=== PATIENT | male | born 1945 | race Two or more races ===

== ENCOUNTER 2020-02-06 09:30 | Outpatient (REF) | payer MEDICARE, SELFPAY | END 2020-02-06 09:31 | disposition home or self-care (01) | LOC: HO.LAB 09:30 | PROVIDERS: Visit Provider Internal Medicine | DX: Z20.828 Contact with and (suspected) exposure to other viral communicable diseases (principal) | CPT/HCPCS: C9803; U0003 ==

== ENCOUNTER 2020-06-04 10:47 | Outpatient (REF) | payer MEDICARE, SELFPAY ==
[2020-06-05 11:32] LABS: Free Prostate Spec Ag 0.1 ng/mL; Percent Free Prostate Spec Ag 25 % (calc) (>25); Prostate Specific Ag Total 0.4 ng/mL (< OR = 4.0)
== END 2020-06-04 10:48 | disposition home or self-care (01) ==
LOC: HO.LAB 10:47
PROVIDERS: PCP Internal Medicine; Visit Provider Urology
DX: N40.1 Benign prostatic hyperplasia with lower urinary tract symptoms (principal); Z12.5 Encounter for screening for malignant neoplasm of prostate
CPT/HCPCS: 36415; 84153; 84154

== ENCOUNTER → 2020-06-11 10:23 | Outpatient (BNVA) | payer MEDICARE, SELFPAY | PROVIDERS: PCP Internal Medicine; Visit Provider Urology | CPT/HCPCS: Q3014 ==

== ENCOUNTER 2020-10-13 16:11 | Outpatient (REF) | payer MEDICARE, SELFPAY ==
[2020-10-13 18:11] LABS: Erythrocyte Sedimentation Rate 8 MM/HR (0-15)
== END 2020-10-13 16:12 | disposition home or self-care (01) ==
LOC: HO.LAB 16:11
PROVIDERS: PCP Internal Medicine; Visit Provider Psychiatry & Neurology Neurology
DX: G43.909 Migraine, unspecified, not intractable, without status migrainosus (principal)
CPT/HCPCS: 36415; 85652

== ENCOUNTER 2020-11-20 10:12 | Day surgery (SDC) | payer MEDICARE, SELFPAY ==
[2020-11-13 10:59] VITALS: BMI 26.2
--- NOTE | 2020-11-16 10:57 | P.CONAN_ITS ---
Documented by User: Florence Olivares NP 11/19/20 10:46 HPI - Anesthesia Eval Consult details Narrative: 75yo M for Upper Endoscopy and Colonoscopy Stable at Routine cardiac OV 08/2020 [facility] Active Problems Active Problems: All Active Problems (Updated 11/13/20 @ 14:24 by Hillary Pinzon, ANGELICA) BPH w urinary obs/LUTS (Acute) Weak urinary stream (Acute) Erectile dysfunction (Acute) Past Medical History Medical History Arteriosclerosis Arthritis Asthma Cancer CVA (cerebral vascular accident) Diastolic dysfunction Elevated cholesterol Erectile dysfunction GERD (gastroesophageal reflux disease) Non-ischemic cardiomyopathy Pulmonary nodule Family History Family History Father No problems noted. Mother No problems noted. Surgical History Surgical History H/O colonoscopy History of ankle surgery History of appendectomy History of esophagogastroduodenoscopy (EGD) History of hemorrhoidectomy History of surgical removal of skin lesion Hx of cataract extraction Hx of transurethral resection of prostate Social History Social History Advance Directives: No (unknown) Advance Directives Information Provided: Yes Meds Allergies Allergy/AdvReac Type Severity Reaction Status Date / Time lisinopril [LISINOPRIL] Allergy Intermediate COUGH Verified 11/13/20 13:35 oxycodone [From PERCOCET] Allergy Intermediate VOMITING Verified 11/13/20 13:35 alprazolam [From XANAX] AdvReac Intermediate VOMITING Verified 11/13/20 13:35 gabapentin AdvReac Abdominal Verified 11/20/20 10:23 Pain Home Medications Medication Instructions Recorded Confirmed Last Taken Type amitriptyline 25 mg tablet 25 mg PO DAILY 01/28/20 11/13/20 Unknown History esomeprazole magnesium 40 mg 40 mg PO DAILY 01/28/20 Unknown History capsule,delayed release furosemide 20 mg tablet (Lasix) 20 mg PO DAILY 01/28/20 Unknown History gabapentin 100 mg capsule 100 mg PO DAILY 01/28/20 Unknown History metoprolol succinate 25 mg 50 mg PO DAILY 01/28/20 11/13/20 11/20/20 History tablet,extended release 24 hr mirabegron 25 mg tablet,extended 25 mg PO DAILY 01/28/20 Unknown History release 24 hr (Myrbetriq) pantoprazole 20 mg tablet,delayed 20 mg PO DAILY 01/28/20 11/13/20 11/20/20 History release sildenafil 100 mg tablet 100 mg PO DAILY PRN 01/28/20 Unknown History tamsulosin 0.4 mg capsule 0.4 mg PO DAILY 01/28/20 Unknown History albuterol sulfate 2.5 mg INHALATION QID PRN 06/11/20 11/13/20 Unknown History aspirin 81 mg tablet,delayed 81 mg PO DAILY 06/11/20 11/13/20 Unknown History release atorvastatin 80 mg tablet 80 mg PO DAILY 06/11/20 11/13/20 Unknown History diclofenac sodium 1 % topical gel 1 g TOPICAL BID PRN 06/11/20 Unknown History losartan 100 mg tablet 100 mg PO DAILY 06/11/20 11/13/20 11/20/20 History multivitamin 1 tab PO DAILY 06/11/20 11/13/20 Unknown History timolol maleate 0.5 % eye drops 1 drp OPHTHALMIC-RIGHT QAM 06/11/20 Unknown History albuterol sulfate 90 mcg/actuation 2 puff INHALATION Q4-6H PRN 11/13/20 11/13/20 Unknown History aerosol inhaler (Ventolin HFA) Exam Exam Date and Time: November 16, 2020 105 Height,Weight and Vital Signs: Height 5 ft 7 in Weight 75.75 kg Narrative Narrative: EKG 02/2020 SB @ 55 Otherwise normal ECHO 2020 LV systolic function low normal with EF 50-55 LA size is normal Trace mitral regurg No pulm htn Asc aorta is normal size No change from 2018 Carotid US 08/2020 R ICA 16-49% stenosis L ICA plaque is complex and irregular Assessment and Plan Assessment Anesthesia Assessment: Chart Reviewed Documented by User: Karyn Zhou MD 11/20/20 10:51 [facility] Past Medical History Medical History Arteriosclerosis Arthritis Asthma Cancer CVA (cerebral vascular accident) Diastolic dysfunction Elevated cholesterol Erectile dysfunction GERD (gastroesophageal reflux disease) Non-ischemic cardiomyopathy Pulmonary nodule Family History Family History Father No problems noted. Mother No problems noted. Family history of problems with anesthesia: No Surgical History Surgical History H/O colonoscopy History of ankle surgery History of appendectomy History of esophagogastroduodenoscopy (EGD) History of hemorrhoidectomy History of surgical removal of skin lesion Hx of cataract extraction Hx of transurethral resection of prostate History of Problems with Anesthesia: No Social History Social History Advance Directives: No (unknown) Advance Directives Information Provided: Yes Meds Allergies Allergy/AdvReac Type Severity Reaction Status Date / Time lisinopril [LISINOPRIL] Allergy Intermediate COUGH Verified 11/13/20 13:35 oxycodone [From PERCOCET] Allergy Intermediate VOMITING Verified 11/13/20 13:35 alprazolam [From XANAX] AdvReac Intermediate VOMITING Verified 11/13/20 13:35 gabapentin AdvReac Abdominal Verified 11/20/20 10:23 Pain Home Medications Medication Instructions Recorded Confirmed Last Taken Type amitriptyline 25 mg tablet 25 mg PO DAILY 01/28/20 11/13/20 Unknown History esomeprazole magnesium 40 mg 40 mg PO DAILY 01/28/20 Unknown History capsule,delayed release furosemide 20 mg tablet (Lasix) 20 mg PO DAILY 01/28/20 Unknown History gabapentin 100 mg capsule 100 mg PO DAILY 01/28/20 Unknown History metoprolol succinate 25 mg 50 mg PO DAILY 01/28/20 11/13/20 11/20/20 History tablet,extended release 24 hr mirabegron 25 mg tablet,extended 25 mg PO DAILY 01/28/20 Unknown History release 24 hr (Myrbetriq) pantoprazole 20 mg tablet,delayed 20 mg PO DAILY 01/28/20 11/13/20 11/20/20 History release sildenafil 100 mg tablet 100 mg PO DAILY PRN 01/28/20 Unknown History tamsulosin 0.4 mg capsule 0.4 mg PO DAILY 01/28/20 Unknown History albuterol sulfate 2.5 mg INHALATION QID PRN 06/11/20 11/13/20 Unknown History aspirin 81 mg tablet,delayed 81 mg PO DAILY 06/11/20 11/13/20 Unknown History release atorvastatin 80 mg tablet 80 mg PO DAILY 06/11/20 11/13/20 Unknown History diclofenac sodium 1 % topical gel 1 g TOPICAL BID PRN 06/11/20 Unknown History losartan 100 mg tablet 100 mg PO DAILY 06/11/20 11/13/20 11/20/20 History multivitamin 1 tab PO DAILY 06/11/20 11/13/20 Unknown History timolol maleate 0.5 % eye drops 1 drp OPHTHALMIC-RIGHT QAM 06/11/20 Unknown History albuterol sulfate 90 mcg/actuation 2 puff INHALATION Q4-6H PRN 11/13/20 11/13/20 Unknown History aerosol inhaler (Ventolin HFA) Exam Height,Weight and Vital Signs: Height 5 ft 7 in Weight 75.75 kg Vital Signs Temp Pulse Resp BP Pulse Ox 11/20/20 10:25 97.3 F 72 16 146/96 H 96 Airway Mallampati Class: II TM Dist: >3cm Neck ROM: Full Partial: Upper Heart: RRR Lungs: CTAB Assessment and Plan Assessment Anesthesia Assessment: Anesthesia Plan Discussed Final Anesthetic Review Family History of Problems with Anesthesia: No History of Problems with Anesthesia: No NPO: Yes ASA Class: III Final Preanesthetic Review: No Changes in Pt Med Stat, Meds/Allgs Chart Reviewed, Consent Obtained/Reviewed and Anes Risks/Benef Reviewed Patient Risk: Intermediate Procedure Risk: Low Assessment/Block/Sedation in SS: Assess/Block/Sedation-SS Anesthetic Plan Anesthetic Plan: MAC: Disposition: Standard PACU
[2020-11-20 10:25] VITALS: BP 146/96; PULSE 72; RESP 16; TEMP 36.3; O2SAT 96
[2020-11-20] MEDS: Lactated Ringers 1,000 ML 50 ML IVCONT (10:34)
--- NOTE | 2020-11-20 10:49 | MHC.SHP ---
Pre-Procedural Eval Section A Date of Service: 11/20/20 The patient is an INPATIENT: No Changes since office visit: No Cold of Flu in the past 2 weeks, No New Medical Problems, No Changes in Medication and No Patient answered all questions The History & Physical has been completed within 30 days and I have reviewed it.: Yes Section B Chief Complaint: hx of polyps,epigastric pain Allergies: Allergies Allergy/AdvReac Type Severity Reaction Status Date / Time lisinopril [LISINOPRIL] Allergy Intermediate COUGH Verified 11/13/20 13:35 oxycodone [From PERCOCET] Allergy Intermediate VOMITING Verified 11/13/20 13:35 alprazolam [From XANAX] AdvReac Intermediate VOMITING Verified 11/13/20 13:35 gabapentin AdvReac Abdominal Verified 11/20/20 10:23 Pain Plan I have reviewed the history and physical and performed a pertinent physical examination on my patient. No changes have occurred unless specified.
[2020-11-20 11:37] VITALS: BP 122/76; PULSE 56; RESP 16; TEMP 36.1; O2SAT 97
--- NOTE | 2020-11-20 11:44 | P.BOP_ITS ---
Brief Operative Note Date of Service: 11/20/20 Pre-op diagnosis: epigastric pain hx polyps Post-op diagnosis: same (gerd, colon polyps) Procedure: egd colonosocpy Surgeon: Glenn Monroy Anesthesia: MAC Was an Business Intelligence Analyst used for this Procedure?: No Estimated blood loss (mL): 5 Condition: stable Disposition: PACU
[2020-11-20 11:52] VITALS: BP 138/87; PULSE 56; RESP 16; O2SAT 95
[2020-11-20 12:07] VITALS: BP 146/83; PULSE 53; RESP 16; O2SAT 98
--- NOTE | 2020-11-20 13:57 | OP_ITS ---
SURGEON: lGenn Monroy MD INDICATIONS: 1. Gastroesophageal reflux disease. 2. Personal history of colon polyps. 3. Epigastric pain. PREOPERATIVE DIAGNOSIS: POSTOPERATIVE DIAGNOSIS: PROCEDURE PERFORMED: Upper endoscopy with biopsy, colonoscopy to the terminal ileum with biopsy and snare polypectomy. ESTIMATED BLOOD LOSS: COMPLICATIONS: ANESTHESIA: ASSISTANTS: SPECIMENS: MEDICATIONS: Monitored anesthesia care. DESCRIPTION OF PROCEDURE: History and physical performed. The risks and benefits of the procedure were explained to the patient. Informed consent was obtained. The patient was placed in the left lateral decubitus position. A digital rectal exam was performed prior to the colonoscopy and was normal. First, the Olympus video gastroscope was introduced into the esophagus, stomach, and duodenum. Examination was performed and the scope was removed. He was repositioned for colonoscopy. Digital rectal exam was performed as above. The Olympus pediatric video colonoscope was introduced into the rectum and advanced to the cecum without difficulty. The cecum was identified by transillumination, palpation, and identification of ileocecal valve. Examination was performed and the scope was removed. He tolerated both procedures well and was taken to recovery area in stable condition. FINDINGS: UPPER ENDOSCOPY: Esophagus: The esophagus was normal. There was no esophagitis. Biopsies were obtained from the EG junction. Stomach: The stomach showed no evidence of masses, ulcers, or polyps. Antral biopsies were obtained. Duodenum: The bulb and second portion were normal. Biopsies were obtained from the second portion. COLONOSCOPY: The terminal ileum was normal. There were 2 polyps in the cecum, one less than 5 mm, was removed with biopsy forceps. The other measured approximately 6 mm and were removed with a snare. The mucosa appeared normal. There was mild diverticulosis of the sigmoid. At 45 cm, was a 6 mm polyp, which was snared. Random biopsies were obtained from the sigmoid. Retroflexed examination was normal. There were some small internal hemorrhoids. IMPRESSION: 1. Gastroesophageal reflux disease. 2. Colon polyps. RECOMMENDATION: Follow up the biopsy results. MD MATTIE Soni/YESENIA / [id number]
== END 2020-11-20 13:25 | disposition home or self-care (01) ==
PROVIDERS: PCP Internal Medicine; Visit Provider Internal Medicine Gastroenterology
PROC: (CPT 43239; principal; 2020-11-20 10:30)
DX: R10.13 Epigastric pain (principal); R19.4 Change in bowel habit; D12.0 Benign neoplasm of cecum; D12.3 Benign neoplasm of transverse colon; D12.6 Benign neoplasm of colon, unspecified; K64.8 Other hemorrhoids; K57.30 Diverticulosis of large intestine without perforation or abscess without bleeding; K21.9 Gastro-esophageal reflux disease without esophagitis; I10 Essential (primary) hypertension; Z86.010 Personal history of colon polyps
CPT/HCPCS: 43239; 45380; 45385; 88305; 88342

== ENCOUNTER 2021-06-07 10:55 | Outpatient (REF) | payer MEDICARE, SELFPAY ==
[2021-06-07 12:56] LABS: Prostate Specific Antigen 0.37 ng/mL (<0.05-4.0)
== END 2021-06-07 10:56 | disposition home or self-care (01) ==
LOC: HO.LAB 10:55
PROVIDERS: PCP Internal Medicine; Visit Provider Urology
DX: Z12.5 Encounter for screening for malignant neoplasm of prostate (principal); N13.8 Other obstructive and reflux uropathy; N40.1 Benign prostatic hyperplasia with lower urinary tract symptoms
CPT/HCPCS: 36415; 84153

== ENCOUNTER → 2021-06-15 10:22 | Outpatient (BNVA) | payer MEDICARE, SELFPAY | PROVIDERS: PCP Internal Medicine; Visit Provider Urology | DX: N40.1 Benign prostatic hyperplasia with lower urinary tract symptoms (principal); N13.8 Other obstructive and reflux uropathy; R39.12 Poor urinary stream; N52.9 Male erectile dysfunction, unspecified | CPT/HCPCS: Q3014 ==

== ENCOUNTER 2021-08-20 10:23 | Outpatient (REF) | payer OTHER, SELFPAY ==
[2021-08-20 11:21] LABS: Appearance Urine CLEAR; Color Urine YELLOW; Glucose Urine UA NEG (NEG); Leukocyte Esterase Urine NEG (NEG); Nitrite Urine NEG (NEG); Specific Gravity - Urine <= 1.005 (1.005-1.025); Urine Blood NEG (NEG); Urine Ketones NEG (NEG); Urine Protein NEG (NEG-TRACE)
[2021-08-20 11:32] LABS: Mucus Urine TRACE /LPF; RBC Urine 0-2 /HPF (0); WBC Urine 0-2 /HPF (0-4)
== END 2021-08-20 10:24 | disposition home or self-care (01) ==
LOC: HO.LAB 10:23
PROVIDERS: PCP Internal Medicine; Visit Provider Urology
DX: N40.1 Benign prostatic hyperplasia with lower urinary tract symptoms (principal); N13.8 Other obstructive and reflux uropathy
CPT/HCPCS: 81001; 87086

== ENCOUNTER 2021-09-24 11:20 | Outpatient (REF) | payer OTHER, SELFPAY ==
[2021-09-24 12:41] LABS: Appearance Urine CLEAR; Color Urine YELLOW; Glucose Urine UA NEG (NEG); Leukocyte Esterase Urine NEG (NEG); Nitrite Urine NEG (NEG); Urine Blood NEG (NEG); Urine Ketones NEG (NEG); Urine Protein NEG (NEG-TRACE)
[2021-09-24 13:00] LABS: Squamous Epithelial Cell Urine TRACE /LPF; WBC Urine 0-2 /HPF (0-4)
[2021-09-24 13:01] LABS: RBC Urine 0-2 /HPF (0)
== END 2021-09-24 11:21 | disposition home or self-care (01) ==
LOC: HO.LAB 11:20
PROVIDERS: PCP Internal Medicine; Visit Provider Urology
DX: N40.1 Benign prostatic hyperplasia with lower urinary tract symptoms (principal); N13.8 Other obstructive and reflux uropathy
CPT/HCPCS: 81001; 87086

== ENCOUNTER → 2021-12-17 12:59 | Outpatient (BNVA) | payer OTHER, SELFPAY | PROVIDERS: PCP Internal Medicine; Visit Provider Urology | DX: N40.1 Benign prostatic hyperplasia with lower urinary tract symptoms (principal); N13.8 Other obstructive and reflux uropathy; N52.9 Male erectile dysfunction, unspecified | CPT/HCPCS: 51798; 99212 ==

== ENCOUNTER 2022-05-30 11:32 | Emergency (ER) | payer OTHER, SELFPAY ==
--- NOTE | ~2022-05-30 | XR_ITS ---
EXAMINATION: XR CHEST CLINICAL INFORMATION: Cough, shortness of breath COMPARISON: Chest radiographs 07/03/2018, 07/19/2016, CT chest 10/02/2018 TECHNIQUE: 2 views of the chest were obtained. FINDINGS: There is no lobar or segmental airspace consolidation or definite groundglass opacity. No effusion. The costophrenic sulci are clear. The heart is normal in size. The hilar and mediastinal contours and bony structures are unremarkable. XR/XR chest 2V IMPRESSION: Unremarkable examination.
[2022-05-30 11:50] VITALS: BP 129/80; BP 144/90; PULSE 70; PULSE 81; RESP 18; TEMP 36.6; O2SAT 97; BMI 24.4
--- NOTE | 2022-05-30 12:02 | PC.NURSE ---
nasal swab/throat swab performed, awaiting multiskill operator to complete triage
[2022-05-30 12:17] LABS: IDNOW Serial# 6674DD1D; Strep A Nucleic Acid Negative (Negative)
--- NOTE | 2022-05-30 12:24 | PC.NURSE ---
patient a&ox3, pt c/o 10/03 body aches and chest discomfort when coughing only, vitals are stable, nasal swab/throat swab performed, pt stated that a relative in the house woke up this am coughing as well. 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
[2022-05-30 12:47] LABS: Influenza A PCR NEGATIVE (Negative); Influenza B PCR NEGATIVE (Negative); Resp Syncy Virus RNA Qual PCR NEGATIVE (Negative); SARS COV2 PCR INHOUSE NEGATIVE (Negative)
--- NOTE | 2022-05-30 13:31 | ED_ITS ---
HPI - General Adult General Chief complaint: Upper Respiratory Symptoms Stated complaint: COUGH W/CP,SORE,FEVER,SOB X'S 2 WEEKS Time Seen by Provider: 05/30/22 12:58 Source: patient Mode of arrival: ambulatory Limitations: no limitations History of Present Illness HPI narrative: 77-year-old male with hypertension, prediabetes presents with cough and mucus production. Symptoms started approximately 3 weeks ago. Describes symptoms as moderate to severe. Associated with a pleuritic type of chest pain, congestion. Symptoms are worse with deep inspiration and coughing. He does produce mucus that is yellow to green in color. He had a fever 1 week ago but that resolved. He has a mild sore and scratchy throat but no difficulty swallowing. Able tolerate liquids and solids well. He has tried Tylenol as needed but no cough suppressant medications. This did not improve his symptoms significantly. He denies any sick contacts. Related Data Home Medications Medication Instructions Recorded Confirmed amitriptyline 25 mg tablet 25 mg PO DAILY 01/28/20 11/13/20 furosemide 20 mg tablet (Lasix) 20 mg PO DAILY 01/28/20 gabapentin 100 mg capsule 100 mg PO DAILY 01/28/20 metoprolol succinate 25 mg 50 mg PO DAILY 01/28/20 11/13/20 tablet,extended release 24 hr sildenafil 100 mg tablet 100 mg PO DAILY PRN 01/28/20 albuterol sulfate 2.5 mg/3 mL 2.5 mg inhalation QID PRN Wheezing 06/11/20 11/13/20 (0.083 %) solution for nebulization aspirin 81 mg tablet,delayed 81 mg PO DAILY 06/11/20 11/13/20 release atorvastatin 80 mg tablet 80 mg PO DAILY 06/11/20 11/13/20 diclofenac sodium 1 % topical gel 1 g topical BID PRN 06/11/20 losartan 100 mg tablet 100 mg PO DAILY 06/11/20 11/13/20 multivitamin 1 tab PO DAILY 06/11/20 11/13/20 albuterol sulfate 90 mcg/actuation 2 puff inhalation Q4-6H PRN 11/13/20 11/13/20 aerosol inhaler (Ventolin HFA) Wheezing blood sugar diagnostic (FreeStyle #10 ea 06/15/21 Lite Strips) lancets 33 gauge (TRUEplus Lancets) #100 ea 06/15/21 metformin 500 mg tablet,extended 500 mg PO DAILY 06/15/21 release 24 hr pantoprazole 40 mg tablet,delayed 40 mg PO DAILY 06/15/21 release nitroglycerin 0.4 mg sublingual 0 mg sublingual 12/17/21 tablet Previous Rx's Medication Instructions Recorded mirabegron 25 mg tablet,extended 25 mg PO DAILY 90 days #90 tabs 01/04/22 release 24 hr (Myrbetriq) azithromycin 250 mg tablet See Rx Instructions PO .COMPLEX #6 05/30/22 tabs benzonatate 200 mg capsule 200 mg PO TID PRN cough #14 caps 05/30/22 prednisone 20 mg tablet 20 mg PO DAILY #5 tabs 05/30/22 Allergies Allergy/AdvReac Type Severity Reaction Status Date / Time lisinopril [LISINOPRIL] Allergy Intermediate COUGH Verified 12/16/21 15:11 oxycodone [From PERCOCET] Allergy Intermediate VOMITING Verified 12/16/21 15:11 alprazolam [From XANAX] AdvReac Intermediate VOMITING Verified 12/16/21 15:11 gabapentin AdvReac Abdominal Verified 12/16/21 15:11 Pain Review of Systems Review of Systems: CONSTITUTIONAL: Denies weight loss, fever and chills. HEENT: Denies changes in vision and hearing. RESPIRATORY: Positive SOB and cough. CV: Denies palpitations positive CP. GI: Denies abdominal pain, nausea, vomiting and diarrhea. : Denies dysuria and urinary frequency. MSK: Denies myalgia and joint pain. SKIN: Denies rash and pruritus. NEUROLOGICAL: Denies headache and syncope. PSYCHIATRIC: Denies recent changes in mood. Denies anxiety and depression. All other ROS are negative unless in HPI PMFSH Past Medical History Medical History Arteriosclerosis Arthritis Asthma Cancer CVA (cerebral vascular accident) Diabetes mellitus Diastolic dysfunction Elevated cholesterol Erectile dysfunction GERD (gastroesophageal reflux disease) Non-ischemic cardiomyopathy Pulmonary nodule Surgical History H/O colonoscopy History of ankle surgery History of appendectomy History of esophagogastroduodenoscopy (EGD) History of hemorrhoidectomy History of surgical removal of skin lesion Hx of cataract extraction Hx of transurethral resection of prostate Family History Family History Father No problems noted. Mother No problems noted. Social History Social History Alcohol intake: current Alcohol intake frequency: holidays/special occasions only Alcohol type: beer Smoked in Last 30 Days: No Use of substances other than those prescribed or required for medical reasons: No Advance Directives: No Advance Directives Information Provided: Yes Physical Exam ED Vital Signs: Vital Signs - 24 hr 05/30/22 11:50 Temperature 97.9 F Pulse Rate 81 Respiratory Rate 18 Blood Pressure 144/90 H Pulse Oximetry 97 Oxygen Delivery Method Room Air BMI result Body Mass Index 24.4 GEN: Well developed, no acute distress, alert, oriented HEENT: Normocephalic, atraumatic, normal external ears, nose appears normal, no oropharyngeal edema or exudates Eyes: Normal to appearance Neck: Supple, no lymphadenopathy Respiratory: Talks in complete sentences, no respiratory distress, clear to auscultation bilaterally Cardiovascular: Regular rate and rhythm, no murmurs rubs or gallops Abdomen: Soft, nontender, nondistended, no guarding, no rebound Back: No CVA tenderness Extremities: No clubbing cyanosis or edema Neurologic: No focal neurologic deficits, cranial nerves 2-12 intact, strength is 5/5 bilaterally, gait normal Skin: No rash Course Course Course Narrative: 77-year-old male with hypertension, prediabetes presents with 3 weeks of upper respiratory symptoms. Examination was unremarkable. Oxygen saturations were appropriate on room air. Nonlabored respirations. Lungs are clear to auscultation bilaterally. Given the duration, severity and persistence of s ymptoms, patient will be treated for bacterial bronchitis. I will start the patient on azithromycin, steroids, cough suppressants. He has nebulizers at home. Will follow up with his primary care but brighter within a few days. For any worsening or concerning symptoms, patient will return for re-evaluation. All discharge instructions and results were discussed with the patient Medical Decision Making Medical Decision Making MDM Narrative: 77-year-old male with hypertension, prediabetes presents with 3 weeks of upper respiratory symptoms. Examination was unremarkable. Oxygen saturations were appropriate on room air. Nonlabored respirations. Lungs are clear to auscultation bilaterally. Given the duration, severity and persistence of symptoms, patient will be treated for bacterial bronchitis. I will start the patient on azithromycin, steroids, cough suppressants. He has nebulizers at home. Will follow up with his primary care but brighter within a few days. For any worsening or concerning symptoms, patient will return for re-evaluation. All discharge instructions and results were discussed with the patient Differential Diagnosis Differential Diagnoses: The differential diagnosis associated with the presentation includes (Bronchitis, pneumonia, COVID, influenza, parainfluenza, viral syndrome) Bronchitis Admission/Observation Consideration of admission/observation: Escalation of care including admission/observation considered Lab Data MDM Lab Attestation statement: I reviewed the patient's lab results. Labs: Lab Results 05/30/22 05/30/22 Range/Units 11:58 11:58 Influenza Type A (PCR) NEGATIVE (Negative) Influenza Type B (PCR) NEGATIVE (Negative) RSV RNA Qual (PCR) NEGATIVE (Negative) SARS-CoV-2 RNA (RT-PCR) NEGATIVE (Negative) S. pyogenes GrpA ROEL Negative (Negative) Independent Interpretation I performed an independent interpretation of an: Plain X-Ray (Chest x-ray no acute cardiopulmonary disease) Prescription Management I considered prescription management with: Antibiotic Chronic Conditions Patient?s care impacted by: Diabetes and Hypertension Discharge Plan Discharge Clinical Impression: Upper respiratory infection, Bronchitis Patient Disposition: Home, Self-Care Instructions: Acute Bronchitis (ED) Prescriptions: New prednisone 20 mg tablet 20 mg PO DAILY Qty: 5 0RF benzonatate 200 mg capsule 200 mg PO TID PRN (Reason: cough) Qty: 14 0RF azithromycin 250 mg tablet See Rx Instructions .ROUTE .COMPLEX Qty: 6 0RF Rx Instructions: For 250 mg dose pack: take 500 mg today (day 1), then 250 mg for 4 days (days 2-5) No Action Myrbetriq 25 mg tablet extended release 24 hr 25 mg PO DAILY 90 Days Qty: 90 1RF albuterol sulfate [Ventolin HFA] 90 mcg/actuation Hfa Aerosol Inhaler 2 puff INHALATION Q4-6H PRN (Reason: Wheezing) albuterol sulfate 2.5 mg /3 mL (0.083 %) solution for nebulization 2.5 mg inhalation QID PRN (Reason: Wheezing) atorvastatin 80 mg tablet 80 mg PO DAILY losartan 100 mg tablet 100 mg PO DAILY aspirin 81 mg tablet,delayed release (DR/EC) 81 mg PO DAILY multivitamin Tablet 1 tab PO DAILY diclofenac sodium 1 % gel 1 g topical BID PRN gabapentin 100 mg capsule 100 mg PO DAILY amitriptyline 25 mg tablet 25 mg PO DAILY sildenafil 100 mg tablet 100 mg PO DAILY PRN Rx Instructions: administer 30 minutes to 4 hours before activity furosemide [Lasix] 20 mg tablet 20 mg PO DAILY metoprolol succinate 25 mg tablet extended release 24 hr 50 mg PO DAILY metformin 500 mg tablet extended release 24 hr 500 mg PO DAILY pantoprazole 40 mg tablet,delayed release (DR/EC) 40 mg PO DAILY (DME) lancets [TRUEplus Lancets] 33 gauge misc See Rx Instructions topical .MEDSUPPLY Qty: 100 Rx Instructions: As directed (DME) FreeStyle Lite Strips Strip See Rx Instructions Not Applicable BID Qty: 10 Rx Instructions: As directed nitroglycerin 0.4 mg tablet, sublingual 0 mg sublingual Referrals: Clayton Chavez MD [Primary Care Provider] - 3 days Print Language: British
[2022-05-30 13:47] VITALS: BP 148/86; PULSE 76; RESP 18; TEMP 36.7; O2SAT 98
== END 2022-05-30 13:48 | disposition home or self-care (01) ==
PROVIDERS: Emergency Provider Emergency Medicine; PCP Internal Medicine
DX: J06.9 Acute upper respiratory infection, unspecified (principal); J40 Bronchitis, not specified as acute or chronic; Z20.822 Contact with and (suspected) exposure to COVID-19; Z20.828 Contact with and (suspected) exposure to other viral communicable diseases; E11.9 Type 2 diabetes mellitus without complications; I10 Essential (primary) hypertension
CPT/HCPCS: 0241U; 71046; 87651; 99283; 99284

== ENCOUNTER → 2022-08-26 15:07 | Outpatient (BNVA) | payer OTHER, SELFPAY | PROVIDERS: PCP Internal Medicine; Visit Provider Student in an Organized Health Care Education/Training Program | DX: M79.7 Fibromyalgia (principal) | CPT/HCPCS: 99202 ==

== ENCOUNTER 2022-11-21 13:28 | Outpatient (AMB) | payer OTHER, SELFPAY ==
--- NOTE | 2022-11-21 13:43 | A.OFFVIS_ITS ---
Intake Vital Signs 11/21/22 13:46 Height 5 ft 7 in Weight 167 lb BMI 26.2 BP 159/85 H Blood Pressure Location Rt brachial Position Sitting Pulse 76 Intake Visit Reasons: Hemorrhoids Intake Note: This patient presents for an assessment for hemorrhoids. Patient c/o; reports occasional rectal bleeding, reports irritation when has diarrhea, reports Hx chronic gastritis, reports abdominal pain. 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 Name: Nilson Accompanied by: Other Relationship Allergies lisinopril [LISINOPRIL] Allergy (Intermediate, Verified 11/21/22 13:47) COUGH oxycodone [From PERCOCET] Allergy (Intermediate, Verified 11/21/22 13:47) VOMITING alprazolam [From XANAX] Adverse Reaction (Intermediate, Verified 11/21/22 13:47) VOMITING gabapentin Adverse Reaction (Verified 11/21/22 13:47) Abdominal Pain Medication List - Last Reconciled 11/21/22 by Johnny Carney MD albuterol sulfate 90 mcg/actuation (Ventolin HFA) 2 puffs inhalation Q4-6H PRN albuterol sulfate 2.5 mg inhalation QID PRN amitriptyline 25 mg PO DAILY aspirin 81 mg PO DAILY atorvastatin 80 mg PO DAILY blood sugar diagnostic (FreeStyle Lite Strips) As directed diclofenac sodium 1% 1 g topical BID PRN furosemide (Lasix) 20 mg PO DAILY lancets (TRUEplus Lancets) As directed losartan 100 mg PO DAILY metformin ER 500 mg PO DAILY metoprolol tartrate 37.5 mg PO DAILY multivitamin 1 tab PO DAILY nitroglycerin 0 mg sublingual pantoprazole 40 mg PO DAILY sildenafil 100 mg PO DAILY PRN HPI Hemorrhoids HPI Details 77-year-old male referred for hemorrhoid issues. He says he had undergone hemorrhoid surgery in [place] about 20 years ago. He says for the past 6 years he has been noticing some occasional bleeding with bowel movements described as blood on wiping. He occasionally has some discomfort in his anus as well with what he described as prolapse. He denies problems with constipation. [facility] Medical History (Updated 11/21/22 @ 14:09 by Johnny Carney MD) Arteriosclerosis Arthritis Asthma Bleeding hemorrhoids Cancer CVA (cerebral vascular accident) Diabetes mellitus Diastolic dysfunction Elevated cholesterol Erectile dysfunction GERD (gastroesophageal reflux disease) Non-ischemic cardiomyopathy Pulmonary nodule Surgical History H/O colonoscopy History of ankle surgery History of appendectomy History of esophagogastroduodenoscopy (EGD) History of hemorrhoidectomy History of surgical removal of skin lesion Hx of cataract extraction Hx of transurethral resection of prostate Family History Father Prostate cancer Mother Parkinson disease Social History Household Members Other:: Daughter and grand child Alcohol intake: former Patient Tobacco Use Status: Former Tobacco user Review of Systems Const Denies chills and Denies fever(s) Card Denies chest pain, Denies dyspnea and Denies dyspnea on exertion Resp Denies cough, Denies dyspnea and Denies dyspnea on exertion GI Denies hematochezia and Denies change in bowel habits Denies hematuria and Denies difficulty urinating Musc Denies back pain and Denies limited range of motion Neuro Denies focal weakness and Denies convulsions Psych Denies depression and Denies mood swings Physical Exam Vital Signs: Last Vital Signs Pulse 76 11/21/22 13:46 BP 159/85 H 11/21/22 13:46 BMI result Body Mass Index 26.2 Const General: comfortable and no acute distress Orientation/consciousness: patient oriented x3 Neck Neck: Yes no lymphadenopathy Resp Auscultation: clear to auscultation bilaterally Cardio Rhythm: regular rhythm GI Other: Rectal exam shows - small to moderate size external hemorrhoid on the right, anoscopy as described Palpation (GI): Soft to palpation, nontender and no guarding Neuro General: patient oriented x3 Office Procedures Anoscopy He was in lisette-knife position. The anoscope was gently inserted. A full examination of the entire anal canal was done. He did have this mixed hemorrhoidal column internal and external on the right side. There were no other lesions. There was no fissure or any induration. There was no bleeding. [id number] Assessment & Plan Assessment & Plan (1) Bleeding hemorrhoids: Code(s): K64.9 - Unspecified hemorrhoids Plan: He has mixed column of internal and external hemorrhoids on the right side seen on anoscopy. Describes occasional bleeding. He said that this does not happen every day. I did explain to him the option of proceeding with hemorrhoidectomy. I discussed the technique of this procedure. I reviewed the risks including but not limited to bleeding, infections, postop pain, as well as the benefits alternatives. He wants to try nonsurgical measures for now including suppositories. I will send this to his pharmacy. He is welcome to come back to the office to follow- up if he wants me to re-evaluate this down the line. Coding Level of Care Code New Pt Level 3 (37091) Diagnoses Bleeding hemorrhoids K64.9 CPT Codes Details - CPT: 34352-Bmqggjff ([id number])
[2022-11-21 13:46] VITALS: BP 159/85; PULSE 76; BMI 26.2
== END 2022-11-21 14:08 | disposition home or self-care (01) ==
PROVIDERS: PCP Internal Medicine; Referring Provider Internal Medicine; Visit Provider Surgery
DX: K64.8 Other hemorrhoids (principal)
CPT/HCPCS: 46600; 99203

== ENCOUNTER → 2022-11-21 13:28 | Outpatient (BNVA) | payer OTHER, SELFPAY | PROVIDERS: PCP Internal Medicine; Referring Provider Internal Medicine; Visit Provider Surgery | DX: K64.9 Unspecified hemorrhoids (principal) | CPT/HCPCS: 46600; 99202 ==

== ENCOUNTER 2022-12-05 11:06 | Outpatient (REF) | payer OTHER, SELFPAY | END 2022-12-05 11:07 | disposition home or self-care (01) | LOC: HO.LAB 11:06 | PROVIDERS: PCP Internal Medicine; Visit Provider Urology | DX: N40.1 Benign prostatic hyperplasia with lower urinary tract symptoms (principal); N13.8 Other obstructive and reflux uropathy; Z12.5 Encounter for screening for malignant neoplasm of prostate | CPT/HCPCS: 36415; 84153 ==

== ENCOUNTER 2022-12-20 13:13 | Outpatient (AMB) | payer OTHER, SELFPAY ==
--- NOTE | 2022-12-20 13:15 | MHC.OFFVIS ---
Intake Intake Visit Reasons: 1Y PSA(set) Intake Note: Patient is Present for Follow Up PSA/PVR Urology Medication: Sildenafil Antibiotic Allergies: None Blood Thinners: Aspirin Pharmacy: [facility] Pharmacy PVR: 32ml Allergies lisinopril [LISINOPRIL] Allergy (Intermediate, Verified 12/20/22 13:32) COUGH oxycodone [From PERCOCET] Allergy (Intermediate, Verified 12/20/22 13:32) VOMITING alprazolam [From XANAX] Adverse Reaction (Intermediate, Verified 12/20/22 13:32) VOMITING gabapentin Adverse Reaction (Verified 12/20/22 13:32) Abdominal Pain Medication List - Last Reconciled 12/20/22 by Ke Rivera MD albuterol sulfate 90 mcg/actuation (Ventolin HFA) 2 puffs inhalation Q4-6H PRN albuterol sulfate 2.5 mg inhalation QID PRN amitriptyline 25 mg PO DAILY aspirin 81 mg PO DAILY atorvastatin 80 mg PO DAILY blood sugar diagnostic (FreeStyle Lite Strips) As directed diclofenac sodium 1% 1 g topical BID PRN furosemide (Lasix) 20 mg PO DAILY hydrocortisone acetate (Anucort-HC) 25 mg [place] BID PRN lancets (TRUEplus Lancets) As directed losartan 100 mg PO DAILY metformin ER 500 mg PO DAILY metoprolol tartrate 37.5 mg PO DAILY multivitamin 1 tab PO DAILY nitroglycerin 0 mg sublingual pantoprazole 40 mg PO DAILY sildenafil 100 mg PO DAILY PRN tadalafil 5 mg PO DAILY 90 days HPI HPI Comments History of Present Illness Details Shelton is a pleasant male. He is a patient Dr. sOman. He is seen for the following urologic conditions - night lower urinary tract symptoms - erectile dysfunction Uzbek translation provided by qualified physicist astrophysics Feels current urinary performance is stable Had improved his diabetic control Continue daily tadalafil for bladder stability Lower Urinary tract symptoms Previously on tamsulosin and Myrbetriq Prior therapy laser prostatectomy PSA - 06/14 0.4 PFSH Medical History (Updated 12/20/22 @ 14:00 by Ke Rivera MD) Bleeding hemorrhoids Diabetes mellitus Arteriosclerosis Cancer Pulmonary nodule Non-ischemic cardiomyopathy CVA (cerebral vascular accident) Arthritis Asthma GERD (gastroesophageal reflux disease) Elevated cholesterol Diastolic dysfunction Erectile dysfunction Surgical History Hx of transurethral resection of prostate History of esophagogastroduodenoscopy (EGD) H/O colonoscopy Hx of cataract extraction History of ankle surgery History of surgical removal of skin lesion History of hemorrhoidectomy History of appendectomy Family History Father Prostate cancer Mother Parkinson disease Social History Household Members Other:: Daughter and grand child Alcohol intake: former Patient Tobacco Use Status: Former Tobacco user Review of Systems Const Denies chills and Denies fever(s) Card Reports no additional complaints and Denies syncope Resp Denies cough GI Denies abdominal pain and Denies heartburn Reports as per HPI and Denies change in libido Neuro Denies syncope Psych Denies change in libido Endo Denies change in libido Physical Exam Const General: cooperative, healthy appearing, comfortable and no acute distress Orientation/consciousness: patient oriented x3 HEENT Face and sinus: Yes normal facial exam Mouth: moist mucous membranes Neck Neck: Yes normal visual inspection, Yes full ROM and Yes trachea midline Chest Chest palpation & inspection: normal inspection of the chest Resp Effort & Inspection: normal respiratory effort, able to speak in complete sentences and no respiratory distress GI Inspection: Yes normal to inspection Back/Spine/Pelvis Cervical Spine: normal cervical lordosis Thoracic/Lumbar Spine: thoracic and lumbar spine normal to inspection Skin General skin exam: no rashes or lesions noted Neuro General: patient oriented x3, gait normal, tone normal and moves all extremities Extrem General: Yes normal to inspection and Yes capillary refill normal Office Procedures Post Void Residual Post Residual Void Post Void Residual (PVR): 32 [id number] Void Residual by ultrasound Results AMB Urinalysis, Automated UA Leukoctes 0 Cassidy/uL Last Edit by IDALIA Deleon on 12/20/22 13:34 UA Nitrite Negative Last Edit by IDALIA Deleon on 12/20/22 13:34 UA Urobilinogen 1 mg/dL Last Edit by IDALIA Deleon on 12/20/22 13:34 UA Protein 15 mg/dL Last Edit by IDALIA Deleon on 12/20/22 13:34 UA pH 6.0 Last Edit by IDALIA Deleon on 12/20/22 13:34 UA Blood 0 Mariano/uL Last Edit by Jennielorene Cordoba, RMA on 12/20/22 13:34 UA Specific [place] 1.015 Last Edit by Jennie Cordoba, RMA on 12/20/22 13:34 UA Ketone Negative Last Edit by Jennie Cordoba, RMA on 12/20/22 13:34 UA Bilirubin 1 mg/dL Last Edit by Jennie Cordoba, RMA on 12/20/22 13:34 UA Glucose 0 mg/dL Last Edit by Jennie Cordoba, RMA on 12/20/22 13:34 Results Reviewed Results Reviewed: Laboratory Last Values Urine pH (Auto) 6.0 12/20/22 13:33 Specific [place] (Auto) 1.015 12/20/22 13:33 Urine Protein (Auto) 15 mg/dL 12/20/22 13:33 Glucose (UA)(Auto) 0 mg/dL 12/20/22 13:33 Urine Ketones (Auto) Negative 12/20/22 13:33 Urine Blood (Auto) 0 Mariano/uL 12/20/22 13:33 Urine Nitrite (Auto) Negative 12/20/22 13:33 Urine Bilirubin (Auto) 1 mg/dL 12/20/22 13:33 Urine Urobilinogen (Auto) 1 mg/dL 12/20/22 13:33 Leukocyte Esterase (Auto) 0 Cassidy/uL 12/20/22 13:33 Assessment & Plan Assessment & Plan (1) Erectile dysfunction due to arterial insufficiency: Code(s): N52.01 - Erectile dysfunction due to arterial insufficiency (2) BPH w urinary obs/LUTS: Code(s): N40.1 - Benign prostatic hyperplasia with lower urinary tract symptoms; N13.8 - Other obstructive and reflux uropathy (3) Weak urinary stream: Code(s): R39.12 - Poor urinary stream Plan Trial tadalafil Orders: Orders AMB Post Void Residual by ultrasound 12/20/22 N13.8 - Other obstructive and reflux uropathy, N40.1 - Benign prostatic hyperplasia with lower urinary tract symptoms AMB Urinalysis Automated 12/20/22 Z13.9 - Encounter for screening, unspecified Medications: New tadalafil BIN [id number] [facility] DR33 5 mg PO DAILY 90 days 90 tabs 1RF sexual activity N52.01 - Erectile dysfunction due to arterial insufficiency tadalafil BIN [id number] [facility] DR33 5 mg PO DAILY 90 tabs 1RF sexual activity 90 days N52.01 - Erectile dysfunction due to arterial insufficiency Patient Instructions: Imaging studies, laboratory and physical exam results were discussed and reviewed in detail. No major barriers to patient understanding were identified. An opportunity to ask questions regarding the treatment plan was provided. All questions were answered. The patient expressed understanding and agreement with the above treatment plan. The patient is aware they should contact our office by phone for worsening of their current condition or the appearance of new urologic symptoms. Compliance is encouraged with any medications and followup testing that is ordered. It is a privilege to participate in the urologic care of your patient. If you have any questions or concerns regarding treatment for the above conditions, or other urologic issues, please do not hesitate to contact me. The office telephone contact is [phone]. This note is constructed using voice recognition software. While every effort has been made to ensure accuracy assembler wire group errors may have been included. Yours sincerely, Dr Ke Rivera MD, [facility] - Urology Providers of Expert, Compassionate Care for the Genitourinary System Coding Level of Care Code Est Pt Level 4 (28354) Diagnoses Erectile dysfunction due to arterial insufficiency N52.01 BPH w urinary obs/LUTS N40.1; N13.8 Weak urinary stream R39.12 CPT Codes Post Residual Void - PVR CPT Code: 66642-Gpho Void Residual by ultrasound ([id number])
== END 2022-12-20 14:01 | disposition home or self-care (01) ==
PROVIDERS: PCP Internal Medicine; Visit Provider Urology
DX: N52.01 Erectile dysfunction due to arterial insufficiency (principal); N40.1 Benign prostatic hyperplasia with lower urinary tract symptoms; N13.8 Other obstructive and reflux uropathy; R39.12 Poor urinary stream
CPT/HCPCS: 99213

== ENCOUNTER → 2022-12-20 13:13 | Outpatient (BNVA) | payer OTHER, SELFPAY | PROVIDERS: Visit Provider Urology | DX: N40.1 Benign prostatic hyperplasia with lower urinary tract symptoms (principal); N13.8 Other obstructive and reflux uropathy; N52.01 Erectile dysfunction due to arterial insufficiency; R39.12 Poor urinary stream | CPT/HCPCS: 51798; 81003; 99212 ==

== ENCOUNTER 2023-02-14 11:17 | Outpatient (REF) | payer OTHER, SELFPAY ==
[2023-02-14 13:23] LABS: MANUAL DIFF FLAG NO
[2023-02-14 13:30] LABS: Basophils Percent Auto 0.5 % (0-2); Eosinophils Absolute Auto 0.1 X10*3/uL (0.0-0.4); Hematocrit 48.1 % (42.0-52.0); Hemoglobin 16.4 g/dl (14.0-18.0); Imm Gran Abs Auto 0.04 X10*3/uL (0.00-0.03); Imm Gran Pct Auto 0.5 % (0.0-0.4); Lymphocytes Absolute Auto 2.6 X10*3/uL (1.2-4.9); Mean Corpuscular HGB Conc 34.1 g/dl (31.0-36.0); Mean Corpuscular Hemoglobin 32.7 pg (27.0-33.0); Mean Corpuscular Volume 95.8 fL (80.0-98.0); Mean Platelet Volume 10.5 fL (9.4-12.4); Monocytes Absolute Auto 0.6 X10*3/uL (0.1-1.2); Monocytes Percent Auto 7.5 % (2-11); Neutrophils Absolute Auto 4.7 x10*3/uL (2.0-8.3); Neutrophils Percent Auto 58.5 % (45-73); Platelet Count 268 X10*3/uL (160-400); Red Blood Count 5.02 X10*6/uL (4.60-5.80); Red Cell Distribution Width 12.7 % (11.0-16.0)
[2023-02-14 13:44] LABS: Cholesterol 241 mg/dL (<200); HDL Cholesterol 39 mg/dL (>40); LDL Cholesterol Calculated 173 mg/dL (<100); Triglycerides 145 mg/dL (<150)
[2023-02-14 13:45] LABS: Alanine Aminotransferase 20 U/L (0-40); Albumin Level 4.3 g/dL (3.5-5.0); Alkaline Phosphatase 70 U/L (39-117); Anion Gap 10 (12-20); Aspartate Amino Transferase 24 U/L (5-37); Bilirubin Direct 0.3 mg/dL (0.0-0.5); Bilirubin Total 0.8 mg/dL (0.0-1.0); Blood Urea Nitrogen 13 mg/dL (9-16); Calcium 9.8 mg/dL (8.4-10.2); Carbon Dioxide 30 mmol/L (22-29); Chloride 102 mmol/L (96-108); Estimated Glomerular Filt Rate > 60; Glucose Random 110 mg/dL (60-115); Potassium 4.5 mmol/L (3.3-5.1); Sodium 137 mmol/L (135-145); Total Protein 7.5 g/dL (6.5-8.0)
[2023-02-14 14:07] LABS: Reflex LDLD? No
== END 2023-02-14 11:18 | disposition home or self-care (01) ==
LOC: HO.HHCL 11:17
PROVIDERS: Visit Provider Internal Medicine
DX: I10 Essential (primary) hypertension (principal)
CPT/HCPCS: 36415; 80048; 80061; 80076; 85025

== ENCOUNTER 2023-08-29 10:27 | Emergency (ER) | payer OTHER, SELFPAY ==
[2023-08-29] VITALS (7 sets, daily range): BP systolic 109–147; BP diastolic 77–88; PULSE 59–75; RESP 16–20; TEMP 36.8–36.9; O2SAT 96–98; BMI 25.7
--- NOTE | ~2023-08-29 | XR_ITS ---
EXAMINATION: XR LUMBOSACRAL SPINE CLINICAL INFORMATION: Fell down, lumbar spine injury and pain COMPARISON: MRI of lumbar spine on 09/02/2014 TECHNIQUE: Three views of the lumbosacral spine. FINDINGS: The visualized lumbar vertebrae are intact with normal alignment. There is lumbarization of S1. Intervertebral disc space is mildly decreased at L5-S1. XR/XR lumbar spine 2-3V IMPRESSION: 1. Unchanged mild L5-S1 degenerative lumbar disc disease. 2. No fracture or dislocation of lumbar spine is seen.
--- NOTE | ~2023-08-29 | XR_ITS ---
EXAMINATION: XR CALCANEUS, RIGHT CLINICAL INFORMATION: Fell down, right heel injury and pain COMPARISON: None available. TECHNIQUE: Lateral and axial views of the right calcaneus were obtained. FINDINGS: BONES: Bony structures are intact. There is no focal bone destruction or periosteal reaction seen. JOINTS: Alignment of joints is normal. SOFT TISSUE: Soft tissue is normal. No radiopaque foreign body or abnormal air collection is seen. XR/XR calcaneus RT min 2V IMPRESSION: 1. Normal x-rays of right calcaneus. No fracture or dislocation or signs of osteomyelitis are found.
--- NOTE | ~2023-08-29 | CT_ITS ---
EXAMINATION: CT HEAD WITHOUT CONTRAST CLINICAL INFORMATION: Head trauma COMPARISON: None TECHNIQUE: Contiguous axial imaging was performed from the skull base to vertex without intravenous administration of contrast. This CT examination was performed using dose optimization techniques as appropriate, variously including the following: *Automated exposure control *Adjustment of mA and/or kV according to patient size (this includes techniques or standardized protocols for targeted exams where dose is matched to indication/reason for exam; i.e. extremities or head) *Use of iterative reconstruction technique DLP: 705.07 mGy-cm FINDINGS: There is no evidence of acute intracranial hemorrhage or territorial infarction. Chronic white matter small vessel ischemic changes. Cerebral atrophy with commensurate ventricular changes. No abnormal mass effect or midline shift is seen. [place] to white matter differentiation is well preserved. No extra-axial fluid collections are identified. The ventricles are normal in size. There is no abnormal attenuation within the brain parenchyma. The osseous structures and soft tissues are normal. The mastoid air cells and visualized portions of the paranasal sinuses are well aerated. CT/CT cervical spine wo IV con IMPRESSION: 1. No acute intracranial pathology. 2. Chronic white matter small vessel ischemic changes. EXAMINATION: Noncontrast CT scan of the cervical spine. INDICATION: Trauma COMPARISON: None. TECHNIQUE: Helical, multidetector axial images were obtained from the occiput to the upper thorax. Coronal and sagittal reformats of the cervical spine were provided for interpretation. DLP: 336.05 mGy-cm FINDINGS: No acute fractures or dislocations of the cervical spine are seen. Straightening the normal cervical curvature. Multilevel degenerative changes. Anatomic alignment and positioning of the vertebral bodies and posterior elements is noted. The atlantoaxial joint and craniovertebral articulations are normal without evidence of subluxation. There is no prevertebral soft tissue swelling. The thyroid gland and visualized portions of the lung apices and mediastinum are unremarkable. IMPRESSION: 1. No acute visible fracture or dislocation. 2. Straightening the normal cervical curvature. 3. Multilevel degenerative changes.
--- NOTE | ~2023-08-29 | XR_ITS ---
EXAMINATION: XR HUMERUS, LEFT CLINICAL INFORMATION: Fell down, left arm injury and pain COMPARISON: None available. TECHNIQUE: AP and lateral views of the left humerus. FINDINGS: BONES: Bony structures are intact. There is no focal bone destruction or periosteal reaction seen. JOINTS: Alignment of joints is normal. SOFT TISSUE: Soft tissue is normal. No radiopaque foreign body or abnormal air collection is seen. XR/XR humerus LT IMPRESSION: 1. Normal x-rays of left humerus. No fracture or dislocation or signs of osteomyelitis are found.
--- NOTE | ~2023-08-29 | XR_ITS ---
EXAMINATION: XR CHEST CLINICAL INFORMATION: Fell down, chest injury COMPARISON: Chest x-ray on 05/30/2022 TECHNIQUE: Frontal view of the chest was obtained. FINDINGS: vascularity. LUNGS: Lungs are clear. No pneumothorax is seen. BONES: Bony skeleton is intact. XR/XR chest 1V IMPRESSION: Unchanged Normal chest x-ray.
--- NOTE | 2023-08-29 10:48 | ECG_ITS ---
Test Reason : FALL Blood Pressure : / mmHG Vent. Rate : 060 BPM Atrial Rate : 060 BPM P-R Int : 200 ms QRS Dur : 100 ms QT Int : 436 ms P-R-T Axes : -03 -07 -11 degrees QTc Int : 436 ms Normal sinus rhythm Cannot rule out Anterior infarct (cited on or before 06-DEC-2018) ST & T wave abnormality, consider lateral ischemia Abnormal ECG When compared with ECG of 06-DEC-2018 13:39, Inverted T waves have replaced nonspecific T wave abnormality in Lateral leads Referred By: Tammie Toledo Electronically Signed By:MAXWELL GÓMEZ MD
--- NOTE | 2023-08-29 10:53 | ED_ITS ---
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 No confusion upon waking. He has pain in R heel, L upper arm and back of head. No vomiting. He notes he had LOC for 2 minutes. 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) Duration of episode: 2 -: minutes(s) Prodromal symptoms: other (reports blurred vision) Witnessed: No Context: other (showering) Injuries sustained associated with event: head, back, LUE and RLE Current symptoms: none Treatments prior to arrival: none Related Data Home Medications ?Medication ?Instructions ?Recorded ?Confirmed amitriptyline 25 mg tablet 25 mg PO DAILY 01/28/20 12/20/22 furosemide 20 mg tablet (Lasix) 20 mg PO DAILY 01/28/20 12/20/22 sildenafil 100 mg tablet 100 mg PO DAILY PRN 01/28/20 12/20/22 albuterol sulfate 2.5 mg/3 mL 2.5 mg inhalation QID PRN Wheezing 06/11/20 12/20/22 (0.083 %) solution for nebulization aspirin 81 mg tablet,delayed 81 mg PO DAILY 06/11/20 12/20/22 release atorvastatin 80 mg tablet 80 mg PO DAILY 06/11/20 12/20/22 diclofenac sodium 1 % topical gel 1 g topical BID PRN 06/11/20 12/20/22 losartan 100 mg tablet 100 mg PO DAILY 06/11/20 12/20/22 multivitamin 1 tab PO DAILY 06/11/20 12/20/22 albuterol sulfate 90 mcg/actuation 2 puff inhalation Q4-6H PRN 11/13/20 12/20/22 aerosol inhaler (Ventolin HFA) Wheezing blood sugar diagnostic (FreeStarik #10 ea 06/15/21 12/20/22 Lite Strips) lancets 33 gauge (TRUEplus Lancets) #100 ea 06/15/21 12/20/22 metformin 500 mg tablet,extended 500 mg PO DAILY 06/15/21 12/20/22 release 24 hr pantoprazole 40 mg tablet,delayed 40 mg PO DAILY 06/15/21 12/20/22 release nitroglycerin 0.4 mg sublingual 0 mg sublingual 12/17/21 12/20/22 tablet metoprolol tartrate 25 mg tablet 37.5 mg PO DAILY 08/26/22 12/20/22 Previous Rx's ?Medication ?Instructions ?Recorded hydrocortisone acetate 25 mg 25 mg NV BID PRN hemorrhoid pain 11/21/22 rectal suppository (Anucort-HC) #24 ea tadalafil 5 mg tablet 5 mg PO DAILY sexual activity 90 12/20/22 days #90 tabs lidocaine 5 % topical patch 1 patch topical DAILY #30 ea 08/29/23 Allergies Allergy/AdvReac Type Severity Reaction Status Date / Time lisinopril [LISINOPRIL] Allergy Intermediate COUGH Verified 08/29/23 10:39 oxycodone [From PERCOCET] Allergy Intermediate VOMITING Verified 08/29/23 10:39 alprazolam [From XANAX] AdvReac Intermediate VOMITING Verified 08/29/23 10:39 gabapentin AdvReac Abdominal Verified 08/29/23 10:39 Pain Review of Systems 2 Review of Systems: Constitutional : No Fever, No Chills, No Fatigue ENT/Mouth : No sore throat, No Rhinorrhea Eyes: No Eye Pain, No Swelling, No Redness Cardiovascular : No Chest Pain, No SOB, No Dyspnea on Exertion Respiratory : No Cough, No Sputum Gastrointestinal : No Nausea, No Vomiting, No Diarrhea, No abdominal Pain Genitourinary : No Dysuria, No Urinary Frequency, No Hematuria, Musculoskeletal : pos joint pain, No Myalgias, No Joint Swelling, pos back pain Skin : No Skin Lesions, No rash Neuro : No Weakness, No Numbness, No Dizziness, positive Headache Psych : No Anxiety/Panic, No Depression All other systems reviewed and are negative PMFSH Past Medical History Attestation statement: The following information was validated with the patient. Source: old records reviewed Medical History Bleeding hemorrhoids Diabetes mellitus Arteriosclerosis Cancer Pulmonary nodule Non-ischemic cardiomyopathy CVA (cerebral vascular accident) Arthritis Asthma GERD (gastroesophageal reflux disease) Elevated cholesterol Diastolic dysfunction Erectile dysfunction Surgical History Hx of transurethral resection of prostate History of esophagogastroduodenoscopy (EGD) H/O colonoscopy Hx of cataract extraction History of ankle surgery History of surgical removal of skin lesion History of hemorrhoidectomy History of appendectomy Family History Family History Father Prostate cancer Mother Parkinson disease Social History Social History Household Members Other:: Daughter and grand child Alcohol intake: former Patient Tobacco Use Status: Former Tobacco user Smoked in Last 30 Days: No Use of substances other than those prescribed or required for medical reasons: No Advance Directives: No Advance Directives Information Provided: Yes Physical Exam 2 Vital Signs: Vital Signs: Last Vital Signs Temp 98.2 F 08/29/23 12:32 Pulse 62 08/29/23 12:32 Resp 20 08/29/23 12:32 BP 145/88 H 08/29/23 12:32 Pulse Ox 97 08/29/23 12:32 O2 Del Method Room Air 08/29/23 12:32 BMI result Body Mass Index 25.7 Appearance: Alert. Oriented X3. No acute distress. Eyes: Pupils equal, round and reactive to light. ENT: Pharynx normal. no hematoma or lacerations noted Neck: Normal inspection. Neck supple. collar in place no midline step offs noted CVS: Normal heart rate and rhythm. Pulses normal. Chest: no rib ttp Respiratory: No respiratory distress. Breath sounds normal. Abdomen: Soft and nontender. Back: lower lumbar ttp no step off noted Skin: Skin warm and dry. Normal skin color. Normal skin turgor. Extremities: No lower extremity edema. R heel ttp, LUE ttp along prox humerus - all ext NV intact Neuro: Oriented X 3. No motor deficit. No sensory deficit. Medical Decision Making Medical Decision Making MDM Narrative: 78 yo male with PMH of CVA, DM, HTN, asthma on baby aspirin here with c/o showering then getting blurred vision and waking up on floor no preceding CP/SOB he denies risk factors for VTE he is only on baby aspirin at this time no seizure activity reported and no postictal event - he will need CT head/cspine for trauma, CXR, lumbar spine, L humerus and R heel. EKG and labs ordered as well. likely repeat troponin and if no heel fracture will attempt ortho VS Differential Diagnosis Differential Diagnoses: The differential diagnosis associated with the presentation includes syncope, trauma, anemia, dehydration, orthostatics, low prob ACS/VTE has no CP/SOB arrhythmia possible but had blurred vision so there was a prodrome Admission/Observation Consideration of admission/observation: Escalation of care including admission/observation considered repeat discussion with patient and yeast supervisor he states he was washing in the shower turned fast became dizzy and actually NEVER had an LOC he was awake the whole time this is very different from his HPI when asked the difference he states he was on the floor and awake and his eyes never closed. He never actually syncopized. He has had unchanged EKG, flat trop x 2, ddimer negative, imaging negative, ortho VS negative at this time stable for DC Lab Data [facility] Lab Attestation statement: I reviewed the patient's lab results. 08/29/23 10:57 08/29/23 10:57 Labs: Lab Results 08/29/23 08/29/23 Range/Units 10:57 14:34 WBC 8.2 (4.8-10.8) X10*3/uL RBC 4.70 (4.60-5.80) X10*6/uL Hgb 15.3 (14.0-18.0) g/dl Hct 45.4 (42.0-52.0) % MCV 96.6 (80.0-98.0) fL MCH 32.6 (27.0-33.0) pg MCHC 33.7 (31.0-36.0) g/dl RDW 12.5 (11.0-16.0) % Plt Count 256 (160-400) X10*3/uL MPV 10.1 (9.4-12.4) fL Immature Gran % (Auto) 0.2 (0.0-0.4) % Neut % (Auto) 53.8 (45-73) % Lymph % (Auto) 37.0 (20-40) % [place] % (Auto) 7.5 (2-11) % Eos % (Auto) 1.1 (0-4) % Baso % (Auto) 0.4 (0-2) % Lymph # (Auto) 3.0 (1.2-4.9) X10*3/uL [place] # (Auto) 0.6 (0.1-1.2) X10*3/uL Eos # (Auto) 0.1 (0.0-0.4) X10*3/uL Baso # (Auto) 0.0 (0.0-0.2) X10*3/uL Abs Immat Gran (auto) 0.02 (0.00-0.03) X10*3/uL Absolute Neuts (auto) 4.4 (2.0-8.3) x10*3/uL Absolute Nucleated RBC 0.000 (0.0-0.012) X10*3/uL Nucleated RBC % (auto) 0.0 (0.0-0.2) /100WBC D-Dimer High Sensitivty 172 NG/ML Sodium 141 (135-145) mmol/L Potassium 4.6 (3.3-5.1) mmol/L Chloride 106 (96-108) mmol/L Carbon Dioxide 26 (22-29) mmol/L Anion Gap 14 (12-20) BUN 11 (9-16) mg/dL Creatinine 0.89 (0.5-1.4) mg/dL Estim Creat Clear Calc 64.9 Estimated GFR > 60 Random Glucose 120 H (60-115) mg/dL Calcium 9.7 (8.4-10.2) mg/dL Magnesium 2.0 (1.6-2.6) mg/dL Total Bilirubin 0.7 (0.0-1.0) mg/dL Direct Bilirubin 0.2 (0.0-0.5) mg/dL AST 23 (5-37) U/L ALT 24 (0-40) U/L Alkaline Phosphatase 90 (39-117) U/L Troponin I High Sens 9.1 9.7 (<3.5-35.0) ng/L Total Protein 7.0 (6.5-8.0) g/dL Albumin 4.1 (3.5-5.0) g/dL Lipase 23 (8-78) U/L Independent Interpretation I performed an independent interpretation of an: EKG, Plain X-Ray (no trauma or fractures) and CT Scan (no ICH or cervical spine fracture) Interpretation: Rate: 60 Rhythm: NSR [place]: left Normal P waves. Normal YVONNE. Normal QRS complex. ST T wave : t wave inversions V5-V6, no ANTHONY qTC:436 prior studies: t wave inversions evident on EKG pre test on stress test. The study has been interpreted contemporaneously by me. . Radiology Impression Discussion of test interpretation with radiology: I have reviewed the radiologist's reading. Independent Historian Clinical information obtained from an independent historian. History obtained from or confirmed by: EMS External Record Review External record reviewed: Inpatient record Discharge Plan Discharge Clinical Impression: Falls, Acute strain of neck muscle, Contusion of heel, Head injury Patient Disposition: Home, Self-Care Instructions: Cervical Strain (ED), Head Injury (ED), Foot Contusion (ED) Additional Instructions: return for any worsening symptoms, chest pain, trouble breathing, confusion, vomiting or any other concerns. follow up with your doctor take it slow getting up and moving around wait 1 min on edge of chair or bed before you get up Prescriptions: New lidocaine 5 % adhesive patch,medicated 1 patch topical DAILY Qty: 30 0RF Rx Instructions: leave on most painful area for up to 12 hrs No Action albuterol sulfate [Ventolin HFA] 90 mcg/actuation Hfa Aerosol Inhaler 2 puff INHALATION Q4-6H PRN (Reason: Wheezing) albuterol sulfate 2.5 mg /3 mL (0.083 %) solution for nebulization 2.5 mg inhalation QID PRN (Reason: Wheezing) atorvastatin 80 mg tablet 80 mg PO DAILY losartan 100 mg tablet 100 mg PO DAILY aspirin 81 mg tablet,delayed release (DR/EC) 81 mg PO DAILY multivitamin Tablet 1 tab PO DAILY diclofenac sodium 1 % gel 1 g topical BID PRN amitriptyline 25 mg tablet 25 mg PO DAILY sildenafil 100 mg tablet 100 mg PO DAILY PRN Rx Instructions: administer 30 minutes to 4 hours before activity furosemide [Lasix] 20 mg tablet 20 mg PO DAILY metformin 500 mg tablet extended release 24 hr 500 mg PO DAILY pantoprazole 40 mg tablet,delayed release (DR/EC) 40 mg PO DAILY (DME) lancets [TRUEplus Lancets] 33 gauge misc See Rx Instructions topical .MEDSUPPLY Qty: 100 Rx Instructions: As directed (DME) FreeStyle Lite Strips Strip See Rx Instructions Not Applicable BID Qty: 10 Rx Instructions: As directed nitroglycerin 0.4 mg tablet, sublingual 0 mg sublingual tadalafil 5 mg tablet 5 mg PO DAILY 90 Days Qty: 90 1RF Rx Instructions: BIN [id number] PCN [facility] Group [id number] metoprolol tartrate 25 mg tablet 37.5 mg PO DAILY hydrocortisone acetate [Anucort-HC] 25 mg suppository 25 mg NV BID PRN (Reason: hemorrhoid pain) Qty: 24 2RF Print Language: Czech
[2023-08-29 11:04] LABS: MANUAL DIFF FLAG NO
[2023-08-29 11:05] LABS: Basophils Percent Auto 0.4 % (0-2); Eosinophils Absolute Auto 0.1 X10*3/uL (0.0-0.4); Eosinophils Percent Auto 1.1 % (0-4); Hematocrit 45.4 % (42.0-52.0); Hemoglobin 15.3 g/dl (14.0-18.0); Imm Gran Abs Auto 0.02 X10*3/uL (0.00-0.03); Imm Gran Pct Auto 0.2 % (0.0-0.4); Mean Corpuscular HGB Conc 33.7 g/dl (31.0-36.0); Mean Corpuscular Hemoglobin 32.6 pg (27.0-33.0); Mean Corpuscular Volume 96.6 fL (80.0-98.0); Mean Platelet Volume 10.1 fL (9.4-12.4); Monocytes Absolute Auto 0.6 X10*3/uL (0.1-1.2); Monocytes Percent Auto 7.5 % (2-11); Neutrophils Absolute Auto 4.4 x10*3/uL (2.0-8.3); Neutrophils Percent Auto 53.8 % (45-73); Platelet Count 256 X10*3/uL (160-400); Red Cell Distribution Width 12.5 % (11.0-16.0); White Blood Count 8.2 X10*3/uL (4.8-10.8)
[2023-08-29 11:15] LABS: D Dimer High Sensitivity 172 NG/ML
[2023-08-29 11:24] LABS: Alanine Aminotransferase 24 U/L (0-40); Albumin Level 4.1 g/dL (3.5-5.0); Alkaline Phosphatase 90 U/L (39-117); Anion Gap 14 (12-20); Aspartate Amino Transferase 23 U/L (5-37); Bilirubin Direct 0.2 mg/dL (0.0-0.5); Bilirubin Total 0.7 mg/dL (0.0-1.0); Blood Urea Nitrogen 11 mg/dL (9-16); Calcium 9.7 mg/dL (8.4-10.2); Carbon Dioxide 26 mmol/L (22-29); Chloride 106 mmol/L (96-108); Creatinine Clr Calc Pharmacy 64.9; Estimated Glomerular Filt Rate > 60; Glucose Random 120 mg/dL (60-115); Lipase 23 U/L (8-78); Potassium 4.6 mmol/L (3.3-5.1); Sodium 141 mmol/L (135-145)
[2023-08-29 11:26] LABS: Troponin-I High Sensitivity 9.1 ng/L (<3.5-35.0)
[2023-08-29 15:00] LABS: Troponin-I High Sensitivity 9.7 ng/L (<3.5-35.0)
== END 2023-08-29 16:07 | disposition home or self-care (01) ==
PROVIDERS: Emergency Provider Emergency Medicine; PCP Internal Medicine
DX: S16.1XXA Strain of muscle, fascia and tendon at neck level, initial encounter (principal); S90.31XA Contusion of right foot, initial encounter; S09.90XA Unspecified injury of head, initial encounter; E11.9 Type 2 diabetes mellitus without complications; I10 Essential (primary) hypertension; J45.909 Unspecified asthma, uncomplicated; Z86.73 Personal history of transient ischemic attack (TIA), and cerebral infarction without residual deficits; Z79.82 Long term (current) use of aspirin; W18.30XA Fall on same level, unspecified, initial encounter; Y93.E1 Activity, personal bathing and showering; Y92.9 Unspecified place or not applicable; Y99.9 Unspecified external cause status
CPT/HCPCS: 36415; 70450; 71045; 72100; 72125; 73060; 73650; 80048; 80076; 83690; 83735; 84484; 85025; 85379; 93005; 99284

== ENCOUNTER → 2023-08-29 10:48 | Outpatient (BNV) | payer OTHER, SELFPAY | PROVIDERS: Emergency Provider Emergency Medicine; PCP Internal Medicine; Visit Provider Internal Medicine Cardiovascular Disease | DX: R94.31 Abnormal electrocardiogram [ECG] [EKG] (principal); R53.1 Weakness | CPT/HCPCS: 93010 ==

== ENCOUNTER 2023-09-22 07:55 | Day surgery (SDC) | payer OTHER, SELFPAY ==
--- NOTE | 2023-09-21 09:45 | P.CONAN_ITS ---
HPI - Anesthesia Eval Consult details Narrative: 78yo M for Upper Endoscopy Syncope in the shower 08/2023. [facility] [place]. Follow[facility] Cardiology for cardiomyopathy, htn. Stable at 04/2023 office visit. [facility] Active Problems Active Problems: All Active Problems Erectile dysfunction due to arterial insufficiency (Acute) Fibromyalgia, primary (Acute) Weak urinary stream (Acute) BPH w urinary obs/LUTS (Acute) Bleeding hemorrhoids (Acute) Erectile dysfunction (Acute) Past Medical History Medical History Bleeding hemorrhoids Diabetes mellitus Arteriosclerosis Cancer Pulmonary nodule Non-ischemic cardiomyopathy CVA (cerebral vascular accident) Arthritis Asthma GERD (gastroesophageal reflux disease) Elevated cholesterol Diastolic dysfunction Erectile dysfunction Family History Family History Father Prostate cancer Mother Parkinson disease Family history of problems with anesthesia: No Surgical History Surgical History Hx of transurethral resection of prostate History of esophagogastroduodenoscopy (EGD) H/O colonoscopy Hx of cataract extraction History of ankle surgery History of surgical removal of skin lesion History of hemorrhoidectomy History of appendectomy History of Problems with Anesthesia: No Social History Social History Household Members Other:: Daughter and grand child Alcohol intake: former Patient Tobacco Use Status: Former Tobacco user Use of substances other than those prescribed or required for medical reasons: No Are you DNR?: No Advance Directives: No Advance Directives Information Provided: Yes Meds Allergies Allergy/AdvReac Type Severity Reaction Status Date / Time lisinopril [LISINOPRIL] Allergy Intermediate COUGH Verified 09/22/23 08:36 oxycodone [From PERCOCET] Allergy Intermediate VOMITING Verified 09/22/23 08:36 alprazolam [From XANAX] AdvReac Intermediate VOMITING Verified 09/22/23 08:36 gabapentin AdvReac Abdominal Verified 09/22/23 08:36 Pain Home Medications ?Medication ?Instructions ?Recorded ?Confirmed ?Last Taken ?Type amitriptyline 25 mg tablet 25 mg PO DAILY 01/28/20 09/22/23 09/21/23 History furosemide 20 mg tablet (Lasix) 20 mg PO DAILY 01/28/20 09/22/23 09/21/23 History sildenafil 100 mg tablet 100 mg PO DAILY PRN 01/28/20 12/20/22 Unknown History albuterol sulfate 2.5 mg/3 mL 2.5 mg inhalation QID PRN Wheezing 06/11/20 12/20/22 Unknown History (0.083 %) solution for nebulization aspirin 81 mg tablet,delayed 81 mg PO DAILY 06/11/20 09/22/23 09/21/23 History release atorvastatin 80 mg tablet 80 mg PO DAILY 06/11/20 09/22/23 09/21/23 History diclofenac sodium 1 % topical gel 1 g topical BID PRN 06/11/20 12/20/22 Unknown History losartan 100 mg tablet 100 mg PO DAILY 06/11/20 09/22/23 09/21/23 History multivitamin 1 tab PO DAILY 06/11/20 12/20/22 Unknown History albuterol sulfate 90 mcg/actuation 2 puff inhalation Q4-6H PRN 11/13/20 12/20/22 Unknown History aerosol inhaler (Ventolin HFA) Wheezing blood sugar diagnostic (FreeStyle #10 ea 06/15/21 12/20/22 Unknown History Lite Strips) lancets 33 gauge (TRUEplus Lancets) #100 ea 06/15/21 12/20/22 Unknown History metformin 500 mg tablet,extended 500 mg PO DAILY 06/15/21 09/22/23 09/21/23 History release 24 hr pantoprazole 40 mg tablet,delayed 40 mg PO DAILY 06/15/21 09/22/23 09/21/23 History release nitroglycerin 0.4 mg sublingual 0 mg sublingual 12/17/21 12/20/22 Unknown History tablet metoprolol tartrate 25 mg tablet 37.5 mg PO DAILY 08/26/22 09/22/23 09/22/23 History Exam Pertinent Lab Results Pertinent Lab Results: Laboratory Tests 08/29/23 10:57 WBC 8.2 Hgb 15.3 Hct 45.4 Plt Count 256 Sodium 141 Potassium 4.6 Chloride 106 Carbon Dioxide 26 BUN 11 Creatinine 0.89 Narrative Narrative: EKG 08/2023 Vent. Rate : 060 BPM Atrial Rate : 060 BPM P-R Int : 200 ms QRS Dur : 100 ms QT Int : 436 ms P-R-T Axes : -03 -07 -11 degrees QTc Int : 436 ms Normal sinus rhythm Cannot rule out Anterior infarct (cited on or before 06-DEC-2018) ST & T wave abnormality, consider lateral ischemia Abnormal ECG When compared with ECG of 06-DEC-2018 13:39, Inverted T waves have replaced nonspecific T wave abnormality in Lateral leads CT/CT head/brain wo IV con and C-spine 08/2023 IMPRESSION: 1. No acute intracranial pathology. 2. Chronic white matter small vessel ischemic changes. IMPRESSION: 1. No acute visible fracture or dislocation. 2. Straightening the normal cervical curvature. 3. Multilevel degenerative changes. ECHO 04/2023 1. LV size is nml 2. Mild conc LVH 3. Mild global hypokinesis of LV contractability 4. Overall LV systolic function is mild-moderately impaireed with a calculated LVEF of 40% 5. Grade 1 DD with an impaired relaxation filling pattern. 6. No evidence of pulmo htn 7. Inferior vena cava is nml 8. No significant changes c/w 2022 Assessment and Plan Assessment Anesthesia Assessment: Chart Reviewed Final Anesthetic Review Family History of Problems with Anesthesia: No History of Problems with Anesthesia: No
[2023-09-22 08:04] VITALS: BMI 25.1
[2023-09-22 08:26] VITALS: BP 155/99; PULSE 70; RESP 16; TEMP 35.7; O2SAT 95
[2023-09-22] MEDS: Lactated Ringers 1,000 ML 100 ML IVCONT (08:28)
[2023-09-22 08:34] LABS: Glucose, Whole Blood 106 mg/dL (60-115)
--- NOTE | 2023-09-22 08:37 | HO.ANESPROP2 ---
[facility] Active Problems Active Problems: All Active Problems Erectile dysfunction due to arterial insufficiency (Acute) Fibromyalgia, primary (Acute) Weak urinary stream (Acute) BPH w urinary obs/LUTS (Acute) Bleeding hemorrhoids (Acute) Erectile dysfunction (Acute) Past Medical History Medical History Bleeding hemorrhoids Diabetes mellitus Arteriosclerosis Cancer Pulmonary nodule Non-ischemic cardiomyopathy CVA (cerebral vascular accident) Arthritis Asthma GERD (gastroesophageal reflux disease) Elevated cholesterol Diastolic dysfunction Erectile dysfunction Functional capacity: independent ambulation Family History Family History Father Prostate cancer Mother Parkinson disease Family history of problems with anesthesia: No Surgical History Surgical History Hx of transurethral resection of prostate History of esophagogastroduodenoscopy (EGD) H/O colonoscopy Hx of cataract extraction History of ankle surgery History of surgical removal of skin lesion History of hemorrhoidectomy History of appendectomy History of Problems with Anesthesia: No Social History Social History Household Members Other:: Daughter and grand child Alcohol intake: former Patient Tobacco Use Status: Former Tobacco user Use of substances other than those prescribed or required for medical reasons: No Are you DNR?: No Advance Directives: No Advance Directives Information Provided: Yes Meds Allergies Allergy/AdvReac Type Severity Reaction Status Date / Time lisinopril [LISINOPRIL] Allergy Intermediate COUGH Verified 09/22/23 08:36 oxycodone [From PERCOCET] Allergy Intermediate VOMITING Verified 09/22/23 08:36 alprazolam [From XANAX] AdvReac Intermediate VOMITING Verified 09/22/23 08:36 gabapentin AdvReac Abdominal Verified 09/22/23 08:36 Pain Active Medications: Current Medications Albuterol Sulfate (Albuterol Sulfate (0.083%) 2.5 Mg/3 Ml Vial.Neb) 2.5 mg INHALE ONCE PRN PRN Reason: Shortness of Breath/Wheezing Lactated Ringer's (Lr) 1,000 mls @ 100 mls/hr IVCONT .Q10H KATE Last Admin: 09/22/23 08:28 Dose: 100 mls/hr Home Medications ?Medication ?Instructions ?Recorded ?Confirmed ?Last Taken ?Type amitriptyline 25 mg tablet 25 mg PO DAILY 01/28/20 09/22/23 09/21/23 History furosemide 20 mg tablet (Lasix) 20 mg PO DAILY 01/28/20 09/22/23 09/21/23 History sildenafil 100 mg tablet 100 mg PO DAILY PRN 01/28/20 12/20/22 Unknown History albuterol sulfate 2.5 mg/3 mL 2.5 mg inhalation QID PRN Wheezing 06/11/20 12/20/22 Unknown History (0.083 %) solution for nebulization aspirin 81 mg tablet,delayed 81 mg PO DAILY 06/11/20 12/20/22 Unknown History release atorvastatin 80 mg tablet 80 mg PO DAILY 06/11/20 09/22/23 09/21/23 History diclofenac sodium 1 % topical gel 1 g topical BID PRN 06/11/20 12/20/22 Unknown History losartan 100 mg tablet 100 mg PO DAILY 06/11/20 09/22/23 09/21/23 History multivitamin 1 tab PO DAILY 06/11/20 12/20/22 Unknown History albuterol sulfate 90 mcg/actuation 2 puff inhalation Q4-6H PRN 11/13/20 12/20/22 Unknown History aerosol inhaler (Ventolin HFA) Wheezing blood sugar diagnostic (FreeStyle #10 ea 06/15/21 12/20/22 Unknown History Lite Strips) lancets 33 gauge (TRUEplus Lancets) #100 ea 06/15/21 12/20/22 Unknown History metformin 500 mg tablet,extended 500 mg PO DAILY 06/15/21 09/22/23 09/21/23 History release 24 hr pantoprazole 40 mg tablet,delayed 40 mg PO DAILY 06/15/21 09/22/23 09/21/23 History release nitroglycerin 0.4 mg sublingual 0 mg sublingual 12/17/21 12/20/22 Unknown History tablet metoprolol tartrate 25 mg tablet 37.5 mg PO DAILY 08/26/22 09/22/23 09/22/23 History Exam Height,Weight and Vital Signs: Height 5 ft 7 in Weight 72.575 kg Last Vital Signs Temp 96.2 F L 09/22/23 08:26 Pulse 70 09/22/23 08:26 Resp 16 09/22/23 08:26 BP 155/99 H 09/22/23 08:26 Pulse Ox 95 09/22/23 08:26 O2 Del Method Room Air 09/22/23 08:26 Pertinent Lab Results Pertinent Lab Results: Laboratory Tests 09/22/23 08:29 POC Glucose 106 Airway Mallampati Class: II TM Dist: >3cm Neck ROM: Full Partial: Upper Heart: RRR Lungs: CTA Assessment and Plan Assessment Anesthesia Assessment: Anesthesia Plan Discussed Final Anesthetic Review Family History of Problems with Anesthesia: No History of Problems with Anesthesia: No NPO: Yes ASA Class: II Final Preanesthetic Review: Meds/Allgs Chart Reviewed, Consent Obtained/Reviewed and Anes Risks/Benef Reviewed Patient Risk: Low Procedure Risk: Low Anesthetic Plan Anesthetic Plan: MAC: Disposition: Standard PACU
--- NOTE | 2023-09-22 08:52 | P.HPSUR_ITS ---
Pre-Procedural Eval Section A - 24 Hr Update-Section A only Date of Service: 09/22/23 Section B - Complete if H&P > 30 days Chief Complaint: Peptic ulcer, site unspecified, unspecified as acu Details of Present Illness: see H&P no changes Relevant Family History (Specify if Yes): No Relevant Social History: None Present Medications: see Short Stay Collaborative assessment Medical History: No relevant PMH History of Previous Operations: Relevant previous surgery/procedure and date(s) Allergies: Allergies Allergy/AdvReac Type Severity Reaction Status Date / Time lisinopril [LISINOPRIL] Allergy Intermediate COUGH Verified 09/22/23 08:36 oxycodone [From PERCOCET] Allergy Intermediate VOMITING Verified 09/22/23 08:36 alprazolam [From XANAX] AdvReac Intermediate VOMITING Verified 09/22/23 08:36 gabapentin AdvReac Abdominal Verified 09/22/23 08:36 Pain Review of Systems Sugical H&P ROS: Negative: Constitution, Cardiovascular, Respiratory, Neurological, Psychiatric, Hem-Onc, Allergic/Immunologic, Gastrointestinal, Ge nitourinary, Musculoskeletal, Integumentary, Endocrine and Eyes/Ears/Nose/Throat Exam Surgical H&P Exam: Normal: HEENT, Normal: Heart, Normal: Lungs, Normal: Extremities, Normal: Abdomen, Normal: Skin and Normal: Neurological Plan Diagnosis/Plan: Unchanged I have reviewed the history and physical and performed a pertinent physical examination on my patient. No changes have occurred unless specified. Time Spent With Patient Time: Total time managing care of this patient today ____ minutes.
--- NOTE | 2023-09-22 08:58 | P.CONAN_ITS ---
[facility] [place] Active Problems Active Problems: All Active Problems Erectile dysfunction due to arterial insufficiency (Acute) Fibromyalgia, primary (Acute) Weak urinary stream (Acute) BPH w urinary obs/LUTS (Acute) Bleeding hemorrhoids (Acute) Erectile dysfunction (Acute) Past Medical History Medical History Bleeding hemorrhoids Diabetes mellitus Arteriosclerosis Cancer Pulmonary nodule Non-ischemic cardiomyopathy CVA (cerebral vascular accident) Arthritis Asthma GERD (gastroesophageal reflux disease) Elevated cholesterol Diastolic dysfunction Erectile dysfunction Functional capacity: independent ambulation Family History Family History Father Prostate cancer Mother Parkinson disease Family history of problems with anesthesia: No Surgical History Surgical History Hx of transurethral resection of prostate History of esophagogastroduodenoscopy (EGD) H/O colonoscopy Hx of cataract extraction History of ankle surgery History of surgical removal of skin lesion History of hemorrhoidectomy History of appendectomy History of Problems with Anesthesia: No Social History Social History Household Members Other:: Daughter and grand child Alcohol intake: former Patient Tobacco Use Status: Former Tobacco user Use of substances other than those prescribed or required for medical reasons: No Are you DNR?: No Advance Directives: No Advance Directives Information Provided: Yes Meds Allergies Allergy/AdvReac Type Severity Reaction Status Date / Time lisinopril [LISINOPRIL] Allergy Intermediate COUGH Verified 09/22/23 08:36 oxycodone [From PERCOCET] Allergy Intermediate VOMITING Verified 09/22/23 08:36 alprazolam [From XANAX] AdvReac Intermediate VOMITING Verified 09/22/23 08:36 gabapentin AdvReac Abdominal Verified 09/22/23 08:36 Pain Active Medications: Current Medications Albuterol Sulfate (Albuterol Sulfate (0.083%) 2.5 Mg/3 Ml Vial.Neb) 2.5 mg INHALE ONCE PRN PRN Reason: Shortness of Breath/Wheezing Lactated Ringer's (Lr) 1,000 mls @ 100 mls/hr IVCONT .Q10H KATE Last Admin: 09/22/23 08:28 Dose: 100 mls/hr Home Medications ?Medication ?Instructions ?Recorded ?Confirmed ?Last Taken ?Type amitriptyline 25 mg tablet 25 mg PO DAILY 01/28/20 09/22/23 09/21/23 History furosemide 20 mg tablet (Lasix) 20 mg PO DAILY 01/28/20 09/22/23 09/21/23 History sildenafil 100 mg tablet 100 mg PO DAILY PRN 01/28/20 12/20/22 Unknown History albuterol sulfate 2.5 mg/3 mL 2.5 mg inhalation QID PRN Wheezing 06/11/20 12/20/22 Unknown History (0.083 %) solution for nebulization aspirin 81 mg tablet,delayed 81 mg PO DAILY 06/11/20 09/22/23 09/21/23 History release atorvastatin 80 mg tablet 80 mg PO DAILY 06/11/20 09/22/23 09/21/23 History diclofenac sodium 1 % topical gel 1 g topical BID PRN 06/11/20 12/20/22 Unknown History losartan 100 mg tablet 100 mg PO DAILY 06/11/20 09/22/23 09/21/23 History multivitamin 1 tab PO DAILY 06/11/20 12/20/22 Unknown History albuterol sulfate 90 mcg/actuation 2 puff inhalation Q4-6H PRN 11/13/20 12/20/22 Unknown History aerosol inhaler (Ventolin HFA) Wheezing blood sugar diagnostic (FreeStyle #10 ea 06/15/21 12/20/22 Unknown History Lite Strips) lancets 33 gauge (TRUEplus Lancets) #100 ea 06/15/21 12/20/22 Unknown History metformin 500 mg tablet,extended 500 mg PO DAILY 06/15/21 09/22/23 09/21/23 History release 24 hr pantoprazole 40 mg tablet,delayed 40 mg PO DAILY 06/15/21 09/22/23 09/21/23 History release nitroglycerin 0.4 mg sublingual 0 mg sublingual 12/17/21 12/20/22 Unknown History tablet metoprolol tartrate 25 mg tablet 37.5 mg PO DAILY 08/26/22 09/22/23 09/22/23 History Exam Height,Weight and Vital Signs: Height 5 ft 7 in Weight 72.575 kg Last Vital Signs Temp 96.2 F L 09/22/23 08:26 Pulse 70 09/22/23 08:26 Resp 16 09/22/23 08:26 BP 155/99 H 09/22/23 08:26 Pulse Ox 95 09/22/23 08:26 O2 Del Method Room Air 09/22/23 08:26 Pertinent Lab Results Pertinent Lab Results: Laboratory Tests 09/22/23 08:29 POC Glucose 106 Airway Partial: Lower Assessment and Plan Final Anesthetic Review Family History of Problems with Anesthesia: No History of Problems with Anesthesia: No
[2023-09-22 09:18] VITALS: BP 110/69; PULSE 73; RESP 16; TEMP 36.6; O2SAT 89
[2023-09-22 09:23] VITALS: BP 123/75; PULSE 60; RESP 16; O2SAT 98
[2023-09-22 09:33] VITALS: BP 114/76; PULSE 55; RESP 16; O2SAT 94
--- NOTE | 2023-09-22 09:36 | OP_ITS ---
DATE OF SERVICE: 09/22/2023 SURGEON: Glenn Monroy MD INDICATIONS: Gastroesophageal reflux disease. PREOPERATIVE DIAGNOSIS: POSTOPERATIVE DIAGNOSIS: PROCEDURE PERFORMED: Upper endoscopy with biopsy. ESTIMATED BLOOD LOSS: COMPLICATIONS: ANESTHESIA: Monitored anesthesia care. ASSISTANTS: SPECIMENS: DESCRIPTION OF PROCEDURE: A history and physical were performed. The risks and benefits of the procedure were explained to the patient, and informed consent was obtained. The patient was placed in the left lateral decubitus position. The Olympus video gastroscope was introduced into the esophagus, stomach, and duodenum. Examination was performed, and the scope was removed. He tolerated the procedure well and was taken to recovery in stable condition. FINDINGS: Esophagus: The esophagus was normal. There was no esophagitis. There was a mild nonobstructive Schatzki ring at the EG junction. Biopsies were obtained from the EG junction. Stomach: The stomach was normal. There was slight nodularity to the antrum. Biopsies were obtained from the antrum. There was no ulceration or gastritis. Retroflexed examination of the stomach was normal. Duodenum, the bulb, and 2nd portion were normal. Random 2nd portion biopsies were obtained. IMPRESSION: Gastroesophageal reflux disease. RECOMMENDATIONS: 1. Follow up the biopsy results. 2. Consider followup examination including CT scanning if symptoms persist. 3. Begin using [id number] simethicone with meals for complaints of gas and bloating. MD MATTIE Soni/YESENIA / [phone]
[2023-09-22 09:48] VITALS: BP 126/76; PULSE 52; RESP 16; O2SAT 97
[2023-09-22 09:58] VITALS: BP 141/86; PULSE 52; RESP 16; TEMP 36.5; O2SAT 95
== END 2023-09-22 10:37 | disposition home or self-care (01) ==
PROVIDERS: PCP Internal Medicine; Visit Provider Internal Medicine Gastroenterology
PROC: 0DJ08ZZ Inspection of Upper Intestinal Tract, Via Natural or Artificial Opening Endoscopic (ICD-10-PCS; CPT 43235; principal; 2023-09-22 09:20)
DX: K21.9 Gastro-esophageal reflux disease without esophagitis (principal); K22.2 Esophageal obstruction; R14.0 Abdominal distension (gaseous); K58.0 Irritable bowel syndrome with diarrhea; I25.10 Atherosclerotic heart disease of native coronary artery without angina pectoris; I10 Essential (primary) hypertension; E78.5 Hyperlipidemia, unspecified; E11.9 Type 2 diabetes mellitus without complications; J45.909 Unspecified asthma, uncomplicated; Z86.73 Personal history of transient ischemic attack (TIA), and cerebral infarction without residual deficits; Z86.010 Personal history of colon polyps; Z79.82 Long term (current) use of aspirin; Z79.84 Long term (current) use of oral hypoglycemic drugs; Z79.899 Other long term (current) drug therapy; Z88.8 Allergy status to other drugs, medicaments and biological substances; Z98.890 Other specified postprocedural states; Z87.891 Personal history of nicotine dependence
CPT/HCPCS: 43239; 82947; 88305; 88313; 88342; J2704

== ENCOUNTER 2023-11-14 12:27 | Emergency (ER) | payer OTHER, SELFPAY ==
[2023-11-14 12:40] VITALS: BP 92/51; PULSE 67; RESP 16; TEMP 36.5; O2SAT 97; BMI 23.5
--- NOTE | 2023-11-14 12:40 | ED_ITS ---
HPI - General Adult General Chief complaint: Abdominal Pain Stated complaint: Abd pain, issue w/ meds Time Seen by Provider: 11/14/23 21:32 Source: patient Mode of arrival: ambulatory Limitations: no limitations History of Present Illness ED Provider: Dr. Mina Moore HPI narrative: 78 yo male with PMH of CVA, DM, HTN, asthma on baby aspirin daily notes he has been feeling fine lately no CP/SOB who presents emergency department for evaluation of abdominal pain. The patient states he has been having abdominal pain for year and a half. He states that he has seen Dr. Monroy and was told that he had gastritis. Patient was taking pantoprazole and he told his GI doctor that it was not working and he was started on lansoprazole on 11/09/2023. He states that since starting this medication his pain is gotten worse. He points to his epigastric area and then runs his hand across his entire abdomen when asked to localize the pain. He states he has not been able to eat or drink secondary to his pain over the last 4 days. He also states he has not been able to sleep secondary to his pain. Patient denied nausea, vomiting, diarrhea, dark tarry stools or bloody stools. Related Data Home Medications ?Medication ?Instructions ?Recorded ?Confirmed amitriptyline 25 mg tablet 25 mg PO DAILY 01/28/20 09/22/23 furosemide 20 mg tablet (Lasix) 20 mg PO DAILY 01/28/20 09/22/23 sildenafil 100 mg tablet 100 mg PO DAILY PRN 01/28/20 12/20/22 albuterol sulfate 2.5 mg/3 mL 2.5 mg inhalation QID PRN Wheezing 06/11/20 12/20/22 (0.083 %) solution for nebulization aspirin 81 mg tablet,delayed 81 mg PO DAILY 06/11/20 09/22/23 release atorvastatin 80 mg tablet 80 mg PO DAILY 06/11/20 09/22/23 diclofenac sodium 1 % topical gel 1 g topical BID PRN 06/11/20 12/20/22 losartan 100 mg tablet 100 mg PO DAILY 06/11/20 09/22/23 multivitamin 1 tab PO DAILY 06/11/20 12/20/22 albuterol sulfate 90 mcg/actuation 2 puff inhalation Q4-6H PRN 11/13/20 12/20/22 aerosol inhaler (Ventolin HFA) Wheezing blood sugar diagnostic (FreeStyle #10 ea 06/15/21 12/20/22 Lite Strips) lancets 33 gauge (TRUEplus Lancets) #100 ea 06/15/21 12/20/22 metformin 500 mg tablet,extended 500 mg PO DAILY 06/15/21 09/22/23 release 24 hr pantoprazole 40 mg tablet,delayed 40 mg PO DAILY 06/15/21 09/22/23 release nitroglycerin 0.4 mg sublingual 0 mg sublingual 12/17/21 12/20/22 tablet metoprolol tartrate 25 mg tablet 37.5 mg PO DAILY 08/26/22 09/22/23 Previous Rx's ?Medication ?Instructions ?Recorded hydrocortisone acetate 25 mg 25 mg OK BID PRN hemorrhoid pain 11/21/22 rectal suppository (Anucort-HC) #24 ea tadalafil 5 mg tablet 5 mg PO DAILY sexual activity 90 12/20/22 days #90 tabs lidocaine 5 % topical patch 1 patch topical DAILY #30 ea 08/29/23 aluminum hydrox-magnesium carb 254 10 ml PO QID PRN dyspepsia #355 mL 11/14/23 mg-237.5 mg/5 mL oral suspension (Gaviscon Extra Strength) pantoprazole 40 mg tablet,delayed 40 mg PO DAILY #30 tabs 11/14/23 release Allergies Allergy/AdvReac Type Severity Reaction Status Date / Time lisinopril [LISINOPRIL] Allergy Intermediate COUGH Verified 11/14/23 12:46 oxycodone [From PERCOCET] Allergy Intermediate VOMITING Verified 11/14/23 12:46 alprazolam [From XANAX] AdvReac Intermediate VOMITING Verified 11/14/23 12:46 gabapentin AdvReac Abdominal Verified 11/14/23 12:46 Pain Review of Systems 2 Review of Systems: Yes all other systems are reviewed and are negative PMFSH Past Medical History Medical History Bleeding hemorrhoids Diabetes mellitus Arteriosclerosis Cancer Pulmonary nodule Non-ischemic cardiomyopathy CVA (cerebral vascular accident) Arthritis Asthma GERD (gastroesophageal reflux disease) Elevated cholesterol Diastolic dysfunction Erectile dysfunction Surgical History Hx of transurethral resection of prostate History of esophagogastroduodenoscopy (EGD) H/O colonoscopy Hx of cataract extraction History of ankle surgery History of surgical removal of skin lesion History of hemorrhoidectomy History of appendectomy Family History Family History Father Prostate cancer Mother Parkinson disease Social History Social History Household Members Other:: Daughter and grand child Alcohol intake: former Patient Tobacco Use Status: Former Tobacco user Advance Directives: No Advance Directives Information Provided: No Do you have a plan to hurt others: No Plan Physical Exam ED Vital Signs: Vital Signs - 24 hr 11/14/23 12:40 11/14/23 20:22 11/14/23 21:07 Temperature 97.7 F 98.6 F Pulse Rate 67 64 68 Respiratory Rate 16 17 Blood Pressure 92/51 L 146/84 H 142/86 H Pulse Oximetry 97 94 Oxygen Delivery Method Room Air Room Air 11/14/23 21:08 11/14/23 21:10 11/14/23 22:19 Temperature 98.2 F Pulse Rate 60 68 68 Respiratory Rate 18 Blood Pressure 140/79 H 139/83 139/83 Pulse Oximetry Oxygen Delivery Method BMI result Body Mass Index 23.5 Vital signs were normal Exam: General: Awake, alert in no distress Head: Normocephalic, atraumatic EENT: PERRL, Lids normal, sclera normal, conjunctiva normal, nose normal , ears normal, throat without erythema or exudates Neck: Supple, no adenopathy Lung: breath sounds symmetric, no wheezing, rales or rhonchi Chest: symmetric movement, nontender Heart: regular rate and rhythm, normal S1, S2 no murmurs or rubs Abdomen: soft, moderate epigastric tenderness, mild to moderate diffuse tenderness, nondistended, normal bowel sounds Back: no vertebral tenderness, no CVAT Extremities: no deformities, moves all extremities symmetrically Neuro: Awake, alert, oriented, normal speech, cranial nerves intact, moves all extremities symmetrically Psych: Pleasant, cooperative Course Course Course Narrative: RME, this is a rapid medical exam performed by Luis Torrez please refer to primary provider for complete H&P- 78 year old male with history of gastritis presents for evaluation of burning upper abdominal pain that radiates into his throat. He follows with Dr. Monroy. He had an upper endoscopy on 09/22/2023 with biopsy that was negative for dysplasia. Patient reports continued pain, he reports he is unable to sleep and he is losing 5 lb in the last few months due to the discomfort. He is on a PPI currently, lansoprazole 30 mg daily. Plan for labs. His BP is 92/51 in triage. Medications Administered Discontinued Medications Generic Name Dose Route Start Last Admin Trade Name Parkerq PRN Reason Stop Dose Admin Al Hydroxide/Mg Hydroxide 30 ml 11/14/23 21:52 11/14/23 22:06 Magnesium Hydrox/Alum Hydrox 30 Ml Oral.Susp PO 11/14/23 21:53 30 ml ONCE STA Administration Belladonna Alkaloids/Phenobarbital 10 ml 11/14/23 21:52 11/14/23 22:06 Phenobarb/Hyoscy/Atropine/Scop 10 Ml Elixir PO 11/14/23 21:53 10 ml ONCE ONE Administration Lidocaine HCl 10 ml 11/14/23 21:52 11/14/23 22:06 Lidocaine Hcl Viscous 2 % 15 Ml Solution PO 11/14/23 21:53 10 ml ONCE ONE Administration Medical Decision Making Medical Decision Making MDM Narrative: 78 yo male with PMH of CVA, DM, HTN, asthma on baby aspirin daily notes he has been feeling fine lately no CP/SOB who presents emergency department for evaluation of abdominal pain times 1.5 years, worse over the past 4 days, recently seen by GI and his pantoprazole was discontinued and he was started on lansoprazole on 11/09/2023. Patient's abdominal pain is gotten worse over the past 4 days where he is not able to eat, drink or sleep secondary to his discomfort. Review of systems otherwise unremarkable. Vital signs were normal. Exam did reveal moderate epigastric tenderness and mild to moderate diffuse abdominal tenderness Differential diagnosis: ?Includes but is not limited to pancreatitis, diverticulitis, gastritis, GERD, electrolyte abnormalities, anemia Following evaluation was ordered: CBC, CMP, lipase Patient was initially treated with the following: Magnesium 30 mL orally, viscous lidocaine 10 mL orally, 10 mL orally Course: My interpretation patient's laboratory evaluation was as follows: CBC was normal. Glucose elevated 122. LFTs were normal. Lipase was normal. Patient's presentation is consistent with his gastritis/GERD. The patient believes that his symptoms have gotten worse since discontinuing his pantoprazole and starting lansoprazole. Patient wants to go back on the pantoprazole therefore I told him to discontinue his new medication and I prescribed pantoprazole 40 mg once a day. Patient was also prescribed extra- strength Gaviscon 10 cc 4 times a day as needed for pain. Patient did get some improvement after getting in the above medications. Patient was given printed and verbal instructions and discharged home. Admission/Observation Consideration of admission/observation: Escalation of care including admission/observation considered Lab Data MDM Lab Attestation statement: I reviewed the patient's lab results. 11/14/23 12:56 11/14/23 12:56 Labs: Lab Results 11/14/23 Range/Units 12:56 WBC 7.6 (4.8-10.8) X10*3/uL RBC 4.90 (4.60-5.80) X10*6/uL Hgb 15.7 (14.0-18.0) g/dl Hct 46.6 (42.0-52.0) % MCV 95.1 (80.0-98.0) fL MCH 32.0 (27.0-33.0) pg MCHC 33.7 (31.0-36.0) g/dl RDW 12.7 (11.0-16.0) % Plt Count 276 (160-400) X10*3/uL MPV 9.9 (9.4-12.4) fL Immature Gran % (Auto) 0.3 (0.0-0.4) % Neut % (Auto) 59.9 (45-73) % Lymph % (Auto) 32.3 (20-40) % Atlantic % (Auto) 5.5 (2-11) % Eos % (Auto) 1.7 (0-4) % Baso % (Auto) 0.3 (0-2) % Lymph # (Auto) 2.5 (1.2-4.9) X10*3/uL Atlantic # (Auto) 0.4 (0.1-1.2) X10*3/uL Eos # (Auto) 0.1 (0.0-0.4) X10*3/uL Baso # (Auto) 0.0 (0.0-0.2) X10*3/uL Abs Immat Gran (auto) 0.02 (0.00-0.03) X10*3/uL Absolute Neuts (auto) 4.6 (2.0-8.3) x10*3/uL Absolute Nucleated RBC 0.000 (0.0-0.012) X10*3/uL Nucleated RBC % (auto) 0.0 (0.0-0.2) /100WBC Sodium 139 (135-145) mmol/L Potassium 4.0 (3.3-5.1) mmol/L Chloride 106 (96-108) mmol/L Carbon Dioxide 28 (22-29) mmol/L Anion Gap 9 L (12-20) BUN 10 (9-16) mg/dL Creatinine 0.87 (0.5-1.4) mg/dL Estim Creat Clear Calc 66.4 Estimated GFR > 60 Random Glucose 122 H (60-115) mg/dL Calcium 9.5 (8.4-10.2) mg/dL Total Bilirubin 0.6 (0.0-1.0) mg/dL AST 23 (5-37) U/L ALT 23 (0-40) U/L Alkaline Phosphatase 100 (39-117) U/L Total Protein 7.0 (6.5-8.0) g/dL Albumin 4.1 (3.5-5.0) g/dL Lipase 17 (8-78) U/L Independent Interpretation I performed an independent interpretation of an: EKG Interpretation: My interpretation patient's 12 EKG done at 12:45 hours is as follows: Sinus rhythm with a rate of 68, first-degree AV block with a OK interval 218 milliseconds, prolonged QRS of 100 milliseconds, normal QTC interval, no ST segment elevation, no ST segment depression, no significant T-wave abnormalities. External Record Review External record reviewed: Inpatient record Prescription Management I considered prescription management with: Other (H2 samy and-pantoprazole) Chronic Conditions Patient?s care impacted by: Other (Gastritis,) Discharge Plan Discharge Clinical Impression: Abdominal pain, Gastritis Patient Disposition: Home, Self-Care Instructions: Gastritis (ED) Additional Instructions: Your blood work was normal. Your symptoms are consistent with inflammation of your stomach (gastritis). Your doctor did start you on a new medication however you told me that this medication is not working in you felt that the pantoprazole was better. Therefore I want you to stop taking the lansoprazole and represcribed your pantoprazole 40 mg once a day. Take extra-strength Gaviscon 10 mL (2 tsp) 4 times a day as needed for abdominal pain. Follow-up with your doctor in 2 days. Please return to the emergency department if your symptoms get worse or if you develop any symptoms that are concerning to you. Prescriptions: New Gaviscon Extra Strength 254-237.5 mg/5 mL suspension 10 ml PO QID PRN (Reason: dyspepsia) Qty: 355 0RF pantoprazole 40 mg tablet,delayed release (DR/EC) 40 mg PO DAILY Qty: 30 0RF No Action albuterol sulfate [Ventolin HFA] 90 mcg/actuation Hfa Aerosol Inhaler 2 puff INHALATION Q4-6H PRN (Reason: Wheezing) lidocaine 5 % adhesive patch,medicated 1 patch topical DAILY Qty: 30 0RF Rx Instructions: leave on most painful area for up to 12 hrs albuterol sulfate 2.5 mg /3 mL (0.083 %) solution for nebulization 2.5 mg inhalation QID PRN (Reason: Wheezing) atorvastatin 80 mg tablet 80 mg PO DAILY losartan 100 mg tablet 100 mg PO DAILY aspirin 81 mg tablet,delayed release (DR/EC) 81 mg PO DAILY multivitamin Tablet 1 tab PO DAILY diclofenac sodium 1 % gel 1 g topical BID PRN amitriptyline 25 mg tablet 25 mg PO DAILY sildenafil 100 mg tablet 100 mg PO DAILY PRN Rx Instructions: administer 30 minutes to 4 hours before activity furosemide [Lasix] 20 mg tablet 20 mg PO DAILY metformin 500 mg tablet extended release 24 hr 500 mg PO DAILY pantoprazole 40 mg tablet,delayed release (DR/EC) 40 mg PO DAILY (DME) lancets [TRUEplus Lancets] 33 gauge misc See Rx Instructions topical .MEDSUPPLY Qty: 100 Rx Instructions: As directed (DME) FreeStyle Lite Strips Strip See Rx Instructions Not Applicable BID Qty: 10 Rx Instructions: As directed nitroglycerin 0.4 mg tablet, sublingual 0 mg sublingual tadalafil 5 mg tablet 5 mg PO DAILY 90 Days Qty: 90 1RF Rx Instructions: [facility] [id number] [facility] Group 33 metoprolol tartrate 25 mg tablet 37.5 mg PO DAILY hydrocortisone acetate [Anucort-HC] 25 mg suppository 25 mg OK BID PRN (Reason: hemorrhoid pain) Qty: 24 2RF Interventions: ED Discharge Assessment Last Done: 11/14/23 22:19 Discharge Date/Time: 11/14/23 22:20 Print Language: [place]
--- NOTE | 2023-11-14 12:42 | ECG_ITS ---
Test Reason : PAIN Blood Pressure : / mmHG Vent. Rate : 066 BPM Atrial Rate : 066 BPM P-R Int : 218 ms QRS Dur : 100 ms QT Int : 418 ms P-R-T Axes : -14 -19 143 degrees QTc Int : 438 ms Sinus rhythm with 1st degree A-V block ST & T wave abnormality, consider lateral ischemia Abnormal ECG When compared with ECG of 29-AUG-2023 11:38, No significant change was found Referred By: Chester Torrez Electronically Signed By:GABBY PANDA
[2023-11-14 13:00] LABS: Basophils Percent Auto 0.3 % (0-2); Eosinophils Absolute Auto 0.1 X10*3/uL (0.0-0.4); Eosinophils Percent Auto 1.7 % (0-4); Hematocrit 46.6 % (42.0-52.0); Hemoglobin 15.7 g/dl (14.0-18.0); Imm Gran Abs Auto 0.02 X10*3/uL (0.00-0.03); Imm Gran Pct Auto 0.3 % (0.0-0.4); Lymphocytes Absolute Auto 2.5 X10*3/uL (1.2-4.9); Lymphocytes Percent Auto 32.3 % (20-40); MANUAL DIFF FLAG NO; Mean Corpuscular HGB Conc 33.7 g/dl (31.0-36.0); Mean Corpuscular Volume 95.1 fL (80.0-98.0); Mean Platelet Volume 9.9 fL (9.4-12.4); Monocytes Absolute Auto 0.4 X10*3/uL (0.1-1.2); Monocytes Percent Auto 5.5 % (2-11); Neutrophils Absolute Auto 4.6 x10*3/uL (2.0-8.3); Neutrophils Percent Auto 59.9 % (45-73); Platelet Count 276 X10*3/uL (160-400); Red Cell Distribution Width 12.7 % (11.0-16.0); White Blood Count 7.6 X10*3/uL (4.8-10.8)
[2023-11-14 13:27] LABS: Alanine Aminotransferase 23 U/L (0-40); Albumin Level 4.1 g/dL (3.5-5.0); Alkaline Phosphatase 100 U/L (39-117); Anion Gap 9 (12-20); Aspartate Amino Transferase 23 U/L (5-37); Bilirubin Total 0.6 mg/dL (0.0-1.0); Blood Urea Nitrogen 10 mg/dL (9-16); Calcium 9.5 mg/dL (8.4-10.2); Carbon Dioxide 28 mmol/L (22-29); Chloride 106 mmol/L (96-108); Creatinine Clr Calc Pharmacy 66.4; Estimated Glomerular Filt Rate > 60; Glucose Random 122 mg/dL (60-115); Lipase 17 U/L (8-78); Sodium 139 mmol/L (135-145)
[2023-11-14 20:22] VITALS: BP 146/84; PULSE 64; RESP 17; TEMP 37; O2SAT 94
[2023-11-14 21:07] VITALS: BP 142/86; PULSE 68
[2023-11-14 21:08] VITALS: BP 140/79; PULSE 60
[2023-11-14 21:10] VITALS: BP 139/83; PULSE 68
[2023-11-14] MEDS: Lidocaine HCl Viscous 2 % 15 ML SOLUTION 10 ML PO (22:06)
[2023-11-14] MEDS: PHENobarb/Hyoscy/Atropine/Scop 10 ML ELIXIR PO (22:06)
[2023-11-14] MEDS: Magnesium Hydrox/Alum Hydrox 30 ML ORAL.SUSP PO (22:06)
[2023-11-14 22:19] VITALS: BP 139/83; PULSE 68; RESP 18; TEMP 36.8
--- OUTSIDE RECORDS SUMMARY | 2023-11-15 08:20 | XMS_ITS | Continuity of Care Document ---
Author Organization [facility] Address [address] [place] [id number] Care Team Providers Care Alliance Director Name Role Phone Clayton Chavez MD Primary Care Physi david Encounter [facility] Date(s): 11/27/20 - 03/17/21 [facility] [address] [place] [id number] Attending Physician: Domingo Mendoza MD Admitting Physician: Domingo Mendoza MD Referring Physician: Clayton Chavez MD Allergies, Adverse Reactions, Alerts Substance Reaction Severity Status lisinopril Unknown Active gabapentin Active Xanax Active Percocet Gabapentin Active oxyCODONE Active Medications amitriptyline 25 mg oral tablet Refills 0, Maintenance, 11/27/20 15:39:00 EDT, Partial fill upon patient request if the prescription is for a schedule II opioid drug. Start Date: 11/27/20 Status: Ordered aspirin 81 mg oral delayed release tablet 81 mg, 1, tablet, By Mouth, Daily, # 30 tablet, Refills 0, Maintenance, 02/28/20 6:30:00 EST, Partial fill upon patient request if the prescription is for a schedule II opioid drug. Start Date: 02/28/20 Status: Ordered atorvastatin 40 mg oral tablet 1 tablet = 40 mg, By Mouth, Daily, # 30 tablet, 0 Refills, Maintenance, 02/28/20 6:30:00 EST, Tablet, Partial fill upon patient request if the prescription is for a schedule II opioid drug. Start Date: 02/28/20 Status: Ordered losartan 100 mg oral tablet 1 tablet = 100 mg, By Mouth, Daily, # 30 tablet, 0 Refills, Maintenance, 02/28/20 6:29:00 EST, Tablet, Partial fill upon patient request if the prescription is for a schedule II opioid drug. Start Date: 02/28/20 Status: Ordered metoprolol tartrate 37.5 mg oral tablet 1 tablet = 37.5 mg, By Mouth, Daily, # 30 tablet, 0 Refills, Maintenance, 02/28/20 6:29:00 EST, Tablet, Partial fill upon patient request if the prescription is for a schedule II opioid drug. Start Date: 02/28/20 Status: Ordered Multivitamin Daily, 0 Refills, Maintenance, 02/28/20 6:30:00 EST, Partial fill upon patient request if the prescription is for a schedule II opioid drug. Start Date: 02/28/20 Status: Ordered pantoprazole 40 mg oral delayed release tablet 1 tablet = 40 mg, By Mouth, 2 times a day, # 60 tablet, 0 Refills, Maintenance, 11/27/20 15:40:00 EDT, CR Tablet Start Date: 11/27/20 Status: Ordered Tylenol Extra Strength 500 mg oral tablet 1 tablet = 500 mg, By Mouth, Every 4 hours, PRN as needed for pain, # 100 tablet, 0 Refills, Maintenance, 02/28/20 6:31:00 EST, Tablet, Partial fill upon patient request if the prescription is for a schedule II opioid drug. Start Date: 02/28/20 Status: Ordered
--- OUTSIDE RECORDS SUMMARY | 2023-11-15 08:20 | XMS_ITS | Continuity of Care Document ---
Author Organization [facility] Address [address] [place] [address]- Care Team Providers Care Algebra Tutor Name Role Phone Scott BLACKMAN, Clayton Holt Primary Care Physi david Encounter [facility] [place]CT R [id number] Date(s): 09/07/23 - 09/14/23 [facility] [address] [place] [address]- Attending Physician: Kerry Davis MD Admitting Physician: Kerry Davis MD Referring Physician: Clayton Chavez MD Allergies, [...] opioid drug. Start Date: 02/28/20 Status: Ordered Aspirin Enteric Coated 81 mg oral delayed release tablet 90 each, 0 Refill(s), TAKE 1 TABLET BY MOUTH EVERY DAY, 0 Refills, 09/07/23 10:38:00 EDT, Partial fill upon patient request if the prescription is for a schedule II opioid drug. Start Date: 09/07/23 Status: Ordered atorvastatin 40 mg oral tablet 1 tablet = 40 mg, By Mouth, Daily, # 30 tablet, 0 Refills, Maintenance, 02/28/20 6:30:00 EST, Tablet, Partial fill upon patient request if the prescription is for a schedule II opioid drug. Start Date: 02/28/20 Status: Ordered atorvastatin 80 mg oral tablet 90 each, 0 Refill(s), TAKE 1 TABLET BY MOUTH EVERY DAY, 0 Refills, 09/07/23 10:38:00 EDT, Partial fill upon patient request if the prescription is for a schedule II opioid drug. Start Date: 09/07/23 Status: Ordered Compression Stockings See Instructions, # 1 kit, Refills 0, Tot. Refills 0, Maintenance, surgical, knee length 20-30 mm Hg, 06/02/23 19:07:00 EST, Supply Start Date: 06/02/23 Status: Ordered Compression Stockings See Instructions, # 2 each, Refills 0, Tot. Refills 0, Maintenance, surgical, knee length 20-30 mm Hg, 06/01/23 9:30:00 EST, Supply Start Date: 06/01/23 Status: Ordered Daily Junior oral tablet 0 Refills, Maintenance, 11/30/21 13:17:00 EDT, Partial fill upon patient request if the prescription is for a schedule II opioid drug. Start Date: 11/30/21 Status: Ordered diclofenac 1% topical gel 100 Gm, 0 Refill(s), APPLY 2 GRAMS TO AFFECTED AREA(S) TWICE DAILY NEEDED, 0 Refills, 09/07/23 10:38:00 EDT, Partial fill upon patient request if the prescription is for a schedule II opioid drug. Start Date: 09/07/23 Status: Ordered fluocinonide 0.05% topical ointment 15 Gm, 0 Refill(s), APPLY TOPICALLY TO THE AFFECTED AREA(S) OF THE ARMS TWICE DAILY FOR 2 WEEKS, STOP FOR 1 WEEK, THEN REPEAT NEEDED, 0 Refills, 09/07/23 10:38:00 EDT, Partial fill upon patient request if the prescription is for a schedule II opioi... Start Date: 09/07/23 Status: Ordered lansoprazole 30 mg oral enteric coated capsule 60 each, 0 Refill(s), TAKE 1 CAPSULE BY MOUTH TWICE DAILY, 0 Refills, 09/07/23 10:38:00 EDT, Partial fill upon patient request if the prescription is for a schedule II opioid drug. Start Date: 09/07/23 Status: Ordered meclizine 25 mg oral tablet, chewable 1 Unknown, 0 Refill(s), 0 Refills, 09/07/23 10:38:00 EDT, Partial fill upon patient request if the prescription is for a schedule II opioid drug. Start Date: 09/07/23 Status: Ordered MetFORMIN (Eqv-Glucophage XR) 500 mg oral tablet, extended release 0 Refills, Maintenance, 11/30/21 13:16:00 EDT, Partial fill upon patient request if the prescription is for a schedule II opioid drug. Start Date: 11/30/21 Status: Ordered Metoprolol Succinate ER 25 mg oral tablet, extended release 0 Refills, Maintenance, 11/30/21 13:14:00 EDT, Partial fill upon patient request if the prescription is for a schedule II opioid drug. Start Date: 11/30/21 Status: Ordered Metoprolol Tartrate 25 mg oral tablet 45 each, 0 Refill(s), TAKE 1 AND 1/2 TABLETS BY MOUTH EVERY DAY, 0 Refills, 09/07/23 10:38:00 EDT, Partial fill upon patient request if the prescription is for a schedule II opioid drug. Start Date: 09/07/23 Status: Ordered metoprolol tartrate 37.5 mg oral [...] opioid drug. Start Date: 02/28/20 Status: Ordered nitroglycerin 0.4 mg sublingual tablet 0 Refills, Maintenance, 11/30/21 13:16:00 EDT, Partial fill upon patient request if the prescription is for a schedule II opioid drug. Start Date: 11/30/21 Status: Ordered pantoprazole 40 mg oral delayed release tablet 1 tablet = 40 mg, By Mouth, 2 times a day, # 60 tablet, 0 Refills, Maintenance, 11/27/20 15:40:00 EDT, CR Tablet Start Date: 11/27/20 Status: Ordered SUMAtriptan 50 mg oral tablet 10 each, 0 Refill(s), TAKE 1 TABLET BY MOUTH AT ONSET OF MIGRAINE. MAY REPEAT ONCE AFTER 2 HOURS IFNEEDED AT LEAST 2 HOURS BETWEEN DOSES, 0 Refills, 09/07/23 10:38:00 EDT, Partial fill upon patient request if the prescription is for a schedule II opi... Start Date: 09/07/23 Status: Ordered YONG stockings YONG stockings, See Instructions, # 2 each, Refills 0, Tot. Refills 0, Maintenance, wear daily knee high, 06/21/21 14:29:00 EDT, Supply Start Date: 06/21/21 Status: Ordered Timolol Maleate (Eqv-Timoptic) 0.5% ophthalmic solution 0 Refills, Maintenance, 11/30/21 13:17:00 EDT, Partial fill upon patient request if the prescription is for a schedule II opioid drug. Start Date: 11/30/21 Status: Ordered timolol maleate 0.5% ophthalmic solution 5 mL, 0 Refill(s), PLACE 1 DROP IN THE RIGHT EYE EVERY DAY IN THE MORNING, 0 Refills, 09/07/23 10:38:00 EDT, Partial fill upon patient request if the prescription is for a schedule II opioid drug. Start Date: 09/07/23 Status: Ordered Tylenol Extra Strength 500 mg oral tablet 1 tablet = 500 mg, By Mouth, Every 4 hours, PRN as needed for pain, # 100 tablet, 0 Refills, Maintenance, 02/28/20 6:31:00 EST, Tablet, Partial fill upon patient request if the prescription is for a schedule II opioid drug. Start Date: 02/28/20 Status: Ordered Vital Signs Most recent to oldest [Reference Range]: 1 Height 170 cm (09/07/23 10:39 AM) Weight 73.94 kg (09/07/23 10:39 AM) Oxygen Saturation [94-100 %] 97 % (09/07/23 10:39 AM) Pulse Rate [55-90 bpm] 72 bpm (09/07/23 10:39 AM) Body Mass Index [18.5-24.99 kg/m2] 25.58 kg/m2 *H* (09/07/23 10:39 AM) Blood Pressure [90-138/55-84 mm Hg] 118/ 78mm Hg (09/07/23 10:39 AM) Mode of Delivery (Oxygen) Room air (09/07/23 10:39 AM) Blood pressure sites Arm, right (09/07/23 10:39 AM) Patient Care team information Care Team Personnel Name: Scott BLACKMAN, Clayton Holt Position: [facility] Outreach Member Role: PCP Address: Address: [address] [place] [address]- Care Team Related Persons Name: VANESSA PADRON Address: [place] [address]
--- OUTSIDE RECORDS SUMMARY | 2023-11-15 08:20 | XMS_ITS | Continuity of Care Document ---
Author Organization [facility] Address [address] [place] [address]- Care Team Providers Care Manager Nc Name Role Phone Scott BLACKMAN, Claytno Holt Primary Care Physi david En[place] [facility] Date(s): 11/27/20 - 03/14/21 [facility] [address] [place] [id number] Attending Physician: Domingo Mendoza MD Admitting Physician: Domingo Mendoza MD Referring Physician: Domingo Mendoza MD Allergies, Adverse Reactions, Alerts Substance Reaction Severity Status lisinopril Unknown Active gabapentin Active Percocet Gabapentin Active oxyCODONE Active Xanax Active Medications amitriptyline 25 mg oral tablet [...]
--- OUTSIDE RECORDS SUMMARY | 2023-11-15 08:20 | XMS_ITS | Continuity of Care Document ---
Author Organization [facility] Address [address] [place] [address]- Care Team Providers Care Paver Layer Name Role Phone Scott BLACKMAN, Clayton Holt Primary Care Physi david Encounter [facility] [place] Date(s): 11/27/20 - 02/26/21 [facility] [address] [place] [id number] Attending Physician: Domingo Mendoza MD Admitting Physician: [...]
--- OUTSIDE RECORDS SUMMARY | 2023-11-15 08:20 | XMS_ITS | Continuity of Care Document ---
Author Organization [facility] Address [address] [place] [address]- Care Team Providers Care Quantitative Developer Name Role Phone Scott BLACKMAN, Clayton Holt Primary Care Physi david Encounter [facility] [place] Date(s): 09/02/22 - 10/02/22 [facility] [address] [place], [place] [address] Attending Physician: AdmKarl lynn Admitting Physician: Admtr, Ar8 Referring Physician: Admtr, Ar8 Allergies, Adverse Reactions, Alerts Substance Reaction Severity [...] opioid drug. Start Date: 02/28/20 Status: Ordered Daily Junior oral tablet 0 Refills, Maintenance, 11/30/21 13:17:00 EDT, Partial fill upon patient request if the prescription is for a schedule II opioid drug. Start Date: 11/30/21 Status: Ordered MetFORMIN (Eqv-Glucophage XR) 500 mg [...] opioid drug. Start Date: 11/30/21 Status: Ordered metoprolol tartrate 37.5 mg oral [...] CR Tablet Start Date: 11/27/20 Status: Ordered YONG stockings YONG stockings, See Instructions, # 2 each, Refills 0, Tot. Refills 0, Maintenance, wear daily knee high, 06/21/21 14:29:00 EDT, Supply Start Date: 06/21/21 Status: Ordered Timolol Maleate (Eqv-Timoptic) 0.5% ophthalmic solution 0 Refills, Maintenance, 11/30/21 13:17:00 EDT, Partial fill upon patient request if the prescription is for a schedule II opioid drug. Start Date: 11/30/21 Status: Ordered Tylenol Extra Strength 500 mg oral tablet 1 tablet = 500 mg, By Mouth, Every 4 hours, PRN as needed for pain, # 100 tablet, 0 Refills, Maintenance, 02/28/20 6:31:00 EST, Tablet, Partial fill upon patient request if the prescription is for a schedule II opioid drug. Start Date: 02/28/20 Status: Ordered Patient Care team information Care Team Personnel Name: Scott BLACKMAN, Clayton Holt Position: S Outreach Member Role: PCP Address: Address: [address] [place] [address]- Care Team Related Persons Name: VANESSA PADRON Address: [place] [address]
--- OUTSIDE RECORDS SUMMARY | 2023-11-15 08:20 | XMS_ITS | Continuity of Care Document ---
Author Organization [facility] Address [address] [place] [address]- Care Team Providers Care Accounts Clerk Name Role Phone Clayton Chavez MD Primary Care Physi david Encounter [facility] Date(s): 11/27/20 - 12/04/20 [facility] [address] [place] [address] Attending Physician: Domingo Mendoza MD Admitting Physician: [...] oldest [Reference Range]: 1 Height 170 cm (11/27/20 3:37 PM) Weight 75.30 kg (11/27/20 3:37 PM) Oxygen Saturation [94-100 %] 98 % (11/27/20 3:37 PM) Pulse Rate [55-90 bpm] 66 bpm (11/27/20 3:37 PM) Body Mass Index [18.5-24.99] 26.06 *H* (11/27/20 3:37 PM) Blood Pressure [90-138/55-84 mm Hg] 136/ 80mm Hg (11/27/20 3:37 PM) Mode of Delivery (Oxygen) Room air (11/27/20 3:37 PM) Blood pressure sites Arm, left (11/27/20 3:37 PM) Weight Obtained Via Patient/family state d (11/27/20 3:37 PM)
--- OUTSIDE RECORDS SUMMARY | 2023-11-15 08:21 | XMS_ITS | Continuity of Care Document ---
Author Organization [facility] Address [address] [place] [address]- Care Team Providers Care Plate Slitter And Inspector Name Role Phone Scott BLACKMAN, Clayton Holt Primary Care Physi david Encounter [facility] [place] [place] ACCT R [id number] Date(s): 09/04/23 - 10/04/23 [facility] [address] [place] [address]- Attending Physician: Karl Ferguson Admitting Physician: Admtr Ar8 Referring Physician: Admtr, Ar8 Allergies, Adverse [...] S Outreach Member Role: PCP Address: Address: [address] [place] [address]- Care Team Related Persons Name: VANESSA PADRON Address: [address] [address]
--- OUTSIDE RECORDS SUMMARY | 2023-11-15 08:21 | XMS_ITS | Continuity of Care Document ---
Author Organization [facility] Address [address] [place] [address]- Care Team Providers Care Bulk Clerk Name Role Phone Scott BLACKMAN, Clayton Holt Primary Care Physi david Encounter [facility] [place] ACCT R [id number] Date(s): 09/02/22 - 09/09/22 [facility] [address] [place] [id number] Attending Physician: Domingo Mendoza MD Admitting Physician: Domingo Mendoza MD Allergies, Adverse Reactions, [...] oldest [Reference Range]: 1 Height 170 cm (09/02/22 1:54 PM) Weight 74 kg (09/02/22 1:54 PM) Oxygen Saturation [94-100 %] 96 % (09/02/22 1:54 PM) Pulse Rate [55-90 bpm] 73 bpm (09/02/22 1:54 PM) Body Mass Index [18.5-24.99 kg/m2] 25.61 kg/m2 *H* (09/02/22 1:54 PM) Blood Pressure [90-138/55-84 mm Hg] 130/ 80mm Hg (09/02/22 1:54 PM) Mode of Delivery (Oxygen) Room air (09/02/22 1:54 PM) Blood pressure sites Arm, left (09/02/22 1:54 PM) Weight Obtained Via Patient/family state d (09/02/22 1:54 PM) Note * Elbert Tobar: PERFORM, SIGN, VERIFY Event Display: Patient Education/Instruction Authored Date: [id number] [facility] *[facility] [address] Clinical Summary Name ROBB SCHMITT Age 77 Years 1945 PCP Scott BLACKMAN, Clayton Holt PCP Visit Date 09/02/2022 13:50:00 Additional Instructions: Scheduled Appointments?? Future Appointments ?No Future Appointments Scheduled Follow-Up Instructions ?? With: Address: When: Domingo Mendoza MD In 1 year Diagnosis Medications: Please continue your medications until treatment is completed or stopped by your provider. Discuss any questions related to medications with your provider. Medications to Continue with No Changes These medications were not printed or sent to your pharmacy Acetaminophen (Tylenol Extra Strength 500 mg oral tablet) 1 tab(s) Oral every 4 hours as needed as needed for pain. Next Dose: amiTRIPTYLINE (amitriptyline 25 mg oral tablet) Next Dose: Aspirin (aspirin 81 mg oral delayed release tablet) 1 tab(s) Oral Daily. Next Dose: Atorvastatin (atorvastatin 40 mg oral tablet) 1 tab(s) Oral Daily. Next Dose: Metformin (MetFORMIN (Eqv-Glucophage XR) 500 mg oral tablet, extended release) Next Dose: Metoprolol (Metoprolol Succinate ER 25 mg oral tablet, extended release) Next Dose: Metoprolol (metoprolol tartrate 37.5 mg oral tablet) 1 tab(s) Oral Daily. Next Dose: Miscellaneous Rx (YONG stockings) wear daily knee high. Refills: 0. Next Dose: Multivitamin Daily. Next Dose: Multivitamin (Daily Junior oral tablet) Next Dose: Nitroglycerin (nitroglycerin 0.4 mg sublingual tablet) Next Dose: Pantoprazole (pantoprazole 40 mg oral delayed release tablet) 1 tab(s) Oral twice a day. Next Dose: Timolol Ophthalmic (Timolol Maleate (Eqv-Timoptic) 0.5% ophthalmic solution) Next Dose: Allergy Info:?? oxyCODONE; Percocet; Xanax; gabapentin; lisinopril Medications Given This Visit Future Orders ?VL Ankle Brachial Indices? Order Date:09/02/22?- Complete by?09/02/22 Vital Signs Height 170 cm Weight 74 kg BMI 25.61 kg/m2 Blood Pressure 130 mm Hg/80 mm Hg Temperature Pulse Rate 73 bpm Respiratory Rate 02 Sat Mode of Delivery 96 %/Room air You can now view a summary of your hospital visit from the comfort of your home through a free online portal called [employer]. [employer] is a website that allows you to securely view your medical information including discharge summary, medications and follow-up visits. ??You can alsosend a secure electronic message to your doctor???s office to request appointments, renew medications or just ask a question. You can enroll at [email or web address] or register during your next office visit. Disclaimer:?? The information provided is of a general nature and is intended to be used in conjunction with the recommendations and advice of your health care practitioner. ??Every effort has been made to ensure that the information provided is accurate and complete at the time it is provided to you however, as your needs change, or, as new ??information becomes available, different or additional instructions may be required. If you have questions, please consult with your primary care provider or pharmacist, as appropriate. ??This information is not intended to serve as substitution for assessment and evaluation by a qualified health care provider. If you do not have a primary care provider, you may find a [facility] provider by calling [facility] [employer] at [phone]. For information about the plan of care including goals and instructions for your diagnosis, please see the patient education orders section of this document. Patient Education Materials?? The content of this educational material or handout may have been modified, supplemented, or adapted from its original content and format to support your individualized medical care. Patient Care team information Care Team Personnel Name: Scott BLACKMAN, Clayton Holt Position: [facility] Outreach Member Role: PCP Address: Address: [address] [place] [address]- [place] Care Team Related Persons Name: VANESSA PADRON Address: [address] [address]
--- OUTSIDE RECORDS SUMMARY | 2023-11-15 08:21 | XMS_ITS | Continuity of Care Document ---
Author Organization [facility] Address [address] [place] [address]- Care Team Providers Care Armature And Rotor Winder Name Role Phone Scott BLACKMAN, Clayton Holt Primary Care Physi david Encounter [facility] Date(s): 06/01/23 - 06/08/23 [facility] [address] [place] [id number] Attending Physician: Kerry Davis MD Admitting Physician: Kerry Davis MD Allergies, Adverse Reactions, Alerts Substance Reaction [...] opioid drug. Start Date: 02/28/20 Status: Ordered Compression Stockings See Instructions, # [...] oldest [Reference Range]: 1 Height 170 cm (06/01/23 9:04 AM) Weight 74 kg (06/01/23 9:04 AM) Oxygen Saturation [94-100 %] 97 % (06/01/23 9:04 AM) Pulse Rate [55-90 bpm] 84 bpm (06/01/23 9:04 AM) Body Mass Index [18.5-24.99 kg/m2] 25.61 kg/m2 *H* (06/01/23 9:04 AM) Blood Pressure [90-138/55-84 mm Hg] 110/ 78mm Hg (06/01/23 9:04 AM) Blood pressure sites Arm, left (06/01/23 9:04 AM) Note * Trice Agarwal: PERFORM, SIGN, VERIFY Event Display: Patient Education/Instruction Authored Date: [id number] [facility] *[facility] [address] Clinical Summary Name ROBB SCHMITT Age 78 Years 1945 PCP Scott BLACKMAN, Clayton Holt PCP Visit Date 06/01/2023 08:49:00 Additional Instructions: Scheduled Appointments?? Future Appointments ?No Future Appointments Scheduled Follow-Up Instructions ?? With: Address: When: Susan BLACKMAN, Kerry Rizvi In 3 months Comments: venous insufficiency duplex bilat Diagnosis Venous insufficiency (chronic) (peripheral) Medications: Please continue your medications until treatment is completed or stopped by your provider. Discuss any questions related to medications with your provider. New Medications - Durable Medical Equipment (Compression Stockings) surgical, knee length 20-30 mm Hg. Refills: 0. Next Dose: Medications to Continue with No Changes These [...] Medications Given This Visit Future Orders ?VL Venous Dup Scan Venous Insuf LE Bilat? Order Date:09/01/23?- Complete by?09/22/23 Vital Signs Height 170 cm Weight 74 kg BMI 25.61 kg/m2 Blood Pressure 110 mm Hg/78 mm Hg Temperature Pulse Rate 84 bpm Respiratory Rate 02 Sat Mode of Delivery 97 %/ You can now view a summary of your hospital visit from the comfort of your home through a free online portal called [employer]. [employer] is a website that allows you to securely view your medical information including discharge summary, medications and follow-up visits. ??You can alsosend a secure electronic message to your doctor???s office to request appointments, renew medications or just ask a question. You can enroll at [email or web address] or register during your next office visit. [...] primary care provider, you may find a [facility] provider by calling [employer] at [phone]. [facility], in keeping with [facility] guidance, no longer requires face masks for staff, patientsor visitors in most situations. Similar to time spent indoors at other locations, there is the chance that you were exposed to respiratory viruses during your time with us (such as flu or COVID-19).? If you develop symptoms concerning for a viral respiratory infection, please seek testing (and treatment if indicated) from your medical provider or home test kit. For information about the plan of care [...] Personnel Name: Scott BLACKMAN, Clayton Holt Position: [facility] Outreach Member Role: PCP Address: Address: [address] [place] [address]- Care Team Related Persons Name: VANESSA PADRON Address: [address] [address]
--- OUTSIDE RECORDS SUMMARY | 2023-11-15 08:21 | XMS_ITS | Continuity of Care Document ---
Author Organization [facility] Address [address] [place] [address]- Care Team Providers Care Electronic Warfare Technical Name Role Phone Scott BLACKMAN, Clayton Holt Primary Care Physi david Encounter [facility] Date(s): 01/04/22 - 02/03/22 [facility] [address] [place], [place] [address] Allergies, Adverse Reactions, Alerts Substance Reaction Severity [...] opioid drug. Start Date: 11/30/21 Status: Ordered ibuprofen 800 mg oral tablet Refills 0, Maintenance, 11/30/21 13:16:00 EDT, Partial fill upon patient request if the prescription is for a schedule II opioid drug. Start Date: 11/30/21 Status: Ordered losartan 100 mg oral tablet 1 tablet = 100 mg, By Mouth, Daily, # 30 tablet, 0 Refills, Maintenance, 02/28/20 6:29:00 EST, Tablet, Partial fill upon patient request if the prescription is for a schedule II opioid drug. Start Date: 02/28/20 Status: Ordered MetFORMIN (Eqv-Glucophage XR) 500 mg [...] opioid drug. Start Date: 02/28/20 Status: Ordered Myrbetriq 25 mg oral tablet, extended release 0 Refills, Maintenance, 11/30/21 13:16:00 EDT, Partial fill upon patient request if the prescription is for a schedule II opioid drug. Start Date: 11/30/21 Status: Ordered nitroglycerin 0.4 mg sublingual tablet [...] Personnel Name: Scott BLACKMAN, Clayton Holt Position: [facility] Outreach Member Role: PCP Address: Address: [address] [place] [address]- Care Team Related Persons Name: VANESSA PADRON Address: [address] [address]
--- OUTSIDE RECORDS SUMMARY | 2023-11-15 08:21 | XMS_ITS | Continuity of Care Document ---
Author Organization [facility] Address [address] [place] [address]- Care Team Providers Care Supervisor Pullet Farm Name Role Phone Scott BLACKMAN, Clayton Holt Primary Care Physi david Encounter [facility] Date(s): 11/17/20 - 12/23/20 [facility] [address] [place] [address] Attending Physician: Claudia Mccormick Admitting Physician: Claudia Mccormick Referring Physician: Claudia Mccormick Allergies, Adverse Reactions, Alerts Substance Reaction Severity [...]
--- OUTSIDE RECORDS SUMMARY | 2023-11-15 08:21 | XMS_ITS ---
Author Organization [facility] Address [address] [place] [address] Care Team Providers Care Refining Supervisor Name Role Phone Dawson Millard MD, Clayton Primary Care Provide r Glenn Thompson Jr Unavailable REASON FOR VISIT gerd PROBLEMS Problem Type ICD Code Onset Dates Problem Status W/U Status Risk SNOMED Code Notes Problem Gastro-esophagea l reflux disease without esophagitis (K21.9) Active confirmed Gastro-esophage al reflux disease without esophagitis (402037072) Encounters Encounter Location Date Provider Diagnosis [facility] Outpatient [address] [place] [phone] 09/22/2023 Glenn Monroy Jr Gastro-esophageal reflux disease without esophagitis K21.9 ASSESSMENTS Encounter Date Diagnosis Assessment Notes Treatment Notes Treatment Clinical Notes 09/22/2023 Gastro-esophageal reflux disease without esophagitis (ICD-10 - K21.9) PLAN OF TREATMENT No Information
--- OUTSIDE RECORDS SUMMARY | 2023-11-15 08:21 | XMS_ITS | Patient Health Record ---
Author Organization [facility] Address [address] [place] [address] Care Team Providers Care Career Consultant Name Role Phone Dawson Millard MD, Clayton Primary Care Provide Glenn Mary Jr Unavailable ALLERGIES Allergen (clinical drug ingredient) Drug/Non Drug Allergy documented on EMR Reaction Allergy Type Onset Date Status oxycodone Oxycodone Unknown Drug Allergy Active lisinopril Lisinopril Unknown Drug Allergy Activ e gabapentin Gabapentin Unknown Drug Allergy Activ e acetaminophen / oxycodone Percocet Unknown Drug Allergy Active zanac (uncoded) Unknown Allergy Acti ve RESULTS Component Value Reference Range Notes Glucose, Whole Blood Reviewed date:09/22/2023 03:04:56 PM Interpretation: Performing Lab:[address] [id number] Notes/Report: Glucose, Whole Blood 106 60-115 mg/dL METER # : [id number] Pathology Reviewed date:10/05/2023 11:07:51 AM Interpretation: Performing Lab:[address] [address] Notes/Report: REASON FOR REFERRAL No Information MEDICATIONS Medication SIG (Take, Route, Frequency, Duration) Notes Start Date End Date Status Ventolin HFA 108 (90 Base) MCG/ACT 1 puff as needed Inhalation every 4 hrs Active Myrbetriq 25 MG 1 tablet Orally Once a day for 30 day(s) Active traMADol HCl 50 MG as directed Orally Not-Taking Nitroglycerin 0.4 MG as directed Sublingual Active Meclizine HCl 25 MG 1 tablet as needed Orally Once a day for 30 day(s) Not-Taking Metoprolol Succinate 25 MG 1 capsule Orally Once a day for 30 day(s) Active Atorvastatin Calcium 80 MG 1 tablet Orally Once a day Put a hold on medication Active Aspir-81 81 MG 1 tablet Orally Once a day Active Albuterol Active Lansoprazole 30 MG 1 Orally Twice a day for 30 days 08/14/2023 Active metFORMIN HCl ER 500 MG 1 tablet with evening meal Orally Once a day Active Amitriptyline HCl 10 MG TAKE 1 TABLET BY MOUTH AT BEDTIME Diagnosis Unavailable Oral for 30 Active Non-Aspirin Pain Relief PRN (tylenol) Active Multivitamin Adults - as directed Orally Active IMMUNIZATIONS Vaccine Route Administration Date Status Comme nts Influenza Unknown 12/25/2017 Administered Influenza Unknown 12/26/2018 Administered Influenza Unknown 01/15/2020 Administered Influenza Unknown 11/25/2020 Administered Influenza Unknown 01/17/2023 Administered Influenza Unknown 04/13/2022 Refused SOCIAL HISTORY Sex Assigned At : Social History Observation Description Sex Assigned At Unknown PROBLEMS Problem Type ICD Code Onset Dates Problem Status W/U Status Risk SNOMED Code Notes Problem Colon cancer screening (Z12.11) Active confirmed 921336361 Problem Epigastric pain (R10.13) Active confirmed 75143574 Problem Gastro-esophageal reflux disease without esophagitis (K21.9) Active confirmed Gastro-esophag eal reflux disease without esophagitis (658909249) Problem Personal history of colonic polyps (Z86.010) Active confirmed 128384257 Problem Irritable bowel syndrome with diarrhea (K58.0) Active confirmed 277084044 Problem Generalized abdominal pain (R10.84) Active confirmed 414954645 Problem Gastroesophageal reflux disease without esophagitis (K21.9) Active confirmed 068018823 Problem History of colon polyps (Z86.010) Active confirmed History of polyp of colon (034854559) Problem Gastroesophageal reflux disease with esophagitis without hemorrhage (K21.00) Active confirmed 646336243 VITAL SIGNS Temperature 96.9 degrees Fahrenheit 08/14/2023 Blood pressure diastolic 00 mm Hg 08/14/2023 Height 67 in 08/14/2023 Blood pressure systolic 000 mm Hg 08/14/2023 Weight 162 lb 4 oz lbs 08/14/2023 BMI 25.41 kg/m2 08/14/2023 Encounters Encounter Location Date Provider Diagnosis [facility] Outpatient [address] [place] [phone] 09/22/2023 Glenn Monroy Jr Gastro-esophageal reflux disease without esophagitis K21.9 [facility] [address] [place] [address] 09/13/2023 Glenn Monroy Jr [facility] [address] [place] [address] 08/14/2023 Glenn Monroy Jr Gastroesophageal reflux disease without esophagitis K21.9 and Irritable bowel syndrome with diarrhea K58.0 [facility] [address] [place] [address] 03/17/2023 Glenn Monroy Jr Gastroesophageal reflux disease with esophagitis without hemorrhage K21.00 [facility] [address] [place] [address] 05/01/2023 Glenn Monroy Jr [facility] [address] [place] [address] 09/18/2023 Glenn Monroy Jr [facility] [address] [place] [address] 09/20/2023 Glenn Monroy Jr [facility] [address] [place] [address] 10/05/2023 Glenn Monroy Jr ASSESSMENTS Encounter Date Diagnosis Assessment Notes Treatment Notes Treatment Clinical Notes 09/22/2023 Gastro-esophageal reflux disease without esophagitis (ICD-10 - K21.9) 08/14/2023 Irritable bowel syndrome with diarrhea (ICD-10 - K58.0) 08/14/2023 Gastroesophageal ref lux disease without esophagitis (ICD-10 - K21.9) Endoscopy material was printed 03/17/2023 Gastroesophageal ref lux disease with esophagitis without hemorrhage (ICD-10 - K21.00) PLAN OF TREATMENT Pending Test Test Name Order Date XR GI SERIES 01/03/2019 Future Test Test Name Order Date UPPER GI ENDOSCOPY 10/29/2014 UPPER GI ENDOSCOPY 01/13/2016 COLONOSCOPY 01/13/2016 UPPER GI ENDOSCOPY 10/29/2020 COLONOSCOPY 10/29/2020 UPPER GI ENDOSCOPY 08/14/2023 Insurance Providers Payer Name Payer Address Payer Phone Subscriber Number Group Number Insured Name Patient Relationship to Insured Coverage Start Date Coverage End Date [facility] [address] Attn Claims CIPRIANO Julio [id number] ROBB PADRON Self - patient is the insured MEDICAL (GENERAL) HISTORY Medical History History ICD Code EGD 11/20/20, no Handley's esophagus or H . pylori. 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
--- OUTSIDE RECORDS SUMMARY | 2023-11-15 08:21 | XMS_ITS | Continuity of Care Document ---
Author Organization [facility] Address [address] [place] [address]- Care Team Providers Care Social Media Senior Associate Name Role Phone Scott BLACKMAN, Clayton Holt Primary Care Physi david Encounter [facility] Date(s): 06/16/21 - 07/16/21 [facility] [address] [place], [place] [address] Attending Physician: Karl Ferguson Admitting Physician: AdmtrKarl Referring Physician: Admtr, Ar8 Allergies, Adverse Reactions, [...] EDT, Supply Start Date: 06/21/21 Status: Ordered Tylenol Extra Strength 500 mg oral tablet 1 tablet = 500 mg, By Mouth, Every 4 hours, PRN as needed for pain, # 100 tablet, 0 Refills, Maintenance, 02/28/20 6:31:00 EST, Tablet, Partial fill upon patient request if the prescription is for a schedule II opioid drug. Start Date: 02/28/20 Status: Ordered
--- OUTSIDE RECORDS SUMMARY | 2023-11-15 08:21 | XMS_ITS | Continuity of Care Document ---
Author Organization [facility] Address [address] [place] [address]- Care Team Providers Care Revival Clerk Name Role Phone Scott BLACKMAN, Clayton Holt Primary Care Physi david Encounter [facility] Date(s): 11/30/21 - 12/07/21 [facility] [address] [place], [place] [address] Attending Physician: Domingo Mendoza MD [...] oldest [Reference Range]: 1 Height 170 cm (11/30/21 1:12 PM) Weight 74 kg (11/30/21 1:12 PM) Oxygen Saturation [94-100 %] 97 % (11/30/21 1:12 PM) Pulse Rate [55-90 bpm] 63 bpm (11/30/21 1:12 PM) Body Mass Index [18.5-24.99] 25.61 *H* (11/30/21 1:12 PM) Blood Pressure [90-138/55-84 mm Hg] 160/ 80mm Hg *H* (11/30/21 1:12 PM) Mode of Delivery (Oxygen) Room air (11/30/21 1:12 PM) Blood pressure sites Arm, left (11/30/21 1:12 PM) Weight Obtained Via Patient/family state d (11/30/21 1:12 PM) Care Team Personnel Name: Clayton Chavez MD Address: [address] [place] [address]
--- OUTSIDE RECORDS SUMMARY | 2023-11-15 08:21 | XMS_ITS | Continuity of Care Document ---
Author Organization [facility] Address [address] [place] [address]- Care Team Providers Care Director Of Field Service Name Role Phone Scott BLACKMAN, Clayton Holt Primary Care Physi david Encounter [facility] Date(s): 11/17/20 - 12/17/20 [facility] [address] [place] [address]- Allergies, Adverse Reactions, Alerts Substance Reaction Severity [...]
--- OUTSIDE RECORDS SUMMARY | 2023-11-15 08:21 | XMS_ITS | Continuity of Care Document ---
Author Organization [facility] Address [address] [place] [address]- Care Team Providers Care Vessel Engineer Name Role Phone Clayton Chavez MD Primary Care Physi david Encounter [facility] Date(s): 06/21/21 - 06/28/21 [facility] [address] [place] [id number] Attending Physician: Syeda Malone NP Admitting Physician: Syeda Malone NP Referring Physician: Clayton Chavez MD Allergies, Adverse [...]
--- OUTSIDE RECORDS SUMMARY | 2023-11-15 08:21 | XMS_ITS | Continuity of Care Document ---
Author Organization [facility] Address [address] [place] [address]- Care Team Providers Care Agent Name Role Phone Scott BLACKMAN, Clayton Holt Primary Care Physi david En[place] [facility] Date(s): 11/23/20 - 12/23/20 [facility] [address] [address]- Attending Physician: Karl Ferguson Admitting Physician: Karl Ferguson Referring Physician: AdmtrKarl Allergies, Adverse Reactions, Alerts Substance Reaction Severity [...]
--- OUTSIDE RECORDS SUMMARY | 2023-11-15 08:21 | XMS_ITS ---
Author Organization [facility] Address [address] [place] [address] Care Team Providers Care Under Seal Operator Name Role Phone Dawson Millard MD, Clayton Primary Care Provide r Glenn Thompson Jr Unavailable REASON FOR VISIT pathology Encounters Encounter Location Date Provider Diagnosis [facility] [address] [place] [address] 10/05/2023 Glenn Monroy Jr PLAN OF TREATMENT No Information
--- OUTSIDE RECORDS SUMMARY | 2023-11-15 08:21 | XMS_ITS ---
Author Organization [facility] Address [address] [place] [address] Care Team Providers Care Forklift Picker Name Role Phone Dawson Millard MD, Clayton Primary Care Provide r Glenn Thompson Jr Unavailable Encounters Encounter Location Date Provider Diagnosis [facility] [address] [place] [address] 09/20/2023 Glenn Monroy Jr PLAN OF TREATMENT No Information
--- OUTSIDE RECORDS SUMMARY | 2023-11-15 08:21 | XMS_ITS | Continuity of Care Document ---
Author Organization [facility] Address [address] [place] [address]- Care Team Providers Care Community Recreation Coordinator Name Role Phone Scott BLACKMAN, Clayton Holt Primary Care Physi david [place] [facility] Date(s): 03/03/22 - 04/02/[address] [address]- Attending Physician: Karl Ferguson Admitting Physician: AdmtrKarl [...] Personnel Name: Scott BLACKMAN, Clayton Holt Position: [facility] Outreach Member Role: PCP Address: Address: [address] [place] [address]- Care Team Related Persons Name: VANESSA PADRON Address: [address] [address]
--- OUTSIDE RECORDS SUMMARY | 2023-11-15 08:21 | XMS_ITS | Continuity of Care Document ---
Author Organization [facility] Address [address] [place] [address]- Care Team Providers Care Clerk Of Court Name Role Phone Scott BLACKMAN, Clayton Holt Primary Care Physi david En[place] [facility] Date(s): 09/07/23 - 10/07/23 [facility] [address] [place], [place] [address] Attending Physician: AdmKarl lynn Admitting Physician: Admtr, [...] Outreach Member Role: PCP Address: Address: [address] [place] [address]- Care Team Related Persons Name: VANESSA PADRON Address: [address] [address]
== END 2023-11-14 22:20 | disposition home or self-care (01) ==
PROVIDERS: Physician Assistant; Emergency Provider Emergency Medicine Emergency Medical Services; PCP Internal Medicine
DX: K29.70 Gastritis, unspecified, without bleeding (principal); R10.9 Unspecified abdominal pain; R07.89 Other chest pain; I44.0 Atrioventricular block, first degree; Z79.899 Other long term (current) drug therapy
CPT/HCPCS: 36415; 80053; 83690; 85025; 93005; 99283; 99284

== ENCOUNTER 2023-12-14 09:17 | Outpatient (REF) | payer OTHER, SELFPAY ==
[2023-12-14 12:13] LABS: Prostate Specific Antigen Scr 0.39 ng/mL (<0.05-4.0)
[2023-12-14 12:14] LABS: Cholesterol 162 mg/dL (<200); HDL Cholesterol 39 mg/dL (>40); LDL Cholesterol Calculated 105 mg/dL (<100); Triglycerides 93 mg/dL (<150)
[2023-12-14 12:27] LABS: Creatinine Urine 167.95 mg/dL; Microalbum/Creatinine Ratio Ur 4.7 ug/mg cr (<30)
== END 2023-12-14 09:18 | disposition home or self-care (01) ==
LOC: HO.HHCL 09:17
PROVIDERS: Visit Provider Internal Medicine
DX: Z00.00 Encounter for general adult medical examination without abnormal findings (principal); E78.00 Pure hypercholesterolemia, unspecified; E11.9 Type 2 diabetes mellitus without complications; Z12.5 Encounter for screening for malignant neoplasm of prostate
CPT/HCPCS: 36415; 80061; 82043; 82570; 84153

== ENCOUNTER 2023-12-21 09:23 | Outpatient (AMB) | payer OTHER, SELFPAY ==
--- OUTSIDE RECORDS SUMMARY | 2023-12-21 09:25 | XMS_ITS ---
Author Organization [facility] Address [address] [place] [address] Care Team Providers Care Mold Maintenance Technician Name Role Phone Dawson Millard MD, Clayton Primary Care Provide iker Monroy Jr, Glenn Unavailable REASON FOR VISIT Abdominal pain MEDICATIONS Medication SIG (Take, Route, Frequency, Duration) Notes Start Date End Date Status Pantoprazole Sodium 40 MG 1 tablet Orall y Once a day for 30 days 11/24/2023 Active Encounters Encounter Location Date Provider Diagnosis [facility] [address] [place] [address] 11/28/2023 Glenn Monroy Jr PLAN OF TREATMENT Medication Medication Name Sig Start Date Stop Date Notes Pantoprazole Sodium 40 MG 1 tablet Orall y Once a day for 30 days 11/24/2023
--- NOTE | 2023-12-21 09:26 | MHC.OFFVIS ---
Intake Visit Reasons: 1Y Follow Up-Med Review(Tadalafil) Intake Note: Patient is present for Telephone Med review Urology Med: Tadalafil Building Construction Superintendent Required: Yes Building Construction Superintendent Language: Clothes Separator Services: Building Construction Superintendent Present Information Interpreted: clinical only Allergies lisinopril [LISINOPRIL] Allergy (Intermediate, Verified 01/05/24 12:44) COUGH oxycodone [From PERCOCET] Allergy (Intermediate, Verified 01/05/24 12:44) VOMITING alprazolam [From XANAX] Adverse Reaction (Intermediate, Verified 01/05/24 12:44) VOMITING gabapentin Adverse Reaction (Verified 01/05/24 12:44) Abdominal Pain HPI Comments Details: Shelton is a pleasant male. He is a patient Dr. Osman. He is seen for the following urologic conditions - night lower urinary tract symptoms - erectile dysfunction Tamazight translation provided by qualified combat systems engineer Telemedicine Evaluation 15 min Consultation [employer] Jes[employer]s Video attempted Feels current urinary performance is stable Had improved his diabetic control Continue daily tadalafil for bladder stability Lower Urinary tract symptoms Previously on tamsulosin and Myrbetriq Prior therapy laser prostatectomy PSA - 06/14 0.4 He has been on daily tadalafil for bladder stability [facility] Medical History Bleeding hemorrhoids Diabetes mellitus Arteriosclerosis Cancer Pulmonary nodule Non-ischemic cardiomyopathy CVA (cerebral vascular accident) Arthritis Asthma GERD (gastroesophageal reflux disease) Elevated cholesterol Diastolic dysfunction Erectile dysfunction Surgical History Hx of transurethral resection of prostate History of esophagogastroduodenoscopy (EGD) H/O colonoscopy Hx of cataract extraction History of ankle surgery History of surgical removal of skin lesion History of hemorrhoidectomy History of appendectomy Family History Father Prostate cancer Mother Parkinson disease Social History Household Members Other:: Daughter and grand child Alcohol intake: former Patient Tobacco Use Status: Former Tobacco user Smoked in Last 30 Days: No Use of substances other than those prescribed or required for medical reasons: No Advance Directives: No Advance Directives Information Provided: No Do you have a plan to hurt others: No Plan Review of Systems Const All systems reviewed & are unremarkable except as noted in HPI and below Reports no additional complaints Resp Reports no additional complaints GI Reports no additional complaints Reports as per HPI Musc Reports no additional complaints Physical Exam Telemedicine evaluation Appropriate responses Regular breathing rate and rhythm HEENT Head: Yes normal to inspection Ears: hearing grossly normal bilaterally Eyes General: appearance normal, both eyes and all related structures Neck Neck: Yes normal visual inspection Chest Chest palpation & inspection: normal inspection of the chest Resp Effort & Inspection: normal respiratory effort and able to speak in complete sentences Telehealth Telehealth Telehealth Platform: [employer] Location of provider rendering services: practice address Location of patient: address on file Patient Identification confirmed using: Name, : Yes Telehealth method: video Patient verbally consented to treatment: Yes Patient verbally consented to billing insurance company: Yes Patient informed of any privacy concerns related to visit: Yes Minutes spent on Phone/Video with Pt.: 15 Assessment & Plan Assessment & Plan (1) Erectile dysfunction: Code(s): N52.9 - Male erectile dysfunction, unspecified Category: Medical (2) BPH w urinary obs/LUTS: Code(s): N40.1 - Benign prostatic hyperplasia with lower urinary tract symptoms; N13.8 - Other obstructive and reflux uropathy Category: Medical Plan Continue tadalafil Patient Instructions: Imaging studies, laboratory and physical exam results were discussed and reviewed in detail. No major barriers to patient understanding were identified. An opportunity to ask questions regarding the treatment plan was provided. All questions were answered. The patient expressed understanding and agreement with the above treatment plan. The patient is aware they should contact our office by phone for worsening of their current condition or the appearance of new urologic symptoms. Compliance is encouraged with any medications and followup testing that is ordered. It is a privilege to participate in the urologic care of your patient. If you have any questions or concerns regarding treatment for the above conditions, or other urologic issues, please do not hesitate to contact me. The office telephone contact is [phone]. This note is constructed using voice recognition software. While every effort has been made to ensure accuracy chair mender errors may have been included. Yours sincerely, Dr Ke Rivera MD, [facility] - Urology Providers of Expert, Compassionate Care for the Genitourinary System Coding Level of Care Code Tele Est Pt Level 3 (96581) Diagnoses Erectile dysfunction N52.9 BPH w urinary obs/LUTS N40.1; N13.8
--- OUTSIDE RECORDS SUMMARY | 2023-12-21 09:26 | XMS_ITS | Patient Health Record ---
Author Organization [facility] Address [address] [place] [address] Care Team Providers Care Reservoir Engineering Manager Name Role Phone Dawson Millard MD, Clayton Primary Care Provide Glenn Mary Jr Unavailable [phone] ALLERGIES Allergen (clinical drug ingredient) Drug/Non Drug [...] Blood Reviewed date:09/22/2023 03:04:56 PM Interpretation: Performing Lab:[address] [address] Notes/Report: Glucose, Whole Blood 106 60-115 mg/dL METER # : [id number] Pathology Reviewed date:10/05/2023 11:07:51 AM Interpretation: Performing Lab:[address] [address] Notes/Report: REASON FOR REFERRAL No Information MEDICATIONS [...] Orally Once a day Active Albuterol Active metFORMIN HCl ER 500 MG 1 tablet with evening meal Orally Once a day Active Amitriptyline HCl 10 MG TAKE 1 TABLET BY MOUTH AT BEDTIME Diagnosis Unavailable Oral for 30 Active Non-Aspirin Pain Relief PRN (tylenol) Active Multivitamin Adults - as directed Orally Active Pantoprazole Sodium 40 MG 1 tablet Orally Once a day for 30 days 11/24/2023 Active IMMUNIZATIONS Vaccine Route Administration Date Status [...] Problem Colon cancer screening (Z12.11) Active confirmed 142083665 Problem Epigastric pain (R10.13) Active confirmed 13319012 Problem Gastro-esophageal reflux disease without esophagitis (K21.9) Active confirmed Gastro-esophag eal reflux disease without esophagitis (745889002) Problem Personal history of colonic polyps (Z86.010) Active confirmed 349031181 Problem Irritable bowel syndrome with diarrhea (K58.0) Active confirmed 491543784 Problem Generalized abdominal pain (R10.84) Active confirmed 962637841 Problem Gastroesophageal reflux disease without esophagitis (K21.9) Active confirmed 292543587 Problem History of colon polyps (Z86.010) Active confirmed History of polyp of colon (607945741) Problem Gastroesophageal reflux disease with esophagitis without hemorrhage (K21.00) Active confirmed 368062343 VITAL SIGNS Temperature 96.9 degrees Fahrenheit 08/14/2023 Blood pressure diastolic 00 mm Hg 08/14/2023 Height 67 in 08/14/2023 Blood pressure systolic 000 mm Hg 08/14/2023 Weight 162 lb 4 oz lbs 08/14/2023 BMI 25.41 kg/m2 08/14/2023 Encounters Encounter Location Date Provider Diagnosis [facility] Out[place] [address] [place] [phone] 09/22/2023 Glenn Monroy Jr Gastro-esophageal reflux disease without esophagitis K21.9 [facility] [address] [place] [address] 09/13/2023 Glenn Monroy Jr [facility] [address] [facility] [place] [address] 08/14/2023 Glenn Monroy Jr Gastroesophageal reflux disease without esophagitis K21.9 and Irritable bowel syndrome with diarrhea K58.0 [facility] [address] [place] [address] 03/17/2023 Glenn Monroy Jr Gastroesophageal reflux disease with esophagitis without hemorrhage K21.00 [facility] [address] [facility] [place] [address] 05/01/2023 Glenn Monroy Jr [facility] [address] [facility] [place] [address] 09/18/2023 Glenn Monroy Jr [facility] [address] [facility] [place] [address] 09/20/2023 Glenn Monroy Jr [facility] [address] [facility] [place] [address] 10/05/2023 Glenn Monroy Jr [facility] [address] [facility] [place] [address] 11/24/2023 Glenn Monroy Jr Gastroesophageal reflux disease without esophagitis K21.9 [facility] [address] [facility] [place] [address] 11/28/2023 Glenn Monroy Jr ASSESSMENTS Encounter Date Diagnosis Assessment Notes Treatment Notes Treatment Clinical Notes 09/22/2023 Gastro-esophageal reflux disease without esophagitis (ICD-10 - K21.9) 08/14/2023 Irritable bowel syndrome with diarrhea (ICD-10 - K58.0) 08/14/2023 Gastroesophageal ref lux disease without esophagitis (ICD-10 - K21.9) Endoscopy material was printed 03/17/2023 Gastroesophageal ref lux disease with esophagitis without hemorrhage (ICD-10 - K21.00) 11/24/2023 Gastroesophageal ref lux disease without esophagitis (ICD-10 - K21.9) PLAN OF TREATMENT Pending Test Test Name Order Date XR GI SERIES 01/03/2019 Future Test Test Name Order Date UPPER GI ENDOSCOPY 10/29/2014 UPPER GI ENDOSCOPY 01/13/2016 COLONOSCOPY 01/13/2016 UPPER GI ENDOSCOPY 10/29/2020 COLONOSCOPY 10/29/2020 UPPER GI ENDOSCOPY 08/14/2023 Insurance Providers Payer Name Payer Address Payer Phone Subscriber Number Group Number Insured Name Patient Relationship to Insured Coverage Start Date Coverage End Date [facility] [address] Attn Claims CIPRIANO Julio [id number] ROBB PADRON Self - patient is the insured MEDICAL (GENERAL) HISTORY Medical History History ICD Code EGD 11/20/20, no Handley's esophagus or H . pylori. Hypertension Hyperlipidemia Gastroesophageal reflux disease Personal history of polyps, colonoscopy 11/20/20, 2 small tubular adenomas, seven-year followup CVA x2 , 4 and 11/13 Arthritis Asthma Surgical History Surgery Date(Month/Year) appendectomy Cystoscopy Excision of lump on neck Skin biopsies hemorrhoidectomy ankle surgery 01/15/2018
--- OUTSIDE RECORDS SUMMARY | 2023-12-21 09:26 | XMS_ITS ---
Author Organization [facility] Address [address] [place] [address] Care Team Providers Care Animal Attendant Name Role Phone Dawson Millard MD, Clayton Primary Care Provide r Glenn Thompson Jr Unavailable REASON FOR VISIT pathology Encounters Encounter Location Date Provider Diagnosis [facility] [address] [place] [address] 10/05/2023 Glenn Monroy Jr PLAN OF TREATMENT No Information
--- OUTSIDE RECORDS SUMMARY | 2023-12-21 09:26 | XMS_ITS ---
Author Organization [facility] Address [address] [place] [address] Care Team Providers Care Medical Cost Consultant Name Role Phone Dawson Millard MD, Clayton Primary Care Provide r Glenn Thompson Jr Unavailable [phone] REASON FOR VISIT Needs different RX sent MEDICATIONS Medication SIG (Take, Route, Frequency, Duration) Notes Start Date End Date Status Pantoprazole Sodium 40 MG 1 tablet Orall y Once a day for 30 day(s) 11/24/2023 Active Encounters Encounter Location Date Provider Diagnosis [facility] [address] [place] [phone] 11/24/2023 Glenn Monroy Jr Gastroesophageal reflux disease without esophagitis K21.9 ASSESSMENTS Encounter Date Diagnosis Assessment Notes Treatment Notes Treatment Clinical Notes 11/24/2023 Gastroesophageal ref lux disease without esophagitis (ICD-10 - K21.9) PLAN OF TREATMENT Medication Medication Name Sig Start Date Stop Date Notes Pantoprazole Sodium 40 MG 1 tablet Orall y Once a day for 30 day(s) 11/24/2023 Lansoprazole 30 MG 1 Orally Twice a day 08/14/2023
== END 2023-12-21 16:30 | disposition home or self-care (01) ==
PROVIDERS: PCP Internal Medicine; Visit Provider Urology
DX: N52.9 Male erectile dysfunction, unspecified (principal); N40.1 Benign prostatic hyperplasia with lower urinary tract symptoms; N13.8 Other obstructive and reflux uropathy
CPT/HCPCS: 99213

== ENCOUNTER → 2023-12-21 09:23 | Outpatient (BNVA) | payer OTHER, SELFPAY | PROVIDERS: PCP Internal Medicine; Visit Provider Urology ==

== ENCOUNTER 2024-01-05 12:25 | Emergency (ER) | payer OTHER, SELFPAY ==
--- NOTE | ~2024-01-05 | CT_ITS ---
EXAMINATION: CT ANGIOGRAM HEAD CT ANGIOGRAM NECK CLINICAL INFORMATION: Right-sided headache. Left-sided weakness. COMPARISON: CT head and cervical spine from 08/29/2023. TECHNIQUE: Initial noncontrast housing relocation imaging of the head and neck was performed. Noncontrast head CT was also performed. Test bolus sequences followed by intravenous administration 70 mL of Omnipaque 350. Helical imaging was performed in the axial plane from the aortic arch to the skull vertex. Delayed postcontrast imaging of the head was also performed. The data was processed at the generation technologist's workstation for generation of MIP sequences. Angled MIPs and volume rendered reformatted images were also generated at an offline 3D workstation. Stenoses are assessed in accordance with NASCET criteria unless otherwise indicated. This CT examination was performed using dose optimization techniques as appropriate, variously including the following: *Automated exposure control. *Adjustment of mA and/or kV according to patient size (this includes techniques or standardized protocols for targeted exams where dose is matched to indication/reason for exam; i.e. extremities or head). *Use of iterative reconstruction technique. DLP: 2176 mGy-cm FINDINGS: CT Head: There is no evidence of acute intracranial hemorrhage or edematous territorial infarction. Chronic lacunar infarcts of the bilateral lentiform nuclei and left thalamus. No new loss of díaz-white matter differentiation. Scattered and partially confluent hypoattenuation in the periventricular and deep white matter are consistent with moderate to extensive microangiopathy. Proportional prominence of the ventricles and sulcal spaces without evidence of obstructive hydrocephalus. No abnormal mass effect or midline shift. No extra-axial fluid collections. No pathologic intra-axial enhancement or regional oligemia. No acute soft tissue or osseous abnormalities. Mild mucosal thickening of the paranasal sinuses. The mastoid air cells and middle ear cavities are clear. CT Neck: The thyroid gland and remaining cervical soft tissues are within normal limits. Straightening of the normal cervical lordosis. Advanced degenerative disc disease from C5-C7. Moderate degenerative disc disease at all additional levels. Facet and uncovertebral joint arthropathy leads to osseous encroachment on the neural foramina from C4-C7. CT Upper Chest: The visualized lung apices and upper mediastinum are within normal limits. Neck CTA: Aortic Arch: Normal contour and caliber. Classic 3 vessel branching pattern of the aortic arch. Great Vessel Origins: No significant stenosis of the branch origins. Right Common Carotid Artery: No focal stenosis or occlusion. Cervical Right Internal Carotid Artery: Calcific atherosclerotic disease of the carotid bulb and proximal internal carotid artery causing less than 50% stenosis. Left Common Carotid Artery: No focal stenosis or occlusion. Cervical Left Internal Carotid Artery: Calcific atherosclerotic disease of the carotid bulb and proximal internal carotid artery causing less than 50% stenosis. Cervical Right Vertebral Artery: Co-dominant. No focal stenosis or occlusion. Cervical Left Vertebral Artery: Co-dominant. No focal stenosis or occlusion. Brain CTA: Intracranial Internal Carotid Arteries: Calcific atherosclerotic disease of the intracranial internal carotid arteries without occlusion or flow-limiting stenosis. Right Anterior Cerebral Artery: Normal A1 segment. Normal opacification of the distal JANET segments. Left Anterior Cerebral Artery: Normal A1 segment. Normal opacification of the distal JANET segments. Anterior Communicating Artery: Normal. Right Middle Cerebral Artery: Normal M1 segment of the MCA without focal stenosis or occlusion. Normal arborization of the distal segments. Left Middle Cerebral Artery: Normal M1 segment of the MCA without focal stenosis or occlusion. Normal arborization of the distal segments. Right Vertebral Artery: Normal V4 segment. Normal opacification of the proximal segments of the posterior inferior cerebellar artery. Left Vertebral Artery: Normal V4 segment. Normal opacification of the proximal segments of the posterior inferior cerebellar artery. Basilar Artery: Normal without focal stenosis or occlusion. Normal appearance of the proximal superior cerebellar arteries. Right Posterior Cerebral Artery: Normal P1 segment. Normal opacification of the distal RESIDENTIAL REAL ESTATE SALES MANAGER segments. Left Posterior Cerebral Artery: Normal P1 segment. Normal opacification of the distal RESIDENT[employer] SALES MANAGER segments. Normal opacification of the superior sagittal, straight, transverse, and sigmoid sinuses. CT/CT angio head neck IMPRESSION: 1. No evidence of acute intracranial hemorrhage or edematous territorial infarction. 2. CTA of the head and neck without proximal occlusion or flow-limiting stenosis. 3. Moderate to extensive underlying microangiopathy and generalized cerebral volume loss. Chronic lacunar infarcts of the deep nuclei. Electronically signed by: Luke Melo DO 01/05/2024 02:55 PM EDT
--- NOTE | 2024-01-05 12:37 | ED_ITS ---
HPI - General Adult General Chief complaint: General Medical Stated complaint: Headache Time Seen by Provider: 01/05/24 12:31 Source: patient Mode of arrival: ambulatory Limitations: no limitations History of Present Illness ED Provider: Rc ROLDAN HPI narrative: This is a 78-year-old male history of BPH, erectile dysfunction, hemorrhoids, CVA per patient reporting to the emergency department with complaints of right- sided headache that is severe and throbbing in the temporal region patient reports this came on yesterday night with some associated left-sided weakness to left upper extremity he reports he has a history of stroke and this weakness is not new but seems more pronounced. He denies any falls or trauma, reports he does not typically get headaches like this. He states he gets headaches however not this severe. He took Tylenol with little to no relief of symptoms. Denies fevers, chills, neck pain, nausea, vomiting, chest pain, shortness of breath. NIHSS- 0 on arrival Related Data Home Medications ?Medication ?Instructions ?Recorded ?Confirmed amitriptyline 25 mg tablet 25 mg PO DAILY 01/28/20 09/22/23 furosemide 20 mg tablet (Lasix) 20 mg PO DAILY 01/28/20 09/22/23 sildenafil 100 mg tablet 100 mg PO DAILY PRN 01/28/20 12/20/22 albuterol sulfate 2.5 mg/3 mL 2.5 mg inhalation QID PRN Wheezing 06/11/20 12/20/22 (0.083 %) solution for nebulization aspirin 81 mg tablet,delayed 81 mg PO DAILY 06/11/20 09/22/23 release atorvastatin 80 mg tablet 80 mg PO DAILY 06/11/20 09/22/23 diclofenac sodium 1 % topical gel 1 g topical BID PRN 06/11/20 12/20/22 losartan 100 mg tablet 100 mg PO DAILY 06/11/20 09/22/23 multivitamin 1 tab PO DAILY 06/11/20 12/20/22 albuterol sulfate 90 mcg/actuation 2 puff inhalation Q4-6H PRN 11/13/20 12/20/22 aerosol inhaler (Ventolin HFA) Wheezing blood sugar diagnostic (FreeStyle #10 ea 06/15/21 12/20/22 Lite Strips) lancets 33 gauge (TRUEplus Lancets) #100 ea 06/15/21 12/20/22 metformin 500 mg tablet,extended 500 mg PO DAILY 06/15/21 09/22/23 release 24 hr pantoprazole 40 mg tablet,delayed 40 mg PO DAILY 06/15/21 09/22/23 release nitroglycerin 0.4 mg sublingual 0 mg sublingual 12/17/21 12/20/22 tablet metoprolol tartrate 25 mg tablet 37.5 mg PO DAILY 08/26/22 09/22/23 Previous Rx's ?Medication ?Instructions ?Recorded hydrocortisone acetate 25 mg 25 mg DC BID PRN hemorrhoid pain 11/21/22 rectal suppository (Anucort-HC) #24 ea tadalafil 5 mg tablet 5 mg PO DAILY sexual activity 90 12/20/22 days #90 tabs lidocaine 5 % topical patch 1 patch topical DAILY #30 ea 08/29/23 aluminum hydrox-magnesium carb 254 10 ml PO QID PRN dyspepsia #355 mL 11/14/23 mg-237.5 mg/5 mL oral suspension (Gaviscon Extra Strength) pantoprazole 40 mg tablet,delayed 40 mg PO DAILY #30 tabs 11/14/23 release Allergies Allergy/AdvReac Type Severity Reaction Status Date / Time lisinopril [LISINOPRIL] Allergy Intermediate COUGH Verified 01/05/24 12:44 oxycodone [From PERCOCET] Allergy Intermediate VOMITING Verified 01/05/24 12:44 alprazolam [From XANAX] AdvReac Intermediate VOMITING Verified 01/05/24 12:44 gabapentin AdvReac Abdominal Verified 01/05/24 12:44 Pain Review of Systems 2 Review of Systems: Yes all other systems are reviewed and are negative [facility] Past Medical History Attestation statement: The following information was validated with the patient. Source: old records reviewed and nursing notes reviewed Medical History Bleeding hemorrhoids Diabetes mellitus Arteriosclerosis Cancer Pulmonary nodule Non-ischemic cardiomyopathy CVA (cerebral vascular accident) Arthritis Asthma GERD (gastroesophageal reflux disease) Elevated cholesterol Diastolic dysfunction Erectile dysfunction Surgical History Hx of transurethral resection of prostate History of esophagogastroduodenoscopy (EGD) H/O colonoscopy Hx of cataract extraction History of ankle surgery History of surgical removal of skin lesion History of hemorrhoidectomy History of appendectomy Family History Family History Father Prostate cancer Mother Parkinson disease Social History Social History Household Members Other:: Daughter and grand child Alcohol intake: former Patient Tobacco Use Status: Former Tobacco user Advance Directives: No Advance Directives Information Provided: No Do you have a plan to hurt others: No Plan Physical Exam ED Vital Signs: Vital Signs - 24 hr 01/05/24 12:40 01/05/24 14:20 Temperature 98.0 F 97.2 F Pulse Rate 58 61 Respiratory Rate 18 18 Blood Pressure 149/84 H 142/92 H Pulse Oximetry 97 94 Oxygen Delivery Method Room Air Room Air BMI result Body Mass Index 26.3 vss Appearance: Alert.? Oriented X3.? No acute distress.? Head: Normocephalic, atraumatic, no step-offs or deformities Eyes: Pupils equal, round and reactive to light.? Neck: Normal inspection.? Neck supple.? CVS: Normal heart rate and rhythm.? Pulses normal.? Respiratory: No respiratory distress.? Breath sounds normal.? Abdomen: Soft and nontender.? Skin: Skin warm and dry.? Normal skin color.? Normal skin turgor.? Extremities: No lower extremity edema.? No calf ttp. 5/5 strength to bilateral upper and lower extremities Neuro: Oriented X 3.? No motor deficit.? No sensory deficit. CN 2-12 intact . Normal tjthla-ca-kztr, vhml-qn-lhkb. Course Reevaluation(s) Reevaluation #1: CBC unremarkable. Chemistry no acute findings needing intervention. CT head and angio head and neck pending. Sign out to Shira. Time: 13:25 Medications Administered Discontinued Medications Generic Name Dose Route Start Last Admin Trade Name Freq PRN Reason Stop Dose Admin Acetaminophen 975 mg 01/05/24 12:40 01/05/24 13:41 Acetaminophen 325 Mg Tablet PO 01/05/24 12:41 975 mg ONCE ONE Administration Diphenhydramine HCl 25 mg 01/05/24 12:40 01/05/24 13:41 Diphenhydramine Hcl 25 Mg Capsule PO 01/05/24 12:41 25 mg ONCE ONE Administration Iohexol 100 ml 01/05/24 14:38 01/05/24 14:38 Iohexol 350 Mg/Ml 100 Ml Infus..Btl IV 01/05/24 14:39 70 ml ONCE ONE Administration Metoclopramide HCl 10 mg 01/05/24 12:40 01/05/24 13:41 Metoclopramide Hcl 10 Mg Tablet PO 01/05/24 12:41 10 mg ONCE ONE Administration Medical Decision Making Medical Decision Making [facility] Narrative: 78-year-old male presents with right-sided headache that started yesterday and left-sided weakness that is permanent from previous stroke. Coming in from the [facility]. Physical exam benign NIH stroke scale 0 History and physical exam concerning for complex migraine versus migraine. Less likely acute stroke, intracranial hemorrhage, posterior stroke. Will rule out metabolic derangements. Plan- labs imaging Shira Robison PA-C 1971 --> Patient's imaging was negative. Patient's headache better with pain medication. Patient's stroke scale remains negative. Patient clear for discharge. Differential Diagnosis Differential Diagnoses: The differential diagnosis associated with the presentation includes (History and physical exam concerning for complex migraine versus migraine. Less likely acute stroke, intracranial hemorrhage, posterior stroke. Will rule out metabolic derangements.) Admission/Observation Consideration of admission/observation: Escalation of care including admission/observation considered Lab Data [facility] Lab Attestation statement: I reviewed the patient's lab results. 01/05/24 12:54 01/05/24 12:54 Labs: Lab Results 01/05/24 Range/Units 12:54 WBC 8.2 (4.8-10.8) X10*3/uL RBC 5.21 (4.60-5.80) X10*6/uL Hgb 16.8 (14.0-18.0) g/dl Hct 50.6 (42.0-52.0) % MCV 97.1 (80.0-98.0) fL MCH 32.2 (27.0-33.0) pg MCHC 33.2 (31.0-36.0) g/dl RDW 13.0 (11.0-16.0) % Plt Count 229 (160-400) X10*3/uL MPV 10.2 (9.4-12.4) fL Immature Gran % (Auto) 0.1 (0.0-0.4) % Neut % (Auto) 60.6 (45-73) % Lymph % (Auto) 32.3 (20-40) % Karnes % (Auto) 5.8 (2-11) % Eos % (Auto) 0.7 (0-4) % Baso % (Auto) 0.5 (0-2) % Lymph # (Auto) 2.7 (1.2-4.9) X10*3/uL Karnes # (Auto) 0.5 (0.1-1.2) X10*3/uL Eos # (Auto) 0.1 (0.0-0.4) X10*3/uL Baso # (Auto) 0.0 (0.0-0.2) X10*3/uL Abs Immat Gran (auto) 0.01 (0.00-0.03) X10*3/uL Absolute Neuts (auto) 5.0 (2.0-8.3) x10*3/uL Absolute Nucleated RBC 0.000 (0.0-0.012) X10*3/uL Nucleated RBC % (auto) 0.0 (0.0-0.2) /100WBC PT 11.0 (10.9-12.4) SEC INR 0.9 (0.9-1.1) Sodium 140 (135-145) mmol/L Potassium 4.8 (3.3-5.1) mmol/L Chloride 104 (96-108) mmol/L Carbon Dioxide 27 (22-29) mmol/L Anion Gap 14 (12-20) BUN 10 (9-16) mg/dL Creatinine 0.86 (0.5-1.4) mg/dL Estim Creat Clear Calc 67.2 Estimated GFR > 60 Random Glucose 104 (60-115) mg/dL Calcium 10.1 D (8.4-10.2) mg/dL Magnesium 2.1 (1.6-2.6) mg/dL Total Bilirubin 0.8 (0.0-1.0) mg/dL AST 26 (5-37) U/L ALT 28 (0-40) U/L Alkaline Phosphatase 97 (39-117) U/L Total Protein 7.9 (6.5-8.0) g/dL Albumin 4.7 (3.5-5.0) g/dL Independent Interpretation I performed an independent interpretation of an: CT Scan Radiology Impression Discussion of test interpretation with radiology: I have reviewed the radiologist's reading. External Record Review External record reviewed: Inpatient record, Office record, Outpatient record, Prior outpatient labs, Prior outpatient radiology, Primary care record and Outside ED record Chronic Conditions Patient?s care impacted by: Other (see HPI) Critical Care Time Critical Care Time Critical Care Time: Yes Total Critical Care Time: 35 Attestation: I attest to this time spent taking care of the patient, obtaining history, physical, reviewing labs, imaging, treatment of patients condition +/- specialist/hospitalist consult Discharge Plan Discharge Clinical Impression: Headache Patient Disposition: Home, Self-Care Instructions: Acute Headache (ED) Additional Instructions: Take your medications as prescribed. If you were prescribed antibiotics today, it is important that you take your medication to their entirety, do not skip any doses, do not finish them early. Follow-up with your primary care provider this week. Return to the emergency department with new or worsening symptoms. Such as fevers, chills, chest pain, shortness of breath, nausea, vomiting, dizziness, headache, vision changes, lethargy In case of emergency call 911 Prescriptions: No Action albuterol sulfate [Ventolin HFA] 90 mcg/actuation Hfa Aerosol Inhaler 2 puff INHALATION Q4-6H PRN (Reason: Wheezing) lidocaine 5 % adhesive patch,medicated 1 patch topical DAILY Qty: 30 0RF Rx Instructions: leave on most painful area for up to 12 hrs Gaviscon Extra Strength 254-237.5 mg/5 mL suspension 10 ml PO QID PRN (Reason: dyspepsia) Qty: 355 0RF pantoprazole 40 mg tablet,delayed release (DR/EC) 40 mg PO DAILY Qty: 30 0RF albuterol sulfate 2.5 mg /3 mL (0.083 %) solution for nebulization 2.5 mg inhalation QID PRN (Reason: Wheezing) atorvastatin 80 mg tablet 80 mg PO DAILY losartan 100 mg tablet 100 mg PO DAILY aspirin 81 mg tablet,delayed release (DR/EC) 81 mg PO DAILY multivitamin Tablet 1 tab PO DAILY diclofenac sodium 1 % gel 1 g topical BID PRN amitriptyline 25 mg tablet 25 mg PO DAILY sildenafil 100 mg tablet 100 mg PO DAILY PRN Rx Instructions: administer 30 minutes to 4 hours before activity furosemide [Lasix] 20 mg tablet 20 mg PO DAILY metformin 500 mg tablet extended release 24 hr 500 mg PO DAILY pantoprazole 40 mg tablet,delayed release (DR/EC) 40 mg PO DAILY (DME) lancets [TRUEplus Lancets] 33 gauge misc See Rx Instructions topical .MEDSUPPLY Qty: 100 Rx Instructions: As directed (DME) FreeStyle Lite Strips Strip See Rx Instructions Not Applicable BID Qty: 10 Rx Instructions: As directed nitroglycerin 0.4 mg tablet, sublingual 0 mg sublingual tadalafil 5 mg tablet 5 mg PO DAILY 90 Days Qty: 90 1RF Rx Instructions: BIN [id number] [facility] Group 33 metoprolol tartrate 25 mg tablet 37.5 mg PO DAILY hydrocortisone acetate [Anucort-HC] 25 mg suppository 25 mg DC BID PRN (Reason: hemorrhoid pain) Qty: 24 2RF Print Language: Palestinian
[2024-01-05 12:40] VITALS: BP 149/84; BP 156/90; PULSE 58; PULSE 60; RESP 18; TEMP 36.7; O2SAT 97; O2SAT 99; BMI 26.3
[2024-01-05 13:00] LABS: MANUAL DIFF FLAG NO
[2024-01-05 13:04] LABS: Basophils Percent Auto 0.5 % (0-2); Eosinophils Absolute Auto 0.1 X10*3/uL (0.0-0.4); Eosinophils Percent Auto 0.7 % (0-4); Hematocrit 50.6 % (42.0-52.0); Hemoglobin 16.8 g/dl (14.0-18.0); Imm Gran Abs Auto 0.01 X10*3/uL (0.00-0.03); Imm Gran Pct Auto 0.1 % (0.0-0.4); Lymphocytes Absolute Auto 2.7 X10*3/uL (1.2-4.9); Lymphocytes Percent Auto 32.3 % (20-40); Mean Corpuscular HGB Conc 33.2 g/dl (31.0-36.0); Mean Corpuscular Hemoglobin 32.2 pg (27.0-33.0); Mean Corpuscular Volume 97.1 fL (80.0-98.0); Mean Platelet Volume 10.2 fL (9.4-12.4); Monocytes Absolute Auto 0.5 X10*3/uL (0.1-1.2); Monocytes Percent Auto 5.8 % (2-11); Neutrophils Percent Auto 60.6 % (45-73); Platelet Count 229 X10*3/uL (160-400); Red Blood Count 5.21 X10*6/uL (4.60-5.80); White Blood Count 8.2 X10*3/uL (4.8-10.8)
[2024-01-05 13:08] LABS: INTERNATIONAL NORM RATIO 0.9 (0.9-1.1)
--- OUTSIDE RECORDS SUMMARY | 2024-01-05 13:15 | XMS_ITS ---
Author Organization [facility] Address [address] [place] [address] Care Team Providers Care Dust Mill Operator Name Role Phone Dawson Millard MD, Clayton Primary Care Provide r Glenn Thompson Jr Unavailable [phone] REASON FOR VISIT pathology Encounters Encounter Location Date Provider Diagnosis [facility] [address] [place] [address] 10/05/2023 Glenn Monroy Jr PLAN OF TREATMENT No Information
--- OUTSIDE RECORDS SUMMARY | 2024-01-05 13:15 | XMS_ITS | Patient Health Record ---
Author Organization [facility] Address [address] [place] [address] Care Team Providers Care Assisted Living Nursing Director Name Role Phone Dawson Millard MD, Clayton [...] Blood Reviewed date:09/22/2023 03:04:56 PM Interpretation: Performing Lab:[address] [address] Notes/Report: Glucose, Whole Blood 106 60-115 mg/dL METER # : [id number] Pathology Reviewed date:10/05/2023 11:07:51 AM Interpretation: Performing Lab:[address] [address] Notes/Report: REASON FOR REFERRAL No Information MEDICATIONS [...] Problem Colon cancer screening (Z12.11) Active confirmed [id number] Problem Epigastric pain (R10.13) Active confirmed [id number] Problem Gastro-esophageal reflux disease without esophagitis (K21.9) Active confirmed Gastro-esophag eal reflux disease without esophagitis (088836156) Problem Personal history of colonic polyps (Z86.010) Active confirmed 057540695 Problem Irritable bowel syndrome with diarrhea (K58.0) Active confirmed 090615332 Problem Generalized abdominal pain (R10.84) Active confirmed 986432616 Problem Gastroesophageal reflux disease without esophagitis (K21.9) Active confirmed 188287025 Problem History of colon polyps (Z86.010) Active confirmed History of polyp of colon (836020274) Problem Gastroesophageal reflux disease with esophagitis without hemorrhage (K21.00) Active confirmed 453590964 VITAL SIGNS Temperature 96.9 degrees Fahrenheit 08/14/2023 Blood pressure diastolic 00 mm Hg 08/14/2023 Height 67 in 08/14/2023 Blood pressure systolic 000 mm Hg 08/14/2023 Weight 162 lb 4 oz lbs 08/14/2023 BMI 25.41 kg/m2 08/14/2023 Encounters Encounter Location Date Provider Diagnosis [facility] [address] [place] [id number] 09/22/2023 Glenn Monroy Jr Gastro-esophageal reflux disease without esophagitis K21.9 [facility] [address] [place] [address] 09/13/2023 Glenn Monroy Jr [facility] [address] [facility] [place] [address] 08/14/2023 Glenn Monroy Jr Gastroesophageal reflux disease without esophagitis K21.9 and Irritable bowel syndrome with diarrhea K58.0 [facility] [address] [place] [address] 03/17/2023 Glenn Monroy Jr Gastroesophageal reflux disease with esophagitis without hemorrhage K21.00 [facility] [address] [facility] [place] [address] 05/01/2023 Glenn Monroy Jr [facility] [address] [facility] [place] [address] 09/18/2023 Glenn Monroy Jr [facility] [address] [facility] [place] [address] 09/20/2023 Glenn Monroy Jr [facility] [address] [facility] [place] [address] 10/05/2023 Glenn Monroy Jr [facility] [address] [facility] [place] [address] 11/24/2023 Glenn Monroy Jr Gastroesophageal reflux disease without esophagitis K21.9 [facility] [address] [facility] [place] [address] 11/28/2023 Glenn Monroy Jr ASSESSMENTS Encounter Date [...] Insured Coverage Start Date Coverage End Date [facility] [address] Attn Claims CIPRIANO Julio [id number] ROBB PADRON Self - patient is the [...]
--- OUTSIDE RECORDS SUMMARY | 2024-01-05 13:15 | XMS_ITS ---
Author Organization [facility] Address [address] [place] [address] Care Team Providers Care Applications Support Engineer Name Role Phone Dawson Millard MD, Clayton Primary Care Provide iker Monroy Jr, Glenn Unavailable REASON FOR VISIT Abdominal pain MEDICATIONS Medication SIG (Take, Route, Frequency, Duration) Notes Start Date End Date Status Pantoprazole Sodium 40 MG 1 tablet Orall y Once a day for 30 days 11/24/2023 Active Encounters Encounter Location Date Provider Diagnosis [facility] [address] [place] [phone] 11/28/2023 Glenn Monroy Jr PLAN OF TREATMENT Medication Medication Name Sig Start Date Stop Date Notes Pantoprazole Sodium 40 MG 1 tablet Orall y Once a day for 30 days 11/24/2023
--- OUTSIDE RECORDS SUMMARY | 2024-01-05 13:15 | XMS_ITS ---
Author Organization [facility] Address [address] [place] [address] Care Team Providers Care V Belt Mold Assembler And Curer Name Role Phone Dawson Millard MD, [place] [facility] Provide r Glenn Thompson Jr Unavailable REASON FOR VISIT Needs different RX sent MEDICATIONS Medication SIG (Take, Route, Frequency, Duration) Notes Start Date End Date Status Pantoprazole Sodium 40 MG 1 tablet Orall y Once a day for 30 day(s) 11/24/2023 Active Encounters Encounter Location Date Provider Diagnosis [facility] [address] [place] [id number] 11/24/2023 Glenn Monroy Jr Gastroesophageal reflux disease [...]
[2024-01-05 13:23] LABS: Alanine Aminotransferase 28 U/L (0-40); Albumin Level 4.7 g/dL (3.5-5.0); Alkaline Phosphatase 97 U/L (39-117); Anion Gap 14 (12-20); Aspartate Amino Transferase 26 U/L (5-37); Bilirubin Total 0.8 mg/dL (0.0-1.0); Blood Urea Nitrogen 10 mg/dL (9-16); Calcium 10.1 mg/dL (8.4-10.2); Carbon Dioxide 27 mmol/L (22-29); Chloride 104 mmol/L (96-108); Creatinine Clr Calc Pharmacy 67.2; Estimated Glomerular Filt Rate > 60; Glucose Random 104 mg/dL (60-115); Magnesium 2.1 mg/dL (1.6-2.6); Potassium 4.8 mmol/L (3.3-5.1); Sodium 140 mmol/L (135-145); Total Protein 7.9 g/dL (6.5-8.0)
[2024-01-05] MEDS: Acetaminophen 325 MG TABLET 975 MG PO (13:41)
[2024-01-05] MEDS: Metoclopramide HCl 10 MG TABLET PO (13:41)
[2024-01-05] MEDS: diphenhydrAMINE HCL 25 MG CAPSULE PO (13:41)
[2024-01-05 14:20] VITALS: BP 142/92; PULSE 61; RESP 18; TEMP 36.2; O2SAT 94
[2024-01-05] MEDS: iohexoL 350 MG/ML 100 ML INFUS..BTL IV (14:38)
[2024-01-05 15:42] VITALS: BP 149/93; PULSE 60; RESP 16; TEMP 36.8; O2SAT 98
== END 2024-01-05 15:43 | disposition home or self-care (01) ==
PROVIDERS: Physician Assistant; Emergency Provider Emergency Medicine; PCP Internal Medicine
DX: R51.9 Headache, unspecified (principal); E11.9 Type 2 diabetes mellitus without complications; E78.00 Pure hypercholesterolemia, unspecified; I50.30 Unspecified diastolic (congestive) heart failure; J45.909 Unspecified asthma, uncomplicated; Z79.899 Other long term (current) drug therapy; Z79.02 Long term (current) use of antithrombotics/antiplatelets; Z79.82 Long term (current) use of aspirin; Z79.84 Long term (current) use of oral hypoglycemic drugs
CPT/HCPCS: 36415; 70496; 70498; 80053; 83735; 85025; 85610; 99284; Q9967

== ENCOUNTER 2024-03-03 23:34 | Emergency (ER) | payer OTHER, SELFPAY ==
--- NOTE | 2024-03-03 | ECG_ITS ---
Test Reason : CP Blood Pressure : / mmHG Vent. Rate : 065 BPM Atrial Rate : 065 BPM P-R Int : 208 ms QRS Dur : 100 ms QT Int : 412 ms P-R-T Axes : - 123 degrees QTc Int : 428 ms Normal sinus rhythm Nonspecific ST and T wave abnormality Abnormal ECG When compared with ECG of 14-NOV-2023 12:45, No significant change was found Referred By: Generic ED Physician Electronically Signed By:MAXWELL GÓMEZ MD
[2024-03-03 23:43] VITALS: BP 149/94; BP 156/86; PULSE 68; PULSE 88; RESP 16; O2SAT 97; BMI 25.3
--- NOTE | 2024-03-03 23:53 | ED.MALEGU ---
HPI - Male Genitourinary General Chief complaint: Urogenital-Male Stated complaint: bleeding Time Seen by Provider: 03/03/24 23:53 Source: patient Mode of arrival: ambulatory Limitations: no limitations History of Present Illness ED Provider: HPI Narrative: Patient apparently started bleeding from 1 of the superficial vein on the scrotum on the right side just prior to arrival says that he was just watching TV and all of a sudden she noticed the blood coming out from the vein. 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 Related Data Home Medications ?Medication ?Instructions ?Recorded ?Confirmed amitriptyline 25 mg tablet 25 mg PO DAILY 01/28/20 09/22/23 furosemide 20 mg tablet (Lasix) 20 mg PO DAILY 01/28/20 09/22/23 sildenafil 100 mg tablet 100 mg PO DAILY PRN 01/28/20 12/20/22 albuterol sulfate 2.5 mg/3 mL 2.5 mg inhalation QID PRN Wheezing 06/11/20 12/20/22 (0.083 %) solution for nebulization aspirin 81 mg tablet,delayed 81 mg PO DAILY 06/11/20 09/22/23 release atorvastatin 80 mg tablet 80 mg PO DAILY 06/11/20 09/22/23 diclofenac sodium 1 % topical gel 1 g topical BID PRN 06/11/20 12/20/22 losartan 100 mg tablet 100 mg PO DAILY 06/11/20 09/22/23 multivitamin 1 tab PO DAILY 06/11/20 12/20/22 albuterol sulfate 90 mcg/actuation 2 puff inhalation Q4-6H PRN 11/13/20 12/20/22 aerosol inhaler (Ventolin HFA) Wheezing blood sugar diagnostic (FreeStyle #10 ea 06/15/21 12/20/22 Lite Strips) lancets 33 gauge (TRUEplus Lancets) #100 ea 06/15/21 12/20/22 metformin 500 mg tablet,extended 500 mg PO DAILY 06/15/21 09/22/23 release 24 hr pantoprazole 40 mg tablet,delayed 40 mg PO DAILY 06/15/21 09/22/23 release nitroglycerin 0.4 mg sublingual 0 mg sublingual 12/17/21 12/20/22 tablet metoprolol tartrate 25 mg tablet 37.5 mg PO DAILY 08/26/22 09/22/23 Previous Rx's ?Medication ?Instructions ?Recorded hydrocortisone acetate 25 mg 25 mg TN BID PRN hemorrhoid pain 11/21/22 rectal suppository (Anucort-HC) #24 ea tadalafil 5 mg tablet 5 mg PO DAILY sexual activity 90 12/20/22 days #90 tabs lidocaine 5 % topical patch 1 patch topical DAILY #30 ea 08/29/23 aluminum hydrox-magnesium carb 254 10 ml PO QID PRN dyspepsia #355 mL 11/14/23 mg-237.5 mg/5 mL oral suspension (Gaviscon Extra Strength) pantoprazole 40 mg tablet,delayed 40 mg PO DAILY #30 tabs 11/14/23 release Allergies Allergy/AdvReac Type Severity Reaction Status Date / Time lisinopril [LISINOPRIL] Allergy Intermediate COUGH Verified 03/03/24 23:47 oxycodone [From PERCOCET] Allergy Intermediate VOMITING Verified 03/03/24 23:47 alprazolam [From XANAX] AdvReac Intermediate VOMITING Verified 03/03/24 23:47 gabapentin AdvReac Abdominal Verified 03/03/24 23:47 Pain Review of Systems Review of Systems: Yes all other systems are reviewed and are negative [facility] Past Medical History Medical History Bleeding hemorrhoids Diabetes mellitus Arteriosclerosis Cancer Pulmonary nodule Non-ischemic cardiomyopathy CVA (cerebral vascular accident) Arthritis Asthma GERD (gastroesophageal reflux disease) Elevated cholesterol Diastolic dysfunction Erectile dysfunction Surgical History Hx of transurethral resection of prostate History of esophagogastroduodenoscopy (EGD) H/O colonoscopy Hx of cataract extraction History of ankle surgery History of surgical removal of skin lesion History of hemorrhoidectomy History of appendectomy Family History Family History Father Prostate cancer Mother Parkinson disease Social History Social History Household Members Other:: Daughter and grand child Alcohol intake: former Patient Tobacco Use Status: Former Tobacco user Smoked in Last 30 Days: No Use of substances other than those prescribed or required for medical reasons: No Advance Directives: No Advance Directives Information Provided: Yes Do you have a plan to hurt others: No Plan Physical Exam Vital Signs: Vital Signs: Last Vital Signs Pulse 68 03/03/24 23:43 Resp 16 03/03/24 23:43 BP 149/94 H 03/03/24 23:43 Pulse Ox 97 03/03/24 23:43 O2 Del Method Room Air 03/03/24 23:43 BMI result Body Mass Index 25.3 Appearance: Alert. Oriented X3. No acute distress. Eyes: PERRLA, No Nystagmus ENT: Pharynx normal. Oral Mucosa moist Neck: Normal inspection. Neck supple. CVS: Normal heart rate and rhythm. Pulses normal. Respiratory: No respiratory distress. Equal air entry bilateral, no wheezing/rales/rhonchi Abdomen: Soft and nontender. Bowel sounds are present, no mass palpable, no CVA tenderness small right scrotal blood vessel oozing Skin: Skin warm and dry. Normal skin color. Normal skin turgor. Extremities: No lower extremity edema. No calf tenderness Neuro: Oriented X 3. No motor deficit. No sensory deficit.No cerebellar signs , cranial nerves II-XII intact Medications Administered Discontinued Medications Generic Name Dose Route Start Last Admin Trade Name Nicole PRN Reason Stop Dose Admin Silver Nitrate 1 appl 03/04/24 00:05 03/04/24 00:30 Silver Nitrate Applicator Stick..Ea. TOPICAL 03/04/24 00:06 Not Given ONCE ONE Medical Decision Making Medical Decision Making [facility] Narrative: Patient with minor oozing from superficial vein of the scrotum bleeding stopped afte cauterization with silver nitrate Lab Data [facility] Lab Attestation statement: I reviewed the patient's lab results. 03/04/24 00:28 03/04/24 00:28 Labs: Lab Results 03/04/24 Range/Units 00:28 WBC 7.1 (4.8-10.8) X10*3/uL RBC 4.48 L (4.60-5.80) X10*6/uL Hgb 14.5 (14.0-18.0) g/dl Hct 43.1 (42.0-52.0) % MCV 96.2 (80.0-98.0) fL MCH 32.4 (27.0-33.0) pg MCHC 33.6 (31.0-36.0) g/dl RDW 12.7 (11.0-16.0) % Plt Count 223 (160-400) X10*3/uL MPV 10.1 (9.4-12.4) fL Immature Gran % (Auto) 0.3 (0.0-0.4) % Neut % (Auto) 47.6 (45-73) % Lymph % (Auto) 41.2 H (20-40) % [place] % (Auto) 8.8 (2-11) % Eos % (Auto) 1.8 (0-4) % Baso % (Auto) 0.3 (0-2) % Lymph # (Auto) 2.9 (1.2-4.9) X10*3/uL [place] # (Auto) 0.6 (0.1-1.2) X10*3/uL Eos # (Auto) 0.1 (0.0-0.4) X10*3/uL Baso # (Auto) 0.0 (0.0-0.2) X10*3/uL Abs Immat Gran (auto) 0.02 (0.00-0.03) X10*3/uL Absolute Neuts (auto) 3.4 (2.0-8.3) x10*3/uL Absolute Nucleated RBC 0.000 (0.0-0.012) X10*3/uL Nucleated RBC % (auto) 0.0 (0.0-0.2) /100WBC Sodium 140 (135-145) mmol/L Potassium 4.7 (3.3-5.1) mmol/L Chloride 107 (96-108) mmol/L Carbon Dioxide 28 (22-29) mmol/L Anion Gap 10 L (12-20) BUN 9 (9-16) mg/dL Creatinine 0.81 (0.5-1.4) mg/dL Estim Creat Clear Calc 75.1 Estimated GFR > 60 Random Glucose 110 (60-115) mg/dL Calcium 9.1 D (8.4-10.2) mg/dL Total Bilirubin 0.3 (0.0-1.0) mg/dL AST 30 (5-37) U/L ALT 23 (0-40) U/L Alkaline Phosphatase 72 (39-117) U/L Troponin I High Sens 9.3 (<3.5-35.0) ng/L Total Protein 6.8 (6.5-8.0) g/dL Albumin 4.0 (3.5-5.0) g/dL Lipase 23 (8-78) U/L Independent Interpretation I performed an independent interpretation of an: EKG Interpretation: Normal sinus rhythm heart rate 65 beats per minute normal interval normal axis no acute ST-T changes no acute ischemia Discharge Plan Discharge Clinical Impression: Bleeding from varicose vein, Chest pain Patient Disposition: Home, Self-Care Instructions: Chest Pain (DC), Acute Wounds (ED) Additional Instructions: Local care as advised Follow with your 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/PCP for further management Prescriptions: No Action albuterol sulfate [Ventolin HFA] 90 mcg/actuation Hfa Aerosol Inhaler 2 puff INHALATION Q4-6H PRN (Reason: Wheezing) lidocaine 5 % adhesive patch,medicated 1 patch topical DAILY Qty: 30 0RF Rx Instructions: leave on most painful area for up to 12 hrs Gaviscon Extra Strength 254-237.5 mg/5 mL suspension 10 ml PO QID PRN (Reason: dyspepsia) Qty: 355 0RF pantoprazole 40 mg tablet,delayed release (DR/EC) 40 mg PO DAILY Qty: 30 0RF albuterol sulfate 2.5 mg /3 mL (0.083 %) solution for nebulization 2.5 mg inhalation QID PRN (Reason: Wheezing) atorvastatin 80 mg tablet 80 mg PO DAILY losartan 100 mg tablet 100 mg PO DAILY aspirin 81 mg tablet,delayed release (DR/EC) 81 mg PO DAILY multivitamin Tablet 1 tab PO DAILY diclofenac sodium 1 % gel 1 g topical BID PRN amitriptyline 25 mg tablet 25 mg PO DAILY sildenafil 100 mg tablet 100 mg PO DAILY PRN Rx Instructions: administer 30 minutes to 4 hours before activity furosemide [Lasix] 20 mg tablet 20 mg PO DAILY metformin 500 mg tablet extended release 24 hr 500 mg PO DAILY pantoprazole 40 mg tablet,delayed release (DR/EC) 40 mg PO DAILY (DME) lancets [TRUEplus Lancets] 33 gauge misc See Rx Instructions topical .MEDSUPPLY Qty: 100 Rx Instructions: As directed (DME) FreeStyle Lite Strips Strip See Rx Instructions Not Applicable BID Qty: 10 Rx Instructions: As directed nitroglycerin 0.4 mg tablet, sublingual 0 mg sublingual tadalafil 5 mg tablet 5 mg PO DAILY 90 Days Qty: 90 1RF Rx Instructions: BIN [id number] [facility] Group DR33 metoprolol tartrate 25 mg tablet 37.5 mg PO DAILY hydrocortisone acetate [Anucort-HC] 25 mg suppository 25 mg TN BID PRN (Reason: hemorrhoid pain) Qty: 24 2RF Print Language: [place]
[2024-03-04 00:34] LABS: MANUAL DIFF FLAG NO
[2024-03-04 00:35] LABS: Basophils Percent Auto 0.3 % (0-2); Eosinophils Absolute Auto 0.1 X10*3/uL (0.0-0.4); Eosinophils Percent Auto 1.8 % (0-4); Hematocrit 43.1 % (42.0-52.0); Hemoglobin 14.5 g/dl (14.0-18.0); Imm Gran Abs Auto 0.02 X10*3/uL (0.00-0.03); Imm Gran Pct Auto 0.3 % (0.0-0.4); Lymphocytes Absolute Auto 2.9 X10*3/uL (1.2-4.9); Lymphocytes Percent Auto 41.2 % (20-40); Mean Corpuscular HGB Conc 33.6 g/dl (31.0-36.0); Mean Corpuscular Hemoglobin 32.4 pg (27.0-33.0); Mean Corpuscular Volume 96.2 fL (80.0-98.0); Mean Platelet Volume 10.1 fL (9.4-12.4); Monocytes Absolute Auto 0.6 X10*3/uL (0.1-1.2); Monocytes Percent Auto 8.8 % (2-11); Neutrophils Absolute Auto 3.4 x10*3/uL (2.0-8.3); Neutrophils Percent Auto 47.6 % (45-73); Platelet Count 223 X10*3/uL (160-400); Red Blood Count 4.48 X10*6/uL (4.60-5.80); Red Cell Distribution Width 12.7 % (11.0-16.0); White Blood Count 7.1 X10*3/uL (4.8-10.8)
[2024-03-04 00:49] LABS: Alanine Aminotransferase 23 U/L (0-40); Alkaline Phosphatase 72 U/L (39-117); Anion Gap 10 (12-20); Aspartate Amino Transferase 30 U/L (5-37); Bilirubin Total 0.3 mg/dL (0.0-1.0); Blood Urea Nitrogen 9 mg/dL (9-16); Calcium 9.1 mg/dL (8.4-10.2); Carbon Dioxide 28 mmol/L (22-29); Chloride 107 mmol/L (96-108); Creatinine Clr Calc Pharmacy 75.1; Estimated Glomerular Filt Rate > 60; Glucose Random 110 mg/dL (60-115); Lipase 23 U/L (8-78); Potassium 4.7 mmol/L (3.3-5.1); Sodium 140 mmol/L (135-145); Total Protein 6.8 g/dL (6.5-8.0)
[2024-03-04 00:55] LABS: Troponin-I High Sensitivity 9.3 ng/L (<3.5-35.0)
[2024-03-04 01:40] VITALS: BP 149/94; PULSE 68; RESP 16; TEMP 36.7; O2SAT 97
--- OUTSIDE RECORDS SUMMARY | 2024-03-06 12:14 | XMS_ITS | Data Portability ---
Author Organization [employer] [employer] [facility] [employer] Address [address] [place] [phone] Care Team Providers Care Quantitative Equity Head Name Role Phone HIM CCA OTHER Assessment Encounter Date Assessment Date Assessment LastModified by Organization Details LastModified Time 09/01/2023 09/01/2023 Mr. Shelton Davis is a 78oM w/ a PmHx of HTN and HLD who is seen today for further evaluation of musculoskeletal pain after a fall. Mr. Davis reports that on Monday he tripped in his bathroom and fell backwards, hitting his head and upper back. He presented to the ED where he reportedly had imaging done without injur and was discharged to home. He endorses ongoing upper back pain and reports that it is painful for him to walk and move around, though he is able to do so. NSAIDs usually bother his stomach so he has been taking tylenol and occasional oxycodone. VSS. 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 No midline neck tenderness. Will give a dose of IM toradol for acute pain. Anticipate soreness will quickly improve and encouraged to use heat/ice, rest, and OTC medications. Primary team, Mr. Davis would benefit from a check in over the next week or so to make sure he's improving. [email or web address] Not available 09/01/2023 13:00:34 Plan of Treatment Reminders Order Date Submit Date Provider Last Modified By Organization Details Last Modified Time Details Appointments None recorded. Lab None recorded. Referral None recorded. Procedures None recorded. Surgeries None recorded. Imaging None recorded. Medication Orders ketorolac 30 mg/mL injection solution 2023 024 [email or web address] Not available 13:00:51 Patient TargetsNo targets recorded. Patient InstructionsNo instructions recorded. Reason for Referral None Reported. Medical Equipment None Reported. Medications Name Sig Start Date Stop Date Status Note LastModified by Organization Details LastModified Time multivitamin tablet TAKE 1 TABLET BY MOUTH EVERY DAY IN THE MORNING active Not Available Not Available No t Available atorvastatin 80 mg tablet TAKE 1 TABLET BY MOUTH EVERY DAY active Not Available Not Available No t Available Anucort-HC 25 mg suppository INSERT 1 SUPPOSITORY RECTALLY TWICE DAILY NEEDED FOR HEMORRHOIDS (PAIN) active Not Available Not Available No t Available sumatriptan 50 mg tablet TAKE 1 TABLET BY MOUTH AT ONSET OF MIGRAINE. MAY REPEAT ONCE AFTER 2 HOURS IF NEEDED AT LEAST 2 HOURS BETWEEN DOSES active Not Available Not Available No t Available fluocinonide 0.05 % topical ointment APPLY TOPICALLY TO THE AFFECTED AREA(S) OF THE ARMS TWICE DAILY FOR 2 WEEKS, STOP FOR 1 WEEK, THEN REPEAT NEEDED active Not Available Not Available No t Available aspirin 81 mg tablet,delay ed release TAKE 1 TABLET BY MOUTH EVERY DAY active Not Available Not Available No t Available amitriptylin e 25 mg tablet TAKE 1 TABLET BY MOUTH EVERY DAY AT BEDTIME active Not Available Not Available No t Available Proctozone-H C 2.5 % topical cream perineal applicator INSERT RECTALLY TWICE DAILY active Not Available Not Available Not Available pantoprazole 40 mg tablet,delay ed release TAKE 1 TABLET BY MOUTH TWICE DAILY active Not Available Not Available No t Available lansoprazole 30 mg capsule,anni yed release TAKE 1 CAPSULE BY MOUTH TWICE DAILY active Not Available Not Available No t Available timolol maleate 0.5 % eye drops PLACE 1 DROP IN THE RIGHT EYE EVERY DAY IN THE MORNING active Not Available Not Available No t Available metformin ER 500 mg tablet,exten ded release 24 hr TAKE 1 TABLET BY MOUTH DAILY IN THE EVENING WITH FOOD active Not Available Not Available No t Available Ventolin HFA 90 mcg/actuatio n aerosol inhaler INHALE 2 PUFFS EVERY 4 TO 6 HOURS NEEDED SHORTNESS OF BREATH / FOR WHEEZING active Not Available Not Available No t Available tadalafil 5 mg tablet TAKE 1 TABLET BY MOUTH DAILY FOR SEXUAL ACTIVITY active Not Available Not Available No t Available metoprolol tartrate 25 mg tablet TAKE 1 AND 1/2 TABLETS BY MOUTH EVERY DAY active Not Available Not Available No t Available diclofenac 1 % topical gel APPLY 2 GRAMS TO AFFECTED AREA(S) TWICE DAILY NEEDED active Not Available Not Available No t Available Vitals Date Recorded Oxygen saturation Oxygen saturation in Arterial blood by Pulse oximetry Respiratory rate Body temperature Heart rate Systolic blood pressure Diastolic blood pressure Provider Name and Address Organization Details Last Updated DateTime 99 % 99 % 16 /min 98.1 [degF] 67 /min 132 mm[Hg] 80 mm[Hg] Not Available [facility] - production 12:49:57 Social History None recorded. Functional Status None recorded. Mental Status None recorded. Family History Nothing Reported. Medical History No medical history recorded. Past Encounters Encounter ID Performer Location Encounter Start Date Encounter Closed Date Diagnosis/Indication Diagnosis SNOMED-CT Code Diagnosis ICD10 Code [id number] Destiny Patel MD [facility] [address] [place] [address] 09/01/2023 12:46:34 11/21/2023 14:15:14 Muscle pain 06517040 M79.10 Health Concerns Section Related Observation LastModified by Organization Detai ls LastModified Time None Recorded Concern Status LastModified by Organization Details LastModified Time None Recorded Advance Directives Directive None Recorded Payers Encounter Date Sequence Insurance Name Policy Number Policy Leblanc Covered Member ID Leblanc Member ID Guarantor Name 09/01/2023 1 [facility] - DOS ON OR AFTER 2022 - DUAL ELIGIBLE - LONG-TERM OPTIONS AND ONE CARE (MEDICARE REPLACEMENT/ADV ANTAGE - HMO) Shelton Davis [id number] Shelton Davis Notes Date Note Type Note Provider Name and Address Organization Details Recorded Time 09/01/2023 text/html HPI: ROSSY is a very pleasant 78 Micronesian speaking y/o male with a PMH of, but not limited to: DM II, anxiety, depression, HTN, asthma, OA, GERD, HLD, cardiomyopathy, cervical spondylosis, lower back pain, lumbar disc degeneration, and hx CVA. ROSSY reports that he fell in his bathroom this past Monday. He had a +head strike without LOC and additional injuries to his upper back, neck, R shoulder, and R elbow. He reports significant bruising/swelling to his shoulder and elbow, but no open wounds. ROSSY presented to [facility] on the day of the fall for assessment. He had a CT of the head and multiple Xrays. All imaging was negative and ROSSY was subsequently sent home. Today, ROSSY reports increased neck and upper back pain, which is causing him to have difficulty sleeping. He denies CP, SOB, fevers, headaches, visual disturbances, dizziness, or N/T to upper/lower extremities. He is walking without difficulty, but ? must go slowly due to the pain.? MBR is requesting an [facility] in-home visit today for increased pain that is not being well managed with icy hot or Tylenol. This CRU RN assures MBR that a referral will be placed on his behalf. After confirming MBRs address and phone number on file, MBR is strongly encouraged to call 911 for any new or worsening symptoms. MBR understands and will do so. MBR can be reached at [phone]. .................. .................. .................. .................. .................. .................. .................. ............... [facility] Nurse Triage Notes (Rosy Corona): Comments: CRC RN did not require any additional information to process this visit. .................. .................. .................. .................. .................. .................. .................. ............... Cattle Examiner Note From Hitesh Araiza: Dispatched to the call address for the male with pain. Pt states he had a mechanical fall earlier in the week and went to the ED. Pt was cleared from ED and discharged home. He states he has been taking Tylenol for the pain but it has not been working that well. He states he he doesn't normally take NSAIDs as they tend to upset his stomach. Pt denies any kidney disease, taking blood thinners, or GI bleeding/ulcers. Pt complaints of left shoulder/neck pain along with mid back pain.Pt was found opening door, CAOx4, airway open and patent, breathing non labored, able to speak in full sentences, -JVD, -HEENT, skin PWD with good turgor, abd soft non tender/distended, pupils PERRL, +CMSx4, Pt with full range of motion and various bruises over the areas of complaint in various stages of healing. Lungs CTA, A-febrile. [facility] consulted. Pt given 30mg IM Ketorolac (L deltoid). Red flags discussed. ALL times are approx. .................. .................. .................. .................. .................. .................. .................. ............... Disposition: Fulfilled Destiny Patel MD [address] [facility],[address], [place], [address], [facility] - [facility] 11/20/2023 19:41:13
--- OUTSIDE RECORDS SUMMARY | 2024-03-06 12:14 | XMS_ITS ---
Author Organization [facility] Address [address] [place] [address] Care Team Providers Care Supervisor Securities Vault Name Role Phone Dawson Millard MD, [place] Primary Care Provide r Glenn Thompson Jr Unavailable REASON FOR VISIT Needs different RX sent MEDICATIONS Medication SIG (Take, Route, Frequency, Duration) Notes Start Date End Date Status Pantoprazole Sodium 40 MG 1 tablet Orall y Once a day for 30 day(s) 11/24/2023 Active Encounters Encounter Location Date Provider Diagnosis [facility] [address] [place] [phone] 11/24/2023 Glenn Monroy Jr Gastroesophageal reflux disease [...]
--- OUTSIDE RECORDS SUMMARY | 2024-03-06 12:14 | XMS_ITS ---
Author Organization [facility] Address [address] [place] [address] Care Team Providers Care Quitline Counselor Name Role Phone Dawson Millard MD, [place] Primary Care Provide iker Monroy Jr, Glenn Unavailable [phone] REASON FOR VISIT Abdominal pain MEDICATIONS Medication SIG (Take, Route, Frequency, Duration) Notes Start Date End Date Status Pantoprazole Sodium 40 MG 1 tablet Orall y Once a day for 30 days 11/24/2023 Active Encounters Encounter Location Date Provider Diagnosis [facility] [address] [place] [phone] 11/28/2023 Glenn Monroy Jr PLAN OF TREATMENT Medication Medication Name Sig Start Date Stop Date Notes Pantoprazole Sodium 40 MG 1 tablet Orall y Once a day for 30 days 11/24/2023
--- OUTSIDE RECORDS SUMMARY | 2024-03-06 12:14 | XMS_ITS | Patient Health Record ---
Author Organization [facility] Address [address] [place] [address] Care Team Providers Care Drywall Contractor Name Role Phone Dawson Millard MD, Clayton [...] Blood Reviewed date:09/22/2023 03:04:56 PM Interpretation: Performing Lab:[address] [id number] Notes/Report: Glucose, Whole Blood 106 60-115 mg/dL METER # : [id number] Pathology Reviewed date:10/05/2023 11:07:51 AM Interpretation: Performing Lab:[address] [address] Notes/Report: REASON FOR REFERRAL No Information MEDICATIONS [...] Problem Colon cancer screening (Z12.11) Active confirmed 480147441 Problem Epigastric pain (R10.13) Active confirmed 82986600 Problem Gastro-esophageal reflux disease without esophagitis (K21.9) Active confirmed Gastro-esophag eal reflux disease without esophagitis (313842957) Problem Personal history of colonic polyps (Z86.010) Active confirmed 977772189 Problem Irritable bowel syndrome with diarrhea (K58.0) Active confirmed 454253723 Problem Generalized abdominal pain (R10.84) Active confirmed 969142031 Problem Gastroesophageal reflux disease without esophagitis (K21.9) Active confirmed 928527357 Problem History of colon polyps (Z86.010) Active confirmed History of polyp of colon (216837289) Problem Gastroesophageal reflux disease with esophagitis without hemorrhage (K21.00) Active confirmed 009452320 VITAL SIGNS Temperature 96.9 degrees Fahrenheit 08/14/2023 Blood pressure diastolic 00 mm Hg 08/14/2023 Height 67 in 08/14/2023 Blood pressure systolic 000 mm Hg 08/14/2023 Weight 162 lb 4 oz lbs 08/14/2023 BMI 25.41 kg/m2 08/14/2023 Encounters Encounter Location Date Provider Diagnosis [facility] Outpatient [address] [place] [phone] 09/22/2023 Glenn Monroy Jr Gastro-esophageal reflux disease without esophagitis K21.9 [facility] [address] [place] [address] 09/13/2023 Glenn Monroy Jr [facility] [address] [facility] [place] [address] 08/14/2023 Glenn Monroy Jr Gastroesophageal reflux disease without esophagitis K21.9 and Irritable bowel syndrome with diarrhea K58.0 [facility] [address] [place] [address] 03/17/2023 Glenn Monroy Jr Gastroesophageal reflux disease with esophagitis without hemorrhage K21.00 [facility] [address] [facility] [place] [address] 05/01/2023 Glenn Monroy Jr [facility] [address] [facility] [place] [address] 09/18/2023 Glenn Monroy Jr [facility] [address] [facility] [place] [address] 09/20/2023 Glenn Monroy Jr [facility] [address] [facility] [place] [address] 10/05/2023 Glenn Monroy Jr [facility] [address] [facility] [place] [address] 11/24/2023 Glenn Monroy Jr Gastroesophageal reflux disease without esophagitis K21.9 [facility] [address] [facility] [place] [address] 11/28/2023 Glenn Monroy Jr ASSESSMENTS Encounter Date [...] Insured Coverage Start Date Coverage End Date [facility] [address] Attn Claims CIPRIANO Julio [id number] ROBB PADRON Self - patient is the [...]
--- OUTSIDE RECORDS SUMMARY | 2024-03-06 12:14 | XMS_ITS ---
Author Organization [facility] Address [address] [place] [address] Care Team Providers Care Hydrate Thickener Operator Name Role Phone Dawson Millard MD, [place] Primary Care Provide r Glenn Thompson Jr Unavailable REASON FOR VISIT pathology Encounters Encounter Location Date Provider Diagnosis [facility] [address] [place] [address] 10/05/2023 Glenn Monroy Jr PLAN OF TREATMENT No Information
== END 2024-03-04 01:47 | disposition home or self-care (01) ==
PROVIDERS: Emergency Provider Internal Medicine; PCP Internal Medicine
DX: I83.891 Varicose veins of right lower extremity with other complications (principal); R07.89 Other chest pain; Z79.899 Other long term (current) drug therapy; Z87.891 Personal history of nicotine dependence
CPT/HCPCS: 36415; 80053; 83690; 84484; 85025; 93005; 99284

== ENCOUNTER → 2024-03-03 23:54 | Outpatient (BNV) | payer OTHER, SELFPAY | PROVIDERS: Emergency Provider Internal Medicine; PCP Internal Medicine; Visit Provider Internal Medicine Cardiovascular Disease | DX: R07.9 Chest pain, unspecified (principal); R94.31 Abnormal electrocardiogram [ECG] [EKG] | CPT/HCPCS: 93010 ==

== ENCOUNTER 2024-03-11 08:36 | Emergency (ER) | payer OTHER, SELFPAY ==
--- NOTE | ~2024-03-11 | CT_ITS ---
EXAMINATION: CT CERVICAL SPINE WITHOUT CONTRAST CLINICAL INFORMATION: Fall, head strike, pain. COMPARISON: 08/29/2023. TECHNIQUE: Spiral CT of the cervical spine was performed in axial plane without contrast. Sagittal, coronal, and thin section axial reformatted images were constructed from the axial data set. This CT examination was performed using dose optimization techniques as appropriate, variously including the following: *Automated exposure control *Adjustment of mA and/or kV according to patient size (this includes techniques or standardized protocols for targeted exams where dose is matched to indication/reason for exam; i.e. extremities or head) *Use of iterative reconstruction technique DLP: 325.43 mGy-cm FINDINGS: There is a minimal right convex scoliosis. There is straightening of the normal lordosis. There is no fracture, or evidence of traumatic subluxation. Alignment is anatomic. No subluxations. Mild degenerative disc changes are present with moderate changes at C5-6 and C6-7. Craniocervical junction, and C1-2 articulations are intact and normally aligned. No evidence of large disc herniation or central canal encroachment. Facet hypertrophy with uncinate spurring at C5-6 and C6-7 results in moderate to severe bilateral neural foraminal narrowing. There is no significant central canal narrowing. There is no discrete soft tissue abnormality. The prevertebral soft tissues appear normal. Mild to moderate calcification of the carotid bulbs bilaterally. Partially imaged thyroid is normal. Limited imaging of the left lung apex is clear. CT/CT cervical spine wo IV con IMPRESSION: 1. No CT evidence of acute cervical spine fracture or injury. 2. Degenerative spondylosis relatively confined to C5-6 and C6-7. Electronically signed by: Peter Briggs MD 03/11/2024 12:42 PM [facility]
--- NOTE | ~2024-03-11 | CT_ITS ---
EXAMINATION: CT ABDOMEN AND PELVIS WITH CONTRAST CLINICAL INFORMATION: Fall, left lower quadrant pain. COMPARISON: None available. TECHNIQUE: Multidetector volumetric images were obtained from the superior aspect of the liver through the pubic symphysis following administration 85 mL of Omnipaque 350 intravenous contrast. Sagittal and coronal reformatted images were obtained on the technologist's workstation. Oral contrast: No This CT examination was performed using dose optimization techniques as appropriate, variously including the following: *Automated exposure control *Adjustment of mA and/or kV according to patient size (this includes techniques or standardized protocols for targeted exams where dose is matched to indication/reason for exam; i.e. extremities or head) *Use of iterative reconstruction technique DLP: 811 mGy-cm Examination of the solid viscera is limited without IV contrast. FINDINGS: LUNG BASES: Imaged lung bases demonstrate hypoventilatory changes, dependent type atelectasis, and mild chronic changes, likely related to underlying emphysematous lung disease. There is cardiomegaly, moderate. There is a probable type I hiatus hernia. There are no effusions. LIVER, GALLBLADDER, AND BILIARY TREE: The liver is normal in size, shape, and attenuation. No focal hepatic lesion or biliary ductal dilatation is present. The gallbladder is unremarkable with no evidence of radiopaque gallstones, gallbladder wall thickening, or obvious pericholecystic inflammatory changes. PANCREAS: Unremarkable. SPLEEN: Unremarkable. ADRENAL GLANDS: Mild left hyperplasia. The right is normal. KIDNEYS AND URETERS: The kidneys are normal in size, shape, and attenuation. No hydronephrosis, hydroureter, or calculi seen. No perinephric stranding. BLADDER: Unremarkable. GASTROINTESTINAL TRACT: -There is inflammation abutting a short segment of colon at the sigmoid/descending colonic junction, just abutting the left psoas muscle, with a prominent enhancing diverticulum, mild wall thickening, and pericolonic fat stranding. Findings are consistent with mild acute diverticulitis without complication. -There is mild to moderate diverticulosis of the sigmoid. -The remainder of the colon appears normal. -No rectal abnormality. -Small type I hiatus hernia suspected. The stomach and duodenum appear normal. -No small bowel abnormality. -No evidence of appendicitis. ABDOMINAL WALL: No significant hernia is appreciated. LYMPH NODES: Normal. VASCULAR: Mild to moderate calcific atheromatous changes of the aorta and iliac arteries. No aneurysm. PELVIC VISCERA: -Prostate is enlarged measuring 4.7 cm in diameter with a central TURP defect suspected. OSSEOUS STRUCTURES: -There are no fractures. There are no suspicious lytic or blastic bone lesions. -There are mild degenerative changes of the bilateral hip joints, SI joints, and spine. CT/CT abdomen pelvis w IV con IMPRESSION: 1. No acute posttraumatic abnormalities. 2. Mild acute diverticulitis without complication at the junction of the descending and sigmoid colon left lower quadrant. 3. Additional ancillary findings as discussed in the body of the report. Electronically signed by: Peter Briggs MD 03/11/2024 12:50 PM EST
--- NOTE | ~2024-03-11 | CT_ITS ---
EXAMINATION: CT HEAD WITHOUT CONTRAST CLINICAL INFORMATION: Fall, head strike and pain. COMPARISON: CT angiogram head 01/05/2024. CT head 08/29/2023. TECHNIQUE: Contiguous axial imaging was performed from the skull base to vertex without intravenous administration of contrast. This CT examination was performed using dose optimization techniques as appropriate, variously including the following: *Automated exposure control *Adjustment of mA and/or kV according to patient size (this includes techniques or standardized protocols for targeted exams where dose is matched to indication/reason for exam; i.e. extremities or head) *Use of iterative reconstruction technique DLP: 642.53 mGy-cm FINDINGS: There is no evidence of intracranial hemorrhage or extra-axial fluid collection. There is no mass effect, or edema. No CT evidence of acute territorial infarct. Ventricles, sulci, and cisterns are somewhat diffusely prominent, in keeping with age related cerebral and cerebellar involutional changes. No hydrocephalus. No midline shift. Negative hyperdense MCA sign. Negative insular ribbon sign. Numerous old lacunar type infarcts present in the bilateral anterior gangliocapsular regions. Rxuz-gl-bgzjlhtz changes of hypoattenuation within the supratentorial deep white matter, consistent with small vessel ischemic changes. Normal sella. Mild atheromatous calcification of the bilateral carotid siphons. Globes and orbital contents demonstrate lens replacements bilaterally. There is an old right orbital floor fracture. No extracranial soft tissue abnormalities. The paranasal sinuses, mastoid air cells, and tympanic cavities are normally aerated. No suspicious bony abnormalities. No acute fracture seen. CT/CT head/brain wo IV con IMPRESSION: 1. No acute intracranial abnormality. No fracture seen. 2. Stable age-related involutional and white matter findings. Electronically signed by: Peter Briggs MD 03/11/2024 12:37 PM [facility]
--- NOTE | 2024-03-11 08:38 | ED_ITS ---
HPI - General Adult General Chief complaint: Fall Stated complaint: Fall no LOC/ Abdominal Pain Time Seen by Provider: 03/11/24 08:38 Source: patient, EMS and motor expert (all interactions with this patient were facilitated with an [facility] [place] funeral home director) Mode of arrival: EMS Limitations: language barrier (all interactions with this patient were facilitated with an [facility] [place] funeral home director) History of Present Illness ED Provider: Shira Robison PA-C HPI narrative: Patient is a 79 year old assigned male at with a history of asthma, CVA, DM, non-ishemic cardiomyopathy, fibromyalgia, BPH, erectile dysfunction, and hemorrhoids presenting to the emergency department today with left lower abdominal pain. Patient states that he has been having left lower abdominal pain over the last 2 days and the pain was so bad this morning that he had a mechanical fall to the ground. Patient states that he did not hit his head or have any loss of consciousness with the incident. Patient denies any dizziness, lightheadedness, nausea, vomiting, fever, chills, blurry vision, double vision, loss of vision, chest pain, difficulty breathing, shortness of breath, back pain, night sweats, pain with urination, increased urinary frequency, increased urinary urgency, blood in his urine or stool, syncope or a near syncopal episode, bowel incontinence, bladder incontinence, or any other complaints at this time. Onset (ago): day(s) (2 (for the abdominal pain)) Relieving factors: none Exacerbating factors: none Associated symptoms: denies other symptoms Treatments prior to arrival: none Related Data Home Medications ?Medication ?Instructions ?Recorded ?Confirmed amitriptyline 25 mg tablet 25 mg PO DAILY 01/28/20 09/22/23 furosemide 20 mg tablet (Lasix) 20 mg PO DAILY 01/28/20 09/22/23 sildenafil 100 mg tablet 100 mg PO DAILY PRN 01/28/20 12/20/22 albuterol sulfate 2.5 mg/3 mL 2.5 mg inhalation QID PRN Wheezing 06/11/20 12/20/22 (0.083 %) solution for nebulization aspirin 81 mg tablet,delayed 81 mg PO DAILY 06/11/20 09/22/23 release atorvastatin 80 mg tablet 80 mg PO DAILY 06/11/20 09/22/23 diclofenac sodium 1 % topical gel 1 g topical BID PRN 06/11/20 12/20/22 losartan 100 mg tablet 100 mg PO DAILY 06/11/20 09/22/23 multivitamin 1 tab PO DAILY 06/11/20 12/20/22 albuterol sulfate 90 mcg/actuation 2 puff inhalation Q4-6H PRN 11/13/20 12/20/22 aerosol inhaler (Ventolin HFA) Wheezing blood sugar diagnostic (FreeStyle #10 ea 06/15/21 12/20/22 Lite Strips) lancets 33 gauge (TRUEplus Lancets) #100 ea 06/15/21 12/20/22 metformin 500 mg tablet,extended 500 mg PO DAILY 06/15/21 09/22/23 release 24 hr pantoprazole 40 mg tablet,delayed 40 mg PO DAILY 06/15/21 09/22/23 release nitroglycerin 0.4 mg sublingual 0 mg sublingual 12/17/21 12/20/22 tablet metoprolol tartrate 25 mg tablet 37.5 mg PO DAILY 08/26/22 09/22/23 Previous Rx's ?Medication ?Instructions ?Recorded hydrocortisone acetate 25 mg 25 mg ID BID PRN hemorrhoid pain 11/21/22 rectal suppository (Anucort-HC) #24 ea tadalafil 5 mg tablet 5 mg PO DAILY sexual activity 90 12/20/22 days #90 tabs lidocaine 5 % topical patch 1 patch topical DAILY #30 ea 08/29/23 aluminum hydrox-magnesium carb 254 10 ml PO QID PRN dyspepsia #355 mL 11/14/23 mg-237.5 mg/5 mL oral suspension (Gaviscon Extra Strength) pantoprazole 40 mg tablet,delayed 40 mg PO DAILY #30 tabs 11/14/23 release amoxicillin 875 mg-potassium 1 tab PO BID 10 days #20 tabs 03/11/24 clavulanate 125 mg tablet Allergies Allergy/AdvReac Type Severity Reaction Status Date / Time lisinopril [LISINOPRIL] Allergy Intermediate COUGH Verified 03/11/24 08:44 oxycodone [From PERCOCET] Allergy Intermediate VOMITING Verified 03/11/24 08:44 alprazolam [From XANAX] AdvReac Intermediate VOMITING Verified 03/11/24 08:44 gabapentin AdvReac Abdominal Verified 03/11/24 08:44 Pain Review of Systems 2 Constitutional: Constitutional: Reports no additional constitutional complaints, Denies chills, Denies fever(s) and Denies night sweats Eyes: Eyes: Reports no additional eye complaints, Denies blurry vision, Denies change in vision, Denies diplopia, Denies eye discharge, Denies loss of vision and Denies eye pain ENT: Denies dizziness Cardiovascular: Cardiovascular: Reports no additional cardiovascular complaints, Denies chest pain, Denies lightheadedness, Denies Loss of Consciousness and Denies dyspnea Respiratory: Respiratory: Reports no additional respiratory complaints and Denies dyspnea Gastrointestinal: Gastrointestinal: Reports no additional gastrointestinal complaints, Reports abdominal pain, Denies melena, Denies hematochezia, Denies change in bowel habits and Denies change in stool character Genitourinary: Genitourinary: Reports no additional male genitourinary complaints, Denies hematuria, Denies oliguria, Denies difficulty urinating, Denies dysuria, Denies urinary frequency, Denies urinary hesitancy, Denies urinary incontinence and Denies urinary urgency Musculoskeletal: Musculoskeletal: Reports no additional musculoskeletal complaints, Denies numbness and Denies tingling Neurologic: Denies dizziness, Denies loss of vision, Denies numbness and Denies tingling Psychiatric: Psychiatric: Reports no additional psychiatric complaints Endocrine: Endocrine: Reports no additional endocrine complaints Hematologic/Lymphatic: Hematologic/Lymphatic: Reports no additional hematologic/lymphatic complaints Allergic/Immunologic: Allergic/Immunologic: Reports no additional allergic/immunologic complaints [facility] Past Medical History Attestation statement: The following information was validated with the patient. Source: old records reviewed and nursing notes reviewed Medical History Weak urinary stream Erectile dysfunction Bleeding hemorrhoids Diabetes mellitus Arteriosclerosis Cancer Pulmonary nodule Non-ischemic cardiomyopathy CVA (cerebral vascular accident) Arthritis Asthma GERD (gastroesophageal reflux disease) Elevated cholesterol Diastolic dysfunction Surgical History Hx of transurethral resection of prostate History of esophagogastroduodenoscopy (EGD) H/O colonoscopy Hx of cataract extraction History of ankle surgery History of surgical removal of skin lesion History of hemorrhoidectomy History of appendectomy Family History Family History Father Prostate cancer Mother Parkinson disease Social History Social History Household Members Other:: Daughter and grand child Alcohol intake: former Patient Tobacco Use Status: Former Tobacco user Smoked in Last 30 Days: No Use of substances other than those prescribed or required for medical reasons: No Advance Directives: No Advance Directives Information Provided: Yes Do you have a plan to hurt others: No Plan Physical Exam ED Vital Signs: Vital Signs - 24 hr 03/11/24 09:09 03/11/24 14:36 Temperature 98.7 F 98.5 F Pulse Rate 74 76 Respiratory Rate 14 19 Blood Pressure 130/77 132/78 Pulse Oximetry 96 98 Oxygen Delivery Method Room Air Room Air BMI result Body Mass Index 27.7 Const General: cooperative, no acute distress, alert and awake Nutritional Appearance: well nourished Orientation/consciousness: patient oriented x3 Limitations: no limitations HENMT Head: Yes normal to inspection and Yes atraumatic Ears: hearing grossly normal bilaterally and external ears normal General nose exam: Normal external nose present, no nasal discharge noted and no epistaxis Face and sinus: Yes normal facial exam, No abrasion and No laceration Mouth: Normal oral and palatal mucosa present, no drooling and no muffled voice Eyes General: appearance normal, both eyes and all related structures Periorbital: periorbital findings normal Eyelids: Yes eyelids normal Conjunctivae: conjunctivae normal Pupils: Equal, round and reactive pupils present EOM: EOMs intact bilaterally Neck Neck: Yes normal visual inspection, Yes full ROM and Yes no lymphadenopathy Chest Chest palpation & inspection: normal inspection of the chest Resp Effort & Inspection: normal respiratory effort and able to speak in complete sentences GI Inspection: Yes normal to inspection Palpation (GI): Soft to palpation, not firm, Tenderness to palpation present (GI) in the LLQ, no guarding and not rigid Neuro General: patient oriented x3 and moves all extremities Cranial nerves: Yes Equal, round and reactive pupils present Cognition (Neuro): normal cognition Extrem General: Yes normal to inspection, Yes full ROM and Yes capillary refill normal Psych Appearance: grossly normal Mental Status: mental status grossly normal Affect: normal affect Attitude: cooperative Thought process: Normal thought process present Thought content: Normal thought content present Insight: Good insight present (Psych) Medications Administered Discontinued Medications Generic Name Dose Route Start Last Admin Trade Name Freq PRN Reason Stop Dose Admin Iohexol 85 ml 12/16/24 10:36 03/11/24 10:37 Iohexol 350 Mg/Ml 100 Ml Infus..Btl IV 03/11/24 10:37 85 ml ONCE ONE Administration Medical Decision Making Medical Decision Making [facility] Narrative: Patient is a 79 year old assigned male at with a history of asthma, CVA, DM, non-ishemic cardiomyopathy, fibromyalgia, BPH, erectile dysfunction, and hemorrhoids presenting to the emergency department today with left lower abdominal pain. Patient's physical exam was as noted in the physical exam portion of this note. Patient's blood work showed an elevated WBC count of 14.8 but was otherwise unremarkable. Patient's CT head and c-spine showed no acute process. Patient's CT abd/pelvis showed diverticulitis without complication. I explained my physical exam findings as well as all test results to the patient. I answered all questions asked by the patient. Patient able to tolerate PO in the department and is a good candidate for PO ABX at home. I stressed the importance of the patient taking his medication as directed (either prescribed or as the over the counter packaging recommends). I stressed the importance of the patient following up with his primary care provider. I stressed the importance of the patient returning to the emergency department immediately if his symptoms were to worsen or if he were to develop any dizziness, shortness of breath, difficulty breathing, chest pain, blurry vision, loss of vision, nausea, vomiting, abdominal pain, fever, chills, back pain, or any other complaints. Patient verbalized agreement and understanding with this treatment plan and discharge. Differential Diagnosis Differential Diagnoses: The differential diagnosis associated with the presentation includes Diverticulitis Abdominal pain Fall Admission/Observation Consideration of admission/observation: Escalation of care including admission/observation considered Patient would have been admitted to the hospital had his work up had any findings where hospital admission was appropriate and his clinical presentation warranted hospital admission. Lab Data [facility] Lab Attestation statement: I reviewed the patient's lab results. My interpretation of these results are in the MDM Rationale portion of this note. 03/11/24 09:18 03/11/24 09:18 Labs: Lab Results 03/11/24 Range/Units 09:18 WBC 14.8 H (4.8-10.8) X10*3/uL RBC 4.54 L (4.60-5.80) X10*6/uL Hgb 14.9 (14.0-18.0) g/dl Hct 43.6 (42.0-52.0) % MCV 96.0 (80.0-98.0) fL MCH 32.8 (27.0-33.0) pg MCHC 34.2 (31.0-36.0) g/dl RDW 12.6 (11.0-16.0) % Plt Count 218 (160-400) X10*3/uL MPV 10.2 (9.4-12.4) fL Immature Gran % (Auto) 0.5 H (0.0-0.4) % Neut % (Auto) 82.5 H (45-73) % Lymph % (Auto) 9.8 L (20-40) % [facility] % (Auto) 6.6 (2-11) % Eos % (Auto) 0.4 (0-4) % Baso % (Auto) 0.2 (0-2) % Lymph # (Auto) 1.5 (1.2-4.9) X10*3/uL [facility] # (Auto) 1.0 (0.1-1.2) X10*3/uL Eos # (Auto) 0.1 (0.0-0.4) X10*3/uL Baso # (Auto) 0.0 (0.0-0.2) X10*3/uL Abs Immat Gran (auto) 0.08 H (0.00-0.03) X10*3/uL Absolute Neuts (auto) 12.2 H (2.0-8.3) x10*3/uL Absolute Nucleated RBC 0.000 (0.0-0.012) X10*3/uL Nucleated RBC % (auto) 0.0 (0.0-0.2) /100WBC Sodium 138 (135-145) mmol/L Potassium 3.8 (3.3-5.1) mmol/L Chloride 104 (96-108) mmol/L Carbon Dioxide 26 (22-29) mmol/L Anion Gap 12 (12-20) BUN 7 L (9-16) mg/dL Creatinine 0.84 (0.5-1.4) mg/dL Estim Creat Clear Calc 73.5 Estimated GFR > 60 Random Glucose 141 H (60-115) mg/dL Calcium 8.6 (8.4-10.2) mg/dL Total Bilirubin 0.9 (0.0-1.0) mg/dL AST 23 (5-37) U/L ALT 18 (0-40) U/L Alkaline Phosphatase 95 (39-117) U/L Total Protein 6.9 (6.5-8.0) g/dL Albumin 3.9 (3.5-5.0) g/dL Independent Interpretation I performed an independent interpretation of an: CT Scan Interpretation: My interpretation is in agreement with the radiologist's impression of these imaging studies. L EXAMINATION: CT ABDOMEN AND PELVIS WITH CONTRAST CLINICAL INFORMATION: Fall, left lower quadrant pain. COMPARISON: None available. TECHNIQUE: Multidetector volumetric images were obtained from the superior aspect of the liver through the pubic symphysis following administration 85 mL of Omnipaque 350 intravenous contrast. Sagittal and coronal reformatted images were obtained on the technologist's workstation. Oral contrast: No This CT examination was performed using dose optimization techniques as appropriate, variously including the following: *Automated exposure control *Adjustment of mA and/or kV according to patient size (this includes techniques or standardized protocols for targeted exams where dose is matched to indication/reason for exam; i.e. extremities or head) *Use of iterative reconstruction technique DLP: 811 mGy-cm Examination of the solid viscera is limited without IV contrast. FINDINGS: LUNG BASES: Imaged lung bases demonstrate hypoventilatory changes, dependent type atelectasis, and mild chronic changes, likely related to underlying emphysematous lung disease. There is cardiomegaly, moderate. There is a probable type I hiatus hernia. There are no effusions. LIVER, GALLBLADDER, AND BILIARY TREE: The liver is normal in size, shape, and attenuation. No focal hepatic lesion or biliary ductal dilatation is present. The gallbladder is unremarkable with no evidence of radiopaque gallstones, gallbladder wall thickening, or obvious pericholecystic inflammatory changes. PANCREAS: Unremarkable. SPLEEN: Unremarkable. ADRENAL GLANDS: Mild left hyperplasia. The right is normal. KIDNEYS AND URETERS: The kidneys are normal in size, shape, and attenuation. No hydronephrosis, hydroureter, or calculi seen. No perinephric stranding. BLADDER: Unremarkable. GASTROINTESTINAL TRACT: -There is inflammation abutting a short segment of colon at the sigmoid/descending colonic junction, just abutting the left psoas muscle, with a prominent enhancing diverticulum, mild wall thickening, and pericolonic fat stranding. Findings are consistent with mild acute diverticulitis without complication. -There is mild to moderate diverticulosis of the sigmoid. -The remainder of the colon appears normal. -No rectal abnormality. -Small type I hiatus hernia suspected. The stomach and duodenum appear normal. -No small bowel abnormality. -No evidence of appendicitis. ABDOMINAL WALL: No significant hernia is appreciated. LYMPH NODES: Normal. VASCULAR: Mild to moderate calcific atheromatous changes of the aorta and iliac arteries. No aneurysm. PELVIC VISCERA: -Prostate is enlarged measuring 4.7 cm in diameter with a central TURP defect suspected. OSSEOUS STRUCTURES: -There are no fractures. There are no suspicious lytic or blastic bone lesions. -There are mild degenerative changes of the bilateral hip joints, SI joints, and spine. CT/CT abdomen pelvis w IV con IMPRESSION: 1. No acute posttraumatic abnormalities. 2. Mild acute diverticulitis without complication at the junction of the descending and sigmoid colon left lower quadrant. 3. Additional ancillary findings as discussed in the body of the report. Electronically signed by: Peter Briggs MD 03/11/2024 12:50 PM [facility] Dictated By: Peter Briggs MD Signed By: Electronically signed by Peter Briggs MD 03/11/24 1250 EXAMINATION: CT CERVICAL SPINE WITHOUT CONTRAST CLINICAL INFORMATION: Fall, head strike, pain. COMPARISON: 08/29/2023. TECHNIQUE: Spiral CT of the cervical spine was performed in axial plane without contrast. Sagittal, coronal, and thin section axial reformatted images were constructed from the axial data set. This CT examination was performed using dose optimization techniques as appropriate, variously including the following: *Automated exposure control *Adjustment of mA and/or kV according to patient size (this includes techniques or standardized protocols for targeted exams where dose is matched to indication/reason for exam; i.e. extremities or head) *Use of iterative reconstruction technique DLP: 325.43 mGy-cm FINDINGS: There is a minimal right convex scoliosis. There is straightening of the normal lordosis. There is no fracture, or evidence of traumatic subluxation. Alignment is anatomic. No subluxations. Mild degenerative disc changes are present with moderate changes at C5-6 and C6- 7. Craniocervical junction, and C1-2 articulations are intact and normally aligned. No evidence of large disc herniation or central canal encroachment. Facet hypertrophy with uncinate spurring at C5-6 and C6-7 results in moderate to severe bilateral neural foraminal narrowing. There is no significant central canal narrowing. There is no discrete soft tissue abnormality. The prevertebral soft tissues appear normal. Mild to moderate calcification of the carotid bulbs bilaterally. Partially imaged thyroid is normal. Limited imaging of the left lung apex is clear. CT/CT cervical spine wo IV con IMPRESSION: 1. No CT evidence of acute cervical spine fracture or injury. 2. Degenerative spondylosis relatively confined to C5-6 and C6-7. Electronically signed by: Peter Briggs MD 03/11/2024 12:42 PM [facility] Dictated By: Peter Briggs MD Signed By: Electronically signed by Peter Briggs MD 03/11/24 1242 EXAMINATION: CT HEAD WITHOUT CONTRAST CLINICAL INFORMATION: Fall, head strike and pain. COMPARISON: CT angiogram head 01/05/2024. CT head 08/29/2023. TECHNIQUE: Contiguous axial imaging was performed from the skull base to vertex without intravenous administration of contrast. This CT examination was performed using dose optimization techniques as appropriate, variously including the following: *Automated exposure control *Adjustment of mA and/or kV according to patient size (this includes techniques or standardized protocols for targeted exams where dose is matched to indication/reason for exam; i.e. extremities or head) *Use of iterative reconstruction technique DLP: 642.53 mGy-cm FINDINGS: There is no evidence of intracranial hemorrhage or extra-axial fluid collection. There is no mass effect, or edema. No CT evidence of acute territorial infarct. Ventricles, sulci, and cisterns are somewhat diffusely prominent, in keeping with age related cerebral and cerebellar involutional changes. No hydrocephalus. No midline shift. Negative hyperdense MCA sign. Negative insular ribbon sign. Numerous old lacunar type infarcts present in the bilateral anterior gangliocapsular regions. [id number] changes of hypoattenuation within the supratentorial deep white matter, consistent with small vessel ischemic changes. Normal sella. Mild atheromatous calcification of the bilateral carotid siphons. Globes and orbital contents demonstrate lens replacements bilaterally. There is an old right orbital floor fracture. No extracranial soft tissue abnormalities. The paranasal sinuses, mastoid air cells, and tympanic cavities are normally aerated. No suspicious bony abnormalities. No acute fracture seen. CT/CT head/brain wo IV con IMPRESSION: 1. No acute intracranial abnormality. No fracture seen. 2. Stable age-related involutional and white matter findings. Electronically signed by: Peter Briggs MD 03/11/2024 12:37 PM [facility] Dictated By: Peter Briggs MD Signed By: Electronically signed by Peter Briggs MD 03/11/24 1237 Radiology Impression Discussion of test interpretation with radiology: I have reviewed the radiologist's reading. Independent Historian Clinical information obtained from an independent historian. History obtained from or confirmed by: EMS (EMS provided additional history and confirmed the history provided by the patient.) Prescription Management I considered prescription management with: Antibiotic (patient prescribed an antibiotic for diverticulitis) Chronic Conditions Patient?s care impacted by: Diabetes Discharge Plan Discharge Clinical Impression: Diverticulitis Patient Disposition: Home, Self-Care Instructions: Diverticulitis (ED), Diverticulitis Diet (ED) Additional Instructions: Take your medication as directed. Follow the diet instructions as described. Follow up with your primary care provider. Return to the emergency department immediately if your symptoms worsen or if you develop any dizziness, shortness of breath, difficulty breathing, chest pain, blurry vision, loss of vision, nausea, vomiting, abdominal pain, fever, chills, back pain, or any other complaints. [place] la medicaci?n seg?n las indicaciones. Siga las instrucciones diet?massiel descritas. Cain un seguimiento con hernandez m?dico de cabecera. Acuda inmediatamente al servicio de urgencias si jazzmine s?ntomas empeoran o si presenta mareos, falta de aliento, dificultad para respirar, dolor tor?cico, visi?n borrosa, p?rdida de visi?n, n?useas, v?mitos, dolor abdominal, fiebre, escalofr?os, dolor de espalda o cualquier otra molestia. Prescriptions: New amoxicillin-pot clavulanate 875-125 mg tablet 1 tab PO BID 10 Days Qty: 20 0RF No Action albuterol sulfate [Ventolin HFA] 90 mcg/actuation Hfa Aerosol Inhaler 2 puff INHALATION Q4-6H PRN (Reason: Wheezing) lidocaine 5 % adhesive patch,medicated 1 patch topical DAILY Qty: 30 0RF Rx Instructions: leave on most painful area for up to 12 hrs Gaviscon Extra Strength 254-237.5 mg/5 mL suspension 10 ml PO QID PRN (Reason: dyspepsia) Qty: 355 0RF pantoprazole 40 mg tablet,delayed release (DR/EC) 40 mg PO DAILY Qty: 30 0RF albuterol sulfate 2.5 mg /3 mL (0.083 %) solution for nebulization 2.5 mg inhalation QID PRN (Reason: Wheezing) atorvastatin 80 mg tablet 80 mg PO DAILY losartan 100 mg tablet 100 mg PO DAILY aspirin 81 mg tablet,delayed release (DR/EC) 81 mg PO DAILY multivitamin Tablet 1 tab PO DAILY diclofenac sodium 1 % gel 1 g topical BID PRN amitriptyline 25 mg tablet 25 mg PO DAILY sildenafil 100 mg tablet 100 mg PO DAILY PRN Rx Instructions: administer 30 minutes to 4 hours before activity furosemide [Lasix] 20 mg tablet 20 mg PO DAILY metformin 500 mg tablet extended release 24 hr 500 mg PO DAILY pantoprazole 40 mg tablet,delayed release (DR/EC) 40 mg PO DAILY (DME) lancets [TRUEplus Lancets] 33 gauge misc See Rx Instructions topical .MEDSUPPLY Qty: 100 Rx Instructions: As directed (DME) FreeStyle Lite Strips Strip See Rx Instructions Not Applicable BID Qty: 10 Rx Instructions: As directed nitroglycerin 0.4 mg tablet, sublingual 0 mg sublingual tadalafil 5 mg tablet 5 mg PO DAILY 90 Days Qty: 90 1RF Rx Instructions: BIN [id number] [facility] [id number] metoprolol tartrate 25 mg tablet 37.5 mg PO DAILY hydrocortisone acetate [Anucort-HC] 25 mg suppository 25 mg ID BID PRN (Reason: hemorrhoid pain) Qty: 24 2RF Referrals: Clayton Chavez MD [Primary Care Provider] - Print Language: [place] Island[place]
[2024-03-11 08:43] VITALS: BP 138/72; PULSE 78; O2SAT 96; BMI 27.7
[2024-03-11 09:09] VITALS: BP 130/77; PULSE 74; RESP 14; TEMP 37.1; O2SAT 96
--- OUTSIDE RECORDS SUMMARY | 2024-03-11 09:13 | XMS_ITS ---
Author Organization [facility] Address [address] [place] [address] Care Team Providers Care House Rn Name Role Phone Dawson Millard MD, Clayton Primary Care Provide r Glenn Thompson Jr Unavailable REASON FOR VISIT Needs different RX sent MEDICATIONS Medication SIG (Take, Route, Frequency, Duration) Notes Start Date End Date Status Pantoprazole Sodium 40 MG 1 tablet Orall y Once a day for 30 day(s) 11/24/2023 Active Encounters Encounter Location Date Provider Diagnosis [facility] [address] [place] [phone] 11/24/2023 Glenn Monroy Jr Gastroesophageal reflux disease [...]
--- OUTSIDE RECORDS SUMMARY | 2024-03-11 09:13 | XMS_ITS ---
Author Organization [facility] Address [address] [place] [address] Care Team Providers Care Middle School Counselor Name Role Phone Dawson Millard MD, Clayton Primary Care Provide iker Monroy Jr, Glenn Unavailable [phone] REASON FOR VISIT Abdominal pain MEDICATIONS Medication SIG (Take, Route, Frequency, Duration) Notes Start Date End Date Status Pantoprazole Sodium 40 MG 1 tablet Orall y Once a day for 30 days 11/24/2023 Active Encounters Encounter Location Date Provider Diagnosis [facility] [address] [place] [phone] 11/28/2023 Glenn Monroy Jr PLAN OF TREATMENT Medication Medication Name Sig Start Date Stop Date Notes Pantoprazole Sodium 40 MG 1 tablet Orall y Once a day for 30 days 11/24/2023
--- OUTSIDE RECORDS SUMMARY | 2024-03-11 09:13 | XMS_ITS ---
Author Organization [facility] Address [address] [place] [address] Care Team Providers Care Animal Researcher Name Role Phone Dawson Millard MD, Clayton Primary Care Provide r Glenn Thompson Jr Unavailable REASON FOR VISIT pathology Encounters Encounter Location Date Provider Diagnosis [facility] [address] [place] [address] 10/05/2023 Glenn Monroy Jr PLAN OF TREATMENT No Information
--- OUTSIDE RECORDS SUMMARY | 2024-03-11 09:14 | XMS_ITS | Data Portability ---
Author Organization [facility] Address [address] [place] [address] Care Team Providers Care Strategic Insights Lead Name Role Phone HIM CCA OTHER Assessment [...] been taking tylenol and occasional oxycodone. VSS. Orthopedic Mechanic on site reports bruising over the shoulder, [...] Diagnosis/Indication Diagnosis SNOMED-CT Code Diagnosis ICD10 Code 62070 Destiny Patel MD [address] - [address] [place] [address] 09/01/2023 12:46:34 11/21/2023 14:15:14 Muscle pain 56729568 M79.10 Health Concerns Section Related Observation LastModified by Organization Detai ls LastModified Time None Recorded Concern Status LastModified by Organization Details LastModified Time None Recorded Advance Directives Directive None Recorded Payers Encounter Date Sequence Insurance Name Policy Number Policy Leblanc Covered Member ID Leblanc Member ID Guarantor Name 09/01/2023 1 [facility] - DOS ON OR AFTER 2022 - DUAL ELIGIBLE - HALF-WAY OPTIONS AND ONE CARE (MEDICARE REPLACEMENT/ADV ANTAGE - HMO) Shelton Davis [id number] Shelton Davis Notes Date Note Type Note Provider Name and Address Organization Details Recorded Time 09/01/2023 text/html HPI: ROSSY is a very pleasant 78 Cape Verdean speaking y/o male with a PMH of, [...] but no open wounds. ROSSY presented to [facility] on the day of the fall for [...] do so. MBR can be reached at [phone]. .................. .................. .................. .................. .................. .................. .................. ............... CRC Nurse Triage Notes (Rosy Corona): Comments: CRC RN did not require any additional information to process this visit. .................. .................. .................. .................. .................. .................. .................. ............... Orthopedic Mechanic Note From Hitesh Araiza: Dispatched to the [...] ............... Disposition: Fulfilled Destiny Patel MD [address] [facility],[address], [place], [address], [employer] 11/20/2023 19:41:13
--- OUTSIDE RECORDS SUMMARY | 2024-03-11 09:14 | XMS_ITS | Patient Health Record ---
Author Organization [facility] Address [address] [place] [address] Care Team Providers Care Associate Trainer Name Role Phone Dawson Millard MD, Clayton [...] Blood Reviewed date:09/22/2023 03:04:56 PM Interpretation: Performing Lab:[address] [address] Notes/Report: Glucose, Whole Blood 106 60-115 mg/dL METER # : [id number] Pathology Reviewed date:10/05/2023 11:07:51 AM Interpretation: Performing Lab:[address] [address] Notes/Report: REASON FOR REFERRAL No Information MEDICATIONS [...] Problem Colon cancer screening (Z12.11) Active confirmed 113074304 Problem Epigastric pain (R10.13) Active confirmed 24066980 Problem Gastro-esophageal reflux disease without esophagitis (K21.9) Active confirmed Gastro-esophag eal reflux disease without esophagitis (956895898) Problem Personal history of colonic polyps (Z86.010) Active confirmed 498630911 Problem Irritable bowel syndrome with diarrhea (K58.0) Active confirmed 601965837 Problem Generalized abdominal pain (R10.84) Active confirmed 693857949 Problem Gastroesophageal reflux disease without esophagitis (K21.9) Active confirmed 108554547 Problem History of colon polyps (Z86.010) Active confirmed History of polyp of colon (499120887) Problem Gastroesophageal reflux disease with esophagitis without hemorrhage (K21.00) Active confirmed 552959393 VITAL SIGNS Temperature 96.9 degrees Fahrenheit 08/14/2023 Blood pressure diastolic 00 mm Hg 08/14/2023 Height 67 in 08/14/2023 Blood pressure systolic 000 mm Hg 08/14/2023 Weight 162 lb 4 oz lbs 08/14/2023 BMI 25.41 kg/m2 08/14/2023 Encounters Encounter Location Date Provider Diagnosis [facility] [address] [place] [id number] 09/22/2023 Glenn Monroy Jr Gastro-esophageal reflux disease without esophagitis K21.9 [facility] [address] [place] [address] 09/13/2023 Glenn Monroy Jr [facility] [address] [facility] [place] [address] 08/14/2023 Glenn Monroy Jr Gastroesophageal reflux disease without esophagitis K21.9 and Irritable bowel syndrome with diarrhea K58.0 [facility] [address] [place] [address] 03/17/2023 Glenn Monroy Jr Gastroesophageal reflux disease with esophagitis without hemorrhage K21.00 [facility] [address] [place] [id number] 05/01/2023 Glenn Monroy Jr [facility] [address] [place] [id number] 09/18/2023 Glenn Monroy Jr [facility] [address] [place] [facility] [id number] 09/20/2023 Glenn Monroy Jr [facility] [address] [facility] [place] [address] 10/05/2023 Glenn Monroy Jr [facility] [address] [facility] [place] [address] 11/24/2023 Glenn Monroy Jr Gastroesophageal reflux disease without esophagitis K21.9 [facility] [address] [facility] [place] [address] 11/28/2023 Glenn Monroy Jr ASSESSMENTS Encounter Date [...] Insured Coverage Start Date Coverage End Date [facility] [address] Attn Claims CIPRIANO Julio [id number] ROBB PADRON Self - patient is the [...]
[2024-03-11 09:22] LABS: MANUAL DIFF FLAG NO
[2024-03-11 09:28] LABS: Basophils Percent Auto 0.2 % (0-2); Eosinophils Absolute Auto 0.1 X10*3/uL (0.0-0.4); Eosinophils Percent Auto 0.4 % (0-4); Hematocrit 43.6 % (42.0-52.0); Hemoglobin 14.9 g/dl (14.0-18.0); Imm Gran Abs Auto 0.08 X10*3/uL (0.00-0.03); Imm Gran Pct Auto 0.5 % (0.0-0.4); Lymphocytes Absolute Auto 1.5 X10*3/uL (1.2-4.9); Lymphocytes Percent Auto 9.8 % (20-40); Mean Corpuscular HGB Conc 34.2 g/dl (31.0-36.0); Mean Corpuscular Hemoglobin 32.8 pg (27.0-33.0); Mean Platelet Volume 10.2 fL (9.4-12.4); Monocytes Percent Auto 6.6 % (2-11); Neutrophils Absolute Auto 12.2 x10*3/uL (2.0-8.3); Neutrophils Percent Auto 82.5 % (45-73); Platelet Count 218 X10*3/uL (160-400); Red Blood Count 4.54 X10*6/uL (4.60-5.80); Red Cell Distribution Width 12.6 % (11.0-16.0); White Blood Count 14.8 X10*3/uL (4.8-10.8)
[2024-03-11 09:36] LABS: Alanine Aminotransferase 18 U/L (0-40); Albumin Level 3.9 g/dL (3.5-5.0); Alkaline Phosphatase 95 U/L (39-117); Anion Gap 12 (12-20); Aspartate Amino Transferase 23 U/L (5-37); Bilirubin Total 0.9 mg/dL (0.0-1.0); Blood Urea Nitrogen 7 mg/dL (9-16); Calcium 8.6 mg/dL (8.4-10.2); Carbon Dioxide 26 mmol/L (22-29); Chloride 104 mmol/L (96-108); Creatinine Clr Calc Pharmacy 73.5; Estimated Glomerular Filt Rate > 60; Glucose Random 141 mg/dL (60-115); Potassium 3.8 mmol/L (3.3-5.1); Sodium 138 mmol/L (135-145); Total Protein 6.9 g/dL (6.5-8.0)
[2024-03-11] MEDS: iohexoL 350 MG/ML 100 ML INFUS..BTL 85 ML IV (10:37)
[2024-03-11 14:36] VITALS: BP 132/78; PULSE 76; RESP 19; TEMP 36.9; O2SAT 98
--- NOTE | 2024-03-11 14:45 | PC.NURSE ---
Meds. not given by primary RN. Pt. no longer has IV access. CIPRIANO Smallwood aware. Per JOYCE COTA to d/c pt. without the Ampicillin, Morphine or Zofran
[2024-03-11 14:49] VITALS: BP 132/78; PULSE 76; RESP 19; TEMP 36.9; O2SAT 98
[2024-03-11 15:15] VITALS: BP 00/00; PULSE 0; RESP 0; TEMP -17.7; TEMP 0; O2SAT 0
== END 2024-03-11 15:17 | disposition home or self-care (01) ==
PROVIDERS: Physician Assistant Medical; Emergency Provider Emergency Medicine; PCP Internal Medicine
DX: S39.91XA Unspecified injury of abdomen, initial encounter (principal); K57.32 Diverticulitis of large intestine without perforation or abscess without bleeding; R10.32 Left lower quadrant pain; R51.9 Headache, unspecified; M54.2 Cervicalgia; R10.2 Pelvic and perineal pain; W18.30XA Fall on same level, unspecified, initial encounter; Y93.89 Activity, other specified; Y92.89 Other specified places as the place of occurrence of the external cause; Y99.8 Other external cause status; Z79.899 Other long term (current) drug therapy
CPT/HCPCS: 36415; 70450; 72125; 74177; 80053; 85025; 99284; Q9967

== ENCOUNTER → 2024-03-11 08:56 | Outpatient (BNV) | payer OTHER, SELFPAY | PROVIDERS: Emergency Provider Emergency Medicine; PCP Internal Medicine; Visit Provider Radiology Diagnostic Radiology | DX: K57.32 Diverticulitis of large intestine without perforation or abscess without bleeding (principal); K44.9 Diaphragmatic hernia without obstruction or gangrene; M47.812 Spondylosis without myelopathy or radiculopathy, cervical region; R51.9 Headache, unspecified; W01.198A Fall on same level from slipping, tripping and stumbling with subsequent striking against other object, initial encounter | CPT/HCPCS: 70450; 72125; 74177 ==

== ENCOUNTER 2024-04-03 10:58 | Outpatient (AMB) | payer OTHER, SELFPAY ==
--- NOTE | 2024-04-03 11:15 | A.OFFVIS_ITS ---
Intake Visit Reasons: PVR/Med Review(Tadalafil) Intake Note: Patient is present for PVR/MED REVIEW Urology Medication:NONE Antibiotic Allergy:GABAPENTIN Blood Thinner:ASPIRIN Todays PVR:0ML'S College Dean Required: No Allergies lisinopril [LISINOPRIL] Allergy (Intermediate, Verified 04/03/24 11:18) COUGH oxycodone [From PERCOCET] Allergy (Intermediate, Verified 04/03/24 11:18) VOMITING alprazolam [From XANAX] Adverse Reaction (Intermediate, Verified 04/03/24 11:18) VOMITING gabapentin Adverse Reaction (Verified 04/03/24 11:18) Abdominal Pain HPI Comments Details: Shelton is a pleasant male. He is a patient Dr. Osman. He is seen for the following urologic conditions - night lower urinary tract symptoms - erectile dysfunction in setting of diabetes Macedonian translation provided by qualified diplomatic interpreter/translator Four month follow-up Had been on daily tadalafil for bladder stability given background diabetes Not using tadalafil 12 month follow-up PSA and PVR Lower Urinary tract symptoms Previously on tamsulosin and Myrbetriq Prior therapy laser prostatectomy PSA - 06/14 0.4 He has been on daily tadalafil for bladder stability PFSH Medical History Weak urinary stream Erectile dysfunction Bleeding hemorrhoids Diabetes mellitus Arteriosclerosis Cancer Pulmonary nodule Non-ischemic cardiomyopathy CVA (cerebral vascular accident) Arthritis Asthma GERD (gastroesophageal reflux disease) Elevated cholesterol Diastolic dysfunction Surgical History Hx of transurethral resection of prostate History of esophagogastroduodenoscopy (EGD) H/O colonoscopy Hx of cataract extraction History of ankle surgery History of surgical removal of skin lesion History of hemorrhoidectomy History of appendectomy Family History Father Prostate cancer Mother Parkinson disease Social History Household Members Other:: Daughter and grand child Alcohol intake: former Patient Tobacco Use Status: Former Tobacco user Review of Systems Const Denies chills and Denies fever(s) Card Reports no additional complaints and Denies syncope Resp Denies cough GI Denies abdominal pain and Denies heartburn Reports as per HPI and Denies change in libido Neuro Denies syncope Psych Denies change in libido Endo Denies change in libido Physical Exam Const General: cooperative, healthy appearing, comfortable and no acute distress Orientation/consciousness: patient oriented x3 HEENT Face and sinus: Yes normal facial exam Mouth: moist mucous membranes Neck Neck: Yes normal visual inspection, Yes full ROM and Yes trachea midline Chest Chest palpation & inspection: normal inspection of the chest Resp Effort & Inspection: normal respiratory effort, able to speak in complete sentences and no respiratory distress GI Inspection: Yes normal to inspection Back/Spine/Pelvis Cervical Spine: normal cervical lordosis Thoracic/Lumbar Spine: thoracic and lumbar spine normal to inspection Skin General skin exam: no rashes or lesions noted Neuro General: patient oriented x3, gait normal, tone normal and moves all extremities Extrem General: Yes normal to inspection and Yes capillary refill normal Office Procedures Post Void Residual Post Residual Void Post Void Residual (PVR): 0 06942-Miwk Void Residual by ultrasound Results AMB Urinalysis, Automated UA Leukoctes 0 Cassidy/uL Last Edit by SCOTT Nunez on 04/03/24 11:30 UA Nitrite Negative Last Edit by SCOTT Nunez on 04/03/24 11:30 UA Urobilinogen 0.2 mg/dL Last Edit by SCOTT Nunez on 04/03/24 11:3 0 UA Protein 15 mg/dL Last Edit by SCOTT Nunez on 04/03/24 11:30 UA pH 6.0 Last Edit by SCOTT Nunez on 04/03/24 11:30 UA Blood 0 Mariano/uL Last Edit by SCOTT Nunez on 04/03/24 11:30 UA Specific [place] 1.020 Last Edit by SCOTT Nunez on 04/03/24 11: 30 UA Ketone Negative Last Edit by SCOTT Nunez on 04/03/24 11:30 UA Bilirubin 1 mg/dL Last Edit by SCOTT Nunez on 04/03/24 11:30 UA Glucose 0 mg/dL Last Edit by SCOTT Nunez on 04/03/24 11:30 Results Reviewed Results Reviewed: Laboratory Last Values Urine pH (Auto) 6.0 04/03/24 11:29 Specific [place] (Auto) 1.020 04/03/24 11:29 Urine Protein (Auto) 15 mg/dL 04/03/24 11:29 Glucose (UA)(Auto) 0 mg/dL 04/03/24 11:29 Urine Ketones (Auto) Negative 04/03/24 11:29 Urine Blood (Auto) 0 Mariano/uL 04/03/24 11:29 Urine Nitrite (Auto) Negative 04/03/24 11:29 Urine Bilirubin (Auto) 1 mg/dL 04/03/24 11:29 Urine Urobilinogen (Auto) 0.2 mg/dL 04/03/24 11:29 Leukocyte Esterase (Auto) 0 Cassidy/uL 04/03/24 11:29 Assessment & Plan Assessment & Plan (1) BPH w urinary obs/LUTS: Code(s): N40.1 - Benign prostatic hyperplasia with lower urinary tract symptoms; N13.8 - Other obstructive and reflux uropathy Category: Medical (2) Erectile dysfunction due to arterial insufficiency: Code(s): N52.01 - Erectile dysfunction due to arterial insufficiency Category: Medical Plan Twelve month follow-up PSA Orders: Orders AMB Urinalysis Automated Today Z13.9 - Encounter for screening, unspecified Prostate Specific Antigen 364 Days N13.8 - Other obstructive and reflux uropathy, N40.1 - Benign prostatic hyperplasia with lower urinary tract symptoms Patient Instructions: Imaging studies, laboratory and physical exam results were discussed and reviewed in detail. No major barriers to patient understanding were identified. An opportunity to ask questions regarding the treatment plan was provided. All questions were answered. The patient expressed understanding and agreement with the above treatment plan. The patient is aware they should contact our office by phone for worsening of their current condition or the appearance of new urologic symptoms. Compliance is encouraged with any medications and followup testing that is ordered. It is a privilege to participate in the urologic care of your patient. If you have any questions or concerns regarding treatment for the above conditions, or other urologic issues, please do not hesitate to contact me. The office telephone contact is [phone]. This note is constructed using voice recognition software. While every effort has been made to ensure accuracy plastic surgery coordinator errors may have been included. Yours sincerely, Dr Ke Rivera MD, [facility] - Urology Providers of Expert, Compassionate Care for the Genitourinary System Coding Level of Care Code Est Pt Level 3 (61842) Diagnoses BPH w urinary obs/LUTS N40.1; N13.8 Erectile dysfunction due to arterial insufficiency N52.01 CPT Codes Post Residual Void - PVR CPT Code: 63969-Ruvy Void Residual by ultrasound ([id number])
--- OUTSIDE RECORDS SUMMARY | 2024-04-03 11:18 | XMS_ITS | Patient Health Record ---
Author Organization [facility] Address [address] [place] [address] Care Team Providers Care Board Certified Music Therapist Name Role Phone Dawson Millard MD, [place] Primary Care Provide Glenn Mary Jr Unavailable [phone] ALLERGIES Allergen (clinical drug ingredient) Drug/Non Drug [...] Blood Reviewed date:09/22/2023 03:04:56 PM Interpretation: Performing Lab:[facility], [address] [place] [id number] Notes/Report: Glucose, Whole Blood 106 60-115 mg/dL METER # : [id number] Pathology Reviewed date:10/05/2023 11:07:51 AM Interpretation: Performing Lab:[address] [address] Notes/Report: REASON FOR REFERRAL No Information MEDICATIONS [...] Problem Colon cancer screening (Z12.11) Active confirmed 129330764 Problem Epigastric pain (R10.13) Active confirmed 51038048 Problem Gastro-esophageal reflux disease without esophagitis (K21.9) Active confirmed Gastro-esophag eal reflux disease without esophagitis (035634990) Problem Personal history of colonic polyps (Z86.010) Active confirmed 080946100 Problem Irritable bowel syndrome with diarrhea (K58.0) Active confirmed 236067307 Problem Generalized abdominal pain (R10.84) Active confirmed 755498271 Problem Gastroesophageal reflux disease without esophagitis (K21.9) Active confirmed 941488127 Problem History of colon polyps (Z86.010) Active confirmed History of polyp of colon (461727382) Problem Gastroesophageal reflux disease with esophagitis without hemorrhage (K21.00) Active confirmed 942529427 VITAL SIGNS Temperature 96.9 degrees Fahrenheit 08/14/2023 Blood pressure diastolic 00 mm Hg 08/14/2023 Height 67 in 08/14/2023 Blood pressure systolic 000 mm Hg 08/14/2023 Weight 162 lb 4 oz lbs 08/14/2023 BMI 25.41 kg/m2 08/14/2023 Encounters Encounter Location Date Provider Diagnosis [facility] Outpatient [address] [place] [phone] 09/22/2023 Glenn Monroy Jr Gastro-esophageal reflux disease without esophagitis K21.9 [facility] [address] [place] [address] 09/13/2023 Glenn Monroy Jr [facility] [address] [place] [address] 08/14/2023 Glenn Monroy Jr Gastroesophageal reflux disease without esophagitis K21.9 and Irritable bowel syndrome with diarrhea K58.0 [facility] [address] [place] [address] 05/01/2023 Glenn Monroy Jr [facility] [address] [place] [address] 09/18/2023 Glenn Monroy Jr [facility] [address] [place] [address] 09/20/2023 Glenn Monroy Jr [facility] [address] [facility] [place] [address] 10/05/2023 Glenn Monroy Jr [facility] [address] [place] [address] 11/24/2023 Glenn Monroy Jr Gastroesophageal reflux disease without esophagitis K21.9 [facility] [address] [place] [address] 11/28/2023 Glenn Monroy Jr ASSESSMENTS Encounter Date Diagnosis Assessment Notes Treatment Notes Treatment Clinical Notes 09/22/2023 Gastro-esophageal reflux disease without esophagitis (ICD-10 - K21.9) 08/14/2023 Irritable bowel syndrome with diarrhea (ICD-10 - K58.0) 08/14/2023 Gastroesophageal ref lux disease without esophagitis (ICD-10 - K21.9) Endoscopy material was printed 11/24/2023 Gastroesophageal ref lux disease without esophagitis [...] Insured Coverage Start Date Coverage End Date [facility] [address] Attn Claims CIPRIANO Julio [id number] ROBB PADRON Self - patient is the [...]
--- OUTSIDE RECORDS SUMMARY | 2024-04-03 11:18 | XMS_ITS ---
Author Organization [facility] Address [address] [place] [address] Care Team Providers Care Senior Ruby Developer Name Role Phone Dawson Millard MD, [place] Primary Care Provide r Glenn Thompson Jr Unavailable [phone] REASON FOR VISIT pathology Encounters Encounter Location Date Provider Diagnosis [facility] [address] [place] [address] 10/05/2023 Glenn Monroy Jr PLAN OF TREATMENT No Information
--- OUTSIDE RECORDS SUMMARY | 2024-04-03 11:18 | XMS_ITS ---
Author Organization [facility] Address [address] [place] [address] Care Team Providers Care Computer Tech Name Role Phone Dawson Millard MD, [place] Primary Care Provide iker Monroy Jr, Glenn Unavailable REASON FOR VISIT Abdominal pain MEDICATIONS Medication SIG (Take, Route, Frequency, Duration) Notes Start Date End Date Status Pantoprazole Sodium 40 MG 1 tablet Orall y Once a day for 30 days 11/24/2023 Active Encounters Encounter Location Date Provider Diagnosis [facility] [address] [place] [address] 11/28/2023 Glenn Monroy Jr PLAN OF TREATMENT Medication Medication Name Sig Start Date Stop Date Notes Pantoprazole Sodium 40 MG 1 tablet Orall y Once a day for 30 days 11/24/2023
--- OUTSIDE RECORDS SUMMARY | 2024-04-03 11:18 | XMS_ITS ---
Author Organization [facility] Address [address] [place] [address] Care Team Providers Care Special Agent Secret Service Name Role Phone Dawson Millard MD, [place] Primary Care Provide r Glenn Thompson Jr Unavailable [phone] REASON FOR VISIT Needs different RX sent MEDICATIONS Medication SIG (Take, Route, Frequency, Duration) Notes Start Date End Date Status Pantoprazole Sodium 40 MG 1 tablet Orall y Once a day for 30 day(s) 11/24/2023 Active Encounters Encounter Location Date Provider Diagnosis [facility] [address] [place] [address] 11/24/2023 Glenn Monroy Jr Gastroesophageal reflux disease [...]
--- OUTSIDE RECORDS SUMMARY | 2024-04-03 11:18 | XMS_ITS | Data Portability ---
Author Organization [employer] [facility] [employer] Address [address] [place] [address] Care Team Providers Care Reinspector Name Role Phone HIM [facility] OTHER Assessment [...] been taking tylenol and occasional oxycodone. VSS. 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 reports bruising over the shoulder, [...] Diagnosis/Indication Diagnosis SNOMED-CT Code Diagnosis ICD10 Code Diagnosis Note [id number] Destiny Patel MD [address] [place] [address] 09/01/2023 12:46:34 11/21/2023 14:15:14 Muscle pain 29009705 M79.10 Health Concerns Section Related Observation LastModified by Organization Detai ls LastModified Time None Recorded Concern Status LastModified by Organization Details LastModified Time None Recorded Advance Directives Directive None Recorded Payers Encounter Date Sequence Insurance Name Policy Number Policy Leblanc Covered Member ID Leblanc Member ID Guarantor Name 09/01/2023 1 [facility] - DOS ON OR AFTER 2022 - DUAL ELIGIBLE - LONGTERM OPTIONS AND ONE CARE (MEDICARE REPLACEMENT/ADV ANTAGE - HMO) Shelton Davis [id number] Shelton Davis Notes Date Note Type Note Provider Name and Address Organization Details Recorded Time 09/01/2023 text/html HPI: ROSSY is a very pleasant 78 Amharic speaking y/o male with a PMH of, [...] but no open wounds. ROSSY presented [place] [facility] [place] the day of the fall for [...] do so. MBR can be reached at [phone]. .................. .................. .................. .................. .................. .................. .................. ............... [facility] Nurse Triage Notes (Rosy Corona): Comments: CRC RN did not require any additional information to process this visit. .................. .................. .................. .................. .................. .................. .................. ............... Topper Press Operator Automatic Note From Hitesh Araiza: Dispatched to the [...] ............... Disposition: Fulfilled Destiny Patel MD [address] [facility],[address], [place], [address], [place] - [place] 11/20/2023 19:41:13
== END 2024-04-03 11:43 | disposition home or self-care (01) ==
PROVIDERS: PCP Internal Medicine; Visit Provider Urology
DX: N40.1 Benign prostatic hyperplasia with lower urinary tract symptoms (principal); N13.8 Other obstructive and reflux uropathy; N52.01 Erectile dysfunction due to arterial insufficiency; Z13.9 Encounter for screening, unspecified
CPT/HCPCS: 99213

== ENCOUNTER → 2024-04-03 10:58 | Outpatient (BNVA) | payer OTHER, SELFPAY | PROVIDERS: PCP Internal Medicine; Visit Provider Urology | DX: N40.1 Benign prostatic hyperplasia with lower urinary tract symptoms (principal); N13.8 Other obstructive and reflux uropathy; N52.01 Erectile dysfunction due to arterial insufficiency | CPT/HCPCS: 51798; 81003; 99212 ==

== ENCOUNTER 2024-06-15 10:36 | Inpatient (IN) | payer OTHER, SELFPAY ==
--- NOTE | 2024-06-15 | ECG_ITS ---
Test Reason : TACHY Blood Pressure : */* mmHG Vent. Rate : 110 BPM Atrial Rate : * BPM P-R Int : * ms QRS Dur : 98 ms QT Int : 302 ms P-R-T Axes : * 7 177 degrees QTcB Int : 408 ms Atrial fibrillation with rapid ventricular response with premature ventricular or aberrantly conducted complexes Nonspecific ST and T wave abnormality Abnormal ECG When compared with ECG of 03-Mar-2024 23:54, Atrial fibrillation has replaced Sinus rhythm Vent. rate has increased by 45 bpm Nonspecific T wave abnormality has replaced inverted T waves in Lateral leads Referred By: Generic ED Physician Electronically Signed By: MAXWELL GÓMEZ MD
--- NOTE | ~2024-06-15 | XR_ITS ---
CLINICAL HISTORY: weakness - unwell 1 view chest x-ray Comparison: CR/AL/SR - XR CHEST 1V - 08/29/23 13:47 EDT Findings: Bilateral lower lobe opacities. No pleural effusion or pneumothorax. The cardiac silhouette is enlarged. No CHF. No acute fracture. IMPRESSION: Bilateral lower lobe opacities secondary to atelectasis, infiltrates or aspiration. This document has been electronically signed by: Marcela Barone DO on 06/15/2024 11:34:45
--- NOTE | ~2024-06-15 | CT_ITS ---
CLINICAL HISTORY: abd pain CT ABDOMEN AND PELVIS WITH CONTRAST Comparison: CT/TX/SR - CT ABDOMEN PELVIS W IV CON - 03/11/24 10:04 EST Findings: There is motion artifact. Bilateral lower lobe atelectasis and/or infiltrates. Suspect concomitant scarring. No pleural effusion. Cardiomegaly. No acute abnormalities in the solid organs or gallbladder. Diffuse fatty infiltration of the liver. Subtle surface nodularity suggests early cirrhotic morphology. No large calcified gallstone. No AAA. 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 No urolithiasis. Tiny left renal cortical hypodensities are too small to accurately characterize. No bowel obstruction, pneumoperitoneum, or pneumatosis. Multiple colonic diverticula. Mild paracolic fat stranding in the distal descending colon extends to the proximal sigmoid. No ascites or significant mesenteric edema. The appendix is not seen. Mild prostatomegaly. Questionable TURP defect. Prostatic calcifications. No acute fracture. IMPRESSION: Diverticulosis coli. Probable mild/early diverticulitis in the distal descending colon and proximal sigmoid. This document has been electronically signed by: Marcela Barone DO on 06/15/2024 13:52:13
[2024-06-15 10:39] VITALS: BP 148/90; PULSE 97; O2SAT 98
[2024-06-15 10:51] VITALS: BP 135/93; PULSE 122; RESP 20; TEMP 36.6; O2SAT 95; BMI 25.8
--- NOTE | 2024-06-15 11:01 | PC.NURSE ---
new afib noted on monitor 1116-130's
--- NOTE | 2024-06-15 11:02 | ED_ITS ---
HPI - General Adult General Chief complaint: General Medical Stated complaint: GENERAL WEAKNESS Time Seen by Provider: 06/15/24 11:02 Source: patient, EMS and green jobs trainer (all interactions with this patient were facilitated with an [facility] assistant broker) Mode of arrival: EMS Limitations: language barrier (all interactions with this patient were facilitated with an [facility] assistant broker) History of Present Illness ED Provider: Shira Robison PA-C HPI narrative: Patient is a 79 year old assigned male at with a history of asthma, CVA, DM, non-ishemic cardiomyopathy, fibromyalgia, BPH, erectile dysfunction, GERD, migraines, and hemorrhoids presenting to the emergency department today with dizziness, weakness, and abdominal pain. Patient states that over the last 3 days he has felt generally unwell with dizziness, nausea, weakness, and abdominal pain. Patient states that he attempted to be seen at [facility] 3 days ago however, he left without being seen. Patient denies any lightheadedness, vomiting, fever, chills, blurry vision, double vision, loss of vision, chest pain, difficulty breathing, shortness of breath, back pain, night sweats, pain with urination, increased urinary frequency, increased urinary urgency, blood in his urine or stool, syncope or a near syncopal episode, recent trauma or falls, bowel incontinence, bladder incontinence, or any other complaints at this time. Onset (ago): day(s) (3) Location: abdomen Relieving factors: none Exacerbating factors: none Associated symptoms: nausea/vomiting and weakness Treatments prior to arrival: none Related Data Home Medications ?Medication ?Instructions ?Recorded ?Confirmed amitriptyline 25 mg tablet 25 mg PO DAILY 01/28/20 06/15/24 albuterol sulfate 2.5 mg/3 mL 2.5 mg inhalation QID PRN Wheezing 06/11/20 06/15/24 (0.083 %) solution for nebulization aspirin 81 mg tablet,delayed 81 mg PO DAILY 06/11/20 06/15/24 release atorvastatin 80 mg tablet 80 mg PO DAILY 06/11/20 06/15/24 multivitamin 1 tab PO DAILY 06/11/20 06/15/24 albuterol sulfate 90 mcg/actuation 2 puff inhalation Q6H PRN Wheezing 11/13/20 06/15/24 aerosol inhaler (Ventolin HFA) blood sugar diagnostic (FreeStyle #10 ea 06/15/21 12/20/22 Lite Strips) lancets 33 gauge (TRUEplus Lancets) #100 ea 06/15/21 12/20/22 metoprolol tartrate 25 mg tablet 25 mg PO BEDTIME 08/26/22 06/15/24 metoprolol tartrate 25 mg tablet 50 mg PO DAILY 06/15/24 06/15/24 pantoprazole 40 mg tablet,delayed 40 mg PO DAILY@0630 06/15/24 06/15/24 release sumatriptan succinate 50 mg tablet 50 mg PO Q2H PRN Migraine Headache 06/15/24 06/15/24 timolol maleate 0.5 % eye drops 1 drp ophthalmic-Right DAILY 06/15/24 06/15/24 triamcinolone acetonide 0.1 % 1 appl topical BID PRN pain and 06/15/24 06/15/24 topical cream swelling Previous Rx's ?Medication ?Instructions ?Recorded aluminum hydrox-magnesium carb 254 10 ml PO QID PRN dyspepsia #355 mL 11/14/23 mg-237.5 mg/5 mL oral suspension (Gaviscon Extra Strength) Allergies Allergy/AdvReac Type Severity Reaction Status Date / Time lisinopril [LISINOPRIL] Allergy Intermediate COUGH Verified 06/15/24 10:53 oxycodone [From PERCOCET] Allergy Intermediate VOMITING Verified 06/15/24 10:53 alprazolam [From XANAX] AdvReac Intermediate VOMITING Verified 06/15/24 10:53 gabapentin AdvReac Abdominal Verified 06/15/24 10:53 Pain Review of Systems 2 Constitutional: Constitutional: Reports no additional constitutional complaints, Denies chills, Denies fever(s) and Denies night sweats Eyes: Eyes: Reports no additional eye complaints, Denies blurry vision, Denies change in vision, Denies diplopia, Denies eye discharge, Denies loss of vision and Denies eye pain ENT: Reports dizziness Cardiovascular: Cardiovascular: Reports no additional cardiovascular complaints, Denies chest pain, Denies lightheadedness, Denies Loss of Consciousness and Denies dyspnea Respiratory: Respiratory: Reports no additional respiratory complaints and Denies dyspnea Gastrointestinal: Gastrointestinal: Reports no additional gastrointestinal complaints, Reports abdominal pain, Denies melena, Denies hematochezia, Denies change in bowel habits, Denies change in stool character, Reports nausea and Denies vomiting Genitourinary: Genitourinary: Reports no additional male genitourinary complaints, Denies hematuria, Denies oliguria, Denies difficulty urinating, Denies dysuria, Denies urinary frequency, Denies urinary hesitancy, Denies urinary incontinence and Denies urinary urgency Musculoskeletal: Musculoskeletal: Reports no additional musculoskeletal complaints, Denies numbness and Denies tingling Neurologic: Reports dizziness, Denies loss of vision, Denies numbness and Denies tingling Psychiatric: Psychiatric: Reports no additional psychiatric complaints Endocrine: Endocrine: Reports no additional endocrine complaints Hematologic/Lymphatic: Hematologic/Lymphatic: Reports no additional hematologic/lymphatic complaints Allergic/Immunologic: Allergic/Immunologic: Reports no additional allergic/immunologic complaints [facility] Past Medical History Attestation statement: The following information was validated with the patient. Source: old records reviewed and nursing notes reviewed Medical History Weak urinary stream Erectile dysfunction Bleeding hemorrhoids Diabetes mellitus Arteriosclerosis Cancer Pulmonary nodule Non-ischemic cardiomyopathy CVA (cerebral vascular accident) Arthritis Asthma GERD (gastroesophageal reflux disease) Elevated cholesterol Diastolic dysfunction Surgical History Hx of transurethral resection of prostate History of esophagogastroduodenoscopy (EGD) H/O colonoscopy Hx of cataract extraction History of ankle surgery History of surgical removal of skin lesion History of hemorrhoidectomy History of appendectomy Family History Family History Father Prostate cancer Mother Parkinson disease Social History Social History Household Members Other:: Daughter and grand child Alcohol intake: former Patient Tobacco Use Status: Former Tobacco user Advance Directives: No Advance Directives Information Provided: No Do you have a plan to hurt others: No Plan Physical Exam ED Vital Signs: Vital Signs - 24 hr 06/15/24 10:51 06/15/24 11:32 Temperature 97.9 F Pulse Rate 122 H 96 Respiratory Rate 20 Blood Pressure 135/93 H 133/99 H Pulse Oximetry 95 Oxygen Delivery Method Room Air BMI result Body Mass Index 25.8 Const General: cooperative, no acute distress, alert and awake Nutritional Appearance: well nourished Orientation/consciousness: patient oriented x3 Limitations: no limitations HENMT Head: Yes normal to inspection and Yes atraumatic Ears: hearing grossly normal bilaterally and external ears normal General nose exam: Normal external nose present, no nasal discharge noted and no epistaxis Face and sinus: Yes normal facial exam, No abrasion and No laceration Mouth: Normal oral and palatal mucosa present, no drooling and no muffled voice Eyes General: appearance normal, both eyes and all related structures Periorbital: periorbital findings normal Eyelids: Yes eyelids normal Conjunctivae: conjunctivae normal Pupils: Equal, round and reactive pupils present EOM: EOMs intact bilaterally Neck Neck: Yes normal visual inspection, Yes full ROM and Yes no lymphadenopathy Chest Chest palpation & inspection: normal inspection of the chest Resp Effort & Inspection: normal respiratory effort and able to speak in complete sentences Cardio Rate: tachycardic Rhythm: abnormal rhythm irregularly irregular GI Inspection: Yes normal to inspection Palpation (GI): Soft to palpation, not firm, Tenderness to palpation present (GI), no guarding and not rigid Neuro General: patient oriented x3, moves all extremities and CN's II-XI intact bilaterally Cranial nerves: Yes Equal, round and reactive pupils present Cognition (Neuro): normal cognition Extrem General: Yes normal to inspection, Yes full ROM and Yes capillary refill normal Psych Appearance: grossly normal Mental Status: mental status grossly normal Affect: normal affect Attitude: cooperative Thought process: Normal thought process present Thought content: Normal thought content present Insight: Good insight present (Psych) Medications Administered Discontinued Medications Generic Name Dose Route Start Last Admin Trade Name Nicole PRN Reason Stop Dose Admin Ceftriaxone Sodium 1 gm 06/15/24 13:58 06/15/24 14:20 Ceftriaxone Sodium 1 Gm Vial IVPUSH 06/15/24 13:59 1 gm ONCE ONE Administration Metronidazole 500 mg in 100 mls @ 100 mls/hr 06/15/24 13:58 06/15/24 14:20 Flagyl IV 06/15/24 14:57 100 mls/hr ONCE ONE Administration Iohexol 100 ml 06/15/24 13:07 06/15/24 13:07 Iohexol 350 Mg/Ml 100 Ml Infus..Btl IV 06/15/24 13:08 85 ml ONCE ONE Administration Metoprolol Tartrate 25 mg 06/15/24 11:10 06/15/24 11:32 Metoprolol Tartrate 25 Mg Tablet PO 06/15/24 11:11 25 mg ONCE ONE Administration Protocol Ondansetron HCl 4 mg 06/15/24 11:10 06/15/24 11:32 Ondansetron Hcl 4 Mg/2 Ml Vial IVPUSH 06/15/24 11:11 4 mg ONCE ONE Administration Pantoprazole Sodium 40 mg 06/15/24 11:10 06/15/24 11:32 Pantoprazole Sodium 40 Mg/10 Ml Vial IVPUSH 06/15/24 11:11 40 mg ONCE ONE Administration Medical Decision Making Medical Decision Making [facility] Narrative: Patient is a 79 year old assigned male at with a history of asthma, CVA, DM, non-ishemic cardiomyopathy, fibromyalgia, BPH, erectile dysfunction, GERD, migraines, and hemorrhoids presenting to the emergency department today with dizziness, weakness, and abdominal pain. Patient's physical exam was as noted in the physical exam portion of this note. Patient's blood work showed a BNP of 794, 1st troponin 13.4 with a 2 hour repeat level of 12.3. Patient's EKG showed a new atrial fibrillation with RVR. Patient's chest x-ray showed bilateral lower lobe opacities that could be infiltrates vs. atelectasis vs. aspiration. Patient's CT abd/pelvis showed early diverticulitis. Patient was given 1 dose of his home metoprolol which appropriately slowed his heart rate. Given his imaging findings, patient was given IV Flagyl + ceftriaxone. I spoke to the hospitalist team who agreed to admission. Patient's clinical presentation is not consistent with sepsis (@1406). I explained my physical exam findings as well as all test results to the patient. I answered all questions asked by the patient. Patient verbalized agreement and understanding with this treatment plan and admission. Differential Diagnosis Differential Diagnoses: The differential diagnosis associated with the presentation includes Weakness Dizziness Atrial fibrillation with RVR New atrial fibrillation Abdominal pain Nausea Vomiting Diarrhea PNA Admission/Observation Consideration of admission/observation: Escalation of care including admission/observation considered Patient admitted as noted in the MDM Rationale portion of this note. Consult Healthcare Provider Management of the patient was discussed with: Hospitalist (agreed to admission as noted in the MDM Rationale portion of this note. ) Lab Data [facility] Lab Attestation statement: I reviewed the patient's lab results. My interpretation of these results are in the MDM Rationale portion of this note. 06/15/24 11:03 06/15/24 11:03 Labs: Lab Results 06/15/24 06/15/24 06/15/24 Range/Units 11:03 11:11 13:16 WBC 9.2 (4.8-10.8) X10*3/uL RBC 4.74 (4.60-5.80) X10*6/uL Hgb 15.4 (14.0-18.0) g/dl Hct 43.4 (42.0-52.0) % MCV 91.6 (80.0-98.0) fL MCH 32.5 (27.0-33.0) pg MCHC 35.5 (31.0-36.0) g/dl RDW 12.7 (11.0-16.0) % Plt Count 201 (160-400) X10*3/uL MPV 10.2 (9.4-12.4) fL Immature Gran % (Auto) 0.2 (0.0-0.4) % Neut % (Auto) 65.5 (45-73) % Lymph % (Auto) 26.2 (20-40) % [place] % (Auto) 7.2 (2-11) % Eos % (Auto) 0.5 (0-4) % Baso % (Auto) 0.4 (0-2) % Lymph # (Auto) 2.4 (1.2-4.9) X10*3/uL [place] # (Auto) 0.7 (0.1-1.2) X10*3/uL Eos # (Auto) 0.1 (0.0-0.4) X10*3/uL Baso # (Auto) 0.0 (0.0-0.2) X10*3/uL Abs Immat Gran (auto) 0.02 (0.00-0.03) X10*3/uL Absolute Neuts (auto) 6.0 (2.0-8.3) x10*3/uL Absolute Nucleated RBC 0.000 (0.0-0.012) X10*3/uL Nucleated RBC % (auto) 0.0 (0.0-0.2) /100WBC Sodium 137 (135-145) mmol/L Potassium 3.4 (3.3-5.1) mmol/L Chloride 106 (96-108) mmol/L Carbon Dioxide 21 L (22-29) mmol/L Anion Gap 13 (12-20) BUN 8 L (9-16) mg/dL Creatinine 0.83 (0.5-1.4) mg/dL Estim Creat Clear Calc 68.5 Estimated GFR > 60 Random Glucose 140 H (60-115) mg/dL Calcium 8.9 (8.4-10.2) mg/dL Magnesium 2.0 (1.6-2.6) mg/dL Total Bilirubin 1.2 H (0.0-1.0) mg/dL AST 36 (5-37) U/L ALT 36 (0-40) U/L Alkaline Phosphatase 86 (39-117) U/L Troponin I High Sens 13.4 12.3 (<3.5-35.0) ng/L B-Natriuretic Peptide 794 H (<100) pg/mL Total Protein 7.2 (6.5-8.0) g/dL Albumin 3.9 (3.5-5.0) g/dL Lipase 16 (8-78) U/L Urine Color Urine Appearance Urine pH (5.0-9.0) Ur Specific [place] (1.005-1.025) Urine Protein (Neg-Trace) mg/dL Urine Glucose (UA) (Negative) mg/dL Urine Ketones (Negative) mg/dL Urine Blood (Negative) Urine Nitrite (Negative) Ur Leukocyte Esterase (Negative) Urine RBC (0-2) /HPF Urine WBC (0-5) /HPF Ur Squamous Epith Cells (0-2) /HPF Urine Bacteria (None Seen) Hyaline Casts (0-2) /LPF Influenza Type A (PCR) NEGATIVE (Negative) Influenza Type B (PCR) NEGATIVE (Negative) RSV RNA Qual (PCR) NEGATIVE (Negative) SARS-CoV-2 RNA (RT-PCR) NEGATIVE (Negative) 06/15/24 Range/Units 14:21 WBC (4.8-10.8) X10*3/uL RBC (4.60-5.80) X10*6/uL Hgb (14.0-18.0) g/dl Hct (42.0-52.0) % MCV (80.0-98.0) fL MCH (27.0-33.0) pg MCHC (31.0-36.0) g/dl RDW (11.0-16.0) % Plt Count (160-400) X10*3/uL MPV (9.4-12.4) fL Immature Gran % (Auto) (0.0-0.4) % Neut % (Auto) (45-73) % Lymph % (Auto) (20-40) % [place] % (Auto) (2-11) % Eos % (Auto) (0-4) % Baso % (Auto) (0-2) % Lymph # (Auto) (1.2-4.9) X10*3/uL [place] # (Auto) (0.1-1.2) X10*3/uL Eos # (Auto) (0.0-0.4) X10*3/uL Baso # (Auto) (0.0-0.2) X10*3/uL Abs Immat Gran (auto) (0.00-0.03) X10*3/uL Absolute Neuts (auto) (2.0-8.3) x10*3/uL Absolute Nucleated RBC (0.0-0.012) X10*3/uL Nucleated RBC % (auto) (0.0-0.2) /100WBC Sodium (135-145) mmol/L Potassium (3.3-5.1) mmol/L Chloride (96-108) mmol/L Carbon Dioxide (22-29) mmol/L Anion Gap (12-20) BUN (9-16) mg/dL Creatinine (0.5-1.4) mg/dL Estim Creat Clear Calc Estimated GFR Random Glucose (60-115) mg/dL Calcium (8.4-10.2) mg/dL Magnesium (1.6-2.6) mg/dL Total Bilirubin (0.0-1.0) mg/dL AST (5-37) U/L ALT (0-40) U/L Alkaline Phosphatase (39-117) U/L Troponin I High Sens (<3.5-35.0) ng/L B-Natriuretic Peptide (<100) pg/mL Total Protein (6.5-8.0) g/dL Albumin (3.5-5.0) g/dL Lipase (8-78) U/L Urine Color Yellow Urine Appearance Clear Urine pH 7.0 (5.0-9.0) Ur Specific [place] >= 1.030 H (1.005-1.025) Urine Protein Negative (Neg-Trace) mg/dL Urine Glucose (UA) Negative (Negative) mg/dL Urine Ketones Negative (Negative) mg/dL Urine Blood Negative (Negative) Urine Nitrite Negative (Negative) Ur Leukocyte Esterase Negative (Negative) Urine RBC 0-2 (0-2) /HPF Urine WBC 0-5 (0-5) /HPF Ur Squamous Epith Cells 0-2 (0-2) /HPF Urine Bacteria None Seen (None Seen) Hyaline Casts 0-2 (0-2) /LPF Influenza Type A (PCR) (Negative) Influenza Type B (PCR) (Negative) RSV RNA Qual (PCR) (Negative) SARS-CoV-2 RNA (RT-PCR) (Negative) Independent Interpretation I performed an independent interpretation of an: EKG, Plain X-Ray and CT Scan Interpretation: My interpretation is in agreement with the radiologist's impression of these imaging studies. L Report Number: [id number]: Total DLP = 459.00 mGy-cm CLINICAL HISTORY: abd pain CT ABDOMEN AND PELVIS WITH CONTRAST Comparison: CT/AZ/SR - CT ABDOMEN PELVIS W IV CON - 03/11/24 10:04 EST Findings: There is motion artifact. Bilateral lower lobe atelectasis and/or infiltrates. Suspect concomitant scarring. No pleural effusion. Cardiomegaly. No acute abnormalities in the solid organs or gallbladder. Diffuse fatty infiltration of the liver. Subtle surface nodularity suggests early cirrhotic morphology. No large calcified gallstone. No AAA. 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 No urolithiasis. Tiny left renal cortical hypodensities are too small to accurately characterize. No bowel obstruction, pneumoperitoneum, or pneumatosis. Multiple colonic diverticula. Mild paracolic fat stranding in the distal descending colon extends to the proximal sigmoid. No ascites or significant mesenteric edema. The appendix is not seen. Mild prostatomegaly. Questionable TURP defect. Prostatic calcifications. No acute fracture. IMPRESSION: Diverticulosis coli. Probable mild/early diverticulitis in the distal descending colon and proximal sigmoid. This document has been electronically signed by: Marcela Barone DO on 06/15/2024 13:52:13 Dictated By: Marcela Barone MD Signed By: Electronically signed by Marcela Barone MD 06/15/24 1353 CLINICAL HISTORY: weakness - unwell 1 view chest x-ray Comparison: CR/AZ/SR - XR CHEST 1V - 08/29/23 13:47 EDT Findings: Bilateral lower lobe opacities. No pleural effusion or pneumothorax. The cardiac silhouette is enlarged. No CHF. No acute fracture. IMPRESSION: Bilateral lower lobe opacities secondary to atelectasis, infiltrates or aspiration. This document has been electronically signed by: Marcela Barone DO on 06/15/2024 11:34:45 Dictated By: Marcela Barone MD Signed By: Electronically signed by Marcela Barone MD 06/15/24 1135 I independently interpreted this EKG and am in agreement with the below findings: Vent. Rate: 110 BPM Atrial Rate: * BPM P-R Int: * ms QRS Dur: 98 ms QT Int: 302 ms P-R-T Axes: * 7 177 degrees QTcB Int: 408 ms Atrial fibrillation with rapid ventricular response with premature ventricularor aberrantly conducted complexes Nonspecific ST and T wave abnormality When compared with ECG of 03-Mar-2024 23:54, Atrial fibrillation has replaced Sinus rhythm Vent. rate has increased by 45 bpm Nonspecific T wave abnormality has replaced inverted T waves in Lateral leads DD/ 1058 Radiology Impression Discussion of test interpretation with radiology: I have reviewed the radiologist's reading. Independent Historian Clinical information obtained from an independent historian. History obtained from or confirmed by: EMS (EMS provided additional history and confirmed the history provided by the patient.) Critical Care Time Critical Care Time Critical Care Time: Yes Total Critical Care Time: 41 Attestation: I spent 41 minutes of Critical Care Time with this patient. This does not include time spent on separately reported billable procedures. Discharge Plan Discharge Clinical Impression: Diverticulitis, Pneumonia, Atrial fibrillation with RVR Patient Disposition: Admitted As Inpatient
[2024-06-15 11:08] LABS: MANUAL DIFF FLAG NO
[2024-06-15 11:10] LABS: Basophils Percent Auto 0.4 % (0-2); Eosinophils Absolute Auto 0.1 X10*3/uL (0.0-0.4); Eosinophils Percent Auto 0.5 % (0-4); Hematocrit 43.4 % (42.0-52.0); Hemoglobin 15.4 g/dl (14.0-18.0); Imm Gran Abs Auto 0.02 X10*3/uL (0.00-0.03); Imm Gran Pct Auto 0.2 % (0.0-0.4); Lymphocytes Absolute Auto 2.4 X10*3/uL (1.2-4.9); Lymphocytes Percent Auto 26.2 % (20-40); Mean Corpuscular HGB Conc 35.5 g/dl (31.0-36.0); Mean Corpuscular Hemoglobin 32.5 pg (27.0-33.0); Mean Corpuscular Volume 91.6 fL (80.0-98.0); Mean Platelet Volume 10.2 fL (9.4-12.4); Monocytes Absolute Auto 0.7 X10*3/uL (0.1-1.2); Monocytes Percent Auto 7.2 % (2-11); Neutrophils Percent Auto 65.5 % (45-73); Platelet Count 201 X10*3/uL (160-400); Red Blood Count 4.74 X10*6/uL (4.60-5.80); Red Cell Distribution Width 12.7 % (11.0-16.0); White Blood Count 9.2 X10*3/uL (4.8-10.8)
[2024-06-15 11:26] LABS: Alanine Aminotransferase 36 U/L (0-40); Albumin Level 3.9 g/dL (3.5-5.0); Alkaline Phosphatase 86 U/L (39-117); Anion Gap 13 (12-20); Aspartate Amino Transferase 36 U/L (5-37); Bilirubin Total 1.2 mg/dL (0.0-1.0); Blood Urea Nitrogen 8 mg/dL (9-16); Calcium 8.9 mg/dL (8.4-10.2); Carbon Dioxide 21 mmol/L (22-29); Chloride 106 mmol/L (96-108); Creatinine Clr Calc Pharmacy 68.5; Estimated Glomerular Filt Rate > 60; Glucose Random 140 mg/dL (60-115); Potassium 3.4 mmol/L (3.3-5.1); Sodium 137 mmol/L (135-145); Total Protein 7.2 g/dL (6.5-8.0)
[2024-06-15 11:32] VITALS: BP 133/99; PULSE 96
[2024-06-15] MEDS: Pantoprazole Sodium 40 MG/10 ML VIAL IVPUSH (11:32)
[2024-06-15] MEDS: ondansetron HCL 4 MG/2 ML VIAL IVPUSH (11:32)
[2024-06-15] MEDS: Metoprolol Tartrate 25 MG TABLET PO (11:32)
[2024-06-15 11:33] LABS: Troponin-I High Sensitivity 13.4 ng/L (<3.5-35.0)
[2024-06-15 11:50] LABS: Lipase 16 U/L (8-78)
[2024-06-15 11:58] LABS: Influenza A PCR NEGATIVE (Negative); Influenza B PCR NEGATIVE (Negative); Resp Syncy Virus RNA Qual PCR NEGATIVE (Negative); SARS COV2 PCR INHOUSE NEGATIVE (Negative)
[2024-06-15 12:02] LABS: B Type Natriuretic Peptide 794 pg/mL (<100)
[2024-06-15] MEDS: iohexoL 350 MG/ML 100 ML INFUS..BTL IV (13:07)
[2024-06-15 13:52] LABS: Troponin-I High Sensitivity 12.3 ng/L (<3.5-35.0)
[2024-06-15] MEDS: cefTRIAXone sodium 1 GM VIAL IVPUSH (14:20)
[2024-06-15] MEDS: metroNIDAZOLE/NS 500 MG/100 ML PIGGYBACK 100 MG IV ×2 (14:20→22:37)
[2024-06-15 14:36] LABS: Appearance Urine Clear; Color Urine Yellow; Glucose Urine UA Negative (Negative); Leukocyte Esterase Urine Negative (Negative); Nitrite Urine Negative (Negative); Specific Gravity - Urine >= 1.030 (1.005-1.025); Urine Blood Negative (Negative); Urine Ketones Negative (Negative); Urine Protein Negative (Neg-Trace)
[2024-06-15 14:38] LABS: Bacteria Urine None Seen (None Seen); Hyaline Casts Urine 0-2 /LPF (0-2); RBC Urine 0-2 /HPF (0-2); Squamous Epithelial Cell Urine 0-2 /HPF (0-2); WBC Urine 0-5 /HPF (0-5)
--- NOTE | 2024-06-15 15:02 | P.HPHOSP_ITS ---
History of Present Illness Date of Service: 06/15/24 Chief Complaint: Abd pain A 79 years old male with PMH of asthma, CVA, DM, non-ishemic cardiomyopathy, fibromyalgia, BPH, erectile dysfunction, GERD, migraines, and hemorrhoids presenting with 3 days of nausea, vomiting and abd pain. The patient reports doing well until 3 days ago when he started to have unspecefic abdominal pain associated with nausea and episode of vomiting and diarrhea. No fever, chills, chest pain, palpitations, SOB or urinary symptoms. In ED found to have evidence of early diverticulitis on CT scan assocaited with Elevated BNP and CXR showing bilateral infiltrates\atelactasis. Noted to have newly onset Afib with RvR responded well to Metoprolol home dose. Start on IV Ceftriaxone and Flagyl. will need admission for further evaluation and treatment. Review of Systems 2 Review of Systems: No fever, chills or weakness No chest pain, palpitation No shortness of breath but has coughing reports abdominal pain, nausea or vomiting No urinary symptoms No any rash or wounds PMFSH Medical History Weak urinary stream Erectile dysfunction Bleeding hemorrhoids Diabetes mellitus Arteriosclerosis Cancer Pulmonary nodule Non-ischemic cardiomyopathy CVA (cerebral vascular accident) Arthritis Asthma GERD (gastroesophageal reflux disease) Elevated cholesterol Diastolic dysfunction Family History Father Prostate cancer Mother Parkinson disease Surgical History Hx of transurethral resection of prostate History of esophagogastroduodenoscopy (EGD) H/O colonoscopy Hx of cataract extraction History of ankle surgery History of surgical removal of skin lesion History of hemorrhoidectomy History of appendectomy Social History Household Members Other:: Daughter and grand child Alcohol intake: former Patient Tobacco Use Status: Former Tobacco user Advance Directives: No Advance Directives Information Provided: No Do you have a plan to hurt others: No Plan Meds Allergies Allergy/AdvReac Type Severity Reaction Status Date / Time lisinopril [LISINOPRIL] Allergy Intermediate COUGH Verified 06/15/24 10:53 oxycodone [From PERCOCET] Allergy Intermediate VOMITING Verified 06/15/24 10:53 alprazolam [From XANAX] AdvReac Intermediate VOMITING Verified 06/15/24 10:53 gabapentin AdvReac Abdominal Verified 06/15/24 10:53 Pain Home Medications ?Medication ?Instructions ?Recorded ?Confirmed ?Last Taken ?Type amitriptyline 25 mg tablet 25 mg PO DAILY 01/28/20 06/15/24 09/21/23 History albuterol sulfate 2.5 mg/3 mL 2.5 mg inhalation QID PRN Wheezing 06/11/20 06/15/24 Unknown History (0.083 %) solution for nebulization aspirin 81 mg tablet,delayed 81 mg PO DAILY 06/11/20 06/15/24 2 Weeks Ago History release ~06/01/24 atorvastatin 80 mg tablet 80 mg PO DAILY 06/11/20 06/15/24 2 Weeks Ago History ~06/01/24 multivitamin 1 tab PO DAILY 06/11/20 06/15/24 2 Weeks Ago History ~06/01/24 albuterol sulfate 90 mcg/actuation 2 puff inhalation Q6H PRN Wheezing 11/13/20 06/15/24 Unknown History aerosol inhaler (Ventolin HFA) blood sugar diagnostic (FreeStyle #10 ea 06/15/21 12/20/22 Unknown History Lite Strips) lancets 33 gauge (TRUEplus Lancets) #100 ea 06/15/21 12/20/22 Unknown History metoprolol tartrate 25 mg tablet 25 mg PO BEDTIME 08/26/22 06/15/24 2 Weeks Ago History ~06/01/24 metoprolol tartrate 25 mg tablet 50 mg PO DAILY 06/15/24 06/15/24 2 Weeks Ago History ~06/01/24 pantoprazole 40 mg tablet,delayed 40 mg PO DAILY@0630 06/15/24 06/15/24 2 Weeks Ago History release ~06/01/24 sumatriptan succinate 50 mg tablet 50 mg PO Q2H PRN Migraine Headache 06/15/24 06/15/24 Unknown History timolol maleate 0.5 % eye drops 1 drp ophthalmic-Right DAILY 06/15/24 06/15/24 2 Weeks Ago History ~06/01/24 triamcinolone acetonide 0.1 % 1 appl topical BID PRN pain and 06/15/24 06/15/24 Unknown History topical cream swelling Physical Exam 2 Vital Signs and Narrative: Vital Signs: Last Vital Signs Temp 97.9 F 06/15/24 10:51 Pulse 96 06/15/24 11:32 Resp 20 06/15/24 10:51 BP 133/99 H 06/15/24 11:32 Pulse Ox 95 06/15/24 10:51 O2 Del Method Room Air 06/15/24 10:51 BMI result Body Mass Index 25.8 Const: Other: Constitutional : Awake, interactive, not in distress Neck : Normal inspection, Supple Cardiovascular : RRR, no JVP, no lower extremity edema Respiratory : good bilateral air entry, no crackles, wheezes or rhonchi Gastrointestinal: soft, lax, Normal bowel sounds, generalized mild tenderness with no surgical signs Skin : Warm, Dry Neurological : Alert & oriented x3, No focal deficit Results Labs 06/15/24 11:03 06/15/24 11:03 Labs: Laboratory Results - last 24 hr 06/15/24 06/15/24 06/15/24 11:03 11:11 14:21 MCV 91.6 MCH 32.5 MCHC 35.5 RDW 12.7 Plt Count 201 MPV 10.2 Immature Gran % (Auto) 0.2 Neut % (Auto) 65.5 Lymph % (Auto) 26.2 [place] % (Auto) 7.2 Eos % (Auto) 0.5 Baso % (Auto) 0.4 Lymph # (Auto) 2.4 [place] # (Auto) 0.7 Eos # (Auto) 0.1 Baso # (Auto) 0.0 Abs Immat Gran (auto) 0.02 Absolute Neuts (auto) 6.0 Absolute Nucleated RBC 0.000 Nucleated RBC % (auto) 0.0 Anion Gap 13 Estim Creat Clear Calc 68.5 Estimated GFR > 60 Random Glucose 140 H Calcium 8.9 Magnesium 2.0 Total Bilirubin 1.2 H AST 36 ALT 36 Alkaline Phosphatase 86 B-Natriuretic Peptide 794 H Total Protein 7.2 Albumin 3.9 Lipase 16 Urine Color Yellow Urine Appearance Clear Urine pH 7.0 Ur Specific [place] >= 1.030 H Urine Protein Negative Urine Glucose (UA) Negative Urine Ketones Negative Urine Blood Negative Urine Nitrite Negative Ur Leukocyte Esterase Negative Urine RBC 0-2 Urine WBC 0-5 Ur Squamous Epith Cells 0-2 Urine Bacteria None Seen Hyaline Casts 0-2 Influenza Type A (PCR) NEGATIVE Influenza Type B (PCR) NEGATIVE RSV RNA Qual (PCR) NEGATIVE SARS-CoV-2 RNA (RT-PCR) NEGATIVE Assessment and Plan (1) Atrial fibrillation with RVR: Status: Acute (2) Diverticulitis: Status: Acute (3) Pneumonia: Status: Acute Plan A 79 years old male with PMH of asthma, CVA, DM, non-ishemic cardiomyopathy, fibromyalgia, BPH, erectile dysfunction, GERD, migraines, and hemorrhoids presenting with 3 days of nausea, vomiting and abd pain. Acute Diverticulitis Not septic CT as reported pending cultures Start Ceftriaxone and Flagyl Advance diet as tolerated New onset Afib w RvR Controlled with Metoprolol check ECHO Keep on Tele Start Eliquis Continue home dose Metoprolol Cardiology consult Diastolic heart failure Elevated BNP no hypoxia or edema Hold on Lasix now pending Echo Bilateral pneumonia not septic IV Antibiotics Incentive spirometry Mucinex Hx CVA Statin, change ASA to Eliquis GERD PPI DVT PPx Eliquis The paitnet will need 2 overnight hospital stay for treatment of Diverticulitis and Newly diagnosed Afib pending cardiology evaluation Quality Stroke Does the patient have a stroke diagnosis?: No VTE Prior VTE?: No VTE Risk Level:: Medical - moderate - high VTE Device Contraindication: Treatment Not Indicated VTE Drug Contraindication: N/A - Med Ordered
--- NOTE | 2024-06-15 15:23 | PHA.MEDREC ---
Addendum entered by Laureano Figueroa 06/15/24 15:37: reviewed Original Note: Pharmacy Consult ? Medication Reconciliation Pharmacy has completed the medication reconciliation. Spoke to pt to confirm meds. 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
[2024-06-15 16:06] VITALS: BP 112/69; PULSE 78; RESP 20; O2SAT 93
[2024-06-15 20:21] VITALS: BP 115/73; PULSE 78; RESP 23; TEMP 36.6; O2SAT 95
[2024-06-15] MEDS: Apixaban 5 MG TABLET PO (22:37)
[2024-06-15 22:44] VITALS: BP 125/69; PULSE 85; RESP 17; TEMP 36.6; O2SAT 93
[2024-06-16 01:53] VITALS: BP 134/92; PULSE 77; RESP 12; O2SAT 96
[2024-06-16 03:54] VITALS: BMI 24.8
[2024-06-16 04:00] VITALS: BP 128/83; PULSE 92; RESP 16; TEMP 36.3; O2SAT 94
[2024-06-16 07:01] VITALS: BP 127/95; PULSE 81; RESP 18; TEMP 36.4; O2SAT 94
[2024-06-16] MEDS: metroNIDAZOLE/NS 500 MG/100 ML PIGGYBACK 100 MG IV ×3 (07:24→21:32)
[2024-06-16] MEDS: Apixaban 5 MG TABLET PO ×2 (08:01→21:32)
[2024-06-16 08:28] LABS: MANUAL DIFF FLAG NO
[2024-06-16 08:47] LABS: Basophils Percent Auto 0.4 % (0-2); Eosinophils Absolute Auto 0.1 X10*3/uL (0.0-0.4); Eosinophils Percent Auto 1.2 % (0-4); Hematocrit 38.4 % (42.0-52.0); Imm Gran Abs Auto 0.04 X10*3/uL (0.00-0.03); Imm Gran Pct Auto 0.5 % (0.0-0.4); Lymphocytes Absolute Auto 2.1 X10*3/uL (1.2-4.9); Lymphocytes Percent Auto 29.2 % (20-40); Mean Corpuscular HGB Conc 33.9 g/dl (31.0-36.0); Mean Corpuscular Hemoglobin 32.3 pg (27.0-33.0); Mean Corpuscular Volume 95.3 fL (80.0-98.0); Mean Platelet Volume 10.8 fL (9.4-12.4); Monocytes Absolute Auto 0.7 X10*3/uL (0.1-1.2); Monocytes Percent Auto 9.3 % (2-11); Neutrophils Absolute Auto 4.4 x10*3/uL (2.0-8.3); Neutrophils Percent Auto 59.4 % (45-73); Platelet Count 181 X10*3/uL (160-400); Red Blood Count 4.03 X10*6/uL (4.60-5.80); Red Cell Distribution Width 12.8 % (11.0-16.0); White Blood Count 7.3 X10*3/uL (4.8-10.8)
[2024-06-16 09:08] LABS: Alanine Aminotransferase 25 U/L (0-40); Alkaline Phosphatase 65 U/L (39-117); Anion Gap 14 (12-20); Aspartate Amino Transferase 31 U/L (5-37); Bilirubin Total 0.8 mg/dL (0.0-1.0); Blood Urea Nitrogen 5 mg/dL (9-16); Calcium 7.1 mg/dL (8.4-10.2); Carbon Dioxide 20 mmol/L (22-29); Chloride 108 mmol/L (96-108); Creatinine Clr Calc Pharmacy 72.9; Estimated Glomerular Filt Rate > 60; Glucose Random 92 mg/dL (60-115); Sodium 139 mmol/L (135-145); Total Protein 5.6 g/dL (6.5-8.0)
--- NOTE | 2024-06-16 10:05 | P.CONCA_ITS ---
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 [age] year gentleman presenting with abdominal pain and diverticulitis. He has been on antibiotics. There is also concern for pneumonia. He has been noticed to be in AFib with RVR. This is a new diagnosis for him. He has known history of stroke in the past. He also has hypertension. There is no recent echocardiogram in our system. In his history there is nonischemic cardiomyopathy documented but he does not have any medications that go along with history of cardiomyopathy. He has mild abdominal discomfort otherwise denying any cardiovascular symptoms. Telemetry is showing rate controlled atrial fibrillation. [facility] Past Medical History Medical History Weak urinary stream Erectile dysfunction Bleeding hemorrhoids Diabetes mellitus Arteriosclerosis Cancer Pulmonary nodule Non-ischemic cardiomyopathy CVA (cerebral vascular accident) Arthritis Asthma GERD (gastroesophageal reflux disease) Elevated cholesterol Diastolic dysfunction Family History Family History Father Prostate cancer Mother Parkinson disease Surgical History Surgical History Hx of transurethral resection of prostate History of esophagogastroduodenoscopy (EGD) H/O colonoscopy Hx of cataract extraction History of ankle surgery History of surgical removal of skin lesion History of hemorrhoidectomy History of appendectomy Social History Social History Household Members: Children and Other Household Members Other:: two grandchild Housing: Apartment Do you presently have visiting nurse or other home services: Yes Alcohol intake: former Patient Tobacco Use Status: Former Tobacco user Second Hand Smoke Exposure: No service: No Meds Allergies Allergy/AdvReac Type Severity Reaction Status Date / Time lisinopril [LISINOPRIL] Allergy Intermediate COUGH Verified 06/15/24 10:53 oxycodone [From PERCOCET] Allergy Intermediate VOMITING Verified 06/15/24 10:53 alprazolam [From XANAX] AdvReac Intermediate VOMITING Verified 06/15/24 10:53 gabapentin AdvReac Abdominal Verified 06/15/24 10:53 Pain Active Medications: Current Medications Acetaminophen (Acetaminophen 325 Mg Tablet) 650 mg PO Q6H PRN PRN Reason: Pain, Mild 1-3,fever,headache Apixaban (Apixaban 5 Mg Tablet) 5 mg PO BID [facility] Last Admin: 06/16/24 08:01 Dose: 5 mg Benzonatate (Benzonatate 100 Mg Capsule) 100 mg PO TID PRN PRN Reason: Cough Ceftriaxone Sodium (Ceftriaxone Sodium 1 Gm Vial) 1 gm IVPUSH Q24H [facility] Metronidazole (Flagyl) 500 mg in 100 mls @ 100 mls/hr IV Q8H [facility] Last Infusion: 06/16/24 08:35 Dose: Infused Ondansetron HCl (Ondansetron Hcl 4 Mg/2 Ml Vial) 4 mg IVPUSH Q8H PRN PRN Reason: Nausea and Vomiting Home Medications ?Medication ?Instructions ?Recorded ?Confirmed ?Last Taken ?Type amitriptyline 25 mg tablet 25 mg PO DAILY 01/28/20 06/15/24 09/21/23 History albuterol sulfate 2.5 mg/3 mL 2.5 mg inhalation QID PRN Wheezing 06/11/20 06/15/24 Unknown History (0.083 %) solution for nebulization aspirin 81 mg tablet,delayed 81 mg PO DAILY 06/11/20 06/15/24 2 Weeks Ago History release ~06/01/24 atorvastatin 80 mg tablet 80 mg PO DAILY 06/11/20 06/15/24 2 Weeks Ago History ~06/01/24 multivitamin 1 tab PO DAILY 06/11/20 06/15/24 2 Weeks Ago History ~06/01/24 albuterol sulfate 90 mcg/actuation 2 puff inhalation Q6H PRN Wheezing 11/13/20 06/15/24 Unknown History aerosol inhaler (Ventolin HFA) blood sugar diagnostic (FreeStyle #10 ea 06/15/21 12/20/22 Unknown History Lite Strips) lancets 33 gauge (TRUEplus Lancets) #100 ea 06/15/21 12/20/22 Unknown History metoprolol tartrate 25 mg tablet 25 mg PO BEDTIME 08/26/22 06/15/24 2 Weeks Ago History ~06/01/24 metoprolol tartrate 25 mg tablet 50 mg PO DAILY 06/15/24 06/15/24 2 Weeks Ago History ~06/01/24 pantoprazole 40 mg tablet,delayed 40 mg PO DAILY@0630 06/15/24 06/15/24 2 Weeks Ago History release ~06/01/24 sumatriptan succinate 50 mg tablet 50 mg PO Q2H PRN Migraine Headache 06/15/24 06/15/24 Unknown History timolol maleate 0.5 % eye drops 1 drp ophthalmic-Right DAILY 06/15/24 06/15/24 2 Weeks Ago History ~06/01/24 triamcinolone acetonide 0.1 % 1 appl topical BID PRN pain and 06/15/24 06/15/24 Unknown History topical cream swelling Physical Exam 2 Vital Signs: Vital Signs: Last Vital Signs Temp 97.6 F 06/16/24 07:01 Pulse 81 06/16/24 07:01 Resp 18 06/16/24 07:01 BP 127/95 H 06/16/24 07:01 Pulse Ox 94 06/16/24 07:01 O2 Del Method Room Air 06/16/24 07:01 BMI result Body Mass Index 24.8 GENERAL APPEARANCE: in no acute distress, pleasant. NECK: no carotid bruit, no jugular venous distention. SKIN: no suspicious lesions, warm and dry. HEART: no murmurs, irregular rate and rhythm. LUNGS: clear to auscultation bilaterally. ABDOMEN: soft, mild tenderness left lower quadrant. EXTREMITIES: no edema. PERIPHERAL PULSES: equal. NEUROLOGIC: No gross deficits, AAO X 3 Objective Labs and Meds 06/16/24 07:40 06/16/24 07:40 Lab results: Laboratory Results - last 24 hr 06/15/24 06/15/24 06/15/24 11:03 11:11 13:16 WBC 9.2 RBC 4.74 Hgb 15.4 Hct 43.4 MCV 91.6 MCH 32.5 MCHC 35.5 RDW 12.7 Plt Count 201 MPV 10.2 Immature Gran % (Auto) 0.2 Neut % (Auto) 65.5 Lymph % (Auto) 26.2 [place] % (Auto) 7.2 Eos % (Auto) 0.5 Baso % (Auto) 0.4 Lymph # (Auto) 2.4 [place] # (Auto) 0.7 Eos # (Auto) 0.1 Baso # (Auto) 0.0 Abs Immat Gran (auto) 0.02 Absolute Neuts (auto) 6.0 Absolute Nucleated RBC 0.000 Nucleated RBC % (auto) 0.0 Sodium 137 Potassium 3.4 Chloride 106 Carbon Dioxide 21 L Anion Gap 13 BUN 8 L Creatinine 0.83 Estim Creat Clear Calc 68.5 Estimated GFR > 60 Random Glucose 140 H Calcium 8.9 Magnesium 2.0 Total Bilirubin 1.2 H AST 36 ALT 36 Alkaline Phosphatase 86 Troponin I High Sens 13.4 12.3 B-Natriuretic Peptide 794 H Total Protein 7.2 Albumin 3.9 Lipase 16 Urine Color Urine Appearance Urine pH Ur Specific [place] Urine Protein Urine Glucose (UA) Urine Ketones Urine Blood Urine Nitrite Ur Leukocyte Esterase Urine RBC Urine WBC Ur Squamous Epith Cells Urine Bacteria Hyaline Casts Influenza Type A (PCR) NEGATIVE Influenza Type B (PCR) NEGATIVE RSV RNA Qual (PCR) NEGATIVE SARS-CoV-2 RNA (RT-PCR) NEGATIVE 06/15/24 06/16/24 14:21 07:40 WBC 7.3 RBC 4.03 L Hgb 13.0 L Hct 38.4 L MCV 95.3 MCH 32.3 MCHC 33.9 RDW 12.8 Plt Count 181 MPV 10.8 Immature Gran % (Auto) 0.5 H Neut % (Auto) 59.4 Lymph % (Auto) 29.2 [place] % (Auto) 9.3 Eos % (Auto) 1.2 Baso % (Auto) 0.4 Lymph # (Auto) 2.1 [place] # (Auto) 0.7 Eos # (Auto) 0.1 Baso # (Auto) 0.0 Abs Immat Gran (auto) 0.04 H Absolute Neuts (auto) 4.4 Absolute Nucleated RBC 0.000 Nucleated RBC % (auto) 0.0 Sodium 139 Potassium 3.0 L Chloride 108 Carbon Dioxide 20 L Anion Gap 14 BUN 5 L Creatinine 0.78 Estim Creat Clear Calc 72.9 Estimated GFR > 60 Random Glucose 92 Calcium 7.1 L D Magnesium Total Bilirubin 0.8 AST 31 ALT 25 Alkaline Phosphatase 65 Troponin I High Sens B-Natriuretic Peptide Total Protein 5.6 L Albumin 3.0 L Lipase Urine Color Yellow Urine Appearance Clear Urine pH 7.0 Ur Specific [place] >= 1.030 H Urine Protein Negative Urine Glucose (UA) Negative Urine Ketones Negative Urine Blood Negative Urine Nitrite Negative Ur Leukocyte Esterase Negative Urine RBC 0-2 Urine WBC 0-5 Ur Squamous Epith Cells 0-2 Urine Bacteria None Seen Hyaline Casts 0-2 Influenza Type A (PCR) Influenza Type B (PCR) RSV RNA Qual (PCR) SARS-CoV-2 RNA (RT-PCR) Assessment and Plan (1) Atrial fibrillation with RVR: Status: Acute Plan 79-year-old gentleman presenting with diverticulitis and pneumonia and is noticed to be in atrial fibrillation with rapid ventricular response. This is a new diagnosis for him. He is high-risk given known history of stroke in the past and history of hypertension and age more than 75. If no surgical plans for diverticulitis and anticoagulation should be started. Currently we should try rate control strategy. Metoprolol 50 mg twice a day. Echocardiography tomorrow. As he improves potential discharge home and follow up with Dr. Leal. Thank you for allowing me to participate in the care of your patient. Please feel free to contact me if you have any questions. Procedures Date of Service Date of Service: 06/16/24
--- NOTE | 2024-06-16 10:31 | MHC.CM.PN ---
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
[2024-06-16 11:08] VITALS: BP 128/70; PULSE 88; RESP 18; TEMP 35.6; O2SAT 100
--- NOTE | 2024-06-16 12:03 | HO.PM.IMPN ---
Subjective Subjective Date of Service: 06/16/24 Interval History: feels better HR better controlled no fever or chills breathing better no other events Review of Systems No fever, chills or weakness No chest pain, palpitation No shortness of breath but has coughing improved abdominal pain, nausea or vomiting No urinary symptoms No any rash or wounds Physical Exam Vital Signs: Vital Signs: Last Vital Signs Temp 96.1 F L 06/16/24 11:08 Pulse 88 06/16/24 11:08 Resp 18 06/16/24 11:08 BP 128/70 06/16/24 11:08 Pulse Ox 100 06/16/24 11:08 O2 Del Method Room Air 06/16/24 11:08 BMI result Body Mass Index 24.8 Const: Other: Constitutional : Awake, interactive, not in distress Neck : Normal inspection, Supple Cardiovascular : irregular irregular, no JVP, no lower extremity edema Respiratory : good bilateral air entry, no crackles, wheezes or rhonchi Gastrointestinal: soft, lax, Normal bowel sounds, generalized mild tenderness with no surgical signs Skin : Warm, Dry Neurological : Alert & oriented x3, No focal deficit Objective Data Active Medications Acetaminophen (Acetaminophen 325 Mg Tablet) 650 mg PO Q6H PRN PRN Reason: Pain, Mild 1-3,fever,headache Apixaban (Apixaban 5 Mg Tablet) 5 mg PO BID [facility] Last Admin: 06/16/24 08:01 Dose: 5 mg Documented By: BEULAH Benzonatate (Benzonatate 100 Mg Capsule) 100 mg PO TID PRN PRN Reason: Cough Ceftriaxone Sodium (Ceftriaxone Sodium 1 Gm Vial) 1 gm IVPUSH Q24H [facility] Metronidazole (Flagyl) 500 mg in 100 mls @ 100 mls/hr IV Q8H [facility] Last Infusion: 06/16/24 08:35 Dose: Infused Documented By: BEULAH Ondansetron HCl (Ondansetron Hcl 4 Mg/2 Ml Vial) 4 mg IVPUSH Q8H PRN PRN Reason: Nausea and Vomiting Labs 06/16/24 07:40 06/16/24 07:40 Labs: Laboratory Results - last 24 hr 06/15/24 06/16/24 14:21 07:40 MCV 95.3 MCH 32.3 MCHC 33.9 RDW 12.8 Plt Count 181 MPV 10.8 Immature Gran % (Auto) 0.5 H Neut % (Auto) 59.4 Lymph % (Auto) 29.2 [place] % (Auto) 9.3 Eos % (Auto) 1.2 Baso % (Auto) 0.4 Lymph # (Auto) 2.1 [place] # (Auto) 0.7 Eos # (Auto) 0.1 Baso # (Auto) 0.0 Abs Immat Gran (auto) 0.04 H Absolute Neuts (auto) 4.4 Absolute Nucleated RBC 0.000 Nucleated RBC % (auto) 0.0 Anion Gap 14 Estim Creat Clear Calc 72.9 Estimated GFR > 60 Random Glucose 92 Calcium 7.1 L D Total Bilirubin 0.8 AST 31 ALT 25 Alkaline Phosphatase 65 Total Protein 5.6 L Albumin 3.0 L Urine Color Yellow Urine Appearance Clear Urine pH 7.0 Ur Specific [place] >= 1.030 H Urine Protein Negative Urine Glucose (UA) Negative Urine Ketones Negative Urine Blood Negative Urine Nitrite Negative Ur Leukocyte Esterase Negative Urine RBC 0-2 Urine WBC 0-5 Ur Squamous Epith Cells 0-2 Urine Bacteria None Seen Hyaline Casts 0-2 Assessment and Plan (1) Atrial fibrillation with RVR: Status: Acute (2) Pneumonia: Status: Acute (3) Diverticulitis: Status: Acute Plan A 79 years old male with PMH of asthma, CVA, DM, non-ishemic cardiomyopathy, fibromyalgia, BPH, erectile dysfunction, GERD, migraines, and hemorrhoids presenting with 3 days of nausea, vomiting and abd pain. Acute Diverticulitis Not septic CT as reported pending cultures Start Ceftriaxone and Flagyl Advance diet as tolerated New onset Afib w RvR Increase Metoprolol to 50mg bid check ECHO Keep on Tele Start Eliquis Continue home dose Metoprolol Cardiology consult Diastolic heart failure Elevated BNP no hypoxia or edema Hold on Lasix now pending Echo Bilateral pneumonia not septic IV Antibiotics Incentive spirometry Mucinex Hx CVA Statin, change ASA to Eliquis GERD PPI DVT PPx Eliquis The paitnet will need overnight hospital stay for treatment of Diverticulitis and Newly diagnosed Afib pending Echo and final culture Quality Stroke Does the patient have a stroke diagnosis?: No VTE Prior VTE?: No VTE Risk Level:: Medical - moderate - high VTE Device Contraindication: Treatment Not Indicated VTE Drug Contraindication: N/A - Med Ordered
[2024-06-16] MEDS: Potassium Chloride Packet 20 MEQ PACKET 40 MEQ PO ×2 (14:29→15:54)
[2024-06-16] MEDS: cefTRIAXone sodium 1 GM VIAL IVPUSH (14:34)
[2024-06-16 15:04] VITALS: BP 155/82; PULSE 82; RESP 18; TEMP 36.2; O2SAT 98
[2024-06-16 19:47] VITALS: BP 144/78; PULSE 94; RESP 15; TEMP 36.2; O2SAT 94
[2024-06-17] VITALS (9 sets, daily range): BP systolic 124–145; BP diastolic 79–98; PULSE 77–129; RESP 15–20; TEMP 36.1–37.2; O2SAT 92–98
[2024-06-17] MEDS: hydrOXYzine HCL 25 MG TABLET PO (03:27)
[2024-06-17] MEDS: metroNIDAZOLE/NS 500 MG/100 ML PIGGYBACK 100 MG IV ×3 (06:26→21:32)
[2024-06-17 06:27] LABS: MANUAL DIFF FLAG NO
[2024-06-17 06:46] LABS: Anion Gap 11 (12-20); Blood Urea Nitrogen 7 mg/dL (9-16); Calcium 8.9 mg/dL (8.4-10.2); Carbon Dioxide 23 mmol/L (22-29); Chloride 109 mmol/L (96-108); Creatinine Clr Calc Pharmacy 70.2; Estimated Glomerular Filt Rate > 60; Glucose Random 121 mg/dL (60-115); Potassium 4.2 mmol/L (3.3-5.1); Sodium 139 mmol/L (135-145)
[2024-06-17 07:00] LABS: Basophils Percent Auto 0.2 % (0-2); Eosinophils Absolute Auto 0.1 X10*3/uL (0.0-0.4); Eosinophils Percent Auto 0.9 % (0-4); Hematocrit 43.7 % (42.0-52.0); Imm Gran Abs Auto 0.04 X10*3/uL (0.00-0.03); Imm Gran Pct Auto 0.5 % (0.0-0.4); Lymphocytes Absolute Auto 1.8 X10*3/uL (1.2-4.9); Lymphocytes Percent Auto 21.7 % (20-40); Mean Corpuscular HGB Conc 34.3 g/dl (31.0-36.0); Mean Corpuscular Hemoglobin 32.7 pg (27.0-33.0); Mean Corpuscular Volume 95.2 fL (80.0-98.0); Mean Platelet Volume 11.1 fL (9.4-12.4); Monocytes Absolute Auto 0.7 X10*3/uL (0.1-1.2); Monocytes Percent Auto 7.9 % (2-11); Neutrophils Absolute Auto 5.8 x10*3/uL (2.0-8.3); Neutrophils Percent Auto 68.8 % (45-73); Platelet Count 197 X10*3/uL (160-400); Red Blood Count 4.59 X10*6/uL (4.60-5.80); Red Cell Distribution Width 12.8 % (11.0-16.0); White Blood Count 8.5 X10*3/uL (4.8-10.8)
--- NOTE | 2024-06-17 07:00 | CA_ITS ---
Transthoracic Echocardiogram Patient (Last, First, Middle): Shelton Davis, Gender: Male Date of : 1945 Age: 79 Procedure Date: 06/17/2024 Procedure Type: Transthoracic Echocardiogram Location: [facility] [place] Height: 170.18 cm Weight: 71.67 kg BSA: 1.83 m2 Heart Rate: bpm BP: 138 / 98 mmHg Mat Weaver: Referring MD: Rhea Moy MD Electromechanical Equipment Assembler: Kurt Galeana MD Symptoms: new onset Afib Study Quality: Adequate w Contrast ECG Rhythm: Atrial Fibrillation Conclusions: - 1. Severely reduced LV ejection fraction 15-20% 2. Mild mitral regurgitation 3. No gross pericardial effusion Findings Procedure Information Contrast agent, definity, is being given per protocol without apparent complications. Left Ventricle Normal left ventricular cavity size. There is normal left ventricular wall thickness. The left ventricular systolic function is severely decreased. The visually estimated ejection fraction is between 15-20%. There is severe global hypokinesis. Diastolic function is indeterminate on the basis of available data. Right Ventricle Normal right ventricular cavity size. There is borderline right ventricular systolic function. Atria The left atrium is likely dilated. There is no evidence of interatrial shunt. The right atrium is likely dilated. Aortic Valve Normal aortic valve structure and function. There is no aortic valve stenosis. There is no aortic valve regurgitation. Mitral Valve Normal mitral valve structure and function. There is mild mitral valve regurgitation. There is no mitral valve stenosis. Pulmonic Valve The pulmonic valve was not well visualized. Tricuspid Valve The tricuspid valve was not well visualized. Normal right atrial pressure. Great Vessels The pulmonary artery was not well visualized. There is no dilatation of the ascending aorta measuring 3.20 cm. Venous The inferior vena cava is normal in size and collapses greater than 50% with inspiration. Pericardium/Pleural There is no evidence of pericardial effusion. Measurements 2D Linear Measurements IVSd: 1.11 0.6-0.9/0.6-1.0 cm LVIDd: 5.05 3.9-5.3/4.2-5.9 cm LVIDd Index: 2.76 2.4-3.2/2.2-3.1 cm/m2 LVIDs: 4.29 2.0-3.6 cm LVPWd: 1.06 0.7-1.1 cm Ao Root: 3.10 2.1-3.5 cm LA Diam: 4.70 2.7-3.8/3.0-4.0 cm LAIDs Index: 2.57 1.5-2.3 cm/m2 LV Mass: 257.48 67-162/88-224 g LV Mass Index: 140.70 43-95/49-115 g/m2 LVOT Diam: 2.20 3.0+(-)1.3 cm 2D Systolic Function EF 4C: 18.20 >55% EF 2C: 18.60 >55% EF BiP: 17.00 >55% Mitral Valve MV Pk E: 0.85 MV Decel Time: 129.00 E'Lateral: 6.96 E'Medial: 4.13 E/E' Med: 20.70 E/E' Lat: 12.30 PHT: 38.00 MVA PHT: 5.79 Decel Berks: 6.59 Aortic Valve AoV Pk Ari: 0.90 AoV Mn Ari: 0.61 AoV VTI: 0.20 AoV Pk Grad: 3.00 Aov Mn Grad: 2.00 KATHERIN Cont.VTI: 2.21 LVOT LVOT Pk Ari: 0.60 LVOT Mn Ari: 0.40 LVOT VTI: 0.11 LVOT Pk Grad: 1.00 LVOT Mn Grad: 1.00 LVOT Diam: 2.20 LVOT Area: 3.80 Diastolic Function MV Pk E: 0.85 E'Medial: 4.13 E/E' Med: 20.70 E' Laterial: 6.96 E/E' Lat: 12.30 Right Ventricle TAPSE (mm): 17.00 TVS' Ari: 11.00 Tricuspid Valve TR Pk Ari: 2.79 TR Pk Grad: 31.00 Great Vessels Aorta Ao Root-2D: 3.10 2.0-3.7 cm Ao Asc: 3.20 2.1-3.4 cm Pulmonary Valve PV Pk Ari: 0.69 Peak PV Grad: 2.00 Updated in Other Vendor System with Status of Final Kurt Galeana MD electronically signed on 06/17/2024 4:18:29 PM with status of Final
[2024-06-17] MEDS: Multivitamin TABLET 1 TAB PO (08:17)
[2024-06-17] MEDS: Apixaban 5 MG TABLET PO ×2 (08:17→21:32)
[2024-06-17] MEDS: Metoprolol Tartrate 50 MG TABLET PO ×2 (08:17→21:32)
[2024-06-17] MEDS: Amitriptyline HCl 25 MG TABLET PO (08:17)
[2024-06-17] MEDS: Atorvastatin Calcium 80 MG TABLET PO (08:17)
[2024-06-17] MEDS: timoloL maleate 0.5 % Oph Sol 5 ML DRBTL 1 DROP EYE-RIGHT (08:39)
--- NOTE | 2024-06-17 10:01 | P.PNCA_ITS ---
Subjective Subjective Date of Service: 06/17/24 Principal diagnosis: atrial fibrillation. Interval history: Patient denies any cardiac symptoms. Denies any palpitation, chest pain, shortness of breath. Continues to have belly discomfort and had 3 episodes of diarrhea this morning. Review of Systems Constitutional: Reports weakness Eyes: Reports no additional eye complaints Cardiovascular: Reports no additional cardiovascular complaints Respiratory: Reports no additional respiratory complaints Gastrointestinal: Reports abdominal pain and Reports diarrhea Genitourinary: Reports no additional male genitourinary complaints Reports weakness Physical Exam Vital Signs: Last Vital Signs Temp 99.0 F 06/17/24 07:25 Pulse 105 H 06/17/24 07:25 Resp 15 06/17/24 07:25 BP 141/91 H 06/17/24 07:25 Pulse Ox 96 06/17/24 07:25 O2 Del Method Room Air 06/17/24 07:25 BMI result Body Mass Index 24.8 GENERAL APPEARANCE: in no acute distress, pleasant. NECK: no carotid bruit, no jugular venous distention. SKIN: no suspicious lesions, warm and dry. HEART: no murmurs, irregular rate and rhythm. LUNGS: clear to auscultation bilaterally. ABDOMEN: soft, mild tenderness left lower quadrant. EXTREMITIES: no edema. PERIPHERAL PULSES: equal. NEUROLOGIC: No gross deficits, AAO X 3 Objective Labs and Meds 06/17/24 06:00 06/17/24 06:00 Lab results: Laboratory Results - last 24 hr 06/17/24 06:00 WBC 8.5 RBC 4.59 L Hgb 15.0 Hct 43.7 MCV 95.2 MCH 32.7 MCHC 34.3 RDW 12.8 Plt Count 197 MPV 11.1 Immature Gran % (Auto) 0.5 H Neut % (Auto) 68.8 Lymph % (Auto) 21.7 Hettinger % (Auto) 7.9 Eos % (Auto) 0.9 Baso % (Auto) 0.2 Lymph # (Auto) 1.8 [place]tinger # (Auto) 0.7 Eos # (Auto) 0.1 Baso # (Auto) 0.0 Abs Immat Gran (auto) 0.04 H Absolute Neuts (auto) 5.8 Absolute Nucleated RBC 0.000 Nucleated RBC % (auto) 0.0 Sodium 139 Potassium 4.2 D Chloride 109 H Carbon Dioxide 23 Anion Gap 11 L BUN 7 L Creatinine 0.81 Estim Creat Clear Calc 70.2 Estimated GFR > 60 Random Glucose 121 H Calcium 8.9 D Progress Note: A&P Assessment and plan (1) Atrial fibrillation with RVR: Status: Acute Assessment and Plan: Atrial fibrillation with borderline rate control. Increase metoprolol to 50 mg q.8 hours. Continue rate control approach at this point time. Continue to treat his underlying medical/ surgical illness as planned. Has been started on oral anticoagulation with Eliquis appropriately. Continue that. Plan for rhythm control as outpatient with his own [employer]. Will need a Holter monitor as an outpatient. Will sign of the case. Thank you for allowing me to partake in his care Time Spent With Patient Time: Total time managing care of this patient today ____ minutes. Progress Note: Quality Stroke Does the patient have a stroke diagnosis?: No Procedures Date of Service Date of Service: 06/17/24
--- NOTE | 2024-06-17 13:13 | MHC.CM.PN ---
Per rounds, pt is not yet ready to DC, anticipate he may DC tomorrow. DCP is home, resume home care services.
[2024-06-17] MEDS: cefTRIAXone sodium 1 GM VIAL IVPUSH (13:34)
--- NOTE | 2024-06-17 13:45 | P.PNIM_ITS ---
Subjective Subjective Date of Service: 06/17/24 Interval History: feels better HR better controlled abdominal pain improving tolerating PO no other events Review of Systems Review of Systems: Yes all other systems are reviewed and are negative Physical Exam 2 Vital Signs: Vital Signs: Last Vital Signs Temp 98.1 F 06/17/24 11:12 Pulse 77 06/17/24 11:12 Resp 16 06/17/24 11:12 BP 124/79 06/17/24 11:12 Pulse Ox 95 06/17/24 11:12 O2 Del Method Room Air 06/17/24 11:12 BMI result Body Mass Index 24.8 Const: Other: Constitutional : Awake, interactive, not in distress Neck : Normal inspection, Supple Cardiovascular : irregular irregular, no JVP, no lower extremity edema Respiratory : good bilateral air entry, no crackles, wheezes or rhonchi Gastrointestinal: soft, lax, Normal bowel sounds, generalized mild tenderness with no surgical signs Skin : Warm, Dry Neurological : Alert & oriented x3, No focal deficit Objective Data Active Medications Acetaminophen (Acetaminophen 325 Mg Tablet) 650 mg PO Q6H PRN PRN Reason: Pain, Mild 1-3,fever,headache Albuterol Sulfate (Albuterol Sulfate (0.083%) 2.5 Mg/3 Ml Vial.Neb) 2.5 mg INHALE QID PRN PRN Reason: Wheezing Albuterol Sulfate (Albuterol Sulfate 90 Mcg 8 Gm Inhaler) 2 puff INHALE Q6H PRN PRN Reason: Wheezing Amitriptyline HCl (Amitriptyline Hcl 25 Mg Tablet) 25 mg PO DAILY [facility] Last Admin: 06/17/24 08:17 Dose: 25 mg Documented By: KEENAN Apixaban (Apixaban 5 Mg Tablet) 5 mg PO BID [facility] Last Admin: 06/17/24 08:17 Dose: 5 mg Documented By: KEENAN Atorvastatin Calcium (Atorvastatin Calcium 80 Mg Tablet) 80 mg PO DAILY [facility] Last Admin: 06/17/24 08:17 Dose: 80 mg Documented By: KEENAN Benzonatate (Benzonatate 100 Mg Capsule) 100 mg PO TID PRN PRN Reason: Cough Ceftriaxone Sodium (Ceftriaxone Sodium 1 Gm Vial) 1 gm IVPUSH Q24H [facility] Last Admin: 06/17/24 13:34 Dose: 1 gm Documented By: KEENAN Metronidazole (Flagyl) 500 mg in 100 mls @ 100 mls/hr IV Q8H [facility] Last Admin: 06/17/24 13:34 Dose: 100 mls/hr Documented By: KEENAN Metoprolol Tartrate (Metoprolol Tartrate 50 Mg Tablet) 50 mg PO BID [facility]; Protocol Last Admin: 06/17/24 08:17 Dose: 50 mg Documented By: KEENAN Multivitamins/Vitamin C (Multivitamin Tablet) 1 tab PO DAILY [facility] Last Admin: 06/17/24 08:17 Dose: 1 tab Documented By: KEENAN Ondansetron HCl (Ondansetron Hcl 4 Mg/2 Ml Vial) 4 mg IVPUSH Q8H PRN PRN Reason: Nausea and Vomiting Sumatriptan Succinate (Sumatriptan Succinate 50 Mg Tablet) 50 mg PO DAILY MRX1 PRN PRN Reason: Migraine Headache Timolol Maleate (Timolol Maleate 0.5 % Oph Juanita 5 Ml Drbtl) 1 drop EYE-RIGHT DAILY [facility] Last Admin: 06/17/24 08:39 Dose: 1 drop Documented By: KEENAN Labs 06/17/24 06:00 06/17/24 06:00 Labs: Laboratory Results - last 24 hr 06/17/24 06:00 MCV 95.2 MCH 32.7 MCHC 34.3 RDW 12.8 Plt Count 197 MPV 11.1 Immature Gran % (Auto) 0.5 H Neut % (Auto) 68.8 Lymph % (Auto) 21.7 Dixon % (Auto) 7.9 Eos % (Auto) 0.9 Baso % (Auto) 0.2 Lymph # (Auto) 1.8 Dixon # (Auto) 0.7 Eos # (Auto) 0.1 Baso # (Auto) 0.0 Abs Immat Gran (auto) 0.04 H Absolute Neuts (auto) 5.8 Absolute Nucleated RBC 0.000 Nucleated RBC % (auto) 0.0 Anion Gap 11 L Estim Creat Clear Calc 70.2 Estimated GFR > 60 Random Glucose 121 H Calcium 8.9 D Assessment and Plan (1) Atrial fibrillation with RVR: Status: Acute (2) Pneumonia: Status: Acute (3) Diverticulitis: Status: Acute Plan A 79 years old male with PMH of asthma, CVA, DM, non-ishemic cardiomyopathy, fibromyalgia, BPH, erectile dysfunction, GERD, migraines, and hemorrhoids presenting with 3 days of nausea, vomiting and abd pain. Acute Diverticulitis Not septic CT as reported pending cultures continue Ceftriaxone and Flagyl Advance diet as tolerated New onset Afib w RvR Increase Metoprolol to 50mg bid pending ECHO Keep on Tele continue Eliquis Continue home dose Metoprolol Cardiology consult Diastolic heart failure Elevated BNP no hypoxia or edema Hold on Lasix now pending Echo Bilateral pneumonia not septic IV Antibiotics Incentive spirometry Mucinex Hx CVA Statin, change ASA to Eliquis GERD PPI DVT PPx Eliquis The paitnet will need overnight hospital stay for treatment of Diverticulitis and Newly diagnosed Afib pending Echo and final culture Quality Stroke Does the patient have a stroke diagnosis?: No VTE Prior VTE?: No VTE Risk Level:: Medical - moderate - high VTE Device Contraindication: Treatment Not Indicated VTE Drug Contraindication: N/A - Med Ordered
[2024-06-18] VITALS (7 sets, daily range): BP systolic 104–138; BP diastolic 75–91; PULSE 56–90; RESP 17–20; TEMP 36.1–36.9; O2SAT 92–98
[2024-06-18] MEDS: metroNIDAZOLE/NS 500 MG/100 ML PIGGYBACK 100 MG IV (05:33)
[2024-06-18] MEDS: Apixaban 5 MG TABLET PO ×2 (08:07→20:16)
[2024-06-18] MEDS: Atorvastatin Calcium 80 MG TABLET PO (08:07)
[2024-06-18] MEDS: ondansetron HCL 4 MG/2 ML VIAL IVPUSH (08:07)
[2024-06-18] MEDS: Multivitamin TABLET 1 TAB PO (08:07)
[2024-06-18] MEDS: Amitriptyline HCl 25 MG TABLET PO (08:07)
[2024-06-18] MEDS: Metoprolol Tartrate 50 MG TABLET PO ×2 (08:07→20:16)
[2024-06-18] MEDS: timoloL maleate 0.5 % Oph Sol 5 ML DRBTL 1 DROP EYE-RIGHT (08:08)
--- NOTE | 2024-06-18 09:09 | PM.PNCARD ---
Subjective Subjective Date of Service: 06/18/24 Principal diagnosis: atrial fibrillation. Interval history: Echocardiogram yesterday shows severe LV systolic dysfunction. Etiology is unclear. Could be tachycardia mediated. Currently patient says that he gets short of breath with exertion since his infection. He also noted palpitations last night. No lightheadedness, syncope. No orthopnea, PND, leg edema. Denies any chest pain. Continues to have GI related issues. Review of Systems Constitutional: Reports no additional constitutional complaints Cardiovascular: Denies chest pain, Denies leg edema, Denies lightheadedness, Denies Loss of Consciousness, Reports palpitations and Reports dyspnea on exertion Respiratory: Reports dyspnea on exertion Gastrointestinal: Reports abdominal pain Reports system reviewed and no additional complaints, except as documented Psychiatric: Reports no additional psychiatric complaints Endocrine: Reports palpitations Physical Exam Vital Signs: Last Vital Signs Temp 97.3 F 06/18/24 07:20 Pulse 90 06/18/24 08:00 Resp 19 06/18/24 07:20 BP 138/85 06/18/24 08:00 Pulse Ox 93 06/18/24 08:00 O2 Del Method Room Air 06/18/24 07:20 BMI result Body Mass Index 24.8 GENERAL APPEARANCE: in no acute distress, pleasant. NECK: no carotid bruit, no jugular venous distention. SKIN: no suspicious lesions, warm and dry. HEART: no murmurs, irregular rate and rhythm. LUNGS: clear to auscultation bilaterally. ABDOMEN: soft, mild tenderness left lower quadrant. EXTREMITIES: no edema. PERIPHERAL PULSES: equal. NEUROLOGIC: No gross deficits, AAO X 3 Objective Labs and Meds 06/17/24 06:00 06/17/24 06:00 Progress Note: A&P Assessment and plan (1) Cardiomyopathy: Status: Acute Assessment and Plan: Cardiomyopathy, new onset without any overt signs of congestive heart failure. He does have exertional shortness well as which is expected both related to LV systolic dysfunction atrial fibrillation. Cause of cardiomyopathy is unclear could be tachycardia mediated from atrial fibrillation. Ischemic etiology is not ruled out. Will need ischemic workup as an outpatient. Will follow up with that. Continue metoprolol for neurohormonal modulation. Add valsartan 20 mg b.i.d. for afterload reduction neurohormonal modulation. Will eventually if tolerated will switch to Entresto therapy as outpatient. Better rate control needs to be pursued. Signs and symptoms of heart failure were discussed. (2) Atrial fibrillation with RVR: Status: Acute Assessment and Plan: Atrial fibrillation with borderline rate control. Continue metoprolol therapy. Will add digoxin loading today 0.25 mg IV push q.6 hours x3 doses and probably at 0.125 mg daily starting tomorrow. Continue full oral anticoagulation Eliquis. Will need to pursue rhythm control as outpatient. If patient needs follow-up locally will help him with the same. Time Spent With Patient Time: Total time managing care of this patient today ____ minutes. Progress Note: Quality Stroke Does the patient have a stroke diagnosis?: No Procedures Date of Service Date of Service: 06/18/24
--- NOTE | 2024-06-18 09:52 | P.PNIM_ITS ---
Subjective Subjective Date of Service: 06/18/24 Interval History: feels better HR better controlled , still goes up to 100 EF of 20% on Echo abdominal pain improving but reporting more diarrhea tolerating PO no other events Review of Systems Review of Systems: Yes all other systems are reviewed and are negative Physical Exam 2 Vital Signs: Vital Signs: Last Vital Signs Temp 97.3 F 06/18/24 07:20 Pulse 90 06/18/24 08:00 Resp 19 06/18/24 07:20 BP 138/85 06/18/24 08:00 Pulse Ox 93 06/18/24 08:00 O2 Del Method Room Air 06/18/24 07:20 BMI result Body Mass Index 24.8 Const: Other: Constitutional : Awake, interactive, not in distress Neck : Normal inspection, Supple Cardiovascular : irregular irregular, no JVP, no lower extremity edema Respiratory : good bilateral air entry, no crackles, wheezes or rhonchi Gastrointestinal: soft, lax, Normal bowel sounds, no tenderness with no surgical signs Skin : Warm, Dry Neurological : Alert & oriented x3, No focal deficit Objective Data Active Medications Acetaminophen (Acetaminophen 325 Mg Tablet) 650 mg PO Q6H PRN PRN Reason: Pain, Mild 1-3,fever,headache Albuterol Sulfate (Albuterol Sulfate (0.083%) 2.5 Mg/3 Ml Vial.Neb) 2.5 mg INHALE QID PRN PRN Reason: Wheezing Albuterol Sulfate (Albuterol Sulfate 90 Mcg 8 Gm Inhaler) 2 puff INHALE Q6H PRN PRN Reason: Wheezing Amitriptyline HCl (Amitriptyline Hcl 25 Mg Tablet) 25 mg PO DAILY [facility] Last Admin: 06/18/24 08:07 Dose: 25 mg Documented By: DARRION Apixaban (Apixaban 5 Mg Tablet) 5 mg PO BID [facility] Last Admin: 06/18/24 08:07 Dose: 5 mg Documented By: DARRION Atorvastatin Calcium (Atorvastatin Calcium 80 Mg Tablet) 80 mg PO DAILY [facility] Last Admin: 06/18/24 08:07 Dose: 80 mg Documented By: DARRION Benzonatate (Benzonatate 100 Mg Capsule) 100 mg PO TID PRN PRN Reason: Cough Ceftriaxone Sodium (Ceftriaxone Sodium 1 Gm Vial) 1 gm IVPUSH Q24H [facility] Last Admin: 06/17/24 13:34 Dose: 1 gm Documented By: KEENAN Digoxin (Digoxin 0.5 Mg/2 Ml Ampul) 0.25 mg IVPUSH Q6H [facility]; Protocol Stop: 06/18/24 15:31 Digoxin (Digoxin 0.125 Mg Tablet) 0.125 mg PO DAILY [facility]; Protocol Loperamide HCl (Loperamide Hcl 2 Mg Capsule) 2 mg PO Q4H PRN PRN Reason: Diarrhea Metoprolol Tartrate (Metoprolol Tartrate 50 Mg Tablet) 50 mg PO BID [facility]; Protocol Last Admin: 06/18/24 08:07 Dose: 50 mg Documented By: DARRION Metronidazole (Metronidazole 500 Mg Tablet) 500 mg PO Q8H [facility] Multivitamins/Vitamin C (Multivitamin Tablet) 1 tab PO DAILY [facility] Last Admin: 06/18/24 08:07 Dose: 1 tab Documented By: DARRION Ondansetron HCl (Ondansetron Hcl 4 Mg/2 Ml Vial) 4 mg IVPUSH Q8H PRN PRN Reason: Nausea and Vomiting Last Admin: 06/18/24 08:07 Dose: 4 mg Documented By: DARRION Sumatriptan Succinate (Sumatriptan Succinate 50 Mg Tablet) 50 mg PO DAILY MRX1 PRN PRN Reason: Migraine Headache Timolol Maleate (Timolol Maleate 0.5 % Oph Juanita 5 Ml Drbtl) 1 drop EYE-RIGHT DAILY [facility] Last Admin: 06/18/24 08:08 Dose: 1 drop Documented By: DARRION Valsartan (Valsartan 40 Mg Tablet) 20 mg PO BID [facility]; Protocol Labs 06/17/24 06:00 06/17/24 06:00 Assessment and Plan (1) Cardiomyopathy: Status: Acute (2) Atrial fibrillation with RVR: Status: Acute (3) Pneumonia: Status: Acute (4) Diverticulitis: Status: Acute Plan A 79 years old male with PMH of asthma, CVA, DM, non-ishemic cardiomyopathy, fibromyalgia, BPH, erectile dysfunction, GERD, migraines, and hemorrhoids presenting with 3 days of nausea, vomiting and abd pain. Acute Diverticulitis Not septic CT as reported negative cultures continue Ceftriaxone and Flagyl Advance diet as tolerated New onset Afib w RvR Increase Metoprolol to 50mg bid pending ECHO Keep on Tele continue Eliquis Continue home dose Metoprolol Cardiology input appreciated, load with Digoxin to give 2 iv doses and start PO Digoxin 0.125 tomorrow morning acute systolic heart failure Elevated BNP Echo showing EF of 20% no hypoxia or edema Start gentle diuresis Add Valsartan 20 mg bid To follow with cardiology as outpatient for ischemic work up among others Bilateral pneumonia not septic IV Antibiotics Incentive spirometry Mucinex Hx CVA Statin, change ASA to Eliquis GERD PPI DVT PPx Eliquis The paitnet will need overnight hospital stay for treatment of Diverticulitis and Newly diagnosed Afib with RvR and Acute systolic CHF Quality Stroke Does the patient have a stroke diagnosis?: No VTE Prior VTE?: No VTE Risk Level:: Medical - moderate - high VTE Device Contraindication: Treatment Not Indicated VTE Drug Contraindication: N/A - Med Ordered
[2024-06-18] MEDS: Valsartan 40 MG TABLET 20 MG PO ×2 (10:56→20:15)
[2024-06-18] MEDS: Digoxin 0.5 MG/2 ML AMPUL 0.25 MG IVPUSH ×2 (10:56→16:40)
[2024-06-18] MEDS: cefTRIAXone sodium 1 GM VIAL IVPUSH (14:50)
[2024-06-18] MEDS: metroNIDAZOLE 500 MG TABLET PO ×2 (14:50→22:18)
[2024-06-19 03:11] VITALS: BP 115/68; PULSE 69; RESP 20; TEMP 36.7; O2SAT 93
[2024-06-19] MEDS: metroNIDAZOLE 500 MG TABLET PO ×2 (06:15→13:27)
[2024-06-19 06:32] LABS: MANUAL DIFF FLAG NO
[2024-06-19 06:40] LABS: Basophils Absolute Auto 0.1 X10*3/uL (0.0-0.2); Basophils Percent Auto 0.6 % (0-2); Eosinophils Absolute Auto 0.3 X10*3/uL (0.0-0.4); Eosinophils Percent Auto 2.8 % (0-4); Hematocrit 42.6 % (42.0-52.0); Hemoglobin 14.7 g/dl (14.0-18.0); Imm Gran Abs Auto 0.03 X10*3/uL (0.00-0.03); Imm Gran Pct Auto 0.3 % (0.0-0.4); Lymphocytes Absolute Auto 2.4 X10*3/uL (1.2-4.9); Lymphocytes Percent Auto 27.3 % (20-40); Mean Corpuscular HGB Conc 34.5 g/dl (31.0-36.0); Mean Corpuscular Hemoglobin 32.6 pg (27.0-33.0); Mean Corpuscular Volume 94.5 fL (80.0-98.0); Mean Platelet Volume 10.9 fL (9.4-12.4); Monocytes Absolute Auto 0.8 X10*3/uL (0.1-1.2); Monocytes Percent Auto 8.8 % (2-11); Neutrophils Absolute Auto 5.3 x10*3/uL (2.0-8.3); Neutrophils Percent Auto 60.2 % (45-73); Platelet Count 188 X10*3/uL (160-400); Red Blood Count 4.51 X10*6/uL (4.60-5.80); Red Cell Distribution Width 12.9 % (11.0-16.0); White Blood Count 8.9 X10*3/uL (4.8-10.8)
[2024-06-19 06:53] LABS: Digoxin 0.7 ng/mL (0.8-2.0)
[2024-06-19 06:58] LABS: Anion Gap 10 (12-20); Blood Urea Nitrogen 8 mg/dL (9-16); Calcium 8.5 mg/dL (8.4-10.2); Carbon Dioxide 25 mmol/L (22-29); Chloride 109 mmol/L (96-108); Creatinine Clr Calc Pharmacy 63.9; Estimated Glomerular Filt Rate > 60; Glucose Random 97 mg/dL (60-115); Potassium 3.9 mmol/L (3.3-5.1); Sodium 140 mmol/L (135-145)
[2024-06-19 06:59] VITALS: BP 129/65; PULSE 56; RESP 16; TEMP 36.9; O2SAT 94
[2024-06-19] MEDS: Atorvastatin Calcium 80 MG TABLET PO (07:57)
[2024-06-19] MEDS: Digoxin 0.125 MG TABLET PO (07:57)
[2024-06-19 07:58] VITALS: BP 129/65; PULSE 56
[2024-06-19] MEDS: Valsartan 40 MG TABLET 20 MG PO (07:58)
[2024-06-19] MEDS: Metoprolol Tartrate 50 MG TABLET PO (07:58)
[2024-06-19] MEDS: Amitriptyline HCl 25 MG TABLET PO (07:58)
[2024-06-19] MEDS: Apixaban 5 MG TABLET PO (07:58)
[2024-06-19] MEDS: Multivitamin TABLET 1 TAB PO (07:58)
[2024-06-19] MEDS: timoloL maleate 0.5 % Oph Sol 5 ML DRBTL 1 DROP EYE-RIGHT (08:00)
[2024-06-19 10:10] LABS: CDiff Gene PCR NEGATIVE (Negative)
--- NOTE | 2024-06-19 11:21 | MHC.CM.PN ---
per rounds, pt to DC to home today, second IMM addressed with him and historical interpreter. [facility] and [facility]. FIELD REPRESENTATIVE/HEALTH EDUCATION to transport pt. home.
[2024-06-19 11:27] LABS: Leukocytes Stool Qualitative NEGATIVE (NEGATIVE)
[2024-06-19 11:31] VITALS: BP 113/71; PULSE 60; RESP 16; TEMP 36.6; O2SAT 96
--- NOTE | 2024-06-19 11:32 | PM.DS ---
DS: Providers Provider Date of Service: 06/19/24 Date of admission: 06/15/24 14:56 Date of discharge: 06/19/24 Primary care physician: Clayton Chavez MD Consults: 06/15/24 14:59 Consult to Cardiology Routine Consulting Provider: [facility] Reason for consultation: new onset atrial fibrillation DS: Diagnosis Discharge Diagnosis (1) Cardiomyopathy: Status: Acute (2) Atrial fibrillation with RVR: Status: Acute (3) Pneumonia: Status: Acute (4) Diverticulitis: Status: Acute DS: Summary Hospital Course Hospital Course: from initial hpi: 79 years old male with PMH of asthma, CVA, DM, non-ishemic cardiomyopathy, fibromyalgia, BPH, erectile dysfunction, GERD, migraines, and hemorrhoids presenting with 3 days of nausea, vomiting and abd pain. The patient reports doing well until 3 days ago when he started to have unspecefic abdominal pain associated with nausea and episode of vomiting and diarrhea. No fever, chills, chest pain, palpitations, SOB or urinary symptoms. In ED found to have evidence of early diverticulitis on CT scan assocaited with Elevated BNP and CXR showing bilateral infiltrates\atelactasis. Noted to have newly onset Afib with RvR responded well to Metoprolol home dose. Start on IV Ceftriaxone and Flagyl. will need admission for further evaluation and treatment. hospital course: Patient was admitted for acute diverticulitis. Was treated ceftriaxone and Flagyl and diet was advanced. Patient is not tolerating solids with minimal pain and will be discharged on 5 more days of cefuroxime and Flagyl. Noted to have new onset atrial fibrillation with rapid ventricular response. Metoprolol was increased to 50 mg b.i.d.. Was started on Eliquis and aspirin discontinued. Also started on digoxin. Rate now controlled and will be discharged home. Echocardiogram with evidence of cardiomyopathy with an EF of 15-20% was started on valsartan 20 mg b.i.d. and will follow up with Cardiology as outpatient for ischemic workup. For bilateral pneumonia patient empirically treated with IV antibiotics, we will continue Ceftin and Flagyl as mentioned. For history of CVA was continued on Eliquis and statin. For GERD continued on PPI. Patient is feeling better will be discharged home. Time Attestation Discharge Coordination Time (in mins): 33 Quality: Safe Use of Opioids Does Pt have an Active Cancer Diagnosis on the Problem List?: No Quality: Stroke Does the patient have a stroke diagnosis?: No Physical Exam Vital Signs: Vital Signs: Last Vital Signs Temp 98.5 F 06/19/24 06:59 Pulse 56 06/19/24 07:58 Resp 16 06/19/24 06:59 BP 129/65 06/19/24 07:58 Pulse Ox 94 06/19/24 06:59 O2 Del Method Room Air 06/19/24 06:59 BMI result Body Mass Index 24.8 Const: Other: Constitutional : Awake, interactive, not in distress Neck : Normal inspection, Supple Cardiovascular : irregular irregular, no JVP, no lower extremity edema Respiratory : good bilateral air entry, no crackles, wheezes or rhonchi Gastrointestinal: soft, lax, Normal bowel sounds, no tenderness with no surgical signs Skin : Warm, Dry Neurological : Alert & oriented x3, No focal deficit DS: Data Data Completed and Pending Labs on day of discharge: Laboratory Results - last 24 hr 06/19/24 06/19/24 05:57 08:37 WBC 8.9 RBC 4.51 L Hgb 14.7 Hct 42.6 MCV 94.5 MCH 32.6 MCHC 34.5 RDW 12.9 Plt Count 188 MPV 10.9 Immature Gran % (Auto) 0.3 Neut % (Auto) 60.2 Lymph % (Auto) 27.3 [place] % (Auto) 8.8 Eos % (Auto) 2.8 Baso % (Auto) 0.6 Lymph # (Auto) 2.4 [place] # (Auto) 0.8 Eos # (Auto) 0.3 Baso # (Auto) 0.1 Abs Immat Gran (auto) 0.03 Absolute Neuts (auto) 5.3 Absolute Nucleated RBC 0.000 Nucleated RBC % (auto) 0.0 Sodium 140 Potassium 3.9 Chloride 109 H Carbon Dioxide 25 Anion Gap 10 L BUN 8 L Creatinine 0.89 Estim Creat Clear Calc 63.9 Estimated GFR > 60 Random Glucose 97 Calcium 8.5 Magnesium 2.0 Stool Leukocytes, Qual NEGATIVE Digoxin 0.7 L C. difficile Tox B Gene NEGATIVE Discharge Plan Discharge Anticipated Discharge Date/Time: 06/19/24 11:29 Patient Disposition: Home, Self-Care Discharge Diagnosis: afib Referrals: Clayton Chavez MD [Primary Care Provider] - 1 Week Discharge Medications: New Eliquis 5 mg Tablet 5 mg PO BID Qty: 180 0RF metoprolol tartrate 50 mg Tablet 50 mg PO BID Qty: 180 0RF Protocol: Hold for SBP/HR < HOLD for SBP < : 90 HOLD for HR < : 60 digoxin 125 mcg (0.125 mg) Tablet 0.125 mg PO DAILY Qty: 90 0RF Protocol: Hold for HR <: HOLD for HR < : 60 valsartan 40 mg Tablet 20 mg PO BID Qty: 180 0RF Protocol: Hold for SBP< HOLD for SBP < : 90 cefuroxime axetil 500 mg tablet 500 mg PO BID Qty: 10 0RF metronidazole 500 mg tablet 500 mg PO BID Qty: 10 0RF Continued albuterol sulfate [Ventolin HFA] 90 mcg/actuation Hfa Aerosol Inhaler 2 puff INHALATION Q6H PRN (Reason: Wheezing) Gaviscon Extra Strength 254-237.5 mg/5 mL suspension 10 ml PO QID PRN (Reason: dyspepsia) Qty: 355 0RF sumatriptan succinate 50 mg tablet 50 mg PO Q2H MDD 100 MG PRN (Reason: Migraine Headache) Rx Instructions: NO MORE THAN 2 TABS IN 24 HRS triamcinolone acetonide 0.1 % cream 1 appl topical BID PRN (Reason: pain and swelling) timolol maleate 0.5 % drops 1 drp ophthalmic-Right DAILY pantoprazole 40 mg tablet,delayed release (DR/EC) 40 mg PO DAILY@0630 albuterol sulfate 2.5 mg /3 mL (0.083 %) solution for nebulization 2.5 mg inhalation QID PRN (Reason: Wheezing) atorvastatin 80 mg tablet 80 mg PO DAILY multivitamin Tablet 1 tab PO DAILY amitriptyline 25 mg tablet 25 mg PO DAILY (DME) lancets [TRUEplus Lancets] 33 gauge misc See Rx Instructions topical .MEDSUPPLY Qty: 100 Rx Instructions: As directed (DME) FreeStyle Lite Strips Strip See Rx Instructions Not Applicable BID Qty: 10 Rx Instructions: As directed Discontinued metoprolol tartrate 25 mg tablet 50 mg PO DAILY aspirin 81 mg tablet,delayed release (DR/EC) 81 mg PO DAILY metoprolol tartrate 25 mg tablet 25 mg PO BEDTIME Discharge Orders: Discharge Order (Routine); Ordered 06/19/24 Ordered By: Miguel Angel Durand Diet: Advance to usual diet Activity on Discharge: As tolerated Stand Alone Forms: Patient Portal Discharge page Print Language: [place] Care Plan Goals: Recovery Health Concerns: New onset AFib, cardiomyopathy, diverticulitis Plan of Treatment: 5 more days of Ceftin and Flagyl, changed aspirin to Eliquis, started on Diovan, metoprolol dose changed, follow up with Cardiology Assessment: See above
--- NOTE | 2024-06-19 11:44 | P.PNCA_ITS ---
Subjective Subjective Date of Service: 06/19/24 Principal diagnosis: atrial fibrillation, cardiomyopathy Interval history: Patient feeling well. Denies any heart failure symptoms. Denies any palpitations today. Heart rate is better controlled. Review of Systems Constitutional: Reports no additional constitutional complaints Cardiovascular: Reports no additional cardiovascular complaints Respiratory: Reports no additional respiratory complaints Reports system reviewed and no additional complaints, except as documented Physical Exam Vital Signs: Last Vital Signs Temp 97.8 F 06/19/24 11:31 Pulse 60 06/19/24 11:31 Resp 16 06/19/24 11:31 BP 113/71 06/19/24 11:31 Pulse Ox 96 06/19/24 11:31 O2 Del Method Room Air 06/19/24 11:31 BMI result Body Mass Index 24.8 GENERAL APPEARANCE: in no acute distress, pleasant. NECK: no carotid bruit, no jugular venous distention. SKIN: no suspicious lesions, warm and dry. HEART: no murmurs, irregular rate and rhythm. LUNGS: clear to auscultation bilaterally. ABDOMEN: soft, mild tenderness left lower quadrant. EXTREMITIES: no edema. PERIPHERAL PULSES: equal. NEUROLOGIC: No gross deficits, AAO X 3 Objective Labs and Meds 06/19/24 05:57 06/19/24 05:57 Lab results: Laboratory Results - last 24 hr 06/19/24 06/19/24 05:57 08:37 WBC 8.9 RBC 4.51 L Hgb 14.7 Hct 42.6 MCV 94.5 MCH 32.6 MCHC 34.5 RDW 12.9 Plt Count 188 MPV 10.9 Immature Gran % (Auto) 0.3 Neut % (Auto) 60.2 Lymph % (Auto) 27.3 [place] % (Auto) 8.8 Eos % (Auto) 2.8 Baso % (Auto) 0.6 Lymph # (Auto) 2.4 [place] # (Auto) 0.8 Eos # (Auto) 0.3 Baso # (Auto) 0.1 Abs Immat Gran (auto) 0.03 Absolute Neuts (auto) 5.3 Absolute Nucleated RBC 0.000 Nucleated RBC % (auto) 0.0 Sodium 140 Potassium 3.9 Chloride 109 H Carbon Dioxide 25 Anion Gap 10 L BUN 8 L Creatinine 0.89 Estim Creat Clear Calc 63.9 Estimated GFR > 60 Random Glucose 97 Calcium 8.5 Magnesium 2.0 Stool Leukocytes, Qual NEGATIVE Digoxin 0.7 L C. difficile Tox B Gene NEGATIVE Progress Note: A&P Assessment and plan (1) Atrial fibrillation with RVR: Status: Acute Assessment and Plan: New onset atrial fibrillation rapid ventricular response with much better rate control on current metoprolol and digoxin therapy. Will need digoxin assay in 1 week. He would like to follow up with his own general ledger accountant Dr. Leal. Continue full oral anticoagulation. I think patient will most benefit from rhythm control approach in the long run given his new onset atrial fibrillation. This will be pursued by his own general ledger accountant. (2) Cardiomyopathy: Status: Acute Assessment and Plan: Cardiomyopathy without any overt heart failure syndrome. This is a new finding. Question tachycardia mediated cardiomyopathy. Will require ischemic workup and I would consider Felicia Mibi in the near future as an outpatient. Continue metoprolol at current dose and valsartan was added to his regimen which she is tolerating currently. May eventually be switch to Entresto therapy as outpatient. Will sign of the case. Patient can be discharged from cardiac perspective. Time Spent With Patient Time: Total time managing care of this patient today ____ minutes. Progress Note: Quality Stroke Does the patient have a stroke diagnosis?: No Procedures Date of Service Date of Service: 06/19/24
[2024-06-19] MEDS: cefTRIAXone sodium 1 GM VIAL IVPUSH (13:28)
== END 2024-06-19 15:53 | disposition home or self-care (01) | DRG 391 ==
LOC: HO.ED 11:04 → HO.EDOVER 15:11 → HO.IMC 06-16 02:40
PROVIDERS: Physician Assistant Medical; Admitting Provider Student in an Organized Health Care Education/Training Program; Emergency Provider Emergency Medicine; PCP Internal Medicine; Visit Provider Internal Medicine
DX: K57.32 Diverticulitis of large intestine without perforation or abscess without bleeding (principal); I50.21 Acute systolic (congestive) heart failure; J18.9 Pneumonia, unspecified organism; I42.8 Other cardiomyopathies; I48.91 Unspecified atrial fibrillation; E11.9 Type 2 diabetes mellitus without complications; K21.9 Gastro-esophageal reflux disease without esophagitis; Z20.822 Contact with and (suspected) exposure to COVID-19; Z86.73 Personal history of transient ischemic attack (TIA), and cerebral infarction without residual deficits; Z87.891 Personal history of nicotine dependence; Z79.899 Other long term (current) drug therapy
CPT/HCPCS: 0241U; 36415; 71045; 74177; 80048; 80053; 80162; 81001; 83690; 83735; 83880; 84484; 85025; 87493; 89055; 93005; 93306; 97162; 99285; J0696; J1160; J1836; J2405; J2470; Q9957; Q9967

== ENCOUNTER → 2024-06-15 11:03 | Outpatient (BNV) | payer OTHER, SELFPAY | PROVIDERS: Emergency Provider Emergency Medicine; PCP Internal Medicine; Visit Provider Radiology Diagnostic Radiology | DX: K57.30 Diverticulosis of large intestine without perforation or abscess without bleeding (principal); J98.11 Atelectasis; R91.8 Other nonspecific abnormal finding of lung field | CPT/HCPCS: 71045; 74177 ==

== ENCOUNTER 2024-06-15 14:56 | Outpatient (BNV) | payer OTHER, SELFPAY | END 2024-06-17 07:00 | PROVIDERS: Admitting Provider Student in an Organized Health Care Education/Training Program; Emergency Provider Emergency Medicine; PCP Internal Medicine; Visit Provider Internal Medicine Cardiovascular Disease | DX: I48.91 Unspecified atrial fibrillation (principal); I42.8 Other cardiomyopathies; I34.0 Nonrheumatic mitral (valve) insufficiency | CPT/HCPCS: 93306 ==

== ENCOUNTER → 2024-06-15 14:56 | Outpatient (BNV) | payer OTHER, SELFPAY | PROVIDERS: Admitting Provider Student in an Organized Health Care Education/Training Program; Emergency Provider Emergency Medicine; PCP Internal Medicine; Visit Provider Internal Medicine Cardiovascular Disease | DX: I48.91 Unspecified atrial fibrillation (principal) | CPT/HCPCS: 99223 ==

== ENCOUNTER → 2024-06-15 14:56 | Outpatient (BNV) | payer OTHER, SELFPAY | PROVIDERS: Admitting Provider Student in an Organized Health Care Education/Training Program; Emergency Provider Emergency Medicine; PCP Internal Medicine; Visit Provider Student in an Organized Health Care Education/Training Program | DX: I48.91 Unspecified atrial fibrillation (principal); J18.9 Pneumonia, unspecified organism; K57.92 Diverticulitis of intestine, part unspecified, without perforation or abscess without bleeding | CPT/HCPCS: 99223; 99232 ==

== ENCOUNTER 2024-06-26 23:41 | Emergency (ER) | payer OTHER, SELFPAY ==
[2024-06-26 23:50] VITALS: BP 154/110; PULSE 91; O2SAT 97
[2024-06-26 23:51] VITALS: BP 139/95; PULSE 103; RESP 13; TEMP 36.7; O2SAT 95; BMI 25.5
[2024-06-26 23:52] VITALS: BP 139/95; PULSE 107; RESP 17; TEMP 36.7; O2SAT 95
--- NOTE | 2024-06-27 | ECG_ITS ---
Test Reason : HTN Blood Pressure : */* mmHG Vent. Rate : 93 BPM Atrial Rate : * BPM P-R Int : * ms QRS Dur : 102 ms QT Int : 382 ms P-R-T Axes : * -2 128 degrees QTcB Int : 474 ms Atrial fibrillation with premature ventricular or aberrantly conducted complexes Nonspecific ST and T wave abnormality Prolonged QT Abnormal ECG When compared with ECG of 15-Jun-2024 10:58, Premature ventricular complexes present Referred By: Generic ED Physician Electronically Signed By: NABOR XIONG
[2024-06-27 00:32] LABS: MANUAL DIFF FLAG NO
[2024-06-27 00:33] LABS: Basophils Percent Auto 0.2 % (0-2); Eosinophils Absolute Auto 0.1 X10*3/uL (0.0-0.4); Eosinophils Percent Auto 0.5 % (0-4); Hematocrit 45.4 % (42.0-52.0); Hemoglobin 15.8 g/dl (14.0-18.0); Imm Gran Abs Auto 0.03 X10*3/uL (0.00-0.03); Imm Gran Pct Auto 0.3 % (0.0-0.4); Mean Corpuscular HGB Conc 34.8 g/dl (31.0-36.0); Mean Corpuscular Hemoglobin 32.2 pg (27.0-33.0); Mean Corpuscular Volume 92.5 fL (80.0-98.0); Mean Platelet Volume 10.4 fL (9.4-12.4); Monocytes Absolute Auto 0.7 X10*3/uL (0.1-1.2); Monocytes Percent Auto 6.5 % (2-11); Neutrophils Absolute Auto 7.8 x10*3/uL (2.0-8.3); Neutrophils Percent Auto 73.5 % (45-73); Platelet Count 257 X10*3/uL (160-400); Red Blood Count 4.91 X10*6/uL (4.60-5.80); Red Cell Distribution Width 12.6 % (11.0-16.0); White Blood Count 10.6 X10*3/uL (4.8-10.8)
[2024-06-27 00:54] LABS: Alanine Aminotransferase 29 U/L (0-40); Alkaline Phosphatase 77 U/L (39-117); Anion Gap 13 (12-20); Aspartate Amino Transferase 39 U/L (5-37); Bilirubin Total 0.5 mg/dL (0.0-1.0); Blood Urea Nitrogen 11 mg/dL (9-16); Calcium 9.5 mg/dL (8.4-10.2); Carbon Dioxide 24 mmol/L (22-29); Chloride 109 mmol/L (96-108); Estimated Glomerular Filt Rate > 60; Glucose Random 144 mg/dL (60-115); Potassium 4.5 mmol/L (3.3-5.1); Sodium 141 mmol/L (135-145); Total Protein 7.2 g/dL (6.5-8.0)
--- NOTE | 2024-06-27 01:36 | ED.GENADULT ---
HPI - General Adult General Chief complaint: General Medical Stated complaint: HYPERTENSION/NAUSEA/DIARRHEA Time Seen by Provider: 06/27/24 00:49 Source: patient Mode of arrival: ambulatory Limitations: no limitations History of Present Illness ED Provider: HPI narrative: Patient's history of hypertension atrial fibrillation the discharged on 06/13/2024 on valsartan 40 mg tablets half tablet twice a day. In the evening he missed the dose was worried about it checked his blood pressure was 171/122 got more worried and came to the ER no headache no chest pain no palpitation on arrival patient's blood pressure 139/95 Related Data Home Medications ?Medication ?Instructions ?Recorded ?Confirmed amitriptyline 25 mg tablet 25 mg PO DAILY 01/28/20 06/15/24 albuterol sulfate 2.5 mg/3 mL 2.5 mg inhalation QID PRN Wheezing 06/11/20 06/15/24 (0.083 %) solution for nebulization atorvastatin 80 mg tablet 80 mg PO DAILY 06/11/20 06/15/24 multivitamin 1 tab PO DAILY 06/11/20 06/15/24 albuterol sulfate 90 mcg/actuation 2 puff inhalation Q6H PRN Wheezing 11/13/20 06/15/24 aerosol inhaler (Ventolin HFA) blood sugar diagnostic (FreeStyle #10 ea 06/15/21 12/20/22 Lite Strips) lancets 33 gauge (TRUEplus Lancets) #100 ea 06/15/21 12/20/22 pantoprazole 40 mg tablet,delayed 40 mg PO DAILY@0630 06/15/24 06/15/24 release sumatriptan succinate 50 mg tablet 50 mg PO Q2H PRN Migraine Headache 06/15/24 06/15/24 timolol maleate 0.5 % eye drops 1 drp ophthalmic-Right DAILY 06/15/24 06/15/24 triamcinolone acetonide 0.1 % 1 appl topical BID PRN pain and 06/15/24 06/15/24 topical cream swelling Previous Rx's ?Medication ?Instructions ?Recorded aluminum hydrox-magnesium carb 254 10 ml PO QID PRN dyspepsia #355 mL 11/14/23 mg-237.5 mg/5 mL oral suspension (Gaviscon Extra Strength) apixaban 5 mg tablet (Eliquis) 5 mg PO BID #180 tabs 06/19/24 cefuroxime axetil 500 mg tablet 500 mg PO BID #10 tabs 06/19/24 digoxin 125 mcg (0.125 mg) tablet 0.125 mg PO DAILY #90 tabs 06/19/24 metoprolol tartrate 50 mg tablet 50 mg PO BID #180 tabs 06/19/24 metronidazole 500 mg tablet 500 mg PO BID #10 tabs 06/19/24 valsartan 40 mg tablet 20 mg PO BID #180 tabs 06/19/24 Allergies Allergy/AdvReac Type Severity Reaction Status Date / Time lisinopril [LISINOPRIL] Allergy Intermediate COUGH Verified 06/26/24 23:57 oxycodone [From PERCOCET] Allergy Intermediate VOMITING Verified 06/26/24 23:57 alprazolam [From XANAX] AdvReac Intermediate VOMITING Verified 06/26/24 23:57 gabapentin AdvReac Abdominal Verified 06/26/24 23:57 Pain PMFSH Past Medical History Medical History Weak urinary stream Erectile dysfunction Bleeding hemorrhoids Diabetes mellitus Arteriosclerosis Cancer Pulmonary nodule Non-ischemic cardiomyopathy CVA (cerebral vascular accident) Arthritis Asthma GERD (gastroesophageal reflux disease) Elevated cholesterol Diastolic dysfunction Surgical History Hx of transurethral resection of prostate History of esophagogastroduodenoscopy (EGD) H/O colonoscopy Hx of cataract extraction History of ankle surgery History of surgical removal of skin lesion History of hemorrhoidectomy History of appendectomy Family History Family History Father Prostate cancer Mother Parkinson disease Social History Social History Household Members: Children and Other Household Members Other:: two grandchild Housing: Apartment Do you presently have visiting nurse or other home services: Yes Alcohol intake: former Patient Tobacco Use Status: Former Tobacco user Smoked in Last 30 Days: No Second Hand Smoke Exposure: No Use of substances other than those prescribed or required for medical reasons: No Advance Directives: No Advance Directives Information Provided: Yes service: No Physical Exam ED Vital Signs: Vital Signs - 24 hr 06/26/24 23:51 06/26/24 23:52 06/27/24 02:26 Temperature 98.1 F 98.1 F 97.9 F Pulse Rate 103 H 107 H 86 Respiratory Rate 13 17 16 Blood Pressure 139/95 H 139/95 H 151/85 H Pulse Oximetry 95 95 98 Oxygen Delivery Method Room Air Room Air Room Air BMI result Body Mass Index 25.5 Appearance: Alert. Oriented X3. No acute distress. Eyes: PERRLA, No Nystagmus ENT: Pharynx normal. Oral Mucosa moist Neck: Normal inspection. Neck supple. CVS: Irregularly irregular heart rate no murmur rub or gallop. Pulses normal. Respiratory: No respiratory distress. Equal air entry bilateral, no wheezing/rales/rhonchi Abdomen: Soft and nontender. Bowel sounds are present, no mass palpable, no CVA tenderness Skin: Skin warm and dry. Normal skin color. Normal skin turgor. Extremities: No lower extremity edema. No calf tenderness Neuro: Oriented X 3. No motor deficit. No sensory deficit.No cerebellar signs , cranial nerves II-XII intact Medical Decision Making Medical Decision Making MDM Narrative: Patient with hypertension AFib missed his evening dose was given his 20 mg of valsartan in the ER blood pressure stable advised to continue his medication and follow with PCP Lab Data [facility] Lab Attestation statement: I reviewed the patient's lab results. 06/27/24 00:28 06/27/24 00:28 Labs: Lab Results 06/27/24 Range/Units 00:28 WBC 10.6 (4.8-10.8) X10*3/uL RBC 4.91 (4.60-5.80) X10*6/uL Hgb 15.8 (14.0-18.0) g/dl Hct 45.4 (42.0-52.0) % MCV 92.5 (80.0-98.0) fL MCH 32.2 (27.0-33.0) pg MCHC 34.8 (31.0-36.0) g/dl RDW 12.6 (11.0-16.0) % Plt Count 257 D (160-400) X10*3/uL MPV 10.4 (9.4-12.4) fL Immature Gran % (Auto) 0.3 (0.0-0.4) % Neut % (Auto) 73.5 H (45-73) % Lymph % (Auto) 19.0 L (20-40) % [place] % (Auto) 6.5 (2-11) % Eos % (Auto) 0.5 (0-4) % Baso % (Auto) 0.2 (0-2) % Lymph # (Auto) 2.0 (1.2-4.9) X10*3/uL [place] # (Auto) 0.7 (0.1-1.2) X10*3/uL Eos # (Auto) 0.1 (0.0-0.4) X10*3/uL Baso # (Auto) 0.0 (0.0-0.2) X10*3/uL Abs Immat Gran (auto) 0.03 (0.00-0.03) X10*3/uL Absolute Neuts (auto) 7.8 (2.0-8.3) x10*3/uL Absolute Nucleated RBC 0.000 (0.0-0.012) X10*3/uL Nucleated RBC % (auto) 0.0 (0.0-0.2) /100WBC Sodium 141 (135-145) mmol/L Potassium 4.5 (3.3-5.1) mmol/L Chloride 109 H (96-108) mmol/L Carbon Dioxide 24 (22-29) mmol/L Anion Gap 13 (12-20) BUN 11 (9-16) mg/dL Creatinine 0.79 (0.5-1.4) mg/dL Estim Creat Clear Calc 72.0 Estimated GFR > 60 Random Glucose 144 H (60-115) mg/dL Calcium 9.5 D (8.4-10.2) mg/dL Total Bilirubin 0.5 (0.0-1.0) mg/dL AST 39 H (5-37) U/L ALT 29 (0-40) U/L Alkaline Phosphatase 77 (39-117) U/L Total Protein 7.2 (6.5-8.0) g/dL Albumin 4.0 (3.5-5.0) g/dL Independent Interpretation I performed an independent interpretation of an: EKG Interpretation: Atrial fibrillation with ventricular rate 93 beats per minute nonspecific STT wave changes no acute ischemia Discharge Plan Discharge Clinical Impression: Hypertension Patient Disposition: Home, Self-Care Instructions: Chronic Hypertension (DC) Additional Instructions: Take medication on time as prescribed Follow up with your PCP Prescriptions: No Action albuterol sulfate [Ventolin HFA] 90 mcg/actuation Hfa Aerosol Inhaler 2 puff INHALATION Q6H PRN (Reason: Wheezing) Gaviscon Extra Strength 254-237.5 mg/5 mL suspension 10 ml PO QID PRN (Reason: dyspepsia) Qty: 355 0RF sumatriptan succinate 50 mg tablet 50 mg PO Q2H MDD 100 MG PRN (Reason: Migraine Headache) Rx Instructions: NO MORE THAN 2 TABS IN 24 HRS triamcinolone acetonide 0.1 % cream 1 appl topical BID PRN (Reason: pain and swelling) timolol maleate 0.5 % drops 1 drp ophthalmic-Right DAILY pantoprazole 40 mg tablet,delayed release (DR/EC) 40 mg PO DAILY@0630 Eliquis 5 mg Tablet 5 mg PO BID Qty: 180 0RF metoprolol tartrate 50 mg Tablet 50 mg PO BID Qty: 180 0RF Protocol: Hold for SBP/HR < HOLD for SBP < : 90 HOLD for HR < : 60 digoxin 125 mcg (0.125 mg) Tablet 0.125 mg PO DAILY Qty: 90 0RF Protocol: Hold for HR <: HOLD for HR < : 60 valsartan 40 mg Tablet 20 mg PO BID Qty: 180 0RF Protocol: Hold for SBP< HOLD for SBP < : 90 cefuroxime axetil 500 mg tablet 500 mg PO BID Qty: 10 0RF metronidazole 500 mg tablet 500 mg PO BID Qty: 10 0RF albuterol sulfate 2.5 mg /3 mL (0.083 %) solution for nebulization 2.5 mg inhalation QID PRN (Reason: Wheezing) atorvastatin 80 mg tablet 80 mg PO DAILY multivitamin Tablet 1 tab PO DAILY amitriptyline 25 mg tablet 25 mg PO DAILY (DME) lancets [TRUEplus Lancets] 33 gauge misc See Rx Instructions topical .MEDSUPPLY Qty: 100 Rx Instructions: As directed (DME) FreeStyle Lite Strips Strip See Rx Instructions Not Applicable BID Qty: 10 Rx Instructions: As directed Interventions: ED Discharge Assessment Last Done: 06/27/24 02:26 Discharge Date/Time: 06/27/24 02:27 Print Language: Estonian
--- OUTSIDE RECORDS SUMMARY | 2024-06-27 01:59 | XMS_ITS ---
Author Organization [facility] Address [address] [place] [address] Care Team Providers Care Internetworking Technician Name Role Phone Dawson Millard MD, Clayton Primary Care Provide iker Monroy Jr, Glenn Unavailable REASON FOR VISIT Abdominal pain Medications Medication SIG (Take, Route, Frequency, Duration) Notes Start Date End Date Status Pantoprazole Sodium 40 MG 1 tablet Orall y Once a day for 30 days 11/24/2023 Active Encounters Encounter Location Date Provider Diagnosis [facility] [address] [place] [id number] 11/28/2023 Glenn Monroy Jr Plan Of Treatment Medication Medication Name Sig Start Date Stop Date Notes Pantoprazole Sodium 40 MG 1 tablet Orall y Once a day for 30 days 11/24/2023 Next Appt Details Provider Name:Glenn goss Jr, 07/08/2024 01:35:00 PM, [address] [place] [address], [address], [place], [phone], Progress Notes * ROBB PADRONDOB:1945 ( 78 yo M)Acc No.[id number]:11/28/2023 Patient:?PADRONJEFERSONROBB :1945???Age:78 Y???Sex:Male Address:[address], [place] [address] * Refills? Refill Pantoprazole Sodium Tablet Delayed Release, 40 MG, Orally, 30, 1 tablet, Once a day, 30 days, Refills=6 * true * Date:? Generated for Santosh dillard/Codie/Manishaitting on:?06/27/2024 01:58 AM EDT
--- OUTSIDE RECORDS SUMMARY | 2024-06-27 01:59 | XMS_ITS | Data Portability ---
Author Organization [employer] Address [address] [place] [phone] Care Team Providers Care Information Receptionist Name Role Phone HIM CCA OTHER Assessment [...] been taking tylenol and occasional oxycodone. VSS. Political Director on site reports bruising over the shoulder, [...] Referral None Reported. Medical Equipment None Reported. Allergies Allergen ID Allergen Name Allergen Category Reaction Reaction Severity Criticality Documentation Date Start Date Code Code System Note Provider Name and Address Organization Details Recorded Time 60585 lisinopri l medicatio n Not available Not available Not available 06/12/2024 97568 RxNorm Not Available [facility] - production 13:30:19 88615 gabapenti n medicatio n Not available Not available Not available 06/12/2024 74486 RxNorm Not Available [facility] - production 5 13:30:19 60877 Xanax medicatio n Not available Not available Not available 06/12/202409463 3 RxNorm Harriett Cortez MD [address] [place] [address],[address], [place], [phone], [employer] 5 14:56:19 58779 oxycodone medicatio n Not available Not available Not available 06/12/2024 7804 RxNorm Harriett Cortez MD [address] [place] [address],[address], [place], [phone], [employer] 5 14:56:24 56484 acetamino phen / oxycodone medicatio n Not available Not available Not available 06/12/2024 64565 3 RxNorm Not Available [employer] - production 15:37:05 Medications Name Sig Start Date Stop Date [...] and Address Organization Details Last Updated DateTime 4 99 % 99 % 16 /min 98.1 [degF] 67 /min 132 mm[Hg] 80 mm[Hg] Not Available [employer] 4 12:49:57 Date Recorded Respiratory rate Oxygen saturation Oxygen saturation in Arterial blood by Pulse oximetry Heart rate Body temperature Systolic blood pressure Diastolic blood pressure Provider Name and Address Organization Details Last Updated DateTime 5 18 /min 96 % 96 % 63 /min 98.6 [degF] 145 mm[Hg] 96 mm[Hg] Not Available [employer] 5 14:47:09 Social History None recorded. Functional Status None recorded. Mental Status None recorded. Family History Nothing Reported. Medical History No medical history recorded. Past Encounters Encounter ID Performer Location Encounter Start Date Encounter Closed Date Diagnosis/Indication Diagnosis SNOMED-CT Code Diagnosis ICD10 Code Diagnosis Note [id number] Destiny Patel MD [facility] - [facility] [address] [place] [phone] 09/01/2023 12:46:34 11/21/2023 14:15:14 Muscle pain 30212329 M79.10 [id number] [facility] [address] [place] [phone] 06/12/2024 14:44:38 06/12/2024 22:02:59 Hypertensive disorder 86813199 I10 Evaluation in the field was performed by my document clerk colleague, as noted above, I provided real-time direction and supervisio n for this visit.This is a 79yo M with PMHx HTN seen at [facility] ED 05/25 for headache, dizziness, and nausea with negative work up. Reports symptoms ongoing. VS: wnlParamed ic exam: during assessment pt reported he wanted to be seen in ED and declined further assessment POC testing: none Impression : pt requesting EMS be activated for ED assessment Plan: EMS activatedR ed flags reviewed, pt expressed understand ing For PCP: please f/up after ED We discussed the diagnostic uncertaint y of home visits and the risk associated with this. In this case, the patient and I felt this to be an acceptable and reasonable amount of risk given the benefit of avoiding an ED visit. We discussed the need to seek care urgently/e mergently in the setting of any new or worsening serious symptoms, shortness of breath, cough, chest pain, fever. Health Concerns Section Related Observation LastModified by Organization Detai ls LastModified Time None Recorded Concern Status LastModified by Organization Details LastModified Time None Recorded Advance Directives Directive None Recorded Payers Encounter Date Sequence Insurance Name Policy Number Policy Leblanc Covered Member ID Leblanc Member ID Guarantor Name 09/01/2023 1 [facility] - DOS ON OR AFTER 2022 - DUAL ELIGIBLE - LONG TERM OPTIONS AND ONE CARE (MEDICARE REPLACEMENT/ADV ANTAGE - HMO) Shelton Davis [id number] Shelton Davis 06/12/2024 1 [facility] - DOS ON OR AFTER 2022 - DUAL ELIGIBLE - LONG TERM OPTIONS AND ONE CARE (MEDICARE REPLACEMENT/ADV ANTAGE - HMO) Shelton Davis [id number] Shelton Davis Notes Date Note Type Note Provider Name and Address Organization Details Recorded Time 09/01/2023 text/html HPI: ROSSY is a very pleasant 78 Japanese speaking y/o male with a PMH of, [...] but no open wounds. ROSSY presented to [facility] on the day of the fall for [...] He is walking without difficulty, but ? m ust go slowly due to the pain.? MARCYR is requesting an [facility] in-home visit today [...] do so. MBR can be reached at [phone]. .................. .................. .................. .................. .................. .................. .................. ............... CRC Nurse Triage Notes (Rosy Corona): Comments: CRC RN did not require any additional information to process this visit. .................. .................. .................. .................. .................. .................. .................. ............... Political Director Note From Hitesh Araiza: Dispatched to the [...] .................. .................. .................. .................. .................. ............... Disposition: Fallon Destiny Patel MD [address] [facility], [place], [phone], [employer] 11/20/2023 19:41:13 06/12/2024 text/html CRC Nurse Triage Notes (Laine Horowitz): Reason For Request: Patient has blood pressure problems, headache, weak. Denies: History of Heart Attack, in the setting of active chest pain Active Chest pain, radiates to neck jaw and or arm Diaphoretic/Sweati ng Describes as ? c rushing? Sudden onset of nausea/Vomiting and shortness of breath. Shortness of Breath Unable to speak in full sentences without distress Chief Complaints: High Blood Pressure, Nausea / Vomiting, Weakness, Headache PMH: Hypertension, Stroke PMH Reviewed at 06/12/2024:30 Allergies Reviewed at 06/12/2024:30 Comments: Patient reporting high blood pressur. c/o headache, weakness, shortness of breath and N/V since 05/25. Only reporting nausea at this time. Went to ER at [facility] on 05/25. Currently taking Metoprolol daily. Cloud [employer] instructed patient to increase dose to 2 tablets daily. Denies chest pain. Education provided on the response time and the member was advised to monitor reported s/s and seek emergency treatment if needed. .................. .................. .................. .................. .................. .................. .................. ............... Political Director Note From Nadine Bennett: Sent to a call for a pt complaining of hypertension. SC8 arrives on scene, pt is alert and oriented, airway is patent. Pt complains of hypertension along with the following intermittent symptoms since 05/25: headache, feeling off balance, sob, and nausea. Pt denies cp, vomiting, diarrhea, abd pain, fever, or loc. Pt states he was evaluated at [facility] ED on 05/25 and by [employer] on 06/07. Pt states his Metoprolol dosage was increased from 25mg to 50mg PO. (sitting) BP:145/96, P:63, RR:18, SpO2:96% RA, T:98.6; (standing) BP:147/101, P:63; Head: unremarkable; Lung sounds: clear bilaterally; Abdomen: soft, non-tender, no distention; Back: unremarkable; Extremities: unremarkable; Skin: pink, warm, dry; Pt requests transport to [facility] ED for re-evaluation. [facility] contacted and advised of pt's wishes. 911 called; Pt care transferred to [facility]. .................. .................. .................. .................. .................. .................. .................. ............... [facility] Consulted: Harriett Cortez .................. .................. .................. .................. .................. .................. .................. ............... Disposition: Fulfilled Harriett Cortez MD [address] [facility], [place], [phone], [facility]TER - [employer]ANGEL 06/12/2024 15:48:07
--- OUTSIDE RECORDS SUMMARY | 2024-06-27 01:59 | XMS_ITS | Encounter Summary ---
Author Organization [employer] [facility] Address [address] [place] [address] [address] [place] [address] Care Team Providers Care Refrigeration Technician Name Role Phone Clayton Lyon MD Primary Care Provide r Encounter Details Date Type Department Care Team (Late Contact Info) Description 03/07/2022 [facility] Health Information Management [address] [place] [address] [phone] Clayton Lyon MD [address] [place] [address] [phone] Social History Tobacco Use Types Packs/Day Years Used Date Smoking Tobacco: Never Assessed Sex and Gender Information Value Date Recorded Sex Assigned at Male 01/24/2022 10:18 AM EDT Legal Sex Male 10:18 AM EDT Gender Identity Male 01/24/2022 10:18 AM EDT Sexual Orientation Straight 01/24/2022 10 :18 AM EDT documented as of this encounter Plan of Treatment Upcoming Encounters Date Type Department Care Team (Late Contact Info) Description 07/01/2024 10:00 AM EDT Office Visit [facility] [address] [place] [phone] Audrey Noe ANP [address] [place], [place] [phone] 08/13/2024 9:15 AM EDT Office Visit [facility] [address] [place] [phone] Clayton Lyon MD [address] [place] [phone] documented as of this encounter Procedures Procedure Name Priority Date/Time Associated Diagnosis Comments PSA, TOTAL Routine 12/05/2022 11:19 AM EDT STREP A NUCLEIC ACID Routine 05/30/2022 11:58 AM EST SARS COV2/INFLUENZA A/B AND RSV RNA QL NAAT Routine 05/30/2022 11:58 AM EST documented in this encounter Results * PSA,Total (12/05/2022 11:19 AM EDT) Prostate Specific Antigen 0.50 <0.05 - 4.0 ng/mL [facility] Comment:PSA methodology: Lolly Hammond i ChemiluminescentMicroparticle Immunoassay (CMIA) 12/05/2022 11:1 9 AM EDT 12/05/2022 11:19 AM EDT [facility] External Provider LAB BLO OD ORDERABLES Final Result [facility] [address] [place] [address] [phone] * SARS-CoV-2 RNA, Influenza A/B, and RSV RNA, Ql NAAT (05/30/2022 11:58 AM EST) Influenza A PCR NEGATIVE Negative [facility] Influenza B PCR NEGATIVE Negative [facility] Resp Syncy Virus RNA Qual PCR NEGATIVE Negative [facility] SARS COV2 PCR NEGATIVE Negative [facility] SARS/Flu/RSV Note See Note [facility] Comment:All test results mus t be correlated with clinical findings.Negative results do not preclude SARS-CoV2, influenza Avirus, influenza B virus and/or RSV infectionand should not be used as the sole basis for treatment orother patient management decisions. Negative results must becombined with clinical observations, patient history, andepidemiological information.This test has not been evaluated for monitoring treatment ofinfection.This test has been authorized by the FDA under an EmergencyUse Authorization (EUA) for use by authorized laboratories.Testing performed on the Categorical GeneXpert utilizingreal-time RT-PCR.All SARS CoV2 and positive influenza A/B results arereported to [facility]. 05/30/2022 11:5 8 AM EST 05/30/2022 12:03 PM EST [facility] Exter nal Provider LAB MICROBIOLOGY - GENERAL ORDERABLES Final Result Performing Organization Address [facility] [place] [place] Co de Phone Number [facility] [address] [place] [address] [phone] * Strep A Nucleic Acid (05/30/2022 11:58 AM EST) [employer]NOW SERIAL# [id number] [facility] Strep A Nucleic Acid Negative Negative [facility] Comment:All test results mus t be correlated with clinical findings.This test has not been evaluated for monitoring treatment ofinfection.Additional follow-up testing using the culture method isrequired if the result is negative and clinical symptomspersist, or in the event of an acute rheumatic feveroutbreak. 05/30/2022 11:5 8 AM EST 05/30/2022 12:03 PM EST [facility] Exter nal Provider LAB MICROBIOLOGY - GENERAL ORDERABLES Final Result Performing Organization Address [facility] de Phone Number [facility] [address] [place] [phone] documented in this encounter Visit Diagnoses Not on filedocumented in this encounter Care Teams Refrigeration Technician Relationship Specialty Start Date End Date Clayton Lyon MD [address] [place] [phone] PCP - General Internal Medicine 11/12/13 [facility] 08/18/21 documented as of this encounter
--- OUTSIDE RECORDS SUMMARY | 2024-06-27 01:59 | XMS_ITS | Encounter Summary ---
Author Organization [employer] Address [address] [facility] [address] [place] [address] Care Team Providers Care Chief Of Field Operations Name Role Phone Clayton Lyon MD Primary Care Provide r Reason for Visit * Reason Onset Date Comments ER Follow-up 08/31/2023 Encounter Details Date Type Department Care Team ([facility] st Contact Info) Description 08/31/2023 Telephone [facility] [address] [place], [place] [phone] Clayton Lyon MD [address] [place], [place] [phone] ER Follow-up Social History Tobacco Use Types Packs/Day Years Used Date Smoking Tobacco: Former Cigarettes Passive Smoke Exposure: Past Smokeless Tobacco: Former Alcohol Use Standard Drinks/Week Comments Never 0 (1 standard drink = 0.6 oz pur e alcohol) Housing Stability Answer Date Recorded What is your housing situation today? I have housing today, but I am worried about losing housing in the future 02/04/[address] you li ve. Do you have problems with any of the following? None of the above 02/04/2023 Food Insecurity Answer Date Recorded Within the past 12 months, y ou worried that your food would run out before you got money to buy more: Never True 02/04/2023 Within the past 12 months,th e food you bought just didn't last and you didn't have enough money to get more: Never True 01/2023 Transportation Answer Date Recorded In the past 12 months, has l ack of transportation kept you from medical appts, meetings, work or from getting things needed for daily living? No 02/04/2023 Utilities Answer Date Recorded In the past 12 months, has t he electric, gas, oil or water company threatened to shut off services in your home? No 02/04/2023 Depression Answer Date Recorded Patient Health Questionnaire-2 Score 0 03/29/2022 Sex and Gender Information Value Date Recorded Sex Assigned at Male 01/24/2022 10:18 AM EDT Legal Sex Male 10:18 AM EDT Gender Identity Male 01/24/2022 10:18 AM EDT Sexual Orientation Straight 01/24/2022 10 :18 AM EDT documented as of this encounter Miscellaneous Notes * Telephone Encounter - Alanna Vieyra - 08/31/2023 10:58 AM EDT Patient calling to report ED visit on : Date: 09/18/23 Hospital: [facility] Seen for: fall Patient advised will forward to team nurse for follow up documented in this encounter Plan of Treatment Upcoming Encounters Date Type Department Care Team (Late st Contact Info) Description 07/01/2024 10:00 AM EDT Office Visit [facility] [address] [place] [phone] Audrey Noe, ANP [address] [place] [address] 08/13/2024 9:15 AM EDT Office Visit [facility] [address] [place] [phone] Clayton Lyon MD [address] [place] [address] documented as of this encounter Visit Diagnoses Not on filedocumented in this encounter Care Teams Chief Of Field Operations Relationship Specialty Start Date End Date Clayton Lyon MD [address] [place] [phone] PCP - General Internal Medicine 11/12/13 [facility] 08/18/21 documented as of this encounter
--- OUTSIDE RECORDS SUMMARY | 2024-06-27 01:59 | XMS_ITS ---
Author Organization [facility] Address [address] [place] [address] Care Team Providers Care Guidance Consultant Name Role Phone Dawson Millard MD, Clayton Primary Care Provide iker Monroy Jr, Glenn Unavailable REASON FOR VISIT Needs different RX sent Medications Medication SIG (Take, Route, Frequency, Duration) Notes Start Date End Date Status Pantoprazole Sodium 40 MG 1 tablet Orall y Once a day for 30 day(s) 11/24/2023 Active Encounters Encounter Location Date Provider Diagnosis [facility] [address] [place] [address] 11/24/2023 Glenn Monroy Jr Gastroesophageal reflux disease without esophagitis K21.9 Assessments Encounter Date Diagnosis (ICD Code) Assessment Notes Treatment Notes Treatment Clinical Notes Section Notes 11/24/2023 Gastroesophageal reflux disease without esophagitis (ICD-10 - K21.9) Plan Of Treatment Medication Medication Name Sig Start Date Stop Date Notes Pantoprazole Sodium 40 MG 1 tablet Orall y Once a day for 30 day(s) 11/24/2023 Lansoprazole 30 MG 1 Orally Twice a day 08/14/2023 Next Appt Details Provider Name:Glenn goss Jr, 07/08/2024 01:35:00 PM, [address] [facility], [address], [place], [address], Progress Notes * ROBB PADRONDOB:1945 ( 78 yo M)Acc No.[id number]:11/24/2023 Patient:?ROBB PADRON :1945???Age:78 Y???Sex:Male Address:[address] [place] [address], [place] [address] * Refills? Stop Lansoprazole Capsule Delayed Release, 30 MG, Orally, 1, Twice a day Start Pantoprazole Sodium Tablet Delayed Release, 40 MG, Orally, 30 Tablet, 1 tablet, Once a day, 30 day(s), Refills=6 * true * Date:? Generated for Santosh dillard/Codie/Manishaitting on:?06/27/2024 01:59 AM EDT
--- OUTSIDE RECORDS SUMMARY | 2024-06-27 01:59 | XMS_ITS | Patient Health Record ---
Author Organization [facility] Address [address] [place] [address] Care Team Providers Care Staff Development Coordinator Name Role Phone Dawson Millard MD, Clayton Primary Care Provide Glenn Mary Jr Unavailable Allergies Allergen (clinical drug ingredient) Drug/Non Drug Allergy documented on EMR Reaction Allergy Type Onset Date Status oxycodone Oxycodone Unknown Drug Allergy Active lisinopril Lisinopril Unknown Drug Allergy Activ e gabapentin Gabapentin Unknown Drug Allergy Activ e acetaminophen / oxycodone Percocet Unknown Drug Allergy Active zanac (uncoded) Unknown Allergy Acti ve Results Component Value Reference Range Notes Glucose, Whole Blood Reviewed date:09/22/2023 03:04:56 PM Interpretation: Performing Lab:[facility], [address] [place] [phone] Notes/Report: Glucose, Whole Blood 106 60-115 mg/dL METER # : [id number] Pathology Reviewed date:10/05/2023 11:07:51 AM Interpretation: Performing Lab:[facility], [address] [place] [phone] Notes/Report: ------ Name: Robb Padron e/Sex: 78/M : 1945 Unit#: [id number] Attend Dr: Glenn Monroy MD Re09/22/23 Status : [facility] Location: [facility] Disch: ------ SPEC : [id number] RECD : 09/22/23 STATUS: VINOD BUSH NUM: [id number] GLORIA: 09/22/[address] [facility] [address]: Glenn Monroy MD ENTERED: 09/22/23 SP TYPE: Surgical OTHR DR: Clayton Chavez MD ORDERED: HE Stain/6, Gross Micro L4/3, IHC, Special st. 2/3, H. pylori, AB/PAS/3 Diagnosis A. Duodenum, biopsy: Duodenal mucosa with preserved villi and no specific change. B. Gastric antrum, b iopsy: Gastric antral mucosa with minimal chronic active gastritis; negative for H.pylor i, intestinal metaplasia and dysplasia. C. Esophagogastric junction, biopsy: Squamocolumnar mucosa with mild chronic inflammation; negati ve for intestinal metaplasia and dysplasia. Clinical History Pre-Op Dx: Peptic ulcer Post-Op Dx: GERD Microscopic Description Microscopic sections reviewed. Immunostain for H. pylori on B is negative. AB/PAS on A is negative for evidenc e of chronic injury. AB/PAS on B and C are negative for intestinal metaplasia. Controls stain appropriately. Material Received A. Duodenal bx's B. Antral bx's C. EG junction Gross Description Received in three parts. Part A: Received in formalin labeled ?duodenal bx's? are 2 alfaro-pink irregular tissue fragments measuring less than 0.1 and 0.3 cm, submitted in toto in a cassette labeled A. Part B: Received in formalin labeled ?antral bx's? are 2 alfaro-pink irregular tissue fragments each measu ring 0.25 cm, submitted in toto in a cassette labeled B. Part C: Received in formalin labeled ?EG junction? are 4 white-pink rectangular tissue fragments ranging fr om 0.3-0.45 cm, submitted in toto in a cassette labeled CAnastacia CEDS Special studies orde red and performed: Immunostain for H. pylori on B1; AB/PAS stains on A1, B1 and C1. CONTINUED ON NEXT PAGE ------ Name: Robb Padron e/Sex: 78/M : 1945 Unit#: [id number] Attend Dr: Glenn Monroy MD Re09/22/23 Status : [facility] Location: [facility] Disch: ------ SPEC : [id number] RECD : 09/22/23 STATUS: VINOD BUSH NUM: [id number] GLORIA: 09/22/[address] [facility] [address]: Glenn Monroy MD ENTERED: 09/22/23 SP TYPE: Surgical OTHR DR: Clayton Chavez MD ORDERED: HE Stain/6, Gross Micro L4/3, IHC, Special st. 2/3, H. pylori, AB/PAS/3 Copies To: Glenn Monroy MD [facility] [address] [place] [address] Vangie Chavez MD [address] [id number] ------ Signed (signature on file) Farida [place] 09/25/23 1719 ------ END OF REPORT Reason For Referral No Information Medications Medication SIG (Take, Route, Frequency, Duration) [...] Pantoprazole Sodium 40 MG 1 tablet Orally Twice daily for 30 days 11/24/2023 Active Immunizations Vaccine Route Administration Date Status Comme nts Influenza Unknown 12/25/2017 Administered Influenza Unknown 12/26/2018 Administered Influenza Unknown 01/15/2020 Administered Influenza Unknown 11/25/2020 Administered Influenza Unknown 01/17/2023 Administered Influenza Unknown 04/13/2022 Refused Problems Problem Type SNOMED Code ICD Code Onset Dates Problem Status W/U Status Risk Notes Problem 400458492 Colon cancer screening (Z12.11) Active confirmed Problem 74353208 Epigastric pain (R10.13) Active confirmed Problem Gastro-esophage al reflux disease without esophagitis (749956839) Gastro-esophageal reflux disease without esophagitis (K21.9) Active confirmed Problem 204709812 Personal history of colonic polyps (Z86.010) Active confirmed Problem 561317836 Irritable bowel syndrome with diarrhea (K58.0) Active confirmed Problem 129558842 Generalized abdominal pain (R10.84) Active confirmed Problem 191892269 Gastroesophageal reflux disease without esophagitis (K21.9) Active confirmed Problem History of polyp of colon (489705075) History of colon polyps (Z86.010) Active confirmed Problem 613642220 Gastroesophageal reflux disease with esophagitis without hemorrhage (K21.00) Active confirmed Vital Signs Temperature 96.9 degrees Fahrenheit 08/14/2023 Blood pressure diastolic 00 mm Hg 08/14/2023 Height 67 in 08/14/2023 Blood pressure systolic 000 mm Hg 08/14/2023 Weight 162 lb 4 oz lbs 08/14/2023 BMI 25.41 kg/m2 08/14/2023 Encounters Encounter Location Date Provider Diagnosis [facility] [address] [place] [id number] 09/22/2023 Glenn Monroy Jr Gastro-esophageal reflux disease without esophagitis K21.9 [facility] [address] [place] [phone] 08/14/2023 Glenn Monroy Jr Gastroesophageal reflux disease without esophagitis K21.9 and Irritable bowel syndrome with diarrhea K58.0 [facility] [address] [place] [phone] 09/18/2023 Glenn Monroy Jr [facility] [address] [place] [phone] 09/20/2023 Glenn Monroy Jr [facility] [address] [place] [phone] 10/05/2023 Glenn Monroy Jr [facility] [address] [place] [address] 11/24/2023 Glenn Monroy Jr Gastroesophageal reflux disease without esophagitis K21.9 [facility] [address] [place] [address] 11/28/2023 Glenn Monroy Jr [facility] [address] [place] [address] 05/30/2024 Glenn Monroy Jr Assessments Encounter Date Diagnosis (ICD Code) Assessment Notes Treatment Notes Treatment Clinical Notes Section Notes 09/22/2023 Gastro-esophageal reflux disease without esophagitis (ICD-10 - K21.9) 08/14/2023 Irritable bowel syndrome with diarrhea (ICD-10 - K58.0) Reflux symptoms are out of control. He is advised to stop pantoprazole , he will begin lansoprazole . Reflux was discussed in detail including diet and lifestyle modification s. Upper endoscopy will be scheduled. He is aware of risks and benefits and agrees to proceed. Diarrheal symptoms and IBS are under good control and he will continue dicyclomine. 08/14/2023 Gastroesophageal reflux disease without esophagitis (ICD-10 - K21.9) Endoscopy material was printed Reflux symptoms are out of control. He is advised to stop pantoprazole , he will begin lansoprazole . Reflux was discussed in detail including diet and lifestyle modification s. Upper endoscopy will be scheduled. He is aware of risks and benefits and agrees to proceed. Diarrheal symptoms and IBS are under good control and he will continue dicyclomine. 11/24/2023 Gastroesophageal reflux disease without esophagitis (ICD-10 - K21.9) Plan Of Treatment Pending Test Test Name Order Date XR GI SERIES 01/03/2019 Future Test Test Name Order Date UPPER GI ENDOSCOPY 10/29/2014 UPPER GI ENDOSCOPY 01/13/2016 COLONOSCOPY 01/13/2016 UPPER GI ENDOSCOPY 10/29/2020 COLONOSCOPY 10/29/2020 UPPER GI ENDOSCOPY 08/14/2023 Next Appt Details Provider Name:Glenn goss Jr, 07/08/2024 01:35:00 PM, [address] [facility], [address], [place], [address], Insurance Providers Payer Name Payer Address Payer Phone Subscriber Number Group Number Insured Name Patient Relationship to Insured Coverage Start Date Coverage End Date [facility] [address] Attn Claims CIPRIANO Julio [id number] VITO ROBB Self - patient is the insured Medical (General) History Medical History History ICD Code EGD 11/20/20, no Handley's esophagus or H . pylori. 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
--- OUTSIDE RECORDS SUMMARY | 2024-06-27 01:59 | XMS_ITS | Encounter Summary ---
Author Organization [facility] Address [address] [facility] 7 [place] [address] Care Team Providers Care Pipe Puller Name Role Phone Clayton Lyon MD Primary Care Provide r Reason for Visit * Reason Onset Date Comments Hospital Follow-up 06/20/2024 Encounter Details Date Type Department Care Team ([facility] Contact Info) Description 06/20/2024 Telephone [facility] [address] [place], [place] [phone] Clayton Lyon MD [address] [place], [place] [phone] Hospital Follow-up Social History Tobacco Use Types Packs/Day Years Used Date Smoking Tobacco: Former Cigarettes Passive Smoke Exposure: Past Smokeless Tobacco: Former Alcohol Use Standard Drinks/Week Comments Never 0 (1 standard drink = 0.6 oz pur e alcohol) Depression Answer Date Recorded Patient Health Questionnaire-9 Score 0 12/12/2023 Patient Health Questionnaire-9 Score 0 12/12/2023 Last PHQ-9: Questionnaire Data Not on file 0 12/12/2023 Housing Stability Answer Date Recorded What is your housing situation today? I have elenaadam do 04/16/[address] you li ve. Do you have problems with any of the following? Pests such as bugs, ants, or mice 04/16/2024 Food Insecurity Answer Date Recorded Within the past 12 months, y ou worried that your food would run out before you got money to buy more: Never True 12/12/2023 Within the past 12 months,th e food you bought just didn't last and you didn't have enough money to get more: Never True Transportation Answer Date Recorded In the past 12 months, has l ack of transportation kept you from medical appts, meetings, work or from getting things needed for daily living? No 12/12/2023 Utilities Answer Date Recorded In the past 12 months, has t he electric, gas, oil or water company threatened to shut off services in your home? No 12/12/2023 Depression Answer Date Recorded Patient Health Questionnaire-2 Score 0 12/12/2023 Internet Access Answer Date Recorded Internet Access Q1 Yes 12/12/2023 Internet Access Q2 Not on file 12/12/2023 Sex and Gender Information Value Date Recorded Sex Assigned at Male 01/24/2022 10:18 AM EDT Legal Sex Male 10:18 AM EDT Gender Identity Male 01/24/2022 10:18 AM EDT Sexual Orientation Straight 01/24/2022 10 :18 AM EDT documented as of this encounter Miscellaneous Notes * Telephone Encounter - Alysha Carnes - 06/24/2024 10:54 AM EDT Tc from pt returning phone call. [phone] * Telephone Encounter - Jade Zaidi - 06/20/2024 9:42 AM EDT Tc from pt requesting a HDF appt. [place] [facility] of admission: 06/15/2024 Discharge date: 06/19/2024 Diagnosed: Cardiomyopathy heart working 20 % severe heart failure Atrial fibrillation with RVR Pneumonia Diverticulitis *Send message to [place] Clinical Care Coordinators documented in this encounter Plan of Treatment Upcoming Encounters Date Type Department Care Team (Late st Contact Info) Description 07/01/2024 10:00 AM EDT Office Visit [facility] [address] [place] [address] Audrey Noe ANP [address] [place] [address] 08/13/2024 9:15 AM EDT Office Visit [facility] [address] [place] [address] Clayton Lyon MD [address] [place] [address] documented as of this encounter Visit Diagnoses Not on filedocumented in this encounter Additional Health Concerns Assessment Noted Time PHQ-9 Depression Total Score: 0 12/12/19 24 10:28 AM EDT documented as of this encounter Care Teams Pipe Puller Relationship Specialty Start Date End Date Clayton Lyon MD [address] [place] [address] PCP - General Internal Medicine 11/12/[address] [facility] 08/18/21 documented as of this encounter
--- OUTSIDE RECORDS SUMMARY | 2024-06-27 01:59 | XMS_ITS | Encounter Summary ---
Author Organization [facility] [place] [facility] Address [address] [place] [address] 7 [place] [address] Care Team Providers Care Marine Gear Keeper Name Role Phone Clayton Lyon MD Primary Care Provide r Encounter Details Date Type Department Care Team (Latest Contact Info) Description 10/16/2020 Abstract [facility] Dental, Provider, DDS Social History Tobacco Use Types Packs/Day Years [...] Description 07/01/2024 10:00 AM EDT Office Visit [facility] [address] [place] [phone] Audrey Noe ANP [address] [place] [address] 08/13/2024 9:15 AM EDT Office Visit [facility] [address] [place] [phone] Clayton Lyon MD [address] [place] [phone] documented as of this encounter Visit Diagnoses Not on filedocumented in this encounter Care Teams Marine Gear Keeper Relationship Specialty Start Date End Date Clayton Lyon MD [address] [place] [address] PCP - General Internal Medicine 11/12/13 [facility] 08/18/21 documented as of this encounter
--- OUTSIDE RECORDS SUMMARY | 2024-06-27 01:59 | XMS_ITS | Clinical Summary ---
Author Organization [facility] Address [address] [place] [address] Care Team Providers Care Revenue Liaison Name Role Phone Clayton Chavez MD Primary Care Provi debbie Social History Tobacco Use Types Packs/Day Years Used Date Smoking Tobacco: Never Assessed Sex and Gender Information Value Date Recorded Sex Assigned at Not on file Legal Sex Male 3:33 PM EST Gender Identity Not on file Sexual Orientation Not on file Plan of Treatment Health Maintenance Due Date Last Done Comments DTaP,Tdap,and Td Vaccines (1 - Tdap) 1964 Pneumococcal Vaccine: 50+ Years (1 of 1 - PCV) 01/11/1996 Zoster Vaccines (2 of 2) 07/02/2019 05/07/2019 RSV Immunization Adult Patients (1 - 1-dose 75+ series) 2021 Cholesterol Screening (Lipid Panel) 03/06/2022 Depression Screening 03/06/2022 Falls Risk Assessment 03/06/2022 Hepatitis C Screening 03/06/2022 Social Influencers of Health Screening 03/06/2022 COVID-19 Vaccine (1 - 2023-2 5 season) 2023 Influenza Vaccine (#1) 2023 0, 01/08/2019 HIB Vaccines Aged Out No longer eligi ble based on patient's age to complete this topic HPV Vaccines Aged Out No longer eligi ble based on patient's age to complete this topic Hepatitis A Vaccines Aged Out No long er eligible based on patient's age to complete this topic Hepatitis B Vaccines Aged Out No long er eligible based on patient's age to complete this topic IPV Vaccines Aged Out No longer eligi ble based on patient's age to complete this topic MMR Vaccines Aged Out No longer eligi ble based on patient's age to complete this topic Meningococcal ACWY Vaccine Aged Out N o longer eligible based on patient's age to complete this topic Meningococcal B Vacine Aged Out No lo nger eligible based on patient's age to complete this topic RSV Immunization Patients Under 20 months Aged Out No longer eligible b ased on patient's age to complete this topic Varicella Vaccines Aged Out No longer eligible based on patient's age to complete this topic Care Teams Revenue Liaison Relationship Specialty Start Date End Date Clayton Chavez MD [address] [place] [address] [facility] [place] [phone] PCP - General Internal Medicine 06/26/14
--- OUTSIDE RECORDS SUMMARY | 2024-06-27 01:59 | XMS_ITS | Clinical Summary ---
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 03/01/20 22 Active metoprolol tartrate (Lopressor) 25 MG tablet Take 25 mg by mouth 2 times daily. 03/01/20 22 Active FREESTYLE LITE test strip USE TO TEST BLOOD SUGAR TWICE DAILY DIRECTED 12/17/19 Active Blood Glucose Monitoring Suppl (FreeStyle Chenoa Lite) w/Device kit USE FOR TEST BLOOD SUGAR EVERY DAY 05/28/19 22 Active atorvastatin (Lipitor) 80 MG tablet Take 80 mg by mouth in the morning. 10/15/19 22 Active amitriptyline (Elavil) 25 MG tablet Take 25 mg by mouth at bedtime. 12/10/19 22 Active acetaminophen (Tylenol) 500 MG tablet Take 1 tablet by mouth every 8 (eight) hours. 12/29/19 21 Active metFORMIN XR (Glucophage-XR) 500 MG 24 hr tabletIndicatio ns:Type 2 diabetes mellitus without complication, without long-term current use of insulin (CMS/HCC) TAKE 1 TABLET BY MOUTH EVERY EVENING WITH FOOD 30 tablet 6 02/09/20 23 Active albuterol (2.5 MG/3ML) 0.083% nebulizer solutionIndicat ions:Bronchitis INJECT 1 AMPULE USING A NEBULIZER EVERY 6 HOURS NEEDED FOR WHEEZING 90 mL 1 02/13/20 24 Active triamcinolone (Kenalog) 0.1 % creamIndication s:Pityriasis rosea Apply topically if needed in the morning and at bedtime (pain and swelling). 30 g 2 04/05/19 25 Active Ventolin HFA 108 (90 Base) MCG/ACT inhalerIndicati ons:Restrictive lung disease INHALE 2 PUFFS BY MOUTH EVERY 4 HOURS NEEDED FOR WHEEZING OR SHORTNESS OF BREATH 18 g 1 04/16/19 25 Active Multiple Vitamin (Multivitamin) tabletIndicatio ns:Fatigue due to excessive exertion, sequela Take 1 tablet by mouth in the morning. 90 tablet 05/24/19 25 Active Eliquis 5 MG tablet Take 1 tablet by mouth 2 times daily. 06/20/19 25 Active digoxin (Lanoxin) 125 MCG tablet Take 1 tablet by mouth Once per day. 06/20/19 25 Active valsartan (Diovan) 40 MG tablet Take 0.5 tablets by mouth 2 times daily. 06/20/19 25 Active SUMAtriptan (Imitrex) 50 MG tablet TAKE 1 TABLET BY MOUTH AT ONSET OF MIGRAINE. MAY REPEAT ONCE AFTER 2 HOURS IF NEEDED Active nitroglycerin (Nitrostat) 0.4 MG SL tablet DISSOLVE 1 TABLET UNDER THE TONGUE EVERY 5 MINUTES NEEDED FOR CHEST PAIN. CALL 911 IF NO RELIEF DO NOT EXCEED 3 TABLETS PER 15 MINUTES 12/10/19 22 025 Discontinued(Me d list cleanup (will not trigger notification to Pharmacy)) Myrbetriq 25 MG 24 hr tablet Take 25 mg by mouth in the morning. 01/14/20 22 025 Discontinued(Me d list cleanup (will not trigger notification to Pharmacy)) losartan (Cozaar) 100 MG tablet Take 100 mg by mouth in the morning. 10/13/19 22 025 Discontinued(Me d list cleanup (will not trigger notification to Pharmacy)) ibuprofen 800 MG tablet Take 800 mg by mouth if needed in the morning, at noon, and at bedtime. 12/10/19 22 025 Discontinued(Me d list cleanup (will not trigger notification to Pharmacy)) Proctozone-HC 2.5 % rectal creamIndication s:Grade II hemorrhoids INSERT RECTALLY TWICE DAILY 30 g 1 12/02/19 23 025 Discontinued(Me d list cleanup (will not trigger notification to Pharmacy)) Diclofenac Sodium 1 % gelIndications: Arthralgia, unspecified joint Apply to affected are twice daily as needed 100 g 3 02/15/20 23 025 Discontinued(Me d list cleanup (will not trigger notification to Pharmacy)) Aspirin Low Dose 81 MG EC tablet TAKE 1 TABLET BY MOUTH EVERY DAY 90 tablet 3 11/30/19 24 025 Discontinued(Me d list cleanup (will not trigger notification to Pharmacy)) Active Problems Problem Noted Date Diagnosed Date Diverticulosis 04/30/2024 Assessment & Plan (04/30/2024 9:22 AM EST): Pt seen in the Er 03/11/[address]/CT abdomen pelvis w IV con 1. No acute posttraumatic abnormalities. 2. Mild acute diverticulitis without complication at the junction of the descending and sigmoid colon left lower quadrant. 3. Additional ancillary findings as discussed in the body of the report. Electronically signed by: Petre Briggs MD 03/11/2024 Rx with abx Last colonoscopy 11/20/[address] Monroy showed mild diverticulosis on the sigmoid Tympanic membrane perforation, left 03/07/2024 Assessment & Plan (04/30/2024 9:41 AM EST): Patient here for a follow up with c/o spontaneous bleeding from his left ear 2 days prior to his appointment, prior to that he had c/o mild ear discomfort. On previous exam there was evidence of a tiny TM perforation and what appeared some dried blood in the IAC. On today's exam, I can still see an area of dried out blood in the IAC, I am unable to see if here is a small lesion or ulcer in the IAC Patient is already scheduled for ENT evaluation for 06/20/2024. I have reminded patient of the appointment and to call the ENT office to see if they can see him sooner Pt denies any earache, no discharge. Assessment & Plan (03/07/2024 10:14 AM EST): Patient with c/o spontaneous bleeding from his left ear 2 days ago, prior to that he had c/o mild ear discomfort. On exam there is evidence of a tiny TM perforation and what appears some dried blood in the IAC. Plan: ENT evaluation Fibromyalgia 11/01/2022 Assessment & Plan (11/01/2022 10:24 AM EDT): Pt seen by [facility] Dr Garcia He reviewed his laboratory results That included: CRP, RF, ESR and DAVIE were all Normal His assessment was that patient had fibromyalgia Right hand pain 11/01/2022 Assessment & Plan (02/14/2023 10:24 AM EST): Patient with painful right index finger, difficulty bending it. Seen at [facility] received steroid injections with good results 11/24/2022 Assessment & Plan (11/01/2022 10:25 AM EDT): Patient with painful right index finger, difficulty bending it. Seen in the past at [facility] received steroid injections with good results Pt would like to go back Grade II hemorrhoids 11/01/2022 Assessment & Plan (02/14/2023 10:24 AM EST): Evaluated by Dr Carney 10/2022 opted for conservative measures Assessment & Plan (11/01/2022 10:32 AM EDT): Patient with c/o BRBPR Exam indicative of hemorrhoids Plan: Increase fluid, fiber in diet Proctosl H Referral to Dr Carney [facility] health care 08/02/2022 Assessment & Plan (03/07/2024 9:56 AM EST): PSA 12/14/2023 Normal. Colonoscopy: 11/20/[address] Monroy 5 yr f/u Vaccines: up to date Assessment & Plan (12/12/2023 10:32 AM EDT): PSA 12/05/2022 Normal. Colonoscopy: 11/20/[address] Monroy 5 yr f/u Vaccines: up to date Assessment & Plan (08/02/2022 9:27 AM EDT): PSA 06/07/2019 Normal. Colonoscopy: 11/20/[address] Monroy 5 yr f/u Vaccines: up to date Skin tags, multiple acquired 08/02/2022 Assessment & Plan (08/02/2022 9:49 AM EDT): Will refer to Adult derm clinic for criofreeze Bronchitis 05/31/2022 Assessment & Plan (05/31/2022 8:30 AM EST): Pt seen in the ER at [facility] yesterday with cough, diagnosed with bronchitis. Treated with Prednisone, Benzonatate and a z-pack, Chest x-ray was negative Arthralgia 05/12/2022 Assessment & Plan (05/30/2022 12:49 PM EST): Televisit Pt seen by Dr. Enrique [facility] with c/o arthralgias, worse the last 2 weeks. Lab work up included: CRP, RF, ESR and DAVIE were all Normal Pt had already been referred to to rheumatology on 05/12/2022. Assessment & Plan (05/12/2022 1:57 PM EST): Chronic arthralgia, worse the last 2 weeks. Labs pending. Referral to rheumatology sent 05/12/2022. Chronic left shoulder pain 03/29/2022 Assessment & Plan (03/29/2022 12:44 PM EST): Improved He initially presented with c/o acute on chronic Left shoulder pain. Seen in the past at [facility], last seen 02/27/2019 received a steroid injection with no good results. Pt described the pain as 7/10 associated with decreased ROM in the absence of any injury. Exam was suggestive of impingement/tendinosis, no evidence of infection, no redness, no warmth, no effusion. Plain films left shoulder showed mild degenerative changes and c-spine films were unremarkable He was treated with NSAIDS and Tylenol as well as Tizanidine prn He requested a second opinion with Ortho Dr Jackson who saw him in March 2019 His impression was that he had a trapezius muscle spasm and recommended PT. Primary insomnia 03/29/2022 Assessment & Plan (03/29/2022 12:55 PM EST): Pt did not tolerate Rozerem, Did well with Remeron prescribed by Dr. Lara Since doing well, will continue same regimen Other male erectile dysfunction 03/29/2022 Assessment & Plan (03/29/2022 12:57 PM EST): New onset. will obtain a Testosterone free and total On Viagra. Pulmonary nodules 03/29/2022 Assessment & Plan (03/29/2022 12:59 PM EST): Of Note pt had a Chest CT on 10/08/2010 that showed a 4 mm nodule in the left lower lobe. This was done on 01/03/2012 and was stable and unchanged 1 year f/u was recommended. This was done on: 04/01/2013 and it was unchanged NO further imaging was recommended Gastroesophageal reflux dise ase with esophagitis without hemorrhage 03/28/2022 Assessment & Plan (12/12/2023 10:36 AM EDT): Pt taking Pantoprazole 40 mg po daily Recently seen in the ER 11/14/2023 after he presented for evaluation of burning upper abdominal pain that radiates into his throat. He follows with Dr. Monroy. He had an upper endoscopy on 09/22/2023 with biopsy that was negative for dysplasia. Assessment & Plan (08/02/2022 9:43 AM EDT): Pt taking Omeprazole 20 mg po BID Assessment & Plan (03/29/2022 12:40 PM EST): Pt with GERD previous work up included a CT of his abdomen that was unremarkable Pt has been taking Famotidine 20 mg po BID. Pt is being followed by Dr. Monroy. Repeat CT of abdomen and Pelvis 05/23/2017 was unremarkable Underwent repeat EGD 10/2020 Last seen 09/02/2021 Restrictive lung disease 03/28/2022 Assessment & Plan (03/29/2022 12:46 PM EST): Pt with intermittent cough associated with sob, seen in the ER diagnosed with ? Mild persistent asthma. Seen by Dr. Edouard for a HDF and recommended PFTs. PFts done in 07/2018 showed: Restrictive pulmonary disorder, moderately severe. No significant obstructive airway disorder. Clinical correlation recommended. Pt was seen by [employer] 08/2018 who thought this was due to abdominal obesity and poor inspiratory efforts due to cervical pain and that his Gibson was mainly due to diastolic dysfunction rather than pulmonary in etiology. He ordered a Chest CT 10/02/2018 that showed: Question mild basilar peripheral interstitial disease. Some of these changes may be due to dependent atelectasis. Prone imaging would be helpful. Stable 4 mm peripheral or subpleural left lower lobe nodule probably representing a subpleural lymph node. Mild coronary artery calcification. Type 2 diabetes mellitus without complication Assessment & Plan (04/30/2024 9:35 AM EST): Patient is here for a follow up, doing well Hgb A1c 03/07/2024: 6.6 He is on Metformin XR 500 mg po daily Pt reports compliance with Asa 81 mg po daily Foot check today is risk of: zero Plan: continue current regimen Pt educated about DM Pt advised to: adhere to diabetic diet check your blood sugars regularly check your feet on a daily basis. f/u 4 months Assessment & Plan (03/07/2024 10:16 AM EST): Patient is here for a follow up Hgb A1c 03/07/2024: 6.6 He is on Metformin XR 500 mg po daily Pt reports compliance with Asa 81 mg po daily Foot check today is risk of: zero Plan: continue current regimen Pt educated about DM Pt advised to: adhere to diabetic diet check your blood sugars regularly check your feet on a daily basis. f/u 4 months Assessment & Plan (12/12/2023 10:32 AM EDT): Patient is here for a follow up Hgb A1c 12/12/2023: 6.6 Pt reports blood sugars at home controlled He is on Metformin XR 500 mg po daily Pt reports compliance with Asa 81 mg po daily Foot check today is risk of: zero Plan: continue current regimen Pt educated about DM Pt advised to: adhere to diabetic diet check your blood sugars regularly check your feet on a daily basis. f/u 4 months Assessment & Plan (02/14/2023 10:25 AM EST): Patient is here for a follow up Hgb A1c 02/14/2023 is: 6.1 Pt reports blood sugars at home controlled He is on Metformin XR 500 mg po daily Pt reports compliance with Asa 81 mg po daily Foot check today is risk of: zero Plan: continue current regimen Pt educated about DM Pt advised to: adhere to diabetic diet check your blood sugars regularly check your feet on a daily basis. f/u 4 months Assessment & Plan (11/01/2022 10:28 AM EDT): Patient is here for a follow up Hgb A1c 11/01/2022 is: 6.1 Pt reports blood sugars at home controlled He is on Metformin XR 500 mg po daily Pt reports compliance with Asa 81 mg po daily Foot check today is risk of: zero Plan: continue current regimen Pt educated about DM Pt advised to: adhere to diabetic diet check your blood sugars regularly check your feet on a daily basis. f/u 4 months Assessment & Plan (08/02/2022 2:54 PM EDT): Patient is here for a follow up Hgb A1c Not done due to a cartridge issue Pt reports blood sugars at home controlled Eye exam Microalbumin ordered Pt on ARB Foot check today is risk of: zero He is on Metformin XR 500 mg po daily Pt reports compliance with Asa 81 mg po daily Plan: continue current regimen Pt educated about DM Pt advised to: adhere to diabetic diet check your blood sugars regularly check your feet on a daily basis. f/u 4 months Assessment & Plan (03/29/2022 12:08 PM EST): FBS 05/24/2021 was 138 Hgb A1c 05/24/2021 was 6.7 Eye exam Microalbumin ordered Pt on ARB Foot check today is risk of: zero On Metformin XR 500 mg po daily Pt reports compliance with Asa 81 mg po daily Plan: continue current regimen Pt educated about DM Pt adviced to: adhere to diabetic diet check your blood sugars regularly check your feet on a daily basis. f/u 4 months Essential hypertension 04/02/2018 Assessment & Plan (03/07/2024 9:56 AM EST): Patient is here for a follow up BP remains under control He is on a regimen of: Metoprolol XL 25 mg ( 1.5 tabs ) po daily and Losartan 100 mg po daily Given adequate blood pressure control will continue with current regimen Most recent electrolytes, Bun and Creatinine done on: 11/14/2023 were wnl. patient advised to adhere to a low sodium diet, encouraged about medication compliance, counseled about weight loss. Assessment & Plan (12/12/2023 10:29 AM EDT): Patient is here for a follow up BP remains under control He is on a regimen of: Metoprolol XL 25 mg ( 1.5 tabs ) po daily and Losartan 100 mg po daily Given adequate blood pressure control will continue with current regimen Most recent electrolytes, Bun and Creatinine done on: 11/14/2023 were wnl. patient advised to adhere to a low sodium diet, encouraged about medication compliance, counseled about weight loss. Assessment & Plan (02/14/2023 10:23 AM EST): Patient is here for a follow up BP remains under control He is on a regimen of: Metoprolol XL 25 mg ( 1.5 tabs ) po daily and Losartan 100 mg po daily Given adequate blood pressure control will continue with current regimen Most recent electrolytes, Bun and Creatinine done on: 04/04/2022 were wnl. Will repeat patient advised to adhere to a low sodium diet, encouraged about medication compliance, counseled about weight loss. Assessment & Plan (11/01/2022 10:13 AM EDT): Patient is here for a follow up BP remains under control He is on a regimen of: Metoprolol XL 25 mg ( 1.5 tabs ) po daily and Losartan 100 mg po daily Given adequate blood pressure control will continue with current regimen Most recent electrolytes, Bun and Creatinine done on: 04/04/2022 were wnl. patient advised to adhere to a low sodium diet, encouraged about medication compliance, counseled about weight loss. Assessment & Plan (08/02/2022 9:21 AM EDT): Patient is here for a follow up BP controlled He is on a regimen of: Metoprolol XL 25 mg ( 1.5 tabs ) po daily and Losartan 100 mg po daily Given adequate blood pressure control will continue with current regimen Most recent electrolytes, Bun and Creatinine done on: 04/04/2022 were wnl. patient advised to adhere to a low sodium diet, encouraged about medication compliance, counseled about weight loss. Assessment & Plan (03/29/2022 12:42 PM EST): BP controlled He is on a regimen of: Metoprolol XL 25 mg ( 1.5 tabs ) po daily and Losartan 100 mg po daily Given adequate blood pressure control will continue with current regimen Most recent electrolytes, Bun and Creatinine done on: 05/05/2021 were wnl. patient advised to adhere to a low sodium diet, encouraged about medication compliance, counseled about weight loss. Tubular adenoma of colon 05/17/2016 Assessment & Plan (08/02/2022 9:27 AM EDT): Colonoscopy: 11/20/[address] Monroy 5 yr f/u Cerebrovascular accident 07/10/2013 Chronic headache disorder 03/22/2013 Assessment & Plan (03/29/2022 12:43 PM EST): Pt with Hx of chronic headaches, seen in the past by Neurology Dr Talbert, previous visit pt c/o worsening Patient is back under the care of Neurology who recommended amytriptiline. last note on record 01/19/2021 Tinnitus 03/22/2013 Benign prostatic hyperplasia 03/01/2012 Assessment & Plan (03/07/2024 9:54 AM EST): Pt here for a follow up. Hx of bladder neck incision by Dr penny LOAIZA in september 2007. He is now under the care of Dr. Rivera, last seen 11/2023 PSA 12/14/2023: 0.39 Assessment & Plan (03/29/2022 12:58 PM EST): Pt with a Hx. of BPH s/p bladder neck incision by Dr penny LOAIZA in september 2007. In August 2011 had a repeat PSA on 11/01/2013 that was wnl at 0.37 Pt was seen again by Dr Guy for re-evaluation on 03/27/2012. He recommended a cystoscopy and urodynamic testing.. Chronic low back pain 12/20/2011 Assessment & Plan (03/29/2022 12:54 PM EST): Pt with chronic low back pain, under the care of [facility] Most recent MRI of his LS spine done showed: 1. Gegd-bw-ppnhptie loss of disc height at L4-L5 with a right paracentral disc extrusion resulting in mass effect upon the right L5 nerve root. Mild central canal stenosis. Broad-based left lateral disc protrusion and endplate spurring abutting the exiting left L4 nerve root. Vnov-ev-yqrpdrqr bilateral foraminal narrowing. 2. Mild spondylitic changes at other disc levels as described. No central canal stenosis. Pt has a f/u with them Chronic neck pain 12/20/2011 Depressive disorder 09/07/2011 Hypercholesterolemia 09/07/2011 Assessment & Plan (03/07/2024 9:55 AM EST): Patient with elevated lipids. Most recent lipid profile from: Lab Results Component Value Date TRIG 93 12/14/2023 TRIG 145 02/14/2023 CHOL 162 12/14/2023 CHOL 241 (H) 02/14/2023 LDLCHOLCAL 105 (H) 12/14/2023 LDLCHOLCAL 173 (H) 02/14/2023 HDL 39 (L) 12/14/2023 HDL 39 (L) 02/14/2023 Currently on a regimen of: Lipitor 80 mg po qhs. Continue current regimen. Advised to try to adhere to a low cholesterol diet, counseled and educated about diet and exercise, Patient encouraged to come up with a personal goal for weight loss. Assessment & Plan (12/12/2023 10:31 AM EDT): Patient with elevated lipids. Most recent lipid profile from: Lab Results Component Value Date TRIG 145 02/14/2023 TRIG 141 04/04/2022 CHOL 241 (H) 02/14/2023 LDLCHOLCAL 173 (H) 02/14/2023 HDL 39 (L) 02/14/2023 Currently on a regimen of: Lipitor 80 mg po qhs. Continue current regimen.Recheck Lipid profile advised to try to adhere to a low cholesterol diet, counseled and educated about diet and exercise, Patient encouraged to come up with a personal goal for weight loss. Assessment & Plan (08/02/2022 9:24 AM EDT): Patient with elevated lipids. Most recent lipid profile from: 04/04/2022 shows a total cholesterol of: 160 triglycerides of: 141 HDL of: 36 and LDL of: 100 Currently on a regimen of: Lipitor 80 mg po qhs. Continue current regimen. advised to try to adhere to a low cholesterol diet, counseled and educated about diet and exercise, Patient encouraged to come up with a personal goal for weight loss. Assessment & Plan (03/29/2022 12:52 PM EST): Patient with elevated lipids. Most recent lipid profile from: 05/05/2021 shows a total cholesterol of: 136 triglycerides of: 166 HDL of: 30 and LDL of: 80 Currently on a regimen of: Lipitor 80 mg po qhs. Continue current regimen. advised to try to adhere to a low cholesterol diet, counseled and educated about diet and exercise, Patient encouraged to come up with a personal goal for weight loss. Resolved Problems Problem Noted Date Diagnosed Date Resolved Date Viral upper respiratory tract infection 02/14/2023 12/12/2023 Assessment & Plan (02/14/2023 10:56 AM EST): Pt with c/o mild clear nasal discharge, no sore throat, no cough, no fever x 6 days, pt feels he is improving covid and flu negative No further intervention necessary Encounters Date Type Department Care Team Description 06/24/2024 Patient Outreach [address] [phone] Clayton Lyon MD Transition Of Care (Tcm) (HDF- scheduled and SDOH screening was completed on 04/16/2024) 06/20/2024 Patient Outreach [address] [id number] Clayton Lyon MD Transition Of Care (Tcm) (HDF unscheduled) 06/20/[address] [address] Clayton Lyon MD Hospital Follow-up 06/15/2024 Orders Only [facility] External Provider, [facility] 05/24/2024 Refill [facility] [address] [place] [address] Aline Bird LPN Fatigue due to excessive exertion, sequela 04/30/2024 9:15 AM EST Office Visit [address] [address] Clayton Lyon MD Type 2 diabetes mellitus without complication, without long-term current use of insulin ([facility]) (Primary Dx); Diverticulosis; Tympanic membrane perforation, left 04/30/2024 Travel 04/23/[address] [address] Clayton Lyon MD Referral 04/22/[address] [address] Clayton Lyon MD Chart Prep 04/17/2024 Patient Outreach [address] [address] Clayton Lyon MD Care Coordination ([facility] outreach SDOH pest control - referral completed ) 04/16/2024 Patient Outreach [address] [address] Clayton Lyon MD Pre-visit Planning (SDOH Screening positive and Tobacco screening negative) 04/15/[address] [place] [address] Clayton Lyon MD Restrictive lung disease 04/09/2024 Telephone [facility] [address] [place], [place] [phone] Clayton Lyon MD Medication REfill 04/05/2024 1:45 PM EST Office Visit [facility] [address], [place] [phone] Carter Edouard MD Pityriasis rosea (Primary Dx); Seborrheic keratosis 04/05/2024 Travel 04/01/2024 Telephone [facility] [address] [place] [address] Clayton Lyon MD from Last 3 Months Immunizations Name Administration Dates Next Due Influenza High-dose Quadriva lent Preservative Free 02/14/2023,01/22/2020 Influenza injectable quadriv alent IIV4 with preservative 04/20/2017 Influenza injectable quadriv alent preservative free 04/27/2021,01/08/2019,05/17/2016 Influenza, High Dose Seasona l, Preservative Free 12/05/2023,12/19/2017 Influenza, IIV3, injectable 11/25/2020,1 ,12/26/2018,12/25,11/25/2009 Moderna Covid-19 Vaccine 12+ 08/29/2020 Pneumococcal Conjugate PCV 13 01/21/2016 Pneumococcal Polysaccharide PPSV23 08/17/2017 TD (adult), 2 Lf tetanus tox oid, preservative free, adsorbed 12/12/2023,07/24/2012 Tdap 03/22/2013 Zoster, Recombinant 10/01/2020,05/07/2019 Zoster, live 06/26/2014 Social History Tobacco Use Types Packs/Day Years Used Date Smoking Tobacco: Former Cigarettes Passive Smoke Exposure: Past Smokeless Tobacco: Former Tobacco Cessation:Counseling Given: Not Answered Alcohol Use Standard Drinks/Week Comments Never 0 (1 standard drink = 0.6 oz pur e alcohol) Depression Answer Date Recorded Patient Health Questionnaire-9 Score 0 12/12/2023 Patient Health Questionnaire-9 Score 0 12/12/2023 Last PHQ-9: Questionnaire Data Not on file 0 12/12/2023 Housing Stability Answer Date Recorded What is your housing situation today? I have elena do 04/16/[address] you [...] Orientation Straight 01/24/2022 10 :18 AM EDT Last Filed Vital Signs Vital Sign Reading Time Taken Comments Blood Pressure 122/74 04/30/2024 9:21 AM EST Pulse 56 04/30/2024 9:21 AM EST Temperature 36.1 ??C (97 ??F) 04/30/2024 9:21 AM EST Respiratory Rate 18 04/30/2024 9:21 AM EST Oxygen Saturation 97% 03/07/2024 9:54 AM EST Inhaled Oxygen Concentration - - Weight 75.4 kg (166 lb 2 oz) 04/30/2024 9:21 AM EST Height 170.2 cm (5' 7 ) 04/30/2024 9:21 AM EST Body Mass Index 26.02 04/30/2024 9:21 AM EST Plan of Treatment Upcoming Encounters Date Type Department Care Team (Late st Contact Info) Description 07/01/2024 10:00 AM EDT Office Visit [facility] [address], [place] [phone] Audrey Noe ANP [address] [place] [address] 08/13/2024 9:15 AM EDT Office Visit [facility] [address], [place] [phone] Clayton Lyon MD [address] [place], [place] [phone] Health Maintenance Due Date Last Done Comments Eye Exam 01/11/1955 RSV Patients and Patients Aged 60 years or older (1 - 1-dose 75+ series) 2021 COVID-19 Vaccine ( season) 2023 04/27/2021, 08/29/2020, 08/01/2020 Diabetes: Hemoglobin A1C 09/05/2024 024, 12/12/2023, 02/14/2023, Additional history exists Depression Screening 12/11/2024 12/12/2023, 12/12/19 Diabetes: Foot Exam 12/11/2024 12/12/2023, 12/12/2023, 12/12/2023 Diabetes: Urine Protein Screening 12/13/2024 12/14/2023, 04/04/2022, 06/10/2021 Lipid Panel 12/13/2024 12/14/2023, 01/26, 04/04/2022, Additional history exists Alcohol/Substance Use Screening 03/07/2025 03/07/2024 SDOH Screening 04/16/2025 04/16/2024 Tobacco Screening 04/30/2025 04/30/2024 DTaP/Tdap/Td Vaccines (3 - Td or Tdap) 12/11/2033 12/12/2023, 03/22/2013, 07/24/2012 Pneumococcal Vaccine: 50+ Years Completed 08/17/2017, 01/21/2016 Zoster Vaccines Completed 10/01/2020, 04/27, 06/26/2014 Hepatitis C Screening Completed 04/04/2022, 020 Influenza Vaccine Completed 12/05/2023, , 04/27/2021, Additional history exists HIB Vaccines Aged Out No longer eligi [...] patient's age to complete this topic Meningococcal Vaccine Aged Out No samuel gabby eligible based on patient's age to complete this topic RSV under 20 months Aged Out No longe r eligible based on patient's age to complete this topic Rotavirus Vaccines Aged Out No longer eligible based on patient's age to complete this topic Procedures Procedure Name Priority Date/Time Associated Diagnosis Comments URINALYSIS, COMPLETE, WITH REFLEX TO CULTURE Routine 06/15/2024 2:[address] ABDOMEN PELVIS W CONTRAST Routine 06/15/2024 1:52 PM EDT HIGH SENSITIVITY TROPONIN I Routine 06/15/2024 1:16 PM EDT XR CHEST 1 VIEW Routine 06/15/2024 11:34 AM EDT SARS COV2/INFLUENZA A/B AND RSV RNA QL NAAT Routine 06/15/2024 11:11 AM EDT POCT GLUCOSE Routine 04/30/2024 9:23 AM EST Type 2 diabetes mellitus without complication, without long-term current use of insulin ([facility]) POCT GLYCATED HEMOGLOBIN, TOTAL Routine 03/07/2024 10:01 AM EST Type 2 diabetes mellitus without complication, without long-term current use of insulin (CMS/HCC) LIPID PANEL, STANDARD Routine 12/14/2023 9:24 AM EDT Hypercholesterolemi a ALBUMIN, RANDOM URINE W/CREATININE Routine 12/14/2023 9:20 AM EDT Type 2 diabetes mellitus without complication, without long-term current use of insulin ([facility]/HCC) HEPATITIS C AB W/REFL TO HCV RNA, QN, PCR Routine 04/04/2022 10:44 AM EST Type 2 diabetes mellitus without complication, without long-term current use of insulin ([facility]/HCC) from Last 3 Months or Most Recently Relevant to Health Maintenance Results * (ABNORMAL) Urinalysis, Complete, with Reflex to Culture (06/15/2024 2:21 PM EDT) Color Urine Yellow [facility] Appearance Urine Clear [facility] PH 7.0 5.0 - 9.0 [facility] Glucose Urine UA Negative Negative mg/dL [facility] Urine Blood Negative Negative [facility] Specific [place] - Urine >=1.030(H) 1.005 - 1.025 [facility] Urine Protein Negative Neg-Trace mg/dL [facility] Urine Ketones Negative Negative mg/dL [facility] Nitrite Urine Negative Negative [facility] Leukocyte Esterase Urine Negative Negative [facility] RBC Urine 0-2 0 - 2 /HPF [facility] Urine WBC 0-5 0 - 5 /HPF [facility] Urine Squamous Epithelial Cell 0-2 0 - 2 /HPF [facility] Urine Bacteria None Seen None Seen [facility] Hyaline Casts, Urine 0-2 0 - 2 /LPF [facility] 06/15/2024 2:21 PM EDT 06/15/2024 2:33 PM EDT Narrative [facility] - 06/15/2024 2:40 PM EDT Urine, Clean Catch us Generic External Data Provider LAB URINE ORDERAB LES Final Result [facility] [address] [place] [phone] * CT Abdomen Pelvis w/ Contrast (06/15/2024 1:52 PM EDT) Anatomical Region Laterality Modality Body, Pelvis, Abdomen Computed T omography 06/15/2024 1:52 PM EDT Narrative 06/15/2024 1:54 PM EDT ? [facility] ?[address] ?[place] [address] ? CT Scan Report ? Signed ? Patient: Davis,Shelton ?MR#: [id number] ? : 1945 ?Acct:[id number] ? Age/Sex: 79 / M ?ADM Date: 06/15/24 ? Loc: HO.ED ? Attending Dr: ? Ordering Physician: Shira Robison ?? Date of Service: 06/15/24 ?? Procedure(s): CT abdomen pelvis w IV con ?? Accession Number(s): [id number] ? cc: Clayton Chavez MD; Shira Robison ? Report Number: ?? [id number]: Total DLP = ??459.00 mGy-cm ? CLINICAL HISTORY: abd pain ? CT ABDOMEN AND PELVIS WITH CONTRAST ? Comparison: CT/VT/SR - CT ABDOMEN PELVIS W IV CON - 03/11/24 10:04 EST ? Findings: ?? There is motion artifact. ?? Bilateral lower lobe atelectasis and/or infiltrates. Suspect concomitant ?? scarring. ?? No pleural effusion. ?? Cardiomegaly. ? No acute abnormalities in the solid organs or gallbladder. ?? Diffuse fatty infiltration of the liver. Subtle surface nodularity ?? suggests early cirrhotic morphology. ?? No large calcified gallstone. ?? No AAA. 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 dilatation. ?? No urolithiasis. Tiny left renal cortical hypodensities are too small to ?? accurately characterize. ?? No bowel obstruction, pneumoperitoneum, or pneumatosis. ?? Multiple colonic diverticula. Mild paracolic fat stranding in the distal ?? descending colon extends to the proximal sigmoid. ?? No ascites or significant mesenteric edema. ? The appendix is not seen. ?? Mild prostatomegaly. Questionable TURP defect. Prostatic calcifications. ?? No acute fracture. ? IMPRESSION: ?? Diverticulosis coli. Probable mild/early diverticulitis in the distal ?? descending colon and proximal sigmoid. ? This document has been electronically signed by: Marcela Barone, DO on ?? 06/15/2024 13:52:13 ? Dictated By: ?Marcela Barone MD ? Signed By: ?<Electronically signed by Marcela Barone MD in OV> ?06/15/24 1353 ? DD/ 1352 ? TD/TT: 06/15/24 1352 ? Chemical Operations Specialist: ? Procedure Note Donotuseinterpreter, Image - 06/15/[address] [place] [address] [address] Scan Report Signed Patient: Mariah Davis#: [id number] : 1945cct:[id number] Age/Sex: 79 / MADM Date: 06/15/24 Loc: HO.ED Attending Dr: Ordering Physician: Shira Robison Date of Service: 06/15/24 Procedure(s): CT abdomen pelvis w IV con Accession Number(s): [id number] cc: Clayton Chavez MD; Shira Robison Report Number: [id number]: Total DLP = 459.00 mGy-cm CLINICAL HISTORY: abd pain CT ABDOMEN AND PELVIS WITH CONTRAST Comparison: CT/VT/SR - CT ABDOMEN PELVIS W IV CON - 03/11/24 10:04 EST Findings: There is motion artifact. Bilateral lower lobe atelectasis and/or infiltrates. Suspect concomitant scarring. No pleural effusion. Cardiomegaly. No acute abnormalities in the solid organs or gallbladder. Diffuse fatty infiltration of the liver. Subtle surface nodularity suggests early cirrhotic morphology. No large calcified gallstone. No AAA. 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 No urolithiasis. Tiny left renal cortical hypodensities are too small to accurately characterize. No bowel obstruction, pneumoperitoneum, or pneumatosis. Multiple colonic diverticula. Mild paracolic fat stranding in the distal descending colon extends to the proximal sigmoid. No ascites or significant mesenteric edema. The appendix is not seen. Mild prostatomegaly. Questionable TURP defect. Prostatic calcifications. No acute fracture. IMPRESSION: Diverticulosis coli. Probable mild/early diverticulitis in the distal descending colon and proximal sigmoid. This document has been electronically signed by: Marcela Barone DO on 06/15/2024 13:52:13 Dictated By: Marcela Barone MD Signed By: <Electronically signed by Marcela Barone MD in OV> 06/15/24 1353 DD/ 1352 TD/TT: 06/15/24 1352 Chemical Operations Specialist: [facility] External Provider IMG CT PROCEDURES Edited Result - Final * High Sensitivity Troponin I (06/15/2024 1:16 PM EDT) TROPONIN I HIGH SENSITIVITY 12.3 <3.5 - 35.0 ng/L [facility] Comment:The Matias high sens itivity Troponin-I results should beused in conjunction with other diagnostic information suchas ECG, clinical observations and information, and patientsymptoms to aid in the diagnosis of GA. 06/15/2024 1:16 PM EDT 06/15/2024 1:18 PM EDT Narrative [facility] - 06/15/2024 1:52 PM EDT Comment RPT TROP AT 1304 Generic External Data Provider LAB BLOOD ORDERAB LES Final Result Performing Organization Address City/State/[facility] Co de Phone Number [facility] [address] [place] [phone] * XR Chest 1 View (06/15/2024 11:34 AM EDT) Anatomical Region Laterality Modality Chest Radiographic Lisset ging 06/15/2024 11:3 4 AM EDT Narrative 06/15/2024 11:35 AM EDT ? [facility] ?[address] ?[place] [address] ?XRay Report ? Signed ? Patient: Davis,Shelton ?MR#: [id number] ? : 1945 ?Acct:[id number] ? Age/Sex: 79 / M ?ADM Date: 06/15/24 ? Loc: HO.ED ? Attending Dr: ? Ordering Physician: Shira Robison ?? Date of Service: 06/15/24 ?? Procedure(s): XR chest 1V ?? Accession Number(s): [id number] ? cc: Clayton Chavez MD; Shira Robison ? CLINICAL HISTORY: weakness - unwell ? 1 view chest x-ray ? Comparison: CR/VT/SR - XR CHEST 1V - 08/29/23 13:47 EDT ? Findings: ?? Bilateral lower lobe opacities. ?? No pleural effusion or pneumothorax. ?? The cardiac silhouette is enlarged. No CHF. ?? No acute fracture. ? IMPRESSION: ?? Bilateral lower lobe opacities secondary to atelectasis, infiltrates or ?? aspiration. ? This document has been electronically signed by: Marcela Barone, DO on ?? 06/15/2024 11:34:45 ? Dictated By: ?Marcela Barone MD ? Signed By: ?<Electronically signed by Marcela Barone MD in OV> ?06/15/24 1135 ? DD/ 1134 ? TD/TT: 06/15/24 1134 ? Chemical Operations Specialist: ? Procedure Note Nicole Alcazar - 06/15/2024 [place] [address] XRay Report Signed Patient: Mariah Davis#: [id number] : 6Acct:[id number] Age/Sex: 79 / MADM Date: 06/15/24 Loc: HO.ED Attending Dr: Ordering Physician: Shira Robison Date of Service: 06/15/24 Procedure(s): XR chest 1V Accession Number(s): [id number] cc: Clayton Chavez MD; Shira Robison CLINICAL HISTORY: weakness - unwell 1 view chest x-ray Comparison: CR/VT/SR - XR CHEST 1V - 08/29/23 13:47 EDT Findings: Bilateral lower lobe opacities. No pleural effusion or pneumothorax. The cardiac silhouette is enlarged. No CHF. No acute fracture. IMPRESSION: Bilateral lower lobe opacities secondary to atelectasis, infiltrates or aspiration. This document has been electronically signed by: Marcela Barone DO on 06/15/2024 11:34:45 Dictated By: Marcela Barone MD Signed By: <Electronically signed by Marcela Barone MD in OV> 06/15/24 1135 DD/ 1134 TD/TT: 06/15/24 1134 Chemical Operations Specialist: [facility] External Provider IMG XR PROCEDURES Edited Result - Final * SARS-CoV-2 RNA, Influenza A/B, and RSV RNA, Ql NAAT (06/15/2024 11:11 AM EDT) Influenza A PCR NEGATIVE Negative [facility] Influenza B PCR NEGATIVE Negative [facility] Resp Syncy Virus RNA Qual PCR NEGATIVE Negative [facility] SARS COV2 PCR NEGATIVE Negative [facility] Comment:All test results mus t [...] use by authorized laboratories.Testing performed on the [employer] GeneXpert utilizingreal-time RT-PCR.All SARS CoV2 and positive influenza A/B results arereported to [facility]. 06/15/2024 11:1 1 AM EDT 06/15/2024 11:13 AM EDT Generic External Data Provider LAB MICROBIOLOGY - GENERAL ORDERABLES Final Result [facility] [address] [place] [phone] * POCT Glucose (04/30/2024 9:23 AM EST) Glucose Blood, POC 101 60 - 200 mg/dL Comment:Random QC Media Lot # [id number] Lot# Expiration Date Blood Capillary blood specimen / Unknown 04/30/2024 9:23 AM EST us Clayton Millard MD POINT OF CARE TEST EN TER/EDIT ORDERABLES Final Result * (ABNORMAL) POCT HGB A1C (03/07/2024 10:01 AM EST) Hemoglobin A1C 6.6(A) 4.0 - 6.0 % QC Media Lot # [id number] Lot# Expiration Date 330 Blood 03/07/2024 10:0 1 AM EST Clayton Millard MD POINT OF CARE TEST EN TER/EDIT ORDERABLES Final Result * (ABNORMAL) Lipid Panel, Standard (12/14/2023 9:24 AM EDT) Pathologist [facility] Triglycerides 93 <150 mg/dL [facility] Comment:Desirable Triglyceri de: less than 150 mg/dLBorderline High Triglyceride 150-199 mg/dLHigh Triglyceride: 200-499 mg/dLVery High Triglyceride: greater than or equal to 5OO mg/dL Cholesterol 162 <200 mg/dL [facility] Comment:Desirable Cholestero l: less than 200 mg/dLBorderline High Cholesterol: 200-239 mg/dLHigh Cholesterol: greater than 239 mg/dL LDL Cholesterol Calculated 105(H) <100 mg/dL [facility] Comment:Desirable LDL: less than 100 mg/dLNear Optimal/Above Optimal LDL: 110- 129 mg/dLBorderline High LDL: 130-159 mg/dLHigh LDL: 160-189 mg/dLVery High LDL: greater than or equal to 190 mg/dL HDL Cholesterol 39(L) >40 mg/dL [facility] Comment:Desirable HDL: great er than 40 mg/dL Note: This HDL assay may give artificially low results in patients with liver disease. Blood Venous blood specimen / Unknown 12/14/2023 9:24 AM EDT 12/14/2023 11:23 AM EDT Clayton Millard MD LAB BLOOD ORDERABLES Final Result Performing Organization Address [facility] Co de Phone Number [facility] [address] [place] [phone] * Albumin, Random Urine W/Creatinine (12/14/2023 9:20 AM EDT) Creatinine, Urine 167.95 mg/dL [facility] Microalbumin Urine 8.0 mg/L [facility] Microalbum Creatinine Ratio Ur 4.7 <30 ug/mg cr [facility] Comment:Albumin/Creatinine R atio Reference Ranges: Normal: < 30 ug/mg creatinine Microalbuminuria: 30 - 300 ug/mg creatinineClinical Albuminuria: > 300 ug/mg creatinine Urine (Urine, Random) 12/14/2023 9:20 AM EDT 12/14/2023 11:13 AM EDT Clayton Millard MD LAB URINE ORDERABLES Final Result Performing Organization Address [facility] Co de Phone Number [facility] [address] [place] [phone] * Hepatitis C Antibody with Reflex to HCV, RNA, Quantitative, Real-Time PCR (04/04/2022 10:44 AM EST) Hepatitis C Antibody NON-REACT FRANCHESCA NON-REACT FRANCHESCA Keycoopt Index <0.02 <1.00 [facility]ot Comment: HCV antibody was non-reactive. There is no laboratory evidence of HCV infection. In most cases, no further action is required. However, if recent HCV exposure is suspected, a test for HCV RNA (test code 64115) is suggested. For additional information please refer to http://education.[employer]/faq/GRS85f1 (This link is being provided for informational/ educational purposes only.) Blood Venous blood specimen / Unknown 04/04/2022 10:44 AM EST 04/04/2022 10:44 AM EST Narrative [facility] - 04/05/2022 6:45 PM EST FASTING:YES FASTING: YES Clayton Millard MD LAB BLOOD ORDERABLES Final Result [facility] [address] [facility], [facility], [place] [phone] [facility] [address] [facility], ([address]) [place] [phone] from Last 3 Months or Most Recently Relevant to Health Maintenance Insurance [facility] [id number] [place] [id number] Care Teams Textile Conservator Relationship Specialty Start Date End Date Clayton Lyon MD [address] [place] [phone] PCP - General Internal Medicine 11/12/13 [facility] 08/18/21
--- OUTSIDE RECORDS SUMMARY | 2024-06-27 01:59 | XMS_ITS | Encounter Summary ---
Author Organization [employer] Address [address] [place] [address] 7 [place] [address] Care Team Providers Care Cement Grinding Mill Operator Name Role Phone Clayton Lyon MD Primary Care Provide r Reason for Visit * Reason Comments Transition Of Care (Tcm) HDF- scheduled and SDOH screening was completed on 04/16/2024 Encounter Details Date Type Department Care Team ([facility] st Contact Info) Description 06/24/2024 Patient Outreach [facility] [address] [place] [address] Clayton Lyon MD [address] [place] [phone] Transition Of Care (Tcm) (HDF- scheduled and SDOH screening was completed on 04/16/2024) Social History Tobacco Use Types Packs/Day Years [...] as of this encounter Miscellaneous Notes * Significant Event - Claire Xavier - 06/24/2024 11:07 AM EDT 06/24/24 1107 [facility] Hospital Admission Date of Admission/Visit 06/15/24 Date of Discharge 06/19/24 [facility] Diagnosis Cardiomyopathy, Atrial fibrillation with RVR, Pneumonia, Diverticulitis Disposition Discharged Home Follow-Up Actions Follow-Up Needed Provider appointment Follow-Up Outcome Spoke to Patient;Booked Appointment Initial Contact Date 06/24/24 ARMOND Flanagan Returning call to patient for HDF outreach. Patient's name and were confirmed. Patient educated on the importance of follow up with provider following inpatient admission. Patient offered an HDF appt. Patient is agreeable to an appointment and has been scheduled for 07/01/2024 at 10:00am with Audrey Noe. Patient wanted with PCP but did not have anything sooner. Insurance verified sarthak or to scheduling. Patient advised to bring to appointment a photo id and insurance card. Patient also notified that a health center pharmacist will be reaching out to them via telephone prior to their scheduled appointment in order to review their medications in preparation for their appointment. Patient provided with education on contacting the Health Center with any questions or concerns prior to the scheduled appointment. Patient educated on extended clinic hours on Mondays and Wednesdays, and Walk-In Urgent Care Located in [facility]. Patient provided with after-hours line for [facility], , which offer night time triage service and option to transfer to transformation consultant provider if needed. [facility] discharge summary is already scanned into patient's chart. Biggest concern for appointment at this time is no concerns at the moment. Appropriate screenings completed in anticipation of appointment. documented in this encounter Plan of Treatment Upcoming Encounters Date Type Department Care Team (Late st Contact Info) Description 07/01/2024 10:00 AM EDT Office Visit [facility] [address] [facility] [place], [place] [phone] Audrey Noe ANP [address] [place], [place] [phone] 08/13/2024 9:15 AM EDT Office Visit [facility] [address] [facility] [place] [phone] Clayton Lyon MD [address] [place], [place] [phone] documented as of this encounter Visit Diagnoses Not on filedocumented in this encounter Additional Health Concerns Assessment Noted Time PHQ-9 Depression Total Score: 0 12/12/19 24 10:28 AM EDT documented as of this encounter Care Teams Cement Grinding Mill Operator Relationship Specialty Start Date End Date Clayton Lyon MD [facility] [place] [phone] PCP - General Internal Medicine 11/12/13 [facility] 08/18/21 documented as of this encounter
[2024-06-27 02:26] VITALS: BP 151/85; PULSE 86; RESP 16; TEMP 36.6; O2SAT 98
== END 2024-06-27 02:27 | disposition home or self-care (01) ==
PROVIDERS: Emergency Provider Internal Medicine
DX: I10 Essential (primary) hypertension (principal); I48.91 Unspecified atrial fibrillation; Z79.899 Other long term (current) drug therapy; Z79.01 Long term (current) use of anticoagulants; J45.909 Unspecified asthma, uncomplicated; Z87.891 Personal history of nicotine dependence
CPT/HCPCS: 36415; 80053; 85025; 93005; 99283; 99284

== ENCOUNTER → 2024-06-27 00:12 | Outpatient (BNV) | payer OTHER, SELFPAY | PROVIDERS: Emergency Provider Internal Medicine; Visit Provider Internal Medicine | DX: I48.91 Unspecified atrial fibrillation (principal) | CPT/HCPCS: 93010 ==

== ENCOUNTER 2024-07-08 14:35 | Outpatient (REF) | payer OTHER, SELFPAY ==
[2024-07-08 16:22] LABS: Anion Gap 12 (12-20); Blood Urea Nitrogen 10 mg/dL (9-16); Calcium 9.3 mg/dL (8.4-10.2); Carbon Dioxide 27 mmol/L (22-29); Chloride 106 mmol/L (96-108); Estimated Glomerular Filt Rate > 60; Glucose Random 111 mg/dL (60-115); Potassium 4.6 mmol/L (3.3-5.1); Sodium 140 mmol/L (135-145)
[2024-07-08 16:25] LABS: B Type Natriuretic Peptide 357 pg/mL (<100)
--- OUTSIDE RECORDS SUMMARY | 2024-07-08 17:01 | XMS_ITS ---
Author Organization [facility] Address [address] [place] [phone] Care Team Providers Care Deboning Team Leader Name Role Phone Dawson Millard MD, Clayton Primary Care Provide r Reid Monroy Jr, Glenn Unavailable [phone] REASON FOR VISIT bowel prep Encounters Encounter Location Date Provider Diagnosis [facility] [address] [place] [phone] 07/08/2024 Glenn Monroy Jr Plan Of Treatment Next Appt Details Provider Name:Glenn goss Jr, 09/03/2024 08:20:00 AM, [address] [place] [address] , [place], [place], [phone], Progress Notes * ROBB PADRONDOB:1945 ( 79 yo M)Acc No.[id number]:07/08/2024 Patient:?VITO ROBB :1945???Age:79 Y???Sex:Male Address:[address], [place] [address] * * Date:?
--- OUTSIDE RECORDS SUMMARY | 2024-07-08 17:01 | XMS_ITS ---
Author Organization [facility] Address [address] [place] [phone] Care Team Providers Care Red Mud Thickener Operator Name Role Phone Dawson Millard MD, Clayton Primary Care Provide iker Monroy Jr, Glenn Unavailable Medications Medication SIG (Take, Route, Frequency, Duration) Notes Start Date End Date Status Pantoprazole Sodium 40 MG 1 tablet Orall y Twice daily for 30 days 11/24/2023 Active Encounters Encounter Location Date Provider Diagnosis [facility] [address] [place] [phone] 05/30/2024 Glenn Monroy Jr Plan Of Treatment Medication Medication Name Sig Start Date Stop Date Notes Pantoprazole Sodium 40 MG 1 tablet Orall y Twice daily for 30 days 11/24/2023 Next Appt Details Provider Name:Glenn goss Jr, 09/03/2024 08:20:00 AM, [address] [place] [address], [phone], Progress Notes * ROBB PADRONDOB:1945 ( 79 yo M)Acc No.[id number]:05/30/2024 Patient:?ROBB PADRON :1945???Age:79 Y???Sex:Male Address:[address] [place] [address] * Refills? Refill Pantoprazole Sodium Tablet Delayed Release, 40 MG, Orally, 60, 1 tablet, Twice daily, 30 days, Refills=5 * true * Date:? Generated for Santosh dillard/Codie/eTransmitting on:?07/08/2024 05:01 PM EDT
--- OUTSIDE RECORDS SUMMARY | 2024-07-08 17:02 | XMS_ITS ---
Author Organization [facility] Address [address] [place] [address] Care Team Providers Care Bobbin Sorter Name Role Phone Dawson Millard MD, Clayton [...] Active zanac (uncoded) Unknown Allergy Acti ve REASON FOR VISIT Patient presents today for acid reflux Medications Medication SIG (Take, Route, Frequency, Duration) Notes Start Date End Date Status Amitriptyline HCl 10 MG TAKE 1 TABLET BY MOUTH AT BEDTIME Diagnosis Unavailable Oral for 30 Active Meclizine HCl 25 MG 1 tablet as needed Orally Once a day for 30 day(s) Not-Taking traMADol HCl 50 MG as directed Orally Not-Taking metFORMIN HCl ER 500 MG 1 tablet with evening meal Orally Once a day Active Pantoprazole Sodium 40 MG 1 tablet Orally Twice daily for 30 days 11/24/2023 Active Multivitamin Adults - as directed Orally Active Non-Aspirin Pain Relief PRN (tylenol) Active Albuterol Active Apixaban 5 MG as directed Orally Active Nitroglycerin 0.4 MG as directed Sublingual Active Myrbetriq 25 MG 1 tablet Orally Once a day for 30 day(s) Active Ventolin HFA 108 (90 Base) MCG/ACT 1 puff as needed Inhalation every 4 hrs Active Metoprolol Succinate 25 MG 1 capsule Orally Once a day for 30 day(s) Active Cefuroxime Axetil 500 MG 1 tablet Orally every 12 hrs Active Valsartan 40 MG 1 tablet Orally Twice a day Active metroNIDAZOLE 500 MG 1 tablet Orally Three times a day Active Digoxin 125 MCG 1 tablet Orally Active Immunizations Vaccine Route Administration Date Status Comme nts Influenza Unknown 07/08/2024 Refused Problems Problem Type SNOMED Code ICD Code Onset Dates Problem Status W/U Status Risk Notes Problem 455259322 Diverticulitis (K57.92) Active confirmed Problem 814612976 spectacle truer (curre nt) use of anticoagulants (Z79.01) Active confirmed Vital Signs Temperature 97.5 degrees Fahrenheit 07/09/19 25 Blood pressure systolic 001 mm Hg 07/09/19 25 Blood pressure diastolic 01 mm Hg 025 Height 67 in 07/08/2024 Weight 160 lbs 07/08/2024 BMI 25.06 kg/m2 07/08/2024 Encounters Encounter Location Date Provider Diagnosis [facility] [address] [place] [address] 07/08/2024 Glenn Monroy Jr Diverticulitis K57.92 and jail (current) use of anticoagulants Z79.01 Assessments Encounter Date Diagnosis (ICD Code) Assessment Notes Treatment Notes Treatment Clinical Notes Section Notes 07/08/2024 Diverticulitis (ICD-10 - K57.92) Diverticulosis material was printed We discussed diverticulitis today. We discussed a high-fiber diet. We recommended follow-up with colonoscopy. This will be arranged at his convenience. He is advised to stop Eliquis 3 days before the procedure. 07/08/2024 jail (current) use of anticoagulants (ICD-10 - Z79.01) We discussed diverticulitis today. We discussed a high-fiber diet. We recommended follow-up with colonoscopy. This will be arranged at his convenience. He is advised to stop Eliquis 3 days before the procedure. Plan Of Treatment Treatment Notes Assessment Notes Diverticulitis Diverticulosis mater ial was printed Future Test Test Name Order Date COLONOSCOPY 07/08/2024 Next Appt Details Follow Up: 1 Year, Reason: Provider Name:Glenn goss Jr, 09/03/2024 08:20:00 AM, [address] [place] [address] , [place], [place], [id number], Progress Notes * WENDY PADRON:1945 ( 79 yo M)Acc No.[id number]:07/08/2024 Progress Notes Patient:ROBB QUINTANILLA Provider:?lGenn Monroy MD :1945???Age:79 Y???Sex:Male Booker e:07/08/2024 Address:[address] [place] [address] [facility] Pcp:Clayton valdovinos MD Subjective: * Chief Complaints: * ???1. Patient presents today for acid reflux. * HPI: ???New symptom(s):? Mr. Padron is seen today in follow-up. He was hospitalized in May with uncomplicated diverticulitis. He was treated with antibiotics with improvement. He also had atrial fibrillation with rapid ventricular response, treated with metoprolol and as well on Eliquis. He is not taking aspirin. He has no complaints of abdominal pain currently he completed his outpatient antibiotics and is doing well. Last colonoscopy was in 2020 with removal of 2 small tubular adenomas. We reviewed this today. * Medical History:?EGD 11/20/20 , no Handley's esophagus or H. 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 * Surgical History:?appendecto my , Cystoscopy , Excision of lump on neck , Skin biopsies , hemorrhoidectomy , ankle surgery 01/15/2018. * Hospitalization/Major Diagno stic Procedure:?05/2024 diverticulitis . * Family History:?Father: dece ased, prostate cancer.?Mother: , diagnosed with Diabetes, HTN (hypertension).? Father had prostate cancer. No family history of colon cancer or liver cancer. * Social History:?Tobacco Use:?Tobacco Use/Smoking?Are you a: nonsmoker.?Drugs/Alcohol:?Alcohol Screen?Points: 0, Interpretation: Negative.?Miscellaneous:?Marital status: . Occupation: Retired. * Medications:?Taking Valsarta n 40 MG Tablet 1 tablet Orally Twice a day , Taking metroNIDAZOLE 500 MG Tablet 1 tablet Orally Three times a day , Taking Digoxin 125 MCG Tablet 1 tablet Orally , Taking Cefuroxime Axetil 500 MG Tablet 1 tablet Orally every 12 hrs , Taking Apixaban 5 MG Tablet as directed Orally , Taking Metoprolol Succinate 25 MG Capsule ER 24 Hour Sprinkle 1 capsule Orally Once a day , Taking Nitroglycerin 0.4 MG Tablet Sublingual as directed Sublingual , Taking Myrbetriq 25 MG Tablet Extended Release 24 Hour 1 tablet Orally Once a day , Taking Ventolin HFA 108 (90 Base) MCG/ACT Aerosol Solution 1 puff as needed Inhalation every 4 hrs , Taking Albuterol , Taking Multivitamin Adults - Tablet as directed Orally , Taking Non-Aspirin Pain Relief , Notes to Pharmacist: PRN (tylenol), Taking Amitriptyline HCl 10 MG Tablet TAKE 1 TABLET BY MOUTH AT BEDTIME Diagnosis Unavailable Oral , Taking metFORMIN HCl ER 500 MG Tablet Extended Release 24 Hour 1 tablet with evening meal Orally Once a day , Taking Pantoprazole Sodium 40 MG Tablet Delayed Release 1 tablet Orally Twice daily , Not-Taking/PRN Meclizine HCl 25 MG Tablet Chewable 1 tablet as needed Orally Once a day , Not-Taking/PRN traMADol HCl 50 MG Tablet Soluble as directed Orally , Discontinued Aspir-81 81 MG Tablet Delayed Release 1 tablet Orally Once a day , Discontinued Atorvastatin Calcium 80 MG Tablet 1 tablet Orally Once a day , Notes to Pharmacist: Put a hold on medication * Allergies:?Oxycodone, zanac, Percocet, Lisinopril, Gabapentin. Objective: * Vitals:?Wt:160lbs, Ht: 67 in , BMI:25.06Index, BP:001/01mm Hg, Temp:97.5, Wt-k.58. * Examination: ???General Examination: ???On examination today, he appears well. Skin is anicteric. Lungs are clear. Heart shows a regular rate and rhythm. Abdomen is soft without focal masses or tenderness. Extremities are without edema. Assessment: * Assessment: 1.?Diverticulitis - K57.92 ( Primary)???2.?jail (current) use of anticoagulants - Z79.01??? We discussed diverticulitis today. We discussed a high-fiber diet. We recommended follow-up with colonoscopy. This will be arranged at his convenience. He is advised to stop Eliquis 3 days before the procedure. Plan: * Treatment: Notes: Diverticulosis material was printed?? * Immunizations:? Influenza (Not administered - Refused: Patient decision) * Procedure Codes:?G9902 Pt sc rn tbco and id as user, G9744 PATIENT NOT ELIG D/T ACTIVE DX HTN * Preventive Medicine:? ??Counseling:?Care goal follow-up plan:?Above Normal BMI Follow-up?Dietary management education, guidance, and counseling,?BMI management provided?Yes.? ??Screenings:?Fall Risk Screening?Fall Risk Assessment:?One fall with injury in the past year,?Screening:?One fall with injury in the past year,?Assessment:?Not performed, no reason specified,?Plan of Care:?Documented,?Type of fall plan of care:?Balance, strength and gait training or instruction provided.? * Follow Up:?1 Year * * Sign off status: Completed true * Provider:?Glenn Monroy MD Date:?0 07/08/2024 Generated for Santosh dillard/Codie/eTransmitting on:?07/08/2024 05:01 PM EDT History and Physical Notes * HPI (History of Present Illness) Category Sub-Category Detail Notes Category Not es New symptom(s) Mr. Padron is seen today in follow-up. He was hospitalized in May with uncomplicated diverticulitis. He was treated with antibiotics with improvement. He also had atrial fibrillation with rapid ventricular response, treated with metoprolol and as well on Eliquis. He is not taking aspirin. He has no complaints of abdominal pain currently he completed his outpatient antibiotics and is doing well. Last colonoscopy was in 2020 with removal of 2 small tubular adenomas. We reviewed this today. Examination Category Sub-Category Detail Notes Category Not es General Examination On exami nation today, he appears well. Skin is anicteric. Lungs are clear. Heart shows a regular rate and rhythm. Abdomen is soft without focal masses or tenderness. Extremities are without edema.
--- OUTSIDE RECORDS SUMMARY | 2024-07-08 17:02 | XMS_ITS | Encounter Summary ---
Author Organization [employer] Address [address] [place] [address] Care Team Providers Care Integration Analyst Name Role Phone Clayton Lyon MD Primary Care Provide r Encounter Details Date Type Department Care Team ([facility] st Contact Info) Description 07/08/2024 Telephone [facility] [address] [place], [place] [phone] Clayton Lyon MD [address] [place], [place] [phone] Social History Tobacco Use Types Packs/Day Years [...] encounter Miscellaneous Notes * Telephone Encounter - Nakia Carnes - 07/08/2024 2:38 PM EDT Pt walked in requesting dme for bed rails documented in this encounter Plan of Treatment Upcoming Encounters Date Type Department Care Team (Late st Contact Info) Description 08/13/2024 9:15 AM EDT Office Visit [facility] [address] [place] [address] Clayton Lyon MD [address] [place] [address] documented as of this encounter Visit Diagnoses Not on filedocumented in this encounter Additional Health Concerns Assessment Noted Time PHQ-9 Depression Total Score: 0 12/12/19 24 10:28 AM EDT documented as of this encounter Care Teams Integration Analyst Relationship Specialty Start Date End Date Clayton Lyon MD [address] [place] [address] PCP - General Internal Medicine 11/12/13 [facility] 08/18/21 documented as of this encounter
--- OUTSIDE RECORDS SUMMARY | 2024-07-08 17:02 | XMS_ITS | Patient Health Record ---
Author Organization [facility] Address [address] [place] [address] Care Team Providers Care Smoke Chaser Name Role Phone Dawson Millard MD, Clayton Primary Care Provide Glenn Mary Jr Unavailable [phone] 1 Allergies Allergen (clinical drug ingredient) Drug/Non Drug [...] Blood Reviewed date:09/22/2023 03:04:56 PM Interpretation: Performing Lab:[facility], [address] [place] [phone] Notes/Report: Glucose, Whole Blood 106 60-115 mg/dL METER # : [id number] Pathology Reviewed date:10/05/2023 11:07:51 AM Interpretation: Performing Lab:[facility], [address] [place] [phone] Notes/Report: ------ Name: Robb Padron e/Sex: 78/M : 1945 Unit#: [id number] Attend Dr: Glenn Monroy MD Re09/22/23 Status : [facility] Location: [facility] Disch: ------ SPEC : [id number] RECD : 09/22/23 STATUS: VINOD BUSH NUM: [id number] GLORIA: 09/22/[address] [facility] [address]: Glenn Monroy MD ENTERED: 09/22/23 [...] Robb Padron e/Sex: 78/M : 1945 Unit#: [id number] Attend Dr: Glenn Monroy MD Re09/22/23 Status : [facility] Location: [facility] Disch: ------ SPEC : [id number] RECD : 09/22/23 STATUS: [facility]USH NUM: [id number] GLORIA: 09/22/[address] [facility] [address]: Glenn Monroy MD ENTERED: 09/22/23 SP TYPE: Surgical OTHR DR: Clayton Chavez MD ORDERED: HE Stain/6, Gross Micro L4/3, IHC, Special st. 2/3, H. pylori, AB/PAS/3 Copies To: Glenn Monroy MD [facility] [address] [place] [address] Vangie Chavez MD [address] [address] ------ Signed (signature on file) [place] 09/25/23 1719 ------ END OF REPORT Reason For Referral No Information Medications Medication SIG (Take, Route, Frequency, Duration) Notes Start Date End Date Status Nitroglycerin 0.4 MG as directed Sublingual Active Meclizine HCl 25 MG 1 tablet as needed Orally Once a day for 30 day(s) Not-Taking Myrbetriq 25 MG 1 tablet Orally Once a day for 30 day(s) Active traMADol HCl 50 MG as directed Orally Not-Taking Ventolin HFA 108 (90 Base) MCG/ACT 1 puff as needed Inhalation every 4 hrs Active Albuterol Active metFORMIN HCl ER 500 MG 1 tablet with evening meal Orally Once a day Active Metoprolol Succinate 25 MG 1 capsule Orally Once a day for 30 day(s) Active Pantoprazole Sodium 40 MG 1 tablet Orally Twice daily for 30 days 11/24/2023 Active Cefuroxime Axetil 500 MG 1 tablet Orally every 12 hrs Active Amitriptyline HCl 10 MG TAKE 1 TABLET BY MOUTH AT BEDTIME Diagnosis Unavailable Oral for 30 Active Apixaban 5 MG as directed Orally Active Valsartan 40 MG 1 tablet Orally Twice a day Active metroNIDAZOLE 500 MG 1 tablet Orally Three times a day Active Multivitamin Adults - as directed Orally Active Digoxin 125 MCG 1 tablet Orally Active Non-Aspirin Pain Relief PRN (tylenol) Active Immunizations Vaccine Route Administration Date Status Comme nts Influenza Unknown 12/25/2017 Administered Influenza Unknown 12/26/2018 Administered Influenza Unknown 01/15/2020 Administered Influenza Unknown 11/25/2020 Administered Influenza Unknown 01/17/2023 Administered Influenza Unknown 04/13/2022 Refused Influenza Unknown 07/08/2024 Refused Problems Problem Type SNOMED Code ICD Code Onset Dates Problem Status W/U Status Risk Notes Problem 917653185 Colon cancer screening (Z12.11) Active confirmed Problem 36849997 Epigastric pain (R10.13) Active confirmed Problem Gastro-esophage al reflux disease without esophagitis (394208100) Gastro-esophageal reflux disease without esophagitis (K21.9) Active confirmed Problem 423640718 group home (curre nt) use of anticoagulants (Z79.01) Active confirmed Problem 832858937 Personal history of colonic polyps (Z86.010) Active confirmed Problem 707778916 Irritable bowel syndrome with diarrhea (K58.0) Active confirmed Problem 893112286 Generalized abdominal pain (R10.84) Active confirmed Problem 919289324 Diverticulitis (K57.92) Active confirmed Problem 255908774 Gastroesophageal reflux disease without esophagitis (K21.9) Active confirmed Problem History of polyp of colon (326923470) History of colon polyps (Z86.010) Active confirmed Problem 011865499 Gastroesophageal reflux disease with esophagitis without hemorrhage (K21.00) Active confirmed Vital Signs Temperature 97.5 degrees Fahrenheit 07/08/2024 Blood pressure diastolic 01 mm Hg 07/08/2024 Height 67 in 07/08/2024 Blood pressure systolic 001 mm Hg 07/08/2024 Weight 160 lbs 07/08/2024 BMI 25.06 kg/m2 07/08/2024 Encounters Encounter Location Date Provider Diagnosis [facility] [address] [place] [phone] 09/22/2023 Glenn Monroy Jr Gastro-esophageal reflux disease without esophagitis K21.9 [facility] [address] [place] [phone] 08/14/2023 Glenn Monroy Jr Gastroesophageal reflux disease without esophagitis K21.9 and Irritable bowel syndrome with diarrhea K58.0 [facility] [address] [place] [phone] 07/08/2024 Glenn Monroy Jr Diverticulitis K57.92 and group home (current) use of anticoagulants Z79.01 [facility] [address] [place] [address] 07/08/2024 Glenn Monroy Jr [facility] [address] [place] [address] 09/18/2023 Glenn Monroy Jr [facility] [address] [place] [address] 09/20/2023 Glenn Monroy Jr [facility] [address] [place] [address] 10/05/2023 Glenn Monroy Jr [facility] [address] [place] [address] 11/24/2023 Glenn Monroy Jr Gastroesophageal reflux disease without esophagitis K21.9 [facility] [address] [facility] [place] [address] 11/28/2023 Glenn Monroy Jr [facility] [address] [place] [facility] [place] [address] 05/30/2024 Glenn Monroy Jr Assessments Encounter Date Diagnosis (ICD Code) Assessment Notes Treatment Notes Treatment Clinical Notes Section Notes 09/22/2023 Gastro-esophageal reflux disease without esophagitis (ICD-10 - K21.9) 08/14/2023 Irritable bowel syndrome with diarrhea (ICD-10 - K58.0) Reflux symptoms are out of control. He is advised to stop pantoprazole, he will begin lansoprazole. Reflux was discussed in detail including diet and lifestyle modifications. Upper endoscopy will be scheduled. He is aware of risks and benefits and agrees to proceed. Diarrheal symptoms and IBS are under good control and he will continue dicyclomine. 08/14/2023 Gastroesophageal reflux disease without esophagitis (ICD-10 - K21.9) Endoscopy material was printed Reflux symptoms are out of control. He is advised to stop pantoprazole, he will begin lansoprazole. Reflux was discussed in detail including diet and lifestyle modifications. Upper endoscopy will be scheduled. He is aware of risks and benefits and agrees to proceed. Diarrheal symptoms and IBS are under good control and he will continue dicyclomine. 07/08/2024 group home (current) use of anticoagulants (ICD-10 - Z79.01) We discussed diverticulitis today. We discussed a high-fiber diet. We recommended follow-up with colonoscopy. This will be arranged at his convenience. He is advised to stop Eliquis 3 days before the procedure. 07/08/2024 Diverticulitis (ICD-10 - K57.92) Diverticulosis material was printed We discussed diverticulitis today. We discussed a high-fiber diet. We recommended follow-up with colonoscopy. This will be arranged at his convenience. He is advised to stop Eliquis 3 days before the procedure. 11/24/2023 Gastroesophageal reflux disease without esophagitis (ICD-10 - K21.9) Plan Of Treatment Pending Test Test Name Order Date XR GI SERIES 01/03/2019 Future Test Test Name Order Date UPPER GI ENDOSCOPY 10/29/2014 UPPER GI ENDOSCOPY 01/13/2016 COLONOSCOPY 01/13/2016 UPPER GI ENDOSCOPY 10/29/2020 COLONOSCOPY 10/29/2020 UPPER GI ENDOSCOPY 08/14/2023 COLONOSCOPY 07/08/2024 Next Appt Details Provider Name:Glenn goss , 09/03/2024 08:20:00 AM, [address] [place] [address] , [place], [place], [phone], Insurance Providers Payer Name Payer Address Payer Phone Subscriber Number Group Number Insured Name Patient Relationship to Insured Coverage Start Date Coverage End Date [facility] [address] Attn Claims CIPRIANO Julio [id number] ROBB PADRON Self - patient is the insured Medical (General) History Medical History History ICD Code EGD 11/20/20, no Handley's esophagus or H . pylori. 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
--- OUTSIDE RECORDS SUMMARY | 2024-07-08 17:02 | XMS_ITS | Clinical Summary ---
Author Organization [facility] [facility] it[facility] Address [address] [place] [address] Care Team Providers Care Customs Compliance Specialist Name Role Phone Clayton Chavez MD Primary [...] Influencers of Health Screening 03/06/2022 COVID-19 Vaccine ( - 2023-2 5 season) 2023 Influenza Vaccine (Season Ended) 2024 01/22/2020, 01/08/2019 HIB Vaccines Aged Out No longer [...] age to complete this topic Meningococcal B Vaccine Aged Out No l onger eligible based on patient's age to complete this topic RSV Immunization Patients Under 20 months Aged Out No longer eligible b ased on patient's age to complete this topic Varicella Vaccines Aged Out No longer eligible based on patient's age to complete this topic Care Teams Customs Compliance Specialist Relationship Specialty Start Date End Date Clayton Chavez MD [address] [place] [address] [facility] [address] PCP - General Internal Medicine 06/26/14
--- OUTSIDE RECORDS SUMMARY | 2024-07-08 17:02 | XMS_ITS | Encounter Summary ---
Author Organization [employer] [facility] Address [address] [place] [address] [address] [facility] [place] [address] Care Team Providers Care Cream Ripener Name Role Phone Clayton Lyon MD Primary Care Provide r Encounter Details Date Type Department Care Team (Late Contact Info) Description 03/07/2022 [facility] Only [place] [facility] [address] [place], [place] [phone] Clayton Lyon MD [address] [place], [place] [phone] Social History Tobacco Use Types Packs/Day Years [...] Department Care Team (Late Contact Info) Description 08/13/2024 9:15 AM EDT Office Visit [facility] [address] [place] [address] [phone] Clayton Lyon MD [address] [place], [place] [phone] documented as of this encounter Procedures Procedure Name Priority Date/Time Associated Diagnosis Comments PSA, TOTAL Routine 12/05/2022 11:19 AM EDT STREP A NUCLEIC ACID Routine 05/30/2022 11:58 AM EST SARS COV2/INFLUENZA A/B AND RSV RNA QL NAAT Routine 05/30/2022 11:58 AM EST documented in this encounter Results * PSA,Total (12/05/2022 11:19 AM EDT) Prostate Specific Antigen 0.50 <0.05 - 4.0 ng/mL [facility] Comment:PSA methodology: Abb yong Alinity i ChemiluminescentMicroparticle Immunoassay (CMIA) 12/05/2022 11:1 9 AM EDT 12/05/2022 11:19 AM EDT [facility] External Provider LAB BLO OD ORDERABLES Final Result [facility] [address] [place] [phone] * SARS-CoV-2 RNA, Influenza A/B, and RSV RNA, Ql NAAT (05/30/2022 11:58 AM EST) Influenza A PCR NEGATIVE Negative [facility] Influenza B PCR NEGATIVE Negative [facility] Resp Syncy Virus RNA Qual PCR NEGATIVE Negative [facility] SARS COV2 PCR NEGATIVE Negative [facility] SARS/Flu/RSV Note See Note [facility] Comment:All test results mus t [...] use by authorized laboratories.Testing performed on the [employer] GeneXpert utilizingreal-time RT-PCR.All SARS CoV2 and positive influenza A/B results arereported to [facility]. 05/30/2022 11:5 8 AM EST 05/30/2022 12:03 PM EST [facility] Exter nal Provider LAB MICROBIOLOGY - GENERAL ORDERABLES Final Result Performing Organization Address [facility] Co de Phone Number [facility] [address] [place] [address] [phone] * Strep A Nucleic Acid (05/30/2022 11:58 AM EST) [employer]NOW SERIAL# [id number] [facility] Strep A Nucleic Acid Negative Negative [facility] Comment:All test results mus t be correlated with clinical findings.This test has not been evaluated for monitoring treatment ofinfection.Additional follow-up testing using the culture method isrequired if the result is negative and clinical symptomspersist, or in the event of an acute rheumatic feveroutbreak. 05/30/2022 11:5 8 AM EST 05/30/2022 12:03 PM EST [facility] Exter nal Provider LAB MICROBIOLOGY - GENERAL ORDERABLES Final Result Performing Organization Address [facility] Co de Phone Number [facility] [address] [place] [phone] documented in this encounter Visit Diagnoses Not on filedocumented in this encounter Care Teams Cream Ripener Relationship Specialty Start Date End Date Clayton Lyon MD [address] [place] [phone] PCP - General Internal Medicine 11/12/[address] [facility] 08/18/21 documented as of this encounter
--- OUTSIDE RECORDS SUMMARY | 2024-07-08 17:02 | XMS_ITS | Encounter Summary ---
Author Organization [employer] Address [address] [facility] 7t [place] [address] Care Team Providers Care Outside Solar Sales Consultant Name Role Phone Clayton Lyon MD Primary Care Provide r Reason for Visit * Reason Onset Date Comments ER Follow-up 08/31/2023 Encounter Details Date Type Department Care Team ([facility] st Contact Info) Description 08/31/2023 Telephone [facility] [address] [place], [place] [phone] Clayton Lyon MD [address] [place], [place] [phone] ER Follow-up Social History Tobacco Use Types [...] ED visit on : Date: 09/18/23 Hospital: [facility] Se[facility] for: fall Patient advised will forward to team nurse for follow up documented in this encounter Plan of Treatment Upcoming Encounters Date Type Department Care Team (Late st Contact Info) Description 08/13/2024 9:15 AM EDT Office Visit [facility] [address] [place] [phone] Clayton Lyon MD [address] [place] [address] documented as of this encounter Visit Diagnoses Not on filedocumented in this encounter Care Teams Outside Solar Sales Consultant Relationship Specialty Start Date End Date Clayton Lyon MD [address] [place] [address] PCP - General Internal Medicine 11/12/13 [facility] 08/18/21 documented as of this encounter
--- OUTSIDE RECORDS SUMMARY | 2024-07-08 17:02 | XMS_ITS | Encounter Summary ---
Author Organization [employer] [facility] Address [address] [place] [address] 7t [place] [address] Care Team Providers Care Cafeteria Attendant Name Role Phone Clayton Lyon MD Primary Care Provide r Encounter Details Date Type Department Care Team (Latest Contact Info) Description 10/16/2020 Abstract [facility] Dental, Provider, DDS Social History Tobacco [...] Description 08/13/2024 9:15 AM EDT Office Visit [facility] [address] [place] [address] Clayton Lyon MD [address] [place] [address] documented as of this encounter Visit Diagnoses Not on filedocumented in this encounter Care Teams Cafeteria Attendant Relationship Specialty Start Date End Date Clayton Lyon MD [address] [place] [address] PCP - General Internal Medicine 11/12/13 [facility] 08/18/21 documented as of this encounter
--- OUTSIDE RECORDS SUMMARY | 2024-07-08 17:02 | XMS_ITS | Data Portability ---
Author Organization [employer] Address [address] [place] [phone] Care Team Providers Care Manager Case Name Role Phone HIM [facility] OTHER Assessment [...] been taking tylenol and occasional oxycodone. VSS. Television Writer on site reports bruising over the shoulder, [...] Name and Address Organization Details Recorded Time 98707 lisinopri l medicatio n Not available Not available Not available 06/12/2024 23427 RxNorm Not Available [employer] production 13:30:19 59929 gabapenti n medicatio n Not available Not available Not available 06/12/2024 02211 RxNorm Not Available [employer] [facility] [employer] 5 13:30:19 86997 Xanax medicatio n Not available Not available Not available 06/12/202493036 3 RxNorm Harriett Cortez MD [address] [place] [address],[address], [place], [phone], [employer] 5 14:56:19 47736 oxycodone medicatio n Not available Not available Not available 06/12/2024 7804 RxNorm Harriett Cortez MD [address] [place] [address],[address], [place], [phone], [employer] 5 14:56:24 77734 acetamino phen / oxycodone medicatio n Not available Not available Not available 06/12/2024 65516 3 RxNorm Not Available [employer] - production 15:37:05 Medications Name Sig Start [...] /min 132 mm[Hg] 80 mm[Hg] Not Available [employer] 4 12:49:57 Date Recorded Respiratory rate Oxygen saturation Oxygen saturation in Arterial blood by Pulse oximetry Heart rate Body temperature Systolic blood pressure Diastolic blood pressure Provider Name and Address Organization Details Last Updated DateTime 5 18 /min 96 % 96 % 63 /min 98.6 [degF] 145 mm[Hg] 96 mm[Hg] Not Available [employer] 5 14:47:09 Social History None recorded. Functional Status None recorded. Mental Status None recorded. Family History Nothing Reported. Medical History No medical history recorded. Past Encounters Encounter ID Performer Location Encounter Start Date Encounter Closed Date Diagnosis/Indication Diagnosis SNOMED-CT Code Diagnosis ICD10 Code Diagnosis Note [id number] Destiny Patel MD Main - [facility] [address] [place] [phone] 09/01/2023 12:46:34 11/21/2023 14:15:14 Muscle pain 08899485 M79.10 [id number] [facility] [address] [place] [phone] 06/12/2024 14:44:38 06/12/2024 22:02:59 Hypertensive disorder [id number] I10 Evaluation in the field was performed by my java web architect colleague, as noted above, I provided real-time direction and supervisio n for this visit.This is a 79yo M with PMHx HTN seen at [facility] ED 05/25 for headache, dizziness, and [...] Leblanc Member ID Guarantor Name 09/01/2023 1 [facility] - DOS ON OR AFTER 2022 - DUAL ELIGIBLE - RESIDENTIAL OPTIONS AND ONE CARE (MEDICARE REPLACEMENT/ADV ANTAGE - HMO) Shelton Davis [id number] Shelton Davis 06/12/2024 1 [facility] - DOS ON OR AFTER 2022 - DUAL ELIGIBLE - RESIDENTIAL OPTIONS AND ONE CARE (MEDICARE REPLACEMENT/ADV ANTAGE - HMO) Shelton Davis [id number] Shelton Davis Notes Date Note Type Note Provider Name and Address Organization Details Recorded Time 09/01/2023 text/html HPI: ROSSY is a very pleasant 78 Portuguese speaking y/o male with a PMH of, [...] open wounds. ROSSY presented [place] [facility] [place] the [facility] of the fall for [...] must go slowly due to the pain.? MARCYR [...] 911 for any new or worsening symptoms. MARCYR understands and will do so. ROSSY can be reached at [phone]. .................. .................. .................. .................. .................. .................. .................. ............... [facility] Nurse Triage Notes (Rosy Corona): Comments: [facility] RN did not require any additional information to process this visit. .................. .................. .................. .................. .................. .................. .................. ............... Television Writer Note From Hitesh Araiza: Dispatched to the [...] ............... Disposition: [place] Destiny Patel MD [address] [facility], [place], [phone], [employer] 11/20/2023 19:41:13 06/12/2024 text/html [facility] Nurse Triage Notes (Laine Horowitz): Reason For Request: Patient has blood pressure problems, headache, weak. Denies: History of Heart Attack, in the setting of active chest pain Active Chest pain, radiates to neck jaw and or arm Diaphoretic/Sweati ng Describes as ? crushing? Sudden onset of nausea/Vomiting and shortness of breath. Shortness of Breath Unable to speak in full sentences without distress Chief Complaints: High Blood Pressure, Nausea / Vomiting, Weakness, Headache PMH: Hypertension, Stroke PMH Reviewed at 06/12/2024: Allergies Reviewed at 06/12/2024:30 Comments: Patient reporting high blood pressur. c/o headache, weakness, shortness of breath and N/V since 05/25. Only reporting nausea at this time. Went to ER at [facility] on 05/25. Currently taking Metoprolol daily. Wallpaper Printer instructed patient to increase dose to 2 tablets daily. Denies chest pain. Education provided on the response time and the member was advised to monitor reported s/s and seek emergency treatment if needed. .................. .................. .................. .................. .................. .................. .................. ............... Television Writer Note From Nadine Bennett: Sent to a call for a pt complaining of hypertension. SC8 arrives on scene, pt is alert and oriented, airway is patent. Pt complains of hypertension along with the following intermittent symptoms since 05/25: headache, feeling off balance, sob, and nausea. Pt denies cp, vomiting, diarrhea, abd pain, fever, or loc. Pt states he was evaluated at [facility] ED on 05/25 and by [employer] on 06/07. Pt states his Metoprolol dosage was increased from 25mg to 50mg PO. (sitting) BP:145/96, P:63, RR:18, SpO2:96% RA, T:98.6; (standing) BP:147/101, P:63; Head: unremarkable; Lung sounds: clear bilaterally; Abdomen: soft, non-tender, no distention; Back: unremarkable; Extremities: unremarkable; Skin: pink, warm, dry; Pt requests transport to [facility] ED for re-evaluation. [facility] [place] [place] contacted and advised of pt's wishes. 911 called; [facility] .................. .................. .................. .................. .................. .................. .................. ............... [facility] [place] [place] Consulted: Harriett Cortez .................. .................. .................. .................. .................. .................. .................. ............... Disposition: Fulfilled Harriett Cortez MD [address] [facility], [place], [address], [facility]KEL [facility] 06/12/2024 15:48:07
--- OUTSIDE RECORDS SUMMARY | 2024-07-08 17:02 | XMS_ITS | Encounter Summary ---
Author Organization [employer] Address [address] [facility] 7 [place] [address] Care Team Providers Care Development Representative Name Role Phone Clayton Lyon MD Primary Care Provide r Reason for Visit * Reason Onset Date Comments Hospital Follow-up 06/20/2024 Encounter Details Date Type Department Care Team ([facility] Contact Info) Description 06/20/2024 Telephone [facility] [address] [place], [place] [phone] Clayton Lyon MD [address] [place], [place] [phone] Hospital Follow-up Social History Tobacco Use Types [...] EDT Tc from pt returning phone call. [phone] * Telephone Encounter - Jade Zaidi - 06/20/2024 9:42 AM EDT Tc from pt requesting a HDF appt. Hospital: [facility] [place] Date of admission: 06/15/2024 Discharge date: 06/19/2024 Diagnosed: Cardiomyopathy heart working 20 % severe heart failure Atrial fibrillation with RVR Pneumonia Diverticulitis *Send message to [place] Clinical Care Coordinators documented in this encounter Plan of Treatment Upcoming Encounters Date Type Department Care Team (Late st Contact Info) Description 08/13/2024 9:15 AM EDT Office Visit [facility] [address] [place] [address] Clayton Lyon MD [address] [place] [address] documented as of this encounter Visit Diagnoses Not on filedocumented in this encounter Additional Health Concerns Assessment Noted Time PHQ-9 Depression Total Score: 0 12/12/19 24 10:28 AM EDT documented as of this encounter Care Teams Development Representative Relationship Specialty Start Date End Date Clayton Lyon MD [address] [place] [address] PCP - General Internal Medicine 11/12/13 [facility] 08/18/21 documented as of this encounter
--- OUTSIDE RECORDS SUMMARY | 2024-07-08 17:02 | XMS_ITS | Clinical Summary ---
Author Organization [employer] Address [address] [place] [address] 7[address] [place] [address] Care Team Providers Care Computer Numeric Control Setter Name Role Phone Clayton Lyon MD Primary [...] 12/17/19 Active Blood Glucose Monitoring Suppl (FreeStyle Narka Lite) w/Device kit USE FOR TEST BLOOD [...] Active Problems Problem Noted Date Diagnosed Date Atrial fibrillation 07/01/2024 Diverticulosis 04/30/2024 Assessment & Plan (04/30/2024 9:22 AM EST): Pt seen in the Er 03/11/[address]/CT abdomen pelvis w IV con 1. No acute posttraumatic abnormalities. 2. Mild acute diverticulitis without complication at the junction of the descending and sigmoid colon left lower quadrant. 3. Additional ancillary findings as discussed in the body of the report. Electronically signed by: Peter Briggs MD 03/11/2024 Rx with abx Last [...] (11/01/2022 10:24 AM EDT): Pt seen by Unit Aide Dr Garcia He reviewed his laboratory results That included: CRP, RF, ESR and DAVIE were all Normal His assessment was that patient had fibromyalgia Right hand pain 11/01/2022 Assessment & Plan (02/14/2023 10:24 AM EST): Patient with painful right index finger, difficulty bending it. Seen at [facility] received steroid injections with good results 11/24/2022 Assessment & Plan (11/01/2022 10:25 AM EDT): Patient with painful right index finger, difficulty bending it. Seen in the past at [facility] received steroid injections with good results Pt would like to go back Grade II hemorrhoids 11/01/2022 Assessment & Plan (02/14/2023 10:24 AM EST): Evaluated by Dr Carney 10/2022 opted for conservative measures Assessment & Plan (11/01/2022 10:32 AM EDT): Patient with c/o BRBPR Exam indicative of hemorrhoids Plan: Increase fluid, fiber in diet Proctosl H Referral to Dr Carney [facility] health care 08/02/2022 Assessment & Plan (03/07/2024 [...] EST): Pt seen in the ER at [facility] yesterday with cough, diagnosed with bronchitis. Treated [...] shoulder pain. Seen in the past at [facility], last seen 02/27/2019 received a steroid [...] Clinical correlation recommended. Pt was seen by [facility] 08/2018 who thought this was due to [...] coronary artery calcification. Type 2 diabetes mellitus with hyperlipidemia (CM S/HCC) 03/28/2022 Assessment & Plan (04/30/2024 9:35 AM EST): [...] of his LS spine done showed: 1. Ohxv-jn-qfquekey loss of disc height at L4-L5 with a right paracentral disc extrusion resulting in mass effect upon the right L5 nerve root. Mild central canal stenosis. Broad-based left lateral disc protrusion and endplate spurring abutting the exiting left L4 nerve root. Djck-zk-qknvhpyc bilateral foraminal narrowing. 2. Mild spondylitic changes [...] Encounters Date Type Department Care Team Description 07/08/2024 Telephone [facility] [place] [address] Clayton Lyon MD 07/01/2024 10:00 AM EDT Office Visit [facility] [place] [address] Audrey Noe, ANP Atrial fibrillation, unspecified type (CMS/HCC) (Primary Dx); 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) (CMS/HCC); Hospital discharge follow-up; Pneumonia of both lungs due to infectious organism, unspecified part of lung; Diverticulosis; Cardiomyopathy, unspecified type (CMS/HCC); Decreased cardiac ejection fraction 07/01/[address] Bhatnagar F/U 07/01/2024 Travel 06/24/2024 Patient Outreach [address] [address] Clayton Lyon MD Transition Of Care (Tcm) (HDF- scheduled and SDOH screening was completed on 04/16/2024) 06/20/2024 Patient Outreach [address] [address] Clayton Lyon MD Transition Of Care (Tcm) (HDF unscheduled) 06/20/[address] [address] Clayton Lyon MD Hospital Follow-up 06/15/2024 Orders Only [facility] External Provider, [facility] 05/24/2024 Refill [facility] [address] [place] [address] Aline Bird LPN Fatigue due to excessive exertion, sequela 04/30/2024 9:15 AM EST Office Visit [facility] [place] [address] Clayton Lyon MD Type 2 diabetes mellitus without complication, without long-term current use of insulin (CMS/HCC) (Primary Dx); Diverticulosis; Tympanic membrane perforation, left 04/30/2024 Travel 04/23/2024 Telephone [facility] [address] [place] [address] Clayton Lyon MD Referral 04/22/2024 Telephone [facility] [address] [place] [address] Clayton Lyon MD Chart Prep 04/17/2024 Patient Outreach [facility] [address] [place] [address] Clayton Lyon MD Care Coordination (CHW outreach SDOH pest control - referral completed ) 04/16/2024 Patient Outreach [facility] [address] [place] [address] Clayton Lyon MD Pre-visit Planning (SDOH Screening positive and Tobacco screening negative) 04/15/2024 Refill [facility] [address] [place] [address] Clayton Lyon MD Restrictive lung disease 04/09/2024 Telephone [facility] [address] [place] [address] Clayton Lyon MD Medication REfill from Last 3 Months Immunizations Name Administration [...] Sign Reading Time Taken Comments Blood Pressure 132/86 07/01/2024 10:19 AM EDT Pulse 75 07/01/2024 10:19 AM EDT Temperature 36.7 ??C (98 ??F) 07/01/2024 10:19 AM EDT Respiratory Rate 16 07/01/2024 10:19 AM EDT Oxygen Saturation 98% 07/01/2024 10:19 AM EDT Inhaled Oxygen Concentration - - Weight 71.8 kg (158 lb 3.2 oz) 07/01/2024 10:19 AM EDT Height 170.2 cm (5' 7 ) 04/30/2024 9:21 AM EST Body Mass Index 24.78 04/30/2024 9:21 AM EST Plan of Treatment Upcoming Encounters Date Type Department Care Team (Late st Contact Info) Description 08/13/2024 9:15 AM EDT Office Visit [facility] [address] [place], [place] [phone] Clayton Lyon MD [address] [place] [address] Health Maintenance Due Date Last Done Comments Eye Exam 01/11/1955 RSV Patients and Patients Aged 60 years or older (1 - 1-dose 75+ series) 2021 COVID-19 Vaccine ( season) 2023 04/27/2021, 08/29/2020, 08/01/2020 Depression Screening 12/11/2024 12/12/2023, 12/12/19 24 Diabetes: Foot Exam 12/11/2024 12/12/2023, 12/12/2023, 12/12/2023 Diabetes: Urine Protein Screening 12/13/2024 12/14/2023, 04/04/2022, 06/10/2021 Lipid Panel 12/13/2024 12/14/2023, 11/03/2022, 04/04/2022, Additional history exists Diabetes: Hemoglobin A1C 12/31/2024 025, 03/07/2024, 12/12/2023, Additional history exists Alcohol/Substance Use Screening 03/07/2025 03/07/2024 SDOH Screening 04/16/2025 04/16/2024 Tobacco Screening 07/01/2025 07/01/2024 DTaP/Tdap/Td Vaccines (3 - Td or Tdap) [...] Procedure Name Priority Date/Time Associated Diagnosis Comments B TYPE NATRIURETIC PEPTIDE (BNP) Routine 07/08/2024 2:37 PM EDT Decreased cardiac ejection fraction BASIC METABOLIC PANEL Routine 07/08/2024 2:37 PM EDT 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) (CMS/HCC) POCT GLYCATED HEMOGLOBIN, TOTAL Routine 07/01/2024 11:00 AM EDT 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) (CMS/HCC) POCT GLUCOSE Routine 07/01/2024 10:31 AM EDT 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) (CMS/HCC) URINALYSIS, COMPLETE, WITH REFLEX TO CULTURE Routine [...] PANEL, STANDARD Routine 12/14/2023 9:24 AM EDT Hypercholesterolemia ALBUMIN, RANDOM URINE W/CREATININE Routine 12/14/2023 9:20 AM EDT Type 2 diabetes mellitus without complication, without long-term current use of insulin (CMS/HCC) HEPATITIS C AB W/REFL TO HCV RNA, QN, PCR Routine 04/04/2022 10:44 AM EST Type 2 diabetes mellitus without complication, without long-term current use of insulin (CMS/HCC) from Last 3 Months or Most Recently Relevant to Health Maintenance Results * (ABNORMAL) B Type Natriuretic Peptide (BNP) (07/08/2024 2:37 PM EDT) B Type Natriuretic Peptide 357(H) <100 pg/mL [facility] Blood Venous blood specimen / Unknown 07/08/2024 2:37 PM EDT 07/08/2024 3:58 PM EDT us Audrey Noe [facility] LAB BLOOD ORDERABLES Final Resul t [facility] [address] [place] [address] [phone] * Basic Metabolic Panel (07/08/2024 2:37 PM EDT) Sodium 140 135 - 145 mmol/L [facility] Potassium 4.6 3.3 - 5.1 mmol/L [facility] Chloride 106 96 - 108 mmol/L [facility] Carbon Dioxide 27 22 - 29 mmol/L [facility] Anion Gap 12 12 - 20 [facility] Urea Nitrogen (BUN) 10 9 - 16 mg/dL [facility] Creatinine, Serum 0.94 0.5 - 1.4 mg/dL [facility] Estimated Glomerular Filt Rate >60 [facility] Comment:Chronic Kidney Disea se: Estimated GFR < 60 mL/min/1.91b3Wydwqm Kidney Disease: Estimated GFR < 15 mL/min/1.73m2 Glucose 111 60 - 115 mg/dL [facility] Calcium 9.3 8.4 - 10.2 mg/dL [facility] Blood Venous blood specimen / Unknown 07/08/2024 2:37 PM EDT 07/08/2024 4:00 PM EDT Audrey Noe ANP LAB BLOOD ORDERABLES Final Resul t [facility] [address] [place] [phone] * (ABNORMAL) POCT HGB A1C (07/01/2024 11:00 AM EDT) Hemoglobin A1C 6.2(A) 4.0 - 6.0 % QC Media Lot # [id number] Lot# Expiration Date Blood 07/01/2024 11:0 0 AM EDT Audrey Noe ANP POINT OF CARE TEST ENTER/EDIT OR DERABLES Final Result * POCT Glucose (07/01/2024 10:31 AM EDT) Only the most recent of2 resultswithin the time period is included. Glucose Blood, POC 124 60 - 200 mg/dL QC Media Lot # [id number] Lot# Expiration Date Blood Capillary blood specimen / Unknown 07/01/2024 10:31 AM EDT [facility] POINT OF CARE TEST ENTER/EDIT OR DERABLES Final Result * (ABNORMAL) Urinalysis, Complete, with Reflex to Culture (06/15/2024 2:21 PM EDT) Color Urine Yellow [facility] Appearance Urine Clear [facility] PH 7.0 5.0 - 9.0 [facility] Glucose Urine UA Negative Negative mg/dL [facility] Urine Blood Negative Negative [facility] Specific [place] - Urine >=1.030(H) 1.005 - 1.025 [facility] Urine Protein Negative Neg-Trace mg/dL [facility] Urine Ketones Negative Negative mg/dL [facility] Nitrite Urine Negative Negative [facility] Leukocyte Esterase Urine Negative Negative [facility] RBC Urine 0-2 0 - 2 /HPF [facility] Urine WBC 0-5 0 - 5 /HPF [facility] Urine Squamous Epithelial Cell 0-2 0 - 2 /HPF [facility] Urine Bacteria None Seen None Seen [facility] Hyaline Casts, Urine 0-2 0 - 2 /LPF [facility] 06/15/2024 2:21 PM EDT 06/15/2024 2:33 PM EDT Narrative [facility] - 06/15/2024 2:40 PM EDT Urine, Clean Catch us Generic External Data Provider LAB URINE ORDERAB LES Final Result [facility] [address] [place] [phone] * CT Abdomen Pelvis w/ Contrast (06/15/2024 1:52 PM EDT) Anatomical Region Laterality Modality Body, Pelvis, Abdomen Computed T omography 06/15/2024 1:52 PM EDT Narrative 06/15/2024 1:54 PM EDT ? [facility] ?[address] ?[place] [address] ? CT Scan Report ? Signed ? Patient: Davis,Shelton ?MR#: [id number] ? : 1945 ?Acct:[id number] ? Age/Sex: 79 / M ?ADM Date: 06/15/24 ? Loc: HO.ED ? Attending Dr: ? Ordering Physician: Shira Robison ?? Date of Service: 06/15/24 ?? Procedure(s): CT abdomen pelvis w IV con ?? Accession Number(s): [id number] ? cc: Clayton Chavez MD; Shira Robison ? Report Number: ?? [id number]: Total DLP = ??459.00 mGy-cm ? CLINICAL HISTORY: abd pain ? CT ABDOMEN AND PELVIS WITH CONTRAST ? Comparison: CT/AR/SR - CT ABDOMEN PELVIS W IV CON [...] signed by Marcela Barone MD in OV> ?06/15/241352 ? DD/ 51 ? TD/TT: 06/15/242 ? Chief Engineer Production: ? Procedure Note Donotuseinterpreter, Image - 06/15/[address] [place] [address] [address] Scan Report Signed Patient: Mariah Davis#: [id number] : 1945cct:[id number] Age/Sex: 79 / MADM Date: 06/15/24 Loc: HO.ED Attending Dr: Ordering Physician: Shira Robison Date of Service: 06/15/24 Procedure(s): CT abdomen pelvis w IV con Accession Number(s): [id number] cc: Clayton Chavez MD; Shira Robison Report Number: [id number]: Total DLP = 459.00 mGy-cm CLINICAL HISTORY: abd pain CT ABDOMEN AND PELVIS WITH CONTRAST Comparison: CT/AR/SR - CT ABDOMEN PELVIS W IV CON [...] 06/15/24 1353 DD/ 1352 TD/TT: 06/15/24 1352 Chief Engineer Production: [facility] External Provider IMG CT PROCEDURES Edited Result - Final * High Sensitivity Troponin I (06/15/2024 1:16 PM EDT) TROPONIN I HIGH SENSITIVITY 12.3 <3.5 - 35.0 ng/L [facility] Comment:The [employer] high sens itivity Troponin-I results should beused in conjunction with other diagnostic information suchas ECG, clinical observations and information, and patientsymptoms to aid in the diagnosis of [place]. 06/15/2024 1:16 PM EDT 06/15/2024 1:18 PM EDT Narrative [facility] - 06/15/2024 1:52 PM EDT Comment RPT TROP AT 1304 Generic External Data Provider LAB BLOOD ORDERAB LES Final Result Performing Organization Address City/State/[facility] Co de Phone Number [facility] [address] [place] [phone] * XR Chest 1 View (06/15/2024 11:34 AM EDT) Anatomical Region Laterality Modality Chest Radiographic Lisset ging 06/15/2024 11:3 4 AM EDT Narrative 06/15/2024 11:35 AM EDT ? [facility] ?[address] ?[place] [address] ?XRay Report ? Signed ? Patient: Davis,Shelton ?MR#: [id number] ? : 1945 ?Acct:[id number] ? Age/Sex: 79 / M ?ADM Date: 03/22/25 ? Loc: HO.ED ? Attending Dr: ? Ordering Physician: Shira Robison ?? Date of Service: 06/15/24 ?? Procedure(s): XR chest 1V ?? Accession Number(s): [id number] ? cc: Clayton Chavez MD; Shira Robison ? CLINICAL HISTORY: weakness - unwell ? 1 view chest x-ray ? Comparison: CR/AR/SR - XR CHEST 1V - 08/29/23 13:47 [...] DD/ 1134 ? TD/TT: 06/15/24 1134 ? Chief Engineer Production: ? Procedure Note Doneddieter, Image - 06/15/2024 [place] [address] XRay Report Signed Patient: Mariah Davis#: [id number] : 1945cct:[id number] Age/Sex: 79 / MADM Date: 06/15/24 Loc: HO.ED Attending Dr: Ordering Physician: Shira Robison Date of Service: 06/15/24 Procedure(s): XR chest 1V Accession Number(s): [id number] cc: Clayton Chavez MD; hSira Robison CLINICAL HISTORY: weakness - unwell 1 view chest x-ray Comparison: CR/AR/SR - XR CHEST 1V - 08/29/23 13:47 [...] 06/15/24 1135 DD/ 1134 TD/TT: 06/15/24 1134 Chief Engineer Production: [facility] External Provider IMG XR PROCEDURES Edited Result - Final * SARS-CoV-2 RNA, Influenza A/B, and RSV RNA, Ql NAAT (06/15/2024 11:11 AM EDT) Influenza A PCR NEGATIVE Negative [facility] Influenza B PCR NEGATIVE Negative [facility] Resp Syncy Virus RNA Qual PCR NEGATIVE Negative [facility] SARS COV2 PCR NEGATIVE Negative [facility] Comment:All test results mus [...] use by authorized laboratories.Testing performed on the [employer] GeneXpert utilizingreal-time RT-PCR.All SARS CoV2 and positive influenza A/B results arereported to [facility]. 06/15/2024 11:1 1 AM EDT 06/15/2024 11:13 AM EDT Generic External Data Provider LAB MICROBIOLOGY - GENERAL ORDERABLES Final Result [facility] [address] [place] [address] [phone] * (ABNORMAL) Lipid Panel, Standard (12/14/2023 9:24 AM EDT) Triglycerides 93 <150 mg/dL [facility] Comment:Desirable Triglyceri de: less than 150 mg/dLBorderline High Triglyceride 150-199 mg/dLHigh Triglyceride: 200-499 mg/dLVery High Triglyceride: greater than or equal to 5OO mg/dL Cholesterol 162 <200 mg/dL [facility] Comment:Desirable Cholestero l: less than 200 mg/dLBorderline High Cholesterol: 200-239 mg/dLHigh Cholesterol: greater than 239 mg/dL LDL Cholesterol Calculated 105(H) <100 mg/dL [facility] Comment:Desirable LDL: less than 100 mg/dLNear Optimal/Above Optimal LDL: 110- 129 mg/dLBorderline High LDL: 130-159 mg/dLHigh LDL: 160-189 mg/dLVery High LDL: greater than or equal to 190 mg/dL HDL Cholesterol 39(L) >40 mg/dL [facility] Comment:Desirable HDL: great er than 40 mg/dL Note: This HDL assay may give artificially low results in patients with liver disease. Blood Venous blood specimen / Unknown 12/14/2023 9:24 AM EDT 12/14/2023 11:23 AM EDT Clayton Millard MD LAB BLOOD ORDERABLES Final Result Performing Organization Address City/[facility]/ZIP Co de Phone Number [facility] [address] [place] [phone] * Albumin, Random Urine W/Creatinine (12/14/2023 9:20 AM EDT) Creatinine, Urine 167.95 mg/dL [facility] Microalbumin Urine 8.0 mg/L [facility] Microalbum Creatinine Ratio Ur 4.7 <30 ug/mg cr [facility] Comment:Albumin/Creatinine R atio Reference Ranges: Normal: < 30 ug/mg creatinine Microalbuminuria: 30 - 300 ug/mg creatinineClinical Albuminuria: > 300 ug/mg creatinine Urine (Urine, Random) 12/14/2023 9:20 AM EDT 12/14/2023 11:13 AM EDT us Clayton Millard MD LAB URINE ORDERABLES Final Result Performing Organization Address City/[facility]/ZIP Co de Phone Number [facility] [address] [place] [phone] * Hepatitis C Antibody with Reflex to HCV, RNA, Quantitative, Real-Time PCR (04/04/2022 10:44 AM EST) Hepatitis C Antibody NON-REACT FRANCHESCA NON-REACT FRANCHESCA [facility] [place] [employer] Index <0.02 <1.00 [employer] Comment: HCV antibody was non-reactive. There is no laboratory evidence of HCV infection. In most cases, no further action is required. However, if recent HCV exposure is suspected, a test for HCV RNA (test code 26325) is suggested. For additional information please refer to http://education.[employer]/faq/GMU63v4 (This link is being provided for informational/ educational purposes only.) Blood Venous blood specimen / Unknown 04/04/2022 10:44 AM EST 04/04/2022 10:44 AM EST Narrative [facility] - 04/05/2022 6:45 PM EST FASTING:YES FASTING: YES us Clayton Millard MD LAB BLOOD ORDERABLES Final Result [facility] [address] [place] [phone] [facility] [place] [employer] [address] [facility], ([address]) [place] [phone] from Last 3 Months or Most Recently Relevant to Health Maintenance Insurance [facility] [place] [address] Care Teams Computer Numeric Control Setter Relationship Specialty Start Date End Date Clayton Lyon MD [address] [place] [address] PCP - General Internal Medicine 11/12/13 [facility] 08/18/21
== END 2024-07-08 14:36 | disposition home or self-care (01) ==
LOC: HO.HHCL 14:35
PROVIDERS: Visit Provider Nurse Practitioner Primary Care
DX: R93.1 Abnormal findings on diagnostic imaging of heart and coronary circulation (principal); E11.69 Type 2 diabetes mellitus with other specified complication; E78.5 Hyperlipidemia, unspecified
CPT/HCPCS: 36415; 80048; 83880

== ENCOUNTER 2024-07-11 09:37 | Inpatient (IN) | payer OTHER, SELFPAY ==
[2024-07-11] VITALS (9 sets, daily range): BP systolic 103–142; BP diastolic 64–87; PULSE 61–84; RESP 16–19; TEMP 36.2–36.8; O2SAT 93–96; BMI 25.8; BMI 22.2
--- NOTE | ~2024-07-11 | CT_ITS ---
EXAMINATION: CT HEAD WITHOUT CONTRAST CLINICAL INFORMATION: syncope, on eliquis COMPARISON: March 11, 2024. TECHNIQUE: Contiguous axial imaging was performed from the skull base to vertex without intravenous administration of contrast. This CT examination was performed using dose optimization techniques as appropriate, variously including the following: *Automated exposure control *Adjustment of mA and/or kV according to patient size (this includes techniques or standardized protocols for targeted exams where dose is matched to indication/reason for exam; i.e. extremities or head) *Use of iterative reconstruction technique DLP: 700 mGy-cm FINDINGS: The bony calvarium is intact. The skull base is intact. No acute intracranial hemorrhage, mass effect, midline shift, hydrocephalus or herniation. Posterior cranial fossa contents demonstrated no acute intracranial hemorrhage. Sellar/suprasellar region demonstrated no gross masses or focal hemorrhage. Bilateral multifocal patchy and confluent deep periventricular white matter hypodensities involving centrum semiovale and andrews radiata. Multifocal old lacunar infarcts, brainstem, basal ganglia extracapsular and andrews radiata white matter. Focal encephalomalacia, right insular subinsular region. Prominence of the extra-axial CSF spaces cerebral sulci and ventricles. Calcified plaques in the cavernous supracavernous segments both ICAs. No hematoma is in the intraconal or extraconal compartments of the orbits. No air-fluid levels in the paranasal sinuses. Tympanic cavities and mastoid cells are aerated. Incomplete fusion of the posterior arch of C1. CT/CT head/brain wo IV con IMPRESSION: No acute fracture, bony calvarium. No acute intracranial hemorrhage. Small vessel occlusive disease. Global cerebral atrophy. Electronically signed by: Caleb Andrews MD 07/11/2024 12:02 PM EDT
--- NOTE | ~2024-07-11 | CT_ITS ---
EXAMINATION: CT ABDOMEN AND PELVIS WITH CONTRAST CLINICAL INFORMATION: Vomiting. Abdominal pain. History of diverticulitis. COMPARISON: June 15, 2024. TECHNIQUE: Multidetector volumetric images were obtained from the superior aspect of the liver through the pubic symphysis following administration 85 mL of Omnipaque 350 intravenous contrast. Sagittal and coronal reformatted images were obtained on the technologist's workstation. Oral contrast: No This CT examination was performed using dose optimization techniques as appropriate, variously including the following: *Automated exposure control *Adjustment of mA and/or kV according to patient size (this includes techniques or standardized protocols for targeted exams where dose is matched to indication/reason for exam; i.e. extremities or head) *Use of iterative reconstruction technique. DLP: 492 mGy centimeter. FINDINGS: LUNG BASES: Multifocal patchy pulmonary groundglass. LIVER, GALLBLADDER, AND BILIARY TREE: Liver measures 15 cm. Decreased enhancement pattern. No focal mass. Portal veins and intrahepatic portion of the IVC are patent. No pericholecystic fluid collection or gallbladder wall thickening. No intrahepatic or extrahepatic biliary ductal dilatation. PANCREAS: No focal mass. No peripancreatic fluid collection. No main pancreatic ductal dilatation. SPLEEN: 7 cm. No focal lesion. 2 mm hypodensities/cystic lesion, nonspecific. ADRENAL GLANDS: Soft tissue fullness, left adrenal gland. No nodular mass. KIDNEYS AND URETERS: No hydronephrosis. No gross renal mass. No gross nephrolithiasis. Normal enhancement pattern of the renal cortex. BLADDER: Fluid-filled. GASTROINTESTINAL TRACT: Limited by patient's breathing artifact. Numerous diverticula, descending colon and sigmoid colon. No pericolonic edema pattern. Abundant stool. No intestinal obstruction pattern. No pneumatosis intestinalis. No pneumoperitoneum. No ascites. No peripheral enhancing fluid collections in the peritoneal cavity. There is a collapsed appearance of the ascending colon and hepatic colonic flexure. I do not see the appendix, no mesocecum edema pattern or fluid collections. ABDOMINAL WALL: Small fat-containing umbilical hernia. LYMPH NODES: No gross lymphadenopathy. 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 No aneurysm or dissection of the abdominal aorta and iliac arteries. Calcified plaques in the distal abdominal aorta wall and iliac arteries. The heart is enlarged. PELVIC VISCERA: The prostate gland is not enlarged with dystrophic calcifications. OSSEOUS STRUCTURES: Ra type I sacralization. Spondylosis at multiple levels more conspicuous at L5-S1. 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 Diverticular disease/diverticulosis, left hemicolon. Fleischner guidelines were followed. Electronically signed by: Caleb Andrews MD 07/11/2024 11:59 AM EDT
--- NOTE | ~2024-07-11 | CT_ITS ---
EXAMINATION: CT CERVICAL SPINE WITHOUT CONTRAST CLINICAL INFORMATION: Syncope. COMPARISON: March 11, 2024. TECHNIQUE: Contiguous axial images through the cervical spine using 3 mm collimation with bone and soft tissue algorithm. Sagittal and coronal reformatted images acquired. This CT examination was performed using dose optimization techniques as appropriate, variously including the following: *Automated exposure control *Adjustment of mA and/or kV according to patient size (this includes techniques or standardized protocols for targeted exams where dose is matched to indication/reason for exam; i.e. extremities or head) *Use of iterative reconstruction technique. DLP: 560 mGy centimeter. FINDINGS: Craniocervical junction is intact. Syndesmophyte formation and marginal osteophyte formation C3 C5-6 and C6-7 levels. Decreased intervertebral disc height and endplate sclerosis with subchondral cyst formation, C5-6 and C6-7 levels. Multilevel facet joint hypertrophy more conspicuous at C4-5 and C5-6 levels. There is normal alignment between the vertebral bodies and the facet joints. C1 is intact. C2 is intact. C3 is intact. C4 is intact. C5 is intact. C6 is intact. C7 is intact. No gross prevertebral compartment hematoma. Calcified plaques in the carotid bulbs and proximal ICAs, bilaterally. Tympanic cavities and mastoid cells are aerated. CT/CT cervical spine wo IV con IMPRESSION: Multilevel cervical spondylosis without acute fracture or trauma-related listhesis. Fleischner guidelines were followed. Electronically signed by: Caleb Andrews MD 07/11/2024 12:07 PM EDT
--- NOTE | 2024-07-11 09:52 | ECG_ITS ---
Test Reason : diziness Blood Pressure : */* mmHG Vent. Rate : 80 BPM Atrial Rate : * BPM P-R Int : * ms QRS Dur : 104 ms QT Int : 392 ms P-R-T Axes : * -20 186 degrees QTcB Int : 452 ms Atrial fibrillation with premature ventricular or aberrantly conducted complexes and with ventricular escape complexes Nonspecific ST and T wave abnormality Abnormal ECG When compared with ECG of 27-Jun-2024 00:12, Sinus rhythm is now with ventricular escape complexes Nonspecific T wave abnormality now evident in Inferior leads Referred By: Generic ED Physician Electronically Signed By: MAXWELL GÓMEZ MD
[2024-07-11 10:07] LABS: MANUAL DIFF FLAG NO
[2024-07-11 10:09] LABS: Basophils Percent Auto 0.2 % (0-2); Eosinophils Absolute Auto 0.1 X10*3/uL (0.0-0.4); Eosinophils Percent Auto 0.9 % (0-4); Hemoglobin 16.7 g/dl (14.0-18.0); Imm Gran Abs Auto 0.03 X10*3/uL (0.00-0.03); Imm Gran Pct Auto 0.4 % (0.0-0.4); Lymphocytes Absolute Auto 2.8 X10*3/uL (1.2-4.9); Lymphocytes Percent Auto 32.4 % (20-40); Mean Corpuscular HGB Conc 34.1 g/dl (31.0-36.0); Mean Corpuscular Hemoglobin 32.3 pg (27.0-33.0); Mean Corpuscular Volume 94.8 fL (80.0-98.0); Mean Platelet Volume 10.3 fL (9.4-12.4); Monocytes Absolute Auto 0.5 X10*3/uL (0.1-1.2); Neutrophils Absolute Auto 5.1 x10*3/uL (2.0-8.3); Neutrophils Percent Auto 60.1 % (45-73); Platelet Count 220 X10*3/uL (160-400); Red Blood Count 5.17 X10*6/uL (4.60-5.80); Red Cell Distribution Width 12.7 % (11.0-16.0); White Blood Count 8.5 X10*3/uL (4.8-10.8)
[2024-07-11 10:37] LABS: Alanine Aminotransferase 29 U/L (0-40); Anion Gap 13 (12-20); Aspartate Amino Transferase 33 U/L (5-37); Bilirubin Total 0.9 mg/dL (0.0-1.0); Blood Urea Nitrogen 10 mg/dL (9-16); Calcium 9.5 mg/dL (8.4-10.2); Carbon Dioxide 26 mmol/L (22-29); Chloride 105 mmol/L (96-108); Creatinine Clr Calc Pharmacy 66.1; Estimated Glomerular Filt Rate > 60; Glucose Random 163 mg/dL (60-115); Potassium 4.3 mmol/L (3.3-5.1); Sodium 140 mmol/L (135-145)
--- NOTE | 2024-07-11 10:41 | ED_ITS ---
HPI - Syncope General Chief Complaint: Abdominal Pain Stated Complaint: ABD PAIN,VOMITING PER EMS Time Seen by Provider: 07/11/24 10:04 Source: patient and EMS Mode of arrival: EMS Limitations: no limitations History of Present Illness ED Provider: Amber Castillo PA-C HPI narrative: 79 yo Yemeni speaking male with history of Afib on Eliquis, CVA, non-ischemic cardiomyopathy with EF 15-20%, BPH, GERD, migraines, asthma, recent admission to [facility]/15-06/19 for diverticulitis and new onset afib, who presents to the ER from home c/o acute onset of nausea, vomiting and abdominal pain that started this morning along with generalized weakness. He states he had an episode of vomiting this morning, felt extremely weak and lightheaded to the point where he passed out and fell to the ground. He fell onto his back and denies hitting his head. He is unsure how long he lost consciousness for. His daughter was home at the time. He is still feeling weak but no longer having nausea, dizziness or abdominal pain. He denies any chest pain or SOB. He reports epigastric and lower chest pain/pressure yesterday that self resolved. He denies diarrhea, melena or BRBPR. He reports after discharge he completed the abx for diverticulitis. MD complaint: loss of consciousness and collapsed Onset (ago): hour(s) Prodromal symptoms: lightheaded and nausea/vomiting Injuries sustained associated with event: none Current symptoms: weakness Treatments prior to arrival: none Related Data Home Medications ?Medication ?Instructions ?Recorded ?Confirmed amitriptyline 25 mg tablet 25 mg PO BEDTIME 01/28/20 07/11/24 albuterol sulfate 2.5 mg/3 mL 2.5 mg inhalation QID PRN Wheezing 06/11/20 07/11/24 (0.083 %) solution for nebulization atorvastatin 80 mg tablet 80 mg PO DAILY 06/11/20 07/11/24 multivitamin 1 tab PO DAILY 06/11/20 07/11/24 albuterol sulfate 90 mcg/actuation 2 puff inhalation Q6H PRN Wheezing 11/13/20 07/11/24 aerosol inhaler (Ventolin HFA) blood sugar diagnostic (FreeStyle #10 ea 06/15/21 12/20/22 Lite Strips) lancets 33 gauge (TRUEplus Lancets) #100 ea 06/15/21 12/20/22 pantoprazole 40 mg tablet,delayed 40 mg PO DAILY@0630 06/15/24 07/11/24 release sumatriptan succinate 50 mg tablet 50 mg PO Q2H PRN Migraine Headache 06/15/24 07/11/24 empagliflozin 10 mg tablet 10 mg PO DAILY 07/11/24 07/11/24 (Jardiance) metoprolol tartrate 25 mg tablet 25 mg PO BEDTIME 07/11/24 07/11/24 metoprolol tartrate 50 mg tablet 50 mg PO DAILY@0800 07/11/24 07/11/24 sacubitril 24 mg-valsartan 26 mg 1 tab PO BID 07/11/24 07/11/24 tablet (Entresto) vericiguat 2.5 mg tablet (Verquvo) 2.5 mg PO DAILY 07/11/24 07/11/24 Previous Rx's ?Medication ?Instructions ?Recorded apixaban 5 mg tablet (Eliquis) 5 mg PO BID #180 tabs 06/19/24 digoxin 125 mcg (0.125 mg) tablet 0.125 mg PO DAILY #90 tabs 06/19/24 Allergies Allergy/AdvReac Type Severity Reaction Status Date / Time lisinopril [LISINOPRIL] Allergy Intermediate COUGH Verified 07/11/24 09:43 oxycodone [From PERCOCET] Allergy Intermediate VOMITING Verified 07/11/24 09:43 alprazolam [From XANAX] AdvReac Intermediate VOMITING Verified 07/11/24 09:43 gabapentin AdvReac Abdominal Verified 07/11/24 09:43 Pain Review of Systems 2 Review of Systems: Yes all other systems are reviewed and are negative [facility] Past Medical History Medical History Weak urinary stream Erectile dysfunction Bleeding hemorrhoids Diabetes mellitus Arteriosclerosis Cancer Pulmonary nodule Non-ischemic cardiomyopathy CVA (cerebral vascular accident) Arthritis Asthma GERD (gastroesophageal reflux disease) Elevated cholesterol Diastolic dysfunction Surgical History Hx of transurethral resection of prostate History of esophagogastroduodenoscopy (EGD) H/O colonoscopy Hx of cataract extraction History of ankle surgery History of surgical removal of skin lesion History of hemorrhoidectomy History of appendectomy Family History Family History Father Prostate cancer Mother Parkinson disease Social History Social History Household Members: Children and Other Household Members Other:: two grandchild Housing: Apartment Do you presently have visiting nurse or other home services: Yes Alcohol intake: former Patient Tobacco Use Status: Former Tobacco user Second Hand Smoke Exposure: No Advance Directives: No Advance Directives Information Provided: Yes Do you have a plan to hurt others: No Plan service: No Physical Exam 2 Vital Signs: Vital Signs: Last Vital Signs Temp 97.2 F 07/11/24 12:32 Pulse 69 07/11/24 14:00 Resp 16 07/11/24 14:00 BP 135/86 07/11/24 14:00 Pulse Ox 95 07/11/24 14:00 O2 Del Method Room Air 07/11/24 14:00 BMI result Body Mass Index 25.8 Appearance: Alert. Oriented X3. No acute distress. Head: normocephalic, atraumatic. Eyes: Pupils equal, round and reactive to light. ENT: Pharynx normal. No tonsillar swelling or exudate. Neck: Normal inspection. Neck supple. no cervical spinal tenderness. FROM CVS: Normal heart rate and rhythm. Pulses normal. Respiratory: No respiratory distress. Breath sounds normal. Abdomen: Soft with mild tenderness to deep palpation of both the RLQ and LLQ, no rebound or guarding. +BS x4 Skin: Skin warm and dry. Normal skin color. Normal skin turgor. No rashes. Extremities: No lower extremity edema. No joint swelling. Neuro/psych: Oriented X 3. No motor deficit. No sensory deficit. CN II-XII intact. Normal speech and cognition. Medications Administered Discontinued Medications Generic Name Dose Route Start Last Admin Trade Name Freq PRN Reason Stop Dose Admin Iohexol 100 ml 07/11/24 11:27 07/11/24 11:27 Iohexol 350 Mg/Ml 100 Ml Infus..Btl IV 07/11/24 11:28 85 ml ONCE ONE Administration Morphine Sulfate 2 mg 07/11/24 13:22 07/11/24 13:57 Morphine Sulfate 2 Mg/Ml Cartridge IVPUSH 07/11/24 13:23 2 mg ONCE ONE Administration Protocol Ondansetron HCl 4 mg 07/11/24 13:22 07/11/24 13:57 Ondansetron Hcl 4 Mg/2 Ml Vial IVPUSH 07/11/24 13:23 4 mg ONCE ONE Administration Medical Decision Making Medical Decision Making MDM Narrative: 79 yo Yemeni speaking male with history of Afib on Eliquis, CVA, non-ischemic cardiomyopathy with EF 15-20%, BPH, GERD, migraines, asthma, recent admission to [facility] [place] 06/15-06/19 for diverticulitis and new onset afib, who presents to the ER from home c/o acute onset of N/V and abdominal pain w/ generalized weakness and an episode of syncope this morning. VSS on arrival. orthostatics negative. labs showing no leukocytosis, no anemia. EKG without ischemic changes. labs reassuring with trop 9, BNP improved from prior 228. normal renal function, lytes and LFTs. CT scan abd/pelvis showing evidence of celiac artery compression syndrome. spoke with Radiologist who reports these findings were also present on CT scan in May will need non-emergent vascular consult, not an acute process and given his extensive cardiac history he will need clearance before any sort of intervention is considered upon reevaluation patient is c/o recurrent abdominal pain. tenderness to the periumbilical and epigastric areas. IV morphine and zofran ordered will plan for admission given his abd pain, syncopal episode and cardiac history Differential Diagnosis Differential Diagnoses: The differential diagnosis associated with the presentation includes syncope, cardiac arrythmia, orthostatic hypotension, recurrent diverticulitis, dehydration, MARY ALICE, bowel perforation, colonic abscess Admission/Observation Consideration of admission/observation: Escalation of care including admission/observation considered Consult Healthcare Provider Management of the patient was discussed with: Hospitalist Lab Data [facility] Lab Attestation statement: I reviewed the patient's lab results. no leukocytosis, no anemia, no major metabolic derangement 07/11/24 10:02 07/11/24 10:02 Labs: Lab Results 07/11/24 07/11/24 Range/Units 10:02 10:04 WBC 8.5 (4.8-10.8) X10*3/uL RBC 5.17 (4.60-5.80) X10*6/uL Hgb 16.7 (14.0-18.0) g/dl Hct 49.0 (42.0-52.0) % MCV 94.8 (80.0-98.0) fL MCH 32.3 (27.0-33.0) pg MCHC 34.1 (31.0-36.0) g/dl RDW 12.7 (11.0-16.0) % Plt Count 220 (160-400) X10*3/uL MPV 10.3 (9.4-12.4) fL Immature Gran % (Auto) 0.4 (0.0-0.4) % Neut % (Auto) 60.1 (45-73) % Lymph % (Auto) 32.4 (20-40) % [place] % (Auto) 6.0 (2-11) % Eos % (Auto) 0.9 (0-4) % Baso % (Auto) 0.2 (0-2) % Lymph # (Auto) 2.8 (1.2-4.9) X10*3/uL [place] # (Auto) 0.5 (0.1-1.2) X10*3/uL Eos # (Auto) 0.1 (0.0-0.4) X10*3/uL Baso # (Auto) 0.0 (0.0-0.2) X10*3/uL Abs Immat Gran (auto) 0.03 (0.00-0.03) X10*3/uL Absolute Neuts (auto) 5.1 (2.0-8.3) x10*3/uL Absolute Nucleated RBC 0.000 (0.0-0.012) X10*3/uL Nucleated RBC % (auto) 0.0 (0.0-0.2) /100WBC Hold Blue Top SEE NOTE Sodium 140 (135-145) mmol/L Potassium 4.3 (3.3-5.1) mmol/L Chloride 105 (96-108) mmol/L Carbon Dioxide 26 (22-29) mmol/L Anion Gap 13 (12-20) BUN 10 (9-16) mg/dL Creatinine 0.92 (0.5-1.4) mg/dL Estim Creat Clear Calc 66.1 Estimated GFR > 60 Random Glucose 163 H (60-115) mg/dL Calcium 9.5 (8.4-10.2) mg/dL Total Bilirubin 0.9 (0.0-1.0) mg/dL AST 33 (5-37) U/L ALT 29 (0-40) U/L Alkaline Phosphatase 82 (39-117) U/L Troponin I High Sens 8.3 (<3.5-35.0) ng/L B-Natriuretic Peptide 228 H (<100) pg/mL Total Protein 7.0 (6.5-8.0) g/dL Albumin 4.0 (3.5-5.0) g/dL Influenza Type A (PCR) NEGATIVE (Negative) Influenza Type B (PCR) NEGATIVE (Negative) RSV RNA Qual (PCR) NEGATIVE (Negative) SARS-CoV-2 RNA (RT-PCR) NEGATIVE (Negative) Independent Interpretation I performed an independent interpretation of an: EKG and CT Scan Interpretation: ekg w/ afib w/ PVCs, HR 80bpm, no ST segment elevations or depressions CT scan abd/pelvis without air fluid levels to suggest obstruction, no appreciated colonic stranding or abscess Radiology Impression Discussion of test interpretation with radiology: I have reviewed the radiologist's reading. 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 Diverticular disease/diverticulosis, left hemicolon. Independent Historian Clinical information obtained from an independent historian. History obtained from or confirmed by: EMS External Record Review External record reviewed: Inpatient record, Outpatient record, Prior outpatient labs and Prior outpatient radiology Prescription Management I considered prescription management with: Pain Medication and Antibiotic Chronic Conditions Patient?s care impacted by: Diabetes and Other (CMP w/ EF 15%) Critical Care Time Critical Care Time Critical Care Time: No Discharge Plan Discharge Clinical Impression: Syncope and collapse, Abdominal pain Patient Disposition: Admitted As Inpatient Print Language: Yemeni
[2024-07-11 11:06] LABS: Influenza A PCR NEGATIVE (Negative); Influenza B PCR NEGATIVE (Negative); Resp Syncy Virus RNA Qual PCR NEGATIVE (Negative); SARS COV2 PCR INHOUSE NEGATIVE (Negative)
[2024-07-11 11:20] LABS: Troponin-I High Sensitivity 8.3 ng/L (<3.5-35.0)
[2024-07-11 11:26] LABS: Alkaline Phosphatase 82 U/L (39-117)
[2024-07-11] MEDS: iohexoL 350 MG/ML 100 ML INFUS..BTL IV (11:27)
[2024-07-11 11:29] LABS: B Type Natriuretic Peptide 228 pg/mL (<100)
--- OUTSIDE RECORDS SUMMARY | 2024-07-11 11:40 | XMS_ITS ---
Author Organization [facility] Address [address] [place] [id number] Care Team Providers Care Support Staff Name Role Phone Dawson Millard MD, [place] Primary Care Provide r Reid Monroy Jr, Glenn Unavailable REASON FOR VISIT bowel prep Encounters Encounter Location Date Provider Diagnosis [facility] [address] [place] [id number] 07/08/2024 Glenn Monroy Jr Plan Of Treatment Next Appt Details Provider Name:Glenn goss Jr, 09/03/2024 08:20:00 AM, [address] [place] [address] , [place], [place], [phone], Progress Notes * ROBB PADRONDOB:1945 ( 79 yo M)Acc No.[id number]:07/08/2024 Patient:?ROBB PADRON :1945???Age:79 Y???Sex:Male Address:[address], [place] [address] * true * Date:? Generated for Printi ng/Falitzyg/eTransmitting on:?07/11/2024 11:40 AM EDT
--- OUTSIDE RECORDS SUMMARY | 2024-07-11 11:41 | XMS_ITS | Clinical Summary ---
Author Organization [employer] Address [address] [place] [address] 7t [place] [address] Care Team Providers Care Job Setter Honing Name Role Phone Clayton Lyon MD Primary Care Provide r Chris Leal MD Unavailable [phone] Allergies Active Allergy Reactions Criticality Noted Date Comments Alprazolam 03/28/2022 Dicyclomine 12/19/2017 Gabapentin 03/28/2022 Lisinopril 05/17/2016 Oxycodone 03/28/2022 Medications timolol (Timoptic) 0.5 % ophthalmic solution PLACE 1 DROP IN THE RIGHT EYE EVERY MORNING 12/23/19 22 Active pantoprazole (ProtoNix) 40 MG EC tablet Take 40 mg by mouth 2 times daily. 03/01/20 Active metoprolol tartrate (Lopressor) 25 MG tablet Take 25 mg by mouth 2 times daily. 03/01/20 Active FREESTYLE LITE test strip USE TO TEST BLOOD SUGAR TWICE DAILY DIRECTED 12/17/19 Active Blood Glucose Monitoring Suppl (FreeStyle [place] Lite) w/Device kit USE FOR TEST BLOOD SUGAR EVERY DAY 05/28/19 Active atorvastatin (Lipitor) 80 MG tablet Take [...] complication, without long-term current use of insulin ([facility]) TAKE 1 TABLET BY MOUTH EVERY EVENING [...] (11/01/2022 10:24 AM EDT): Pt seen by [employer] [address] Garcia He reviewed his laboratory results That included: CRP, RF, ESR and DAVIE were all Normal His assessment was that patient had fibromyalgia Right hand pain 11/01/2022 Assessment & Plan (02/14/2023 10:24 AM EST): Patient with painful right index finger, difficulty bending it. Seen at [facility] received steroid injections with good results 11/24/2022 Assessment & Plan (11/01/2022 10:25 AM EDT): Patient with painful right index finger, difficulty bending it. Seen in the past at [facility] received steroid injections with good results Pt would like to go back Grade II hemorrhoids 11/01/2022 Assessment & Plan (02/14/2023 10:24 AM EST): Evaluated by Dr Carney 10/2022 opted for conservative measures Assessment & Plan (11/01/2022 10:32 AM EDT): Patient with c/o BRBPR Exam indicative of hemorrhoids Plan: Increase fluid, fiber in diet Proctosl H Referral to Dr Carney [facility] health care 08/02/2022 Assessment & Plan (03/07/2024 [...] EST): Pt seen in the ER at [facility] yesterday with cough, diagnosed with bronchitis. Treated with Prednisone, Benzonatate and a z-pack, Chest x-ray was negative Arthralgia 05/12/2022 Assessment & Plan (05/30/2022 12:49 PM EST): Televisit Pt seen by Dr. Enrique at our [facility] with c/o arthralgias, worse the [...] shoulder pain. Seen in the past at [facility], last seen 02/27/2019 received a steroid injection [...] Clinical correlation recommended. Pt was seen by Manager Product Support 08/2018 who thought this was due to [...] of his LS spine done showed: 1. Vapf-oi-uijfdofw loss of disc height at L4-L5 with a right paracentral disc extrusion resulting in mass effect upon the right L5 nerve root. Mild central canal stenosis. Broad-based left lateral disc protrusion and endplate spurring abutting the exiting left L4 nerve root. Syxg-nk-gldeijuk bilateral foraminal narrowing. 2. Mild spondylitic changes [...] Encounters Date Type Department Care Team Description 07/11/2024 Orders Only GENERIC EXTERNAL DATA DEPARTMENT Provider, Generic External Data 07/10/2024 Telephone [facility] [place] [address] Danielle [place] Faxed 07/08/[address] [phone] Clayton Lyon MD 07/01/2024 10:00 AM EDT Office Visit [address] [address] Audrey Noe ANP Atrial fibrillation, unspecified type (CMS/HCC) (Primary Dx); 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) (CMS/HCC); Hospital discharge follow-up; Pneumonia of both lungs due to infectious organism, unspecified part of lung; Diverticulosis; Cardiomyopathy, unspecified type (CMS/HCC); Decreased cardiac ejection fraction 07/01/[address] Bhatnagar F/U 07/01/2024 Travel 06/24/2024 Patient Outreach [address] [phone] Clayton Lyon MD Transition Of Care (Tcm) (HDF- scheduled and SDOH screening was completed on 04/16/2024) 06/20/2024 Patient Outreach [address] [address] Clayton Lyon MD Transition Of Care (Tcm) (HDF unscheduled) 06/20/[address] [phone] Clayton Lyon MD Hospital Follow-up 06/15/2024 Orders Only [facility] External Provider, [facility] 05/24/2024 Refill [facility] [address] [place], [place] [phone] Aline Bird LPN Fatigue due to excessive exertion, sequela 04/30/2024 9:15 AM EST Office Visit [facility] [address] [place] [phone] Clayton Lyon MD Type 2 diabetes mellitus without complication, without long-term current use of insulin ([facility]) (Primary Dx); Diverticulosis; Tympanic membrane perforation, left 04/30/2024 Travel 04/23/[address] [address] Clayton Lyon MD Referral 04/22/[address] [address] Clayton Lyon MD Chart Prep 04/17/2024 Patient Outreach [address] [address] Clayton Lyon MD Care Coordination (CHW outreach SDOH pest control - referral completed ) 04/16/2024 Patient Outreach [address] [address] Clayton Lyon MD Pre-visit Planning (SDOH Screening positive and Tobacco screening negative) 04/15/[address] [address] Clayton Lyon MD Restrictive lung disease from Last 3 Months Immunizations Name Administration [...] Description 08/13/2024 9:15 AM EDT Office Visit [facility] [address] [place], [place] [phone] Clayton Lyon MD [address] [place], [place] [phone] Health Maintenance Due Date Last Done Comments Eye Exam 01/11/1955 RSV Patients and Patients Aged 60 years or older (1 - 1-dose 75+ series) 2021 COVID-19 Vaccine ( season) 2023 04/27/2021, 08/29/2020, 08/01/2020 Depression Screening 12/11/2024 12/12/2023, 12/12/19 24 Diabetes: Foot Exam 12/11/2024 12/12/2023, 12/12/2023, 12/12/2023 Diabetes: Urine Protein Screening 12/13/2024 12/14/2023, 04/04/2022, 06/10/2021 Lipid Panel 12/13/2024 12/14/2023, 1103/2022, 04/04/2022, Additional history exists Diabetes: Hemoglobin A1C [...] Procedure Name Priority Date/Time Associated Diagnosis Comments SARS COV2/INFLUENZA A/B AND RSV RNA QL NAAT Routine 07/11/2024 10:04 AM EDT HOLD LT BLUE - POSSIBLE COAG Routine 07/11/2024 10:02 AM EDT B TYPE NATRIURETIC PEPTIDE (BNP) Routine 07/08/2024 [...] Recently Relevant to Health Maintenance Results * SARS-CoV-2 RNA, Influenza A/B, and RSV RNA, Ql NAAT (07/11/2024 10:04 AM EDT) Only the most recent of2 resultswithin the time period is included. Influenza A PCR NEGATIVE Negative [facility] Influenza B PCR NEGATIVE Negative [facility] Resp Syncy Virus RNA Qual PCR NEGATIVE Negative [facility] SARS COV2 PCR NEGATIVE Negative [facility] Comment:All test results mus t [...] use by authorized laboratories.Testing performed on the [employer] GeneXpert utilizingreal-time RT-PCR.All SARS CoV2 and positive influenza A/B results arereported to [facility]. 07/11/2024 10:0 4 AM EDT 07/11/2024 10:09 AM EDT Generic External Data Provider LAB MICROBIOLOGY - GENERAL ORDERABLES Final Result Performing Organization Address [facility]/ZIP Co de Phone Number [facility] [address] [place] [phone] * HOLD LT BLUE - POSSIBLE COAG (07/11/2024 10:02 AM EDT) Hold Lt Blue - Possible Coag SEE NOTE [facility] Comment:Specimen will be hel d untested for 4 hours. Call Hematologyif testing is desired. 07/11/2024 10:0 2 AM EDT 07/11/2024 10:10 AM EDT Generic External Data Provider LAB BLOOD ORDERAB LES Final Result Performing Organization Address [facility]/ZIP Co de Phone Number [facility] [address] [place] [phone] * (ABNORMAL) B Type Natriuretic Peptide (BNP) (07/08/2024 2:37 PM EDT) B Type Natriuretic Peptide 357(H) <100 pg/mL [facility] Blood Venous blood specimen / Unknown 07/08/2024 2:37 PM EDT 07/08/2024 3:58 PM EDT Audrey Noe ANP LAB BLOOD ORDERABLES Final Resul t Performing Organization Address [facility] Co de Phone Number [facility] [address] [place] [address] [phone] * Basic Metabolic Panel (07/08/2024 2:37 PM EDT) Sodium 140 135 - 145 mmol/L [facility] Potassium 4.6 3.3 - 5.1 mmol/L [facility] Chloride 106 96 - 108 mmol/L [facility] Carbon Dioxide 27 22 - 29 mmol/L [facility] Anion Gap 12 12 - 20 [facility] Urea Nitrogen (BUN) 10 9 - 16 mg/dL [facility] Creatinine, Serum 0.94 0.5 - 1.4 mg/dL [facility] Estimated Glomerular Filt Rate >60 [facility] Comment:Chronic Kidney Disea se: Estimated GFR < 60 mL/min/1.74b7Akbdwe Kidney Disease: Estimated GFR < 15 mL/min/1.73m2 Glucose 111 60 - 115 mg/dL [facility] Calcium 9.3 8.4 - 10.2 mg/dL [facility] Blood Venous blood specimen / Unknown 07/08/2024 2:37 PM EDT 07/08/2024 4:00 PM EDT Audrey Noe ANP LAB BLOOD ORDERABLES Final Resul t Performing Organization Address [facility] Co de Phone Number [facility] [address] [place] [address] [phone] * (ABNORMAL) POCT HGB A1C (07/01/2024 11:00 AM EDT) Hemoglobin A1C 6.2(A) 4.0 - 6.0 % QC Media Lot # [id number] Lot# Expiration Date Blood 07/01/2024 11:0 0 AM EDT [facility] POINT OF CARE TEST ENTER/EDIT OR DERABLES Final Result * POCT Glucose (07/01/2024 10:31 AM EDT) Only the most recent of2 resultswithin the time period is included. Glucose Blood, POC 124 60 - 200 mg/dL QC Media Lot # [id number] Lot# Expiration Date Blood Capillary blood specimen / Unknown 07/01/2024 10:31 AM EDT [facility] POINT OF CARE TEST ENTER/EDIT OR DERABLES Final Result * (ABNORMAL) Urinalysis, Complete, with Reflex to Culture (06/15/2024 2:21 PM EDT) Color Urine Yellow [facility] Appearance Urine Clear [facility] PH 7.0 5.0 - 9.0 [facility] Glucose Urine UA Negative Negative mg/dL [facility] Urine Blood Negative Negative [facility] Specific [place] - Urine >=1.030(H) 1.005 - 1.025 [facility] Urine Protein Negative Neg-Trace mg/dL [facility] Urine Ketones Negative Negative mg/dL [facility] Nitrite Urine Negative Negative [facility] Leukocyte Esterase Urine Negative Negative [facility] RBC Urine 0-2 0 - 2 /HPF [facility] Urine WBC 0-5 0 - 5 /HPF [facility] Urine Squamous Epithelial Cell 0-2 0 - 2 /HPF [facility] Urine Bacteria None Seen None Seen [facility] Hyaline Casts, Urine 0-2 0 - 2 /LPF [facility] 06/15/2024 2:21 PM EDT 06/15/2024 2:33 PM EDT Narrative [facility] - 06/15/2024 2:40 PM EDT Urine, Clean Catch us Generic External Data Provider LAB URINE ORDERAB LES Final Result [facility] [address] [place] [address] [phone] * CT Abdomen Pelvis w/ Contrast (06/15/2024 1:52 PM EDT) Anatomical Region Laterality Modality Body, Pelvis, Abdomen Computed T omography 06/15/2024 1:52 PM EDT Narrative 06/15/2024 1:54 PM EDT ? [facility] ?[address] ?[place] [address] ? CT Scan Report ? Signed ? Patient: Shelton Davis ?MR#: [id number] ? : 1945 ?Acct:[id number] ? Age/Sex: 79 / M ?ADM Date: 06/15/24 ? Loc: HO.ED ? Attending Dr: ? Ordering Physician: Shira Robison ?? Date of Service: 06/15/24 ?? Procedure(s): CT abdomen pelvis w IV con ?? Accession Number(s): [id number] ? cc: Clayton Chavez MD; Shira Robison ? Report Number: ?? [id number]: Total DLP = ??459.00 mGy-cm ? CLINICAL HISTORY: abd pain ? CT ABDOMEN AND PELVIS WITH CONTRAST ? Comparison: CT/MS/SR - CT ABDOMEN PELVIS W IV CON [...] This document has been electronically signed by: aMrcela Barone, DO on ?? 06/15/2024 13:52:13 ? Dictated By: ?Marcela Barone MD ? Signed By: ?<Electronically signed by Marcela Barone MD in OV> ?06/15/24 1353 ? DD/ 1352 ? TD/TT: 06/15/24 1352 ? Cash Manager: ? Procedure Note Doneddieter, Image - 06/15/[address] [place] [address] [address] Scan Report Signed Patient: Shelton DavisMR#: [id number] : 6Acct:[id number] Age/Sex: 79 / MADM Date: 06/15/24 Loc: HO.ED Attending Dr: Ordering Physician: Shira Robison Date of Service: 06/15/24 Procedure(s): CT abdomen pelvis w IV con Accession Number(s): [id number] cc: Clayton Chavez MD; Shira Robison Report Number: [id number]: Total DLP = 459.00 mGy-cm CLINICAL HISTORY: abd pain CT ABDOMEN AND PELVIS WITH CONTRAST Comparison: CT/MS/SR - CT ABDOMEN PELVIS W IV CON [...] 06/15/24 1353 DD/ 1352 TD/TT: 06/15/24 1352 Cash Manager: [facility] External Provider IMG CT PROCEDURES Edited Result - Final * High Sensitivity Troponin I (06/15/2024 1:16 PM EDT) TROPONIN I HIGH SENSITIVITY 12.3 <3.5 - 35.0 ng/L [facility] Comment:The Matias high sens itivity Troponin-I results should beused in conjunction with other diagnostic information suchas ECG, clinical observations and information, and patientsymptoms to aid in the diagnosis of [place]. 06/15/2024 1:16 PM EDT 06/15/2024 1:18 PM EDT Narrative [facility] - 06/15/2024 1:52 PM EDT Comment RPT TROP AT 1304 Generic External Data Provider LAB BLOOD ORDERAB LES Final Result [facility] [address] [place] [phone] * XR Chest 1 View (06/15/2024 11:34 AM EDT) Anatomical Region Laterality Modality Chest Radiographic Lisset ging 06/15/2024 11:3 4 AM EDT Narrative 06/15/2024 11:35 AM EDT ? [facility] ?[address] ?[place] [address] ?XRay Report ? Signed ? Patient: Davis,Shelton ?MR#: [id number] ? : 1945 ?Acct:[id number] ? Age/Sex: 79 / M ?ADM Date: 06/15/24 ? Loc: HO.ED ? Attending Dr: ? Ordering Physician: Shira Robison ?? Date of Service: 06/15/24 ?? Procedure(s): XR chest 1V ?? Accession Number(s): [id number] ? cc: Clayton Chavez MD; Shira Robison ? CLINICAL HISTORY: weakness - unwell ? 1 view chest x-ray ? Comparison: CR/MS/SR - XR CHEST 1V - 08/29/23 13:47 EDT ? Findings: ?? Bilateral lower lobe opacities. ?? No pleural effusion or pneumothorax. ?? The cardiac silhouette is enlarged. No CHF. ?? No acute fracture. ? IMPRESSION: ?? Bilateral lower lobe opacities secondary to atelectasis, infiltrates or ?? aspiration. ? This document has been electronically signed by: Marcela Barone DO on ?? 06/15/2024 11:34:45 ? Dictated By: ?Marcela Barone MD ? Signed By: ?<Electronically signed by Marcela Barone MD in OV> ?06/15/24 1135 ? DD/ ? TD/TT: 06/15/241133 ? Cash Manager: ? Procedure Note Nicole Alcazar - 06/15/[address] [address] XRay Report Signed Patient: Mariah Davis#: [id number] : 1945cct:[id number] Age/Sex: 79 / MADM Date: 06/15/24 Loc: HO.ED Attending Dr: Ordering Physician: Shira Robison Date of Service: 06/15/24 Procedure(s): XR chest 1V Accession Number(s): [id number] cc: Clayton Chavez MD; Shira Robison CLINICAL HISTORY: weakness - unwell 1 view chest x-ray Comparison: CR/MS/SR - XR CHEST 1V - 08/29/23 13:47 [...] 06/15/24 1135 DD/ 1134 TD/TT: 06/15/24 1134 Cash Manager: [facility] External Provider IMG XR PROCEDURES Edited Result - Final * (ABNORMAL) Lipid Panel, Standard (12/14/2023 9:24 AM EDT) Triglycerides 93 <150 mg/dL [facility] Comment:Desirable Triglyceri de: less than 150 mg/dLBorderline High Triglyceride 150-199 mg/dLHigh Triglyceride: 200-499 mg/dLVery High Triglyceride: greater than or equal to 5OO mg/dL Cholesterol 162 <200 mg/dL [facility] Comment:Desirable Cholestero l: less than 200 mg/dLBorderline High Cholesterol: 200-239 mg/dLHigh Cholesterol: greater than 239 mg/dL LDL Cholesterol Calculated 105(H) <100 mg/dL [facility] Comment:Desirable LDL: less than 100 mg/dLNear Optimal/Above Optimal LDL: 110- 129 mg/dLBorderline High LDL: 130-159 mg/dLHigh LDL: 160-189 mg/dLVery High LDL: greater than or equal to 190 mg/dL HDL Cholesterol 39(L) >40 mg/dL [facility] Comment:Desirable HDL: great er than 40 mg/dL Note: This HDL assay may give artificially low results in patients with liver disease. Blood Venous blood specimen / Unknown 12/14/2023 9:24 AM EDT 12/14/2023 11:23 AM EDT Clayton Millard MD LAB BLOOD ORDERABLES Final Result Performing Organization Address [facility] Co de Phone Number [facility] [address] [place] [phone] * Albumin, Random Urine W/Creatinine (12/14/2023 9:20 AM EDT) Creatinine, Urine 167.95 mg/dL [facility] Microalbumin Urine 8.0 mg/L [facility] Microalbum Creatinine Ratio Ur 4.7 <30 ug/mg cr [facility] Comment:Albumin/Creatinine R atio Reference Ranges: Normal: < 30 ug/mg creatinine Microalbuminuria: 30 - 300 ug/mg creatinineClinical Albuminuria: > 300 ug/mg creatinine Urine (Urine, Random) 12/14/2023 9:20 AM EDT 12/14/2023 11:13 AM EDT Clayton Millard MD LAB URINE ORDERABLES Final Result Performing Organization Address [facility] de Phone Number [facility] [address] [place] [phone] * Hepatitis C Antibody with Reflex to HCV, RNA, Quantitative, Real-Time PCR (04/04/2022 10:44 AM EST) Hepatitis C Antibody NON-REACT FRANCHESCA NON-REACT FRANCHESCA [facility] [place] [facility] Index <0.02 <1.00 [facility] [place] [facility] Comment: HCV antibody was non-reactive. There is no laboratory evidence of HCV infection. In most cases, no further action is required. However, if recent HCV exposure is suspected, a test for HCV RNA (test code 05302) is suggested. For additional information please refer to http://education.MobilePro/faq/WWK43a3 (This link is being provided for informational/ educational purposes only.) Blood Venous blood specimen / Unknown 04/04/2022 10:44 AM EST 04/04/2022 10:44 AM EST Narrative [facility] - 04/05/2022 6:45 PM EST FASTING:YES FASTING: YES us Clayton Millard MD LAB BLOOD ORDERABLES Final Result [facility] [address] [facility] [place] [address] [facility] [place] [facility] [address], ([address]) [place] [address] from Last 3 Months or Most Recently Relevant to Health Maintenance Insurance [facility] Care Teams Job Setter Honing Relationship Specialty Start Date End Date Clayton Lyon MD [address] [place] [address] PCP - General Internal Medicine 11/12/13 Chris Leal MD [address] [place] [phone] Cardiology 07/10/24 [facility] 08/18/21
--- OUTSIDE RECORDS SUMMARY | 2024-07-11 11:41 | XMS_ITS ---
Author Organization [facility] Address [address] [place] [phone] Care Team Providers Care Public Area Supervisor Name Role Phone Dawson Millard MD, Clayton Primary Care Provide iker Monroy Jr, Glenn Unavailable Medications Medication SIG (Take, Route, Frequency, Duration) Notes Start Date End Date Status Pantoprazole Sodium 40 MG 1 tablet Orall y Twice daily for 30 days 11/24/2023 Active Encounters Encounter Location Date Provider Diagnosis [facility] [address] [place] [phone] 05/30/2024 Glenn Monroy Jr Plan Of Treatment Medication Medication Name Sig Start Date Stop Date Notes Pantoprazole Sodium 40 MG 1 tablet Orall y Twice daily for 30 days 11/24/2023 Next Appt Details Provider Name:Glenn goss Jr, 09/03/2024 08:20:00 AM, [address] [place] [address], [phone], Progress Notes * ROBB PADRONDOB:1945 ( 79 yo M)Acc No.[id number]:05/30/2024 Patient:?ROBB PADRON :1945???Age:79 Y???Sex:Male Address:[address] [place] [address] * Refills? Refill Pantoprazole Sodium Tablet Delayed Release, 40 MG, Orally, 60, 1 tablet, Twice daily, 30 days, Refills=5 * true * Date:? Generated for Santosh dillard/Codie/eTransmitting on:?07/11/2024 11:41 AM EDT
--- OUTSIDE RECORDS SUMMARY | 2024-07-11 11:41 | XMS_ITS | Encounter Summary ---
Author Organization [employer] Address [address] [place] [address] Care Team Providers Care Test Worker Name Role Phone Clayton Lyon MD Primary Care Provide r Chris Leal MD Unavailable [phone] Encounter Details Date Type Department Care Team ([facility] Contact Info) Description 07/11/2024 Orders Only GENERIC EXTERNAL DATA DEPARTMENT Provider, Generic External Data Social History Tobacco Use Types Packs/Day Years [...] Upcoming Encounters Date Type Department Care Team ([facility] st Contact Info) Description 08/13/2024 9:15 AM EDT Office Visit [facility] [address] [place] [address] Clayton Lyon MD [address] [place] [address] documented as of this encounter Procedures Procedure Name Priority Date/Time Associated Diagnosis Comments SARS COV2/INFLUENZA A/B AND RSV RNA QL NAAT Routine 07/11/2024 10:04 AM EDT HOLD LT BLUE - POSSIBLE COAG Routine 07/11/2024 10:02 AM EDT documented in this encounter Results * SARS-CoV-2 RNA, Influenza A/B, and RSV RNA, Ql NAAT (07/11/2024 10:04 AM EDT) Influenza A PCR NEGATIVE Negative [facility] Influenza B PCR NEGATIVE Negative [facility] Resp Syncy Virus RNA Qual PCR NEGATIVE Negative [facility] SARS COV2 PCR NEGATIVE Negative [facility] Comment:All test results mus t be [...] use by authorized laboratories.Testing performed on the [employer] GeneXpert utilizingreal-time RT-PCR.All SARS CoV2 and positive influenza A/B results arereported to [facility]. 07/11/2024 10:0 4 AM EDT 07/11/2024 10:09 AM EDT Generic External Data Provider LAB MICROBIOLOGY - GENERAL ORDERABLES Final Result Performing Organization Address [facility]/ZIP Co de Phone Number [facility] [address] [place] [address] [phone] * HOLD LT BLUE - POSSIBLE COAG (07/11/2024 10:02 AM EDT) Hold Lt Blue - Possible Coag SEE NOTE [facility] Comment:Specimen will be hel d untested for 4 hours. Call Hematologyif testing is desired. 07/11/2024 10:0 2 AM EDT 07/11/2024 10:10 AM EDT Generic External Data Provider LAB BLOOD ORDERAB LES Final Result Performing Organization Address [facility] Co de Phone Number [facility] [address] [place] [phone] documented in this encounter Visit Diagnoses Not on filedocumented in this encounter Additional Health Concerns Assessment Noted Time PHQ-9 Depression Total Score: 0 12/12/19 24 10:28 AM EDT documented as of this encounter Care Teams Test Worker Relationship Specialty Start Date End Date Clayton Lyon MD [address] [place] [address] PCP - General Internal Medicine 11/12/13 Chris Leal MD [address] [place] [phone] Cardiology 07/10/24 [facility] 08/18/21 documented as of this encounter
--- OUTSIDE RECORDS SUMMARY | 2024-07-11 11:41 | XMS_ITS | Encounter Summary ---
Author Organization [employer] Address [address] [place] [address] Care Team Providers Care Boat Garnisher Name Role Phone Clayton Lyon MD Primary Care Provide r Chris Leal MD Unavailable [phone] Reason for Visit * Reason Onset Date Comments Faxed 07/10/2024 Encounter Details Date Type Department Care Team ([facility] Contact Info) Description 07/10/[address] [facility] MEDICINE [address] [place] [address] Danielle West [place] Faxed Social History Tobacco Use Types Packs/Day Years [...] encounter Miscellaneous Notes * Telephone Encounter - Danielle West [place] - 07/10/2024 10:17 AM EDT Lab records faxed to Dr. Leal office documented in this encounter Plan of Treatment Upcoming Encounters Date Type Department Care Team (Late st Contact Info) Description 08/13/2024 9:15 AM EDT Office Visit [facility] MEDICINE [address] [place] [address] Clayton Lyon MD [address] [place] [address] documented as of this encounter Visit Diagnoses Not on filedocumented in this encounter Additional Health Concerns Assessment Noted Time PHQ-9 Depression Total Score: 0 12/12/19 24 10:28 AM EDT documented as of this encounter Care Teams Boat Garnisher Relationship Specialty Start Date End Date Clayton Lyon MD [address] [place] [address] PCP - General Internal Medicine 11/12/13 Chris Leal MD [address] [place] [address] Cardiology 07/10/24 [facility] 08/18/21 documented as of this encounter
--- OUTSIDE RECORDS SUMMARY | 2024-07-11 11:42 | XMS_ITS | Encounter Summary ---
Author Organization [facility] Address [address] [place] [address] 7t [place] [address] Care Team Providers Care Special Education Paraprofessional Name Role Phone Clayton Lyon MD Primary Care Provide r Chris Leal MD Unavailable [phone] Encounter Details Date Type Department Care Team (Latest Contact Info) Description 10/16/2020 Abstract [facility] CONVERSIONS Dental, Provider, DDS Social History Tobacco [...] Description 08/13/2024 9:15 AM EDT Office Visit [facility] MEDICINE [address] [place] [address] Clayton Lyon MD [address] [place] [address] documented as of this encounter Visit Diagnoses Not on filedocumented in this encounter Care Teams Special Education Paraprofessional Relationship Specialty Start Date End Date Clayton Lyon MD [address] [place] [address] PCP - General Internal Medicine 11/12/13 Chris Leal MD [address] [place] [address] Cardiology 07/10/24 [facility] 08/18/21 documented as of this encounter
--- OUTSIDE RECORDS SUMMARY | 2024-07-11 11:42 | XMS_ITS | Encounter Summary ---
Author Organization [employer] Address [address] 7[address] [place] [address] Care Team Providers Care Warble Saw Operator Name Role Phone Clayton Lyon MD Primary Care Provide r Chris Leal MD Unavailable [phone] Reason for Visit * Reason Onset Date Comments ER Follow-up 08/31/2023 Encounter Details Date Type Department Care Team ([facility] st Contact Info) Description 08/31/2023 Telephone [facility] MEDICINE [address] [place], [place] [phone] Clayton Lyon MD [address] [place], [place] [phone] ER Follow-up Social History Tobacco Use Types [...] ED visit on : Date: 09/18/23 Hospital: [facility] Seen for: fall Patient advised will forward to team nurse for follow up documented in this encounter Plan of Treatment Upcoming Encounters Date Type Department Care Team (Late st Contact Info) Description 08/13/2024 9:15 AM EDT Office Visit [facility] MEDICINE [address] [place] [address] Clayton Lyon MD [address] [place] [address] documented as of this encounter Visit Diagnoses Not on filedocumented in this encounter Care Teams Warble Saw Operator Relationship Specialty Start Date End Date Clayton Lyon MD [address] [place] [address] PCP - General Internal Medicine 11/12/13 Chris Leal MD [address] [place] [address] Cardiology 07/10/24 [facility] 08/18/21 documented as of this encounter
--- OUTSIDE RECORDS SUMMARY | 2024-07-11 11:42 | XMS_ITS | Clinical Summary ---
Author Organization [facility] Address [address] [place] [address] Care Team Providers Care Truck And Transport Mechanic Name Role Phone Clayton Chavez MD Primary [...] age to complete this topic Care Teams Truck And Transport Mechanic Relationship Specialty Start Date End Date Clayton Chavez MD [address] [place] [address] [place] [address] PCP - General Internal Medicine 06/26/14
--- OUTSIDE RECORDS SUMMARY | 2024-07-11 11:42 | XMS_ITS ---
Author Organization [facility] Address [address] [place] [address] Care Team Providers Care Shipsmith Name Role Phone Dawson Millard MD, Clayton [...] Problem Status W/U Status Risk Notes Problem 216286546 Diverticulitis (K57.92) Active confirmed Problem [id number] watermaster (curre nt) use of anticoagulants (Z79.01) Active confirmed Vital Signs Temperature 97.5 degrees Fahrenheit 07/09/19 25 Blood pressure systolic 001 mm Hg 07/09/19 25 Blood pressure diastolic 01 mm Hg 025 Height 67 in 07/08/2024 Weight 160 lbs 07/08/2024 BMI 25.06 kg/m2 07/08/2024 Encounters Encounter Location Date Provider Diagnosis [facility] [address] [place] [address] 07/08/2024 Glenn Monroy Jr Diverticulitis K57.92 and residential (current) use of anticoagulants Z79.01 Assessments Encounter Date Diagnosis (ICD Code) Assessment Notes Treatment Notes Treatment Clinical Notes Section Notes 07/08/2024 Diverticulitis (ICD-10 - K57.92) Diverticulosis material was printed We discussed diverticulitis today. We discussed a high-fiber diet. We recommended follow-up with colonoscopy. This will be arranged at his convenience. He is advised to stop Eliquis 3 days before the procedure. 07/08/2024 residential (current) use of anticoagulants (ICD-10 - Z79.01) [...] Provider Name:Glenn goss Jr, 09/03/2024 08:20:00 AM, [address] [place] [address] , [place], [place], [phone], Progress Notes * WENDY PADRON:1945 ( 79 yo M)Acc No.[id number]:07/08/2024 Progress Notes Patient:ROBB QUINTANILLA Provider:?Glenn Monroy MD :1945???Age:79 Y???Sex:Male Booker e:07/08/2024 Address:[address] [place] [address] [facility] Pcp:Clayton valdovinos MD Subjective: * Chief Complaints: [...] Assessment: * Assessment: 1.?Diverticulitis - K57.92 ( Primary)???2.?residential (current) use of anticoagulants - Z79.01??? We [...] MD Date:?0 07/08/2024 Generated for Santosh dillard/Codie/eTransmitting on:?07/11/2024 11:41 AM EDT History and Physical Notes * HPI [...]
--- OUTSIDE RECORDS SUMMARY | 2024-07-11 11:42 | XMS_ITS | Encounter Summary ---
Author Organization [employer] Address [address] 7[address] [place] [address] Care Team Providers Care Forest Fire Warden Name Role Phone Clayton Lyon MD Primary Care Provide r Encounter Details Date Type Department Care Team ([facility] st Contact Info) Description 07/08/2024 Telephone [facility] MEDICINE [address] [place], [place] [phone] Clayton Lyon MD [address] [place], [place] [phone] Social History Tobacco Use Types Packs/Day Years [...] encounter Miscellaneous Notes * Telephone Encounter - Yenni Bird RN - 07/09/2024 10:54 AM EDT See message below. DME script generated and to be left on provider desk by Walk In Vehicle Service Agent for signature. Pt walked in requesting dme for bed rails * Telephone Encounter - Nakia Carnes - 07/08/2024 2:38 PM EDT Pt walked in requesting dme for bed rails documented in this encounter Plan of Treatment Upcoming Encounters Date Type Department Care Team (Late st Contact Info) Description 08/13/2024 9:15 AM EDT Office Visit [facility] MEDICINE [address] [place] [address] Clayton Lyon MD [address] [place] [address] documented as of this encounter Visit Diagnoses Not on filedocumented in this encounter Additional Health Concerns Assessment Noted Time PHQ-9 Depression Total Score: 0 12/12/19 24 10:28 AM EDT documented as of this encounter Care Teams Forest Fire Warden Relationship Specialty Start Date End Date Clayton Lyon MD [address] [place] [address] PCP - General Internal Medicine 11/12/13 [facility] 08/18/21 documented as of this encounter
--- OUTSIDE RECORDS SUMMARY | 2024-07-11 11:42 | XMS_ITS | Data Portability ---
Author Organization [employer] Address [address] [place] [address] Care Team Providers Care Lean Engineer Name Role Phone HIM CCA OTHER Assessment [...] been taking tylenol and occasional oxycodone. VSS. Extension Service Specialist on site reports bruising over the shoulder, [...] Name and Address Organization Details Recorded Time 82191 lisinopri l medicatio n Not available Not available Not available 06/12/2024 01815 RxNorm Not Available [facility] - production 13:30:19 88306 gabapenti n medicatio n Not available Not available Not available 06/12/2024 48479 RxNorm Not Available [facility] - [employer] 5 13:30:19 55313 Xanax medicatio n Not available Not available Not available 06/12/202406620 3 RxNorm Harriett Cortez MD [address] [place] [address],[address], [place], [address], [email or web address] 5 14:56:19 76589 oxycodone medicatio n Not available Not available Not available 06/12/2024 7804 RxNorm Harriett Cortez MD [address] [place] [address],[address], [place], [address], [email or web address] 5 14:56:24 65779 acetamino phen / oxycodone medicatio n Not available Not available Not available 06/12/2024 58970 3 RxNorm Not Available [employer] - production 15:37:05 Medications Name Sig Start [...] /min 132 mm[Hg] 80 mm[Hg] Not Available [employer] 4 12:49:57 Date Recorded Respiratory rate Oxygen saturation Oxygen saturation in Arterial blood by Pulse oximetry Heart rate Body temperature Systolic blood pressure Diastolic blood pressure Provider Name and Address Organization Details Last Updated DateTime 5 18 /min 96 % 96 % 63 /min 98.6 [degF] 145 mm[Hg] 96 mm[Hg] Not Available [employer] 5 14:47:09 Social History None recorded. Functional Status None recorded. Mental Status None recorded. Family History Nothing Reported. Medical History No medical history recorded. Past Encounters Encounter ID Performer Location Encounter Start Date Encounter Closed Date Diagnosis/Indication Diagnosis SNOMED-CT Code Diagnosis ICD10 Code Diagnosis Note [id number] Destiny Patel MD Main - [facility] [address] [place] [phone] 09/01/2023 12:46:34 11/21/2023 14:15:14 Muscle pain 38538368 M79.10 [id number] [facility]ez [facility] [address] [place] [phone] 06/12/2024 14:44:38 06/12/2024 22:02:59 Hypertensive disorder [id number] I10 Evaluation in the field was performed by my grocery supervisor colleague, as noted above, I provided real-time direction and supervisio n for this visit.This is a 79yo M with PMHx HTN seen at [facility] ED 05/25 for headache, dizziness, and nausea [...] Leblanc Member ID Guarantor Name 09/01/2023 1 [facility] - DOS ON OR AFTER 2022 - DUAL ELIGIBLE - INTERMEDIATE OPTIONS AND ONE CARE (MEDICARE REPLACEMENT/ADV ANTAGE - HMO) Shelton Davis [id number] Shelton Davis 06/12/2024 1 [facility] - DOS ON OR AFTER 2022 - DUAL ELIGIBLE - INTERMEDIATE OPTIONS AND ONE CARE (MEDICARE REPLACEMENT/ADV ANTAGE - HMO) Shelton Davis [id number] Shelton Davis Notes Date Note Type Note Provider Name and Address Organization Details Recorded Time 09/01/2023 text/html HPI: ROSSY is a very pleasant 78 Divehi speaking y/o male with a PMH of, [...] but no open wounds. ROSSY presented to [facility] on the day of [...] do so. MBR can be reached at [phone]. .................. .................. .................. .................. .................. .................. .................. ............... CRC Nurse Triage Notes (Rosy Corona): Comments: CRC RN did not require any additional information to process this visit. .................. .................. .................. .................. .................. .................. .................. ............... Extension Service Specialist Note From Hitesh Araiza: Dispatched to the [...] ............... Disposition: Fallon Destiny Patel MD [address] [facility] [facility],[address], [place], [address], [employer] 11/20/2023 19:41:13 06/12/2024 text/html CRC Nurse Triage [...] at this time. Went to ER at [facility] on 05/25. Currently taking Metoprolol daily. Hemp Fiber Taker Off instructed patient to increase dose to 2 tablets daily. Denies chest pain. Education provided on the response time and the member was advised to monitor reported s/s and seek emergency treatment if needed. .................. .................. .................. .................. .................. .................. .................. ............... Extension Service Specialist Note From Nadine Bennett: Sent to a call for a pt complaining of hypertension. SC8 arrives on scene, pt is alert and oriented, airway is patent. Pt complains of hypertension along with the following intermittent symptoms since 05/25: headache, feeling off balance, sob, and nausea. Pt denies cp, vomiting, diarrhea, abd pain, fever, or loc. Pt states he was evaluated at [facility] ED on 05/25 and by Hemp Fiber Taker Off on 06/07. Pt states his Metoprolol dosage was increased from 25mg to 50mg PO. (sitting) BP:145/96, P:63, RR:18, SpO2:96% RA, T:98.6; (standing) BP:147/101, P:63; Head: unremarkable; Lung sounds: clear bilaterally; Abdomen: soft, non-tender, no distention; Back: unremarkable; Extremities: unremarkable; Skin: pink, warm, dry; Pt requests transport to [facility] ED for re-evaluation. [facility] contacted and advised of pt's wishes. 911 called; Pt care transferred to [facility] Dept. .................. .................. .................. .................. .................. .................. .................. ............... [facility] Consulted: Harriett Cortez .................. .................. .................. .................. .................. .................. .................. ............... Disposition: Fulfilled Harriett Cortez MD [address] [facility] [facility],[address], [place], [address], [employer]TER - [employer] Technology[employer] RANGEL 06/12/2024 15:48:07
--- OUTSIDE RECORDS SUMMARY | 2024-07-11 11:42 | XMS_ITS | Encounter Summary ---
Author Organization [employer] Address [address] 7t [place] [address] Care Team Providers Care Insole Rounder Name Role Phone Clayton Lyon MD Primary Care Provide r Chris Leal MD Unavailable [phone] Reason for Visit * Reason Onset Date Comments Hospital Follow-up 06/20/2024 Encounter Details Date Type Department Care Team ([facility] st Contact Info) Description 06/20/2024 Telephone [facility] MEDICINE [address] [place], [place] [phone] Clayton Lyon MD [address] [place], [place] [phone] Hospital Follow-up Social History Tobacco Use Types [...] EDT Tc from pt returning phone call. [phone] * Telephone Encounter - Jade Zaidi - 06/20/2024 9:42 AM EDT Tc from pt requesting a F appt. Hospital: [facility] Date of admission: 06/15/2024 Discharge date: 06/19/2024 Diagnosed: Cardiomyopathy heart working 20 % severe heart failure Atrial fibrillation with RVR Pneumonia Diverticulitis *Send message to [place] Clinical Care Coordinators documented in this encounter Plan of Treatment Upcoming Encounters Date Type Department Care Team (Late st Contact Info) Description 08/13/2024 9:15 AM EDT Office Visit [facility] MEDICINE [address] [place] [address] Clayton Lyon MD [address] [place] [address] documented as of this encounter Visit Diagnoses Not on filedocumented in this encounter Additional Health Concerns Assessment Noted Time PHQ-9 Depression Total Score: 0 12/12/19 24 10:28 AM EDT documented as of this encounter Care Teams Insole Rounder Relationship Specialty Start Date End Date Clayton Lyon MD [address] [place] [address] PCP - General Internal Medicine 11/12/13 Chris Leal MD [address] [place] [address] Cardiology 07/10/[address] [facility] 08/18/21 documented as of this encounter
--- OUTSIDE RECORDS SUMMARY | 2024-07-11 11:42 | XMS_ITS | Encounter Summary ---
Author Organization [facility] Address [address] [place] [address] 7 [place] [address] Care Team Providers Care Chip Silo Tender Name Role Phone Clayton Lyon MD Primary Care Provide r Chris Leal MD Unavailable [phone] Encounter Details Date Type Department Care Team (Late st Contact Info) Description 03/07/2022 [facility] Health Information Management [address] [place], [place] [phone] Clayton Lyon MD [address] [place], [place] [phone] Social History Tobacco Use Types Packs/Day Years [...] Description 08/13/2024 9:15 AM EDT Office Visit [facility] MEDICINE [address] [place], [place] [phone] Clayton Lyon MD [address] [place], [place] [phone] documented as of this encounter Procedures Procedure Name Priority Date/Time Associated Diagnosis Comments PSA, TOTAL Routine 12/05/2022 11:19 AM EDT STREP A NUCLEIC ACID Routine 05/30/2022 11:58 AM EST SARS COV2/INFLUENZA A/B AND RSV RNA QL NAAT Routine 05/30/2022 11:58 AM EST documented in this encounter Results * PSA,Total (12/05/2022 11:19 AM EDT) Prostate Specific Antigen 0.50 <0.05 - 4.0 ng/mL [facility] Comment:PSA methodology: Abb yong Aliemelity i ChemiluminescentMicroparticle Immunoassay (CMIA) 12/05/2022 11:1 9 AM EDT 12/05/2022 11:19 AM EDT [employer] External Provider LAB BLO OD ORDERABLES Final Result Performing Organization Address City/State/RUST Co de Phone Number [facility] [address] [place] [phone] * SARS-CoV-2 RNA, Influenza A/B, and RSV RNA, Ql NAAT (05/30/2022 11:58 AM EST) Influenza A PCR NEGATIVE Negative [facility] Influenza B PCR NEGATIVE Negative [facility] Resp Syncy Virus RNA Qual PCR NEGATIVE Negative [facility] SARS COV2 PCR NEGATIVE Negative [facility] SARS/Flu/RSV Note See Note [facility] Comment:All test results mus t [...] use by authorized laboratories.Testing performed on the A V.E.T.S.c.a.r.e. GeneXpert utilizingreal-time RT-PCR.All SARS CoV2 and positive influenza A/B results arereported to [facility]. 05/30/2022 11:5 8 AM EST 05/30/2022 12:03 PM EST [employer] Exter nal Provider LAB MICROBIOLOGY - GENERAL ORDERABLES Final Result Performing Organization Address [facility] de Phone Number [facility] [address] [place] [address] [phone] * Strep A Nucleic Acid (05/30/2022 11:58 AM EST) [employer]NOW SERIAL# [id number] [facility] Strep A Nucleic Acid Negative Negative [facility] Comment:All test results mus t be correlated with clinical findings.This test has not been evaluated for monitoring treatment ofinfection.Additional follow-up testing using the culture method isrequired if the result is negative and clinical symptomspersist, or in the event of an acute rheumatic feveroutbreak. 05/30/2022 11:5 8 AM EST 05/30/2022 12:03 PM EST [employer] Exter nal Provider LAB MICROBIOLOGY - GENERAL ORDERABLES Final Result Performing Organization Address [facility] Phone Number [facility] [address] [place] [address] [phone] documented in this encounter Visit Diagnoses Not on filedocumented in this encounter Care Teams Chip Silo Tender Relationship Specialty Start Date End Date Clayton Lyon MD [address] [place] [address] PCP - General Internal Medicine 11/12/13 Chris Leal MD [address] [place] [address] Cardiology 07/10/[address] [facility] 08/18/21 documented as of this encounter
--- OUTSIDE RECORDS SUMMARY | 2024-07-11 11:42 | XMS_ITS | Patient Health Record ---
Author Organization [facility] Address [address] [place] [address] Care Team Providers Care Stitchdown Thread Laster Name Role Phone Dawson Millard MD, [...] Blood Reviewed date:09/22/2023 03:04:56 PM Interpretation: Performing Lab:[facility], [address] [place] [id number] Notes/Report: Glucose, Whole Blood 106 60-115 mg/dL METER # : [id number] Pathology Reviewed date:10/05/2023 11:07:51 AM Interpretation: Performing Lab:[facility], [address] [place] [phone] Notes/Report: ------ Name: Robb Padron e/Sex: 78/M : 1945 Unit#: [id number] Attend Dr: Glenn Monroy MD Re09/22/23 Status : [facility] Location: [facility] Disch: ------ SPEC : [id number] RECD : 09/22/23 STATUS: VINOD BUSH NUM: [id number] GLORIA: 09/22/[address] [facility] [address]: Glenn Monroy MD ENTERED: 09/22/23 [...] Robb Padron e/Sex: 78/M : 1945 Unit#: [id number] Attend Dr: Glenn Monroy MD Re09/22/23 Status : [facility] Location: [facility] Disch: ------ SPEC : [id number] RECD : 09/22/23 STATUS: VINOD BUSH NUM: [id number] GLORIA: 09/22/[address] [facility] [address]: Glenn Monroy MD ENTERED: 09/22/23 SP TYPE: Surgical OTHR DR: Clayton Chavez MD ORDERED: HE Stain/6, Gross Micro L4/3, IHC, Special st. 2/3, H. pylori, AB/PAS/3 Copies To: Glenn Monroy MD [facility] [address] [place] [address] Vangie Chavez MD [address] [address] ------ Signed (signature on file) Farida [place] 09/25/23 1719 ------ END OF REPORT Reason [...] Problem Status W/U Status Risk Notes Problem 870038408 Colon cancer screening (Z12.11) Active confirmed Problem 23247207 Epigastric pain (R10.13) Active confirmed Problem Gastro-esophage al reflux disease without esophagitis (566862816) Gastro-esophageal reflux disease without esophagitis (K21.9) Active confirmed Problem 553194846 shelter (curre nt) use of anticoagulants (Z79.01) Active confirmed Problem 660241876 Personal history of colonic polyps (Z86.010) Active confirmed Problem 487837721 Irritable bowel syndrome with diarrhea (K58.0) Active confirmed Problem 549776723 Generalized abdominal pain (R10.84) Active confirmed Problem 259385150 Diverticulitis (K57.92) Active confirmed Problem 402382333 Gastroesophageal reflux disease without esophagitis (K21.9) Active confirmed Problem History of polyp of colon (415331659) History of colon polyps (Z86.010) Active confirmed Problem 687587070 Gastroesophageal reflux disease with esophagitis without hemorrhage (K21.00) Active confirmed Vital Signs Temperature 97.5 degrees Fahrenheit 07/08/2024 Blood pressure diastolic 01 mm Hg 07/08/2024 Height 67 in 07/08/2024 Blood pressure systolic 001 mm Hg 07/08/2024 Weight 160 lbs 07/08/2024 BMI 25.06 kg/m2 07/08/2024 Encounters Encounter Location Date Provider Diagnosis [facility] [address] [place] [id number] 09/22/2023 Glenn Monroy Jr Gastro-esophageal reflux disease without esophagitis K21.9 [facility] [address] [place] [address] 08/14/2023 Glenn Monroy Jr Gastroesophageal reflux disease without esophagitis K21.9 and Irritable bowel syndrome with diarrhea K58.0 [facility] [address] [place] [address] 07/08/2024 Glenn Monroy Jr Diverticulitis K57.92 and shelter (current) use of anticoagulants Z79.01 [facility] [address] [facility] [place] [address] 09/18/2023 Glenn Monroy Jr [facility] [address] [facility] [place] [address] 09/20/2023 Glenn Monroy Jr [facility] [address] [facility] [place] [address] 10/05/2023 Glenn Monroy Jr [facility] [address] [place], [place] [address], [place] [address] 11/24/2023 Glenn Monroy Jr Gastroesophageal reflux disease without esophagitis K21.9 [facility] [address] [facility] [place] [address] 11/28/2023 Glenn Monroy Jr [facility] [address] [place] [address] [address] 05/30/2024 Glenn Monroy Jr [facility] [address] [place] [address] [address] 07/08/2024 Glenn Monroy Jr Assessments Encounter Date Diagnosis [...] control and he will continue dicyclomine. 07/08/2024 shelter (current) use of anticoagulants (ICD-10 - Z79.01) [...] Provider Name:Glenn goss , 09/03/2024 08:20:00 AM, [address] [place] [address] , [place], [place], [phone], Insurance Providers Payer Name Payer Address Payer Phone Subscriber Number Group Number Insured Name Patient Relationship to Insured Coverage Start Date Coverage End Date [facility] [address] Attn Claims CIPRIANO Julio [id number] ROBB PADRON Self - patient is the [...]
[2024-07-11] MEDS: Morphine Sulfate 2 MG/ML CARTRIDGE IVPUSH (13:57)
[2024-07-11] MEDS: ondansetron HCL 4 MG/2 ML VIAL IVPUSH (13:57)
--- NOTE | 2024-07-11 14:39 | PHA.MEDREC ---
Pharmacy Consult ? Medication Reconciliation Pharmacy has completed the medication reconciliation. Spoke to patient with reliability technologist who states to call his daughter Mono at [phone]. I called patients daughter and utilized pharmacy's reliability technologist to obtain medication list. Carolamberpb was able to confirm patient no longer takes valsartan or ASA, and patient has just started Jardiance, Entresto and Verguvo .
--- NOTE | 2024-07-11 15:47 | PM.IMHP ---
History of Present Illness Date of Service: 07/11/24 Chief Complaint: syncope A 79 years old malaysian speaking male with PMH of asthma, CVA, DM, non-ishemic cardiomyopathy, fibromyalgia, BPH, erectile dysfunction, GERD, migraines, and hemorrhoids presenting with syncopal episode at home. He reports waking up this morning and going to eat something before taking his morning pills when he felt lightheaded and nauseated. he tried to sit down but became too weak and syncopized falling backward on his back. No chest pain, palpitations, SOB, diarrhea or urinary symptoms. No head injury, fever or chills. reporting pain in his back and abdomen after the fall. He reports lightheadedness upon standing up at home which has been worsening over the last couple weeks. 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 CT head and spine negative. orthostatic vitals reported stable. will be admitted for further work up and treatment. Review of Systems Review of Systems: No fever, chills but has gen weakness No chest pain, palpitation No shortness of breath or coughing No abdominal pain, mild nausea or vomiting No urinary symptoms No any rash or wounds PMFSH Medical History Weak urinary stream Erectile dysfunction Bleeding hemorrhoids Diabetes mellitus Arteriosclerosis Cancer Pulmonary nodule Non-ischemic cardiomyopathy CVA (cerebral vascular accident) Arthritis Asthma GERD (gastroesophageal reflux disease) Elevated cholesterol Diastolic dysfunction Family History Father Prostate cancer Mother Parkinson disease Surgical History Hx of transurethral resection of prostate History of esophagogastroduodenoscopy (EGD) H/O colonoscopy Hx of cataract extraction History of ankle surgery History of surgical removal of skin lesion History of hemorrhoidectomy History of appendectomy Social History Household Members: Children and Other Household Members Other:: two grandchild Housing: Apartment Do you presently have visiting nurse or other home services: Yes Alcohol intake: former Patient Tobacco Use Status: Former Tobacco user Second Hand Smoke Exposure: No Advance Directives: No Advance Directives Information Provided: Yes Do you have a plan to hurt others: No Plan service: No Meds Allergies Allergy/AdvReac Type Severity Reaction Status Date / Time lisinopril [LISINOPRIL] Allergy Intermediate COUGH Verified 07/11/24 09:43 oxycodone [From PERCOCET] Allergy Intermediate VOMITING Verified 07/11/24 09:43 alprazolam [From XANAX] AdvReac Intermediate VOMITING Verified 07/11/24 09:43 gabapentin AdvReac Abdominal Verified 07/11/24 09:43 Pain Home Medications ?Medication ?Instructions ?Recorded ?Confirmed ?Last Taken ?Type amitriptyline 25 mg tablet 25 mg PO BEDTIME 01/28/20 07/11/24 09/21/23 History albuterol sulfate 2.5 mg/3 mL 2.5 mg inhalation QID PRN Wheezing 06/11/20 07/11/24 Unknown History (0.083 %) solution for nebulization atorvastatin 80 mg tablet 80 mg PO DAILY 06/11/20 07/11/24 2 Weeks Ago History ~06/01/24 multivitamin 1 tab PO DAILY 06/11/20 07/11/24 2 Weeks Ago History ~06/01/24 albuterol sulfate 90 mcg/actuation 2 puff inhalation Q6H PRN Wheezing 11/13/20 07/11/24 Unknown History aerosol inhaler (Ventolin HFA) blood sugar diagnostic (FreeStyle #10 ea 06/15/21 12/20/22 Unknown History Lite Strips) lancets 33 gauge (TRUEplus Lancets) #100 ea 06/15/21 12/20/22 Unknown History pantoprazole 40 mg tablet,delayed 40 mg PO DAILY@0630 06/15/24 07/11/24 2 Weeks Ago History release ~06/01/24 sumatriptan succinate 50 mg tablet 50 mg PO Q2H PRN Migraine Headache 06/15/24 07/11/24 Unknown History empagliflozin 10 mg tablet 10 mg PO DAILY 07/11/24 07/11/24 Unknown History (Jardiance) metoprolol tartrate 25 mg tablet 25 mg PO BEDTIME 07/11/24 07/11/24 Unknown History metoprolol tartrate 50 mg tablet 50 mg PO DAILY@0800 07/11/24 07/11/24 Unknown History sacubitril 24 mg-valsartan 26 mg 1 tab PO BID 07/11/24 07/11/24 Unknown History tablet (Entresto) vericiguat 2.5 mg tablet (Verquvo) 2.5 mg PO DAILY 07/11/24 07/11/24 Unknown History Physical Exam Vital Signs and Narrative: Vital Signs: Last Vital Signs Temp 97.2 F 07/11/24 12:32 Pulse 69 07/11/24 14:00 Resp 16 07/11/24 14:00 BP 135/86 07/11/24 14:00 Pulse Ox 95 07/11/24 14:00 O2 Del Method Room Air 07/11/24 14:00 BMI result Body Mass Index 25.8 Const: Other: Constitutional : Awake, interactive, not in distress Neck : Normal inspection, Supple Cardiovascular : irregular irregular, no JVP, no lower extremity edema Respiratory : good bilateral air entry, no crackles, wheezes or rhonchi Gastrointestinal: soft, lax, Normal bowel sounds, no tenderness with no surgical signs Skin : Warm, Dry Neurological : Alert & oriented x3, No focal deficit Results Labs 07/11/24 10:02 07/11/24 10:02 Labs: Laboratory Results - last 24 hr 07/11/24 07/11/24 10:02 10:04 MCV 94.8 MCH 32.3 MCHC 34.1 RDW 12.7 Plt Count 220 MPV 10.3 Immature Gran % (Auto) 0.4 Neut % (Auto) 60.1 Lymph % (Auto) 32.4 Sierra % (Auto) 6.0 Eos % (Auto) 0.9 Baso % (Auto) 0.2 Lymph # (Auto) 2.8 Sierra # (Auto) 0.5 Eos # (Auto) 0.1 Baso # (Auto) 0.0 Abs Immat Gran (auto) 0.03 Absolute Neuts (auto) 5.1 Absolute Nucleated RBC 0.000 Nucleated RBC % (auto) 0.0 Hold Blue Top SEE NOTE Anion Gap 13 Estim Creat Clear Calc 66.1 Estimated GFR > 60 Random Glucose 163 H Calcium 9.5 Total Bilirubin 0.9 AST 33 ALT 29 Alkaline Phosphatase 82 B-Natriuretic Peptide 228 H Total Protein 7.0 Albumin 4.0 Influenza Type A (PCR) NEGATIVE Influenza Type B (PCR) NEGATIVE RSV RNA Qual (PCR) NEGATIVE SARS-CoV-2 RNA (RT-PCR) NEGATIVE Imaging Radiologist's Impressions: Impressions Cervical Spine CT 07/11/24 10:21 IMPRESSION: Multilevel cervical spondylosis without acute fracture or trauma-related listhesis. Fleischner guidelines were followed. Electronically signed by: Caleb Andrews MD 07/11/2024 12:07 PM EDT RP Head CT 07/11/24 10:21 IMPRESSION: No acute fracture, bony calvarium. No acute intracranial hemorrhage. Small vessel occlusive disease. Global cerebral atrophy. 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 Diverticular disease/diverticulosis, left hemicolon. Fleischner guidelines were followed. Electronically signed by: Caleb Adnrews MD 07/11/2024 11:59 AM EDT RP Assessment and Plan (1) Abdominal pain: Qualifiers: Abdominal location: unspecified location Qualified Code(s): R10.9 - Unspecified abdominal pain Status: Acute (2) Syncope and collapse: Status: Acute Plan A 79 years old malaysian speaking male with PMH of asthma, CVA, DM, non-ishemic cardiomyopathy, fibromyalgia, BPH, erectile dysfunction, GERD, migraines, and hemorrhoids presenting with syncopal episode at home. 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; check with Vascular surgery paroxysmal Afib rate controlled Metoprolol 50mg day, hold night dose for now continue Eliquis, Digoxin chronic systolic heart failure EF of 20% no hypoxia or edema gentle hydration for now Entresto, Jardiance Hx CVA Statin, Eliquis GERD PPI DVT PPx Eliquis The paitnet will need overnight hospital stay for treatment of Diverticulitis and Newly diagnosed Afib with RvR and Acute systolic CHF Quality Stroke Does the patient have a stroke diagnosis?: No VTE Prior VTE?: No VTE Risk Level:: Medical - low VTE Device Contraindication: Treatment Not Indicated VTE Drug Contraindication: N/A - Med Ordered
[2024-07-11] MEDS: Lactated Ringers 1,000 ML 100 ML IVCONT (17:04)
[2024-07-11] MEDS: 0.9 % Sodium Chloride Flush 3 ML SYRINGE IVFLUSH ×2 (17:05→20:04)
[2024-07-11] MEDS: Sacubitril/Valsartan 24/26 1 TAB TABLET PO (20:03)
[2024-07-11] MEDS: Apixaban 5 MG TABLET PO (20:03)
[2024-07-11] MEDS: Amitriptyline HCl 25 MG TABLET PO (20:03)
[2024-07-12] VITALS (11 sets, daily range): BP systolic 102–126; BP diastolic 68–81; PULSE 55–110; RESP 14–20; TEMP 36.3–36.9; O2SAT 95–98
[2024-07-12 06:48] LABS: MANUAL DIFF FLAG NO
[2024-07-12 07:02] LABS: Basophils Percent Auto 0.3 % (0-2); Eosinophils Absolute Auto 0.1 X10*3/uL (0.0-0.4); Eosinophils Percent Auto 1.9 % (0-4); Hematocrit 47.6 % (42.0-52.0); Hemoglobin 16.2 g/dl (14.0-18.0); Imm Gran Abs Auto 0.01 X10*3/uL (0.00-0.03); Imm Gran Pct Auto 0.1 % (0.0-0.4); Lymphocytes Absolute Auto 2.3 X10*3/uL (1.2-4.9); Lymphocytes Percent Auto 32.5 % (20-40); Mean Corpuscular Hemoglobin 32.4 pg (27.0-33.0); Mean Corpuscular Volume 95.2 fL (80.0-98.0); Monocytes Absolute Auto 0.7 X10*3/uL (0.1-1.2); Monocytes Percent Auto 9.4 % (2-11); Neutrophils Absolute Auto 3.9 x10*3/uL (2.0-8.3); Neutrophils Percent Auto 55.8 % (45-73); Platelet Count 211 X10*3/uL (160-400); Red Cell Distribution Width 12.9 % (11.0-16.0); White Blood Count 6.9 X10*3/uL (4.8-10.8)
[2024-07-12 07:14] LABS: Alanine Aminotransferase 23 U/L (0-40); Albumin Level 3.6 g/dL (3.5-5.0); Alkaline Phosphatase 79 U/L (39-117); Anion Gap 12 (12-20); Aspartate Amino Transferase 25 U/L (5-37); Bilirubin Total 0.8 mg/dL (0.0-1.0); Blood Urea Nitrogen 9 mg/dL (9-16); Carbon Dioxide 26 mmol/L (22-29); Chloride 106 mmol/L (96-108); Creatinine Clr Calc Pharmacy 75.4; Estimated Glomerular Filt Rate > 60; Glucose Random 122 mg/dL (60-115); Potassium 3.9 mmol/L (3.3-5.1); Sodium 140 mmol/L (135-145); Total Protein 6.4 g/dL (6.5-8.0)
[2024-07-12] MEDS: Atorvastatin Calcium 80 MG TABLET PO (08:42)
[2024-07-12] MEDS: Digoxin 0.125 MG TABLET PO (08:42)
[2024-07-12] MEDS: Apixaban 5 MG TABLET PO (08:42)
[2024-07-12] MEDS: Multivitamin TABLET 1 TAB PO (08:44)
[2024-07-12] MEDS: Metoprolol Tartrate 50 MG TABLET PO (08:56)
[2024-07-12] MEDS: 0.9 % Sodium Chloride Flush 3 ML SYRINGE IVFLUSH (09:00)
--- NOTE | 2024-07-12 09:30 | MHC.CM.PN ---
Addendum entered by Genesis Mcqueen 07/12/24 09:51: Per CCA, Patient is active with [facility] & has 15 BANK VAULT CUSTODIAN hours/week. Original Note: WILLIS addressed. Patient lives in an apartment with his Daughter and Granddaughter and he uses a walker to assist with mobility. Patient has a BANK VAULT CUSTODIAN and MAY be active with either [facility] or [facility](CM awaits confirmation from these agencies). Home/resume services is the Patient's goal and CM has initiated and will follow for dc planning. PCP is Dr. Chavez and Patient's BANK VAULT CUSTODIAN will transport to home.
[2024-07-12] MEDS: 0.9 % Sodium Chloride 500 ML IV (10:25)
--- NOTE | 2024-07-12 12:21 | PM.CNGS ---
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 The pt presented to the ER yesterday with nausea, vomiting, and abdominal pain with generalized weakness. He also states that he fell against a chair in a syncopal episode, hitting his right lower abdominal area. He has been seen several times over the last few weeks with diverticulitis and Afib with RVR. He has a medical hx pertinent for Afib with RVR on Eliquis, CVA, nonischemic cardiomyopathy with an EF of 15-20%, BPH, GERD, migraines, asthma, and pulmonary nodules. He was most recently seen for abd pain/nausea on 06/15, where the initial CT scan showed celiac artery compression syndrome. He denies abd pain, nausea, vomiting, shortness of breath, diff breathing, and CP. Review of Systems Constitutional: Constitutional: Reports as per HPI and Denies weakness ENT: Reports Normal hearing present and Denies dizziness Cardiovascular: Cardiovascular: Reports as per HPI, Denies chest pain, Denies chest pain at rest, Denies chest pain with activity, Denies dyspnea and Denies dyspnea on exertion Respiratory: Respiratory: Reports as per HPI, Denies cough, Denies dyspnea and Denies dyspnea on exertion Gastrointestinal: Gastrointestinal: Reports as per HPI, Denies abdominal pain, Denies nausea and Denies vomiting Musculoskeletal: Musculoskeletal: Denies numbness Integumentary/Breasts: Skin/Breast: Reports as per HPI, Denies erythema and Denies wounds Neurologic: Reports Normal hearing present, Denies dizziness, Denies numbness, Denies Sensory deficit (Neuro) and Denies weakness Psychiatric: Psychiatric: Reports no additional psychiatric complaints Endocrine: Endocrine: Reports no additional endocrine complaints PMFSH Past Medical History Medical History Weak urinary stream Erectile dysfunction Bleeding hemorrhoids Diabetes mellitus Arteriosclerosis Cancer Pulmonary nodule Non-ischemic cardiomyopathy CVA (cerebral vascular accident) Arthritis Asthma GERD (gastroesophageal reflux disease) Elevated cholesterol Diastolic dysfunction Family History Family History Father Prostate cancer Mother Parkinson disease Surgical History Surgical History Hx of transurethral resection of prostate History of esophagogastroduodenoscopy (EGD) H/O colonoscopy Hx of cataract extraction History of ankle surgery History of surgical removal of skin lesion History of hemorrhoidectomy History of appendectomy Social History Social History Household Members: Children and Other Household Members Other:: two grandchild Housing: Apartment Do you presently have visiting nurse or other home services: Yes Alcohol intake: former Patient Tobacco Use Status: Former Tobacco user Second Hand Smoke Exposure: No Currently Displaying Signs/Symptoms of Drug Intoxication Withdrawal: No Advance Directives: No Advance Directives Information Provided: Yes Do you have a plan to hurt others: No Plan service: No Meds Allergies Allergy/AdvReac Type Severity Reaction Status Date / Time lisinopril [LISINOPRIL] Allergy Intermediate COUGH Verified 07/11/24 09:43 oxycodone [From PERCOCET] Allergy Intermediate VOMITING Verified 07/11/24 09:43 alprazolam [From XANAX] AdvReac Intermediate VOMITING Verified 07/11/24 09:43 gabapentin AdvReac Abdominal Verified 07/11/24 09:43 Pain Active Medications: Current Medications Acetaminophen (Acetaminophen 325 Mg Tablet) 650 mg PO Q6H PRN PRN Reason: Pain, Mild 1-3,fever,headache Albuterol Sulfate (Albuterol Sulfate 90 Mcg 8 Gm Inhaler) 2 puff INHALE Q6H PRN PRN Reason: Wheezing Albuterol Sulfate (Albuterol Sulfate (0.083%) 2.5 Mg/3 Ml Vial.Neb) 2.5 mg INHALE QID PRN PRN Reason: Wheezing Apixaban (Apixaban 5 Mg Tablet) 5 mg PO BID [facility] Last Admin: 07/12/24 08:42 Dose: 5 mg Atorvastatin Calcium (Atorvastatin Calcium 80 Mg Tablet) 80 mg PO DAILY [facility] Last Admin: 07/12/24 08:42 Dose: 80 mg Calcium Carbonate (Calcium Carbonate 750 Mg Tab.Chew) 750 mg PO Q4H PRN PRN Reason: Heartburn Digoxin (Digoxin 0.125 Mg Tablet) 0.125 mg PO DAILY [facility]; Protocol Last Admin: 07/12/24 08:42 Dose: 0.125 mg Magnesium Hydroxide (Milk Of Magnesia 30 Ml Oral.Susp) 30 ml PO DAILY PRN PRN Reason: Constipation Melatonin (Melatonin 3 Mg Tablet) 6 mg PO BEDTIME PRN PRN Reason: Insomnia Metoprolol Tartrate (Metoprolol Tartrate 50 Mg Tablet) 50 mg PO DAILY@0800 [facility]; Protocol Last Admin: 07/12/24 08:56 Dose: 50 mg Metoprolol Tartrate (Metoprolol Tartrate 25 Mg Tablet) 25 mg PO BEDTIME [facility]; Protocol Multivitamins/Vitamin C (Multivitamin Tablet) 1 tab PO DAILY [facility] Last Admin: 07/12/24 08:44 Dose: 1 tab Non-Formulary Medication (Vericiguat [Verquvo]) 2.5 mg PO DAILY [facility] Ondansetron HCl (Ondansetron Hcl 4 Mg/2 Ml Vial) 4 mg IVPUSH Q8H PRN PRN Reason: Nausea and Vomiting Sodium Chloride (0.9 % Sodium Chloride Flush 3 Ml Syringe) 3 ml IVFLUSH QSHIFT [facility] Last Admin: 07/12/24 09:00 Dose: 3 ml Sumatriptan Succinate (Sumatriptan Succinate 50 Mg Tablet) 50 mg PO Q2H PRN PRN Reason: Migraine Headache Home Medications ?Medication ?Instructions ?Recorded ?Confirmed ?Last Taken ?Type amitriptyline 25 mg tablet 25 mg PO BEDTIME 01/28/20 07/11/24 09/21/23 History albuterol sulfate 2.5 mg/3 mL 2.5 mg inhalation QID PRN Wheezing 06/11/20 07/11/24 Unknown History (0.083 %) solution for nebulization atorvastatin 80 mg tablet 80 mg PO DAILY 06/11/20 07/11/24 2 Weeks Ago History ~06/01/24 multivitamin 1 tab PO DAILY 06/11/20 07/11/24 2 Weeks Ago History ~06/01/24 albuterol sulfate 90 mcg/actuation 2 puff inhalation Q6H PRN Wheezing 11/13/20 07/11/24 Unknown History aerosol inhaler (Ventolin HFA) blood sugar diagnostic (FreeStyle #10 ea 06/15/21 12/20/22 Unknown History Lite Strips) lancets 33 gauge (TRUEplus Lancets) #100 ea 06/15/21 12/20/22 Unknown History pantoprazole 40 mg tablet,delayed 40 mg PO DAILY@0630 06/15/24 07/11/24 2 Weeks Ago History release ~06/01/24 sumatriptan succinate 50 mg tablet 50 mg PO Q2H PRN Migraine Headache 06/15/24 07/11/24 Unknown History empagliflozin 10 mg tablet 10 mg PO DAILY 07/11/24 07/11/24 Unknown History (Jardiance) metoprolol tartrate 25 mg tablet 25 mg PO BEDTIME 07/11/24 07/11/24 Unknown History metoprolol tartrate 50 mg tablet 50 mg PO DAILY@0800 07/11/24 07/11/24 Unknown History vericiguat 2.5 mg tablet (Verquvo) 2.5 mg PO DAILY 07/11/24 07/11/24 Unknown History Physical Exam Vital Signs: Vital Signs: Last Vital Signs Temp 97.5 F 07/12/24 11:36 Pulse 69 07/12/24 11:36 Resp 16 07/12/24 11:36 BP 112/78 07/12/24 11:36 Pulse Ox 97 07/12/24 11:36 O2 Del Method Room Air 07/12/24 11:36 BMI result Body Mass Index 22.2 Const: General: comfortable and no acute distress Orientation/consciousness: patient oriented x3 HEENT: Ears: hearing grossly normal bilaterally Resp: Effort & Inspection: normal respiratory effort and able to speak in complete sentences Auscultation: clear to auscultation bilaterally Cardio: Rate: regular rate Rhythm: regular rhythm Heart sounds: S1 normal heart sound present and S2 normal heart sound present Bruits: no abdominal aortic bruits, no carotid bruits, no femoral bruits and no renal bruits GI: Palpation (GI): No Abdominal aortic bruit present Neuro: General: patient oriented x3 Cranial nerves: Yes Normal hearing present Sensory Exam: No Sensory deficit (Neuro) Results Labs 07/12/24 06:04 07/12/24 06:04 Labs: Abnormal lab results 07/12/24 Range/Units 06:04 Random Glucose 122 H (60-115) mg/dL Total Protein 6.4 L (6.5-8.0) g/dL Short CBC 07/12/24 Range/Units 06:04 WBC 6.9 (4.8-10.8) X10*3/uL Hgb 16.2 (14.0-18.0) g/dl Hct 47.6 (42.0-52.0) % Plt Count 211 (160-400) X10*3/uL BMP 07/12/24 07/12/24 07/12/24 06:04 06:04 06:04 Sodium 140 Cancelled Potassium 3.9 Cancelled Chloride 106 Carbon Dioxide BUN Creatinine Calcium 07/12/24 07/12/24 07/12/24 06:04 06:04 06:04 Sodium Potassium Chloride Cancelled Carbon Dioxide 26 Cancelled BUN 9 Cancelled Creatinine 0.78 Calcium 07/12/24 07/12/24 06:04 06:04 Sodium Potassium Chloride Carbon Dioxide BUN Creatinine Cancelled Calcium 9.0 Cancelled Liver Function 07/12/24 Range/Units 06:04 Total Bilirubin 0.8 (0.0-1.0) mg/dL AST 25 (5-37) U/L ALT 23 (0-40) U/L Alkaline Phosphatase 79 (39-117) U/L Albumin 3.6 (3.5-5.0) g/dL All other labs normal. Assessment and Plan (1) Celiac artery compression syndrome: Status: Acute Plan We were consulted for [place], for findings on CT of celiac artery compression syndrome. He presented to the ER with concerns of nausea/vomiting, dizziness, and syncopal episode. He has a hx of diverticulitis as well as Afib on Eliquis. He was found to have the celiac artery compression syndrome in May when he presented with similar symptoms. He remains asymptomatic today, he denies nausea, vomiting, abd pain, diff breathing, shortness of breath, and chest pain. There is no acute vascular surgical intervention at this point. We will continue to monitor. If there are any questions or concerns, please do not hesitate to reach out to us. Procedures Date of Service Date of Service: 07/14/24
--- NOTE | 2024-07-12 14:18 | MHC.CM.PN ---
Per MD, Patient is medically cleared for dc to home today, with services. Patient is active with [facility], who has been made aware of today's dc.
--- NOTE | 2024-07-12 14:58 | P.DS_ITS ---
DS: Providers Provider Date of Service: 07/12/24 Date of admission: 07/11/24 15:26 Date of discharge: 07/12/24 Primary care physician: Clayton Chavez MD Consults: 07/11/24 15:36 Consult to Vascular Surgery Routine Consulting Provider: [facility] Reason for consultation: Concerning celiac artery compression syndrome/median arcuate ligament synd DS: Diagnosis Discharge Diagnosis (1) Abdominal pain: Status: Acute (2) Syncope and collapse: Status: Acute (3) Orthostatic hypotension: Status: Acute DS: Summary Hospital Course Hospital Course: Admission note HPI A 79 years old urdu speaking male with PMH of asthma, CVA, DM, non-ishemic cardiomyopathy, fibromyalgia, BPH, erectile dysfunction, GERD, migraines, and hemorrhoids presenting with syncopal episode at home. He reports waking up this morning and going to eat something before taking his morning pills when he felt lightheaded and nauseated. he tried to sit down but became too weak and syncopized falling backward on his back. No chest pain, palpitations, SOB, diarrhea or urinary symptoms. No head injury, fever or chills. reporting pain in his back and abdomen after the fall. He reports lightheadedness upon standing up at home which has been worsening over the last couple weeks. 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 CT head and spine negative. orthostatic vitals reported stable. will be admitted for further work up and treatment. Hospital course The patient presented with reported dizziness and Syncope. EKG and Trop negative on presentation. CT head and neck negative. Orthostatic reported normal on presentation but tested positive on repeat with drop in BP, tachycardia and reporting dizziness. Improved with IV fluids bolus and Holding Metoprolol. He went breifly into Afib w RvR improved back to controlled rate. It seems he was started on Entresto recently but unclear if he was taking it alone, with ARB or only ARB. will hold all of these now. to monitor blood pressure at home with [facility] and follow with PCP as outpatient. He also reported Abdominal pain that resolved at time of admission. likely related to low BP event. 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 Vascular surgery evaluated the patient and recommended no intervention now. consider outpatient follow up as needed. Continue Metoprolol, Eliquis, Digoxin. Chronic systolic heart failure. EF of 20%. He has no hypoxia or edema. Will hold Entresto and keep on Jardiance as BP running low given his weight loss of 3 Kg. Discharge plan Stop Entresto Continue Metoprolol Drink large glass of water drinking water technician Monitor blood pressure readings at home 2 times a day (sitting and standing) and record the readings to discuss with PCP for further adjutment of blood pressure medicaitons if needed. Time Attestation Discharge Coordination Time (in mins): 27 Quality: Safe Use of Opioids Does Pt have an Active Cancer Diagnosis on the Problem List?: No Quality: Stroke Does the patient have a stroke diagnosis?: No Physical Exam Vital Signs: Vital Signs: Last Vital Signs Temp 97.5 F 07/12/24 11:36 Pulse 59 07/12/24 13:22 Resp 16 07/12/24 11:36 BP 118/72 07/12/24 13:22 Pulse Ox 97 07/12/24 11:36 O2 Del Method Room Air 07/12/24 11:36 BMI result Body Mass Index 22.2 Const: Other: Constitutional : Awake, interactive, not in distress Neck : Normal inspection, Supple Cardiovascular : irregular irregular, no JVP, no lower extremity edema Respiratory : good bilateral air entry, no crackles, wheezes or rhonchi Gastrointestinal: soft, lax, Normal bowel sounds, no tenderness with no surgical signs Skin : Warm, Dry Neurological : Alert & oriented x3, No focal deficit DS: Data Data Completed and Pending Labs on day of discharge: Laboratory Results - last 24 hr 07/12/24 07/12/24 07/12/24 06:04 06:04 06:04 WBC 6.9 RBC 5.00 Hgb 16.2 Hct 47.6 MCV 95.2 MCH 32.4 MCHC 34.0 RDW 12.9 Plt Count 211 MPV 11.0 Immature Gran % (Auto) 0.1 Neut % (Auto) 55.8 Lymph % (Auto) 32.5 Sully % (Auto) 9.4 Eos % (Auto) 1.9 Baso % (Auto) 0.3 Lymph # (Auto) 2.3 Sully # (Auto) 0.7 Eos # (Auto) 0.1 Baso # (Auto) 0.0 Abs Immat Gran (auto) 0.01 Absolute Neuts (auto) 3.9 Absolute Nucleated RBC 0.000 Nucleated RBC % (auto) 0.0 Sodium 140 Cancelled Potassium 3.9 Cancelled Chloride 106 Carbon Dioxide Anion Gap BUN Creatinine Estim Creat Clear Calc Estimated GFR Random Glucose Calcium Total Bilirubin AST ALT Alkaline Phosphatase Total Protein Albumin 07/12/24 07/12/24 07/12/24 06:04 06:04 06:04 WBC RBC Hgb Hct MCV MCH MCHC RDW Plt Count MPV Immature Gran % (Auto) Neut % (Auto) Lymph % (Auto) Sully % (Auto) Eos % (Auto) Baso % (Auto) Lymph # (Auto) Sully # (Auto) Eos # (Auto) Baso # (Auto) Abs Immat Gran (auto) Absolute Neuts (auto) Absolute Nucleated RBC Nucleated RBC % (auto) Sodium Potassium Chloride Cancelled Carbon Dioxide 26 Cancelled Anion Gap 12 Cancelled BUN 9 Creatinine Estim Creat Clear Calc Estimated GFR Random Glucose Calcium Total Bilirubin AST ALT Alkaline Phosphatase Total Protein Albumin 07/12/24 07/12/24 07/12/24 06:04 06:04 06:04 WBC RBC Hgb Hct MCV MCH MCHC RDW Plt Count MPV Immature Gran % (Auto) Neut % (Auto) Lymph % (Auto) Sully % (Auto) Eos % (Auto) Baso % (Auto) Lymph # (Auto) Sully # (Auto) Eos # (Auto) Baso # (Auto) Abs Immat Gran (auto) Absolute Neuts (auto) Absolute Nucleated RBC Nucleated RBC % (auto) Sodium Potassium Chloride Carbon Dioxide Anion Gap BUN Cancelled Creatinine 0.78 Cancelled Estim Creat Clear Calc 75.4 Cancelled Estimated GFR > 60 Random Glucose Calcium Total Bilirubin AST ALT Alkaline Phosphatase Total Protein Albumin 07/12/24 07/12/24 07/12/24 06:04 06:04 06:04 WBC RBC Hgb Hct MCV MCH MCHC RDW Plt Count MPV Immature Gran % (Auto) Neut % (Auto) Lymph % (Auto) Sully % (Auto) Eos % (Auto) Baso % (Auto) Lymph # (Auto) Sully # (Auto) Eos # (Auto) Baso # (Auto) Abs Immat Gran (auto) Absolute Neuts (auto) Absolute Nucleated RBC Nucleated RBC % (auto) Sodium Potassium Chloride Carbon Dioxide Anion Gap BUN Creatinine Estim Creat Clear Calc Estimated GFR Cancelled Random Glucose 122 H Cancelled Calcium 9.0 Cancelled Total Bilirubin 0.8 AST 25 ALT 23 Alkaline Phosphatase 79 Total Protein 6.4 L Albumin 3.[address] scan - abdomen: Radiologist's impression: ITS Impressions Cervical Spine CT 07/11/24 10:21 IMPRESSION: Multilevel cervical spondylosis without acute fracture or trauma-related listhesis. Fleischner guidelines were followed. Electronically signed by: Caleb Andrews MD 07/11/2024 12:07 PM EDT RP Head CT 07/11/24 10:21 IMPRESSION: No acute fracture, bony calvarium. No acute intracranial hemorrhage. Small vessel occlusive disease. Global cerebral atrophy. 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 Diverticular disease/diverticulosis, left hemicolon. Fleischner guidelines were followed. Electronically signed by: Caleb Andrews MD 07/11/2024 11:59 AM EDT RP Discharge Plan Discharge Anticipated Discharge Date/Time: 07/12/24 14:54 Patient Disposition: Home Health Service Discharge Diagnosis: ORthostatic hypotension and syncope Referrals: [facility] [Outside] - 1 Week Clayton Chavez MD [Primary Care Provider] - 1 Week Discharge Medications: Continued albuterol sulfate [Ventolin HFA] 90 mcg/actuation Hfa Aerosol Inhaler 2 puff INHALATION Q6H PRN (Reason: Wheezing) sumatriptan succinate 50 mg tablet 50 mg PO Q2H MDD 100 MG PRN (Reason: Migraine Headache) Rx Instructions: NO MORE THAN 2 TABS IN 24 HRS pantoprazole 40 mg tablet,delayed release (DR/EC) 40 mg PO DAILY@0630 Eliquis 5 mg Tablet 5 mg PO BID Qty: 180 0RF digoxin 125 mcg (0.125 mg) Tablet 0.125 mg PO DAILY Qty: 90 0RF Protocol: Hold for HR <: HOLD for HR < : 60 metoprolol tartrate 25 mg Tablet 25 mg PO BEDTIME Jardiance 10 mg tablet 10 mg PO DAILY Verquvo 2.5 mg tablet 2.5 mg PO DAILY metoprolol tartrate 50 mg tablet 50 mg PO DAILY@0800 Protocol: Hold for SBP/HR < HOLD for SBP < : 90 HOLD for HR < : 60 albuterol sulfate 2.5 mg /3 mL (0.083 %) solution for nebulization 2.5 mg inhalation QID PRN (Reason: Wheezing) atorvastatin 80 mg tablet 80 mg PO DAILY multivitamin Tablet 1 tab PO DAILY amitriptyline 25 mg tablet 25 mg PO BEDTIME (DME) lancets [TRUEplus Lancets] 33 gauge misc See Rx Instructions topical .MEDSUPPLY Qty: 100 Rx Instructions: As directed (DME) FreeStyle Lite Strips Strip See Rx Instructions Not Applicable BID Qty: 10 Rx Instructions: As directed Discontinued Entresto 24-26 mg tablet 1 tab PO BID Discharge Orders: Discharge Order (Routine); Ordered 07/12/24 Ordered By: Rhae Moy Diet: Diabetic diet Activity on Discharge: As tolerated Stand Alone Forms: Patient Portal Discharge page Print Language: Barbadian Care Plan Goals: Stop Entresto Continue Metoprolol Drink large glass of water drinking water technician Monitor blood pressure readings at home 2 times a day (sitting and standing) and record the readings to discuss with PCP for further adjutment of blood pressure medicaitons if needed. Suspender Entresto Continuar con Metoprolol Beber un vaso hilary de agua por la ma?ayaan temprano. Monitorear la presi?n arterial en casa dos veces al d?a (sentado y de pie) y registrar las lecturas para comentarlas con hernandez m?dico de cabecera (PCP) y ajustar los medicamentos para la presi?n arterial si es necesario. Health Concerns: Orthostatic syncope and dizziness Plan of Treatment: Stop Entresto Assessment: as above
--- NOTE | 2024-07-12 15:27 | P.F2F_ITS ---
Service Date Service Date: 07/12/24 Encounter Date of encounter: 07/12/24 Reasons for Services Signs and symptoms assessed: Orthostatic dizziness Blood pressure medications Reason for assisted: medication management (Follow the discharge medications list ) and teach disease management Homebound: Leaving the home is medically contraindicated at this time without the asist of a device and/or another person due th the listed conditions above and below. Reason homebound: unable to drive Certification: Based on the above findings, I certify that this patient is confined to the home and needs intermittent assisted care, physical therapy and/or speech therapy, or continues to need occupational therapy. The patient is under my care, and I have initiated the establishment of the plan of care. The patient will be followed by a physician who will periodically review the plan of care. Time Spent With Patient Time: Total time managing care of this patient today ____ minutes.
== END 2024-07-12 17:51 | disposition home health service (06) | DRG 312 ==
LOC: HO.ED 12:55 → HO.EDOVER 16:35 → HO.IMC 16:53
PROVIDERS: Physician Assistant; Admitting Provider Student in an Organized Health Care Education/Training Program; Emergency Provider Emergency Medicine; PCP Internal Medicine; Visit Provider Student in an Organized Health Care Education/Training Program
DX: I95.1 Orthostatic hypotension (principal); I42.8 Other cardiomyopathies; I50.22 Chronic systolic (congestive) heart failure; I77.4 Celiac artery compression syndrome; M79.7 Fibromyalgia; I48.0 Paroxysmal atrial fibrillation; Z20.822 Contact with and (suspected) exposure to COVID-19; Z87.891 Personal history of nicotine dependence; Z79.01 Long term (current) use of anticoagulants; Z79.899 Other long term (current) drug therapy
CPT/HCPCS: 0241U; 36415; 70450; 72125; 74177; 80048; 80053; 83880; 84484; 85025; 93005; 97161; 99285; J2270; J2405; J7120; Q9967

== ENCOUNTER → 2024-07-11 09:52 | Outpatient (BNV) | payer OTHER, SELFPAY | PROVIDERS: Emergency Provider Emergency Medicine; PCP Internal Medicine; Visit Provider Internal Medicine Cardiovascular Disease | DX: I48.91 Unspecified atrial fibrillation (principal) | CPT/HCPCS: 93010 ==

== ENCOUNTER → 2024-07-11 09:58 | Outpatient (BNV) | payer OTHER, SELFPAY | PROVIDERS: Emergency Provider Emergency Medicine; PCP Internal Medicine; Visit Provider Student in an Organized Health Care Education/Training Program | DX: R10.9 Unspecified abdominal pain (principal); R55 Syncope and collapse; I50.22 Chronic systolic (congestive) heart failure; I48.91 Unspecified atrial fibrillation | CPT/HCPCS: 99222; 99238; G0180 ==

== ENCOUNTER → 2024-07-11 10:21 | Outpatient (BNV) | payer OTHER, SELFPAY | PROVIDERS: Emergency Provider Emergency Medicine; PCP Internal Medicine; Visit Provider Radiology Diagnostic Radiology | DX: K57.30 Diverticulosis of large intestine without perforation or abscess without bleeding (principal); G31.9 Degenerative disease of nervous system, unspecified; R55 Syncope and collapse; M47.812 Spondylosis without myelopathy or radiculopathy, cervical region | CPT/HCPCS: 70450; 72125; 74177 ==

== ENCOUNTER → 2024-07-11 15:26 | Outpatient (BNV) | payer OTHER, SELFPAY | PROVIDERS: Admitting Provider Student in an Organized Health Care Education/Training Program; Emergency Provider Emergency Medicine; PCP Internal Medicine; Visit Provider Physician Assistant Surgical | DX: I77.4 Celiac artery compression syndrome (principal) | CPT/HCPCS: 99222 ==

== ENCOUNTER 2024-07-23 08:32 | Outpatient (REF) | payer OTHER, SELFPAY ==
--- OUTSIDE RECORDS SUMMARY | 2024-07-23 08:54 | XMS_ITS | Encounter Summary ---
Author Organization [facility] Address [address] [place] [address] [address] [place] [address] Care Team Providers Care Scratch Polisher Name Role Phone Clayton Lyon MD Primary Care Provide r Chris Leal MD Unavailable [phone] Encounter Details Date Type Department Care Team (Late st Contact Info) Description 03/07/2022 [facility] Health Information Management [address], [place] [phone] Clayton Lyon MD [address], [place] [phone] Social History Tobacco Use Types Packs/Day Years [...] Description 08/13/2024 9:15 AM EDT Office Visit [facility] [address], [place] [phone] Clayton Lyon MD [address], [place] [phone] documented as of this encounter Procedures Procedure Name Priority Date/Time Associated Diagnosis Comments PSA, TOTAL Routine 12/05/2022 11:19 AM EDT STREP A NUCLEIC ACID Routine 05/30/2022 11:58 AM EST SARS COV2/INFLUENZA A/B AND RSV RNA QL NAAT Routine 05/30/2022 11:58 AM EST documented in this encounter Results * PSA,Total (12/05/2022 11:19 AM EDT) Prostate Specific Antigen 0.50 <0.05 - 4.0 ng/mL [facility] Comment:PSA methodology: Abb yong Aliemelity i ChemiluminescentMicroparticle Immunoassay (CMIA) 12/05/2022 11:1 9 AM EDT 12/05/2022 11:19 AM EDT [facility] External Provider LAB BLO OD ORDERABLES Final Result Performing Organization Address City/State/[facility] Co de Phone Number [facility] [address] [place] [phone] * SARS-CoV-2 RNA, Influenza A/B, and RSV RNA, Ql NAAT (05/30/2022 11:58 AM EST) Influenza A PCR NEGATIVE Negative [facility] Influenza B PCR NEGATIVE Negative [facility] Resp Syncy Virus RNA Qual PCR NEGATIVE Negative [facility] SARS COV2 PCR NEGATIVE Negative [facility] SARS/Flu/RSV Note See Note [facility] Comment:All test results mus t [...] use by authorized laboratories.Testing performed on the iD[employer] GeneXpert utilizingreal-time RT-PCR.All SARS CoV2 and positive influenza A/B results arereported to [facility] 05/30/2022 11:5 8 AM EST 05/30/2022 12:03 PM EST [facility] Exter nal Provider LAB MICROBIOLOGY - GENERAL ORDERABLES Final Result Performing Organization Address [facility] de Phone Number [facility] [address] [place] [address] [phone] * Strep A Nucleic Acid (05/30/2022 11:58 AM EST) IDNOW SERIAL# [id number] [facility] Strep A Nucleic Acid Negative Negative [facility] Comment:All test results mus t be correlated with clinical findings.This test has not been evaluated for monitoring treatment ofinfection.Additional follow-up testing using the culture method isrequired if the result is negative and clinical symptomspersist, or in the event of an acute rheumatic feveroutbreak. 05/30/2022 11:5 8 AM EST 05/30/2022 12:03 PM EST [facility] Exter nal Provider LAB MICROBIOLOGY - GENERAL ORDERABLES Final Result Performing Organization Address [facility] Phone Number [facility] [address] [place] [address] [phone] documented in this encounter Visit Diagnoses Not on filedocumented in this encounter Care Teams Scratch Polisher Relationship Specialty Start Date End Date Clayton Lyon MD [address] [place] [phone] PCP - General Internal Medicine 11/12/13 Chris Leal MD [address] [place] [address] Cardiology 07/10/24 [facility] 08/18/21 documented as of this encounter
--- OUTSIDE RECORDS SUMMARY | 2024-07-23 08:54 | XMS_ITS | Clinical Summary ---
Author Organization [facility] ity Address [address] [place] [address] Care Team Providers Care Holistic Nutritionist Name Role Phone Clayton Chavez MD Primary [...] age to complete this topic Care Teams Holistic Nutritionist Relationship Specialty Start Date End Date Clayton Chavez MD [address] [place] [address] [facility] [place] [id number] PCP - General Internal Medicine 06/26/14
--- OUTSIDE RECORDS SUMMARY | 2024-07-23 08:54 | XMS_ITS | Clinical Summary ---
Author Organization [employer] Address [address] [place] [address] [address] [place] [address] Care Team Providers Care Autocad Operator Name Role Phone Clayton Lyon MD Primary Care Provide r Chris Leal MD Unavailable [phone] Allergies Active Allergy Reactions Criticality Noted [...] 12/17/19 Active Blood Glucose Monitoring Suppl (FreeStyle [employer] Lite) w/Device kit USE FOR TEST BLOOD [...] complication, without long-term current use of insulin ([facility]) TAKE 1 TABLET BY MOUTH EVERY EVENING [...] (11/01/2022 10:24 AM EDT): Pt seen by [facility] Supervisor Dr Garcia He reviewed his laboratory results That included: CRP, RF, ESR and DAVIE were all Normal His assessment was that patient had fibromyalgia Right hand pain 11/01/2022 Assessment & Plan (02/14/2023 10:24 AM EST): Patient with painful right index finger, difficulty bending it. Seen at [facility] received steroid injections with good results 11/24/2022 Assessment & Plan (11/01/2022 10:25 AM EDT): Patient with painful right index finger, difficulty bending it. Seen in the past at [facility] received steroid injections with good results Pt would like to go back Grade II hemorrhoids 11/01/2022 Assessment & Plan (02/14/2023 10:24 AM EST): Evaluated by Dr Carney 10/2022 opted for conservative measures Assessment & Plan (11/01/2022 10:32 AM EDT): Patient with c/o BRBPR Exam indicative of hemorrhoids Plan: Increase fluid, fiber in diet Proctosl H Referral to Dr Carney [facility] health care 08/02/2022 Assessment & Plan (03/07/2024 [...] Pt seen in the ER at [facility] yesterday with cough, diagnosed with bronchitis. Treated with Prednisone, Benzonatate and a z-pack, Chest x-ray was negative Arthralgia 05/12/2022 Assessment & Plan (05/30/2022 12:49 PM EST): Televisit Pt seen by Dr. Enrique at our [facility] with c/o arthralgias, worse [...] shoulder pain. Seen in the past at [facility], last seen 02/27/2019 received a [...] Clinical correlation recommended. Pt was seen by Creative Coordinator 08/2018 who thought this was due to [...] of his LS spine done showed: 1. Crfq-sa-yffkvqvm loss of disc height at L4-L5 with a right paracentral disc extrusion resulting in mass effect upon the right L5 nerve root. Mild central canal stenosis. Broad-based left lateral disc protrusion and endplate spurring abutting the exiting left L4 nerve root. Bbif-sl-wvwmursa bilateral foraminal narrowing. 2. Mild spondylitic changes [...] DEPARTMENT Provider, Generic External Data 07/10/2024 Telephone [facility] [place] [address] Danielle [place] Faxed 07/08/[address] [phone] Clayton Lyon MD 07/01/2024 10:00 AM EDT Office Visit [address] [address] Audrey Noe ANP Atrial fibrillation, unspecified type (CMS/HCC) (Primary Dx); 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) (CMS/HCC); Hospital discharge follow-up; Pneumonia of both lungs due to infectious organism, unspecified part of lung; Diverticulosis; Cardiomyopathy, unspecified type (CMS/HCC); Decreased cardiac ejection fraction 07/01/[address] Bhatnagar F/U 07/01/2024 Travel 06/24/2024 Patient Outreach [address] [phone] Clayton Lyon MD Transition Of Care (Tcm) (HDF- scheduled and SDOH screening was completed on 04/16/2024) 06/20/2024 Patient Outreach [address] [phone] Clayton Lyon MD Transition Of Care (Tcm) (HDF unscheduled) 06/20/[address] [phone] Clayton Lyon MD Hospital Follow-up 06/15/2024 Orders Only [facility] External Provider, [facility] 05/24/2024 Refill [facility] [address] [place], [place] [phone] Aline Bird LPN Fatigue due to excessive exertion, sequela 04/30/2024 9:15 AM EST Office Visit [facility] [address] [place] [address] Clayton Lyon MD Type 2 diabetes mellitus without complication, without long-term current use of insulin ([facility]) (Primary Dx); Diverticulosis; Tympanic membrane perforation, left 04/30/2024 Travel from Last 3 Months Immunizations Name Administration [...] Description 08/13/2024 9:15 AM EDT Office Visit [facility] [address] [place] [address] Clayton Lyon MD [address] [place], [place] [phone] Health Maintenance Due Date Last Done Comments Eye Exam 01/11/1956 RSV Patients and Patients Aged 60 years or older (1 - 1-dose 75+ series) 2021 COVID-19 Vaccine (2023- season) 2023 04/27/2021, 08/29/2020, 08/01/2020 Depression Screening 12/11/2024 12/12/2023, 12/12/19 24 Diabetes: Foot Exam 12/11/2024 12/12/2023, 12/12/2023, 12/12/2023 Diabetes: Urine Protein Screening 12/13/2024 12/14/2023, 04/04/2022, 06/10/2021 Lipid Panel 12/13/2024 12/14/2023, 01/26, 04/04/2022, Additional history exists Diabetes: Hemoglobin A1C [...] Procedure Name Priority Date/Time Associated Diagnosis Comments CT ABDOMEN PELVIS W CONTRAST Routine 07/11/2024 11:[address] CERVICAL SPINE WO CONTRAST Routine 07/11/2024 10:[address] HEAD WO CONTRAST Routine 07/11/2024 1 0:21 AM EDT SARS COV2/INFLUENZA A/B AND RSV [...] Recently Relevant to Health Maintenance Results * CT Abdomen Pelvis w/ Contrast (07/11/2024 11:12 AM EDT) Only the most recent of2 resultswithin the time period is included. Anatomical Region Laterality Modality Body, Pelvis, Abdomen Computed T omography 07/11/2024 11:1 2 AM EDT Narrative 07/11/2024 12:02 PM EDT ? [facility] ?[address] ?[place] [address] ? CT Scan Report ? Signed ? Patient: Davis,Shelton ?MR#: [id number] ? : 1945 ?Acct:[id number] ? Age/Sex: 79 / M ?ADM Date: 04/17/25 ? Loc: HO.ED ? Attending Dr: ? Ordering Physician: Rosy Castillo ?? Date of Service: 07/11/24 ?? Procedure(s): CT abdomen pelvis w IV con ?? Accession Number(s): [id number] ? cc: Clayton Chavez MD; Rosy Castillo ? Report Number: ?? [id number]: Total DLP = ??492.00 mGy-cm ?? EXAMINATION: ?? CT ABDOMEN AND PELVIS WITH CONTRAST ? CLINICAL INFORMATION: ?? Vomiting. Abdominal pain. History of diverticulitis. ? COMPARISON: ?? June 15, 2024. ? TECHNIQUE: ?? Multidetector volumetric images were obtained from the superior aspect ?? of the liver through the pubic symphysis following administration 85 mL ?? of Omnipaque 350 intravenous contrast. Sagittal and coronal reformatted ?? images were obtained on the technologist's workstation. ? Oral contrast: No ? This CT examination was performed using dose optimization techniques as ?? appropriate, variously including the following: ?? *Automated exposure control ?? *Adjustment of mA and/or kV according to patient size (this includes ?? techniques or standardized protocols for targeted exams where dose is ?? matched to indication/reason for exam; i.e. extremities or head) ?? *Use of iterative reconstruction technique. ?? DLP: 492 mGy centimeter. ? FINDINGS: ?? LUNG BASES: Multifocal patchy pulmonary groundglass. ? LIVER, GALLBLADDER, AND BILIARY TREE: Liver measures 15 cm. Decreased ?? enhancement pattern. No focal mass. Portal veins and intrahepatic ?? portion of the IVC are patent. No pericholecystic fluid collection or ?? gallbladder wall thickening. No intrahepatic or extrahepatic biliary ?? ductal dilatation. ? PANCREAS: No focal mass. No peripancreatic fluid collection. No main ?? pancreatic ductal dilatation. ? SPLEEN: 7 cm. No focal lesion. 2 mm hypodensities/cystic lesion, ?? nonspecific. ? ADRENAL GLANDS: Soft tissue fullness, left adrenal gland. No nodular ?? mass. ? KIDNEYS AND URETERS: No hydronephrosis. No gross renal mass. No gross ?? nephrolithiasis. Normal enhancement pattern of the renal cortex. ? BLADDER: Fluid-filled. ? GASTROINTESTINAL TRACT: Limited by patient's breathing artifact. ?? Numerous diverticula, descending colon and sigmoid colon. No ?? pericolonic edema pattern. ?? Abundant stool. ?? No intestinal obstruction pattern. ?? No pneumatosis intestinalis. ?? No pneumoperitoneum. ?? No ascites. ?? No peripheral enhancing fluid collections in the peritoneal cavity. ?? There is a collapsed appearance of the ascending colon and hepatic ?? colonic flexure. ?? I do not see the appendix, no mesocecum edema pattern or fluid ?? collections. ? ABDOMINAL WALL: Small fat-containing umbilical hernia. ? LYMPH NODES: No gross lymphadenopathy. ? VASCULAR: There is a focal narrowing of the celiac trunk with a post ?? stenotic 11 mm dilatation secondary to the diaphragmatic crura. ? No aneurysm or dissection of the abdominal aorta and iliac arteries. ?? Calcified plaques in the distal abdominal aorta wall and iliac arteries. ?? The heart is enlarged. ? PELVIC VISCERA: The prostate gland is not enlarged with dystrophic ?? calcifications. ? OSSEOUS STRUCTURES: Ra type I sacralization. Spondylosis at ?? multiple levels more conspicuous at L5-S1. ? CT/CT abdomen pelvis w IV con ?? IMPRESSION: ?? 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 ?? Diverticular disease/diverticulosis, left hemicolon. ? Fleischner guidelines were followed. ? Electronically signed by: ??Caleb Andrews MD ??07/11/2024 11:59 AM ?? EDT RP ? Dictated By: ?Caleb Carter MD ? Signed By: ?<Electronically signed by Caleb Ramirez MD in OV> ? 07/11/24 1159 ? DD/ 1112 ? TD/TT: 07/11/24 1146 ? Receiving Tank Operator: ? Procedure Note Inge, Nicole - 07/11/[address] [address] [address] Scan Report Signed Patient: Mariah Davis#: [id number] : 6Acct:[id number] Age/Sex: 79 / MADM Date: 07/11/24 Loc: HO.ED Attending Dr: Ordering Physician: Rosy Castillo Date of Service: 07/11/24 Procedure(s): CT abdomen pelvis w IV con Accession Number(s): [id number] cc: Clayton Chavez MD; Rosy Castillo Report Number: [id number]: Total DLP = 492.00 mGy-cm EXAMINATION: CT ABDOMEN AND PELVIS WITH CONTRAST CLINICAL INFORMATION: Vomiting. Abdominal pain. History of diverticulitis. COMPARISON: June 15, 2024. TECHNIQUE: Multidetector volumetric images were obtained from the superior aspect of the liver through the pubic symphysis following administration 85 mL of Omnipaque 350 intravenous contrast. Sagittal and coronal reformatted images were obtained on the technologist's workstation. Oral contrast: No This CT examination was performed using dose optimization techniques as appropriate, variously including the following: *Automated exposure control *Adjustment of mA and/or kV according to patient size (this includes techniques or standardized protocols for targeted exams where dose is matched to indication/reason for exam; i.e. extremities or head) *Use of iterative reconstruction technique. DLP: 492 mGy centimeter. FINDINGS: LUNG BASES: Multifocal patchy pulmonary groundglass. LIVER, GALLBLADDER, AND BILIARY TREE: Liver measures 15 cm. Decreased enhancement pattern. No focal mass. Portal veins and intrahepatic portion of the IVC are patent. No pericholecystic fluid collection or gallbladder wall thickening. No intrahepatic or extrahepatic biliary ductal dilatation. PANCREAS: No focal mass. No peripancreatic fluid collection. No main pancreatic ductal dilatation. SPLEEN: 7 cm. No focal lesion. 2 mm hypodensities/cystic lesion, nonspecific. ADRENAL GLANDS: Soft tissue fullness, left adrenal gland. No nodular mass. KIDNEYS AND URETERS: No hydronephrosis. No gross renal mass. No gross nephrolithiasis. Normal enhancement pattern of the renal cortex. BLADDER: Fluid-filled. GASTROINTESTINAL TRACT: Limited by patient's breathing artifact. Numerous diverticula, descending colon and sigmoid colon. No pericolonic edema pattern. Abundant stool. No intestinal obstruction pattern. No pneumatosis intestinalis. No pneumoperitoneum. No ascites. No peripheral enhancing fluid collections in the peritoneal cavity. There is a collapsed appearance of the ascending colon and hepatic colonic flexure. I do not see the appendix, no mesocecum edema pattern or fluid collections. ABDOMINAL WALL: Small fat-containing umbilical hernia. LYMPH NODES: No gross lymphadenopathy. 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 No aneurysm or dissection of the abdominal aorta and iliac arteries. Calcified plaques in the distal abdominal aorta wall and iliac arteries. The heart is enlarged. PELVIC VISCERA: The prostate gland is not enlarged with dystrophic calcifications. OSSEOUS STRUCTURES: Ra type I sacralization. Spondylosis at multiple levels more conspicuous at L5-S1. 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 Diverticular disease/diverticulosis, left hemicolon. Fleischner guidelines were followed. Electronically signed by: Caleb Andrews MD 07/11/2024 11:59 AM EDT RP Dictated By: Caleb Carter MD Signed By: <Electronically signed by Caleb Ramirez MDin OV> 07/11/24 1159 DD/ 1112 TD/TT: 07/11/24 1146 Receiving Tank Operator: [facility] External Provider IMG CT PROCEDURES Final Result * CT Cervical Spine w/o Contrast (07/11/2024 10:21 AM EDT) Anatomical Region Laterality Modality Spine, C-spine Computed Tomogra phy 07/11/2024 10:2 1 AM EDT Narrative 07/11/2024 12:10 PM EDT ? [facility] ?[address] ?[place] [address] ? CT Scan Report ? Signed ? Patient: Davis,Shelton ?MR#: [id number] ? : 1945 ?Acct:[id number] ? Age/Sex: 79 / M ?ADM Date: 04/17/25 ? Loc: HO.ED ? Attending Dr: ? Ordering Physician: Rosy Castillo ?? Date of Service: 07/11/24 ?? Procedure(s): CT cervical spine wo IV con ?? Accession Number(s): [id number] ? cc: Clayton Chavez MD; Rosy Castillo ? Report Number: ?? [id number]: Total DLP = ??560.00 mGy-cm ?? EXAMINATION: ?? CT CERVICAL SPINE WITHOUT CONTRAST ? CLINICAL INFORMATION: ?? Syncope. ? COMPARISON: ?? March 11, 2024. ? TECHNIQUE: ?? Contiguous axial images through the cervical spine using 3 mm ?? collimation with bone and soft tissue algorithm. Sagittal and coronal ?? reformatted images acquired. ? This CT examination was performed using dose optimization techniques as ?? appropriate, variously including the following: ?? *Automated exposure control ?? *Adjustment of mA and/or kV according to patient size (this includes ?? techniques or standardized protocols for targeted exams where dose is ?? matched to indication/reason for exam; i.e. extremities or head) ?? *Use of iterative reconstruction technique. ?? DLP: 560 mGy centimeter. ? FINDINGS: ?? Craniocervical junction is intact. ?? Syndesmophyte formation and marginal osteophyte formation C3 C5-6 and ?? C6-7 levels. Decreased intervertebral disc height and endplate ?? sclerosis with subchondral cyst formation, C5-6 and C6-7 levels. ?? Multilevel facet joint hypertrophy more conspicuous at C4-5 and C5-6 ?? levels. ?? There is normal alignment between the vertebral bodies and the facet ?? joints. ? C1 is intact. ?? C2 is intact. ?? C3 is intact. ?? C4 is intact. ?? C5 is intact. ?? C6 is intact. ?? C7 is intact. ?? No gross prevertebral compartment hematoma. ?? Calcified plaques in the carotid bulbs and proximal ICAs, bilaterally. ?? Tympanic cavities and mastoid cells are aerated. ? CT/CT cervical spine wo IV con ?? IMPRESSION: ?? Multilevel cervical spondylosis without acute fracture or ?? trauma-related listhesis. ? Fleischner guidelines were followed. ? Electronically signed by: ??Caleb Andrews MD ??07/11/2024 12:07 PM ?? EDT RP ? Dictated By: ?Caleb Carter MD ? Signed By: ?<Electronically signed by Caleb Ramirez MD in OV> ? 07/11/24 1207 ? DD/ 1021 ? TD/TT: 07/11/24 1146 ? Receiving Tank Operator: ? Procedure Note Donotuseinterpreter, Image - 07/11/[address] [address] [address] Scan Report Signed Patient: Shelton DavisMR#: [id number] : 1945cct:[id number] Age/Sex: 79 / MADM Date: 07/11/24 Loc: HO.ED Attending Dr: Ordering Physician: Rosy Castillo Date of Service: 07/11/24 Procedure(s): CT cervical spine wo IV con Accession Number(s): [id number] cc: Clayton Chavez MD; Rosy Castillo Report Number: [id number]: Total DLP = 560.00 mGy-cm EXAMINATION: CT CERVICAL SPINE WITHOUT CONTRAST CLINICAL INFORMATION: Syncope. COMPARISON: March 11, 2024. TECHNIQUE: Contiguous axial images through the cervical spine using 3 mm collimation with bone and soft tissue algorithm. Sagittal and coronal reformatted images acquired. This CT examination was performed using dose optimization techniques as appropriate, variously including the following: *Automated exposure control *Adjustment of mA and/or kV according to patient size (this includes techniques or standardized protocols for targeted exams where dose is matched to indication/reason for exam; i.e. extremities or head) *Use of iterative reconstruction technique. DLP: 560 mGy centimeter. FINDINGS: Craniocervical junction is intact. Syndesmophyte formation and marginal osteophyte formation C3 C5-6 and C6-7 levels. Decreased intervertebral disc height and endplate sclerosis with subchondral cyst formation, C5-6 and C6-7 levels. Multilevel facet joint hypertrophy more conspicuous at C4-5 and C5-6 levels. There is normal alignment between the vertebral bodies and the facet joints. C1 is intact. C2 is intact. C3 is intact. C4 is intact. C5 is intact. C6 is intact. C7 is intact. No gross prevertebral compartment hematoma. Calcified plaques in the carotid bulbs and proximal ICAs, bilaterally. Tympanic cavities and mastoid cells are aerated. CT/CT cervical spine wo IV con IMPRESSION: Multilevel cervical spondylosis without acute fracture or trauma-related listhesis. Fleischner guidelines were followed. Electronically signed by: Caleb Andrews MD 07/11/2024 12:07 PM EDT RP Dictated By: Caleb Carter MD Signed By: <Electronically signed by Caleb Ramirez MDin OV> 07/11/24 1207 DD/ 1021 TD/TT: 07/11/24 1146 Receiving Tank Operator: us [facility] External Provider IMG CT PROCEDURES Final Result * CT Head w/o Contrast (07/11/2024 10:21 AM EDT) Anatomical Region Laterality Modality Head, Neck Computed Tomogra phy 07/11/2024 10:2 1 AM EDT Narrative 07/11/2024 12:05 PM EDT ? [facility] ?[address] ?[place] [address] ? CT Scan Report ? Signed ? Patient: Shelton Davis ?MR#: [id number] ? : 1945 ?Acct:[id number] ? Age/Sex: 79 / M ?ADM Date: 07/11/24 ? Loc: HO.ED ? Attending Dr: ? Ordering Physician: Rosy Castillo ?? Date of Service: 07/11/24 ?? Procedure(s): CT head/brain wo IV con ?? Accession Number(s): [id number] ? cc: Clayton Chavez MD; Rosy Castillo ? Report Number: ?? [id number]: Total DLP = ??700.00 mGy-cm ?? EXAMINATION: ?? CT HEAD WITHOUT CONTRAST ? CLINICAL INFORMATION: ?? syncope, on eliquis ? COMPARISON: ?? March 11, 2024. ? TECHNIQUE: ?? Contiguous axial imaging was performed from the skull base to vertex ?? without intravenous administration of contrast. ? This CT examination was performed using dose optimization techniques as ?? appropriate, variously including the following: ?? *Automated exposure control ?? *Adjustment of mA and/or kV according to patient size (this includes ?? techniques or standardized protocols for targeted exams where dose is ?? matched to indication/reason for exam; i.e. extremities or head) ?? *Use of iterative reconstruction technique ? DLP: ?? 700 mGy-cm ? FINDINGS: ?? The bony calvarium is intact. ?? The skull base is intact. ?? No acute intracranial hemorrhage, mass effect, midline shift, ?? hydrocephalus or herniation. ?? Posterior cranial fossa contents demonstrated no acute intracranial ?? hemorrhage. ?? Sellar/suprasellar region demonstrated no gross masses or focal ?? hemorrhage. ?? Bilateral multifocal patchy and confluent deep periventricular white ?? matter hypodensities involving centrum semiovale and andrews radiata. ?? Multifocal old lacunar infarcts, brainstem, basal ganglia extracapsular ?? and andrews radiata white matter. Focal encephalomalacia, right insular ?? subinsular region. ?? Prominence of the extra-axial CSF spaces cerebral sulci and ventricles. ?? Calcified plaques in the cavernous supracavernous segments both ICAs. ?? No hematoma is in the intraconal or extraconal compartments of the ?? orbits. ? No air-fluid levels in the paranasal sinuses. Tympanic cavities and ?? mastoid cells are aerated. ?? Incomplete fusion of the posterior arch of C1. ? CT/CT head/brain wo IV con ?? IMPRESSION: ?? No acute fracture, bony calvarium. ?? No acute intracranial hemorrhage. ?? Small vessel occlusive disease. ?? Global cerebral atrophy. ? Electronically signed by: ??Caleb Andrews MD ??07/11/2024 12:02 PM ?? EDT ? Dictated By: ?Caleb Carter MD ? Signed By: ?<Electronically signed by Caleb Ramirez MD in OV> ? 07/11/24 1202 ? DD/ 1021 ? TD/TT: 07/11/24 1146 ? Receiving Tank Operator: ? Procedure Note Nicole Alcazar - 07/11/2024 [facility] [address] [facility] [place] [address] CT Scan Report Signed Patient: Shelton Davis#: [id number] : 1945cct:[id number] Age/Sex: 79 / MADM Date: 07/11/24 Loc: HO.ED Attending Dr: Ordering Physician: Rosy Castillo Date of Service: 07/11/24 Procedure(s): CT head/brain wo IV con Accession Number(s): [id number] cc: Clayton Chavez MD; Rosy Castillo Report Number: [id number]: Total DLP = 700.00 mGy-cm EXAMINATION: CT HEAD WITHOUT CONTRAST CLINICAL INFORMATION: syncope, on eliquis COMPARISON: March 11, 2024. TECHNIQUE: Contiguous axial imaging was performed from the skull base to vertex without intravenous administration of contrast. This CT examination was performed using dose optimization techniques as appropriate, variously including the following: *Automated exposure control *Adjustment of mA and/or kV according to patient size (this includes techniques or standardized protocols for targeted exams where dose is matched to indication/reason for exam; i.e. extremities or head) *Use of iterative reconstruction technique DLP: 700 mGy-cm FINDINGS: The bony calvarium is intact. The skull base is intact. No acute intracranial hemorrhage, mass effect, midline shift, hydrocephalus or herniation. Posterior cranial fossa contents demonstrated no acute intracranial hemorrhage. Sellar/suprasellar region demonstrated no gross masses or focal hemorrhage. Bilateral multifocal patchy and confluent deep periventricular white matter hypodensities involving centrum semiovale and andrews radiata. Multifocal old lacunar infarcts, brainstem, basal ganglia extracapsular and andrews radiata white matter. Focal encephalomalacia, right insular subinsular region. Prominence of the extra-axial CSF spaces cerebral sulci and ventricles. Calcified plaques in the cavernous supracavernous segments both ICAs. No hematoma is in the intraconal or extraconal compartments of the orbits. No air-fluid levels in the paranasal sinuses. Tympanic cavities and mastoid cells are aerated. Incomplete fusion of the posterior arch of C1. CT/CT head/brain wo IV con IMPRESSION: No acute fracture, bony calvarium. No acute intracranial hemorrhage. Small vessel occlusive disease. Global cerebral atrophy. Electronically signed by: Caleb Andrews MD 07/11/2024 12:02 PM EDT Dictated By: Caleb Carter MD Signed By: <Electronically signed by Caleb Ramirez MDin OV> 07/11/24 1202 DD/ 1021 TD/TT: 07/11/24 1146 Receiving Tank Operator: [facility] External Provider IMG CT PROCEDURES Final Result * SARS-CoV-2 RNA, Influenza A/B, and RSV RNA, Ql NAAT (07/11/2024 10:04 AM EDT) Only the most recent of2 resultswithin the time period is included. Influenza A PCR NEGATIVE Negative [facility] Influenza B PCR NEGATIVE Negative [facility] Resp Syncy Virus RNA Qual PCR NEGATIVE Negative [facility] SARS COV2 PCR NEGATIVE Negative [facility] Comment:All test results mus [...] use by authorized laboratories.Testing performed on the [employer] GeneXpert utilizingreal-time RT-PCR.All SARS CoV2 and positive influenza A/B results arereported to [facility]. 07/11/2024 10:0 4 AM EDT 07/11/2024 10:09 AM EDT us Generic External Data Provider LAB MICROBIOLOGY - GENERAL ORDERABLES Final Result [facility] [address] [place] [phone] * HOLD LT BLUE - POSSIBLE COAG (07/11/2024 10:02 AM EDT) Hold Lt Blue - Possible Coag SEE NOTE [facility] Comment:Specimen will be hel d untested for 4 hours. Call Hematologyif testing is desired. 07/11/2024 10:0 2 AM EDT 07/11/2024 10:10 AM EDT Generic External Data Provider LAB BLOOD ORDERAB LES Final Result Performing Organization Address City/[facility]/ZIP Co de Phone Number [facility] [address] [place] [phone] * (ABNORMAL) B Type Natriuretic Peptide (BNP) (07/08/2024 2:37 PM EDT) [facility] B Type Natriuretic Peptide 357(H) <100 pg/mL [facility] Blood Venous blood specimen / Unknown 07/08/2024 2:37 PM EDT 07/08/2024 3:58 PM EDT [facility] ANP LAB BLOOD ORDERABLES Final Resul t Performing Organization Address [facility]/ZIP Co de Phone Number [facility] [address] [place] [phone] * Basic Metabolic Panel (07/08/2024 2:37 PM EDT) [facility] Sodium 140 135 - 145 mmol/L [facility] Potassium 4.6 3.3 - 5.1 mmol/L [facility] Chloride 106 96 - 108 mmol/L [facility] Carbon Dioxide 27 22 - 29 mmol/L [facility] Anion Gap 12 12 - 20 [facility] Urea Nitrogen (BUN) 10 9 - 16 mg/dL [facility] Creatinine, Serum 0.94 0.5 - 1.4 mg/dL [facility] Estimated Glomerular Filt Rate >60 [facility] Comment:Chronic Kidney Disea se: Estimated GFR < 60 mL/min/1.63h2Csxtxq Kidney Disease: Estimated GFR < 15 mL/min/1.73m2 Glucose 111 60 - 115 mg/dL [facility] Calcium 9.3 8.4 - 10.2 mg/dL [facility] Blood Venous blood specimen / Unknown 07/08/2024 2:37 PM EDT 07/08/2024 4:00 PM EDT Audrey Noe [facility] LAB BLOOD ORDERABLES Final Resul t [facility] [address] [place] [address] [phone] * (ABNORMAL) POCT HGB A1C (07/01/2024 11:00 AM EDT) Hemoglobin A1C 6.2(A) 4.0 - 6.0 % QC Media Lot # [id number] Lot# Expiration Date Blood 07/01/2024 11:0 0 AM EDT [facility] POINT OF CARE TEST ENTER/EDIT OR DERABLES Final Result * POCT Glucose (07/01/2024 10:31 AM EDT) Only the most recent of2 resultswithin the time period is included. Glucose Blood, POC 124 60 - 200 mg/dL QC Media Lot # [id number] Lot# Expiration Date Blood Capillary blood specimen / Unknown 07/01/2024 10:31 AM EDT [facility] POINT OF CARE TEST ENTER/EDIT OR DERABLES Final Result * (ABNORMAL) Urinalysis, Complete, with Reflex to Culture (06/15/2024 2:21 PM EDT) Color Urine Yellow [facility] Appearance Urine Clear [facility] PH 7.0 5.0 - 9.0 [facility] Glucose Urine UA Negative Negative mg/dL [facility] Urine Blood Negative Negative [facility] Specific [place] - Urine >=1.030(H) 1.005 - 1.025 [facility] Urine Protein Negative Neg-Trace mg/dL [facility] Urine Ketones Negative Negative mg/dL [facility] Nitrite Urine Negative Negative [facility] Leukocyte Esterase Urine Negative Negative [facility] RBC Urine 0-2 0 - 2 /HPF [facility] Urine WBC 0-5 0 - 5 /HPF [facility] Urine Squamous Epithelial Cell 0-2 0 - 2 /HPF [facility] Urine Bacteria None Seen None Seen [facility] Hyaline Casts, Urine 0-2 0 - 2 /LPF [facility] 06/15/2024 2:21 PM EDT 06/15/2024 2:33 PM EDT Narrative [facility] - 06/15/2024 2:40 PM EDT Urine, Clean Catch us Generic External Data Provider LAB URINE ORDERAB LES Final Result Performing Organization Address [facility] Co de Phone Number [facility] [address] [place] [phone] * High Sensitivity Troponin I (06/15/2024 1:16 PM EDT) TROPONIN I HIGH SENSITIVITY 12.3 <3.5 - 35.0 ng/L [facility] Comment:The Matias high sens itivity Troponin-I results should beused in conjunction with other diagnostic information suchas ECG, clinical observations and information, and patientsymptoms to aid in the diagnosis of HI. 06/15/2024 1:16 PM EDT 06/15/2024 1:18 PM EDT Narrative [facility] - 06/15/2024 1:52 PM EDT Comment RPT TROP AT 1304 us Generic External Data Provider LAB BLOOD ORDERAB LES Final Result Performing Organization Address [facility]/ZIP Co de Phone Number [facility] [address] [place] [phone] * XR Chest 1 View (06/15/2024 11:34 AM EDT) Anatomical Region Laterality Modality Chest Radiographic Lisset ging 06/15/2024 11:3 4 AM EDT Narrative 06/15/2024 11:35 AM EDT ? [facility] ?[address] ?[place] [address] ?XRay Report ? Signed ? Patient: Davis,Shelton ?MR#: [id number] ? : 1945 ?Acct:[id number] ? Age/Sex: 79 / M ?ADM Date: 06/15/24 ? Loc: HO.ED ? Attending Dr: ? Ordering Physician: Shira Robison ?? Date of Service: 06/15/24 ?? Procedure(s): XR chest 1V ?? Accession Number(s): [id number] ? cc: Clayton Chavez MD; Shira Robison ? CLINICAL HISTORY: weakness - unwell ? 1 view chest x-ray ? Comparison: CR/HI/SR - XR CHEST 1V - 08/29/23 13:47 [...] DD/ 1134 ? TD/TT: 06/15/24 1134 ? Receiving Tank Operator: ? Procedure Note Inge, Image - 06/15/[address] [address] XRay Report Signed Patient: Mariah Davis#: [id number] : 6Acct:[id number] Age/Sex: 79 / MADM Date: 06/15/24 Loc: HO.ED Attending Dr: Ordering Physician: Shira Robison Date of Service: 06/15/24 Procedure(s): XR chest 1V Accession Number(s): [id number] cc: Clayton Chavez MD; Shira Robison CLINICAL HISTORY: weakness - unwell 1 view chest x-ray Comparison: CR/HI/SR - XR CHEST 1V - 08/29/23 13:47 [...] 06/15/24 1135 DD/ 1134 TD/TT: 06/15/24 1134 Receiving Tank Operator: [facility] External Provider IMG XR PROCEDURES Edited Result - Final * (ABNORMAL) Lipid Panel, Standard (12/14/2023 9:24 AM EDT) Triglycerides 93 <150 mg/dL [facility] Comment:Desirable Triglyceri de: less than 150 mg/dLBorderline High Triglyceride 150-199 mg/dLHigh Triglyceride: 200-499 mg/dLVery High Triglyceride: greater than or equal to 5OO mg/dL Cholesterol 162 <200 mg/dL [facility] Comment:Desirable Cholestero l: less than 200 mg/dLBorderline High Cholesterol: 200-239 mg/dLHigh Cholesterol: greater than 239 mg/dL LDL Cholesterol Calculated 105(H) <100 mg/dL [facility] Comment:Desirable LDL: less than 100 mg/dLNear Optimal/Above Optimal LDL: 110- 129 mg/dLBorderline High LDL: 130-159 mg/dLHigh LDL: 160-189 mg/dLVery High LDL: greater than or equal to 190 mg/dL HDL Cholesterol 39(L) >40 mg/dL [facility] Comment:Desirable HDL: great er than 40 mg/dL Note: This HDL assay may give artificially low results in patients with liver disease. Blood Venous blood specimen / Unknown 12/14/2023 9:24 AM EDT 12/14/2023 11:23 AM EDT Clayton Millard MD LAB BLOOD ORDERABLES Final Result Performing Organization Address [facility] Co de Phone Number [facility] [address] [place] [phone] * Albumin, Random Urine W/Creatinine (12/14/2023 9:20 AM EDT) Creatinine, Urine 167.95 mg/dL [facility] Microalbumin Urine 8.0 mg/L [facility] Microalbum Creatinine Ratio Ur 4.7 <30 ug/mg cr [facility] Comment:Albumin/Creatinine R atio Reference Ranges: Normal: < 30 ug/mg creatinine Microalbuminuria: 30 - 300 ug/mg creatinineClinical Albuminuria: > 300 ug/mg creatinine Urine (Urine, Random) 12/14/2023 9:20 AM EDT 12/14/2023 11:13 AM EDT Clayton Millard MD LAB URINE ORDERABLES Final Result Performing Organization Address [facility] de Phone Number [facility] [address] [place] [phone] * Hepatitis C Antibody with Reflex to HCV, RNA, Quantitative, Real-Time PCR (04/04/2022 10:44 AM EST) Hepatitis C Antibody NON-REACT FRANCHESCA NON-REACT FRANCHESCA [facility] [place] [facility] Index <0.02 <1.00 [facility] Comment: HCV antibody was non-reactive. There is no laboratory evidence of HCV infection. In most cases, no further action is required. However, if recent HCV exposure is suspected, a test for HCV RNA (test code 52956) is suggested. For additional information please refer to http://education.shoutr/faq/TXR99p2 (This link is being provided for informational/ educational purposes only.) Blood Venous blood specimen / Unknown 04/04/2022 10:44 AM EST 04/04/2022 10:44 AM EST Narrative [facility] - 04/05/2022 6:45 PM EST FASTING:YES FASTING: YES Clayton Millard MD LAB BLOOD ORDERABLES Final Result [facility] [address] [facility], [facility], [place] [address] [facility] [address], ([address]) [place] [address] from Last 3 Months or Most Recently Relevant to Health Maintenance Insurance [facility] (O D-SNP) [place] [address] [place] [address] Care Teams Autocad Operator Relationship Specialty Start Date End Date Clayton Lyon MD [address] [place] [address] PCP - General Internal Medicine 11/12/13 Chris Leal MD [address] [place] [address] Cardiology 07/10/24 [facility] 08/18/21
--- OUTSIDE RECORDS SUMMARY | 2024-07-23 08:54 | XMS_ITS | Data Portability ---
Author Organization [employer] Address [address] [place] [phone] Care Team Providers Care Manager Content Name Role Phone HIM CCA OTHER Assessment [...] been taking tylenol and occasional oxycodone. VSS. Hogshead Weigher on site reports bruising over the shoulder, [...] Name and Address Organization Details Recorded Time 33010 lisinopri l medicatio n Not available Not available Not available 06/12/2024 20095 RxNorm Not Available [facility] - production 13:30:19 21118 gabapenti n medicatio n Not available Not available Not available 06/12/2024 71132 RxNorm Not Available [facility] - production 5 13:30:19 28166 Xanax medicatio n Not available Not available Not available 06/12/202458867 3 RxNorm Harriett Cortez MD [address] [place] [address],[address], [place], [phone], [email or web address] 5 14:56:19 14743 oxycodone medicatio n Not available Not available Not available 06/12/2024 7804 RxNorm Harriett Cortez MD [address] [place] [address],[address], [place], [phone], [email or web address] 5 14:56:24 89337 acetamino phen / oxycodone medicatio n Not available Not available Not available 06/12/2024 62956 3 RxNorm Not Available [facility] - production 15:37:05 Medications Name Sig Start [...] /min 132 mm[Hg] 80 mm[Hg] Not Available [facility] 4 12:49:57 Date Recorded Respiratory rate Oxygen saturation Oxygen saturation in Arterial blood by Pulse oximetry Heart rate Body temperature Systolic blood pressure Diastolic blood pressure Provider Name and Address Organization Details Last Updated DateTime 5 18 /min 96 % 96 % 63 /min 98.6 [degF] 145 mm[Hg] 96 mm[Hg] Not Available [employer] 5 14:47:09 Social History None recorded. Functional Status None recorded. Mental Status None recorded. Family History Nothing Reported. Medical History No medical history recorded. Past Encounters Encounter ID Performer Location Encounter Start Date Encounter Closed Date Diagnosis/Indication Diagnosis SNOMED-CT Code Diagnosis ICD10 Code Diagnosis Note [id number] Destiny Patel MD Main - [facility] [address] [place] [phone] 09/01/2023 12:46:34 11/21/2023 14:15:14 Muscle pain 43721630 M79.10 [id number] [facility] [address] [place] [phone] 06/12/2024 14:44:38 06/12/2024 22:02:59 Hypertensive disorder [id number] I10 Evaluation in the field was performed by my lens gauger colleague, as noted above, I provided real-time direction and supervisio n for this visit.This is a 79yo M with PMHx HTN seen at [facility] ED 05/25 for headache, dizziness, and [...] Leblanc Member ID Guarantor Name 09/01/[address] [facility] - DOS ON OR AFTER 2022 - DUAL ELIGIBLE - SNF OPTIONS AND ONE CARE (MEDICARE REPLACEMENT/ADV ANTAGE - HMO) Shelton Davis [id number] Shelton Davis 06/12/[address] [facility] - DOS ON OR AFTER 2022 - DUAL ELIGIBLE - SNF OPTIONS AND ONE CARE (MEDICARE REPLACEMENT/ADV ANTAGE - HMO) Shelton Davis [id number] Shelton Davis Notes Date Note Type Note Provider Name and Address Organization Details Recorded Time 09/01/2023 text/html HPI: ROSSY is a very pleasant 78 Frisian speaking y/o male with a PMH of, [...] but no open wounds. ROSSY presented to [facility] on the day of the fall for [...] do so. MBR can be reached at [phone]. .................. .................. .................. .................. .................. .................. .................. ............... CRC Nurse Triage Notes (Rosy Corona): Comments: CRC RN did not require any additional information to process this visit. .................. .................. .................. .................. .................. .................. .................. ............... Hogshead Weigher Note From Hitesh Araiza: Dispatched to the [...] ............... Disposition: Fallon Destiny Patel MD [address] [facility],[address], [place], [phone], [employer] 11/20/2023 19:41:13 06/12/2024 text/html CRC Nurse Triage [...] at this time. Went to ER at [facility] on 05/25. Currently taking Metoprolol daily. Junior Accounting Clerk instructed patient to increase dose to 2 tablets daily. Denies chest pain. Education provided on the response time and the member was advised to monitor reported s/s and seek emergency treatment if needed. .................. .................. .................. .................. .................. .................. .................. ............... Hogshead Weigher Note From Nadine Bennett: Sent to a call for a pt complaining of hypertension. SC8 arrives on scene, pt is alert and oriented, airway is patent. Pt complains of hypertension along with the following intermittent symptoms since 05/25: headache, feeling off balance, sob, and nausea. Pt denies cp, vomiting, diarrhea, abd pain, fever, or loc. Pt states he was evaluated at [facility] ED on 05/25 and by Junior Accounting Clerk on 06/07. Pt states his Metoprolol dosage was increased from 25mg to 50mg PO. (sitting) BP:145/96, P:63, RR:18, SpO2:96% RA, T:98.6; (standing) BP:147/101, P:63; Head: unremarkable; Lung sounds: clear bilaterally; Abdomen: soft, non-tender, no distention; Back: unremarkable; Extremities: unremarkable; Skin: pink, warm, dry; Pt requests transport to [facility] ED for re-evaluation. [facility] contacted and advised of pt's wishes. 911 called; Pt care transferred to [facility] Dept. .................. .................. .................. .................. .................. .................. .................. ............... [facility] Consulted: Harriett Cortez .................. .................. .................. .................. .................. .................. .................. ............... Disposition: Fulfilled Harriett Cortez MD [address] [facility],[address], [place], [phone], [employer] - [employer]KEL RANGEL 06/12/2024 15:48:07
--- OUTSIDE RECORDS SUMMARY | 2024-07-23 08:54 | XMS_ITS | Encounter Summary ---
Author Organization [employer] Address [address] [place] [address] Care Team Providers Care Weight Tester Name Role Phone Clayton Lyon MD Primary Care Provide r Chris Leal MD Unavailable [phone] Reason for Visit * Reason Onset Date Comments ER Follow-up 08/31/2023 Encounter Details Date Type Department Care Team ([facility] st Contact Info) Description 08/31/2023 Telephone [facility] MEDICINE [address] [place], [place] [phone] Clayton Lyon MD [address] [place], [place] [phone] ER Follow-up Social History Tobacco Use Types [...] ED visit on : Date: 09/18/[address]: [facility] Seen for: fall Patient advised will forward to team nurse for follow up documented in this encounter Plan of Treatment Upcoming Encounters Date Type Department Care Team (Late st Contact Info) Description 08/13/2024 9:15 AM EDT Office Visit [facility] MEDICINE [address] [place] [address] Clayton Lyon MD [address] [place] [address] documented as of this encounter Visit Diagnoses Not on filedocumented in this encounter Care Teams Weight Tester Relationship Specialty Start Date End Date Clayton Lyon MD [address] [place] [address] PCP - General Internal Medicine 11/12/13 Chris Leal MD [address] [place] [address] Cardiology 07/10/24 [facility] 08/18/21 documented as of this encounter
--- OUTSIDE RECORDS SUMMARY | 2024-07-23 08:54 | XMS_ITS | Encounter Summary ---
Author Organization [employer] Address [address] [facility] [address] [place] [address] Care Team Providers Care Fig Washer Name Role Phone Clayton Lyon MD Primary Care Provide r Chris Leal MD Unavailable [phone] Reason for Visit * Reason Onset Date Comments Hospital Follow-up 06/20/2024 Encounter Details Date Type Department Care Team ([facility] st Contact Info) Description 06/20/2024 Telephone [facility] MEDICINE [address] [place], [place] [phone] Clayton Lyon MD [address] [place], [place] [phone] Hospital Follow-up Social History Tobacco Use Types [...] EDT Tc from pt returning phone call. [phone] * Telephone Encounter - Jade Zaidi - 06/20/2024 9:42 AM EDT Tc from pt requesting a F appt. Hospital: [facility] Date of admission: 06/15/2024 Discharge date: 06/19/2024 Diagnosed: Cardiomyopathy heart working 20 % severe heart failure Atrial fibrillation with RVR Pneumonia Diverticulitis *Send message to [facility] Care Coordinators documented in this encounter Plan of Treatment Upcoming Encounters Date Type Department Care Team (Late st Contact Info) Description 08/13/2024 9:15 AM EDT Office Visit [facility] MEDICINE [address] [place] [address] Clayton Lyon MD [address] [place] [address] documented as of this encounter Visit Diagnoses Not on filedocumented in this encounter Additional Health Concerns Assessment Noted Time PHQ-9 Depression Total Score: 0 12/12/19 24 10:28 AM EDT documented as of this encounter Care Teams Fig Washer Relationship Specialty Start Date End Date Clayton Lyon MD [address] [place] [address] PCP - General Internal Medicine 11/12/13 Chris Leal MD [address] [place] [address] Cardiology 07/10/24 [facility] 08/18/21 documented as of this encounter
--- OUTSIDE RECORDS SUMMARY | 2024-07-23 08:54 | XMS_ITS | Encounter Summary ---
Author Organization [employer] [facility] Address [address] [place] [address] [address] [place] [address] Care Team Providers Care Sales Facilitator Name Role Phone Clayton Lyon MD Primary Care Provide r Chris Leal MD Unavailable Encounter Details Date Type Department Care Team (Latest Contact Info) Description 10/16/2020 Abstract [facility] Dental, Provider, DDS Social History [...] Description 08/13/2024 9:15 AM EDT Office Visit [facility] MEDICINE [address] [place] [address] Clayton Lyon MD [address] [place] [address] documented as of this encounter Visit Diagnoses Not on filedocumented in this encounter Care Teams Sales Facilitator Relationship Specialty Start Date End Date Clayton Lyon MD [address] [place] [address] PCP - General Internal Medicine 11/12/13 Chris Leal MD [address] [place] [address] Cardiology 07/10/24 [facility] 08/18/21 documented as of this encounter
[2024-07-23 11:24] LABS: MANUAL DIFF FLAG NO
[2024-07-23 11:34] LABS: INTERNATIONAL NORM RATIO 1.1 (0.9-1.1); Prothrombin Time 13.3 SEC (10.9-12.4)
[2024-07-23 11:37] LABS: Partial Thromboplastin Time 33.5 SEC (26.0-36.8)
[2024-07-23 11:40] LABS: Basophils Percent Auto 0.4 % (0-2); Eosinophils Absolute Auto 0.1 X10*3/uL (0.0-0.4); Eosinophils Percent Auto 1.3 % (0-4); Hematocrit 48.5 % (42.0-52.0); Hemoglobin 16.1 g/dl (14.0-18.0); Imm Gran Abs Auto 0.03 X10*3/uL (0.00-0.03); Imm Gran Pct Auto 0.4 % (0.0-0.4); Lymphocytes Absolute Auto 2.8 X10*3/uL (1.2-4.9); Lymphocytes Percent Auto 39.7 % (20-40); Mean Corpuscular HGB Conc 33.2 g/dl (31.0-36.0); Mean Corpuscular Hemoglobin 31.9 pg (27.0-33.0); Mean Platelet Volume 11.1 fL (9.4-12.4); Monocytes Absolute Auto 0.5 X10*3/uL (0.1-1.2); Monocytes Percent Auto 7.2 % (2-11); Neutrophils Absolute Auto 3.6 x10*3/uL (2.0-8.3); Platelet Count 237 X10*3/uL (160-400); Red Blood Count 5.05 X10*6/uL (4.60-5.80); Red Cell Distribution Width 13.2 % (11.0-16.0)
[2024-07-23 11:50] LABS: Anion Gap 14 (12-20); Blood Urea Nitrogen 8 mg/dL (9-16); Calcium 9.9 mg/dL (8.4-10.2); Carbon Dioxide 27 mmol/L (22-29); Chloride 106 mmol/L (96-108); Cholesterol 198 mg/dL (<200); Estimated Glomerular Filt Rate > 60; Glucose Random 121 mg/dL (60-115); HDL Cholesterol 40 mg/dL (>40); LDL Cholesterol Calculated 132 mg/dL (<100); Potassium 4.4 mmol/L (3.3-5.1); Sodium 143 mmol/L (135-145); Triglycerides 132 mg/dL (<150)
[2024-07-23 12:08] LABS: Prostate Specific Antigen 0.47 ng/mL (<0.05-4.0)
[2024-07-23 12:10] LABS: Digoxin 0.6 ng/mL (0.8-2.0)
== END 2024-07-23 08:33 | disposition home or self-care (01) ==
LOC: HO.HHCL 08:32
PROVIDERS: Urology; Visit Provider Internal Medicine Cardiovascular Disease
DX: Z12.5 Encounter for screening for malignant neoplasm of prostate (principal); Z13.6 Encounter for screening for cardiovascular disorders; N40.1 Benign prostatic hyperplasia with lower urinary tract symptoms; N13.8 Other obstructive and reflux uropathy; I42.9 Cardiomyopathy, unspecified; I48.91 Unspecified atrial fibrillation
CPT/HCPCS: 36415; 80048; 80061; 80162; 84153; 85025; 85610; 85730

== ENCOUNTER 2024-07-24 09:16 | Outpatient (REF) | payer OTHER, SELFPAY ==
--- OUTSIDE RECORDS SUMMARY | 2024-07-24 09:52 | XMS_ITS | Data Portability ---
Author Organization [employer] [employer] [facility] [employer] Address [address] [place] [phone] Care Team Providers Care Supervisor Of Research Name Role Phone HIM [facility] OTHER Assessment [...] been taking tylenol and occasional oxycodone. VSS. Yard Switcher on site reports bruising over the shoulder, [...] Name and Address Organization Details Recorded Time 69067 lisinopri l medicatio n Not available Not available Not available 06/12/2024 94694 RxNorm Not Available [facility] - production 13:30:19 72781 gabapenti n medicatio n Not available Not available Not available 06/12/2024 08370 RxNorm Not Available [facility] 5 13:30:19 15579 Xanax medicatio n Not available Not available Not available 06/12/202496848 3 RxNorm Harriett Cortez MD [address] [place] [address],[address], [place], [phone], [employer] 5 14:56:19 11656 oxycodone medicatio n Not available Not available Not available 06/12/2024 7804 RxNorm Harriett Cortez MD [address] [place] [address],[address], [place], [phone], [employer] 5 14:56:24 91724 acetamino phen / oxycodone medicatio n Not available Not available Not available 06/12/2024 15757 3 RxNorm Not Available [facility] - production 15:37:05 Medications Name Sig Start [...] /min 132 mm[Hg] 80 mm[Hg] Not Available [employer] 4 12:49:57 Date Recorded Respiratory rate Oxygen saturation Oxygen saturation in Arterial blood by Pulse oximetry Heart rate Body temperature Systolic blood pressure Diastolic blood pressure Provider Name and Address Organization Details Last Updated DateTime 5 18 /min 96 % 96 % 63 /min 98.6 [degF] 145 mm[Hg] 96 mm[Hg] Not Available [employer] 5 14:47:09 Social History None recorded. Functional Status None recorded. Mental Status None recorded. Family History Nothing Reported. Medical History No medical history recorded. Past Encounters Encounter ID Performer Location Encounter Start Date Encounter Closed Date Diagnosis/Indication Diagnosis SNOMED-CT Code Diagnosis ICD10 Code Diagnosis Note [id number] Destiny Patel MD Main - [facility] [address] [place] [phone] 09/01/2023 12:46:34 11/21/2023 14:15:14 Muscle pain 33015462 M79.10 [id number] [facility] [address] [place] [phone] 06/12/2024 14:44:38 06/12/2024 22:02:59 Hypertensive disorder 11981258 I10 Evaluation in the field was performed by my superintendent custodian janitor colleague, as noted above, I provided real-time direction and supervisio n for this visit.This is a 79yo M with PMHx HTN seen at [facility] ED 05/25 for headache, dizziness, and nausea [...] OR AFTER 2022 - DUAL ELIGIBLE - USP OPTIONS AND ONE CARE (MEDICARE REPLACEMENT/ADV ANTAGE - HMO) Shelton Davis [id number] Shelton Davis 06/12/[address] [facility] - DOS ON OR AFTER 2022 - DUAL ELIGIBLE - USP OPTIONS AND ONE CARE (MEDICARE REPLACEMENT/ADV ANTAGE - HMO) Shelton Davis [id number] Shelton Davis Notes Date Note Type Note Provider Name and Address Organization Details Recorded Time 09/01/2023 text/html HPI: ROSSY is a very pleasant 78 Czech speaking y/o male with a PMH of, [...] but no open wounds. ROSSY presented to [facility] on the day [...] do so. MBR can be reached at [phone]. .................. .................. .................. .................. .................. .................. .................. ............... CRC Nurse Triage Notes (Rosy Corona): Comments: CRC RN did not require any additional information to process this visit. .................. .................. .................. .................. .................. .................. .................. ............... Yard Switcher Note From Hitesh Araiza: Dispatched to the [...] Disposition: Fallon Destiny Patel MD [address] [facility], [place], [phone], [facility] 11/20/2023 19:41:13 06/12/2024 text/html CRC Nurse Triage [...] at this time. Went to ER at [facility] on 05/25. Currently taking Metoprolol daily. Pattern Grader Supervisor instructed patient to increase dose to 2 tablets daily. Denies chest pain. Education provided on the response time and the member was advised to monitor reported s/s and seek emergency treatment if needed. .................. .................. .................. .................. .................. .................. .................. ............... Yard Switcher Note From Nadine Bennett: Sent to a call for a pt complaining of hypertension. SC8 arrives on scene, pt is alert and oriented, airway is patent. Pt complains of hypertension along with the following intermittent symptoms since 05/25: headache, feeling off balance, sob, and nausea. Pt denies cp, vomiting, diarrhea, abd pain, fever, or loc. Pt states he was evaluated at [facility] ED on 05/25 and by Pattern Grader Supervisor on 06/07. Pt states his Metoprolol dosage was increased from 25mg to 50mg PO. (sitting) BP:145/96, P:63, RR:18, SpO2:96% RA, T:98.6; (standing) BP:147/101, P:63; Head: unremarkable; Lung sounds: clear bilaterally; Abdomen: soft, non-tender, no distention; Back: unremarkable; Extremities: unremarkable; Skin: pink, warm, dry; Pt requests transport to [facility] ED for re-evaluation. [facility] contacted and advised of pt's wishes. 911 called; Pt care transferred to [facility] Dept. .................. .................. .................. .................. .................. .................. .................. ............... [facility] Consulted: Harriett Cortez .................. .................. .................. .................. .................. .................. .................. ............... Disposition: Fulfilled Harriett Cortez MD [address] [facility],[address], [place], [phone], [employer] - [employer] Corporation[employer]KEL RANGEL 06/12/2024 15:48:07
--- OUTSIDE RECORDS SUMMARY | 2024-07-24 09:52 | XMS_ITS | Encounter Summary ---
Author Organization [employer] Address [address] [place] [address] Care Team Providers Care Housekeeping Room Inspector Name Role Phone Clayton Lyon MD Primary Care Provide r Chris Leal MD Unavailable [phone] Reason for Visit * Reason Onset Date Comments ER Follow-up 08/31/2023 Encounter Details Date Type Department Care Team ([facility] st Contact Info) Description 08/31/2023 Telephone [facility] [address] [place], [place] [phone] Clayton Lyon MD [address] [place], [place] [phone] ER Follow-up Social History Tobacco Use Types [...] ED visit on : Date: 09/18/23 Hospital: [facility] Seen for: fall Patient advised will forward to team nurse for follow up documented in this encounter Plan of Treatment Upcoming Encounters Date Type Department Care Team (Late st Contact Info) Description 08/13/2024 9:15 AM EDT Office Visit [facility] [address] [place] [address] Clayton Lyon MD [address] [place] [address] documented as of this encounter Visit Diagnoses Not on filedocumented in this encounter Care Teams Housekeeping Room Inspector Relationship Specialty Start Date End Date Clayton Lyon MD [address] [place] [address] PCP - General Internal Medicine 11/12/13 Chris Leal MD [address] [place] [address] Cardiology 07/10/24 [facility] 08/18/21 documented as of this encounter
--- OUTSIDE RECORDS SUMMARY | 2024-07-24 09:52 | XMS_ITS | Encounter Summary ---
Author Organization [facility] Address [address] [place] [address] [address] [place] [address] Care Team Providers Care Coil Winding Supervisor Name Role Phone Clayton Lyon MD Primary Care Provide r Chris Leal MD Unavailable [phone] Encounter Details Date Type Department Care Team (Late st Contact Info) Description 03/07/2022 [facility] Health Information Management [address] [place], [place] [phone] Clayton Lyon MD [address] [place], [place] [phone] Social History Tobacco Use Types Packs/Day Years [...] Description 08/13/2024 9:15 AM EDT Office Visit [facility]INE [address] [place], [place] [phone] Clayton Lyon MD [address] [place], [place] [phone] documented as of this encounter Procedures Procedure Name Priority Date/Time Associated Diagnosis Comments PSA, TOTAL Routine 12/05/2022 11:19 AM EDT STREP A NUCLEIC ACID Routine 05/30/2022 11:58 AM EST SARS COV2/INFLUENZA A/B AND RSV RNA QL NAAT Routine 05/30/2022 11:58 AM EST documented in this encounter Results * PSA,Total (12/05/2022 11:19 AM EDT) Prostate Specific Antigen 0.50 <0.05 - 4.0 ng/mL [facility] Comment:PSA methodology: Abb yong Aliemelity i ChemiluminescentMicroparticle Immunoassay (CMIA) 12/05/2022 11:1 9 AM EDT 12/05/2022 11:19 AM EDT [facility] External Provider LAB BLO OD ORDERABLES Final Result Performing Organization Address City/State/[facility] Co de Phone Number [facility] [address] [place] [phone] * SARS-CoV-2 RNA, Influenza A/B, and RSV RNA, Ql NAAT (05/30/2022 11:58 AM EST) Influenza A PCR NEGATIVE Negative [facility] Influenza B PCR NEGATIVE Negative [facility] Resp Syncy Virus RNA Qual PCR NEGATIVE Negative [facility] SARS COV2 PCR NEGATIVE Negative [facility] SARS/Flu/RSV Note See Note [facility] Comment:All test results mus t [...] use by authorized laboratories.Testing performed on the [employer] GeneXpert utilizingreal-time RT-PCR.All SARS CoV2 and positive influenza A/B results arereported to [facility]. 05/30/2022 11:5 8 AM EST 05/30/2022 12:03 PM EST [facility] Exter nal Provider LAB MICROBIOLOGY - GENERAL ORDERABLES Final Result Performing Organization Address [facility] de Phone Number [facility] [address] [place] [phone] * Strep A Nucleic Acid (05/30/2022 11:58 AM EST) [employer] SERIAL# [id number] [facility] Strep A Nucleic Acid Negative Negative [facility] Comment:All test results mus t be correlated with clinical findings.This test has not been evaluated for monitoring treatment ofinfection.Additional follow-up testing using the culture method isrequired if the result is negative and clinical symptomspersist, or in the event of an acute rheumatic feveroutbreak. 05/30/2022 11:5 8 AM EST 05/30/2022 12:03 PM EST [facility] Exter nal Provider LAB MICROBIOLOGY - GENERAL ORDERABLES Final Result Performing Organization Address [facility] Phone Number [facility] [address] [place] [address] [phone] documented in this encounter Visit Diagnoses Not on filedocumented in this encounter Care Teams Coil Winding Supervisor Relationship Specialty Start Date End Date Clayton Lyon MD [address] [place] [address] PCP - General Internal Medicine 11/12/13 Chris Leal MD [address] [place] [address] Cardiology 07/10/24 [facility] 08/18/21 documented as of this encounter
--- OUTSIDE RECORDS SUMMARY | 2024-07-24 09:52 | XMS_ITS | Clinical Summary ---
Author Organization [employer] Address [address] [place] [address] 7[address] [place] [address] Care Team Providers Care Relations Specialist Name Role Phone Clayton Lyon MD Primary Care Provide r Chris Leal MD Unavailable [phone] Allergies Active Allergy Reactions Criticality Noted [...] 12/17/19 Active Blood Glucose Monitoring Suppl (FreeStyle Forest[place] Lite) w/Device kit USE FOR TEST BLOOD [...] complication, without long-term current use of insulin ([facility]) TAKE 1 TABLET BY MOUTH EVERY EVENING [...] (11/01/2022 10:24 AM EDT): Pt seen by [employer] Workflow Consultant Dr Garcia He reviewed his laboratory results That included: CRP, RF, ESR and DAVIE were all Normal His assessment was that patient had fibromyalgia Right hand pain 11/01/2022 Assessment & Plan (02/14/2023 10:24 AM EST): Patient with painful right index finger, difficulty bending it. Seen at [facility] received steroid injections with good results 11/24/2022 Assessment & Plan (11/01/2022 10:25 AM EDT): Patient with painful right index finger, difficulty bending it. Seen in the past at [facility] received steroid injections with good results [...] to Dr Carney [facility] health care 08/02/2022 Assessment & [...] EST): Pt seen in the ER at [facility] yesterday with cough, diagnosed with bronchitis. Treated with Prednisone, Benzonatate and a z-pack, Chest x-ray was negative Arthralgia 05/12/2022 Assessment & Plan (05/30/2022 12:49 PM EST): Televisit Pt seen by Dr. Enrique at our [facility] with c/o arthralgias, worse [...] shoulder pain. Seen in the past at [facility], last seen 02/27/2019 received a steroid injection [...] Clinical correlation recommended. Pt was seen by Appointment Coordinator 08/2018 who thought this was due [...] of his LS spine done showed: 1. Zsdc-hq-yueltryt loss of disc height at L4-L5 with a right paracentral disc extrusion resulting in mass effect upon the right L5 nerve root. Mild central canal stenosis. Broad-based left lateral disc protrusion and endplate spurring abutting the exiting left L4 nerve root. Hboj-yl-gczifsma bilateral foraminal narrowing. 2. Mild spondylitic changes [...] Encounters Date Type Department Care Team Description 07/23/2024 Telephone [facility] [place] [address] Clayton Lyon MD In person triage 07/11/2024 Orders Only GENERIC EXTERNAL DATA DEPARTMENT Provider, Generic External Data 07/10/2024 Telephone [facility] [place] [place] [address] Danielle West [place] Faxed 07/08/2024 [address] [place] [address] Clayton Lyon MD 07/01/2024 10:00 AM EDT Office [address] [place] [address] Audrey Noe ANP Atrial fibrillation, unspecified type (CMS/HCC) (Primary Dx); 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 Bhatnagar F/U 07/01/2024 Travel 06/24/2024 Patient Outreach [address] [place] [address] Clayton Lyon MD Transition Of Care (Tcm) (HDF- scheduled and SDOH screening was completed on 04/16/2024) 06/20/2024 Patient Outreach [facility] [place] [address] Clayton Lyon MD Transition Of Care (Tcm) (HDF unscheduled) 06/20/2024 Telephone [facility] [place] [address] Clayton Lyon MD Hospital Follow-up 06/15/2024 Orders Only [facility] External Provider, [facility] 05/24/2024 Refill [facility] [address] [place] [address] Aline Bird LPN Fatigue due to excessive exertion, sequela 04/30/2024 9:15 AM EST Office Visit [facility] [address] [place], [place] [phone] Clayton Lyon MD Type 2 diabetes mellitus without complication, without long-term current use of insulin ([facility]) (Primary Dx); Diverticulosis; Tympanic membrane perforation, left [...] Sign Reading Time Taken Comments Blood Pressure 130/97 07/23/2024 9:40 AM EDT Pulse 65 07/23/2024 9:40 AM EDT Temperature 36.4 ??C (97.6 ??F) 07/23/2024 9:40 AM ED T Respiratory Rate 16 07/01/2024 10:19 AM EDT Oxygen Saturation 97% 07/23/2024 9:40 AM EDT Inhaled Oxygen Concentration - - Weight 71.8 kg (158 lb 3.2 oz) 07/01/2024 10:19 AM EDT Height 170.2 cm (5' 7 ) 04/30/2024 9:21 AM EST Body Mass Index 24.78 04/30/2024 9:21 AM EST Plan of Treatment Upcoming Encounters Date Type Department Care Team (Late st Contact Info) Description 08/13/2024 9:15 AM EDT Office Visit [facility] [address] [place] [address] Clayton Lyon MD [address] [place] [address] Health Maintenance Due Date Last Done Comments Eye Exam 01/11/1956 RSV Patients and Patients Aged 60 years or older (1 - 1-dose 75+ series) 2021 COVID-19 Vaccine ( season) 2023 04/27/2021, 08/29/2020, 08/01/2020 Depression Screening 12/11/2024 12/12/2023, 12/12/19 Diabetes: Foot [...] EDT Narrative 07/11/2024 12:02 PM EDT ? [facility] ?[address] ?[place] [address] ? CT Scan Report ? Signed ? Patient: Davis,Shelton ?MR#: [id number] ? : 1945 ?Acct:[id number] ? Age/Sex: 79 / M ?ADM Date: 04/17/25 ? Loc: HO.ED ? Attending Dr: ? Ordering Physician: Rosy Castillo ?? Date of Service: 07/11/24 ?? Procedure(s): CT abdomen pelvis w IV con ?? Accession Number(s): [id number] ? cc: Clayton Chavez MD; Rosy Castillo ? Report Number: ?? [id number]: Total DLP = ??492.00 mGy-cm ?? EXAMINATION: [...] Andrews MD ??07/11/2024 11:59 AM ?? EDT ? Dictated By: ?Caleb Carter MD ? Signed By: ?<Electronically signed by Caleb Ramirez MD in OV> ? 07/11/24 1159 ? DD/ 1112 ? TD/TT: 07/11/24 1146 ? Gauger Chief Delivery: ? Procedure Note Nicole Alcazar - 07/11/2024 [address] [place] [address] CT Scan Report Signed Patient: Shelton Davis#: [id number] : 6Acct:[id number] Age/Sex: 79 / MADM Date: 07/11/24 Loc: HO.ED Attending Dr: Ordering Physician: Rosy Castillo Date of Service: 07/11/24 Procedure(s): CT abdomen pelvis w IV con Accession Number(s): [id number] cc: Clayton Chavez MD; Rosy Castillo Report Number: [id number]: Total DLP = 492.00 mGy-cm EXAMINATION: CT [...] 07/11/24 1159 DD/ 1112 TD/TT: 07/11/24 1146 Gauger Chief Delivery: [facility] External Provider IMG CT PROCEDURES Final Result * CT Cervical Spine w/o Contrast (07/11/2024 10:21 AM EDT) Anatomical Region Laterality Modality Spine, C-spine Computed Tomogra phy 07/11/2024 10:2 1 AM EDT Narrative 07/11/2024 12:10 PM EDT ? [facility] ?[address] ?[place] [address] ? CT Scan Report ? Signed ? Patient: Davis,Shelton ?MR#: [id number] ? : 1945 ?Acct:[id number] ? Age/Sex: 79 / M ?ADM Date: 04/17/25 ? Loc: HO.ED ? Attending Dr: ? Ordering Physician: Rosy Castillo ?? Date of Service: 07/11/24 ?? Procedure(s): CT cervical spine wo IV con ?? Accession Number(s): [id number] ? cc: Clayton Chavez MD; Rosy Castillo ? Report Number: ?? [id number]: Total DLP = ??560.00 mGy-cm ?? EXAMINATION: [...] DD/ 1021 ? TD/TT: 07/11/24 1146 ? Gauger Chief Delivery: ? Procedure Note Donotuseinterpreter, Image - 07/11/[address] [address] [address] Scan Report Signed Patient: Shelton DavisMR#: [id number] : 1945cct:[id number] Age/Sex: 79 / MADM Date: 07/11/24 Loc: HO.ED Attending Dr: Ordering Physician: Rosy Castillo Date of Service: 07/11/24 Procedure(s): CT cervical spine wo IV con Accession Number(s): [id number] cc: Clayton Chavez MD; Rosy Castillo Report Number: [id number]: Total DLP = 560.00 mGy-cm EXAMINATION: CT [...] 07/11/24 1207 DD/ 1021 TD/TT: 07/11/24 1146 Gauger Chief Delivery: [facility] External Provider IMG CT PROCEDURES Final Result * CT Head w/o Contrast (07/11/2024 10:21 AM EDT) Anatomical Region Laterality Modality Head, Neck Computed Tomogra phy 07/11/2024 10:2 1 AM EDT Narrative 07/11/2024 12:05 PM EDT ? [facility] ?[address] ?[place] [address] ? CT Scan Report ? Signed ? Patient: Shelton Davis ?MR#: [id number] ? : 1945 ?Acct:[id number] ? Age/Sex: 79 / M ?ADM Date: 07/11/24 ? Loc: HO.ED ? Attending Dr: ? Ordering Physician: Rosy Castillo ?? Date of Service: 07/11/24 ?? Procedure(s): CT head/brain wo IV con ?? Accession Number(s): [id number] ? cc: Clayton Chavez MD; Rosy Castillo ? Report Number: ?? [id number]: Total DLP = ??700.00 mGy-cm ?? EXAMINATION: [...] Andrews MD ??07/11/2024 12:02 PM ?? EDT RP ? Dictated By: ?Caleb Carter MD ? Signed By: ?<Electronically signed by Caleb Ramirez MD in OV> ? 07/11/24 1202 ? DD/ 1021 ? TD/TT: 07/11/24 1146 ? Gauger Chief Delivery: ? Procedure Note Nicole Alcazar - 07/11/[address] [address] [address] Scan Report Signed Patient: Shelton DavisMR#: [id number] : 1945cct:[id number] Age/Sex: 79 / MADM Date: 07/11/24 Loc: HO.ED Attending Dr: Ordering Physician: Rosy Castillo Date of Service: 07/11/24 Procedure(s): CT head/brain wo IV con Accession Number(s): [id number] cc: Clayton Chavez MD; Rosy Castillo Report Number: [id number]: Total DLP = 700.00 mGy-cm EXAMINATION: CT [...] 07/11/24 1202 DD/ 1021 TD/TT: 07/11/24 1146 Gauger Chief Delivery: [facility] External Provider IMG CT PROCEDURES Final Result * SARS-CoV-2 RNA, Influenza A/B, and RSV RNA, Ql NAAT (07/11/2024 10:04 AM EDT) Only the most recent of2 resultswithin the time period is included. Influenza A PCR NEGATIVE Negative [facility] Influenza B PCR NEGATIVE Negative [facility] Resp Syncy Virus RNA Qual PCR NEGATIVE Negative [facility] SARS COV2 PCR NEGATIVE Negative [facility] Comment:All test results mus t [...] use by authorized laboratories.Testing performed on the Arm[employer]ight GeneXpert utilizingreal-time RT-PCR.All SARS CoV2 and positive influenza A/B results arereported to [facility]. 07/11/2024 10:0 4 AM EDT 07/11/2024 10:09 AM EDT Generic External Data Provider LAB MICROBIOLOGY - GENERAL ORDERABLES Final Result [facility] [address] [place] [phone] * HOLD LT BLUE - POSSIBLE COAG (07/11/2024 10:02 AM EDT) [facility] Hold Lt Blue - Possible Coag SEE NOTE [facility] Comment:Specimen will be hel d untested for 4 hours. Call Hematologyif testing is desired. 07/11/2024 10:0 2 AM EDT 07/11/2024 10:10 AM EDT Generic External Data Provider LAB BLOOD ORDERAB LES Final Result Performing Organization Address [facility]/ZIP Co de Phone Number [facility] [address] [place] [address] [phone] * (ABNORMAL) B Type Natriuretic Peptide (BNP) (07/08/2024 2:37 PM EDT) [facility] B Type Natriuretic Peptide 357(H) <100 pg/mL [facility] Blood Venous blood specimen / Unknown 07/08/2024 2:37 PM EDT 07/08/2024 3:58 PM EDT [facility] LAB BLOOD ORDERABLES Final Resul t Performing Organization Address [facility]/ZIP Co de Phone Number [facility] [address] [place] [address] [phone] * Basic Metabolic Panel (07/08/2024 2:37 PM EDT) [facility] Sodium 140 135 - 145 mmol/L [facility] Potassium 4.6 3.3 - 5.1 mmol/L [facility] Chloride 106 96 - 108 mmol/L [facility] Carbon Dioxide 27 22 - 29 mmol/L [facility] Anion Gap 12 12 - 20 [facility] Urea Nitrogen (BUN) 10 9 - 16 mg/dL [facility] Creatinine, Serum 0.94 0.5 - 1.4 mg/dL [facility] Estimated Glomerular Filt Rate >60 [facility] Comment:Chronic Kidney Disea se: Estimated GFR < 60 mL/min/[id number] Kidney Disease: Estimated GFR < 15 mL/min/1.73m2 Glucose 111 60 - 115 mg/dL [facility] Calcium 9.3 8.4 - 10.2 mg/dL [facility] Blood Venous blood specimen / Unknown 07/08/2024 2:37 PM EDT 07/08/2024 4:00 PM EDT Audrey Noe [facility] LAB BLOOD ORDERABLES Final Resul t [facility] [address] [place] [phone] * (ABNORMAL) POCT HGB A1C (07/01/2024 11:00 AM EDT) Hemoglobin A1C 6.2(A) 4.0 - 6.0 % QC Media Lot # [id number] Lot# Expiration Date Blood 07/01/2024 11:0 0 AM EDT us Audrey Noe [facility] POINT OF CARE TEST ENTER/EDIT OR DERABLES Final Result * POCT Glucose (07/01/2024 10:31 AM EDT) Only the most recent of2 resultswithin the time period is included. Glucose Blood, POC 124 60 - 200 mg/dL QC Media Lot # [id number] Lot# Expiration Date Blood Capillary blood specimen / Unknown 07/01/2024 10:31 AM EDT us Audrey Noe [facility] POINT OF CARE TEST ENTER/EDIT OR DERABLES Final Result * (ABNORMAL) Urinalysis, Complete, with Reflex to Culture (06/15/2024 2:21 PM EDT) Color Urine Yellow [facility] Appearance Urine Clear [facility] PH 7.0 5.0 - 9.0 [facility] Glucose Urine UA Negative Negative mg/dL [facility] Urine Blood Negative Negative [facility] Specific [place] - Urine >=1.030(H) 1.005 - 1.025 [facility] Urine Protein Negative Neg-Trace mg/dL [facility] Urine Ketones Negative Negative mg/dL [facility] Nitrite Urine Negative Negative [facility] Leukocyte Esterase Urine Negative Negative [facility] RBC Urine 0-2 0 - 2 /HPF [facility] Urine WBC 0-5 0 - 5 /HPF [facility] Urine Squamous Epithelial Cell 0-2 0 - 2 /HPF [facility] Urine Bacteria None Seen None Seen [facility] Hyaline Casts, Urine 0-2 0 - 2 /LPF [facility] 06/15/2024 2:21 PM EDT 06/15/2024 2:33 PM EDT Narrative [facility] - 06/15/2024 2:40 PM EDT Urine, Clean Catch us Generic External Data Provider LAB URINE ORDERAB LES Final Result Performing Organization Address City/[facility]/ZIP Co de Phone Number [facility] [address] [place] [phone] * High Sensitivity Troponin I (06/15/2024 1:16 PM EDT) TROPONIN I HIGH SENSITIVITY 12.3 <3.5 - 35.0 ng/L [facility] Comment:The Matias high sens itivity Troponin-I results should beused in conjunction with other diagnostic information suchas ECG, clinical observations and information, and patientsymptoms to aid in the diagnosis of HI. 06/15/2024 1:16 PM EDT 06/15/2024 1:18 PM EDT [facility] - 06/15/2024 1:52 PM EDT Comment RPT TROP AT 1304 us Generic External Data Provider LAB BLOOD ORDERAB LES Final Result [facility] [address] [place] [address] [phone] * XR Chest 1 View (06/15/2024 11:34 AM EDT) Anatomical Region Laterality Modality Chest Radiographic Lisset ging 06/15/2024 11:3 4 AM EDT Narrative 06/15/2024 11:35 AM EDT ? [facility] ?[address] ?[place] [address] ?XRay Report ? Signed ? Patient: Davis,Shelton ?MR#: [id number] ? : 1945 ?Acct:[id number] ? Age/Sex: 79 / M ?ADM Date: 06/15/24 ? Loc: HO.ED ? Attending Dr: ? Ordering Physician: Shira Robison ?? Date of Service: 06/15/24 ?? Procedure(s): XR chest 1V ?? Accession Number(s): [id number] ? cc: Clayton Chavez MD; Shira Robison ? CLINICAL HISTORY: weakness - unwell ? 1 view chest x-ray ? Comparison: CR/WV/SR - XR CHEST 1V - 08/29/23 13:47 [...] on ?? 06/15/2024 11:34:45 ? Dictated By: ?Abisai,Marcela MD ? Signed By: ?<Electronically signed by Marcela Barone MD in OV> ?06/15/24 1135 ? DD/ 1134 ? TD/TT: 06/15/24 1134 ? Gauger Chief Delivery: ? Procedure Note Nicole Alcazar - 06/15/2024 [address] [place] [address] XRay Report Signed Patient: Shelton Davis#: [id number] : 6Acct:[id number] Age/Sex: 79 / MADM Date: 06/15/24 Loc: HO.ED Attending Dr: Ordering Physician: Shira Robison Date of Service: 06/15/24 Procedure(s): XR chest 1V Accession Number(s): [id number] cc: Clayton Chavez MD; Shira Robison CLINICAL HISTORY: weakness - unwell 1 view chest x-ray Comparison: CR/WV/SR - XR CHEST 1V - 08/29/23 13:47 [...] 06/15/24 1135 DD/ 1134 TD/TT: 06/15/24 1134 Gauger Chief Delivery: [facility] External Provider IMG XR PROCEDURES Edited Result - Final * (ABNORMAL) Lipid Panel, Standard (12/14/2023 9:24 AM EDT) Triglycerides 93 <150 mg/dL [facility] Comment:Desirable Triglyceri de: less than 150 mg/dLBorderline High Triglyceride 150-199 mg/dLHigh Triglyceride: 200-499 mg/dLVery High Triglyceride: greater than or equal to 5OO mg/dL Cholesterol 162 <200 mg/dL [facility] Comment:Desirable Cholestero l: less than 200 mg/dLBorderline High Cholesterol: 200-239 mg/dLHigh Cholesterol: greater than 239 mg/dL LDL Cholesterol Calculated 105(H) <100 mg/dL [facility] Comment:Desirable LDL: less than 100 mg/dLNear Optimal/Above Optimal LDL: 110- 129 mg/dLBorderline High LDL: 130-159 mg/dLHigh LDL: 160-189 mg/dLVery High LDL: greater than or equal to 190 mg/dL HDL Cholesterol 39(L) >40 mg/dL [facility] Comment:Desirable HDL: great er than 40 mg/dL Note: This HDL assay may give artificially low results in patients with liver disease. Blood Venous blood specimen / Unknown 12/14/2023 9:24 AM EDT 12/14/2023 11:23 AM EDT Clayton Millard MD LAB BLOOD ORDERABLES Final Result Performing Organization Address [facility] Co de Phone Number [facility] [address] [place] [phone] * Albumin, Random Urine W/Creatinine (12/14/2023 9:20 AM EDT) Creatinine, Urine 167.95 mg/dL [facility] Microalbumin Urine 8.0 mg/L [facility] Microalbum Creatinine Ratio Ur 4.7 <30 ug/mg cr [facility] Comment:Albumin/Creatinine R atio Reference Ranges: Normal: < 30 ug/mg creatinine Microalbuminuria: 30 - 300 ug/mg creatinineClinical Albuminuria: > 300 ug/mg creatinine Urine (Urine, Random) 12/14/2023 9:20 AM EDT 12/14/2023 11:13 AM EDT Clayton Millard MD LAB URINE ORDERABLES Final Result Performing Organization Address [facility] Co de Phone Number [facility] [address] [place] [phone] * Hepatitis C Antibody with Reflex to HCV, RNA, Quantitative, Real-Time PCR (04/04/2022 10:44 AM EST) Hepatitis C Antibody NON-REACT FRANCHESCA NON-REACT FRANCHESCA [facility] Index <0.02 <1.00 [facility] [employer] [facility] Comment: HCV antibody was non-reactive. There is no laboratory evidence of HCV infection. In most cases, no further action is required. However, if recent HCV exposure is suspected, a test for HCV RNA (test code 35283) is suggested. For additional information please refer to http://education.Librato/faq/EKI67v2 (This link is being provided for informational/ educational purposes only.) Blood Venous blood specimen / Unknown 04/04/2022 10:44 AM EST 04/04/2022 10:44 AM EST Narrative [facility] - 04/05/2022 6:45 PM EST FASTING:YES FASTING: YES Clayton Millard MD LAB BLOOD ORDERABLES Final Result [facility] [address] [place] [address] [facility] [address], ([address]) [place] [address] from Last 3 Months or Most Recently Relevant to Health Maintenance Insurance [facility] [employer] (O D-SNP) [place] [id number] Care Teams Relations Specialist Relationship Specialty Start Date End Date Clayton Lyon MD [address] [place] [address] PCP - General Internal Medicine 11/12/13 Chris Leal MD [address] [place] [address] Cardiology 07/10/24 [facility] 08/18/21
--- OUTSIDE RECORDS SUMMARY | 2024-07-24 09:53 | XMS_ITS | Encounter Summary ---
Author Organization [employer] Address [address] [place] [address] Care Team Providers Care Business Writer Name Role Phone Clayton Lyon MD Primary Care Provide r Chris Leal MD Unavailable [phone] Reason for Visit * Reason Onset Date Comments In person triage 07/23/2024 Encounter Details Date Type Department Care Team ([facility] Contact Info) Description 07/23/2024 Telephone [facility] [address] [place] [phone] Clayton Lyon MD [address] [place], [place] [phone] In person triage Social History Tobacco Use Types Packs/Day Years [...] encounter Miscellaneous Notes * Telephone Encounter - Deb Parnell RN - 07/23/2024 9:47 AM EDT Patient states he came to the clinic to have labs drawn and after that he felt short of breath. Patient states he was recently discharged from the hospital and his fishing rod trimmer will see him on July 25. He denies any chest pain at this time denies any dizziness only complaint is shortness of breath. Patient states he feels better now and doesn't want to be evaluated by a provider he states he just had a feeling of trying to catch his breath after his labs were drawn and feels well now. He wanted someone to check his BP and doesn't feel as if he needs to be evaluated by a provider. Reviewed ED precautions with pt and he states that he will call an ambulance if he can't breath or develops chest pain. BP 130/97, HR 65, O2 97 on room air, RR 16, temp 97.6 documented in this encounter Plan of Treatment Upcoming Encounters Date Type Department Care Team (Late st Contact Info) Description 08/13/2024 9:15 AM EDT Office Visit [facility] [address] [place] [address] Clayton Lyon MD [address] [place] [address] documented as of this encounter Visit Diagnoses Not on filedocumented in this encounter Additional Health Concerns Assessment Noted Time PHQ-9 Depression Total Score: 0 12/12/19 24 10:28 AM EDT documented as of this encounter Care Teams Business Writer Relationship Specialty Start Date End Date Clayton Lyon MD [address] [place] [address] PCP - General Internal Medicine 11/12/13 Chris Leal MD [address] [place] [address] Cardiology 07/10/24 [facility] 08/18/21 documented as of this encounter
--- OUTSIDE RECORDS SUMMARY | 2024-07-24 09:53 | XMS_ITS | Encounter Summary ---
Author Organization [employer] Address [address] [facility] 7t [place] [address] Care Team Providers Care Contracts Analyst Name Role Phone Clayton Lyon MD Primary Care Provide r Chris Leal MD Unavailable [phone] Reason for Visit * Reason Onset Date Comments Hospital Follow-up 06/20/2024 Encounter Details Date Type Department Care Team ([facility] st Contact Info) Description 06/20/2024 Telephone [facility] [address] [place], [place] [phone] Clayton Lyon MD [address] [place], [place] [phone] Hospital Follow-up Social History Tobacco Use Types [...] EDT Tc from pt returning phone call. [phone] * Telephone Encounter - Jade Zaidi - 06/20/2024 9:42 AM EDT Tc from pt requesting a F appt. [place]: [facility] Date of admission: 06/15/2024 Discharge date: 06/19/2024 Diagnosed: Cardiomyopathy heart working 20 % severe heart failure Atrial fibrillation with RVR Pneumonia Diverticulitis *Send message to [place] Clinical Care Coordinators documented in this encounter Plan of Treatment Upcoming Encounters Date Type Department Care Team (Late st Contact Info) Description 08/13/2024 9:15 AM EDT Office Visit [facility] [address] [place] [address] Clayton Lyon MD [address] [place] [address] documented as of this encounter Visit Diagnoses Not on filedocumented in this encounter Additional Health Concerns Assessment Noted Time PHQ-9 Depression Total Score: 0 12/12/19 24 10:28 AM EDT documented as of this encounter Care Teams Contracts Analyst Relationship Specialty Start Date End Date Clayton Lyon MD [address] [place] [address] PCP - General Internal Medicine 11/12/13 Chris Leal MD [address] [place] [address] Cardiology 07/10/24 [facility] 08/18/21 documented as of this encounter
--- OUTSIDE RECORDS SUMMARY | 2024-07-24 09:53 | XMS_ITS | Clinical Summary ---
Author Organization [facility] [facility] ity Address [address] [place] [address] Care Team Providers Care Application Manager Name Role Phone Clayton Chavez MD Primary [...] age to complete this topic Care Teams Application Manager Relationship Specialty Start Date End Date Clayton Chavez MD [address] [place] [address] [place] [address] PCP - General Internal Medicine 06/26/14
--- OUTSIDE RECORDS SUMMARY | 2024-07-24 09:53 | XMS_ITS | Encounter Summary ---
Author Organization [facility] Address [address] [place] [address] 7t [place] [address] Care Team Providers Care Truck Body Builder Name Role Phone Clayton Lyon MD Primary Care Provide r Chris Leal MD Unavailable [phone] Encounter Details Date Type Department Care Team (Latest Contact Info) Description 10/16/2020 Abstract [facility] CONVERSIONS Dental, Provider, DDS Social History Tobacco [...] Description 08/13/2024 9:15 AM EDT Office Visit [facility] MEDICINE [address] [place] [address] Clayton Lyon MD [address] [place] [address] documented as of this encounter Visit Diagnoses Not on filedocumented in this encounter Care Teams Truck Body Builder Relationship Specialty Start Date End Date Clayton Lyon MD [address] [place] [address] PCP - General Internal Medicine 11/12/13 Chris Leal MD [address] [place] [address] Cardiology 07/10/24 [facility] 08/18/21 documented as of this encounter
[2024-07-24 11:34] LABS: B Type Natriuretic Peptide 322 pg/mL (<100)
== END 2024-07-24 09:17 | disposition home or self-care (01) ==
LOC: HO.HHCL 09:16
PROVIDERS: Visit Provider Internal Medicine Cardiovascular Disease
DX: R93.1 Abnormal findings on diagnostic imaging of heart and coronary circulation (principal)
CPT/HCPCS: 36415; 83880

== ENCOUNTER 2024-09-09 09:26 | Outpatient (REF) | payer OTHER, SELFPAY ==
--- OUTSIDE RECORDS SUMMARY | 2024-09-09 10:12 | XMS_ITS ---
Author Organization [facility] Address [address] [place] [address] Care Team Providers Care It Professional Name Role Phone Dawson Millard MD, Clayton Primary Care Provide r Glenn Thompson Jr Unavailable REASON FOR VISIT bowel prep Encounters Encounter Location Date Provider Diagnosis [facility] [address] [place] [phone] 07/08/2024 Glenn Monroy Jr Plan Of Treatment No Information Progress Notes * ROBB PADRONDOB:1945 ( 79 yo M)Acc No.[id number]:07/08/2024 Patient:?ROBB PADRON :1945???Age:79 Y???Sex:Male Address:[address], [place] [address] * true * Date:? Generated for Sawyeri gilma/Codie/eTransmitting on:?09/09/2024 07:49 AM EDT
[2024-09-09 11:45] LABS: Cholesterol 187 mg/dL (<200); HDL Cholesterol 32 mg/dL (>40); LDL Cholesterol Calculated 118 mg/dL (<100); Triglycerides 186 mg/dL (<150)
== END 2024-09-09 09:27 | disposition home or self-care (01) ==
LOC: HO.HHCL 09:26
PROVIDERS: Visit Provider Internal Medicine
DX: E78.00 Pure hypercholesterolemia, unspecified (principal)
CPT/HCPCS: 36415; 80061

== ENCOUNTER 2024-09-19 10:03 | Outpatient (REF) | payer OTHER, SELFPAY ==
--- NOTE | ~2024-09-19 | XR_ITS ---
EXAMINATION: XR CHEST CLINICAL INFORMATION: restrictive lung disease COMPARISON: 06/15/2024. TECHNIQUE: 2 views of the chest were obtained. FINDINGS: The cardiac, hilar, and mediastinal contours are normal. Aortic mural calcification. The lungs are clear bilaterally. No interstitial abnormalities. There is no pneumothorax or pleural effusion. There is no focal osseous or soft tissue abnormality. Mild degenerative changes throughout the spine and involving both shoulder joints. XR/XR chest 2V IMPRESSION: No active pulmonary disease. Electronically signed by: Peter Briggs MD 09/19/2024 10:29 AM EDT
== END 2024-09-19 10:04 | disposition home or self-care (01) ==
LOC: HO.HHCX 10:03
PROVIDERS: PCP Internal Medicine; Visit Provider Internal Medicine
DX: J98.4 Other disorders of lung (principal)
CPT/HCPCS: 71046

== ENCOUNTER → 2024-09-19 10:11 | Outpatient (BNV) | payer OTHER, SELFPAY | PROVIDERS: PCP Internal Medicine; Visit Provider Radiology Diagnostic Radiology | DX: M19.019 Primary osteoarthritis, unspecified shoulder (principal) | CPT/HCPCS: 71046 ==

== ENCOUNTER 2024-10-18 11:46 | Outpatient (REF) | payer OTHER, SELFPAY ==
--- OUTSIDE RECORDS SUMMARY | 2023-09-22 05:20 | XMS_ITS ---
Author Organization [facility] Address [address] [place] [phone] Care Team Providers Care String Laster Name Role Phone Dawson Millard MD, Clayton Primary Care Provide r Glenn Thompson Jr Unavailable [phone] REASON FOR VISIT gerd Problems Problem Type SNOMED Code ICD Code Onset Dates Problem Status W/U Status Risk Notes Problem Gastro-esophagea l reflux disease without esophagitis (509722114) Gastro-esophage al reflux disease without esophagitis (K21.9) Active confirmed Encounters Encounter Location Date Provider Diagnosis [facility] [place] [address] [place] [id number] 09/22/2023 Glenn Monroy Jr Gastro-esophageal reflux disease without esophagitis K21.9 Assessments Encounter Date Diagnosis (ICD Code) Assessment Notes Treatment Notes Treatment Clinical Notes Section Notes 09/22/2023 Gastro-esophagea l reflux disease without esophagitis (ICD-10 - K21.9) Plan Of Treatment No Information Progress Notes * ROBB PADRONDOB:1945 ( 79 yo M)Acc No.[id number]:09/22/2023 EGD/MAC Patient: ROBB GONZALEZ Provider: Rich Monroy MD :1945 A ge:78 Y S ex:Male Date:09/22/2023 Address:[address], [id number] Pcp:Clayton valdovinos MD Subjective: * Chief Complaints: [...] 0 09/22/2023 Generated for Santosh dillard/Codie/Manishaitting on: 0 10/18/2024 11:51 AM EDT
--- OUTSIDE RECORDS SUMMARY | 2024-10-18 11:52 | XMS_ITS | Data Portability ---
Author Organization [facility] Address [address] [place] [address] Care Team Providers Care Filler Room Attendant Name Role Phone HIM CCA OTHER Assessment [...] been taking tylenol and occasional oxycodone. VSS. Assistant Facility Manager on site reports bruising over the shoulder, [...] Name and Address Organization Details Recorded Time 63587 lisinopri l medicatio n Not available Not available Not available 06/12/2024 22279 RxNorm Not Available [facility] - production 5 13:30:19 18172 gabapenti n medicatio n Not available Not available Not available 06/12/2024 10163 RxNorm Not Available [employer] [facility] 5 13:30:19 51667 Xanax medicatio n Not available Not available Not available 06/12/202484144 3 RxNorm Harriett Cortez MD [address] [place] [address],[address], [place], [phone], [facility] 5 14:56:19 27528 oxycodone medicatio n Not available Not available Not available 06/12/2024 7804 RxNorm Harriett Cortez MD [address] [place] [address],[address], [place], [phone], [facility] 5 14:56:24 89875 acetamino phen / oxycodone medicatio n Not available Not available Not available 06/12/2024 89426 3 RxNorm Not Available [facility] - production 15:37:05 Medications Name Sig Start [...] Available No t Available Vitals Date Recorded Respiratory rate Oxygen saturation Oxygen saturation in Arterial blood by Pulse oximetry Heart rate Body temperature Systolic And Diastolic Provider Name and Address Organization Details Last Updated DateTime 5 18 /min 96 % 96 % 63 /min 98.6 [degF] 145/96 mm[Hg] Not Available [facility] 5 14:47:09 Date Recorded Oxygen saturation Oxygen saturation in Arterial blood by Pulse oximetry Respiratory rate Body temperature Heart rate Systolic And Diastolic Provider Name and Address Organization Details Last Updated DateTime 4 99 % 99 % 16 /min 98.1 [degF] 67 /min 132/80 mm[Hg] Not Available [employer] 4 12:49:57 Social History None recorded. Functional Status None recorded. Mental Status None recorded. Family History Nothing Reported. Medical History No medical history recorded. Past Encounters Encounter ID Performer Location Encounter Start Date Encounter Closed Date Diagnosis/Indication Diagnosis SNOMED-CT Code Diagnosis ICD10 Code Diagnosis Note [id number] Destiny Patel MD [facility] [address] [place] [phone] 09/01/2023 12:46:34 11/21/2023 14:15:14 Muscle pain 44543137 M79.10 [id number] Harriett Cortez MD [facility] [address] [place] [phone] 06/12/2024 14:44:38 06/12/2024 22:02:59 Hypertensive disorder 68736958 I10 Evaluation in the field was performed by my hotel security officer colleague, as noted above, I provided real-time direction and supervisio n for this visit.This is a 79yo M with PMHx HTN seen at [facility] ED 05/25 for headache, dizziness, and nausea [...] Recorded Advance Directives Directive None Recorded Payers Insurance Date Sequence Insurance Name Policy Number Policy Leblanc Covered Member ID Leblanc Member ID Guarantor Name 06/12/2024 1 [facility] - DOS ON OR AFTER 2022 - DUAL ELIGIBLE - LONG TERM OPTIONS AND ONE CARE (MEDICARE REPLACEMENT/ADV ANTAGE - HMO) Shelton Davis [id number] Shelton Davis Notes Date Note Type Note Provider Name and Address Organization Details Recorded Time 09/01/2023 text/html HPI: ROSSY is a very pleasant 78 Burundian speaking y/o male with a PMH of, but not limited to: DM II, anxiety, depression, HTN, asthma, OA, GERD, HLD, cardiomyopathy, cervical spondylosis, lower back pain, lumbar disc degeneration, and hx CVA. MBR reports that he fell in his bathroom this past Monday. He had a +head strike without LOC and additional injuries to his upper back, neck, R shoulder, and R elbow. He reports significant bruising/swelling to his shoulder and elbow, but no open wounds. ROSSY presented to [facility] on the day of the fall for assessment. He had a CT of the head and multiple Xrays. All imaging was negative and MBR was subsequently sent home. Today, MBR reports increased neck and upper back pain, which is causing him to have difficulty sleeping. He denies CP, SOB, fevers, headaches, visual disturbances, dizziness, or N/T to upper/lower extremities. He is walking without difficulty, but must go slowly due to the pain. MBR is requesting an [facility] in-home visit [...] do so. MBR can be reached at [phone]. .................. .................. .................. .................. .................. .................. .................. ............... CRC Nurse Triage Notes (Rosy Corona): Comments: CRC RN did not require any additional information to process this visit. .................. .................. .................. .................. .................. .................. .................. ............... Assistant Facility Manager Note From Hitesh Araiza: Dispatched to the [...] .................. .................. .................. .................. ............... Disposition: Fallon Patel MD [address] [facility], [place], [address], [place] [employer] 11/20/2023 19:41:13 06/12/2024 text/html CRC Nurse Triage Notes (Laine Horowitz): Reason For Request: Patient has blood pressure problems, headache, weak. Denies: History of Heart Attack, in the setting of active chest pain Active Chest pain, radiates to neck jaw and or arm Diaphoretic/Sweati ng Describes as crushing Sudden onset of nausea/Vomiting and shortness of breath. Shortness of Breath Unable to speak in full sentences without distress Chief Complaints: High Blood Pressure, Nausea / Vomiting, Weakness, Headache PMH: Hypertension, Stroke PMH Reviewed at 06/12/2024 Allergies Reviewed at 06/12/2024: Comments: Patient reporting high blood pressur. c/o headache, weakness, shortness of breath and N/V since 05/25. Only reporting nausea at this time. Went to ER at [facility] on 05/25. Currently taking Metoprolol daily. Agricultural Extension Specialist instructed patient to increase dose to 2 tablets daily. Denies chest pain. Education provided on the response time and the member was advised to monitor reported s/s and seek emergency treatment if needed. .................. .................. .................. .................. .................. .................. .................. ............... Assistant Facility Manager Note From Nadine Bennett: Sent to a call for a pt complaining of hypertension. SC8 arrives on scene, pt is alert and oriented, airway is patent. Pt complains of hypertension along with the following intermittent symptoms since 05/25: headache, feeling off balance, sob, and nausea. Pt denies cp, vomiting, diarrhea, abd pain, fever, or loc. Pt states he was evaluated at [facility] ED on 05/25 and by Agricultural Extension Specialist on 06/07. Pt states his Metoprolol dosage was increased from 25mg to 50mg PO. (sitting) BP:145/96, P:63, RR:18, SpO2:96% RA, T:98.6; (standing) BP:147/101, P:63; Head: unremarkable; Lung sounds: clear bilaterally; Abdomen: soft, non-tender, no distention; Back: unremarkable; Extremities: unremarkable; Skin: pink, warm, dry; Pt requests transport to [facility] for re-evaluation. [facility] contacted and advised of pt's wishes. 911 called; [facility] .................. .................. .................. .................. .................. .................. .................. ............... [facility] Consulted: Harriett Cortez .................. .................. .................. .................. .................. .................. .................. ............... Disposition: Fulfilled Harriett Cortez MD [address] [place] [address],[address], [place], [address], [facility] - [facility] 06/12/2024 15:48:07
--- OUTSIDE RECORDS SUMMARY | 2024-10-18 11:52 | XMS_ITS | Clinical Summary ---
Author Organization [employer] [facility] ity Address [address] [place] [address] Care Team Providers Care Broadcast Maintenance Engineer Name Role Phone Clayton Chavez MD [...] series) 2021 Cholesterol Screening (Lipid Panel) 03/06/2022 Falls Risk Assessment 03/06/2022 Hepatitis C Screening 03/06/2022 Social Influencers of Health Screening 03/06/2022 COVID-19 Vaccine (1 - 2023-2 5 season) 2023 Depression Screening 03/27/2024 Influenza Vaccine (#1) 2024 0, 01/08/2019 HIB Vaccines Aged Out No [...] age to complete this topic Care Teams Broadcast Maintenance Engineer Relationship Specialty Start Date End Date Clayton Chavez MD [address] [place] [address] [facility] [place] [address] PCP - General Internal Medicine 06/26/14
--- OUTSIDE RECORDS SUMMARY | 2024-10-18 11:52 | XMS_ITS | Clinical Summary ---
Author Organization [employer] Address [address] [place] [address] [address] [place] [address] Care Team Providers Care Senior Wind Energy Consultant Name Role Phone Clayton Lyon MD Primary Care Provide r Chris Leal MD Unavailable [phone] Allergies Active Allergy Reactions Criticality Noted Date Comments Alprazolam 03/28/2022 Dicyclomine 12/19/2017 Gabapentin 03/28/2022 Lisinopril 05/17/2016 Oxycodone 03/28/2022 Medications timolol (Timoptic) 0.5 % ophthalmic solution PLACE 1 DROP IN THE RIGHT EYE EVERY MORNING 12/23/19 22 Active pantoprazole (ProtoNix) 40 MG EC tablet Take 40 mg by mouth 2 times daily. 03/01/20 22 Active Blood Glucose Monitoring Suppl (NetMinderStyle [place] Lite) w/Device kit USE FOR TEST BLOOD SUGAR EVERY DAY 05/28/19 22 Active atorvastatin (Lipitor) 80 MG tablet Take 80 mg by mouth in the morning. 10/15/19 22 Active Ventolin HFA 108 (90 Base) MCG/ACT inhalerIndicat ions:Restricti ve lung disease INHALE 2 PUFFS BY MOUTH EVERY 4 HOURS NEEDED FOR WHEEZING OR SHORTNESS OF BREATH 18 g 1 04/16/19 25 Active Eliquis 5 MG tablet Take 1 tablet by mouth 2 times daily. 06/20/19 25 Active digoxin (Lanoxin) 125 MCG tablet Take 1 tablet by mouth Once per day. 06/20/19 25 Active Vericiguat 2.5 MG tablet Take 2.5 mg by mouth Once per day. 07/12/19 25 Active empagliflozin (Jardiance) 10 MG Take 10 mg by mouth Once per day. 07/12/19 25 Active metoprolol tartrate (Lopressor) 50 MG tablet Take 50 mg by mouth 1 (one) time each day. 07/12/19 25 Active fluticasone (Flonase) 50 MCG/ACT nasal spray Administer 2 sprays into each nostril Once per day. Shake gently. Before first use, prime pump. After use, clean tip and replace cap. 16 g 3 08/16/19 25 026 Active Multiple Vitamin (Multivitamin) tabletIndicati ons:Fatigue due to excessive exertion, sequela TAKE 1 TABLET BY MOUTH EVERY MORNING 90 tablet 09/07/19 25 Active triamcinolone (Kenalog) 0.1 % creamIndicatio ns:Pityriasis rosea Apply topically if needed in the morning and at bedtime (pain and swelling). 30 g 2 09/07/19 25 Active albuterol (2.5 MG/3ML) 0.083% nebulizer solutionIndica tions:Bronchit is INJECT 1 AMPULE USING A NEBULIZER EVERY 6 HOURS NEEDED FOR WHEEZING 90 mL 1 09/07/19 25 Active Entresto 24-26 MG tablet Take 1 tablet by mouth 2 times daily. 08/23/19 25 Active Ascorbic Acid (vitamin C) 1000 MG tablet Take 1 tablet by mouth Once per day. Active cholecalcifero l (Vitamin D3) 25 MCG (1000 UT) tablet Take 1 tablet by mouth Once per day. Active TRUEplus Lancets 33G misc TEST BLOOD SUGAR TWICE A DAY 100 each 11 09/18/19 25 Active FREESTYLE LITE test strip USE TO TEST BLOOD SUGAR TWICE DAILY DIRECTED 100 each 09/20/19 25 Active cetirizine (ZyrTEC) 10 MG tabletIndicati ons:Seasonal allergies Take 0.5 tablets (5 mg) by mouth Once per day. 15 tablet 3 09/20/19 25 Active FREESTYLE LITE test strip USE TO TEST BLOOD SUGAR TWICE DAILY DIRECTED 12/17/19 22 025 Discontinued(Re order (will not trigger notification to Pharmacy)) amitriptyline (Elavil) 25 MG tablet Take 25 mg by mouth at bedtime. 12/10/19 22 025 Discontinued(Th erapy completed) metFORMIN XR (Glucophage-XR ) 500 MG 24 hr tabletIndicati ons:Type 2 diabetes mellitus without complication, without long-term current use of insulin ([facility]) TAKE 1 TABLET BY MOUTH EVERY EVENING WITH FOOD 30 tablet 6 02/09/20 23 025 Discontinued(Melquiades herrera refused) cetirizine (ZyrTEC) 10 MG tablet Take 0.5 tablets (5 mg) by mouth Once per day. 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 EKG and Trop negative on presentation. CT head and neck negative. Orthostatic reported normal on presentation but tested positive on repeat with drop in BP, tachycardia and reporting dizziness. Improved with IV fluids bolus and Holding Metoprolol. He went breifly into Afib w RvR improved back to controlled rate. During the Hospitalization entresto was discontinued He also reported Abdominal pain that resolved at time of admission. likely related to low BP event. 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 Vascular surgery evaluated the patient and recommended no intervention now. consider outpatient follow up as needed. Plan was to continue Metoprolol, Eliquis, Digoxin. Chronic systolic heart failure 08/13/2024 Assessment & Plan (08/13/2024 9:21 AM EDT): Pt with Chronic systolic heart failure. EF of 20%. He has no hypoxia or edema. While in the Hospital his Entresto was held and was kept on Jardiance Atrial fibrillation 07/01/2024 Assessment & Plan (09/19/2024 9:27 AM EDT): Pt here for a follow up, recently hospitalized and diagnosed with A.Fib with RVR. Under the care of Chief Console Operator Dr. Leal who has recommended Cardioversion, done 08/18/2024, unfortunately went back to Afib. Seen by Cardiology 09/09/2024 who now recommended ablation [place] [facility] Assessment & Plan (08/13/2024 9:10 AM EDT): Pt recently hospitalized and diagnosed with A.Fib with RVR. Under the care of Chief Console Operator Dr. Leal who has recommended Cardioversion Diverticulosis 04/30/2024 Assessment & Plan (04/30/2024 9:22 [...] (11/01/2022 10:24 AM EDT): Pt seen by Plastic Surgeon Dr Garcia He reviewed his laboratory results That included: CRP, RF, ESR and DAVIE were all Normal His assessment was that patient had fibromyalgia Right hand pain 11/01/2022 Assessment & Plan (02/14/2023 10:24 AM EST): Patient with painful right index finger, difficulty bending it. Seen at [facility] received steroid injections with good results 11/24/2022 Assessment & Plan (11/01/2022 10:25 AM EDT): Patient with painful right index finger, difficulty bending it. Seen in the past at [facility] received steroid injections with good results Pt would like to go back Grade II hemorrhoids 11/01/2022 Assessment & Plan (02/14/2023 10:24 AM EST): Evaluated by Dr Carney 10/2022 opted for conservative measures Assessment & Plan (11/01/2022 10:32 AM EDT): Patient with c/o BRBPR Exam indicative of hemorrhoids Plan: Increase fluid, fiber in diet Proctosl H Referral to Dr Carney [facility] care 08/02/2022 Assessment & Plan (03/07/2024 9:56 [...] EST): Pt seen in the ER at [facility] yesterday with cough, diagnosed with bronchitis. Treated [...] shoulder pain. Seen in the past at [facility], last seen 02/27/2019 received a steroid [...] Restrictive lung disease 03/28/2022 Assessment & Plan (09/19/2024 9:46 AM EDT): Pt with intermittent cough associated with sob, seen in the ER diagnosed with ? Mild persistent asthma. Seen by Dr. Edouard for a HDF and recommended PFTs. PFts done in 07/2018 showed: Restrictive pulmonary disorder, moderately severe. No significant obstructive airway disorder. Clinical correlation recommended. Pt was seen by Closing Machine Operator 08/2018 who thought this was due to [...] subpleural lymph node. Mild coronary artery calcification. Plan: Repeat Chest x-ray Assessment & Plan (03/29/2022 12:46 PM EST): Pt with intermittent cough associated with sob, seen in the ER diagnosed with ? Mild persistent asthma. Seen by Dr. Edouard for a HDF and recommended PFTs. PFts done in 07/2018 showed: Restrictive pulmonary disorder, moderately severe. No significant obstructive airway disorder. Clinical correlation recommended. Pt was seen by Closing Machine Operator 08/2018 who thought this was due to [...] hyperlipidemia (CM S/HCC) 03/28/2022 Assessment & Plan (09/19/2024 9:51 AM EDT): Patient is here for a follow up, doing well, he stopped Metformin on his own Hgb A1c :6.2 Pt is on Jardiance 10 mg po daily Pt reports compliance with Asa 81 mg po daily Foot check today is risk of: zero Plan: continue current regimen Pt educated about DM Pt advised to: adhere to diabetic diet check your blood sugars regularly check your feet on a daily basis. f/u 4 months Assessment & Plan (08/13/2024 9:11 AM EDT): Patient is here for a follow up, doing well Hgb A1c : from 6.6 He is on Metformin XR 500 mg po daily Pt reports compliance with Asa 81 mg po daily Foot check today is risk of: zero Plan: continue current regimen Pt educated about DM Pt advised to: adhere to diabetic diet check your blood sugars regularly check your feet on a daily basis. f/u 4 months Assessment & Plan (04/30/2024 9:35 AM EST): [...] months Essential hypertension 04/02/2018 Assessment & Plan (09/19/2024 9:23 AM EDT): Patient is here for a follow up BP remains under control He is on a regimen of: Metoprolol XL 50 mg po daily and Entresto (restarted by Cardiology) Given adequate blood pressure control will continue with current regimen Most recent electrolytes, Bun and Creatinine done on: Lab Results Component Value Date NA 140 07/08/2024 NA 140 01/05/2024 K 4.6 07/08/2024 K 4.8 01/05/2024 CL 106 07/08/2024 CL 104 01/05/2024 BUN 10 07/08/2024 BUN 10 01/05/2024 CREATININE 0.94 07/08/2024 CREATININE 0.86 01/05/2024 were wnl. patient advised to adhere to a low sodium diet, encouraged about medication compliance, counseled about weight loss. Assessment & Plan (08/13/2024 9:16 AM EDT): Patient is here for a follow up BP remains under control He is on a regimen of: Metoprolol XL 50 mg po daily Given adequate blood pressure control will continue with current regimen Most recent electrolytes, Bun and Creatinine done on: Lab Results Component Value Date NA 140 07/08/2024 NA 140 01/05/2024 K 4.6 07/08/2024 K 4.8 01/05/2024 CL 106 07/08/2024 CL 104 01/05/2024 BUN 10 07/08/2024 BUN 10 01/05/2024 CREATININE 0.94 07/08/2024 CREATININE 0.86 01/05/2024 were wnl. patient advised to adhere to a low sodium diet, encouraged about medication compliance, counseled about weight loss. Assessment & Plan (03/07/2024 9:56 AM EST): [...] of his LS spine done showed: 1. Tnuf-mv-xyhpgkqv loss of disc height at L4-L5 with a right paracentral disc extrusion resulting in mass effect upon the right L5 nerve root. Mild central canal stenosis. Broad-based left lateral disc protrusion and endplate spurring abutting the exiting left L4 nerve root. Ktkm-mm-uvidjgsg bilateral foraminal narrowing. 2. Mild spondylitic changes at other disc levels as described. No central canal stenosis. Pt has a f/u with them Chronic neck pain 12/20/2011 Depressive disorder 09/07/2011 Hypercholesterolemia 09/07/2011 Assessment & Plan (09/19/2024 9:52 AM EDT): Patient with elevated lipids. Most recent lipid profile from: Lab Results Component Value Date TRIG 186 (H) 09/09/2024 TRIG 93 12/14/2023 CHOL 187 09/09/2024 CHOL 162 12/14/2023 LDLCHOLCAL 118 (H) 09/09/2024 LDLCHOLCAL 105 (H) 12/14/2023 HDL 32 (L) 09/09/2024 HDL 39 (L) 12/14/2023 Currently on a regimen of: Lipitor 80 mg po qhs. Continue current regimen. Advised to try to adhere to a low cholesterol diet, counseled and educated about diet and exercise, Patient encouraged to come up with a personal goal for weight loss. Assessment & Plan (08/13/2024 1:33 PM EDT): Patient with elevated lipids. Most recent lipid profile from: Lab Results Component Value Date TRIG 93 12/14/2023 TRIG 145 02/14/2023 CHOL 162 12/14/2023 CHOL 241 (H) 02/14/2023 LDLCHOLCAL 105 (H) 12/14/2023 LDLCHOLCAL 173 (H) 02/14/2023 HDL 39 (L) 12/14/2023 HDL 39 (L) 02/14/2023 Currently on a regimen of: Lipitor 80 mg po qhs. Continue current regimen.Repeat Lipid proflie Advised to try to adhere to a low cholesterol diet, counseled and educated about diet and exercise, Patient encouraged to come up with a personal goal for weight loss. Assessment & Plan (03/07/2024 9:55 AM EST): [...] Encounters Date Type Department Care Team Description 10/11/2024 9:30 AM EDT Telemedicine [facility] [address] [place] [id number] Ban Toribio, Lam 09/21/2024 Results Follow-Up [address] [address] Clayton Lyon MD XR Chest 2 Views 09/19/2024 9:15 AM EDT Office Visit [facility] [address] [place] [phone] Clayton Lyon MD Essential hypertension (Primary Dx); 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) (CMS/HCC); Paroxysmal atrial fibrillation (CMS/HCC); Restrictive lung disease; Seasonal allergies; Hypercholesterolemia 09/19/2024 Travel 09/18/2024 Telephone [facility] [address] [place] [phone] Danielle West AL Chart Prep 09/18/2024 Refill [facility] [address] [place] [address] Clayton Lyon MD 09/18/[address] [address] Clayton Lyon MD telephone call 09/18/2024 Refill [facility] [address] [place] [address] Clayton Lyon MD 09/17/2024 Refill [facility] [address] [place] [address] Clayton Lyon MD 09/06/2024 11:15 AM EDT Office Visit [facility] [address] [place] [phone] Carter Edouard MD Dermatitis (Primary Dx); Pityriasis rosea 09/06/2024 Refill [facility] [address] [place] [address] Clayton Lyon MD Bronchitis 09/06/2024 Travel 09/05/2024 Refill [facility] [address] [place] [address] Kirk Whitten MD Fatigue due to excessive exertion, sequela 09/05/2024 Telephone [facility] [address] [place] [address] Clayton Lyon MD Call Back Request 08/23/2024 Telephone [facility] [address] [place] [address] Clayton Lyon MD Nurse Triage 08/15/2024 2:00 PM EDT Office Visit [facility] [address] [place] [phone] Jennie Zhu DO Acute URI (Primary Dx) 08/15/2024 Travel 08/13/2024 9:15 AM EDT Office Visit [address] [address] Clayton Lyon MD Paroxysmal atrial fibrillation (CMS/HCC) (Primary Dx); 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) (CMS/HCC); Essential hypertension; Celiac artery compression syndrome (CMS/HCC); Chronic systolic heart failure (CMS/HCC); Hypercholesterolemia 08/13/2024 Travel 08/12/2024 Telephone [facility] [address] [place] [phone] Clayton Lyon MD Chart Prep 08/06/2024 Telephone [facility] [address] [place] [phone] Clayton Lyon MD 07/23/2024 Telephone [facility] [address] [place] [phone] Clayton Lyon MD In person triage from Last 3 Months Immunizations Immunization Administration Dates Next Due Influenza High-dose Quadriva lent Preservative Free 02/14/2023,01/22/2020 Influenza injectable quadriv alent IIV4 with preservative 04/20/2017 Influenza injectable quadriv alent preservative free 04/27/2021,01/08/2019,05/17/2016 Influenza, High Dose Seasona l, Preservative Free 12/05/2023,12/19/2017 Influenza, IIV3, injectable 11/25/2020,1 ,12/26/2018,12/25,11/25/2009 Moderna Covid-19 Vaccine 12+ 08/29/2020 Pneumococcal Conjugate PCV 13 01/21/2016 Pneumococcal Conjugate PCV 20 09/09/2024 Pneumococcal Polysaccharide PPSV23 08/17/2017 RSV Bivalent 09/09/2024 TD (adult), 2 Lf tetanus tox oid, preservative free, adsorbed 12/12/2023,07/24/2012 Tdap 03/22/2013 Zoster, Recombinant 10/01/2020,05/07/2019 Zoster, live 06/26/2014 Social History Tobacco Use Types Packs/Day Years Used Date Smoking Tobacco: Former Cigarettes Q uit: 03/21/2001 Passive Smoke Exposure: Past Smokeless Tobacco: Former Tobacco Cessation:Counseling Given: Not Answered Alcohol Use Standard Drinks/Week Comments Never 0 (1 standard drink = 0.6 oz pur e alcohol) Depression Answer Date Recorded Patient Health Questionnaire-9 Score 0 09/19/2024 Patient Health Questionnaire-9 Score 0 09/19/2024 Last PHQ-9: Questionnaire Data Not on file 0 09/19/2024 Housing Stability Answer Date Recorded What is [...] Date Recorded Patient Health Questionnaire-2 Score 0 09/19/2024 Internet Access Answer Date Recorded Internet Access [...] Sign Reading Time Taken Comments Blood Pressure 111/77 10/11/2024 10:39 AM EDT Home BP reading Pulse 61 10/11/2024 10:39 AM EDT Home HR reading Temperature 36.1 C (96.9 F) 09/19/2024 9:17 AM EDT Respiratory Rate 20 09/19/2024 9:17 AM EDT Oxygen Saturation 96% 09/19/2024 9:1 7 AM EDT Inhaled Oxygen Concentration - - Weight 71.4 kg (157 lb 6.4 oz) 09/19/2024 9:17 AM EDT Height 170.2 cm (5' 7 ) 09/19/2024 9:17 AM EDT Body Mass Index 24.65 09/19/2024 9:17 AM EDT Plan of Treatment Upcoming Encounters Date Type Department Care Team (Late st Contact Info) Description 12/17/2024 10:00 AM EDT Office Visit [facility] [address] [place] [phone] Clayton Lyon MD [address] [place] [address] 10/10/2025 9:30 AM EDT Medication Management [facility] [address] [place] [phone] Ban Toribio, PharmD [address] [place] [address] Health Maintenance Due Date Last Done Comments Eye Exam 01/11/1955 COVID-19 Vaccine ( season) 2023 04/27/2021, 08/29/2020, 08/01/2020 Influenza Vaccine (#1) 2024 , 02/14/2023, 04/27/2021, Additional history exists Diabetes: Foot Exam 12/11/2024 12/12/2023, 12/12/2023, 12/12/2023 Diabetes: Urine Protein Screening 12/13/2024 12/14/2023, 04/04/2022, 06/10/2021 Diabetes: Hemoglobin A1C 12/31/2024 025, 03/07/2024, 12/12/2023, Additional history exists Alcohol/Substance Use Screening 03/07/2025 03/07/2024 SDOH Screening 04/16/2025 04/16/2024 Lipid Panel 09/09/2025 09/09/2024, 11/25, 02/14/2023, Additional history exists Depression Screening 09/19/2025 09/19/2024, 09/20/19 25 Tobacco Screening 09/19/2025 09/19/2024 DTaP/Tdap/Td Vaccines (3 - Td or Tdap) 12/11/2033 12/12/2023, 03/22/2013, 07/24/2012 Zoster Vaccines Completed 10/01/2020, 04/27, 06/26/2014 Hepatitis C Screening Completed 04/04/2022, 020 Pneumococcal Vaccine: 50+ Years Completed 09/09/2024, 08/17/2017, 01/21/2016 RSV Patients and Patients Aged 60 years or older Completed 09/09/2024 HIB Vaccines Aged Out No longer eligi [...] Procedure Name Priority Date/Time Associated Diagnosis Comments XR CHEST 2 VIEWS Routine 09/19/2024 9:32 AM EDT Restrictive lung disease POCT GLUCOSE Routine 09/19/2024 9:24 AM EDT 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) (CMS/HCC) LIPID PANEL, STANDARD Routine 09/09/2024 9:27 AM EDT Hypercholesterolemia POC WARREN ID NOW STREP A Routine 08/15/2024 2:42 PM EDT Acute URI POCT INFLUENZA B (ID NOW RAPID MOLECULAR) Routine 08/15/2024 2:42 PM EDT Acute URI POCT INFLUENZA A (ID NOW RAPID MOLECULAR) Routine 08/15/2024 2:42 PM EDT Acute URI POCT RAPID COVID ANTIGEN Routine 08/15/2024 2:42 PM EDT Acute URI POCT GLUCOSE Routine 08/13/2024 9:10 AM EDT 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) (CMS/HCC) POCT GLYCATED HEMOGLOBIN, TOTAL Routine 07/01/2024 11:00 AM EDT 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) (CMS/HCC) ALBUMIN, RANDOM URINE W/CREATININE Routine 12/14/2023 9:20 AM EDT Type 2 diabetes mellitus without complication, without long-term current use of insulin (CMS/HCC) HEPATITIS C AB W/REFL TO HCV RNA, QN, PCR Routine 04/04/2022 10:44 AM EST Type 2 diabetes mellitus without complication, without long-term current use of insulin (CMS/HCC) from Last 3 Months or Most Recently Relevant to Health Maintenance Results * XR Chest 2 Views (09/19/2024 9:32 AM EDT) Anatomical Region Laterality Modality Chest Radiographic Lisset ging 09/19/2024 9:32 AM EDT Narrative 09/19/2024 10:32 AM EDT [address] [address] XRay Report Signed Patient: Shelton Davis MR#: [id number] : 1945 Acct:[id number] Age/Sex: 79 / M ADM Date: 09/19/24 Loc: .HHCX Attending Dr: Clayton Chavez MD Ordering Physician: Clayton Chavez MD Date of Service: 09/19/24 Procedure(s): XR chest 2V Accession Number(s): [id number] cc: Clayton Chavez MD EXAMINATION: XR CHEST CLINICAL INFORMATION: restrictive lung disease COMPARISON: 06/15/2024. TECHNIQUE: 2 views of the chest were obtained. FINDINGS: The cardiac, hilar, and mediastinal contours are normal. Aortic mural calcification. The lungs are clear bilaterally. No interstitial abnormalities. There is no pneumothorax or pleural effusion. There is no focal osseous or soft tissue abnormality. Mild degenerative changes throughout the spine and involving both shoulder joints. XR/XR chest 2V IMPRESSION: No active pulmonary disease. Electronically signed by: Peter Briggs MD 09/19/2024 10:29 AM EDT Dictated By: Peter Briggs MD Signed By: <Electronically signed by Peter Briggs MD in OV> 09/19/24 1029 DD/ 0932 TD/TT: 09/19/24 1022 Organic Search Lead: Procedure Note Donotuseinterpreter, Image - 09/19/2024 [facility] [address] [place] [address] XRay Report Signed Patient: Shelton DavisMR#: [id number] : 6Acct:[id number] Age/Sex: 79 / MADM Date: 09/19/24 Loc: HO.HHCX Attending Dr: Clayton Chavez MD Ordering Physician: Clayton Chavez MD Date of Service: 09/19/24 Procedure(s): XR chest 2V Accession Number(s): [id number] cc: Clayton Chavez MD EXAMINATION: XR CHEST CLINICAL INFORMATION: restrictive lung disease COMPARISON: 06/15/2024. TECHNIQUE: 2 views of the chest were obtained. FINDINGS: The cardiac, hilar, and mediastinal contours are normal. Aortic mural calcification. The lungs are clear bilaterally. No interstitial abnormalities. There is no pneumothorax or pleural effusion. There is no focal osseous or soft tissue abnormality. Mild degenerative changes throughout the spine and involving both shoulder joints. XR/XR chest 2V IMPRESSION: No active pulmonary disease. Electronically signed by: Peter Briggs MD 09/19/2024 10:29 AM EDT Dictated By: Peter Briggs MD Signed By: <Electronically signed by Peter Briggs MD in OV> 09/19/24 1029 DD/ 0932 TD/TT: 09/19/24 1022 Organic Search Lead: Clayton Millard MD IMG XR PROCEDURES Fin al Result * POCT Glucose (09/19/2024 9:24 AM EDT) Only the most recent of2 resultswithin the time period is included. Glucose Blood, POC 169 60 - 200 mg/dL QC Media Lot # [id number] Lot# Expiration Date Blood Capillary blood specimen / Unknown 09/19/2024 9:24 AM EDT Clayton Millard MD POINT OF CARE TEST EN TER/EDIT ORDERABLES Final Result * (ABNORMAL) Lipid Panel, Standard (09/09/2024 9:27 AM EDT) Triglycerides 186(H) <150 mg/dL [facility] Comment:Desirable Triglyceri de: less than 150 mg/dLBorderline High Triglyceride 150-199 mg/dLHigh Triglyceride: 200-499 mg/dLVery High Triglyceride: greater than or equal to 5OO mg/dL Cholesterol 187 <200 mg/dL [facility] Comment:Desirable Cholestero l: less than 200 mg/dLBorderline High Cholesterol: 200-239 mg/dLHigh Cholesterol: greater than 239 mg/dL LDL Cholesterol Calculated 118(H) <100 mg/dL [facility] Comment:Desirable LDL: less than 100 mg/dLNear Optimal/Above Optimal LDL: 110- 129 mg/dLBorderline High LDL: 130-159 mg/dLHigh LDL: 160-189 mg/dLVery High LDL: greater than or equal to 190 mg/dL HDL Cholesterol 32(L) >40 mg/dL [facility] Comment:Desirable HDL: great er than 40 mg/dL Note: This HDL assay may give artificially low results in patients with liver disease. Blood Venous blood specimen / Unknown 09/09/2024 9:27 AM EDT 09/09/2024 11:20 AM EDT Clayton Millard MD LAB BLOOD ORDERABLES Final Result [facility] [address] [place] [phone] * POCT Rapid Influenza B WARREN ID NOW (08/15/2024 2:42 PM EDT) Influenza B Negative Negative, Indeterminate [facility] Swab 08/15/2024 2:42 PM EDT Jennie Zhu DO POINT OF CARE TEST ENTER/EULOGIO T ORDERABLES Final Result [facility] [address] [place] [address] [phone] * POCT Rapid Influenza A WARREN ID NOW (08/15/2024 2:42 PM EDT) [facility] Influenza A Negative Negative, Indeterminate [facility] Swab 08/15/2024 2:42 PM EDT Jennie Granthouston DO POINT OF CARE TEST ENTER/EULOGIO T ORDERABLES Final Result Performing Organization Address [facility] Co de Phone Number [facility] [address] [place] [address] [phone] * POCT Rapid Strep A WARREN ID NOW (08/15/2024 2:42 PM EDT) [facility] Rapid Strep A Screen Negative Negative, None Detected Swab 08/15/2024 2:42 PM EDT Jennie Zhu DO POINT OF CARE TEST ENTER/EULOGIO T ORDERABLES Final Result * POCT Rapid Covid-19 BinaxNOW (08/15/2024 2:42 PM EDT) [facility] Rapid COVID Ag Negative Swab 08/15/2024 2:42 PM EDT Jennie Audra DO POINT OF CARE TEST ENTER/EULOGIO T ORDERABLES Final Result * (ABNORMAL) POCT HGB A1C (07/01/2024 11:00 AM EDT) [facility] Hemoglobin A1C 6.2(A) 4.0 - 6.0 % QC Media Lot # [id number] Lot# Expiration Date Blood 07/01/2024 11:0 0 AM EDT [facility] POINT OF CARE TEST ENTER/EDIT OR DERABLES Final Result * Albumin, Random Urine W/Creatinine (12/14/2023 9:20 AM EDT) Creatinine, Urine 167.95 mg/dL [facility] Microalbumin Urine 8.0 mg/L [facility] Microalbum Creatinine Ratio Ur 4.7 <30 ug/mg cr [facility] Comment:Albumin/Creatinine R atio Reference Ranges: Normal: < 30 ug/mg creatinine Microalbuminuria: 30 - 300 ug/mg creatinineClinical Albuminuria: > 300 ug/mg creatinine Urine (Urine, Random) 12/14/2023 9:20 AM EDT 12/14/2023 11:13 AM EDT Result [facility] Clayton Millard MD LAB URINE ORDERABLES Final Result [facility] [address] [place] [phone] * Hepatitis C Antibody with Reflex to HCV, RNA, Quantitative, Real-Time PCR (04/04/2022 10:44 AM EST) Hepatitis C Antibody NON-REACT FRANCHESCA NON-REACT FRANCHESCA [facility] [place] [employer] Index <0.02 <1.00 [facility] [facility] [employer] Comment: HCV antibody was non-reactive. There is no laboratory evidence of HCV infection. In most cases, no further action is required. However, if recent HCV exposure is suspected, a test for HCV RNA (test code 60559) is suggested. For additional information please refer to http://education.Double R Group/faq/TFH37l1 (This link is being provided for informational/ educational purposes only.) Blood Venous blood specimen / Unknown 04/04/2022 10:44 AM EST 04/04/2022 10:44 AM EST Narrative [facility] - 04/05/2022 6:45 PM EST FASTING:YES FASTING: YES Clayton Millard MD LAB BLOOD ORDERABLES Final Result [facility] [address] [facility], [address], [place] [address] [facility] [address] [facility], ([address]) [place] [address] from Last 3 Months or Most Recently Relevant to Health Maintenance Insurance [facility] C[facility] OPTIONS (HMO D-SNP) [place] [id number] Care Teams Senior Wind Energy Consultant Relationship Specialty Start Date End Date Clayton Lyon MD [address] [place] [address] PCP - General Internal Medicine 11/12/13 Chris Leal MD [address] [place] [address] Cardiology 07/10/24 [facility] 5/25/22
[2024-10-18 11:59] LABS: MANUAL DIFF FLAG NO
[2024-10-18 12:13] LABS: Hematocrit 50.6 % (42.0-52.0); Hemoglobin 16.7 g/dl (14.0-18.0); Imm Gran Abs Auto 0.03 X10*3/uL (0.00-0.03); Imm Gran Pct Auto 0.4 % (0.0-0.4); Lymphocytes Absolute Auto 3.1 X10*3/uL (1.2-4.9); Mean Corpuscular HGB Conc 33.0 g/dl (31.0-36.0); Mean Corpuscular Hemoglobin 31.3 pg (27.0-33.0); Mean Corpuscular Volume 94.8 fL (80.0-98.0); NRBC Abs Auto 0.000 X10*3/uL (0.0-0.012); NRBC Pct Auto 0.0 /100WBC (0.0-0.2); Platelet Count 226 X10*3/uL (160-400); Red Blood Count 5.34 X10*6/uL (4.60-5.80); White Blood Count 7.5 X10*3/uL (4.8-10.8)
[2024-10-18 12:42] LABS: Anion Gap 13 (12-20); Blood Urea Nitrogen 12 mg/dL (9-16); Calcium 9.6 mg/dL (8.4-10.2); Carbon Dioxide 27 mmol/L (22-29); Chloride 106 mmol/L (96-108); Estimated Glomerular Filt Rate > 60; Potassium 4.8 mmol/L (3.3-5.1); Sodium 141 mmol/L (135-145)
== END 2024-10-18 11:47 | disposition home or self-care (01) ==
LOC: HO.LAB 11:46
PROVIDERS: PCP Internal Medicine; Visit Provider Student in an Organized Health Care Education/Training Program
DX: Z01.818 Encounter for other preprocedural examination (principal); I42.9 Cardiomyopathy, unspecified
CPT/HCPCS: 36415; 80048; 85025; 85610

== ENCOUNTER 2024-10-19 09:44 | Outpatient (REF) | payer OTHER, SELFPAY ==
[2024-10-19 10:34] LABS: INTERNATIONAL NORM RATIO 1.1 (0.9-1.1); Prothrombin Time 13.0 SEC (10.9-12.4)
== END 2024-10-19 09:45 | disposition home or self-care (01) ==
LOC: HO.LAB 09:44
PROVIDERS: PCP Internal Medicine; Visit Provider Student in an Organized Health Care Education/Training Program
DX: Z01.818 Encounter for other preprocedural examination (principal); I42.9 Cardiomyopathy, unspecified
CPT/HCPCS: 36415; 85610

== ENCOUNTER 2024-11-05 09:06 | Outpatient (REF) | payer OTHER, SELFPAY ==
--- OUTSIDE RECORDS SUMMARY | 2023-09-22 05:20 | XMS_ITS ---
Author Organization [facility] Address [address] [place] [phone] Care Team Providers Care Hydrochloric Acid Operator Name Role Phone Dawson Millard MD, Clayton Primary Care Provide r Glenn Thompson Jr Unavailable [phone] REASON FOR VISIT gerd Problems Problem Type SNOMED Code ICD Code Onset Dates Problem Status W/U Status Risk Notes Problem Gastro-esophagea l reflux disease without esophagitis (823004064) Gastro-esophage al reflux disease without esophagitis (K21.9) Active confirmed Encounters Encounter Location Date Provider Diagnosis [facility] [place] [address] [place] [phone] 09/22/2023 Glenn Monroy Jr Gastro-esophageal reflux disease without esophagitis K21.9 Assessments Encounter Date Diagnosis (ICD Code) Assessment Notes Treatment Notes Treatment Clinical Notes Section Notes 09/22/2023 Gastro-esophagea l reflux disease without esophagitis (ICD-10 - K21.9) Plan Of Treatment No Information Progress Notes * ROBB PADRONDOB:1945 ( 79 yo M)Acc No.[id number]:09/22/2023 EGD/MAC Patient: ROBB GONZALEZ Provider: Rich Monroy MD :1945 A ge:78 Y S ex:Male Date:09/22/2023 Address:[address], [id number] Pcp:Clayton valdovinos MD Subjective: * Chief Complaints: [...] 09/22/2023 Generated for Santosh dillard/Codie/Manishaitting on: 0 11/05/2024 09:38 AM EDT
--- OUTSIDE RECORDS SUMMARY | 2024-11-05 09:38 | XMS_ITS | Clinical Summary ---
Author Organization [employer] [facility] ity Address [address] [place] [address] Care Team Providers Care Director Of Veterans Affairs Name Role Phone Clayton Chavez MD Primary [...] age to complete this topic Care Teams Director Of Veterans Affairs Relationship Specialty Start Date End Date Clayton Chavez MD [address] [place] [address] [facility] [place] [phone] PCP - General Internal Medicine 06/26/14
--- OUTSIDE RECORDS SUMMARY | 2024-11-05 09:38 | XMS_ITS | Clinical Summary ---
Author Organization [employer] Address [address] [place] [address] [address] [place] [address] Care Team Providers Care Printing Plate Clerk Name Role Phone Clayton Lyon MD Primary Care Provide r Chris Leal MD Unavailable [phone] Allergies Active Allergy Reactions Criticality Noted Date Comments Alprazolam 03/28/2022 Dicyclomine 12/19/2017 Gabapentin 03/28/2022 Lisinopril 05/17/2016 Oxycodone 03/28/2022 Medications timolol (Timoptic) 0.5 % ophthalmic solution PLACE 1 DROP IN THE RIGHT EYE EVERY MORNING 2 Active pantoprazole (ProtoNix) 40 MG EC tablet Take 40 mg by mouth 2 times daily. 2 Active Blood Glucose Monitoring Suppl (eTukTukStyle Hampton Lite) w/Device kit USE FOR TEST BLOOD SUGAR EVERY DAY 2 Active atorvastatin (Lipitor) 80 MG tablet Take 80 mg by mouth in the morning. 2 Active Ventolin HFA 108 (90 Base) MCG/ACT inhalerIndicati ons:Restrictive lung disease INHALE 2 PUFFS BY MOUTH EVERY 4 HOURS NEEDED FOR WHEEZING OR SHORTNESS OF BREATH 18 g 1 5 Active Eliquis 5 MG tablet Take 1 tablet by mouth 2 times daily. 5 Active digoxin (Lanoxin) 125 MCG tablet Take 1 tablet by mouth Once per day. 5 Active Vericiguat 2.5 MG tablet Take 2.5 mg by mouth Once per day. 5 Active empagliflozin (Jardiance) 10 MG Take 10 mg by mouth Once per day. Active metoprolol tartrate (Lopressor) 50 MG tablet Take 50 mg by mouth 1 (one) time each day. Active fluticasone (Flonase) 50 MCG/ACT nasal spray Administer 2 sprays into each nostril Once per day. Shake gently. Before first use, prime pump. After use, clean tip and replace cap. 16 g 3 5 08/16/19 26 Active Multiple Vitamin (Multivitamin) tabletIndicatio ns:Fatigue due to excessive exertion, sequela TAKE 1 TABLET BY MOUTH EVERY MORNING 90 tablet 5 Active triamcinolone (Kenalog) 0.1 % creamIndication s:Pityriasis rosea Apply topically if needed in the morning and at bedtime (pain and swelling). 30 g 2 5 Active albuterol (2.5 MG/3ML) 0.083% nebulizer solutionIndicat ions:Bronchitis INJECT 1 AMPULE USING A NEBULIZER EVERY 6 HOURS NEEDED FOR WHEEZING 90 mL 1 5 Active Entresto 24-26 MG tablet Take 1 tablet by mouth 2 times daily. Active Ascorbic Acid (vitamin C) 1000 MG tablet Take 1 tablet by mouth Once per day. Active cholecalciferol (Vitamin D3) 25 MCG (1000 UT) tablet Take 1 tablet by mouth Once per day. Active TRUEplus Lancets 33G misc TEST BLOOD SUGAR TWICE A DAY 100 each Active FREESTYLE LITE test strip USE TO TEST BLOOD SUGAR TWICE DAILY DIRECTED 100 each 5 Active cetirizine (ZyrTEC) 10 MG tabletIndicatio ns:Seasonal allergies Take 0.5 tablets (5 mg) by mouth Once per day. 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 EKG and Trop negative on [...] A.Fib with RVR. Under the care of Director Loss Prevention Dr. Leal who has recommended Cardioversion, done 08/18/2024, unfortunately went back to Afib. Seen by Cardiology 09/09/2024 who now recommended ablation to be scheduled at [facility] Assessment & Plan (08/13/2024 9:10 AM EDT): Pt recently hospitalized and diagnosed with A.Fib with RVR. Under the care of Director Loss Prevention Dr. Leal who has recommended Cardioversion Diverticulosis [...] with abx Last colonoscopy 11/20/[address] Porfirio showed mild diverticulosis on the sigmoid Tympanic [...] (11/01/2022 10:24 AM EDT): Pt seen by P[facility] Dr Garcia He reviewed his laboratory results That included: CRP, RF, ESR and DAVIE were all Normal His assessment was that patient had fibromyalgia Right hand pain 11/01/2022 Assessment & Plan (02/14/2023 10:24 AM EST): Patient with painful right index finger, difficulty bending it. Seen at [facility] received steroid injections with good results 11/24/2022 Assessment & Plan (11/01/2022 10:25 AM EDT): Patient with painful right index finger, difficulty bending it. Seen in the past at [facility] received steroid injections with good results Pt would like to go back Grade II hemorrhoids 11/01/2022 Assessment & Plan (02/14/2023 10:24 AM EST): Evaluated by Dr Carney 10/2022 opted for conservative measures Assessment & Plan (11/01/2022 10:32 AM EDT): Patient with c/o BRBPR Exam indicative of hemorrhoids Plan: Increase fluid, fiber in diet Proctosl H Referral to Dr Carney [facility] care 08/02/2022 Assessment & Plan [...] EST): Pt seen in the ER at [facility] yesterday with cough, diagnosed with bronchitis. Treated with Prednisone, Benzonatate and a z-pack, Chest x-ray was negative Arthralgia 05/12/2022 Assessment & Plan (05/30/2022 12:49 PM EST): Televisit Pt seen by Dr. Enrique at our [facility] with c/o arthralgias, worse the last 2 [...] shoulder pain. Seen in the past at [facility], last seen 02/27/2019 received a steroid [...] Clinical correlation recommended. Pt was seen by [employer] 08/2018 who thought this was due [...] Clinical correlation recommended. Pt was seen by [employer] 08/2018 who thought this was due [...] of his LS spine done showed: 1. Gjji-xr-ykavznsg loss of disc height at L4-L5 with a right paracentral disc extrusion resulting in mass effect upon the right L5 nerve root. Mild central canal stenosis. Broad-based left lateral disc protrusion and endplate spurring abutting the exiting left L4 nerve root. Fxxw-qy-dugkduhh bilateral foraminal narrowing. 2. 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) (CMS/HCC) (Primary Dx); Atrial fibrillation, unspecified type (CMS/HCC); Celiac artery compression syndrome (CMS/HCC); Essential hypertension; Chronic systolic heart failure (CMS/HCC) 09/21/2024 Results Follow-Up [facility] [address] [place] [address] Clayton Lyon MD XR Chest 2 Views 09/19/2024 9:15 AM EDT Office Visit [facility] [address] [place] [address] Clayton Lyon MD Essential hypertension (Primary Dx); 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) (CMS/HCC); Paroxysmal atrial fibrillation (CMS/HCC); Restrictive lung disease; Seasonal allergies; Hypercholesterolemia 09/19/2024 Travel 09/18/2024 Telephone [facility] [address] [place] [address] Danielle West [place] Chart Prep 09/18/2024 Refill [facility] [address] [place] [address] Clayton Lyon MD 09/18/2024 Telephone [facility] [address] [place] [address] Clayton Lyon MD telephone call 09/18/2024 Refill [facility] [address] [place] [address] Clayton Lyon MD 09/17/2024 Refill [facility] [address] [place] [address] Clayton Lyon MD 09/06/2024 11:15 AM EDT Office Visit [facility] [address] [place] [phone] Carter Edouard MD Dermatitis (Primary Dx); Pityriasis rosea 09/06/2024 Refill [facility] [address] [place] [address] Clayton Lyon MD Bronchitis 09/06/2024 Travel 09/05/2024 Refill [facility] [address] [place] [address] Kirk Whitten MD Fatigue due to excessive exertion, sequela 09/05/2024 Telephone [facility] [address] [place] [address] Clayton Lyon MD Call Back Request 08/23/2024 Telephone [facility] [address] [place] [address] Clayton Lyon MD Nurse Triage 08/15/2024 2:00 PM EDT Office Visit [facility] [address] [facility] [place] [address] Jennie Zhu DO Acute URI (Primary Dx) 08/15/2024 Travel 08/13/2024 9:15 AM EDT Office Visit [facility] [address] [place] [address] Clayton Lyon MD Paroxysmal atrial fibrillation (CMS/HCC) (Primary Dx); 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) (CMS/HCC); Essential hypertension; Celiac artery compression syndrome (CMS/HCC); Chronic systolic heart failure (CMS/HCC); Hypercholesterolemia 08/13/2024 Travel 08/12/2024 Telephone [facility] [address] [facility] [place] [address] Clayton Lyon MD Chart Prep 08/06/2024 Telephone [facility] [address] [facility] [place] [address] Clayton Lyon MD from Last 3 Months Immunizations Immunization Administration [...] Description 12/17/2024 10:00 AM EDT Office Visit [facility] [address] [place] [address] Clayton Lyon MD [address] [place] [address] 10/10/2025 9:30 AM EDT Medication Management [facility] [address] [place] [address] Ban Toribio, PharmD [address] [place] [address] Health Maintenance Due Date Last Done Comments [...] Procedure Name Priority Date/Time Associated Diagnosis Comments PROTHROMBIN TIME-INR Routine 10/19/2024 9:56 AM EDT XR CHEST 2 VIEWS Routine 09/19/2024 9:32 [...] Relevant to Health Maintenance Results * (ABNORMAL) Prothrombin Time-INR (10/19/2024 9:56 AM EDT) Prothrombin Time 13.0(H) 10.9 - 12.4 SEC [facility] INTERNATIONAL NORM RATIO 1.1 0.9 - 1.1 [facility] Comment:INTERNATIONAL NORMAL IZED RATIO (INR) REFERENCE RANGES Reference RangeFor patients not on anticoagulant therapy: 0.9 - 1.1INR ranges for oral anticoagulanttherapy:For prevention and treatment of venous thrombosis and pulmonary embolism: 2.0 - 3.0For acute myocardial infarction with aspirin therapy: 2.0 - 3.0For acute myocardial infarction without aspirin therapy: 3.0 - 4.0For patients with mechanical prosthetic heart valves: 2.5 - 3.5 10/19/2024 9:56 AM EDT 10/19/2024 9:56 AM EDT us Generic External Data Provider LAB BLOOD ORDERAB LES Final Result Performing Organization Address City/State/[facility] Co de Phone Number [facility] [address] [place] [phone] * XR Chest 2 Views (09/19/2024 9:32 AM EDT) Anatomical Region Laterality Modality Chest Radiographic Lisset ging 09/19/2024 9:32 AM EDT Narrative 09/19/2024 10:32 AM EDT [address] [address] XRay Report Signed Patient: Shelton Davis MR#: [id number] : 1945 Acct:[id number] Age/Sex: 79 / M ADM Date: 09/19/24 Loc: HO.HHCX Attending Dr: Clayton Chavez MD Ordering Physician: Clayton Chavez MD Date of Service: 09/19/24 Procedure(s): XR chest 2V Accession Number(s): [id number] cc: Clayton Chavez MD EXAMINATION: XR CHEST [...] Peter Briggs MD 09/19/2024 10:29 AM EDT RP Dictated By: Peter Briggs MD Signed By: <Electronically signed by Peter Briggs MD in OV> 09/19/24 1029 DD/ 0932 TD/TT: 09/19/24 1022 Commercial Artist: Procedure Note Donotuseinterpreter, Image - 09/19/[address] [address] XRay Report Signed Patient: Mariah Davis#: [id number] : 1945cct:[id number] Age/Sex: 79 / MADM Date: 09/19/24 Loc: .HHX Attending Dr: Clayton Chavez MD Ordering Physician: Clayton Chavez MD Date of Service: 09/19/24 Procedure(s): XR chest 2V Accession Number(s): [id number] cc: Clayton Chavez MD EXAMINATION: XR CHEST [...] Peter Briggs MD 09/19/2024 10:29 AM EDT RP Dictated By: Peter Briggs MD Signed By: <Electronically signed by Peter Briggs MD in OV> 09/19/24 1029 DD/ 0932 TD/TT: 09/19/24 1022 Commercial Artist: us Clayton Millard MD IMG XR PROCEDURES Fin al Result * POCT Glucose (09/19/2024 9:24 AM EDT) Only the most recent of2 resultswithin the time period is included. Glucose Blood, POC 169 60 - 200 mg/dL QC Media Lot # [id number] Lot# Expiration Date ,823 Blood Capillary blood specimen / Unknown 09/19/2024 9:24 AM EDT Clayton Millard MD POINT OF CARE TEST EN TER/EDIT ORDERABLES Final Result * (ABNORMAL) Lipid Panel, Standard (09/09/2024 9:27 AM EDT) Triglycerides 186(H) <150 mg/dL [facility] Comment:Desirable Triglyceri de: less than 150 mg/dLBorderline High Triglyceride 150-199 mg/dLHigh Triglyceride: 200-499 mg/dLVery High Triglyceride: greater than or equal to 5OO mg/dL Cholesterol 187 <200 mg/dL [facility] Comment:Desirable Cholestero l: less than 200 mg/dLBorderline High Cholesterol: 200-239 mg/dLHigh Cholesterol: greater than 239 mg/dL LDL Cholesterol Calculated 118(H) <100 mg/dL [facility] Comment:Desirable LDL: less than 100 mg/dLNear Optimal/Above Optimal LDL: 110- 129 mg/dLBorderline High LDL: 130-159 mg/dLHigh LDL: 160-189 mg/dLVery High LDL: greater than or equal to 190 mg/dL HDL Cholesterol 32(L) >40 mg/dL [facility] Comment:Desirable HDL: great er than 40 mg/dL Note: This HDL assay may give artificially low results in patients with liver disease. Blood Venous blood specimen / Unknown 09/09/2024 9:27 AM EDT 09/09/2024 11:20 AM EDT Clayton Millard MD LAB BLOOD ORDERABLES Final Result [facility] [address] [place] [phone] * POCT Rapid Influenza B WARREN ID NOW (08/15/2024 2:42 PM EDT) [facility] Influenza B Negative Negative, Indeterminate [facility] Swab 08/15/2024 2:42 PM EDT Jennie Zhu DO POINT OF CARE TEST ENTER/EULOGIO T ORDERABLES Final Result [facility] [address] [place] [phone] * POCT Rapid Influenza A WARREN ID NOW (08/15/2024 2:42 PM EDT) [facility] Influenza A Negative Negative, Indeterminate [facility] Swab 08/15/2024 2:42 PM EDT Jennie Zhu DO POINT OF CARE TEST ENTER/EULOGIO T ORDERABLES Final Result Performing Organization Address City/[facility]/ZIP Co de Phone Number [facility] [address] [place] [phone] * POCT Rapid Strep A WARREN ID NOW (08/15/2024 2:42 PM EDT) [facility] Rapid Strep A Screen Negative Negative, None Detected Swab 08/15/2024 2:42 PM EDT Jennie Zhu DO POINT OF CARE TEST ENTER/EULOGIO T ORDERABLES Final Result * POCT Rapid Covid-19 BinaxNOW (08/15/2024 2:42 PM EDT) [facility] Rapid COVID Ag Negative Swab 08/15/2024 2:42 PM EDT Jennie Jurcsak DO POINT OF CARE TEST ENTER/EULOGIO T ORDERABLES Final Result * (ABNORMAL) POCT HGB A1C (07/01/2024 11:00 AM EDT) Hemoglobin A1C 6.2(A) 4.0 - 6.0 % QC Media Lot # [id number] Lot# Expiration Date Blood 07/01/2024 11:0 0 AM EDT Audrey Kusum FRY POINT OF CARE TEST ENTER/EDIT OR DERABLES Final Result * Albumin, Random Urine W/Creatinine (12/14/2023 9:20 AM EDT) Creatinine, Urine 167.95 mg/dL [facility] Microalbumin Urine 8.0 mg/L [facility] Microalbum Creatinine Ratio Ur 4.7 <30 ug/mg cr [facility] Comment:Albumin/Creatinine R atio Reference Ranges: Normal: < 30 ug/mg creatinine Microalbuminuria: 30 - 300 ug/mg creatinineClinical Albuminuria: > 300 ug/mg creatinine Urine (Urine, Random) 12/14/2023 9:20 AM EDT 12/14/2023 11:13 AM EDT Clayton Millard MD LAB URINE ORDERABLES Final Result [facility] [address] [place] [phone] * Hepatitis C Antibody with Reflex to HCV, RNA, Quantitative, Real-Time PCR (04/04/2022 10:44 AM EST) Hepatitis C Antibody NON-REACT FRANCHESCA NON-REACT FRANCHESCA [facility] [place] [employer] Index <0.02 <1.00 [facility] [place] [facility] Comment: HCV antibody was non-reactive. There is no laboratory evidence of HCV infection. In most cases, no further action is required. However, if recent HCV exposure is suspected, a test for HCV RNA (test code 58474) is suggested. For additional information please refer to http://education.Andre Phillipe.Superplayer/faq/TBK82c9 (This link is being provided for informational/ educational purposes only.) Blood Venous blood specimen / Unknown 04/04/2022 10:44 AM EST 04/04/2022 10:44 AM EST Narrative [facility] - 04/05/2022 6:45 PM EST FASTING:YES FASTING: YES Clayton Millard MD LAB BLOOD ORDERABLES Final Result [facility] [address] [facility], [place] [address] [employer] [facility] [address] [facility], ([address]) [place] [address] from Last 3 Months or Most Recently Relevant to Health Maintenance Insurance [facility]F-W[facility] OPTIONS (O D-SNP) [place] [id number] Care Teams Printing Plate Clerk Relationship Specialty Start Date End Date Clayton Lyon MD [address] [place] [address] PCP - General Internal Medicine 11/12/13 Chris Leal MD [address] [place] [address] Cardiology 07/10/24 [facility] 08/18/21
[2024-11-05 11:22] LABS: B Type Natriuretic Peptide 381 pg/mL (<100)
[2024-11-05 11:54] LABS: Anion Gap 12 (12-20); Blood Urea Nitrogen 10 mg/dL (9-16); Calcium 8.7 mg/dL (8.4-10.2); Carbon Dioxide 26 mmol/L (22-29); Chloride 106 mmol/L (96-108); Estimated Glomerular Filt Rate > 60; Potassium 3.8 mmol/L (3.3-5.1); Sodium 140 mmol/L (135-145)
== END 2024-11-05 09:07 | disposition home or self-care (01) ==
LOC: HO.HHCL 09:06
PROVIDERS: PCP Internal Medicine; Visit Provider Internal Medicine Cardiovascular Disease
DX: I50.20 Unspecified systolic (congestive) heart failure (principal)
CPT/HCPCS: 36415; 80048; 83880

== ENCOUNTER 2024-12-23 08:58 | Emergency (ER) | payer OTHER, SELFPAY ==
--- OUTSIDE RECORDS SUMMARY | 2023-09-13 05:00 | XMS_ITS ---
Author Organization [facility] Address [address] [place] [address] Care Team Providers Care Applications Engineer Name Role Phone Dawson Millard MD, Clayton Primary Care Provide Glenn Mary Jr Unavailable [phone] Encounters Encounter Location Date Provider Diagnosis [facility] [address] [place] [address] 09/13/2023 Glenn Monroy Jr Plan Of Treatment No Information Progress Notes * ROBB PADRONDOB:1945 ( 79 yo M)Acc No.[id number]:09/13/2023 Progress Notes Patient: ROBB GONZALEZ Provider: Rich Monroy MD :1945 A ge:78 Y S ex:Male Date:09/13/2023 Address:[address], [place] [id number] Pcp:Clayton valdovinos MD Subjective: * Chief Complaints: * * Medical History: Objective: * Vitals: Assessment: Plan: * Treatment: * * The named appointment provid er may or may not be the originator of this progress note, and it is not deemed complete until electronically signed by the appointment provider. Sign off status: Pending * Provider: Rich Monroy MD Date: 09/13/2023 Generated for Santosh dilladr/Codie/eTransmitting on: 12/23/2024 10:26 AM EDT
--- OUTSIDE RECORDS SUMMARY | 2023-09-22 05:20 | XMS_ITS ---
Author Organization [facility] Address [address] [place] [phone] Care Team Providers Care Jazz Singer Name Role Phone Dawson Millard MD, Clayton Primary Care Provide r Glenn Thompson Jr Unavailable REASON FOR VISIT gerd Problems Problem Type SNOMED Code ICD Code Onset Dates Problem Status W/U Status Risk Notes Problem Gastro-esophagea l reflux disease without esophagitis (355368486) Gastro-esophage al reflux disease without esophagitis (K21.9) Active confirmed Encounters Encounter Location Date Provider [place] [facility] [place] [address] [place] [id number] 09/22/2023 Glenn Monroy Jr Gastro-esophageal reflux disease without esophagitis K21.9 Assessments Encounter Date Diagnosis (ICD Code) Assessment Notes Treatment Notes Treatment Clinical Notes Section Notes 09/22/2023 Gastro-esophagea l reflux disease without esophagitis (ICD-10 - K21.9) Plan Of Treatment No Information Progress Notes * ROBB PADRONDOB:1945 ( 79 yo M)Acc No.[id number]:09/22/2023 EGD/MAC Patient: ROBB GONZALEZ Provider: Rich Monroy MD :1945 A ge:78 Y S ex:Male Date:09/22/2023 Address:[address], [id number] Pcp:Clayton valdovinos MD Subjective: * Chief Complaints: [...] 09/22/2023 Generated for Santosh dillard/Codie/Manishaitting on: 0 12/23/2024 10:25 AM EDT
--- OUTSIDE RECORDS SUMMARY | 2024-09-03 04:20 | XMS_ITS ---
Author Organization [facility] Address [address] [place] [address] Care Team Providers Care Daytime Babysitter Name Role Phone Dawson Millard MD, Clayton Primary Care Provide r Glenn Thompson Jr Unavailable REASON FOR VISIT diverticulitis Encounters Encounter Location Date Provider Diagnosis [facility] [place] [address] [place] [phone] 09/03/2024 Glenn Monroy Jr Plan Of Treatment No Information Progress Notes * PADRONROBBDOB:1945 ( 79 yo M)Acc No.[id number]:09/03/2024 COLON WITH MAC Patient: ROBB GONZALEZ Provider: Rich Monroy MD :1945 A ge:79 Y S ex:Male Date:09/03/2024 Address:[address], [place] [facility] Pcp:Clayton valdovinos MD Subjective: * Chief Complaints: * 1 . Diverticulitis. * Medical History: Objective: * Vitals: Assessment: Plan: * Treatment: * * The named appointment provid er may or may not be the originator of this progress note, and it is not deemed complete until electronically signed by the appointment provider. Sign off status: Pending * Provider: Rich Monroy MD Date: 09/03/2024 Generated for Santosh dillard/Codie/eTransmitting on: 0 12/23/2024 10:25 AM EDT
--- NOTE | 2024-12-23 09:08 | ED_ITS ---
HPI - Abdominal Pain General Chief Complaint: General Medical Stated Complaint: stomach pain Time Seen by Provider: 12/23/24 09:07 Source: patient, RN notes reviewed, old records reviewed and women's ministry director Mode of arrival: ambulatory Limitations: no limitations History of Present Illness ED Provider: Amber Castillo PA-C HPI narrative: 79-year-old male with history of CVA, diverticulitis, pneumonia, AFib, HFrEF, orthostatic hypotension, cardiomyopathy, BPH, fibromyalgia, celiac artery compression syndrome, hemorrhoids who presents to the ER for evaluation of insomnia. He states has had chronic epigastric abdominal pain due to gastritis for which he is on pantoprazole two times per day. when he takes some of his PM meds it seems to upset his stomach and make the pain worse. He states his pain is overall unchanged, overall improved with dietary changes. He initially stated he is here with abdominal pain however he endorses being here for insomnia. He reports not being able to sleep well for the last 2 weeks. He states he goes to bed at 11:00 at night, and is up several times during the night, often peeing 5 times. He states when he gets back in the bathroom he can not fall back asleep. He tried melatonin 1 time with no improvement. He states the lack of sleep is giving him a posterior headache, aching, nonradiating. No neck pain. No chest pain, shortness of breath, nausea, vomiting, diarrhea. He denies any hematuria, dysuria. He states he is eating and drinking normally. No medication changes. He is hoping to get medication for insomnia MD elicited complaint: abdominal pain Onset (ago): week(s) Pain Consistency: intermittent Location: epigastric Quality: aching Radiation: none Exacerbating factors: nothing Relieving factors: medication Associated symptoms: denies other symptoms Related Data Home Medications ?Medication ?Instructions ?Recorded ?Confirmed albuterol sulfate 2.5 mg/3 mL 2.5 mg inhalation QID AL N Wheezing 06/11/20 07/11/24 (0.083 %) solution for nebulization atorvastatin 80 mg tablet 80 mg PO DAILY 06/11/2006/25 multivitamin 1 tab PO DAILY 06/11/2006/25 albuterol sulfate 90 mcg/actuation 2 puff inhalation Q 6H PRN Wheezing 11/13/20 07/11/24 aerosol inhaler (Ventolin HFA) blood sugar diagnostic (FreeStyle #10 ea 06/15/21 09/2 09/16 Lite Strips) lancets 33 gauge (TRUEplus Lancets) #100 ea 06/15/21 0 12/20/22 pantoprazole 40 mg tablet,delayed 40 mg PO DAILY@0630 06/15/24 07/11/24 release sumatriptan succinate 50 mg tablet 50 mg PO Q2H PRN Mi graine Headache 06/15/24 07/11/24 empagliflozin 10 mg tablet 10 mg PO DAILY 07/11/24 (Jardiance) metoprolol tartrate 25 mg tablet 25 mg PO BEDTIME 06/2507/11/24 metoprolol tartrate 50 mg tablet 50 mg PO DAILY@0800 0 07/11/24 07/11/24 vericiguat 2.5 mg tablet (Verquvo) 2.5 mg PO DAILY 07/11/24 Previous Rx's ?Medication ?Instructions ?Recorded apixaban 5 mg tablet (Eliquis) 5 mg PO BID #180 tabs 0 06/19/24 digoxin 125 mcg (0.125 mg) tablet 0.125 mg PO DAILY #9 0 tabs 06/19/24 amitriptyline 25 mg tablet 25 mg PO BEDTIME #90 tabs 0 11/04/24 melatonin 5 mg tablet 5 mg PO BEDTIME PRN sleep #3 0 tabs 12/23/24 Allergies Allergy/AdvReac Type Severity Reaction Status Date / Time lisinopril (LISINOPRIL) Allergy Intermediate COUGH Verified 12/23/24 09:26 oxycodone (From PERCOCET) Allergy Intermediate VOMITING Verified 12/23/24 09:26 alprazolam (From XANAX) AdvReac Intermediate VOMITING Verified 12/23/24 09:26 gabapentin AdvReac Abdominal Verified 12/23/24 09:26 Pain Review of Systems Review of Systems Yes all other systems are reviewed and are negative [facility] Past Medical History Medical History Weak urinary stream Erectile dysfunction Bleeding hemorrhoids Diabetes mellitus Arteriosclerosis Cancer Pulmonary nodule Non-ischemic cardiomyopathy CVA (cerebral vascular accident) Arthritis Asthma GERD (gastroesophageal reflux disease) Elevated cholesterol Diastolic dysfunction Surgical History Hx of transurethral resection of prostate History of esophagogastroduodenoscopy (EGD) H/O colonoscopy Hx of cataract extraction History of ankle surgery History of surgical removal of skin lesion History of hemorrhoidectomy History of appendectomy Family History Family History Father Prostate cancer Mother Parkinson disease Social History Social History Household Members: Children and Other Household Members Other:: two grandchild Housing: Apartment Do you presently have visiting nurse or other home services: Yes Alcohol intake: former Patient Tobacco Use Status: Former Tobacco user Smoked in Last 30 Days: No Second Hand Smoke Exposure: No Use of substances other than those prescribed or required for medical reasons: No Advance Directives: No Advance Directives Information Provided: No service: No Physical Exam ED Exam Exam: Appearance: Alert. Oriented X3. No acute distress. Head: normocephalic, atraumatic. Eyes: Pupils equal, round and reactive to light. ENT: Pharynx normal. moist mucus membranes Neck: Normal inspection. Neck supple. CVS: irregularly irregular, Pulses normal. Respiratory: No respiratory distress. Breath sounds normal. Abdomen: Soft and nontender. +BS x4 Skin: Skin warm and dry. Normal skin color. Normal skin turgor. No rashes. Extremities: No lower extremity edema. No joint swelling. Neuro/psych: Oriented X 3. No motor deficit. No sensory deficit. CN II-XII intact. Normal speech and cognition. steady gait Vital Signs: Vital Signs - 24 hr 12/23/24 09:16 12/23/24 09:43 12/23/24 11:07 Temperature 97.6 F 97.6 F Pulse Rate 57 57 47 L Respiratory Rate 15 15 12 Blood Pressure 105/55 L 105/55 L 100/58 L Pulse Oximetry 100 100 100 Oxygen Delivery Method Room Air Room Air Room Air 12/23/24 12:47 Temperature 98.1 F Pulse Rate 48 L Respiratory Rate 12 Blood Pressure 102/58 L Pulse Oximetry 100 Oxygen Delivery Method Room Air BMI result Body Mass Index 24.3 Medical Decision Making Medical Decision Making MDM Narrative: 79-year-old male with complicated medical history presents to the ER for evaluation of insomnia. He has chronic abdominal pain which she states is well controlled. He does report that sometimes taking his nightly medications can upset his stomach. He denies this affecting his sleep pattern. He reports having a water bottle near his bedside, drinking frequently throughout the night, urinating frequently throughout the night. Vital signs are stable. Physical exam is remarkable. Labs are unremarkable. Given his age and complex medical history, would defer adding an additional medication to his regimen that could put him at higher risk for falls. He lives home alone. We discussed with the credentialing manager the importance of good sleep hygiene, limiting liquid intake in the evening and at night, and a trial of melatonin 5 mg nightly. He will make some changes, try melatonin, follow-up with PCP for further evaluation if insomnia persists. Return precautions were discussed. Comfortable discharge home Differential Diagnosis Differential Diagnoses: The differential diagnosis associated with the presentation includes primary insomnia, UTI, BPH, urinary retention, hyponatremia, metabolic derangement, acute psychosis, depression, anxiety Admission/Observation Consideration of admission/observation: Escalation of care including admission/observation considered Lab Data [facility] Lab Attestation statement: I reviewed the patient's lab results. Lab work is unremarkable, CBC is normal, no major metabolic derangement normal renal function, UA is negative for infection 12/23/24 09:46 12/23/24 09:46 Labs: Lab Results 12/23/24 12/23/24 Range/Units 09:46 10:53 WBC 8.2 (4.8-10.8) X10*3/uL RBC 5.00 (4.60-5.80) X10*6/uL Hgb 16.5 (14.0-18.0) g/dl Hct 48.6 (42.0-52.0) % MCV 97.2 (80.0-98.0) fL MCH 33.0 (27.0-33.0) pg MCHC 34.0 (31.0-36.0) g/dl RDW 13.4 (11.0-16.0) % Plt Count 229 (160-400) X10*3/uL MPV 10.1 (9.4-12.4) fL Immature Gran % (Auto) 0.4 (0.0-0.4) % Neut % (Auto) 57.7 (45-73) % Lymph % (Auto) 34.6 (20-40) % [place] % (Auto) 6.6 (2-11) % Eos % (Auto) 0.5 (0-4) % Baso % (Auto) 0.2 (0-2) % Lymph # (Auto) 2.8 (1.2-4.9) X10*3/uL [place] # (Auto) 0.5 (0.1-1.2) X10*3/uL Eos # (Auto) 0.0 (0.0-0.4) X10*3/uL Baso # (Auto) 0.0 (0.0-0.2) X10*3/uL Abs Immat Gran (auto) 0.03 (0.00-0.03) X10*3/uL Absolute Neuts (auto) 4.7 (2.0-8.3) x10*3/uL Absolute Nucleated RBC 0.000 (0.0-0.012) X10*3/uL Nucleated RBC % (auto) 0.0 (0.0-0.2) /100WBC Sodium 136 (135-145) mmol/L Potassium 4.4 (3.3-5.1) mmol/L Chloride 104 (96-108) mmol/L Carbon Dioxide 25 (22-29) mmol/L Anion Gap 11 L (12-20) BUN 18 H (9-16) mg/dL Creatinine 1.17 (0.5-1.4) mg/dL Estim Creat Clear Calc 48.6 Estimated GFR > 60 Random Glucose 103 (60-115) mg/dL Calcium 9.7 D (8.4-10.2) mg/dL Magnesium 2.3 (1.6-2.6) mg/dL Total Bilirubin 0.5 (0.0-1.0) mg/dL AST 40 H (5-37) U/L ALT 27 (0-40) U/L Alkaline Phosphatase 85 (39-117) U/L Total Protein 7.5 (6.5-8.0) g/dL Albumin 4.5 (3.5-5.0) g/dL Urine Color Yellow Urine Appearance Clear Urine pH 6.5 (5.0-9.0) Ur Specific [place] 1.015 (1.005-1.025) Urine Protein Negative (Neg-Trace) mg/dL Urine Glucose (UA) >=1000 H (Negative) mg/dL Urine Ketones Negative (Negative) mg/dL Urine Blood Negative (Negative) Urine Nitrite Negative (Negative) Ur Leukocyte Esterase Negative (Negative) Urine RBC 0-2 (0-2) /HPF Urine WBC 0-5 (0-5) /HPF Ur Squamous Epith Cells 0-2 (0-2) /HPF Urine Bacteria None Seen (None Seen) Hyaline Casts 0-2 (0-2) /LPF External Record Review External record reviewed: Office record, Outpatient record and Prior outpatient labs Tests considered The following testing was considered but not selected: CT scan of the abdomen was considered however his abdomen was nontender Prescription Management I considered prescription management with: Other (Trazodone or Seroquel were considered however this should come from his primary care doctor after trial of limiting liquids, good sleep hygiene) Chronic Conditions Patient?s care impacted by: Diabetes, Hypertension and Other (AFib) Social Determinants Patient?s care significantly limited by Social Determinants of Health including: Problems related to primary support group Critical Care Time Critical Care Time Critical Care Time: No Discharge Plan Discharge Clinical Impression: Nocturnal polyuria Insomnia Qualifiers: Insomnia type: unspecified Qualified Code(s): G47.00 - Insomnia, unspecified Patient Disposition: Home, Self-Care Instructions: Insomnia (ED) Additional Instructions: Your lab workup today was unremarkable. Your urine test did not show any evidence of infection. Your sleep is being disturbed by urinating multiple times at night. Recommend stopped drinking liquids after 5 or 6pm Recommend following up with your urologist given your history of BPH. Recommend trial of melatonin 5 mg nightly 1-1/2 hour before bed. Avoid TV before bed Follow-up with your primary care doctor for further evaluation, other medications or therapies may be recommended by them. If you develop new or worsening symptoms call 911 or come back to the ER for further evaluation. Prescriptions: New melatonin 5 mg tablet 5 mg PO BEDTIME PRN (Reason: sleep) Qty: 30 0RF No Action amitriptyline 25 mg tablet 25 mg PO BEDTIME Qty: 90 0RF albuterol sulfate [Ventolin HFA] 90 mcg/actuation Hfa Aerosol Inhaler 2 puff INHALATION Q6H PRN (Reason: Wheezing) sumatriptan succinate 50 mg tablet 50 mg PO Q2H MDD 100 MG PRN (Reason: Migraine Headache) Rx Instructions: NO MORE THAN 2 TABS IN 24 HRS pantoprazole 40 mg tablet,delayed release (DR/EC) 40 mg PO DAILY@0630 Eliquis 5 mg Tablet 5 mg PO BID Qty: 180 0RF digoxin 125 mcg (0.125 mg) Tablet 0.125 mg PO DAILY Qty: 90 0RF Protocol: Hold for HR <: HOLD for HR < : 60 metoprolol tartrate 25 mg Tablet 25 mg PO BEDTIME Jardiance 10 mg tablet 10 mg PO DAILY Verquvo 2.5 mg tablet 2.5 mg PO DAILY metoprolol tartrate 50 mg tablet 50 mg PO DAILY@0800 Protocol: Hold for SBP/HR < HOLD for SBP < : 90 HOLD for HR < : 60 albuterol sulfate 2.5 mg /3 mL (0.083 %) solution for nebulization 2.5 mg inhalation QID PRN (Reason: Wheezing) atorvastatin 80 mg tablet 80 mg PO DAILY multivitamin Tablet 1 tab PO DAILY (DME) lancets [TRUEplus Lancets] 33 gauge misc See Rx Instructions topical .MEDSUPPLY Qty: 100 Rx Instructions: As directed (DME) FreeStyle Lite Strips Strip See Rx Instructions Not Applicable BID Qty: 10 Rx Instructions: As directed Referrals: Clayton Chavez MD [Primary Care Provider, Medical] Interventions: ED Discharge Assessment Last Done: 12/23/24 12:47 Discharge Date/Time: 12/23/24 12:49 Print Language: Serbian
[2024-12-23 09:16] VITALS: BP 105/55; PULSE 57; RESP 15; TEMP 36.4; O2SAT 100; BMI 24.3
--- NOTE | 2024-12-23 09:27 | PC.NURSE ---
A&o x4. Pt is tearful because the lack of sleep makes him so sad, denies thoughts of self harm. He is more depressed.
--- NOTE | 2024-12-23 09:30 | PC.NURSE ---
Reports some dizziness this morning, but no falls at home. Denies dizziness now. Taking tylenol at home for headaches
[2024-12-23 09:43] VITALS: BP 105/55; PULSE 57; RESP 15; TEMP 36.4; O2SAT 100
[2024-12-23 09:49] LABS: MANUAL DIFF FLAG NO
[2024-12-23 09:54] LABS: Hematocrit 48.6 % (42.0-52.0); Hemoglobin 16.5 g/dl (14.0-18.0); Imm Gran Abs Auto 0.03 X10*3/uL (0.00-0.03); Imm Gran Pct Auto 0.4 % (0.0-0.4); Lymphocytes Absolute Auto 2.8 X10*3/uL (1.2-4.9); Mean Corpuscular HGB Conc 34.0 g/dl (31.0-36.0); Mean Corpuscular Hemoglobin 33.0 pg (27.0-33.0); Mean Corpuscular Volume 97.2 fL (80.0-98.0); NRBC Abs Auto 0.000 X10*3/uL (0.0-0.012); NRBC Pct Auto 0.0 /100WBC (0.0-0.2); Platelet Count 229 X10*3/uL (160-400); Red Blood Count 5.00 X10*6/uL (4.60-5.80); White Blood Count 8.2 X10*3/uL (4.8-10.8)
--- NOTE | 2024-12-23 09:54 | PC.NURSE ---
pt reports he is unable to urinate. bladder scan performed displaying 51ml. no interventions needed at this time. pt provided w/ glass of water per provider approval in attempts to obtain urine specimen. plan of care ongoing.
[2024-12-23 10:23] LABS: Alanine Aminotransferase 27 U/L (0-40); Albumin Level 4.5 g/dL (3.5-5.0); Alkaline Phosphatase 85 U/L (39-117); Anion Gap 11 (12-20); Aspartate Amino Transferase 40 U/L (5-37); Blood Urea Nitrogen 18 mg/dL (9-16); Calcium 9.7 mg/dL (8.4-10.2); Carbon Dioxide 25 mmol/L (22-29); Chloride 104 mmol/L (96-108); Creatinine Clr Calc Pharmacy 48.6; Estimated Glomerular Filt Rate > 60; Magnesium 2.3 mg/dL (1.6-2.6); Potassium 4.4 mmol/L (3.3-5.1); Sodium 136 mmol/L (135-145); Total Protein 7.5 g/dL (6.5-8.0)
--- OUTSIDE RECORDS SUMMARY | 2024-12-23 10:25 | XMS_ITS | Encounter Summary ---
Author Organization [facility] Address [address] [place] [phone] Phone Care Team Providers Care Management Professor Name Role Phone Clayton Chavez MD Primary Care Provide r Encounter Details Date Type Department Care Team (Late st Contact Info) Description 07/29/2024 Procedure Pass [facility] [address] [place] [address] Social History Tobacco Use Types Packs/Day Years Used Date Smoking Tobacco: Former Cigarettes Smokeless Tobacco: Former Alcohol Use Standard Drinks/Week Comments Not Currently 0 (1 standard drink = 0.6 oz pur e alcohol) Education Answer Date Recorded Are you interested in more education? Not on jovita e 04/25/2023 Are you concerned about learning? Not on file 04/25/2023 No 04/25/2023 No 04/25/2023 Digital Access Answer Date Recorded No 04/25/2023 No 04/25/2023 Reliable internet access at home? Not on file 04/25/2023 Device with a working camera? Not on file Intimate Partner Violence Answer Date R ecorded Are you denied basic needs s uch as food, clothing, or medical care? No 08/01/2024 In the past 12 months have y ou been in a relationship with a person who hurts, threatens, or tries to control you? No 08/01/2024 Are you denied basic needs s uch as food, clothing, or medical care? No 08/01/2024 In the past 12 months have y ou been in a relationship with a person who hurts, threatens, or tries to control you? No 08/01/2024 Sex and Gender Information Value Date Recorded Sex Assigned at Not on file Legal Sex Male 10:37 PM EDT Gender Identity Not on file Sexual Orientation Not on file documented as of this encounter Plan of Treatment Not on file documented as of this encounter Visit Diagnoses Not on filedocumented in this encounter Care Teams Management Professor Relationship Specialty Start Date End Date Clayton Chavez MD [address] [place] [phone] [email or web address] PCP - General Internal Medicine 07/29/24 documented as of this encounter Additional Source Comments The information contained in this document represents components of the legal health record. It is not the complete legal health record.[facility]
--- OUTSIDE RECORDS SUMMARY | 2024-12-23 10:25 | XMS_ITS | Clinical Summary ---
Author Organization [facility] Address [address] [place] [address] [address] [place] [address] Care Team Providers Care Inspector And Hand Packager Name Role Phone Clayton Lyon MD Primary Care Provide r Chris Leal MD Unavailable [phone] Allergies Active Allergy Reactions Criticality Noted Date Comments Alprazolam 03/28/2022 Dicyclomine 12/19/2017 Gabapentin 03/28/2022 Lisinopril 05/17/2016 Oxycodone 03/28/2022 Medications timolol (Timoptic) 0.5 % ophthalmic solution PLACE 1 DROP IN THE RIGHT EYE EVERY MORNING 12/23/19 22 Active pantoprazole (ProtoNix) 40 MG EC tablet Take 40 mg by mouth 2 times daily. 03/01/20 22 Active Blood Glucose Monitoring Suppl ([employer] Manor Lite) w/Device kit USE FOR TEST BLOOD SUGAR EVERY DAY 05/28/19 22 Active atorvastatin (Lipitor) 80 MG tablet Take 80 mg by mouth in the morning. 10/15/19 22 Active Eliquis 5 MG tablet Take 1 tablet by mouth 2 times daily. 06/20/19 25 Active Vericiguat 2.5 MG tablet Take 2.5 mg by mouth Once per day. 07/12/19 25 Active empagliflozin (Jardiance) 10 MG Take 10 mg by mouth Once per day. 07/12/19 25 Active Multiple Vitamin (Multivitamin) tabletIndicati ons:Fatigue due [...] BLOOD SUGAR TWICE DAILY DIRECTED 100 each 11 09/20/19 25 Active cetirizine (ZyrTEC) 10 MG tabletIndicati ons:Seasonal allergies Take 0.5 tablets (5 mg) by mouth Once per day. 15 tablet 3 09/20/19 25 Active Ventolin HFA 108 (90 Base) MCG/ACT inhalerIndicat ions:Restricti ve lung disease INHALE 2 PUFFS BY MOUTH EVERY 4 HOURS NEEDED FOR WHEEZING OR SHORTNESS OF BREATH 18 g 1 12/11/19 25 Active metoprolol succinate XL (Toprol-XL) 25 MG 24 hr tablet Take 25 mg by mouth Once per day. 12/09/19 25 Active traZODone (Desyrel) 100 MG tabletIndicati ons:Primary insomnia Take 1 tablet (100 mg) by mouth at bedtime. 30 tablet 3 12/18/19 25 Active fluticasone (Flonase) 50 MCG/ACT nasal spray INSTILL 2 SPRAYS IN EACH NOSTRIL ONCE DAILY 16 g 3 12/21/19 25 Active Ventolin HFA 108 (90 Base) MCG/ACT inhalerIndicat ions:Restricti ve lung disease INHALE 2 PUFFS BY MOUTH EVERY 4 HOURS NEEDED FOR WHEEZING OR SHORTNESS OF BREATH 18 g 1 04/16/19 25 025 Discontinued digoxin (Lanoxin) 125 MCG tablet Take 1 tablet by mouth Once per day. 06/20/19 25 09/23/2 025 Discontinued(Th erapy completed) metoprolol tartrate (Lopressor) 50 MG tablet Take 50 mg by mouth 1 (one) time each day. 07/12/19 025 Discontinued(Th erapy completed) fluticasone (Flonase) 50 MCG/ACT nasal spray Administer 2 sprays into each nostril Once per day. Shake gently. Before first use, prime pump. After use, clean tip and replace cap. 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 EKG and Trop negative on [...] systolic heart failure 08/13/2024 Assessment & Plan (12/17/2024 10:18 AM EDT): Pt with Chronic systolic heart failure. Last EF of 40-45% per cardiology last seen 12/11/2024 He has no hypoxia or edema. Back on Entresto and Jardiance . Cardiology added a trial of Kerendia Assessment & Plan (08/13/2024 9:21 AM EDT): Pt with Chronic systolic heart failure. EF of 20%. He has no hypoxia or edema. While in the Hospital his Entresto was held and was kept on Jardiance Atrial fibrillation (CMS/HCC) 07/01/2024 Assessment & Plan (12/17/2024 9:41 AM EDT): Pt here for a follow up, recently diagnosed with A.Fib with RVR. Under the care of Embroiderer Hand Dr. Leal who has recommended Cardioversion, done 08/18/2024, unfortunately went back to Afib. Seen by Cardiology 09/09/2024 who recommended ablation tat [facility] Pt is now S/p Ablation 10/24/2024 Last seen by Cardiology 12/11/2024 Assessment & Plan (09/19/2024 9:27 AM EDT): Pt here for a follow up, recently hospitalized and diagnosed with A.Fib with RVR. Under the care of Embroiderer Hand Dr. Leal who has recommended Cardioversion, done 08/18/2024, unfortunately went back to Afib. Seen by Cardiology 09/09/2024 who now recommended ablation to be scheduled at [facility] Assessment & Plan (08/13/2024 9:10 AM EDT): Pt recently hospitalized and diagnosed with A.Fib with RVR. Under the care of Embroiderer Hand Dr. Leal who has recommended Cardioversion Diverticulosis [...] (11/01/2022 10:24 AM EDT): Pt seen by Drywall Professional Dr Garcia He reviewed his laboratory results That included: CRP, RF, ESR and DAVIE were all Normal His assessment was that patient had fibromyalgia Right hand pain 11/01/2022 Assessment & Plan (02/14/2023 10:24 AM EST): Patient with painful right index finger, difficulty bending it. Seen at [facility] received steroid injections with good results 11/24/2022 Assessment & Plan (11/01/2022 10:25 AM EDT): Patient with painful right index finger, difficulty bending it. Seen in the past at [facility] received steroid injections with good results Pt would like to go back Grade II hemorrhoids 11/01/2022 Assessment & Plan (02/14/2023 10:24 AM EST): Evaluated by Dr Carney 10/2022 opted for conservative measures Assessment & Plan (11/01/2022 10:32 AM EDT): Patient with c/o BRBPR Exam indicative of hemorrhoids Plan: Increase fluid, fiber in diet Proctosl H Referral to Dr Carney [facility] care 08/02/2022 Assessment & Plan (12/17/2024 9:44 AM EDT): PSA 12/14/2023 Normal. Colonoscopy: 11/20/[address] Monroy 5 yr f/u Assessment & Plan (03/07/2024 9:56 AM EST): [...] EST): Pt seen in the ER at [facility] yesterday with cough, diagnosed with [...] shoulder pain. Seen in the past at [facility], last seen 02/27/2019 received a [...] PT. Primary insomnia 03/29/2022 Assessment & Plan (12/17/2024 9:54 AM EDT): Pt did not tolerate Rozerem, Plan: Trazodone 100 mg po qhs Assessment & Plan (03/29/2022 12:55 PM EST): [...] Clinical correlation recommended. Pt was seen by Data Control Assistant 08/2018 who thought this was due to [...] Clinical correlation recommended. Pt was seen by Data Control Assistant 08/2018 who thought this was due to [...] calcification. Type 2 diabetes mellitus with hyperlipidemia 04/2022 Assessment & Plan (12/17/2024 9:43 AM EDT): Patient is here for a follow up, doing well, he stopped Metformin on his own Hgb A1c :6.3 Pt is on Jardiance 10 mg po daily Pt reports compliance with Asa 81 mg po daily Foot check today is risk of: zero Plan: continue current regimen Pt educated about DM Pt advised to: adhere to diabetic diet check your blood sugars regularly check your feet on a daily basis. f/u 4 months Assessment & Plan (09/19/2024 9:51 AM EDT): [...] months Essential hypertension 04/02/2018 Assessment & Plan (12/17/2024 9:49 AM EDT): Patient is here for a follow up BP remains under control He is on a regimen of: Metoprolol XL 25 mg po daily and Entresto (restarted by [...] counseled about weight loss. Assessment & Plan (09/19/2024 9:23 AM EDT): [...] Dr Monroy 5 yr f/u Cerebrovascular accident ([facility]) 07/10/2013 Chronic headache disorder 03/22/2013 Assessment & [...] of his LS spine done showed: 1. Fekk-aj-vcsngzym loss of disc height at L4-L5 with a right paracentral disc extrusion resulting in mass effect upon the right L5 nerve root. Mild central canal stenosis. Broad-based left lateral disc protrusion and endplate spurring abutting the exiting left L4 nerve root. Dzmr-sz-nwykticm bilateral foraminal narrowing. 2. Mild spondylitic changes at other disc levels as described. No central canal stenosis. Pt has a f/u with them Chronic neck pain 12/20/2011 Depressive disorder 09/07/2011 Hypercholesterolemia 09/07/2011 Assessment & Plan (12/17/2024 9:39 AM EDT): Patient with elevated lipids. Most [...] goal for weight loss. Assessment & Plan (09/19/2024 9:52 AM EDT): [...] Encounters Date Type Department Care Team Description 12/23/2024 Orders Only GENERIC EXTERNAL DATA DEPARTMENT Provider, Generic External Data 12/20/2024 Refill [facility] [address] [place] [address] Jennie Zhu DO 12/17/2024 10:00 AM EDT Office Visit [facility] [address] [place] [address] Clayton Lyon MD 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) (CMS/HCC) (Primary Dx); Paroxysmal atrial fibrillation (CMS/HCC); Chronic systolic heart failure (CMS/HCC); Essential hypertension; Hypercholesterolemia; Preventative health care; Primary insomnia; Encounter for immunization 12/17/2024 Travel 12/16/2024 Telephone [facility] [address] [place] [address] Clayton Lyon MD chart prep 12/11/[address] [facility] [address] [place] [address] Clayton Lyon MD Nurse Triage 12/07/[address] [facility] [address] [place] [address] Clayton Lyon MD Restrictive lung disease 11/27/[address] [facility] [address] [place] [address] Clayton Lyon MD Durable Medical Equipment 11/21/[address] [facility] [address] [place] [address] Clayton Lyon MD Call Back Request 10/19/2024 Orders Only GENERIC EXTERNAL DATA DEPARTMENT Provider, Generic External Data 10/11/2024 9:30 AM EDT Telemedicine [facility] [address] [place] [address] Ban Toribio, Lam 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) ([facility]) (Primary Dx); Atrial fibrillation, unspecified type (CMS/HCC); Celiac artery compression syndrome (CMS/HCC); Essential hypertension; Chronic systolic heart failure (CMS/HCC) from Last 3 Months Immunizations Immunization Administration Dates Next Due Influenza High-dose Quadriva lent Preservative Free 02/14/2023,01/22/2020 Influenza injectable quadriv alent IIV4 with preservative 04/20/2017 Influenza injectable quadriv alent preservative free 04/27/2021,01/08/2019,05/17/2016 Influenza, High Dose Seasona l, Preservative Free 12/17/2024,12/05/2023,12/19/2017 Influenza, IIV3, injectable 11/25/2020,1 ,12/26/2018,12/25,11/25/2009 Moderna Covid-19 [...] Sign Reading Time Taken Comments Blood Pressure 110/64 12/17/2024 9:39 AM EDT Pulse 64 12/17/2024 9:39 AM EDT Temperature 37.2 C (98.9 F) 12/17/2024 9:39 AM EDT Respiratory Rate 18 12/17/2024 9:39 AM EDT Oxygen Saturation 98% 12/17/2024 9:39 AM EDT Inhaled Oxygen Concentration - - Weight 69.6 kg (153 lb 6.4 oz) 12/17/2024 9:39 A M EDT Height 170.2 cm (5' 7 ) 09/19/2024 9:17 AM EDT Body Mass Index 24.03 09/19/2024 9:17 AM EDT Plan of Treatment Upcoming Encounters Date Type Department Care Team (Late st Contact Info) Description 10/10/2025 9:30 AM EDT Medication Management [facility] [address] [place] [address] Ban Toribio, PharmD [address] [place] [address] Health Maintenance Due Date Last Done Comments Eye Exam 01/11/1955 COVID-19 Vaccine ( season) 2024 04/27/2021, 08/29/2020, 08/01/2020 Diabetes: Foot Exam 12/11/2024 12/12/2023, 12/12/2023, 12/12/2023 Diabetes: Urine Protein Screening 12/13/2024 12/14/2023, 04/04/2022, 06/10/2021 Alcohol/Substance Use Screening 03/07/2025 03/07/2024 Diabetes: Hemoglobin A1C 03/18/2025 025, 07/01/2024, 03/07/2024, Additional history exists SDOH Screening 04/16/2025 04/16/2024 Lipid Panel 09/09/2025 [...] Aged 60 years or older Completed 09/09/2024 Influenza Vaccine Completed 12/17/2024, , 02/14/2023, Additional history exists HIB Vaccines Aged Out [...] Procedure Name Priority Date/Time Associated Diagnosis Comments MAGNESIUM Routine 12/23/2024 9:46 AM EDT COMPREHENSIVE METABOLIC PANEL Routine 12/23/2024 9:46 AM EDT CBC WITH AUTO DIFFERENTIAL Routine 12/23/2024 9:46 AM EDT POCT GLUCOSE Routine 12/17/2024 10:02 AM EDT 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) ([facility]/HCC) POCT GLYCOSYLATED HEMOGLOBIN (HGB A1C) Routine 12/17/2024 10:00 AM EDT 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) ([facility]/HCC) PROTHROMBIN TIME-INR Routine 10/19/2024 9:56 AM EDT LIPID PANEL, STANDARD Routine 09/09/2024 9:27 AM EDT Hypercholesterolemia ALBUMIN, RANDOM URINE W/CREATININE Routine 12/14/2023 9:20 AM EDT Type 2 diabetes mellitus without complication, without long-term current use of insulin (CMS/HCC) HEPATITIS C AB W/REFL TO HCV RNA, QN, PCR Routine 04/04/2022 10:44 AM EST Type 2 diabetes mellitus without complication, without long-term current use of insulin ([facility]) from Last 3 Months or Most Recently Relevant to Health Maintenance Results * CBC auto differential (12/23/2024 9:46 AM EDT) White Blood Count 8.2 4.8 - 10.8 X10*3/uL [facility] Red Blood Count 5.00 4.60 - 5.80 X10*6/uL [facility] Hemoglobin 16.5 14.0 - 18.0 g/dl [facility] Hematocrit 48.6 42.0 - 52.0 % [facility] Mean Corpuscular Volume 97.2 80.0 - 98.0 fL [facility] Mean Corpuscular Hemoglobin 33.0 27.0 - 33.0 pg [facility] Mean Corpuscular HGB Conc 34.0 31.0 - 36.0 g/dl [facility] Red Cell Distribution Width 13.4 11.0 - 16.0 % [facility] Platelet Count 229 160 - 400 X10*3/uL [facility] Mean Platelet Volume 10.1 9.4 - 12.4 fL [facility] Neutrophils Percent Auto 57.7 45 - 73 % [facility] Imm Gran Pct Auto 0.4 0.0 - 0.4 % [facility] Lymphocytes Percent Auto 34.6 20 - 40 % [facility] Monocytes Percent Auto 6.6 2 - 11 % [facility] Eosinophils Percent Auto 0.5 0 - 4 % [facility] Basophils Percent Auto 0.2 0 - 2 % [facility] NRBC Pct Auto 0.0 0.0 - 0.2 /100WBC [facility] Neutrophils Absolute Auto 4.7 2.0 - 8.3 x10*3/uL [facility] Imm Gran Abs Auto 0.03 0.00 - 0.03 X10*3/uL [facility] Lymphocytes Absolute Auto 2.8 1.2 - 4.9 X10*3/uL [facility] Monocytes Absolute Auto 0.5 0.1 - 1.2 X10*3/uL [facility] Eosinophils Absolute Auto 0.0 0.0 - 0.4 X10*3/uL [facility] Basophils Absolute Auto 0.0 0.0 - 0.2 X10*3/uL [facility] NRBC Abs Auto 0.000 0.0 - 0.012 X10*3/uL [facility] 12/23/2024 9:46 AM EDT 12/23/2024 9:49 AM EDT us Generic External Data Provider LAB BLOOD ORDERAB LES Final Result [facility] [address] [place], [place] [phone] * Magnesium (12/23/2024 9:46 AM EDT) Magnesium 2.3 1.6 - 2.6 mg/dL [facility] 12/23/2024 9:46 AM EDT 12/23/2024 9:49 AM EDT us Generic External Data Provider LAB BLOOD ORDERAB LES Final Result [facility] [address] [place] [phone] * (ABNORMAL) Comprehensive Metabolic Panel (12/23/2024 9:46 AM EDT) Sodium 136 135 - 145 mmol/L [facility] Potassium 4.4 3.3 - 5.1 mmol/L [facility] Chloride 104 96 - 108 mmol/L [facility] Carbon Dioxide 25 22 - 29 mmol/L [facility] Anion Gap 11(L) 12 - 20 [facility] Urea Nitrogen (BUN) 18(H) 9 - 16 mg/dL [facility] Creatinine, Serum 1.17 0.5 - 1.4 mg/dL [facility] Creatinine Clr Calc Pharmacy 48.6 [facility] Comment:eGFR (calculated fro m the MDRD study equation) and eCrCl(calculated from the Cockcroft-Gault equation) are based ondifferent parameters and may not yield comparable results.If eCrCl result is absurd, please check patient'sheight/weight. Estimated Glomerular Filt Rate >60 [facility] Comment:Chronic Kidney Disea se: Estimated GFR < 60 mL/min/1.58p9Rydyda Kidney Disease: Estimated GFR < 15 mL/min/1.73m2 Glucose 103 60 - 115 mg/dL [facility] Calcium 9.7 8.4 - 10.2 mg/dL [facility] Bilirubin, Total 0.5 0.0 - 1.0 mg/dL [facility] Aspartate Amino Transferase 40(H) 5 - 37 U/L [facility] Alanine Aminotransferase 27 0 - 40 U/L [facility] Total Protein 7.5 6.5 - 8.0 g/dL [facility] Albumin Level 4.5 3.5 - 5.0 g/dL [facility] Alkaline Phosphatase 85 39 - 117 U/L [facility] 12/23/2024 9:46 AM EDT 12/23/2024 9:49 AM EDT Generic External Data Provider LAB BLOOD ORDERAB LES Final Result [facility] [address] [place] [phone] * POCT glucose manually resulted (12/17/2024 10:02 AM EDT) Glucose Blood, POC 80 60 - 200 mg/dL QC Media Lot # [id number] Lot# Expiration Date 2, Blood Capillary blood specimen / Unknown 12/17/2024 10:02 AM EDT Clayton Millard MD POINT OF CARE TEST EN TER/EDIT ORDERABLES Final Result * (ABNORMAL) POCT glycosylated hemoglobin (Hgb A1c) (12/17/2024 10:00 AM EDT) Hemoglobin A1C 6.3(A) 4.0 - 5.7 % QC Media Lot # [id number] Lot# Expiration Date 546, Blood Capillary blood specimen / Unknown 12/17/2024 10:00 AM EDT Clayton Millard MD POINT OF CARE TEST EN TER/EDIT ORDERABLES Final Result * (ABNORMAL) Prothrombin Time-INR (10/19/2024 9:56 AM EDT) Prothrombin Time 13.0(H) 10.9 - 12.4 SEC [facility] INTERNATIONAL NORM RATIO 1.1 0.9 - 1.1 [facility] Comment:INTERNATIONAL NORMAL IZED RATIO (INR) [...] ORDERAB LES Final Result Performing Organization Address [facility]/ZIP Co de Phone Number [facility] [address] [place] [phone] * (ABNORMAL) Lipid Panel, Standard (09/09/2024 9:27 AM EDT) Triglycerides 186(H) <150 mg/dL [facility] Comment:Desirable Triglyceri de: less than 150 mg/dLBorderline High Triglyceride 150-199 mg/dLHigh Triglyceride: 200-499 mg/dLVery High Triglyceride: greater than or equal to 5OO mg/dL Cholesterol 187 <200 mg/dL [facility] Comment:Desirable Cholestero l: less than 200 mg/dLBorderline High Cholesterol: 200-239 mg/dLHigh Cholesterol: greater than 239 mg/dL LDL Cholesterol Calculated 118(H) <100 mg/dL [facility] Comment:Desirable LDL: less than 100 mg/dLNear Optimal/Above Optimal LDL: 110- 129 mg/dLBorderline High LDL: 130-159 mg/dLHigh LDL: 160-189 mg/dLVery High LDL: greater than or equal to 190 mg/dL HDL Cholesterol 32(L) >40 mg/dL [facility] Comment:Desirable HDL: great er than 40 mg/dL Note: This HDL assay may give artificially low results in patients with liver disease. Blood Venous blood specimen / Unknown 09/09/2024 9:27 AM EDT 09/09/2024 11:20 AM EDT us Clayton Millard MD LAB BLOOD ORDERABLES Final Result Performing Organization Address City/[facility]/ZIP Co de Phone Number [facility] [address] [place] [phone] * Albumin, Random Urine W/Creatinine (12/14/2023 9:20 AM EDT) Creatinine, Urine 167.95 mg/dL [facility] Microalbumin Urine 8.0 mg/L [facility] Microalbum Creatinine Ratio Ur 4.7 <30 ug/mg cr [facility] Comment:Albumin/Creatinine R atio Reference Ranges: Normal: < 30 ug/mg creatinine Microalbuminuria: 30 - 300 ug/mg creatinineClinical Albuminuria: > 300 ug/mg creatinine Urine (Urine, Random) 12/14/2023 9:20 AM EDT 12/14/2023 11:13 AM EDT Clayton Millard MD LAB URINE ORDERABLES Final Result Performing Organization Address City/[facility]/ZIP Co de Phone Number [facility] [address] [place] [phone] * Hepatitis C Antibody with Reflex to HCV, RNA, Quantitative, Real-Time PCR (04/04/2022 10:44 AM EST) Hepatitis C Antibody NON-REACT FRANCHESCA NON-REACT FRANCHESCA [facility] Oy Index <0.02 <1.00 [facility] [employer]t Comment: HCV antibody was non-reactive. There is no laboratory evidence of HCV infection. In most cases, no further action is required. However, if recent HCV exposure is suspected, a test for HCV RNA (test code 84781) is suggested. For additional information please refer to http://education.[employer]/faq/IYT04j4 (This link is being provided for informational/ educational purposes only.) Blood Venous blood specimen / Unknown 04/04/2022 10:44 AM EST 04/04/2022 10:44 AM EST Narrative [facility] - 04/05/2022 6:45 PM EST FASTING:YES FASTING: YES Clayton Millard MD LAB BLOOD ORDERABLES Final Result [facility] [address] [place] [address] [facility] [address], ([address]) [place] [phone] from Last 3 Months or Most Recently Relevant to Health Maintenance Insurance [facility] ASSISTED OPTIONS (HMO D-SNP) [place] [id number] Care Teams Inspector And Hand Packager Relationship Specialty Start Date End Date Clayton Lyon MD [address] [place] [address] PCP - General Internal Medicine 11/12/13 Chris Leal MD [address] [place] [address] Cardiology 07/10/24 [facility] 08/18/21
--- OUTSIDE RECORDS SUMMARY | 2024-12-23 10:25 | XMS_ITS | Encounter Summary ---
Author Organization [employer] Address [address] [place] [address] Care Team Providers Care Guide Delegate Name Role Phone Clayton Lyon MD Primary Care Provide r Chris Leal MD Unavailable [phone] Reason for Visit * Reason Onset Date Comments ER Follow-up 08/31/2023 Encounter Details Date Type Department Care Team ([facility] Contact Info) Description 08/31/2023 Telephone [facility] [address] [place], [place] [phone] Clayton Lyon MD [address] [place], [place] [phone] ER Follow-up Social History Tobacco Use Types [...] ED visit on : Date: 09/18/23 Hospital: [facility] Seen for: fall Patient advised will forward to team nurse for follow up documented in this encounter Plan of Treatment Upcoming Encounters Date Type Department Care Team (Late st Contact Info) Description 10/10/2025 9:30 AM EDT Medication Management [facility] [address] [place] [address] Ban Toribio, PharmD [address] [place] [address] documented as of this encounter Visit Diagnoses Not on filedocumented in this encounter Care Teams Guide Delegate Relationship Specialty Start Date End Date Clayton Lyon MD [address] [place] [address] PCP - General Internal Medicine 11/12/13 Chris Leal MD [address] [place] [address] Cardiology 07/10/24 [facility] 08/18/21 documented as of this encounter
--- OUTSIDE RECORDS SUMMARY | 2024-12-23 10:25 | XMS_ITS | Clinical Summary ---
Author Organization [facility] Address [address] [facility] [address] [place] [phone] Phone Care Team Providers Care Mounter Clarinets Name Role Phone Clayton Chavez MD Primary Care Provide r Allergies Active Allergy Reactions Criticality Noted Date Comments Gabapentin 07/30/2024 Lisinopril Cough 07/30/2024 Oxycodone 07/30/2024 Oxycodone-Acetaminophen 07/30/2024 Medications metoprolol tartrate (LOPRESSOR) 25 MG tablet Take 25 mg by mouth daily as needed. Active metoprolol tartrate (LOPRESSOR) 50 MG tablet Take 50 mg by mouth every evening. Active apixaban (ELIQUIS) 5 mg tablet Take 5 mg by mouth 2 (two) times a day. Active metFORMIN (GLUCOPHAGE-XR) 500 MG 24 hr tablet Take 500 mg by mouth daily with dinner. Active amitriptyline (ELAVIL) 25 MG tablet Take 25 mg by mouth nightly at bedtime. Active famotidine (PEPCID) 40 MG tablet Take 40 mg by mouth nightly at bedtime as needed for heartburn. Active valsartan (DIOVAN) 40 MG tablet Take 20 mg by mouth 2 (two) times a day. 24mg-26mg? Active timolol (ISTALOL) 0.5 % DrpD ophthalmic solution Place 1 drop into each eye daily. Active atorvastatin (LIPITOR) 80 MG tablet Take 80 mg by mouth daily. Active pantoprazole (PROTONIX) 40 MG tablet Take 40 mg by mouth daily. Active albuterol 90 mcg/actuation inhaler Inhale 2 puffs into the lungs every 6 (six) hours as needed for wheezing. Active aspirin 81 mg chewable tablet Take 81 mg by mouth daily. Active digoxin (LANOXIN) 125 mcg tablet Take 125 mcg by mouth daily. Active empagliflozin (JARDIANCE) 10 mg tablet Take 10 mg by mouth daily. Active vericiguat 2.5 mg Tab Take 2.5 mg by mouth daily. Active Social History Tobacco Use Types Packs/Day Years [...] on file Sexual Orientation Not on file Last Filed Vital Signs Vital Sign Reading Time Taken Comments Blood Pressure 108/83 08/01/2024 1:40 PM EDT Pulse 67 08/01/2024 1:40 PM EDT Temperature 36.3 C (97.3 F) 08/01/2024 1:40 PM EDT Respiratory Rate 19 08/01/2024 1:40 PM EDT Oxygen Saturation 97% 08/01/2024 1:40 PM EDT Inhaled Oxygen Concentration - - Weight 73 kg (161 lb) 08/01/2024 10:39 AM EDT Height 170.2 cm (5' 7 ) 08/01/2024 10:39 AM EDT Body Mass Index 25.22 08/01/2024 10:39 AM EDT Plan of Treatment Health Maintenance Due Date Last Done Comments CREATININE LEVEL 1946 POTASSIUM LEVEL 1946 DEPRESSION SCREENING 1958 SMOKING Hx and SMOKELESS TOB ACCO SCREENING 1959 HEPATITIS C SCREENING 01/11/1964 ZOSTER VACCINES (1 of 2) 01/11/1996 PNEUMOCOCCAL VACCINES (50+ y ears) (2 of 2 - PCV) 08/17/2018 08/17/2017 RSV VACCINE (1 - 1-dose 75+ series) 2021 Adult Td,Tdap Booster 03/22/2023 03/22/2013 INFLUENZA VACCINE (#1) 2024 COVID-19 VACCINE ( - 2023-2 5 season) 2024 LIPID PANEL 12/13/2028 12/14/2023 HEPATITIS A VACCINES Aged Out No long er eligible based on patient's age to complete this topic HIB VACCINES Aged Out No longer eligi ble based on patient's age to complete this topic MENINGOCOCCAL VACCINES (ACWY) Aged Out No longer eligible based on patient's age to complete this topic MENINGOCOCCAL VACCINES (B) Aged Out N o longer eligible based on patient's age to complete this topic Medical Devices Not on file Insurance MEDICARE PART A & [facility] MEDICARE PART A & B [facility] MEDICARE REPLACEMENT MEDICARE PART A & B [facility] MEDICARE REPLACEMENT MEDICARE PART A & B [facility] MEDICARE REPLACEMENT MEDICARE PART A & B Member Subscriber Plan / Payer (Ef fective 2010-Present) Name:Shelton Gonzalez Member ID:[id number] Relation to Subscriber:Self Name:Shelton Gonzalez Subscriber ID:[id number] Payer ID:[id number] Group ID:Not on file Type:Medicare Address: [employer] [address] [place] [address] [place] [address] MEDICARE REPLACEMENT MEDICARE PART A & B [facility] MEDICARE REPLACEMENT Care Teams Mounter Clarinets Relationship Specialty Start Date End Date Clayton Chavez MD [address] [place] [phone] [email or web address] PCP - General Internal Medicine 07/29/24 Additional Source Comments The information contained in this document represents components of the legal health record. It is not the complete legal health record.[facility]
--- OUTSIDE RECORDS SUMMARY | 2024-12-23 10:26 | XMS_ITS | Encounter Summary ---
Author Organization [employer] Address [address] [facility] 7t [place] [address] Care Team Providers Care Dispatcher Bus And Trolley Name Role Phone Clayton Lyon MD Primary Care Provide r Chris Leal MD Unavailable Reason for Visit * Reason Comments Med Refill Encounter Details Date Type Department Care Team ([facility] Contact Info) Description 12/20/2024 Refill [facility] [address] [place], [place] [phone] Jennie Zhu DO [address] [place] [address] Social History Tobacco Use Types Packs/Day Years [...] your housing situation today? I have elena sing 04/16/[address] you li [...] Description 10/10/2025 9:30 AM EDT Medication Management [facility] [address] [place] [address] Ban Toribio, PharmD [address] [place] [address] documented as of this encounter Visit Diagnoses Not on filedocumented in this encounter Additional Health Concerns Assessment Noted Time PHQ-9 Depression Total Score: 0 09/20/19 25 9:19 AM EDT documented as of this encounter Care Teams Dispatcher Bus And Trolley Relationship Specialty Start Date End Date Clayton Lyon MD [address] [place] [address] PCP - General Internal Medicine 11/12/13 Chris Leal MD [address] [place] [address] Cardiology 07/10/24 [facility] 08/18/21 documented as of this encounter
--- OUTSIDE RECORDS SUMMARY | 2024-12-23 10:26 | XMS_ITS | Patient Health Record ---
Author Organization [facility] Address [address] [place] [address] Care Team Providers Care Cotton Inspector Name Role Phone Dawson Millard MD, Clayton Primary Care Provide Glenn Mary Jr Unavailable Allergies Allergen (clinical drug ingredient) Drug/Non Drug Allergy documented on EMR Reaction Allergy Type Onset Date Status lisinopril Lisinopril Unknown Drug Allergy Activ e gabapentin Gabapentin Unknown Drug Allergy Activ e acetaminophen / oxycodone Percocet Unknown Drug Allergy Active zanac (uncoded) Unknown Allergy Acti ve oxycodone Oxycodone Unknown Drug Allergy Active Reason For Referral No Information Medications Medication [...] Problem Status W/U Status Risk Notes Problem 894179830 Colon cancer screening (Z12.11) Active confirmed Problem 82493283 Epigastric pain (R10.13) Active confirmed Problem Gastro-esophage al reflux disease without esophagitis (673613359) Gastro-esophageal reflux disease without esophagitis (K21.9) Active confirmed Problem 875077333 supervisor intermediates (curre nt) use of anticoagulants (Z79.01) Active confirmed Problem 183955693 Personal history of colonic polyps (Z86.010) Active confirmed Problem 325921654 Irritable bowel syndrome with diarrhea (K58.0) Active confirmed Problem 688514964 Generalized abdominal pain (R10.84) Active confirmed Problem 768485320 Diverticulitis (K57.92) Active confirmed Problem 414523362 Gastroesophageal reflux disease without esophagitis (K21.9) Active confirmed Problem History of polyp of colon (808624970) History of colon polyps (Z86.010) Active confirmed Problem 268622715 Gastroesophageal reflux disease with esophagitis without hemorrhage (K21.00) Active confirmed Vital Signs Temperature 97.5 degrees Fahrenheit 07/08/2024 Blood pressure diastolic 01 mm Hg 07/08/2024 Height 67 in 07/08/2024 Blood pressure systolic 001 mm Hg 07/08/2024 Weight 160 lbs 07/08/2024 BMI 25.06 kg/m2 07/08/2024 Encounters Encounter Location Date Provider Diagnosis [facility] [address] [place] [phone] 07/08/2024 Glenn Monroy Jr Diverticulitis K57.92 and [facility] (current) use of anticoagulants Z79.01 [facility] [address] [place] [address] 05/30/2024 Glenn Monroy Jr [facility] [address] [place] [address] 07/08/2024 Glenn Monroy Jr [facility] [address] [place] [address] 08/15/2024 Glenn Monroy Jr Assessments Encounter Date Diagnosis (ICD Code) Assessment Notes Treatment Notes Treatment Clinical Notes Section Notes 07/08/2024 [facility] (current) use of anticoagulants (ICD-10 - Z79.01) [...] days before the procedure. Plan Of Treatment Pending Test Test Name Order Date XR GI SERIES 01/03/2019 Future Test Test Name Order Date UPPER GI ENDOSCOPY 10/29/2014 UPPER GI ENDOSCOPY 01/13/2016 COLONOSCOPY 01/13/2016 UPPER GI ENDOSCOPY 10/29/2020 COLONOSCOPY 10/29/2020 UPPER GI ENDOSCOPY 08/14/2023 COLONOSCOPY 07/08/2024 Insurance Providers Payer Name Payer Address Payer Phone Subscriber Number Group Number Insured Name Patient Relationship to Insured Coverage Start Date Coverage End Date [facility] [address] Attn Claims CIPRIANO Julio [id number] ROBB PADRON Self - patient is the [...]
--- OUTSIDE RECORDS SUMMARY | 2024-12-23 10:26 | XMS_ITS | Clinical Summary ---
Author Organization [employer] [facility] Address [address] [place] [address] Care Team Providers Care Publishing Editor Name Role Phone Clayton Chavez MD Primary [...] 03/06/2022 Social Influencers of Health Screening 03/06/2022 Depression Screening 03/27/2024 COVID-19 Vaccine (1 - 2023-2 5 season) 2024 Influenza Vaccine (#1) 2024 0, 01/08/2019 HIB [...] age to complete this topic Care Teams Publishing Editor Relationship Specialty Start Date End Date Clayton Chavez MD [address] [place] [address] [facility] [place] [address] PCP - General Internal Medicine 06/26/14
--- OUTSIDE RECORDS SUMMARY | 2024-12-23 10:26 | XMS_ITS | Encounter Summary ---
Author Organization [employer] Address [address] [place] [address] Care Team Providers Care Digital Sales Manager Name Role Phone Clayton Lyon MD Primary Care Provide r Chris Leal MD Unavailable [phone] Encounter Details Date Type Department Care Team (Late st Contact Info) Description 03/07/2022 [facility] Health Information Management [address] [place] [address] Clayton Lyon MD [address] [place] [address] Social History Tobacco Use Types Packs/Day Years [...] Department Care Team (Late Contact Info) Description 10/10/2025 9:30 AM EDT Medication Management [facility] [address] [place] [address] Ban Toribio PharmD [address] [place] [address] documented as of this encounter Procedures Procedure Name Priority Date/Time Associated Diagnosis Comments PSA, TOTAL Routine 12/05/2022 11:19 AM EDT STREP A NUCLEIC ACID Routine 05/30/2022 11:58 AM EST SARS COV2/INFLUENZA A/B AND RSV RNA QL NAAT Routine 05/30/2022 11:58 AM EST documented in this encounter Results * PSA,Total (12/05/2022 11:19 AM EDT) Prostate Specific Antigen 0.50 <0.05 - 4.0 ng/mL [facility] Comment:PSA methodology: Abb yong Aliemelity i ChemiluminescentMicroparticle Immunoassay (CMIA) 12/05/2022 11:1 9 AM EDT 12/05/2022 11:19 AM EDT [facility] External Provider LAB BLO OD ORDERABLES Final Result Performing Organization Address City/State/[facility] Co de Phone Number [facility] [address] [place] [phone] * SARS-CoV-2 RNA, Influenza A/B, and RSV RNA, Ql NAAT (05/30/2022 11:58 AM EST) Influenza A PCR NEGATIVE Negative [facility] Influenza B PCR NEGATIVE Negative [facility] Resp Syncy Virus RNA Qual PCR NEGATIVE Negative [facility] SARS COV2 PCR NEGATIVE Negative [facility] SARS/Flu/RSV Note See Note [facility] Comment:All test results mus t be [...] use by authorized laboratories.Testing performed on the [employer] GeneXpert utilizingreal-time RT-PCR.All SARS CoV2 and positive influenza A/B results arereported to [facility]. 05/30/2022 11:5 8 AM EST 05/30/2022 12:03 PM EST [facility] Exter nal Provider LAB MICROBIOLOGY - GENERAL ORDERABLES Final Result Performing Organization Address [facility] de Phone Number [facility] [address] [place] [address] [phone] * Strep A Nucleic Acid (05/30/2022 11:58 AM EST) IDNOW SERIAL# [id number] [facility] Strep A Nucleic Acid Negative Negative [facility] Comment:All test results mus t be correlated with clinical findings.This test has not been evaluated for monitoring treatment ofinfection.Additional follow-up testing using the culture method isrequired if the result is negative and clinical symptomspersist, or in the event of an acute rheumatic feveroutbreak. 05/30/2022 11:5 8 AM EST 05/30/2022 12:03 PM EST [facility] Exter nal Provider LAB MICROBIOLOGY - GENERAL ORDERABLES Final Result Performing Organization Address [facility] de Phone Number [facility] [address] [place] [address] [phone] documented in this encounter Visit Diagnoses Not on filedocumented in this encounter Care Teams Digital Sales Manager Relationship Specialty Start Date End Date Clayton Lyon MD [address] [place] [address] PCP - General Internal Medicine 11/12/13 Chris Leal MD [address] [place] [address] Cardiology 07/10/24 [facility] 08/18/21 documented as of this encounter
--- OUTSIDE RECORDS SUMMARY | 2024-12-23 10:26 | XMS_ITS | Encounter Summary ---
Author Organization [employer] Address [address] [facility] 7[address] [place] [address] Care Team Providers Care Wool Shearing Supervisor Name Role Phone Clayton Lyon MD Primary Care Provide r Chris Leal MD Unavailable [phone] Encounter Details Date Type Department Care Team ([facility] st Contact Info) Description 12/23/2024 Orders Only GENERIC EXTERNAL DATA [...] Description 10/10/2025 9:30 AM EDT Medication Management [facility] [address] [place] [address] Ban Toribio, PharmD [address] [place] [address] documented as of this encounter Procedures Procedure Name Priority Date/Time Associated Diagnosis Comments CBC WITH AUTO DIFFERENTIAL Routine 12/23/2024 9:46 AM EDT MAGNESIUM Routine 12/23/2024 9:46 AM EDT COMPREHENSIVE METABOLIC PANEL Routine 12/23/2024 9:46 AM EDT documented in this encounter Results * Magnesium (12/23/2024 9:46 AM EDT) Magnesium 2.3 1.6 - 2.6 mg/dL [facility] 12/23/2024 9:46 AM EDT 12/23/2024 9:49 AM EDT us Generic External Data Provider LAB BLOOD ORDERAB LES Final Result [facility] [address] [place] [phone] * (ABNORMAL) Comprehensive Metabolic Panel (12/23/2024 9:46 AM EDT) Sodium 136 135 - 145 mmol/L [facility] Potassium 4.4 3.3 - 5.1 mmol/L [facility] Chloride 104 96 - 108 mmol/L [facility] Carbon Dioxide 25 22 - 29 mmol/L [facility] Anion Gap 11(L) 12 - 20 [facility] Urea Nitrogen (BUN) 18(H) 9 - 16 mg/dL [facility] Creatinine, Serum 1.17 0.5 - 1.4 mg/dL [facility] Creatinine Clr Calc Pharmacy 48.6 [facility] Comment:eGFR (calculated fro m the MDRD study equation) and eCrCl(calculated from the Cockcroft-Gault equation) are based ondifferent parameters and may not yield comparable results.If eCrCl result is absurd, please check patient'sheight/weight. Estimated Glomerular Filt Rate >60 [facility] Comment:Chronic Kidney Disea se: Estimated GFR < 60 mL/min/1.87m3Iycsll Kidney Disease: Estimated GFR < 15 mL/min/1.73m2 Glucose 103 60 - 115 mg/dL [facility] Calcium 9.7 8.4 - 10.2 mg/dL [facility] Bilirubin, Total 0.5 0.0 - 1.0 mg/dL [facility] Aspartate Amino Transferase 40(H) 5 - 37 U/L [facility] Alanine Aminotransferase 27 0 - 40 U/L [facility] Total Protein 7.5 6.5 - 8.0 g/dL [facility] Albumin Level 4.5 3.5 - 5.0 g/dL [facility] Alkaline Phosphatase 85 39 - 117 U/L [facility] 12/23/2024 9:46 AM EDT 12/23/2024 9:49 AM EDT us Generic External Data Provider LAB BLOOD ORDERAB LES Final Result [facility] [address] [place] [address] [phone] * CBC auto differential (12/23/2024 9:46 AM EDT) White Blood Count 8.2 4.8 - 10.8 X10*3/uL [facility] Red Blood Count 5.00 4.60 - 5.80 X10*6/uL [facility] Hemoglobin 16.5 14.0 - 18.0 g/dl [facility] Hematocrit 48.6 42.0 - 52.0 % [facility] Mean Corpuscular Volume 97.2 80.0 - 98.0 fL [facility] Mean Corpuscular Hemoglobin 33.0 27.0 - 33.0 pg [facility] Mean Corpuscular HGB Conc 34.0 31.0 - 36.0 g/dl [facility] Red Cell Distribution Width 13.4 11.0 - 16.0 % [facility] Platelet Count 229 160 - 400 X10*3/uL [facility] Mean Platelet Volume 10.1 9.4 - 12.4 fL [facility] Neutrophils Percent Auto 57.7 45 - 73 % [facility] Imm Gran Pct Auto 0.4 0.0 - 0.4 % [facility] Lymphocytes Percent Auto 34.6 20 - 40 % [facility] Monocytes Percent Auto 6.6 2 - 11 % [facility] Eosinophils Percent Auto 0.5 0 - 4 % [facility] Basophils Percent Auto 0.2 0 - 2 % [facility] NRBC Pct Auto 0.0 0.0 - 0.2 /100WBC [facility] Neutrophils Absolute Auto 4.7 2.0 - 8.3 x10*3/uL [facility] Imm Gran Abs Auto 0.03 0.00 - 0.03 X10*3/uL [facility] Lymphocytes Absolute Auto 2.8 1.2 - 4.9 X10*3/uL [facility] Monocytes Absolute Auto 0.5 0.1 - 1.2 X10*3/uL [facility] Eosinophils Absolute Auto 0.0 0.0 - 0.4 X10*3/uL [facility] Basophils Absolute Auto 0.0 0.0 - 0.2 X10*3/uL [facility] NRBC Abs Auto 0.000 0.0 - 0.012 X10*3/uL [facility] 12/23/2024 9:46 AM EDT 12/23/2024 9:49 AM EDT us Generic External Data Provider LAB BLOOD ORDERAB LES Final Result [facility] [address] [place] [address] [phone] documented in this encounter Visit Diagnoses Not on filedocumented in this encounter Additional Health Concerns Assessment Noted Time PHQ-9 Depression Total Score: 0 09/20/19 25 9:19 AM EDT documented as of this encounter Care Teams Wool Shearing Supervisor Relationship Specialty Start Date End Date Clayton Lyon MD [address] [place] [address] PCP - General Internal Medicine 11/12/13 Chris Leal MD [address] [place] [phone] Cardiology 07/10/24 [facility] 08/18/21 documented as of this encounter
--- OUTSIDE RECORDS SUMMARY | 2024-12-23 10:26 | XMS_ITS | Encounter Summary ---
Author Organization [employer] Address [address] [place] [address] 7 [place] [address] Care Team Providers Care Bioinformatics Technician Name Role Phone Clayton Lyon MD Primary Care Provide r Chris Leal MD Unavailable [phone] Encounter Details Date Type Department Care Team (Latest Contact Info) Description 10/16/2020 Abstract [facility] CONVERSIONS Dental, Provider, DDS Social History Tobacco [...] Description 10/10/2025 9:30 AM EDT Medication Management [facility] [address] [place] [address] Ban Toribio, PharmD [address] [place] [address] documented as of this encounter Visit Diagnoses Not on filedocumented in this encounter Care Teams Bioinformatics Technician Relationship Specialty Start Date End Date Clayton Lyon MD [address] [place] [address] PCP - General Internal Medicine 11/12/13 Chris Leal MD [address] [place] [address] Cardiology 07/10/24 [facility] 08/18/21 documented as of this encounter
--- OUTSIDE RECORDS SUMMARY | 2024-12-23 10:26 | XMS_ITS | Encounter Summary ---
Author Organization [employer] Address [address] [place] [address] 7 [place] [address] Care Team Providers Care School Occupational Therapist Name Role Phone Clyaton Lyon MD Primary Care Provide r Chris Leal MD Unavailable [phone] Reason for Visit * Reason Onset Date Comments Hospital Follow-up 06/20/2024 Encounter Details Date Type Department Care Team ([facility] Contact Info) Description 06/20/2024 Telephone [facility] [address] [place], [place] [phone] Clayton Lyon MD [address] [place], [place] [phone] Hospital Follow-up Social History Tobacco Use Types [...] your housing situation today? I have elena hi 04/16/[address] you li [...] EDT Tc from pt returning phone call. [phone] * Telephone Encounter - Jade Zaidi - 06/20/2024 9:42 AM EDT Tc from pt requesting a F appt. Hospital: [facility] Date of admission: 06/15/2024 Discharge date: 06/19/2024 Diagnosed: Cardiomyopathy heart working 20 % severe heart failure Atrial fibrillation with RVR Pneumonia Diverticulitis *Send message to [facility] Clinical Care Coordinators documented in this encounter Plan of Treatment Upcoming Encounters Date Type Department Care Team (Late st Contact Info) Description 10/10/2025 9:30 AM EDT Medication Management [facility] [address] [place], [place] [phone] Ban Toribio, PharmD [address] [place], [place] [phone] documented as of this encounter Visit Diagnoses Not on filedocumented in this encounter Additional Health Concerns Assessment Noted Time PHQ-9 Depression Total Score: 0 12/12/19 24 10:28 AM EDT documented as of this encounter Care Teams School Occupational Therapist Relationship Specialty Start Date End Date Clayton Lyon MD [address] [place] [address] PCP - General Internal Medicine 11/12/13 Chris Leal MD [address] [place] [address] Cardiology 07/10/[address] [facility] 08/18/21 documented as of this encounter
[2024-12-23 11:07] VITALS: BP 100/58; PULSE 47; RESP 12; O2SAT 100
[2024-12-23 11:19] LABS: Appearance Urine Clear; Glucose Urine UA >=1000 mg/dL (Negative); PH 6.5 (5.0-9.0); Specific Gravity - Urine 1.015 (1.005-1.025); UMIC TRIGGER UACC YES
[2024-12-23 12:47] VITALS: BP 102/58; PULSE 48; RESP 12; TEMP 36.7; O2SAT 100
== END 2024-12-23 12:49 | disposition home or self-care (01) ==
PROVIDERS: Emergency Provider Emergency Medicine; PCP Internal Medicine
DX: G47.00 Insomnia, unspecified (principal); R10.13 Epigastric pain; I48.91 Unspecified atrial fibrillation; I50.22 Chronic systolic (congestive) heart failure; E11.9 Type 2 diabetes mellitus without complications; Z79.899 Other long term (current) drug therapy
CPT/HCPCS: 36415; 80053; 81001; 83735; 85025; 99283; 99284

== ENCOUNTER 2024-12-28 21:00 | Emergency (ER) | payer OTHER, SELFPAY ==
--- OUTSIDE RECORDS SUMMARY | 2023-09-13 05:00 | XMS_ITS ---
Author Organization [facility] Address [address] [place] [address] Care Team Providers Care Silver Solderer Name Role Phone Dawson Millard MD, Clayton Primary Care Provide Glenn Mary Jr Unavailable Encounters Encounter Location Date Provider Diagnosis [facility] [address] [place] [address] 09/13/2023 Glenn Monroy Jr Plan Of Treatment No Information Progress Notes * ROBB PADRONDOB:1945 ( 79 yo M)Acc No.[id number]:09/13/2023 Progress Notes Patient: ROBB GONZALEZ Provider: Rich Monroy MD :1945 A ge:78 Y S ex:Male Date:09/13/2023 Address:[address], [place] [id number] Pcp:Clayton valdovinos MD Subjective: * Chief Complaints: [...] MD Date: 0 09/13/2023 Generated for Santosh dillard/Codie/eTdiandrasmitting on: 1 12:41 AM EDT
--- OUTSIDE RECORDS SUMMARY | 2023-09-22 05:20 | XMS_ITS ---
Author Organization [facility] Address [address] [place] [phone] Care Team Providers Care Supervisor Assembly And Packing Name Role Phone Dawson Millard MD, Clayton Primary Care Provide r Glenn Thompson Jr Unavailable REASON FOR VISIT gerd Problems Problem Type SNOMED Code ICD Code Onset Dates Problem Status W/U Status Risk Notes Problem Gastro-esophagea l reflux disease without esophagitis (740462009) Gastro-esophage al reflux disease without esophagitis (K21.9) Active confirmed Encounters Encounter Location Date Provider Diagnosis [facility] [place] [address] [place] [phone] 09/22/2023 Glenn Monroy Jr Gastro-esophageal reflux disease without esophagitis K21.9 Assessments Encounter Date Diagnosis (ICD Code) Assessment Notes Treatment Notes Treatment Clinical Notes Section Notes 09/22/2023 Gastro-esophagea l reflux disease without esophagitis (ICD-10 - K21.9) Plan Of Treatment No Information Progress Notes * ROBB PADRONDOB:1945 ( 79 yo M)Acc No.[id number]:09/22/2023 EGD/MAC Patient: ROBB GONZALEZ Provider: Rich Monroy MD :1945 A ge:78 Y S ex:Male Date:09/22/2023 Address:[address], [id number] Pcp:Clayton valdovinos MD Subjective: * Chief Complaints: [...] 09/22/2023 Generated for Santosh dillard/Codie/Manishaitting on: 1 12:41 AM EDT
--- OUTSIDE RECORDS SUMMARY | 2024-09-03 04:20 | XMS_ITS ---
Author Organization [facility] Address [address] [place] [address] Care Team Providers Care Oil Paint Shader Name Role Phone Dawson Millard MD, Clayton Primary Care Provide r Glenn Thompson Jr Unavailable REASON FOR VISIT diverticulitis Encounters Encounter Location Date Provider Diagnosis [facility] [place] [address] [place] [phone] 09/03/2024 Glenn Monroy Jr Plan Of Treatment No Information Progress Notes * PADRONROBBDOB:1945 ( 79 yo M)Acc No.[id number]:09/03/2024 COLON WITH MAC Patient: ROBB GONZALEZ Provider: Rich Monroy MD :1945 A ge:79 Y S ex:Male Date:09/03/2024 Address:[address] [place] [facility] Pcp:Clayton valdovinos MD Subjective: * Chief Complaints: [...] MD Date: 0 09/03/2024 Generated for Santosh dillard/Codie/eTransmitting on: 1 12:41 AM EDT
--- OUTSIDE RECORDS SUMMARY | 2024-12-24 11:00 | XMS_ITS | Encounter Summary ---
Author Organization [employer] Address [address] [place] [address] [address] [place] [address] Care Team Providers Care Sports Media Name Role Phone Clayton Lyon MD Primary Care Provide r Chris Leal MD Unavailable [phone] Reason for Referral * Consultation (Routine) - Closed Specialty Diagnoses / Procedures Referred By Contac t Referred To Contact Behavioral Health Diagnoses Primary insomnia Anxiety Josselyn Enrique MD [address] [place] [phone] Phone: tel: fax: Referral ID Status Reason Start Date Expiration Date V isits Requested Visits Authorized [id number] Closed Specialty Services Required 12/24/2024 12/24/2025 1 1 Reason for Visit * Reason Comments Sleep Apnea Encounter Details Date Type Department Care Team (Late st Contact Info) Description 12/24/2024 11:00 AM EDT Office Visit [facility] [address] [place] [address] [phone] Josselyn Enrique MD [address] [place] [address] [phone] Primary insomnia (Primary Dx); Anxiety Social History Tobacco Use Types Packs/Day Years [...] AM EDT documented as of this encounter Last Filed Vital Signs Vital Sign Reading Time Taken Comments Blood Pressure 104/63 12/24/2024 11:25 AM EDT Pulse 75 12/24/2024 11:25 AM EDT Temperature 36.6 C (97.9 F) 12/24/2024 11:25 AM EDT Respiratory Rate 16 12/24/2024 11:25 AM EDT Oxygen Saturation 97% 12/24/2024 11:25 AM EDT Inhaled Oxygen Concentration - - Weight 68 kg (150 lb) 12/24/2024 11:25 AM EDT Height - - Body Mass Index 23.49 09/19/2024 9:17 AM EDT documented in this encounter Progress Notes * Josselyn Enrique MD - 12/24/2024 11:00 AM EDT Subjective Patient ID: Shelton Davis is a 79 y.o. male with past medical history of atrial fibulation, CVA, choric pain, chronic systolic heart failure, hypertension, fibromyalgia, hypertension, primary insomnia,type 2 diabetes who presents to walk in clinic for difficulty sleeping. Mr. Davis was seen in [facility] yesterday for sleeping difficulties for 9-10 days. Pt was on melatonin but medication has several side and still has help the pt to sleep. Was put on Trazodone 100mg at bedtime but, that upset his stomach and gave him Heartburn. He reprots not sleeping form anxiety and crying. No suicidial or homacidial ideation. Review of Systems Neurological: Negative for dizziness, tremors, speech difficulty, weakness, light-headedness, numbness and headaches. Psychiatric/Behavioral: Positive for sleep disturbance. Negative for agitation, hallucinations and suicidal ideas. The patient is nervous/anxious. Objective Visit Vitals BP 104/63 (BP Location: Left arm, Patient Position: Sitting, BP Cuff Size: Adult) Pulse 75 Temp 97.9 ??F (36.6 ??C) (Temporal) Resp 16 Body mass index is 23.49 kg/m??. Physical Exam Constitutional: Appearance: Normal appearance. Cardiovascular: Rate and Rhythm: Normal rate and regular rhythm. Heart sounds: Normal heart sounds. Pulmonary: Effort: Pulmonary effort is normal. Breath sounds: Normal breath sounds. Abdominal: General: Abdomen is flat. Palpations: Abdomen is soft. Tenderness: There is no abdominal tenderness. Musculoskeletal: Cervical back: Normal range of motion and neck supple. Lymphadenopathy: Cervical: No cervical adenopathy. Skin: General: Skin is warm and dry. Neurological: General: No focal deficit present. Mental Status: He is oriented to person, place, and time. Mental status is at baseline. Psychiatric: Mood and Affect: Mood normal. Behavior: Behavior normal. Thought Content: Thought content normal. Judgment: Judgment normal. Assessment & Plan Primary insomnia Causing significant distress and ER visit. Discontinue trazodone due to heart burn. No improvement with melatonin. Trial of Remeron 7.5mg at bedtime prn. Discussed risks due to age including somnolence, falls, sedation. Call if symptoms worsen or do not improve. Referral to behavior health placed with his consent. He agrees with the plan. Orders: mirtazapine (Remeron) 7.5 MG tablet; Take 1 tablet (7.5 mg) by mouth if needed at bedtime (insomnia). Referral to Behavioral Health; Future Anxiety Orders: Referral to Behavioral Health; Future Future Appointments Date Time Provider Department Center 10/10/2025 9:30 AM Ban Toribio PharmD MEDICINE [facility] documented in this encounter Miscellaneous Notes * Assessment & Plan Note - Josselyn Enrique MD - 12/24/2024 11:00 AM EDT Associated Problem(s): Primary insomnia Causing significant distress and ER visit. Discontinue trazodone due to heart burn. No improvement with melatonin. Trial of Remeron 7.5mg at bedtime prn. Discussed risks due to age including somnolence, falls, sedation. Call if symptoms worsen or do not improve. Referral to behavior health placed with his consent. He agrees with the plan. Orders: mirtazapine (Remeron) 7.5 MG tablet; Take 1 tablet (7.5 mg) by mouth if needed at bedtime (insomnia). Referral to Behavioral Health; Future documented in this encounter Plan of Treatment Upcoming Encounters Date Type Department Care Team (Late st Contact Info) Description 10/10/2025 9:30 AM EDT Medication Management [facility] MEDICINE [address] [place], [place] [phone] Ban Toribio PharmD [address] [place] [address] Scheduled Referrals Name Type Priority Associated Diagnoses Order Schedule Referral to Behavioral Health Outpatient Referral Routine Primary insomnia Anxiety Expected: 12/24/2024 (Approximate), Expires: 06/23/2026 documented as of this encounter Visit Diagnoses Diagnosis Primary insomnia- Primary Persistent disorder of initiating or maintaining sleep Anxiety Anxiety state, unspecified documented in this encounter Additional Health Concerns Assessment Noted Time PHQ-9 Depression Total Score: 0 09/20/19 25 9:19 AM EDT documented as of this encounter Care Teams Sports Media Relationship Specialty Start Date End Date Clayton Lyon MD [address] [place] [address] PCP - General Internal Medicine 11/12/13 Chris Leal MD [address] [place] [phone] Cardiology 07/10/24 [facility] 08/18/21 documented as of this encounter
--- NOTE | ~2024-12-28 | XR_ITS ---
CLINICAL HISTORY: puncture FB? 2 view left forearm Comparison: None provided Findings: No fractures or dislocations. No joint effusion. No significant arthritic change. No radiopaque foreign body. IMPRESSION: 1. No acute fracture or subluxation. This document has been electronically signed by: Ortega Olivares MD on 12/29/2024 00:29:39
[2024-12-28 21:17] VITALS: BP 119/58; PULSE 65; RESP 16; TEMP 36.4; O2SAT 94; BMI 23.8
--- OUTSIDE RECORDS SUMMARY | 2024-12-29 00:41 | XMS_ITS | Encounter Summary ---
Author Organization [employer] Address [address] [place] [address] Care Team Providers Care Water Hauler Name Role Phone Clayton Lyon MD Primary Care Provide r Chris Leal MD Unavailable [phone] Encounter Details Date Type Department Care Team (Late st Contact Info) Description 03/07/2022 [facility] Health Information Management [address] [place] [address] Clayton Lyon MD [address] [place] [address] Social History Tobacco Use Types Packs/Day Years [...] Description 10/10/2025 9:30 AM EDT Medication Management [facility] MEDICINE [address] [place] [address] Ban Troibio PharmD [address] [place] [address] documented as of this encounter Procedures Procedure Name Priority Date/Time Associated Diagnosis Comments PSA, TOTAL Routine 12/05/2022 11:19 AM EDT STREP A NUCLEIC ACID Routine 05/30/2022 11:58 AM EST SARS COV2/INFLUENZA A/B AND RSV RNA QL NAAT Routine 05/30/2022 11:58 AM EST documented in this encounter Results * PSA,Total (12/05/2022 11:19 AM EDT) Prostate Specific Antigen 0.50 <0.05 - 4.0 ng/mL [facility] Comment:PSA methodology: Abb yong Aliemelity i ChemiluminescentMicroparticle Immunoassay (CMIA) 12/05/2022 11:1 9 AM EDT 12/05/2022 11:19 AM EDT [facility] External Provider LAB BLO OD ORDERABLES Final Result Performing Organization Address City/State/[facility] Co de Phone Number [facility] [address] [place] [phone] * SARS-CoV-2 RNA, Influenza A/B, and RSV RNA, Ql NAAT (05/30/2022 11:58 AM EST) Influenza A PCR NEGATIVE Negative [facility] Influenza B PCR NEGATIVE Negative [facility] Resp Syncy Virus RNA Qual PCR NEGATIVE Negative [facility] SARS COV2 PCR NEGATIVE Negative [facility] SARS/Flu/RSV Note See Note [facility] Comment:All test results mus [...] use by authorized laboratories.Testing performed on the [employer] GeneXpert utilizingreal-time RT-PCR.All SARS CoV2 and positive influenza A/B results arereported to [facility]. 05/30/2022 11:5 8 AM EST 05/30/2022 12:03 PM EST [facility] Exter nal Provider LAB MICROBIOLOGY - GENERAL ORDERABLES Final Result Performing Organization Address [facility] de Phone Number [facility] [address] [place] [address] [phone] * Strep A Nucleic Acid (05/30/2022 11:58 AM EST) IDNOW SERIAL# [id number] [facility] Strep A Nucleic Acid Negative Negative [facility] Comment:All test results mus t be correlated with clinical findings.This test has not been evaluated for monitoring treatment ofinfection.Additional follow-up testing using the culture method isrequired if the result is negative and clinical symptomspersist, or in the event of an acute rheumatic feveroutbreak. 05/30/2022 11:5 8 AM EST 05/30/2022 12:03 PM EST [facility] Exter nal Provider LAB MICROBIOLOGY - GENERAL ORDERABLES Final Result Performing Organization Address [facility] de Phone Number [facility] [address] [place] [address] [phone] documented in this encounter Visit Diagnoses Not on filedocumented in this encounter Care Teams Water Hauler Relationship Specialty Start Date End Date Clayton Lyon MD [address] [place] [address] PCP - General Internal Medicine 11/12/13 Chris Leal MD [address] [place] [address] Cardiology 07/10/24 [facility] 08/18/21 documented as of this encounter
--- OUTSIDE RECORDS SUMMARY | 2024-12-29 00:41 | XMS_ITS | Clinical Summary ---
Author Organization [facility] Address [address] [facility] [address] [place] [phone] Phone Care Team Providers Care Pearl Digger Name Role Phone Clayton Chavez MD Primary [...] file Insurance MEDICARE PART A & B [facility] MEDICARE PART A & B [facility] MEDICARE REPLACEMENT MEDICARE PART A & B [facility] MEDICARE REPLACEMENT MEDICARE PART A & B [facility] MEDICARE REPLACEMENT MEDICARE PART A & B Member Subscriber Plan / Payer (Ef fective 2010-Present) Name:Shelton Gonzalez Member ID:[id number] Relation to Subscriber:Self Name:Shelton Gonzalez Subscriber ID:[id number] Payer ID:[id number] Group ID:Not on file Type:Medicare Address: [employer] [address] [place] [id number] [place] [address] MEDICARE REPLACEMENT MEDICARE PART A & B [facility] MEDICARE REPLACEMENT Care Teams Pearl Digger Relationship Specialty Start Date End Date Clayton Chavez MD [address] [place] [phone] [email or web address] PCP - General Internal Medicine 07/29/24 Additional Source Comments The information contained in this document represents components of the legal health record. It is not the complete legal health record.[facility]
--- OUTSIDE RECORDS SUMMARY | 2024-12-29 00:41 | XMS_ITS | Encounter Summary ---
Author Organization [employer] Address [address] [place] [address] Care Team Providers Care Kitchen Runner Name Role Phone Clayton Lyon MD Primary Care Provide r Chris Leal MD Unavailable [phone] Encounter Details Date Type Department Care Team ([facility] st Contact Info) Description 12/26/2024 Refill [facility] MEDICINE [address] [place], [place] [phone] Clayton Lyon MD [address] [place] [address] Fatigue due to excessive exertion, sequela Social History Tobacco Use Types Packs/Day Years [...] Description 10/10/2025 9:30 AM EDT Medication Management [facility] MEDICINE [address] [place] [address] Ban Toribio, PharmD [address] [place] [address] documented as of this encounter Visit Diagnoses Diagnosis Fatigue due to excessive exertion, sequela documented in this encounter Additional Health Concerns Assessment Noted Time PHQ-9 Depression Total Score: 0 09/20/19 25 9:19 AM EDT documented as of this encounter Care Teams Kitchen Runner Relationship Specialty Start Date End Date Clayton Lyon MD [address] [place] [address] PCP - General Internal Medicine 11/12/13 Chris Leal MD [address] [place] [address] Cardiology 07/10/24 [facility][Note 3] 08/18/21 documented as of this encounter
--- OUTSIDE RECORDS SUMMARY | 2024-12-29 00:41 | XMS_ITS | Clinical Summary ---
Author Organization [employer] Address [address] [place] [address] 7t [place] [address] Care Team Providers Care Manager Truck Name Role Phone Clayton Lyon MD Primary Care Provide r Chris Leal MD Unavailable [phone] Allergies Active Allergy Reactions Criticality Noted Date Comments Alprazolam 03/28/2022 Dicyclomine 12/19/2017 Gabapentin 03/28/2022 Lisinopril 05/17/2016 Oxycodone 03/28/2022 Medications * This document contains information received from the source organization and may not represent a complete record from that organization. timolol (Timoptic) 0.5 % ophthalmic solution PLACE 1 DROP IN THE RIGHT EYE EVERY MORNING 12/23/19 22 Active pantoprazole (ProtoNix) 40 MG EC tablet Take 40 mg by mouth 2 times daily. 03/01/20 22 Active Blood Glucose Monitoring Suppl (FreeStyle [place] Lite) w/Device kit USE FOR TEST BLOOD [...] mouth Once per day. 07/12/19 25 Active triamcinolone (Kenalog) 0.1 % creamIndicatio [...] mouth Once per day. 12/09/19 25 Active fluticasone (Flonase) 50 MCG/ACT nasal spray INSTILL 2 SPRAYS IN EACH NOSTRIL ONCE DAILY 16 g 3 12/21/19 25 Active mirtazapine (Remeron) 7.5 MG tabletIndicati ons:Primary insomnia Take 1 tablet (7.5 mg) by mouth if needed at bedtime (insomnia). 30 tablet 2 12/25/19 25 Active Multiple Vitamin (Multivitamin) tabletIndicati ons:Fatigue due to excessive exertion, sequela TAKE 1 TABLET BY MOUTH EVERY MORNING 90 tablet 1 12/27/19 25 Active Ventolin HFA 108 (90 Base) MCG/ACT inhalerIndicat ions:Restricti ve lung disease INHALE 2 PUFFS BY MOUTH EVERY 4 HOURS NEEDED FOR WHEEZING OR SHORTNESS OF BREATH 18 g 1 04/16/19 25 025 Discontinued digoxin (Lanoxin) 125 MCG tablet Take 1 tablet by mouth Once per day. 06/20/19 025 Discontinued(Th erapy completed) metoprolol tartrate (Lopressor) 50 MG tablet Take 50 mg by mouth 1 (one) time each day. 07/12/19 025 Discontinued(Th erapy completed) fluticasone (Flonase) 50 MCG/ACT nasal spray Administer 2 sprays into each nostril Once per day. Shake gently. Before first use, prime pump. After use, clean tip and replace cap. 16 g 3 08/16/19 25 025 Discontinued Multiple Vitamin (Multivitamin) tabletIndicati ons:Fatigue due to excessive exertion, sequela TAKE 1 TABLET BY MOUTH EVERY MORNING 90 tablet 09/07/19 25 025 Discontinued traZODone (Desyrel) 100 MG tabletIndicati ons:Primary insomnia Take 1 tablet (100 mg) by mouth at bedtime. 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 EKG and Trop negative on [...] A.Fib with RVR. Under the care of Lumber Buyer Dr. Leal who has recommended Cardioversion, done 08/18/2024, unfortunately went back to Afib. Seen by Cardiology 09/09/2024 who recommended ablation tat [facility] Pt is now S/p Ablation 10/24/2024 Last seen by Cardiology 12/11/2024 Assessment & Plan (09/19/2024 9:27 AM EDT): Pt here for a follow up, recently hospitalized and diagnosed with A.Fib with RVR. Under the care of Lumber Buyer Dr. Leal who has recommended Cardioversion, done 08/18/2024, unfortunately went back to Afib. Seen by Cardiology 09/09/2024 who now recommended ablation to be scheduled at [facility] Assessment & Plan (08/13/2024 9:10 AM EDT): Pt recently hospitalized and diagnosed with A.Fib with RVR. Under the care of Lumber Buyer Dr. Leal who has recommended Cardioversion Diverticulosis [...] (11/01/2022 10:24 AM EDT): Pt seen by Leach Tank Tender Dr Garcia He reviewed his laboratory results That included: CRP, RF, ESR and DAVIE were all Normal His assessment was that patient had fibromyalgia Right hand pain 11/01/2022 Assessment & Plan (02/14/2023 10:24 AM EST): Patient with painful right index finger, difficulty bending it. Seen at [facility] received steroid injections with good results 11/24/2022 Assessment & Plan (11/01/2022 10:25 AM EDT): Patient with painful right index finger, difficulty bending it. Seen in the past at [facility] received steroid injections with good results Pt would like to go back Grade II hemorrhoids 11/01/2022 Assessment & Plan (02/14/2023 10:24 AM EST): Evaluated by Dr Carney 10/2022 opted for conservative measures Assessment & Plan (11/01/2022 10:32 AM EDT): Patient with c/o BRBPR Exam indicative of hemorrhoids Plan: Increase fluid, fiber in diet Proctosl H Referral to Dr Carney [facility] 08/02/2022 Assessment & Plan (12/17/2024 9:44 [...] EST): Pt seen in the ER at [facility] yesterday with cough, diagnosed with bronchitis. Treated [...] shoulder pain. Seen in the past at [facility], last seen 02/27/2019 received a steroid [...] PT. Primary insomnia 03/29/2022 Assessment & Plan (12/24/2024 11:47 AM EDT): Causing significant distress and ER visit. Discontinue [...] bedtime (insomnia). Referral to Behavioral Health; Future Assessment & Plan (12/17/2024 9:54 AM EDT): [...] Clinical correlation recommended. Pt was seen by Drier Transfer Car Operator 08/2018 who thought this was due [...] Clinical correlation recommended. Pt was seen by [employer] Transfer Car Operator 08/2018 who thought this was due [...] Dr Monroy 5 yr f/u C[facility]brovascular accident ([facility]) 07/10/2013 Chronic headache disorder 03/22/2013 Assessment & [...] of his LS spine done showed: 1. Onuy-sb-kwirlzqh loss of disc height at L4-L5 with a right paracentral disc extrusion resulting in mass effect upon the right L5 nerve root. Mild central canal stenosis. Broad-based left lateral disc protrusion and endplate spurring abutting the exiting left L4 nerve root. Zfol-ff-edqajlli bilateral foraminal narrowing. 2. Mild spondylitic changes [...] flu negative No further intervention necessary Encounters * This document contains information received from the source organization and may not represent a complete record from that organization. Date Type Department Care Team Description 12/26/2024 Telephone [facility] [address] [place] [phone] Clayton Lyon MD Medication Question 12/26/2024 Refill [facility] [address] [place] [phone] Clayton Lyon MD Fatigue due to excessive exertion, sequela 12/26/2024 Refill [facility] [address] [place] [address] Julia Beckwith MD Fatigue due to excessive exertion, sequela 12/24/2024 11:00 AM EDT Office Visit [facility] [address] [place] [phone] Josselyn Enrique MD Primary insomnia (Primary Dx); Anxiety 12/24/2024 Travel 12/24/2024 Telephone [facility] [address] [place] [phone] Clayton Lyon MD ER Follow-up 12/23/2024 Orders Only GENERIC EXTERNAL DATA DEPARTMENT Provider, Generic External Data 12/20/2024 Refill [facility] [address] [place] [phone] Jennie Zhu DO 12/17/2024 10:00 AM EDT Office Visit [facility] [address] [place] [phone] Clayton Lyon MD 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) (CMS/HCC) (Primary Dx); Paroxysmal atrial fibrillation (CMS/HCC); Chronic systolic heart failure (CMS/HCC); Essential hypertension; Hypercholesterolemia; Preventative health care; Primary insomnia; Encounter for immunization 12/17/2024 Travel 12/16/2024 Telephone [facility] [address] [facility] [place] [address] Clayton Lyon MD chart prep 12/11/2024 Telephone [facility] [address] [facility] [place] [address] Clayton Lyon MD Nurse Triage 12/07/2024 Refill [facility] [address] [facility] [place] [address] Clayton Lyon MD Restrictive lung disease 11/27/2024 Telephone [facility] [address] [facility] [place] [address] Clayton Lyon MD Durable Medical Equipment 11/21/2024 Telephone [facility] [address] [facility] [place] [address] Clayton Lyon MD Call Back Request 10/19/2024 Orders Only GENERIC EXTERNAL DATA DEPARTMENT Provider, Generic External Data 10/11/2024 9:30 AM EDT Telemedicine [facility] [address] [facility] [place] [address] Ban Toribio, Lam Type 2 diabetes mellitus [...] (150 lb) 12/24/2024 11:25 AM EDT Height 170.2 cm (5' 7 ) 09/19/2024 9:17 AM EDT Body Mass Index 23.49 09/19/2024 9:17 AM EDT Plan of Treatment Upcoming Encounters Date Type Department Care Team (Late st Contact Info) Description 10/10/2025 9:30 AM EDT Medication Management [facility] [address] [place] [address] Ban Toribio, PharmD [address] [place] [address] Health Maintenance Due Date Last Done Comments [...] Screening 09/19/2025 09/19/2024, 09/20/19 25 Tobacco Screening 12/24/2025 12/24/2024 DTaP/Tdap/Td Vaccines (3 - Td or Tdap) [...] Name Priority Date/Time Associated Diagnosis Comments XR FOREARM 2 VIEWS LEFT Routine 12/29/2024 12:29 AM EDT URINALYSIS, COMPLETE, WITH REFLEX TO CULTURE Routine 12/23/2024 10:53 AM EDT MAGNESIUM Routine 12/23/2024 9:46 AM EDT COMPREHENSIVE METABOLIC PANEL Routine 12/23/2024 9:46 AM EDT CBC WITH AUTO DIFFERENTIAL Routine 12/23/2024 9:46 AM EDT POCT GLUCOSE Routine 12/17/2024 10:02 AM EDT 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) (CMS/HCC) POCT GLYCOSYLATED HEMOGLOBIN (HGB A1C) Routine 12/17/2024 10:00 AM EDT 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) (CMS/HCC) PROTHROMBIN TIME-INR Routine 10/19/2024 9:56 AM EDT [...] Relevant to Health Maintenance Results * XR Forearm 2 Views Left (12/29/2024 12:29 AM EDT) Anatomical Region Laterality Modality Upper Extremities, Forearm Left Radio graphic Imaging 12/29/2024 12:2 9 AM EDT Narrative 12/29/2024 12:31 AM EDT [address] [address] XRay Report Signed Patient: Shelton Davis MR#: [id number] : 1945 Acct:[id number] Age/Sex: 79 / M ADM Date: 12/28/24 Loc: .ED Attending Dr: Ordering Physician: Hillary Bailey Date of Service: 12/29/24 Procedure(s): XR forearm LT 2V Accession Number(s): [id number] cc: Clayton Chavez MD; Hillary Bailey Reason for Exam: puncture/FB? CLINICAL HISTORY: puncture FB? 2 view left forearm Comparison: None provided Findings: No fractures or dislocations. No joint effusion. No significant arthritic change. No radiopaque foreign body. IMPRESSION: 1. No acute fracture or subluxation. This document has been electronically signed by: Ortega Olivares MD on 12/29/2024 00:29:39 Dictated By: Ortega Olivares MD Signed By: <Electronically signed by Ortega Olivares MD in OV> 12/29/24 003 DD/ TD/TT: 12/29/2428 Tree Planter: Procedure Note Donotuseinterpreter, Image - 12/29/[address] [address] XRay Report Signed Patient: Shelton DavisMR#: [id number] : 1945cct:[id number] Age/Sex: 79 / MADM Date: 12/28/24 Loc: .ED Attending Dr: Ordering Physician: Hillary Bailey Date of Service: 12/29/24 Procedure(s): XR forearm LT 2V Accession Number(s): [id number] cc: Clayton Chavez MD; Hillary Bailey Reason for Exam: puncture/FB? CLINICAL HISTORY: puncture FB? 2 view left forearm Comparison: None provided Findings: No fractures or dislocations. No joint effusion. No significant arthritic change. No radiopaque foreign body. IMPRESSION: 1. No acute fracture or subluxation. This document has been electronically signed by: Ortega Olivares MD on 12/29/2024 00:29:39 Dictated By: Ortega Olivares MD Signed By: <Electronically signed by Ortega Olivares MD in OV> 12/29/24 0031 DD/ TD/TT: 12/29/2428 Tree Planter: [facility] External Provider IMG XR PROCEDURES Edited Result - Final * (ABNORMAL) Urinalysis, Complete, with Reflex to Culture (12/23/2024 10:53 AM EDT) Color Urine Yellow [facility] Appearance Urine Clear [facility] PH 6.5 5.0 - 9.0 [facility] Glucose Urine UA >=1000(A) Negative mg/dL [facility] Urine Blood Negative Negative [facility] Specific [place] - Urine 1.015 1.005 - 1.025 [facility] Urine Protein Negative Neg-Trace mg/dL [facility] Urine Ketones Negative Negative mg/dL [facility] Nitrite Urine Negative Negative [facility] Leukocyte Esterase Urine Negative Negative [facility] RBC Urine 0-2 0 - 2 /HPF [facility] Urine WBC 0-5 0 - 5 /HPF [facility] Urine Squamous Epithelial Cell 0-2 0 - 2 /HPF [facility] Urine Bacteria None Seen None Seen [facility] Hyaline Casts, Urine 0-2 0 - 2 /LPF [facility] 12/23/2024 10:5 3 AM EDT 12/23/2024 11:15 AM EDT Narrative [facility] - 12/23/2024 11:24 AM EDT 1052Urine, Clean Catch Generic External Data Provider LAB URINE ORDERAB LES Final Result [facility] [address] [place] [address] [phone] * CBC auto differential (12/23/2024 9:46 [...] ORDERAB LES Final Result Performing Organization Address City/[facility]/ZIP Co de Phone Number [facility] [address] [place] [address] [phone] * Magnesium (12/23/2024 9:46 AM EDT) Magnesium 2.3 1.6 - 2.6 mg/dL [facility] 12/23/2024 9:46 AM EDT 12/23/2024 9:49 AM EDT Generic External Data Provider LAB BLOOD ORDERAB LES Final Result Performing Organization Address [facility] de Phone Number [facility] [address] [place] [address] [phone] * (ABNORMAL) Comprehensive Metabolic Panel (12/23/2024 [...] Kidney Disea se: Estimated GFR < 60 mL/min/1.63n0Yvrfxj Kidney Disease: Estimated GFR < 15 mL/min/1.73m2 [...] ORDERAB LES Final Result Performing Organization Address City/State/[facility] Co de Phone Number [facility] [address] [place] [phone] * POCT glucose manually resulted (12/17/2024 10:02 AM EDT) Glucose Blood, POC 80 60 - 200 mg/dL QC Media Lot # [id number] Lot# Expiration Date [id number] Blood Capillary blood specimen / Unknown 12/17/2024 10:02 AM EDT Clayton Millard MD POINT OF CARE TEST EN TER/EDIT ORDERABLES Final Result * (ABNORMAL) POCT glycosylated hemoglobin (Hgb A1c) (12/17/2024 10:00 AM EDT) Hemoglobin A1C 6.3(A) 4.0 - 5.7 % QC Media Lot # [id number] Lot# Expiration Date ,[id number] Blood Capillary blood specimen / Unknown 12/17/2024 [...] 9:56 AM EDT 10/19/2024 9:56 AM EDT Generic External Data Provider LAB BLOOD ORDERAB LES Final Result [facility] [address] [place] [address] [phone] * (ABNORMAL) Lipid Panel, Standard (09/09/2024 9:27 AM EDT) Triglycerides 186(H) <150 mg/dL [facility] Comment:Desirable Triglyceri de: less than 150 [...] 190 mg/dL HDL Cholesterol 32(L) >40 mg/dL [facility] Comment:Desirable HDL: great er than 40 mg/dL Note: This HDL assay may give artificially low results in patients with liver disease. Blood Venous blood specimen / Unknown 09/09/2024 9:27 AM EDT 09/09/2024 11:20 AM EDT Clayton Millard MD LAB BLOOD ORDERABLES Final Result Performing Organization Address [facility] de Phone Number [facility] [address] [place] [phone] * Albumin, Random Urine W/Creatinine (12/14/2023 9:20 AM EDT) Creatinine, Urine 167.95 mg/dL [facility] Microalbumin Urine 8.0 mg/L [facility] Microalbum Creatinine Ratio Ur 4.7 <30 ug/mg cr [facility] Comment:Albumin/Creatinine R atio Reference Ranges: Normal: < 30 ug/mg creatinine Microalbuminuria: 30 - 300 ug/mg creatinineClinical Albuminuria: > 300 ug/mg creatinine Urine (Urine, Random) 12/14/2023 9:20 AM EDT 12/14/2023 11:13 AM EDT Clayton Millard MD LAB URINE ORDERABLES Final Result Performing Organization Address [facility] Co de Phone Number [facility] [address] [place] [address] [phone] * Hepatitis C Antibody with Reflex to HCV, RNA, Quantitative, Real-Time PCR (04/04/2022 10:44 AM EST) Hepatitis C Antibody NON-REACT FRANCHESCA NON-REACT FRANCHESCA [facility] [place] Macrotherapyt Index <0.02 <1.00 [facility] [place] [facility] Comment: HCV antibody was non-reactive. There is no laboratory evidence of HCV infection. In most cases, no further action is required. However, if recent HCV exposure is suspected, a test for HCV RNA (test code 40101) is suggested. For additional information please refer to http://education.BetterLesson/faq/NYX04j9 (This link is being provided for informational/ educational purposes only.) Blood Venous blood specimen / Unknown 04/04/2022 10:44 AM EST 04/04/2022 10:44 AM EST Narrative [facility] - 04/05/2022 6:45 PM EST FASTING:YES FASTING: YES Clayton Millard MD LAB BLOOD ORDERABLES Final Result [facility] [address] [facility], [place] [address] [facility] [address] [facility], ([address]) [place] [address] from Last 3 Months or Most Recently Relevant to Health Maintenance Insurance [facility] [employer] (HMO [place]) [place] [id number] [place] [id number] Care Teams Manager Truck Relationship Specialty Start Date End Date Clayton Lyon MD [address] [place] [address] PCP - General Internal Medicine 11/12/13 Chris Leal MD [address] [place] [address] Cardiology 07/10/24 [facility] 08/18/21
--- OUTSIDE RECORDS SUMMARY | 2024-12-29 00:41 | XMS_ITS | Patient Health Record ---
Author Organization [facility] Address [address] [place] [address] Care Team Providers Care Lead Applier Name Role Phone Dawson Millard MD, Clayton Primary Care Provide Glenn Mary Jr Unavailable [phone] Allergies Allergen (clinical drug ingredient) Drug/Non Drug Allergy documented on EMR Reaction Allergy Type Onset Date Status oxycodone Oxycodone Unknown Drug Allergy Active lisinopril Lisinopril Unknown Drug Allergy Activ e gabapentin Gabapentin Unknown Drug Allergy Activ e acetaminophen / oxycodone Percocet Unknown Drug Allergy Active zanac (uncoded) Unknown Allergy Acti ve Reason For Referral No Information Medications Medication [...] Problem Status W/U Status Risk Notes Problem 408535615 Colon cancer screening (Z12.11) Active confirmed Problem 57702411 Epigastric pain (R10.13) Active confirmed Problem Gastro-esophage al reflux disease without esophagitis (773283563) Gastro-esophageal reflux disease without esophagitis (K21.9) Active confirmed Problem 196638818 long-term (curre nt) use of anticoagulants (Z79.01) Active confirmed Problem 730165244 Personal history of colonic polyps (Z86.010) Active confirmed Problem 354661402 Irritable bowel syndrome with diarrhea (K58.0) Active confirmed Problem 390612101 Generalized abdominal pain (R10.84) Active confirmed Problem 915501128 Diverticulitis (K57.92) Active confirmed Problem 055529604 Gastroesophageal reflux disease without esophagitis (K21.9) Active confirmed Problem History of polyp of colon (155779573) History of colon polyps (Z86.010) Active confirmed Problem 452869495 Gastroesophageal reflux disease with esophagitis without hemorrhage (K21.00) Active confirmed Vital Signs Temperature 97.5 degrees Fahrenheit 07/08/2024 Blood pressure diastolic 01 mm Hg 07/08/2024 Height 67 in 07/08/2024 Blood pressure systolic 001 mm Hg 07/08/2024 Weight 160 lbs 07/08/2024 BMI 25.06 kg/m2 07/08/2024 Encounters Encounter Location Date Provider Diagnosis [facility] [address] [place] [phone] 07/08/2024 Glenn Monroy Jr Diverticulitis K57.92 and long-term (current) use of anticoagulants Z79.01 [facility] [address] [place] [address] 05/30/2024 Glenn Monroy Jr [facility] [address] [place] [address] 07/08/2024 Glenn Monroy Jr [facility] [address] [place] [address] 08/15/2024 Glenn Monroy Jr Assessments Encounter Date Diagnosis (ICD Code) Assessment Notes Treatment Notes Treatment Clinical Notes Section Notes 07/08/2024 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
--- OUTSIDE RECORDS SUMMARY | 2024-12-29 00:41 | XMS_ITS | Encounter Summary ---
Author Organization [employer] Address [address] [facility] [address] [place] [address] Care Team Providers Care Editor Managing Director Name Role Phone Clayton Lyon MD Primary Care Provide r Chris Leal MD Unavailable [phone] Encounter Details Date Type Department Care Team (Latest Contact Info) Description 12/24/2024 Travel Social History Tobacco Use Types Packs/Day Years [...] Description 10/10/2025 9:30 AM EDT Medication Management [facility] [address] [place] [address] Ban Toribio PharmD [address] [place] [address] documented as of this encounter Visit Diagnoses Not on filedocumented in this encounter Additional Health Concerns Assessment Noted Time PHQ-9 Depression Total Score: 0 09/20/19 25 9:19 AM EDT documented as of this encounter Care Teams Editor Managing Director Relationship Specialty Start Date End Date Clayton Lyon MD [address] [place] [address] PCP - General Internal Medicine 11/12/13 Chris Leal MD [address] [place] [address] Cardiology 07/10/24 [facility] 08/18/21 documented as of this encounter
--- OUTSIDE RECORDS SUMMARY | 2024-12-29 00:41 | XMS_ITS | Encounter Summary ---
Author Organization [employer] Address [address] [facility] [address] [place] [address] Care Team Providers Care Element Setter Name Role Phone Clayton Lyon MD Primary Care Provide r Chris Leal MD Unavailable [phone] Reason for Visit * Reason Onset Date Comments ER Follow-up 08/31/2023 Encounter Details Date Type Department Care Team ([facility] Contact Info) Description 08/31/2023 Telephone [facility] [address] [place], [place] [phone] Clayton Lyon MD [address] [place], [place] [phone] ER Follow-up Social History Tobacco Use Types [...] ED visit on : Date: 09/18/23 Hospital: [facility] Seen for: fall Patient advised will forward to team nurse for follow up documented in this encounter Plan of Treatment Upcoming Encounters Date Type Department Care Team (Late st Contact Info) Description 10/10/2025 9:30 AM EDT Medication Management [facility] [address] [place] [address] Ban Toribio, PharmD [address] [place] [address] documented as of this encounter Visit Diagnoses Not on filedocumented in this encounter Care Teams Element Setter Relationship Specialty Start Date End Date Clayton Lyon MD [address] [place] [address] PCP - General Internal Medicine 11/12/13 Chris Leal MD [address] [place] [address] Cardiology 07/10/24 [facility] 08/18/21 documented as of this encounter
--- OUTSIDE RECORDS SUMMARY | 2024-12-29 00:41 | XMS_ITS | Encounter Summary ---
Author Organization [employer] Address [address] [place] [address] 7 [place] [address] Care Team Providers Care Cafeteria Table Attendant Name Role Phone Clayton Lyon MD Primary Care Provide r Chris Leal MD Unavailable [phone] Reason for Visit * Reason Onset Date Comments ER Follow-up 12/24/2024 Encounter Details Date Type Department Care Team ([facility] Contact Info) Description 12/24/2024 Telephone [facility] MEDICINE [address] [place], [place] [phone] Clayton Lyon MD [address] [place], [place] [phone] ER Follow-up Social History Tobacco Use Types [...] encounter Miscellaneous Notes * Telephone Encounter - Bozena Bryant RN - 12/24/2024 9:34 AM EDT Date: 12/23 Hospital: [facility] Seen for: Sleeping difficulties Symptomatic Yes Pt was melatonin but medication has several side and still has help the pt to sleep. Called pt. Via S spanish medical interpreter [phone] Cris. Pt. States that he has been having difficulty sleeping x 9-10 days. Pt. Was put on Trazodone 100mg at bedtime but, that upset his stomach and gave him Heartburn. Pt. Would like to be seen but, does not have transportation. Uber ride created for pt. To be able to come to [facility] walk in for assessment of what bedtime sleep aid he can use with his multiple Diagnoses. Protocol Used: Insomnia (Adult) Protocol-Based Disposition: See in Office or Video Visit within 3 Days- Uber ride activated to pickup pt. At 1030am to be seen in [facility] walk in this am. Video visit offer not recorded Positive Triage Questions: * Patient wants to be seen * Insomnia lasts > 2 weeks and no improvement after using Care Advice * All higher-acuity triage questions were negative Care Advice Discussed: * Tips for Good Sleep * Tips for Good Sleep - Your Bedroom * Tips for Good Sleep - When You Can't Fall Asleep * Tips for Good Sleep - When Worrying Keeps You Awake * Tips for Good Sleep - What To Avoid * How Much Sleep Is Enough? * Telephone Encounter - Paulina Najera - 12/24/2024 9:16 AM EDT Patient calling to report ED visit on : Date: 12/23 Hospital: [facility] Seen for: Sleeping difficulties Symptomatic Yes Pt was melatonin but medication has several side and still has help the pt to sleep. Contact pt at [phone] Need spanish medical interpreter documented in this encounter Plan of Treatment Upcoming Encounters Date Type Department Care Team (Late st Contact Info) Description 10/10/2025 9:30 AM EDT Medication Management [facility] MEDICINE [address] [place] [address] Ban Toribio, PharmD [address] [place] [address] documented as of this encounter Visit Diagnoses Not on filedocumented in this encounter Additional Health Concerns Assessment Noted Time PHQ-9 Depression Total Score: 0 09/20/19 25 9:19 AM EDT documented as of this encounter Care Teams Cafeteria Table Attendant Relationship Specialty Start Date End Date Clayton Lyon MD [address] [place] [address] PCP - General Internal Medicine 11/12/13 Chris Leal MD [address] [place] [address] Cardiology 07/10/24 [facility] 5/25/22 documented as of this encounter
--- OUTSIDE RECORDS SUMMARY | 2024-12-29 00:41 | XMS_ITS | Encounter Summary ---
Author Organization [facility] Address [address] [facility] [address] [place] [phone] Phone Care Team Providers Care Manager Background Name Role Phone Clayton Cahvez MD Primary Care Provide r Encounter Details Date Type Department Care Team (Late st Contact Info) Description 07/29/2024 Procedure Pass [facility] [address] [place] [address] Social History Tobacco Use Types Packs/Day Years [...] on filedocumented in this encounter Care Teams Manager Background Relationship Specialty Start Date End Date Clayton Chavez MD [address] [place] [id number] [email or web address] PCP - General Internal Medicine 07/29/24 documented as of this encounter Additional Source Comments The information contained in this document represents components of the legal health record. It is not the complete legal health record.[facility]
--- OUTSIDE RECORDS SUMMARY | 2024-12-29 00:41 | XMS_ITS | Encounter Summary ---
Author Organization [employer] Address [address] [facility] 7t [place] [address] Care Team Providers Care Nailer Machine Name Role Phone Clayton Lyon MD Primary Care Provide r Chris Leal MD Unavailable [phone] Reason for Visit * Reason Comments Med Refill Encounter Details Date Type Department Care Team ([facility] st Contact Info) Description 12/26/2024 Refill [facility] MED & PEDS [address] [place], [place] [phone] Julia Beckwith MD [address] [place] [address] Fatigue due to excessive exertion, sequela Social [...] Description 10/10/2025 9:30 AM EDT Medication Management [facility] MEDICINE [address] [place] [address] Ban Toribio, PharmD [address] [place] [address] documented as of this encounter Visit Diagnoses Diagnosis Fatigue due to excessive exertion, sequela documented in this encounter Additional Health Concerns Assessment Noted Time PHQ-9 Depression Total Score: 0 09/20/19 25 9:19 AM EDT documented as of this encounter Care Teams Nailer Machine Relationship Specialty Start Date End Date Clayton Lyon MD [address] [place] [address] PCP - General Internal Medicine 11/12/13 Chris Leal MD [address] [place] [address] Cardiology 07/10/24 [facility] 08/18/21 documented as of this encounter
--- OUTSIDE RECORDS SUMMARY | 2024-12-29 00:41 | XMS_ITS | Encounter Summary ---
Author Organization [employer] Address [address] [place] [address] 7 [place] [address] Care Team Providers Care Clay Temperer Name Role Phone Clayton Lyon MD Primary Care Provide r Chris Leal MD Unavailable [phone] Reason for Visit * Reason Onset Date Comments Medication Question 12/26/2024 Encounter Details Date Type Department Care Team ([facility] Contact Info) Description 12/26/2024 Telephone [facility] MEDICINE [address] [place], [place] [phone] Clayton Lyon MD [address] [place], [place] [phone] Medication Question Social History Tobacco Use Types Packs/Day Years [...] encounter Miscellaneous Notes * Telephone Encounter - Lisa Cheney RN - 12/27/2024 11:12 AM EDT TC placed to the [facility] pharmacy who confirmed that the pt insurance will pay for a new All [employer] Home Lite Blood Glucose Monitoring Kit. Will pend the mediation and route to PCP for review. * Telephone Encounter - Sonu Pittman - 12/26/2024 4:48 PM EDT Tc from pt requesting a call back regarding scripts for blood glucose monitor. Please contact pt at [phone]. (Kiswahili Speaker) documented in this encounter Plan of Treatment Upcoming Encounters Date Type Department Care Team (Late st Contact Info) Description 10/10/2025 9:30 AM EDT Medication Management [facility] MEDICINE [address] [place] [address] Ban Toribio, PharmD [address] [place] [address] documented as of this encounter Visit Diagnoses Not on filedocumented in this encounter Additional Health Concerns Assessment Noted Time PHQ-9 Depression Total Score: 0 09/20/19 25 9:19 AM EDT documented as of this encounter Care Teams Clay Temperer Relationship Specialty Start Date End Date Clayton Lyon MD [address] [place] [address] PCP - General Internal Medicine 11/12/13 Chris Leal MD [address] [place] [address] Cardiology 07/10/24 [facility] 08/18/21 documented as of this encounter
--- OUTSIDE RECORDS SUMMARY | 2024-12-29 00:42 | XMS_ITS | Encounter Summary ---
Author Organization [employer] Address [address] [place] [address] 7 [place] [address] Care Team Providers Care Real Estate Analyst Name Role Phone Clayton Lyon MD Primary Care Provide r Chris Leal MD Unavailable [phone] Encounter Details Date Type Department Care Team (Latest Contact Info) Description 10/16/2020 Abstract [facility] Dental, Provider, DDS Social History [...] 10/10/2025 9:30 AM EDT Medication Management [facility] MEDICINE [address] [place] [address] Ban Toribio, PharmD [address] [place] [address] documented as of this encounter Visit Diagnoses Not on filedocumented in this encounter Care Teams Real Estate Analyst Relationship Specialty Start Date End Date Clayton Lyon MD [address] [place] [address] PCP - General Internal Medicine 11/12/13 Chris Leal MD [address] [place] [address] Cardiology 07/10/24 [facility] 08/18/21 documented as of this encounter
--- OUTSIDE RECORDS SUMMARY | 2024-12-29 00:42 | XMS_ITS | Clinical Summary ---
Author Organization [employer] [facility] Address [address] [place] [address] Care Team Providers Care Asphalt Roller Person Name Role Phone Clayton Chavez MD Primary [...] age to complete this topic Care Teams Asphalt Roller Person Relationship Specialty Start Date End Date Clayton Chavez MD [address] [place] [address] [place] [address] PCP - General Internal Medicine 06/26/14
--- OUTSIDE RECORDS SUMMARY | 2024-12-29 00:42 | XMS_ITS | Encounter Summary ---
Author Organization [employer] Address [address] [place] [address] 7 [place] [address] Care Team Providers Care Imitation Marble Mechanic Name Role Phone Clayton Lyon MD Primary Care Provide r Chris Leal MD Unavailable [phone] Reason for Visit * Reason Onset Date Comments Hospital Follow-up 06/20/2024 Encounter Details Date Type Department Care Team ([facility] Contact Info) Description 06/20/2024 Telephone [facility] MEDICINE [address] [place], [place] [phone] Clayton Lyon MD [address] [place], [place] [phone] Hospital Follow-up Social History Tobacco Use Types [...] EDT Tc from pt returning phone call. [phone] * Telephone Encounter - Jade Zaidi - 06/20/2024 9:42 AM EDT Tc from pt requesting a F appt. Hospital: [facility] Date of admission: 06/15/2024 Discharge date: 06/19/2024 Diagnosed: Cardiomyopathy heart working 20 % severe heart failure Atrial fibrillation with RVR Pneumonia Diverticulitis *Send message to [place] [facility] Care Coordinators documented in this encounter Plan of Treatment Upcoming Encounters Date Type Department Care Team (Late st Contact Info) Description 10/10/2025 9:30 AM EDT Medication Management [facility] MEDICINE [address] [place], [place] [phone] Ban Toribio, PharmD [address] [place], [place] [phone] documented as of this encounter Visit Diagnoses Not on filedocumented in this encounter Additional Health Concerns Assessment Noted Time PHQ-9 Depression Total Score: 0 12/12/19 24 10:28 AM EDT documented as of this encounter Care Teams Imitation Marble Mechanic Relationship Specialty Start Date End Date Clayton Lyon MD [address] [place] [address] PCP - General Internal Medicine 11/12/13 Chris Leal MD [address] [place] [address] Cardiology 07/10/24 [facility] 08/18/21 documented as of this encounter
--- NOTE | 2024-12-29 00:45 | ED.GENADULT ---
HPI - General Adult General Chief complaint: Wound/Laceration Stated complaint: left wrist injury Time Seen by Provider: 12/29/24 00:03 Source: patient Limitations: language barrier History of Present Illness ED Provider: Hillary Bailey PA-C HPI narrative: 79-year-old male presents with laceration to left forearm. Patient states he was in the kitchen using a knife, the knife slipped, stabbing himself in the left forearm. Tetanus up-to-date. Related Data Home Medications ?Medication ?Instructions ?Recorded ?Confirmed albuterol sulfate 2.5 mg/3 mL 2.5 mg inhalation QID PRN Wheezing 06/11/20 07/11/24 (0.083 %) solution for nebulization atorvastatin 80 mg tablet 80 mg PO DAILY 06/11/20 07/11/24 multivitamin 1 tab PO DAILY 06/11/20 07/11/24 albuterol sulfate 90 mcg/actuation 2 puff inhalation Q6H PRN Wheezing 11/13/20 07/11/24 aerosol inhaler (Ventolin HFA) blood sugar diagnostic (FreeStyle #10 ea 06/15/21 12/20/22 Lite Strips) lancets 33 gauge (TRUEplus Lancets) #100 ea 06/15/21 12/20/22 pantoprazole 40 mg tablet,delayed 40 mg PO DAILY@0630 06/15/24 07/11/24 release sumatriptan succinate 50 mg tablet 50 mg PO Q2H PRN Migraine Headache 06/15/24 07/11/24 empagliflozin 10 mg tablet 10 mg PO DAILY 07/11/24 07/11/24 (Jardiance) metoprolol tartrate 25 mg tablet 25 mg PO BEDTIME 07/11/24 07/11/24 metoprolol tartrate 50 mg tablet 50 mg PO DAILY@0800 07/11/24 07/11/24 vericiguat 2.5 mg tablet (Verquvo) 2.5 mg PO DAILY 07/11/24 07/11/24 Previous Rx's ?Medication ?Instructions ?Recorded apixaban 5 mg tablet (Eliquis) 5 mg PO BID #180 tabs 06/19/24 digoxin 125 mcg (0.125 mg) tablet 0.125 mg PO DAILY #90 tabs 06/19/24 amitriptyline 25 mg tablet 25 mg PO BEDTIME #90 tabs 08/11/25 melatonin 5 mg tablet 5 mg PO BEDTIME PRN sleep #30 tabs 12/23/24 Allergies Allergy/AdvReac Type Severity Reaction Status Date / Time lisinopril (LISINOPRIL) Allergy Intermediate COUGH Verified 12/28/24 21:25 oxycodone (From PERCOCET) Allergy Intermediate VOMITING Verified 12/28/24 21:25 alprazolam (From XANAX) AdvReac Intermediate VOMITING Verified 12/28/24 21:25 gabapentin AdvReac Abdominal Verified 12/28/24 21:25 Pain Review of Systems Review of Systems: Yes all other systems are reviewed and are negative Constitutional: Constitutional: Denies fatigue and Denies fever(s) Musculoskeletal: Musculoskeletal: Denies arthralgias and Denies joint swelling Integumentary/Breasts: Skin/Breast: Reports wounds Endocrine: Endocrine: Denies fatigue PMFSH Past Medical History Attestation statement: The following information was validated with the patient. Medical History Weak urinary stream Erectile dysfunction Bleeding hemorrhoids Diabetes mellitus Arteriosclerosis Cancer Pulmonary nodule Non-ischemic cardiomyopathy CVA (cerebral vascular accident) Arthritis Asthma GERD (gastroesophageal reflux disease) Elevated cholesterol Diastolic dysfunction Surgical History Hx of transurethral resection of prostate History of esophagogastroduodenoscopy (EGD) H/O colonoscopy Hx of cataract extraction History of ankle surgery History of surgical removal of skin lesion History of hemorrhoidectomy History of appendectomy Family History Family History Father Prostate cancer Mother Parkinson disease Social History Social History Household Members: Children and Other Household Members Other:: two grandchild Housing: Apartment Do you presently have visiting nurse or other home services: Yes Alcohol intake: former Patient Tobacco Use Status: Former Tobacco user Smoked in Last 30 Days: No Second Hand Smoke Exposure: No Use of substances other than those prescribed or required for medical reasons: No Advance Directives: No Advance Directives Information Provided: Yes Do you have a plan to hurt others: No Plan service: No Physical Exam ED Vital Signs: Vital Signs - 24 hr 12/28/24 21:17 Temperature 97.5 F Pulse Rate 65 Respiratory Rate 16 Blood Pressure 119/58 L Pulse Oximetry 94 Oxygen Delivery Method Room Air BMI result Body Mass Index 23.8 Const Other: Alert well-appearing Orientation/consciousness: patient oriented x3 Resp Effort & Inspection: normal respiratory effort Cardio Other: Normal peripheral perfusion Skin Other: Warm dry no rash Neuro General: patient oriented x3, gait normal, no focal motor deficits and CN's II-XI intact bilaterally Extrem Other: 2 cm linear laceration over left forearm superficial not bleeding Psych Other: Cooperative Medications Administered Discontinued Medications Generic Name Dose Route Start Last Admin Trade Name Freq PRN Reason Stop Dose Admin Lidocaine/Epinephrine 10 ml 12/29/24 00:30 12/29/24 01:06 Lidocaine Hcl 1%/Epi 1:100,000 10 Ml Vial INFILTRATI 12/29/24 00:31 10 ml ONCE ONE Administration Procedures Laceration Laceration 1: Site: upper extremity Side (If applicable): left Size (cm): 2 Description: linear Depth: simple, single layer Local Anesthetic: lidocaine 1% and with epi Amount of anesthesia used (mL): 3 Pre-repair: irrigated extensively Skin layer closed with: nylon Size (cm): 4-0 Number of sutures: 4 Technique: simple, interrupted Medical Decision Making Medical Decision Making MDM Narrative: 79-year-old male presents with laceration to left forearm. Patient states he was in the kitchen using a knife, the knife slipped, stabbing himself in the left forearm. Tetanus up-to-date. Problem: Use of anticoagulation History: Per patient I have considered the following differential diagnoses: Laceration, contusion, abrasion, fracture , foreign body Plan: I ordered an x-ray , wanted to verify that the patient does not have a fracture or foreign body. X-rays normal. The laceration will require simple repair. I have independently reviewed the following tests: X-ray left forearm:Findings: No fractures or dislocations. No joint effusion. No significant arthritic change. No radiopaque foreign body. IMPRESSION: 1. No acute fracture or subluxation. Differential Diagnosis Differential Diagnoses: The differential diagnosis associated with the presentation includes See medical decision-making Admission/Observation Consideration of admission/observation: Escalation of care including admission/observation considered Not applicable Radiology Impression Discussion of test interpretation with radiology: I have reviewed the radiologist's reading. Discharge Plan Discharge Clinical Impression: Laceration of forearm, left Patient Disposition: Home, Self-Care Instructions: Laceration (ED) Additional Instructions: Four stitches were used to repair the laceration. They can be removed in 7 days. Keep the area clean and dry. Watch for signs of infection which would include redness, swelling, pus draining from the site or fever. If you develop any of these symptoms seek medical attention. Prescriptions: No Action amitriptyline 25 mg tablet 25 mg PO BEDTIME Qty: 90 0RF albuterol sulfate [Ventolin HFA] 90 mcg/actuation Hfa Aerosol Inhaler 2 puff INHALATION Q6H PRN (Reason: Wheezing) sumatriptan succinate 50 mg tablet 50 mg PO Q2H MDD 100 MG PRN (Reason: Migraine Headache) Rx Instructions: NO MORE THAN 2 TABS IN 24 HRS pantoprazole 40 mg tablet,delayed release (DR/EC) 40 mg PO DAILY@0630 Eliquis 5 mg Tablet 5 mg PO BID Qty: 180 0RF digoxin 125 mcg (0.125 mg) Tablet 0.125 mg PO DAILY Qty: 90 0RF Protocol: Hold for HR <: HOLD for HR < : 60 metoprolol tartrate 25 mg Tablet 25 mg PO BEDTIME Jardiance 10 mg tablet 10 mg PO DAILY Verquvo 2.5 mg tablet 2.5 mg PO DAILY metoprolol tartrate 50 mg tablet 50 mg PO DAILY@0800 Protocol: Hold for SBP/HR < HOLD for SBP < : 90 HOLD for HR < : 60 melatonin 5 mg tablet 5 mg PO BEDTIME PRN (Reason: sleep) Qty: 30 0RF albuterol sulfate 2.5 mg /3 mL (0.083 %) solution for nebulization 2.5 mg inhalation QID PRN (Reason: Wheezing) atorvastatin 80 mg tablet 80 mg PO DAILY multivitamin Tablet 1 tab PO DAILY (DME) lancets [TRUEplus Lancets] 33 gauge misc See Rx Instructions topical .MEDSUPPLY Qty: 100 Rx Instructions: As directed (DME) FreeStyle Lite Strips Strip See Rx Instructions Not Applicable BID Qty: 10 Rx Instructions: As directed Print Language: Serbian
[2024-12-29] MEDS: Lidocaine HCl 1%/Epi 1:100,000 10 ML VIAL INFILTRATI (01:06)
--- NOTE | 2024-12-29 01:10 | PC.NURSE ---
provider into assess and suture laceration
[2024-12-29 01:31] VITALS: BP 103/53; PULSE 54; RESP 16; TEMP 36.1; O2SAT 99
--- NOTE | 2024-12-29 01:32 | PC.NURSE ---
reviewed discharge instructions with pt , pt verbalized understanding, no sign of distress.
== END 2024-12-29 01:32 | disposition home or self-care (01) ==
PROVIDERS: Emergency Provider Emergency Medicine; PCP Internal Medicine
DX: S51.812A Laceration without foreign body of left forearm, initial encounter (principal); W26.0XXA Contact with knife, initial encounter; Y93.9 Activity, unspecified; Y92.9 Unspecified place or not applicable; Y99.8 Other external cause status; Z79.899 Other long term (current) drug therapy; Z87.891 Personal history of nicotine dependence
CPT/HCPCS: 12001; 73090; 99284; J2004

== ENCOUNTER → 2024-12-29 00:04 | Outpatient (BNV) | payer OTHER, SELFPAY | PROVIDERS: Emergency Provider Emergency Medicine; PCP Internal Medicine; Visit Provider Radiology Diagnostic Radiology | DX: S51.812A Laceration without foreign body of left forearm, initial encounter (principal); W26.0XXA Contact with knife, initial encounter | CPT/HCPCS: 73090 ==

== ENCOUNTER 2025-01-20 13:14 | Outpatient (AMB) | payer OTHER, SELFPAY ==
--- OUTSIDE RECORDS SUMMARY | 2023-09-13 05:00 | XMS_ITS ---
Author Organization [facility] Address [address] [place] [address] Care Team Providers Care Screen Printing Press Operator Name Role Phone Dawson Millard MD, Clayton Primary Care Provide Glenn Mary Jr Unavailable [phone] Encounters Encounter Location Date Provider Diagnosis [facility] [address] [place] [address] 09/13/2023 Glenn Monroy Jr Plan Of Treatment No Information Progress Notes * ROBB PADRONDOB:1945 ( 80 yo M)Acc No.[id number]:09/13/2023 Progress Notes Patient: ROBB GONZALEZ Provider: Rich Monroy MD :1945 A ge:78 Y S ex:Male Date:09/13/2023 Address:[address], [place] [facility] Pcp:Clayton valdovinos MD Subjective: * Chief Complaints: [...] 09/13/2023 Generated for Santosh dillard/Codie/eTdiandrasmitting on: 1 04:50 PM EDT
--- OUTSIDE RECORDS SUMMARY | 2023-09-22 05:20 | XMS_ITS ---
Author Organization [facility] Address [address] [place] [phone] Care Team Providers Care Supervisor Central Supply Name Role Phone Dawson Millard MD, Clayton Primary Care Provide r Glenn Thompson Jr Unavailable REASON FOR VISIT gerd Problems Problem Type SNOMED Code ICD Code Onset Dates Problem Status W/U Status Risk Notes Problem Gastro-esophagea l reflux disease without esophagitis (836026435) Gastro-esophage al reflux disease without esophagitis (K21.9) Active confirmed Encounters Encounter Location Date Provider Diagnosis [facility] [place] [address] [place] [phone] 09/22/2023 Glenn Monroy Jr Gastro-esophageal reflux disease without esophagitis K21.9 Assessments Encounter Date Diagnosis (ICD Code) Assessment Notes Treatment Notes Treatment Clinical Notes Section Notes 09/22/2023 Gastro-esophagea l reflux disease without esophagitis (ICD-10 - K21.9) Plan Of Treatment No Information Progress Notes * ROBB PADRONDOB:1945 ( 80 yo M)Acc No.[id number]:09/22/2023 EGD/MAC Patient: ROBB GONZALEZ Provider: Rich Monroy MD :1945 A ge:78 Y S ex:Male Date:09/22/2023 Address:[address] [id number] Pcp:Clayton valdovinos MD Subjective: * Chief Complaints: [...] 09/22/2023 Generated for Santosh dillard/Codie/Manishaitting on: 1 04:50 PM EDT
--- OUTSIDE RECORDS SUMMARY | 2024-09-03 04:20 | XMS_ITS ---
Author Organization [facility] Address [address] [place] [address] Care Team Providers Care Pipe Puller Name Role Phone Dawson Millard MD, Clayton Primary Care Provide r Glenn Thompson Jr Unavailable [phone] REASON FOR VISIT diverticulitis Encounters Encounter Location Date Provider Diagnosis [facility] Out[place] [address] [place] [phone] 09/03/2024 Glenn Monroy Jr Plan Of Treatment No Information Progress Notes * PADRONROBBDOB:1945 ( 80 yo M)Acc No.[id number]:09/03/2024 COLON WITH MAC Patient: ROBB GONZALEZ Provider: Rich Monroy MD :1945 A ge:79 Y S ex:Male Date:09/03/2024 Address:[address] [place] [facility] Pcp:Clayton valdovinos MD Subjective: * Chief Complaints: [...] 09/03/2024 Generated for Santosh dillard/Codie/eTransmitting on: 1 04:50 PM EDT
--- NOTE | 2025-01-20 13:33 | MHC.OFFVIS ---
Intake Visit Reasons: Last seen 09/02/24 per eCW Allergies lisinopril (LISINOPRIL) Allergy (Intermediate, Verified 12/28/24 21:25) COUGH oxycodone (From PERCOCET) Allergy (Intermediate, Verified 12/28/24 21:25) VOMITING alprazolam (From XANAX) Adverse Reaction (Intermediate, Verified 12/28/24 21:25) VOMITING gabapentin Adverse Reaction (Verified 12/28/24 21:25) Abdominal Pain HPI Comments Details: 80 years old man with hypertension, cardiomyopathy, depression, migraine, and tinnitus. His headaches were better and not happening. He has stopped taking nortriptyline stating that his sleep was also better. He complain of a whooshing sound in right ear. There was no pain. [facility] Medical History Weak urinary stream Erectile dysfunction Bleeding hemorrhoids Diabetes mellitus Arteriosclerosis Cancer Pulmonary nodule Non-ischemic cardiomyopathy CVA (cerebral vascular accident) Arthritis Asthma GERD (gastroesophageal reflux disease) Elevated cholesterol Diastolic dysfunction Surgical History Hx of transurethral resection of prostate History of esophagogastroduodenoscopy (EGD) H/O colonoscopy Hx of cataract extraction History of ankle surgery History of surgical removal of skin lesion History of hemorrhoidectomy History of appendectomy Family History Father Prostate cancer Mother Parkinson disease Social History Household Members: Children and Other Household Members Other:: two grandchild Housing: Apartment Do you presently have visiting nurse or other home services: Yes Alcohol intake: former Patient Tobacco Use Status: Former Tobacco user Second Hand Smoke Exposure: No service: No Review of Systems Narrative Constitutional:?No fever, chills, fatigue, weight loss, or night sweats. HEENT:?No headache, vision changes, hearing loss, nasal congestion, sore throat. Neurological:?No dizziness, syncope, seizures, numbness, tingling, weakness, tremors, memory loss. Psychiatric:?No anxiety, depression, mood swings, sleep disturbance, or hallucinations. Endocrine:?No heat/cold intolerance, polydipsia, polyuria, or hair/skin changes. Hematologic/Lymphatic:?No easy bruising, bleeding, or lymphadenopathy. Integumentary (Skin):?No rash, lesions, itching, or color changes. ? Physical Exam Neuro Other: Mental Status: Alert and oriented to person, place, and time. Normal attention. Normal spontaneous speech, fluency, and comprehension. Cranial Nerves: CN II: Visual keita full to confrontation, visual acuity intact. CN III, IV, : Pupils equal, round, reactive to light and accommodation. Extraocular movements are normal. CN V: Facial sensation is normal. CN VII: Facial movements symmetrical. CN VIII: Hearing intact to bedside conversation is normal. CN IX, X: Palate elevates symmetrically. CN XI: Shoulder shrug and head turn symmetrical. CN XII: Tongue midline without atrophy or fasciculations. Extrapyramidal: Full facial expressions and blinking. No rigidity. Movements are appropriate with no tremor or abnormality. Speech: Normal; no dysarthria or tremor. Assessment & Plan Assessment & Plan (1) Tinnitus: Code(s): H93.19 - Tinnitus, unspecified ear Category: Medical Qualifiers: Laterality: right Qualified Code(s): H93.11 - Tinnitus, right ear (2) Migraine: Code(s): G43.909 - Migraine, unspecified, not intractable, without status migrainosus Category: Medical Qualifiers: Migraine type: without aura Status migrainosus presence: without status migrainosus Intractability: not intractable Qualified Code(s): G43.009 - Migraine without aura, not intractable, without status migrainosus Plan 80 years old man with mild migraine type of headaches which were not happening at this time, right ear mild tinnitus, and sometime difficulty sleeping. At this time he was not on any medicine and was feeling better. Exam was normal. He was reassured and educated. No follow-up appointment was made with the understanding that he could come back if needed. Coding Level of Care Code Est Pt Level 4 (03111) Diagnoses Tinnitus of right ear H93.11 Laterality: right Migraine without aura and without status migrainosus, not intractable G43.009 Migraine type: without aura Status migrainosus presence: without status migrainosus Intractability: not intractable
--- OUTSIDE RECORDS SUMMARY | 2025-01-20 16:50 | XMS_ITS | Encounter Summary ---
Author Organization [employer] Address [address] [place] [id number] Care Team Providers Care Junior Engineer Name Role Phone Clayton Lyon MD Primary Care Provide r Chris Leal MD Unavailable [phone] Encounter Details Date Type Department Care Team (Late st Contact Info) Description 03/07/2022 [facility] Health Information Management [address] [place] [address] [phone] Clayton Lyon MD [address] [place] [address] [phone] Social History Tobacco Use Types Packs/Day Years [...] Department Care Team (Late Contact Info) Description 04/08/2025 11:30 AM EST Office Visit [facility] [address] [place] [address] [phone] Clayton Lyon MD [address] [place], [place] [phone] 10/10/2025 9:30 AM EDT Medication Management [facility] [address] [place] [address] [phone] Ban Toribio, PharmD [address] [place] [address] documented as of this encounter Procedures Procedure Name Priority Date/Time Associated Diagnosis Comments PSA, TOTAL Routine 12/05/2022 11:19 AM EDT STREP A NUCLEIC ACID Routine 05/30/2022 11:58 AM EST SARS COV2/INFLUENZA A/B AND RSV RNA QL NAAT Routine 05/30/2022 11:58 AM EST documented in this encounter Results * PSA,Total (12/05/2022 11:19 AM EDT) Prostate Specific Antigen 0.50 <0.05 - 4.0 ng/mL [facility] Comment:PSA methodology: Lolly Hammond i ChemiluminescentMicroparticle Immunoassay (CMIA) 12/05/2022 11:1 9 AM EDT 12/05/2022 11:19 AM EDT [facility] External Provider LAB BLO OD ORDERABLES Final Result [facility] [address] [place] [phone] * SARS-CoV-2 RNA, Influenza A/B, and RSV RNA, Ql NAAT (05/30/2022 11:58 AM EST) Influenza A PCR NEGATIVE Negative [facility] Influenza B PCR NEGATIVE Negative [facility] Resp Syncy Virus RNA Qual PCR NEGATIVE Negative [facility] SARS COV2 PCR NEGATIVE Negative [facility] SARS/Flu/RSV Note See Note [facility] Comment:All test results mus t [...] use by authorized laboratories.Testing performed on the [employer] GeneXpert utilizingreal-time RT-PCR.All SARS CoV2 and positive influenza A/B results arereported to [facility]. 05/30/2022 11:5 8 AM EST 05/30/2022 12:03 PM EST [facility] Exter nal Provider LAB MICROBIOLOGY - GENERAL ORDERABLES Final Result Performing Organization Address [facility] Co de Phone Number [facility] [address] [place] [address] [phone] * Strep A Nucleic Acid (05/30/2022 11:58 AM EST) [employer] SERIAL# [id number] [facility] Strep A Nucleic Acid Negative Negative [facility] Comment:All test results mus t [...] Final Result Performing Organization Address [facility] Co de Phone Number [facility] [address] [place] [phone] documented in this encounter Visit Diagnoses Not on filedocumented in this encounter Care Teams Junior Engineer Relationship Specialty Start Date End Date Clayton Lyon MD [address] [place] [address] [phone] PCP - General Internal Medicine 11/12/13 Chris Leal MD [address] [place] [address] Cardiology 07/10/24 [facility] 08/18/21 documented as of this encounter
--- OUTSIDE RECORDS SUMMARY | 2025-01-20 16:50 | XMS_ITS | Encounter Summary ---
Author Organization [employer] Address [address] [facility] [address] [place] [address] Care Team Providers Care Corporate Statistical Financial Analyst Name Role Phone Clayton Lyon MD Primary Care Provide r Chris Leal MD Unavailable Reason for Visit * Reason Onset Date Comments ER Follow-up 08/31/2023 Encounter Details Date Type Department Care Team ([facility] Contact Info) Description 08/31/2023 Telephone [facility] [address] [place], [place] [phone] Clayton Lyon MD [address] [place], [place] [phone] ER Follow-up Social History Tobacco Use Types [...] ED visit on : Date: 09/18/23 Hospital: [facility] Seen for: fall Patient advised will forward to team nurse for follow up documented in this encounter Plan of Treatment Upcoming Encounters Date Type Department Care Team (Late st Contact Info) Description 04/08/2025 11:30 AM EST Office Visit [facility] [address] [place] [address] [phone] Clayton Lyon MD [address] [place] [phone] 10/10/2025 9:30 AM EDT Medication Management [facility] [address] [place] [address] [phone] Ban Toribio, PharmD [address] [place] [phone] documented as of this encounter Visit Diagnoses Not on filedocumented in this encounter Care Teams Corporate Statistical Financial Analyst Relationship Specialty Start Date End Date Clayton Lyon MD [address] [place] [address] [phone] PCP - General Internal Medicine 11/12/13 Chris Leal MD [address] [place] [address] Cardiology 07/10/24 [facility] 08/18/21 documented as of this encounter
--- OUTSIDE RECORDS SUMMARY | 2025-01-20 16:50 | XMS_ITS | Encounter Summary ---
Author Organization [employer] Address [address] [place] [address] [address] [place] [address] Care Team Providers Care Hospital Liaison Name Role Phone Clayton Lyon MD Primary Care Provide r Chris Leal MD Unavailable [phone] Reason for Visit * Reason Onset Date Comments February recall 01/18/2025 Encounter Details Date Type Department Care Team ([facility] Contact Info) Description 01/18/[address] [facility] [address] [place], [place] [phone] Clayton Lyon MD [address] [place] [address] February Social History Tobacco Use Types Packs/Day Years [...] encounter Miscellaneous Notes * Telephone Encounter - Trevor Ashford MA - 01/18/2025 12:04 PM EDT Telephone call to patient to schedule the following recall: Visit type: Office visit Appointment notes: DM Patient agree to appointment on 04/08/25 at 11:30 AM with [place]. documented in this encounter Plan of Treatment Upcoming Encounters Date Type Department Care Team (Late st Contact Info) Description 04/08/2025 11:30 AM EST Office Visit [facility] [address] [place] [phone] Clayton Lyon MD [address] [place] [phone] 10/10/2025 9:30 AM EDT Medication Management [facility] [address] [place] [phone] Ban Toribio, PharmD [address] [place] [phone] documented as of this encounter Visit Diagnoses Not on filedocumented in this encounter Additional Health Concerns Assessment Noted Time PHQ-9 Depression Total Score: 0 09/20/19 25 9:19 AM EDT documented as of this encounter Care Teams Hospital Liaison Relationship Specialty Start Date End Date Clayton Lyon MD [address] [place] [phone] PCP - General Internal Medicine 11/12/13 Chris Leal MD [address] [place] [address] Cardiology 07/10/24 [facility] 08/18/21 documented as of this encounter
--- OUTSIDE RECORDS SUMMARY | 2025-01-20 16:50 | XMS_ITS | Clinical Summary ---
Author Organization [employer] Address [address] [place] [address] [address] [place] [address] Care Team Providers Care Owner/Photographer Name Role Phone Clayton Lyon MD Primary Care Provide r Chris Leal MD Unavailable [phone] Allergies Active Allergy Reactions Criticality Noted Date [...] mouth 2 times daily. 03/01/20 22 Active atorvastatin (Lipitor) 80 MG tablet [...] 07/12/19 25 Active triamcinolone (Kenalog) 0.1 % creamIndications: Pityriasis rosea Apply topically if needed in the morning and at bedtime (pain and swelling). 30 g 2 09/07/19 25 Active albuterol (2.5 MG/3ML) 0.083% nebulizer solutionIndicatio ns:Bronchitis INJECT 1 AMPULE USING A NEBULIZER EVERY [...] DIRECTED 100 each 11 09/20/19 25 Active Ventolin HFA 108 (90 Base) MCG/ACT inhalerIndication s:Restrictive lung disease INHALE 2 PUFFS BY MOUTH [...] 12/21/19 25 Active mirtazapine (Remeron) 7.5 MG tabletIndications :Primary insomnia Take 1 tablet (7.5 mg) by mouth if needed at bedtime (insomnia). 30 tablet 2 12/25/19 25 Active Multiple Vitamin (Multivitamin) tabletIndications :Fatigue due to excessive exertion, sequela TAKE 1 TABLET BY MOUTH EVERY MORNING 90 tablet 1 12/27/19 25 Active Blood Glucose Monitoring Suppl (FreeStyle Oilton Lite) w/Device kitIndications:Ty pe 2 diabetes mellitus with hyperlipidemia (HCC) Test blood sugar daily 1 kit 01/03/20 25 Active Alcohol Swabs pads Use to clean area prior to checking blood sugar once daily 100 each 11 01/07/20 25 Active cetirizine (ZyrTEC) 10 MG tabletIndications :Seasonal allergies TAKE 1/2 TABLET BY MOUTH ONCE DAILY 15 tablet 3 01/18/20 25 Active Blood Glucose Monitoring Suppl (FreeStyle Oilton Lite) w/Device kit USE FOR TEST BLOOD SUGAR EVERY DAY 05/28/19 22 2024 Discontinued(R eorder (will not trigger notification to Pharmacy)) Multiple Vitamin (Multivitamin) tabletIndications :Fatigue due to excessive exertion, sequela TAKE 1 TABLET BY MOUTH EVERY MORNING 90 tablet 09/07/19 25 2024 Discontinued cetirizine (ZyrTEC) 10 MG tabletIndications :Seasonal allergies Take 0.5 tablets (5 mg) by mouth Once per day. 15 tablet 3 09/20/19 25 2024 Discontinued traZODone (Desyrel) 100 MG tabletIndications :Primary insomnia Take 1 tablet (100 mg) by mouth at bedtime. 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 EKG and Trop negative on [...] with RVR. Under the care of Director Of Events Dr. Leal who has recommended Cardioversion, done 08/18/2024, unfortunately went back to Afib. Seen by Cardiology 09/09/2024 who recommended ablation tat [facility] Pt is now S/p Ablation 10/24/2024 Last seen by Cardiology 12/11/2024 Assessment & Plan (09/19/2024 9:27 AM EDT): Pt here for a follow up, recently hospitalized and diagnosed with A.Fib with RVR. Under the care of Director Of Events Dr. Leal who has recommended Cardioversion, done 08/18/2024, unfortunately went back to Afib. Seen by Cardiology 09/09/2024 who now recommended ablation to be scheduled at [facility] Assessment & Plan (08/13/2024 9:10 AM EDT): Pt recently hospitalized and diagnosed with A.Fib with RVR. Under the care of Director Of Events Dr. Leal who has recommended Cardioversion Diverticulosis [...] 10:24 AM EDT): Pt seen by Senior Vice President Dr Garcia He reviewed his laboratory results That included: CRP, RF, ESR and DAVIE were all Normal His assessment was that patient had fibromyalgia Right hand pain 11/01/2022 Assessment & Plan (02/14/2023 10:24 AM EST): Patient with painful right index finger, difficulty bending it. Seen at [facility] received steroid injections with good results 11/24/2022 Assessment & Plan (11/01/2022 10:25 AM EDT): Patient with painful right index finger, difficulty bending it. Seen in the past at [facility] received steroid injections with good results Pt would like to go back Grade II hemorrhoids 11/01/2022 Assessment & Plan (02/14/2023 10:24 AM EST): Evaluated by Dr Carney 10/2022 opted for conservative measures Assessment & Plan (11/01/2022 10:32 AM EDT): Patient with c/o BRBPR Exam indicative of hemorrhoids Plan: Increase fluid, fiber in diet Proctosl H Referral to Dr Carney [facility] health care 08/02/2022 Assessment & Plan (12/17/2024 9:44 [...] EST): Pt seen in the ER at [facility] yesterday with cough, diagnosed with bronchitis. Treated with Prednisone, Benzonatate and a z-pack, Chest x-ray was negative Arthralgia 05/12/2022 Assessment & Plan (05/30/2022 12:49 PM EST): Televisit Pt seen by Dr. Enrique at our [facility] with c/o arthralgias, worse [...] shoulder pain. Seen in the past at [facility], last seen 02/27/2019 received a steroid [...] Clinical correlation recommended. Pt was seen by [facility] 08/2018 who thought this was due [...] Clinical correlation recommended. Pt was seen by [facility] 08/2018 who thought this was due [...] Dr Monroy 5 yr f/u Cerebrovascular accident ([facility]/HCC) 07/10/2013 Chronic headache disorder 03/22/2013 Assessment & [...] of his LS spine done showed: 1. Phak-vd-bdudvaxe loss of disc height at L4-L5 with a right paracentral disc extrusion resulting in mass effect upon the right L5 nerve root. Mild central canal stenosis. Broad-based left lateral disc protrusion and endplate spurring abutting the exiting left L4 nerve root. Uglv-mk-yehjzxur bilateral foraminal narrowing. 2. Mild spondylitic changes [...] organization. Date Type Department Care Team Description 01/18/2025 Telephone [facility] [place] [address] Clayton Lyon MD February recall 01/17/2025 Refill [facility] [place] [address] Clayton Lyon MD Seasonal allergies 01/06/2025 10:30 AM EDT Clinical Support [facility] [place] [address] Lisa Cheney RN Laceration of left upper extremity, initial encounter 01/06/2025 Travel 01/03/2025 Refill [facility] [place] [address] Clayton Lyon MD 01/02/2025 Orders Only [facility] [place] [address] Clayton Lyon MD 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) (Primary Dx) 12/31/2024 Telephone [facility] [place] [address] Clayton Lyon MD ER Follow-up 12/26/2024 Telephone [facility] [place] [address] Clayton Lyon MD Medication Question 12/26/2024 Refill [facility] [place] [address] Clayton Lyon MD Fatigue due to excessive exertion, sequela 12/26/2024 Refill [facility] [address] [facility] [address] [place] [phone] Julia Beckwith MD Fatigue due to excessive exertion, sequela 12/24/2024 11:00 AM EDT Office Visit [facility] [address] [place] [address] Josselyn Enrique MD Primary insomnia (Primary Dx); Anxiety 12/24/2024 Travel 12/24/2024 Telephone [facility] MEDICINE [address] [place] [address] Clayton Lyon MD ER Follow-up 12/23/2024 Orders Only GENERIC EXTERNAL DATA DEPARTMENT Provider, Generic External Data 12/20/2024 Refill [facility] [address] [facility] [place] [address] Jennie Zhu DO 12/17/2024 10:00 AM EDT Office Visit [facility] MEDICINE [address] [place] [address] Clayton Lyon MD 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) (CMS/HCC) (Primary Dx); Paroxysmal atrial fibrillation (CMS/HCC); Chronic systolic heart failure (CMS/HCC); Essential hypertension; Hypercholesterolemia; Preventative health care; Primary insomnia; Encounter for immunization 12/17/2024 Travel 12/16/2024 Telephone [facility] MEDICINE [address] [place], [place] [phone] Clayton Lyon MD chart prep 12/11/[address] [phone] Clayton Lyon MD Nurse Triage 12/07/2024 Refill [facility] MED[facility]INE [address] [place] [address] [phone] Clayton Lyon MD Restrictive lung disease 11/27/2024 Telephone [facility] [address] [place], [place] [phone] Clayton Lyon MD Durable Medical Equipment 11/21/2024 Telephone [facility] [address] [place], [place] [phone] Clayton Lyon MD Call Back Request from Last 3 Months Immunizations Immunization Administration [...] Description 04/08/2025 11:30 AM EST Office Visit [facility] MED[facility] [address] [place] [phone] Clayton Lyon MD [address] [place] [phone] 10/10/2025 9:30 AM EDT Medication Management [facility] [address] [place] [phone] Ban Toribio, Lam [address] [place] [phone] Health Maintenance Due Date Last Done Comments [...] Procedure Name Priority Date/Time Associated Diagnosis Comments SUTURE REMOVAL Routine 01/06/2025 10:17 AM EDT Laceration of left upper extremity, initial encounter XR FOREARM 2 VIEWS LEFT Routine 12/29/2024 [...] Recently Relevant to Health Maintenance Results * Suture Removal (01/06/2025 10:17 AM EDT) Lisa Godoy RN - 01/06/2025 10:17 AM EDT Lisa Cheney RN 01/06/2025 10:32 AM Suture Removal Date/Time: 01/06/2025 10:17 AM Performed by: Lisa Cheney RN Authorized by: Clayton Millard MD Consent: Consent obtained: Verbal Consent given by: Patient Risks, benefits, and alternatives were discussed: yes Risks discussed: Bleeding, wound separation and pain Alternatives discussed: No treatment [place] protocol: Patient identity confirmed: Verbally with patient Location: Location: Upper extremity Upper extremity location: Arm Arm location: L lower arm Procedure details: Wound appearance: No signs of infection Sutures removed: 4. Post-procedure details: Post-removal: Antibiotic ointment applied and Band-Aid applied Procedure completion: Tolerated well, no immediate complications us Clayton Millard MD IN CLINIC/BEDSIDE ORD ERABLES Final Result * XR Forearm 2 Views Left (12/29/2024 12:29 AM EDT) Anatomical Region Laterality Modality Upper Extremities, Forearm Left Radio graphic Imaging 12/29/2024 12:2 9 AM EDT Narrative 12/29/2024 12:31 AM EDT [place] [address] XRay Report Signed Patient: Shelton Davis MR#: [id number] : 1945 Acct:[id number] Age/Sex: 79 / M ADM Date: 12/28/24 Loc: HO.ED Attending Dr: Ordering Physician: Hillary Bailey Date of Service: 12/29/24 Procedure(s): XR forearm LT 2V Accession Number(s): [id number] cc: Clayton Chavez MD; Hillary Bailey Reason [...] in OV> 12/29/24 003 DD/ TD/TT: 12/29/2428 Substance Abuse Technician: Procedure Note Donotuseinterpreter, Image - 12/29/[address] [address] XRay Report Signed Patient: Shelton DavisMR#: [id number] : 1945cct:[id number] Age/Sex: 79 / MADM Date: 12/28/24 Loc: .ED Attending Dr: Ordering Physician: Hillary Bailey Date of Service: 12/29/24 Procedure(s): XR forearm LT 2V Accession Number(s): [id number] cc: Clayton Chavez MD; Hillary Bailey Reason [...] in OV> 12/29/24 003 DD/ TD/TT: 12/29/2428 Substance Abuse Technician: us [facility] External Provider IMG XR PROCEDURES Edited Result - Final * (ABNORMAL) Urinalysis, Complete, with Reflex to Culture (12/23/2024 10:53 AM EDT) Color Urine Yellow [facility] Appearance Urine Clear [facility] PH 6.5 5.0 - 9.0 [facility] Glucose Urine UA >=1000(A) Negative mg/dL [facility] Urine Blood Negative Negative [facility] Specific [place] - Urine 1.015 1.005 - 1.025 [facility] Urine Protein Negative Neg-Trace mg/dL [facility] Urine Ketones Negative Negative mg/dL [facility] Nitrite Urine Negative Negative [facility] Leukocyte Esterase Urine Negative Negative [facility] RBC Urine 0-2 0 - 2 /HPF [facility] Urine WBC 0-5 0 - 5 /HPF [facility] Urine Squamous Epithelial Cell 0-2 0 - 2 /HPF [facility] Urine Bacteria None Seen None Seen [facility] Hyaline Casts, Urine 0-2 0 - 2 /LPF [facility] 12/23/2024 10:5 3 AM EDT 12/23/2024 11:15 AM EDT Narrative [facility] - 12/23/2024 11:24 AM EDT 1052Urine, Clean Catch us Generic External Data Provider LAB URINE ORDERAB LES Final Result [facility] [address] [place] [address] [phone] * CBC auto differential (12/23/2024 9:46 AM EDT) White Blood Count 8.2 4.8 - 10.8 X10*3/uL [facility] Red Blood Count 5.00 4.60 - 5.80 X10*6/uL [facility] Hemoglobin 16.5 14.0 - 18.0 g/dl [facility] Hematocrit 48.6 42.0 - 52.0 % [facility] Mean Corpuscular Volume 97.2 80.0 - 98.0 fL [facility] Mean Corpuscular Hemoglobin 33.0 27.0 - 33.0 pg [facility] Mean Corpuscular HGB Conc 34.0 31.0 - 36.0 g/dl [facility] Red Cell Distribution Width 13.4 11.0 - 16.0 % [facility] Platelet Count 229 160 - 400 X10*3/uL [facility] Mean Platelet Volume 10.1 9.4 - 12.4 fL [facility] Neutrophils Percent Auto 57.7 45 - 73 % [facility] Imm Gran Pct Auto 0.4 0.0 - 0.4 % [facility] Lymphocytes Percent Auto 34.6 20 - 40 % [facility] Monocytes Percent Auto 6.6 2 - 11 % [facility] Eosinophils Percent Auto 0.5 0 - 4 % [facility] Basophils Percent Auto 0.2 0 - 2 % [facility] NRBC Pct Auto 0.0 0.0 - 0.2 /100WBC [facility] Neutrophils Absolute Auto 4.7 2.0 - 8.3 x10*3/uL [facility] Imm Gran Abs Auto 0.03 0.00 - 0.03 X10*3/uL [facility] Lymphocytes Absolute Auto 2.8 1.2 - 4.9 X10*3/uL [facility] Monocytes Absolute Auto 0.5 0.1 - 1.2 X10*3/uL [facility] Eosinophils Absolute Auto 0.0 0.0 - 0.4 X10*3/uL [facility] Basophils Absolute Auto 0.0 0.0 - 0.2 X10*3/uL [facility] NRBC Abs Auto 0.000 0.0 - 0.012 X10*3/uL [facility] 12/23/2024 9:46 AM EDT 12/23/2024 9:49 AM EDT us Generic External Data Provider LAB BLOOD ORDERAB LES Final Result [facility] [address] [place] [phone] * Magnesium (12/23/2024 9:46 AM EDT) Magnesium 2.3 1.6 - 2.6 mg/dL [facility] 12/23/2024 9:46 AM EDT 12/23/2024 9:49 AM EDT us Generic External Data Provider LAB BLOOD ORDERAB LES Final Result [facility] [address] [place] [phone] * (ABNORMAL) Comprehensive Metabolic Panel (12/23/2024 9:46 AM EDT) Sodium 136 135 - 145 mmol/L [facility] Potassium 4.4 3.3 - 5.1 mmol/L [facility] Chloride 104 96 - 108 mmol/L [facility] Carbon Dioxide 25 22 - 29 mmol/L [facility] Anion Gap 11(L) 12 - 20 [facility] Urea Nitrogen (BUN) 18(H) 9 - 16 mg/dL [facility] Creatinine, Serum 1.17 0.5 - 1.4 mg/dL [facility] Creatinine Clr Calc Pharmacy 48.6 [facility] Comment:eGFR (calculated fro m the MDRD study equation) and eCrCl(calculated from the Cockcroft-Gault equation) are based ondifferent parameters and may not yield comparable results.If eCrCl result is absurd, please check patient'sheight/weight. Estimated Glomerular Filt Rate >60 [facility] Comment:Chronic Kidney Disea se: Estimated GFR < 60 mL/min/1.30i8Rahvmc Kidney Disease: Estimated GFR < 15 mL/min/1.73m2 Glucose 103 60 - 115 mg/dL [facility] Calcium 9.7 8.4 - 10.2 mg/dL [facility] Bilirubin, Total 0.5 0.0 - 1.0 mg/dL [facility] Aspartate Amino Transferase 40(H) 5 - 37 U/L [facility] Alanine Aminotransferase 27 0 - 40 U/L [facility] Total Protein 7.5 6.5 - 8.0 g/dL [facility] Albumin Level 4.5 3.5 - 5.0 g/dL [facility] Alkaline Phosphatase 85 39 - 117 U/L [facility] 12/23/2024 9:46 AM EDT 12/23/2024 9:49 AM EDT Generic External Data Provider LAB BLOOD ORDERAB LES Final Result [facility] [address] [place] [phone] * POCT glucose manually resulted (12/17/2024 10:02 AM EDT) Glucose Blood, POC 80 60 - 200 mg/dL QC Media Lot # [id number] Lot# Expiration Date 076, Blood Capillary blood specimen / Unknown 12/17/2024 10:02 AM EDT Clayton Millard MD POINT OF CARE TEST EN TER/EDIT ORDERABLES Final Result * (ABNORMAL) POCT glycosylated hemoglobin (Hgb A1c) (12/17/2024 10:00 AM EDT) Hemoglobin A1C 6.3(A) 4.0 - 5.7 % QC Media Lot # [id number] Lot# Expiration Date ,376,027 Blood Capillary blood specimen / Unknown 12/17/2024 10:00 AM EDT Clayton Millard MD POINT OF CARE TEST EN TER/EDIT ORDERABLES Final Result * (ABNORMAL) Lipid Panel, Standard (09/09/2024 9:27 AM EDT) Triglycerides 186(H) <150 mg/dL [facility] Comment:Desirable Triglyceri de: less than 150 mg/dLBorderline High Triglyceride 150-199 mg/dLHigh Triglyceride: 200-499 mg/dLVery High Triglyceride: greater than or equal to 5OO mg/dL Cholesterol 187 <200 mg/dL [facility] Comment:Desirable Cholestero l: less than 200 mg/dLBorderline High Cholesterol: 200-239 mg/dLHigh Cholesterol: greater than 239 mg/dL LDL Cholesterol Calculated 118(H) <100 mg/dL [facility] Comment:Desirable LDL: less than 100 mg/dLNear Optimal/Above Optimal LDL: 110- 129 mg/dLBorderline High LDL: 130-159 mg/dLHigh LDL: 160-189 mg/dLVery High LDL: greater than or equal to 190 mg/dL HDL Cholesterol 32(L) >40 mg/dL [facility] Comment:Desirable HDL: great er than 40 mg/dL Note: This HDL assay may give artificially low results in patients with liver disease. Blood Venous blood specimen / Unknown 09/09/2024 9:27 AM EDT 09/09/2024 11:20 AM EDT Clayton Millard MD LAB BLOOD ORDERABLES Final Result Performing Organization Address City/[facility]/ZIP Co de Phone Number [facility] [address] [place] [phone] * Albumin, Random Urine W/Creatinine (12/14/2023 9:20 AM EDT) Creatinine, Urine 167.95 mg/dL [facility] Microalbumin Urine 8.0 mg/L [facility] Microalbum Creatinine Ratio Ur 4.7 <30 ug/mg cr [facility] Comment:Albumin/Creatinine R atio Reference Ranges: Normal: < 30 ug/mg creatinine Microalbuminuria: 30 - 300 ug/mg creatinineClinical Albuminuria: > 300 ug/mg creatinine Urine (Urine, Random) 12/14/2023 9:20 AM EDT 12/14/2023 11:13 AM EDT Clayton Millard MD LAB URINE ORDERABLES Final Result Performing Organization Address City/[facility]/ZIP Co de Phone Number [facility] [address] [place] [phone] * Hepatitis C Antibody with Reflex to HCV, RNA, Quantitative, Real-Time PCR (04/04/2022 10:44 AM EST) Hepatitis C Antibody NON-REACT FRANCHESCA NON-REACT FRANCHESCA [facility] [facility] [employer] [place] [employer] Index <0.02 <1.00 [facility] [employer] Comment: HCV antibody was non-reactive. There is no laboratory evidence of HCV infection. In most cases, no further action is required. However, if recent HCV exposure is suspected, a test for HCV RNA (test code 49970) is suggested. For additional information please refer to http://education.Apsmart/faq/IHQ01z8 (This link is being provided for informational/ educational purposes only.) Blood Venous blood specimen / Unknown 04/04/2022 10:44 AM EST 04/04/2022 10:44 AM EST Narrative [facility] - 04/05/2022 6:45 PM EST FASTING:YES FASTING: YES Clayton Millard MD LAB BLOOD ORDERABLES Final Result [facility] [address], [place] [address] [facility] [facility] [employer] [place] [employer] [address] [facility], (N[address]) [place] [phone] from Last 3 Months or Most Recently Relevant to Health Maintenance Insurance [facility] [employer] OPTIONS (HMO D-SNP) [place] [id number] [place] [address] Care Teams Owner/Photographer Relationship Specialty Start Date End Date Clayton Lyon MD [address] [place] [address] PCP - General Internal Medicine 11/12/13 Chris Leal MD [address] [place] [address] Cardiology 07/10/24 [facility] 08/18/21
--- OUTSIDE RECORDS SUMMARY | 2025-01-20 16:50 | XMS_ITS | Data Portability ---
Author Organization [facility], [email or web address] Address [address] [place] [address] Care Team Providers Care Die Holder Name Role Phone HIM CCA OTHER Assessment [...] been taking tylenol and occasional oxycodone. VSS. Education Counselor on site reports bruising over the shoulder, [...] Name and Address Organization Details Recorded Time 19100 lisinopri l medicatio n Not available Not available Not available 06/12/2024 36462 RxNorm Not Available [facility] - production 5 13:30:19 19384 gabapenti n medicatio n Not available Not available Not available 06/12/2024 26633 RxNorm Not Available [employer] - production 5 13:30:19 84228 Xanax medicatio n Not available Not available Not available 06/12/202450843 3 RxNorm Harriett Cortez MD [address] [place] [address],[address], [place], [address], [employer] 5 14:56:19 75562 oxycodone medicatio n Not available Not available Not available 06/12/2024 7804 RxNorm Harriett Cortez MD [address] [place] [address],[address], [place], [address], [facility] 5 14:56:24 20154 acetamino phen / oxycodone medicatio n Not available Not available Not available 06/12/2024 68107 3 RxNorm Not Available [employer] - production 15:37:05 Medications Name Sig Start [...] /min 98.6 [degF] 145/96 mm[Hg] Not Available [facility] 5 14:47:09 Date Recorded Oxygen saturation Oxygen saturation in Arterial blood by Pulse oximetry Respiratory rate Body temperature Heart rate Systolic And Diastolic Provider Name and Address Organization Details Last Updated DateTime 4 99 % 99 % 16 /min 98.1 [degF] 67 /min 132/80 mm[Hg] Not Available [facility] 4 12:49:57 Social History None recorded. Functional Status None recorded. Mental Status None recorded. Family History Nothing Reported. Medical History No medical history recorded. Past Encounters Encounter ID Performer Location Encounter Start Date Encounter Closed Date Diagnosis/Indication Diagnosis SNOMED-CT Code Diagnosis ICD10 Code Diagnosis IMO Codes Diagnosis Note [id number] Destiny Patel MD Main - [facility] [address] [place] [phone] 09/01/2023 12:46:34 11/21/2023 14:15:14 Muscle pain 07385495 M79.10 [id number] [facility]ett Cortez [facility] [address] [place] [phone] 06/12/2024 14:44:38 06/12/2024 22:02:59 Hypertensive disorder 09140501 I10 Evaluation in the field was performed by my scalloper colleague, as noted above, I provided real-time direction and supervisio n for this visit.This is a 79yo M with PMHx HTN seen at [facility] ED 05/25 for headache, dizziness, and [...] Leblanc Member ID Guarantor Name 06/12/2024 1 [facility] - DOS ON OR AFTER 2022 - DUAL ELIGIBLE - SNF OPTIONS AND ONE CARE (MEDICARE REPLACEMENT/ADV ANTAGE - HMO) Shelton Davis [id number] Shelton Davis Notes Date Note Type Note Provider Name and Address Organization Details Recorded Time 09/01/2023 text/html HPI: ROSSY is a very pleasant 78 Afghan speaking y/o male with a PMH of, [...] multiple Xrays. All imaging was negative and MARCYR was subsequently sent home. Today, MARCYR reports increased neck and upper back pain, which is causing him to have difficulty sleeping. He denies CP, SOB, fevers, headaches, visual disturbances, dizziness, or N/T to upper/lower extremities. He is walking without difficulty, but m ust go slowly due to the pain. MBR [...] do so. MBR can be reached at [phone]. .................. .................. .................. .................. .................. .................. .................. ............... CRC Nurse Triage Notes (Rosy Corona): Comments: CRC RN did not require any additional information to process this visit. .................. .................. .................. .................. .................. .................. .................. ............... Education Counselor Note From Hitesh Araiza: Dispatched to the [...] .................. ............... Disposition: Fallon Patel MD [address] [facility],[address], [place], [address], [facility] [place] 11/20/2023 19:41:13 06/12/2024 text/html CRC Nurse Triage Notes (Laine Horowitz): Reason For Request: Patient has blood pressure problems, headache, weak. Denies: History of Heart Attack, in the setting of active chest pain Active Chest pain, radiates to neck jaw and or arm Diaphoretic/Sweati ng Describes as c rushing Sudden onset of nausea/Vomiting and shortness of [...] at this time. Went to ER at [facility] on 05/25. Currently taking Metoprolol daily. Window Glass Installer instructed patient to increase dose to 2 tablets daily. Denies chest pain. Education provided on the response time and the member was advised to monitor reported s/s and seek emergency treatment if needed. .................. .................. .................. .................. .................. .................. .................. ............... Education Counselor Note From Nadine Bennett: Sent to a call for a pt complaining of hypertension. SC8 arrives on scene, pt is alert and oriented, airway is patent. Pt complains of hypertension along with the following intermittent symptoms since 05/25: headache, feeling off balance, sob, and nausea. Pt denies cp, vomiting, diarrhea, abd pain, fever, or loc. Pt states he was evaluated at [facility] ED on 05/25 and by Window Glass Installer on 06/07. Pt states his Metoprolol dosage was increased from 25mg to 50mg PO. (sitting) BP:145/96, P:63, RR:18, SpO2:96% RA, T:98.6; (standing) BP:147/101, P:63; Head: unremarkable; Lung sounds: clear bilaterally; Abdomen: soft, non-tender, no distention; Back: unremarkable; Extremities: unremarkable; Skin: pink, warm, dry; Pt requests transport to [facility] ED for re-evaluation. [facility] contacted and advised of pt's wishes. 911 called; [facility] .................. .................. .................. .................. .................. .................. .................. ............... [facility] Consulted: Harriett Cortez .................. .................. .................. .................. .................. .................. .................. ............... Disposition: Fulfilled Hrariett Cortez MD [address] [facility],[address], [place], [address], CARTER - Tip or SkipMYKEL RANGEL 06/12/2024 15:48:07
--- OUTSIDE RECORDS SUMMARY | 2025-01-20 16:50 | XMS_ITS | Encounter Summary ---
Author Organization [employer] Address [address] [place] [address] [address] [place] [address] Care Team Providers Care Bill Board Poster Name Role Phone Clayton Lyon MD Primary Care Provide r Chris Leal MD Unavailable Reason for Visit * Reason Comments Med Refill Encounter Details Date Type Department Care Team ([facility] Contact Info) Description 01/17/2025 Refill [facility] [address] [place], [place] [phone] Clayton Lyon MD [address] [place] [address] Seasonal allergies Social History Tobacco Use Types Packs/Day Years [...] Description 04/08/2025 11:30 AM EST Office Visit [facility] [address] [place] [address] Clayton Lyon MD [address] [place] [address] 10/10/2025 9:30 AM EDT Medication Management [facility] [address] [place] [address] Ban Toribio, PharmD [address] [place] [address] documented as of this encounter Visit Diagnoses Diagnosis Seasonal allergies Allergic rhinitis, cause unspecified documented in this encounter Additional Health Concerns Assessment Noted Time PHQ-9 Depression Total Score: 0 09/20/19 25 9:19 AM EDT documented as of this encounter Care Teams Bill Board Poster Relationship Specialty Start Date End Date Clayton Lyon MD [address] [place] [address] PCP - General Internal Medicine 11/12/13 Chris Leal MD [address] [place] [address] Cardiology 07/10/24 [facility] 08/18/21 documented as of this encounter
--- OUTSIDE RECORDS SUMMARY | 2025-01-20 16:50 | XMS_ITS | Patient Health Record ---
Author Organization [facility] Address [address] [place] [address] Care Team Providers Care Personalized Living Assistant Name Role Phone Dawson Millard MD, Clayton [...] 1 tablet as needed Orally Once a day; Duration: 30 day(s) Not-Taking Myrbetriq 25 MG 1 tablet Orally Once a day; Duration: 30 day(s) Active traMADol HCl 50 MG as directed Orally Not-Taking Ventolin HFA 108 (90 Base) MCG/ACT 1 puff as needed Inhalation every 4 hrs Active Albuterol Active metFORMIN HCl ER 500 MG 1 tablet with evening meal Orally Once a day Active Metoprolol Succinate 25 MG 1 capsule Orally Once a day; Duration: 30 day(s) Active Pantoprazole Sodium 40 MG 1 tablet Orally Twice daily; Duration: 30 days 11/24/2023 Active Cefuroxime Axetil 500 MG 1 tablet Orally every 12 hrs Active Amitriptyline HCl 10 MG TAKE 1 TABLET BY MOUTH AT BEDTIME Diagnosis Unavailable Oral; Duration: 30 Active Apixaban 5 MG as directed [...] Problem Status W/U Status Risk Notes Problem Colon cancer screening (500463457) Colon cancer screening (Z12.11) Active confirmed Problem Epigastric pain (96920421) Epigastric pain (R10.13) Active confirmed Problem Gastro-esophageal reflux disease without esophagitis (309615379) Gastro-esophageal reflux disease without esophagitis (K21.9) Active confirmed Problem Long-term current use of anticoagulant (750976021) emt intermediate (current) use of anticoagulants (Z79.01) Active confirmed Problem History of polyp of colon (situation) (707309116) Personal history of colonic polyps (Z86.010) Active confirmed Problem Irritable bowel syndrome with diarrhea (787523553) Irritable bowel syndrome with diarrhea (K58.0) Active confirmed Problem Generalized abdominal pain (850186135) Generalized abdominal pain (R10.84) Active confirmed Problem Diverticulitis (04742692) Diverticulitis (K57.92) Active confirmed Problem Gastroesophageal reflux disease without esophagitis (954944462) Gastroesophageal reflux disease without esophagitis (K21.9) Active confirmed Problem History of polyp of colon (situation) (545501846) History of colon polyps (Z86.010) Active confirmed Problem Gastroesophageal reflux disease with esophagitis (disorder) (822121287) Gastroesophageal reflux disease with esophagitis without hemorrhage (K21.00) Active confirmed Vital Signs Temperature 97.5 degrees Fahrenheit 07/08/2024 Blood pressure diastolic 01 mm Hg 07/08/2024 Height 67 in 07/08/2024 Blood pressure systolic 001 mm Hg 07/08/2024 Weight 160 lbs 07/08/2024 BMI 25.06 kg/m2 07/08/2024 Encounters Encounter Location Date Provider Diagnosis [facility] [address] [facility] [address] [place] [phone] 07/08/2024 Glenn Monroy Jr Diverticulitis K57.92 and snf (current) use of anticoagulants Z79.01 [facility] [address] [place] [address] 05/30/2024 Glenn Monroy Jr [facility] [address] [place] [phone] 07/08/2024 Glenncj Monroy Jr [facility] [address] [place] [address] 08/15/2024 Glenn Monroy Jr Assessments Encounter Date Diagnosis (ICD Code) Assessment Notes Treatment Notes Treatment Clinical Notes Section Notes 07/08/2024 emt intermediate (current) use of anticoagulants (ICD-10 - Z79.01) [...] Insured Coverage Start Date Coverage End Date [facility] [address] Attn Claims CIPRIANO Julio [id number] ROBB PADRON Self - patient is the [...]
--- OUTSIDE RECORDS SUMMARY | 2025-01-20 16:50 | XMS_ITS | Encounter Summary ---
Author Organization [employer] Address [address] [place] [address] 7 [place] [address] Care Team Providers Care Freight Service Inspector Name Role Phone Clayton Lyon MD Primary Care Provide r Chris Leal MD Unavailable [phone] Reason for Visit * Reason Onset Date Comments Medication Question 12/26/2024 Encounter Details Date Type Department Care Team ([facility] Contact Info) Description 12/26/2024 Telephone [facility] [address] [place], [place] [phone] Clayton Lyon MD [address] [place], [place] [phone] Medication Question Social History Tobacco Use Types [...] 11:12 AM EDT TC placed to the [facility] pharmacy who confirmed that the pt insurance will pay for a new Shared Performance Lite Blood Glucose Monitoring Kit. Will pend the mediation and route to PCP for review. * Telephone Encounter - Sonu Pittman - 12/26/2024 4:48 PM EDT Tc from pt requesting a call back regarding scripts for blood glucose monitor. Please contact pt at [phone]. (Frisian Speaker) documented in this encounter Plan of Treatment Upcoming Encounters Date Type Department Care Team (Late st Contact Info) Description 04/08/2025 11:30 AM EST Office Visit [facility] [address] [place] [address] Clayton Lyon MD [address] [place], [place] [phone] 10/10/2025 9:30 AM EDT Medication Management [facility] [address] [place] [address] Ban Toribio, EunD [address] [place] [address] documented as of this encounter Visit Diagnoses Not on filedocumented in this encounter Additional Health Concerns Assessment Noted Time PHQ-9 Depression Total Score: 0 09/20/19 25 9:19 AM EDT documented as of this encounter Care Teams Freight Service Inspector Relationship Specialty Start Date End Date Clayton Lyon MD [address] [place], [place] [phone] PCP - General Internal Medicine 11/12/13 Chris Leal MD [address] [place] [address] Cardiology 07/10/24 [facility] 08/18/21 documented as of this encounter
--- OUTSIDE RECORDS SUMMARY | 2025-01-20 16:50 | XMS_ITS | Clinical Summary ---
Author Organization [facility] Address [address] [facility] [address] [place] [address] Phone Care Team Providers Care Plumber Helper Name Role Phone Clayton Chavez MD Primary [...] 03/22/2013 INFLUENZA VACCINE (#1) 2024 COVID-19 VACCINE (1 - 2024-2 6 season) 2024 LIPID PANEL 12/13/2028 12/14/2023 HEPATITIS [...] file Insurance MEDIC[facility] A & [facility] MEDICARE PART A & B [facility] MEDICARE REPLACEMENT MEDICARE PART A & B [facility] MEDICARE REPLACEMENT MEDICARE PART A & B [facility] MEDICARE REPLACEMENT MEDICARE PART A & B Member Subscriber Plan / Payer (Ef fective 2010-Present) Name:Shelton Gonzalez Member ID:[id number] Relation to Subscriber:Self Name:Shelton Gonzalez Subscriber ID:[id number] Payer ID:[id number] Group ID:Not on file Type:Medicare Address: [employer] [address] [place] [address] [place] [address] MEDICARE REPLACEMENT MEDICARE PART A & B [facility] MEDICARE REPLACEMENT Care Teams Plumber Helper Relationship Specialty Start Date End Date Clayton Chavez MD [address] [place] [address] [email or web address] PCP - General Internal Medicine 07/29/24 Additional Source Comments The information contained in this document represents components of the legal health record. It is not the complete legal health record.[facility]
--- OUTSIDE RECORDS SUMMARY | 2025-01-20 16:50 | XMS_ITS | Encounter Summary ---
Author Organization [facility] Address [address] [facility] [address] [place] [phone] Phone Care Team Providers Care Health Education Aide Name Role Phone Clayton Chavez MD Primary Care Provide r Encounter Details Date Type Department Care Team (Late st Contact Info) Description 07/29/2024 Procedure [facility] [address] [place] [address] Social History Tobacco Use Types Packs/Day Years [...] on filedocumented in this encounter Care Teams Health Education Aide Relationship Specialty Start Date End Date Clayton Chavez MD [address] [place] [address] [email or web address] PCP - General Internal Medicine 07/29/24 documented as of this encounter Additional Source Comments The information contained in this document represents components of the legal health record. It is not the complete legal health record.[facility]
--- OUTSIDE RECORDS SUMMARY | 2025-01-20 16:50 | XMS_ITS | Encounter Summary ---
Author Organization [employer] Address [address] [facility] 7t [place] [address] Care Team Providers Care Student Success Advisor Name Role Phone Clayton Lyon MD Primary Care Provide r Chris Leal MD Unavailable [phone] Encounter Details Date Type Department Care Team ([facility] st Contact Info) Description 12/26/2024 Refill [facility] [address] [place], [place] [phone] Clayton Lyon MD [address] [place] [address] Fatigue due to excessive exertion, sequela Social [...] Description 04/08/2025 11:30 AM EST Office Visit [facility] [address] [place] [address] Clayton Lyon MD [address] [place] [address] 10/10/2025 9:30 AM EDT Medication Management [facility] [address] [place] [address] Ban Toribio, PharmD [address] [place] [address] documented as of this encounter Visit Diagnoses Diagnosis Fatigue due to excessive exertion, sequela documented in this encounter Additional Health Concerns Assessment Noted Time PHQ-9 Depression Total Score: 0 09/20/19 25 9:19 AM EDT documented as of this encounter Care Teams Student Success Advisor Relationship Specialty Start Date End Date Clayton Lyon MD [address] [place] [address] PCP - General Internal Medicine 11/12/13 Chris Leal MD [address] [place] [address] Cardiology 07/10/[address] [facility] 08/18/21 documented as of this encounter
--- OUTSIDE RECORDS SUMMARY | 2025-01-20 16:51 | XMS_ITS | Encounter Summary ---
Author Organization [facility] Address [address] [place] [address] 7 [place] [address] Care Team Providers Care Screw Machine Tender Name Role Phone Clayton Lyon MD Primary Care Provide r Chris Leal MD Unavailable Encounter Details Date Type Department Care Team (Latest Contact Info) Description 10/16/[address] [facility] CONVERSIONS Dental, Provider, DDS Social History [...] Description 04/08/2025 11:30 AM EST Office [address] [facility] MED[facility]INE [address] [place] [address] Clayton Lyon MD [address] [place] [address] 10/10/2025 9:30 AM EDT Medication Management [facility] [address] [place] [address] Ban Toribio, PharmD [address] [place] [address] documented as of this encounter Visit Diagnoses Not on filedocumented in this encounter Care Teams Screw Machine Tender Relationship Specialty Start Date End Date Clayton Lyon MD [address] [place] [address] PCP - General Internal Medicine 11/12/13 Chris Leal MD [address] [place] [address] Cardiology 07/10/24 [facility] 08/18/21 documented as of this encounter
--- OUTSIDE RECORDS SUMMARY | 2025-01-20 16:51 | XMS_ITS | Encounter Summary ---
Author Organization [employer] Address [address] [place] [address] 7 [place] [address] Care Team Providers Care Child Care Associate Name Role Phone Clayton Lyon MD Primary Care Provide r Chris Leal MD Unavailable [phone] Reason for Visit * Reason Onset Date Comments Hospital Follow-up 06/20/2024 Encounter Details Date Type Department Care Team ([facility] Contact Info) Description 06/20/2024 Telephone [facility]INE [address] [place], [place] [phone] Clayton Lyon MD [address] [place], [place] [phone] Hospital Follow-up Social History Tobacco Use Types [...] EDT Tc from pt returning phone call. [phone] * Telephone Encounter - Jade Zaidi - 06/20/2024 9:42 AM EDT Tc from pt requesting a HDF appt. Hospital: [facility] Date of admission: 06/15/2024 Discharge date: 06/19/2024 Diagnosed: Cardiomyopathy heart working 20 % severe heart failure Atrial fibrillation with RVR Pneumonia Diverticulitis *Send message to [facility] Clinical Care Coordinators documented in this encounter Plan of Treatment Upcoming Encounters Date Type Department Care Team (Late st Contact Info) Description 04/08/2025 11:30 AM EST Office Visit [facility] [address] [place] [address] Clayton Lyon MD [address] [place] [address] 10/10/2025 9:30 AM EDT Medication Management [facility] [address] [place] [address] Ban Toribio, PharmD [address] [place] [address] documented as of this encounter Visit Diagnoses Not on filedocumented in this encounter Additional Health Concerns Assessment Noted Time PHQ-9 Depression Total Score: 0 12/12/19 24 10:28 AM EDT documented as of this encounter Care Teams Child Care Associate Relationship Specialty Start Date End Date Clayton Lyon MD [address] [place], [place] [phone] PCP - General Internal Medicine 11/12/13 Chris Leal MD [address] [place] [address] Cardiology 07/10/24 [facility] 08/18/21 documented as of this encounter
--- OUTSIDE RECORDS SUMMARY | 2025-01-20 16:51 | XMS_ITS | Clinical Summary ---
Author Organization [facility] Address [address] [place] [address] Care Team Providers Care Suction Plate Roller Hand Name Role Phone Clayton Chavez MD Primary [...] age to complete this topic Care Teams Suction Plate Roller Hand Relationship Specialty Start Date End Date Clayton Chavez MD [address] [place] [address] [place] [address] PCP - General Internal Medicine 06/26/14
== END 2025-01-20 16:21 | disposition home or self-care (01) ==
LOC: HO.HSM 13:14
PROVIDERS: PCP Internal Medicine; Visit Provider Psychiatry & Neurology Neurology
DX: H93.11 Tinnitus, right ear (principal); G43.009 Migraine without aura, not intractable, without status migrainosus
CPT/HCPCS: 99214

== ENCOUNTER → 2025-01-20 13:14 | Outpatient (BNVA) | payer OTHER, SELFPAY | PROVIDERS: PCP Internal Medicine; Visit Provider Psychiatry & Neurology Neurology | DX: H93.11 Tinnitus, right ear (principal); G43.009 Migraine without aura, not intractable, without status migrainosus | CPT/HCPCS: 99212 ==

== ENCOUNTER 2025-01-28 09:09 | Outpatient (REF) | payer OTHER, SELFPAY ==
--- OUTSIDE RECORDS SUMMARY | 2023-09-13 04:00 | XMS_ITS ---
Author Organization [facility] Address [address] [place] [address] Care Team Providers Care Balance Staff Staker Name Role Phone Dawson Millard MD, Clayton Primary Care Provide Glenn Mary Jr Unavailable Encounters Encounter Location Date Provider Diagnosis [facility] [address] [place] [address] 09/13/2023 Glenn Monroy Jr Plan Of Treatment No Information Progress Notes * ROBB PADRONDOB:1945 ( 80 yo M)Acc No.[id number]:09/13/2023 Progress Notes Patient: ROBB GOZNALEZ Provider: Rich Monroy MD :1945 A ge:78 Y S ex:Male Date:09/13/2023 Address:[address], [place] [id number] Pcp:Clayton valdovinos MD Subjective: * Chief Complaints: * * Medical History: Objective: * Vitals: Assessment: Plan: * Treatment: * * The named appointment provid er may or may not be the originator of this progress note, and it is not deemed complete until electronically signed by the appointment provider. Sign off status: Pending * Provider: Rich Monroy MD Date: 0 09/13/2023 Generated for Santosh dillard/Codie/Manishaitting on: 03/30/2024 09:54 AM EST
--- OUTSIDE RECORDS SUMMARY | 2023-09-22 04:20 | XMS_ITS ---
Author Organization [facility] Address [address] [place] [phone] Care Team Providers Care Benefits Specialist Name Role Phone Dawson Millard MD, Clayton Primary Care Provide r Glenn Thompson Jr Unavailable [phone] REASON FOR VISIT gerd Problems Problem Type SNOMED Code ICD Code Onset Dates Problem Status W/U Status Risk Notes Problem Gastro-esophagea l reflux disease without esophagitis (012165463) Gastro-esophage al reflux disease without esophagitis (K21.9) Active confirmed Encounters Encounter Location Date Provider Diagnosis [facility] [place] [address] [place] [id number] 09/22/2023 Glenn Monroy Jr Gastro-esophageal reflux disease without esophagitis K21.9 Assessments Encounter Date Diagnosis (ICD Code) Assessment Notes Treatment Notes Treatment Clinical Notes Section Notes 09/22/2023 Gastro-esophagea l reflux disease without esophagitis (ICD-10 - K21.9) Plan Of Treatment No Information Progress Notes * ROBB PADRONDOB:1945 ( 80 yo M)Acc No.[id number]:09/22/2023 EGD/MAC Patient: ROBB GONZALEZ Provider: Rich Monroy MD :1945 A ge:78 Y S ex:Male Date:09/22/2023 Address:[address] [id number] Pcp:Clayton valdovinos MD Subjective: * Chief Complaints: * 1 . Gerd. * Medical History: Objective: * Vitals: Assessment: * Assessment: 1. G manisha-esophageal reflux disease without esophagitis - K21.9 (Primary) Plan: * Treatment: * Procedure Codes: 4 3239 UPPER GI ENDOSCOPY, BIOPSY * * The named appointment provid er may or may not be the originator of this progress note, and it is not deemed complete until electronically signed by the appointment provider. Sign off status: Pending * Provider: Rich Monroy MD Date: 0 09/22/2023 Generated for Santosh dillard/Codie/Manishaitting on: 03/30/2024 09:54 AM EST
--- OUTSIDE RECORDS SUMMARY | 2024-09-03 03:20 | XMS_ITS ---
Author Organization [facility] Address [address] [place] [address] Care Team Providers Care Brick Off Bearer Name Role Phone Dawson Millard MD, Clayton Primary Care Provide r Glenn Thompson Jr Unavailable [phone] REASON FOR VISIT diverticulitis Encounters Encounter Location Date Provider Diagnosis [facility] [place] [address] [place] [phone] 09/03/2024 Glenn Monroy Jr Plan Of Treatment No Information Progress Notes * PADRONROBBDOB:1945 ( 80 yo M)Acc No.[id number]:09/03/2024 COLON WITH MAC Patient: ROBB GONZALEZ Provider: Rich Monroy MD :1945 A ge:79 Y S ex:Male Date:09/03/2024 Address:[address] [place] [facility] Pcp:Clayton valdovinos MD Subjective: * Chief Complaints: * 1 . Diverticulitis. * Medical History: Objective: * Vitals: Assessment: Plan: * Treatment: * * The named appointment provid er may or may not be the originator of this progress note, and it is not deemed complete until electronically signed by the appointment provider. Sign off status: Pending * Provider: Rich Monroy MD Date: 0 09/03/2024 Generated for Santosh dillard/Codie/eTdiandrasmitting on: 03/30/2024 08:40 AM EST
--- NOTE | ~2025-01-28 | XR_ITS ---
EXAMINATION: XR CHEST CLINICAL INFORMATION: PNA 05/2024, recheck for resolution COMPARISON: 09/19/2024. 06/15/2024. TECHNIQUE: 2 views of the chest were obtained. FINDINGS: The cardiac, hilar, and mediastinal contours are normal. Aortic mural calcifications. The lungs are clear bilaterally. There is no pneumothorax or pleural effusion. There is no focal osseous or soft tissue abnormality. XR/XR chest 2V IMPRESSION: No active pulmonary disease. No interval change from 09/19/2024. Electronically signed by: Peter Briggs MD 01/28/2025 09:28 AM KERRY
--- OUTSIDE RECORDS SUMMARY | 2025-01-28 08:40 | XMS_ITS | Encounter Summary ---
Author Organization [employer] Address [address] [place] [address] Care Team Providers Care Expanded Function Dental Assistant Name Role Phone Clayton Lyon MD Primary Care Provide r Chris Leal MD Unavailable [phone] Reason for Visit * Reason Comments Nasal Congestion Cough Encounter Details Date Type Department Care Team ([facility] Contact Info) Description 01/28/2025 8:40 AM EST Office Visit [facility] [address] [place] [address] Acute cough (Primary Dx); Sore throat; Restrictive lung disease; Bronchitis Social History Tobacco Use Types Packs/Day Years Used Date Smoking Tobacco: Former Cigarettes Q uit: 03/21/2001 Passive Smoke Exposure: Past Smokeless Tobacco: Former Alcohol Use Standard Drinks/Week Comments Never 0 (1 standard drink = 0.6 oz pur e alcohol) Depression Answer Date Recorded Patient Health Questionnaire-9 Score 5 01/22/2025 Patient Health Questionnaire-9 Score 5 01/22/2025 Last PHQ-9: Questionnaire Data Not on file 1 Housing Stability Answer Date Recorded What is [...] Answer Date Recorded Patient Health Questionnaire-2 Score 2 01/22/2025 Internet Access Answer Date Recorded Internet Access [...] Sign Reading Time Taken Comments Blood Pressure 114/72 01/28/2025 9:06 AM EST Pulse 63 01/28/2025 9:06 AM EST Temperature 36.8 C (98.2 F) 01/28/2025 9:06 AM EST Respiratory Rate 22 01/28/2025 9:06 AM EST Oxygen Saturation 90% 01/28/2025 9:06 AM EST Inhaled Oxygen Concentration - - Weight 70.8 kg (156 lb) 01/28/2025 9:06 AM EST Height 170.2 cm (5' 7 ) 01/28/2025 9:06 AM EST Body Mass Index 24.43 01/28/2025 9:06 AM EST documented in this encounter Plan of Treatment Upcoming Encounters Date Type Department Care Team (Late st Contact Info) Description 04/08/2025 11:30 AM EST Office Visit [facility] [address] [place] [address] Clayton Lyon MD [address] [place] [address] 10/10/2025 9:30 AM EDT Medication Management [facility] [address] [place] [address] Ban Toribio, EunD [address] [place] [address] Scheduled Orders Name Type Priority Associated Diagnoses Orde r Schedule XR Chest 2 Views Imaging Routine Acute cough Expected: 01/28/2025, Expires: 01/28/2026 documented as of this encounter Procedures Procedure Name Priority Date/Time Associated Diagnosis Comments POC WARREN ID NOW STREP A Routine 01/28/2025 9:11 AM EST Sore throat POCT INFLUENZA A (ID NOW RAPID MOLECULAR) Routine 01/28/2025 9:10 AM EST Acute cough POCT COVID-19 AG WARREN ID NOW Routine 01/28/2025 9:10 AM EST Sore throat POCT INFLUENZA B (ID NOW RAPID MOLECULAR) Routine 01/28/2025 9:09 AM EST Acute cough documented in this encounter Results * POCT Rapid Strep A WARREN ID NOW (01/28/2025 9:11 AM EST) Pathologist [facility] Rapid Strep A Screen Negative Negative, None Detected QC Media Lot # [id number] Lot# Expiration Date Swab 01/28/2025 9:11 AM EST us Rakesh Butler MD POINT OF CARE TEST ENTER/EDIT OR DERABLES Final Result * POCT Rapid Covid-19 WARREN ID NOW (01/28/2025 9:10 AM EST) Pathologist [facility] Coronavirus Antigen PCR Negative Negative, Indeterminate, None Detected, Invalid, Specimen unsatisfactory for evaluation, Weakly Positive, 2+ QC Media Lot # [id number] Lot# Expiration Date Swab 01/28/2025 9:10 AM EST us Rakesh Butler MD POINT OF CARE TEST ENTER/EDIT OR DERABLES Final Result * POCT Rapid Influenza A WARREN ID NOW (01/28/2025 9:10 AM EST) Influenza A Negative Negative, Indeterminate [facility] QC Media Lot # [id number] [facility] Lot# Expiration Date [facility] Swab 01/28/2025 9:10 AM EST us Rakesh Butler MD POINT OF CARE TEST ENTER/EDIT OR DERABLES Final Result Performing Organization Address City/[facility]/ZIP Co de Phone Number [facility] [address] [place] [phone] * POCT Rapid Influenza B WARREN ID NOW (01/28/2025 9:09 AM EST) Influenza B Negative Negative, Indeterminate [facility] QC Media Lot # [id number] [facility] Lot# Expiration Date [facility] Swab 01/28/2025 9:09 AM EST Rakesh Butler MD POINT OF CARE TEST ENTER/EDIT OR DERABLES Final Result Performing Organization Address City/[facility] Co de Phone Number [facility] [address] [place] [phone] documented in this encounter Visit Diagnoses Diagnosis Acute cough- Primary Sore throat Acute pharyngitis Restrictive lung disease Other diseases of lung, not elsewhere classified Bronchitis Bronchitis, not specified as acute or chronic documented in this encounter Additional Health Concerns Assessment Noted Time PHQ-9 Depression Total Score: 5 01/23/20 25 5:46 PM EDT documented as of this encounter Care Teams Expanded Function Dental Assistant Relationship Specialty Start Date End Date Clayton Lyon MD [address] [place] [address] PCP - General Internal Medicine 11/12/13 Chris Leal MD [address] [place] [address] Cardiology 07/10/24 [facility] 08/18/21 documented as of this encounter
--- OUTSIDE RECORDS SUMMARY | 2025-01-28 09:54 | XMS_ITS | Encounter Summary ---
Author Organization [employer] Address [address] [facility] 7t [place] [address] Care Team Providers Care Machinery Mover Name Role Phone Clayton Lyon MD Primary Care Provide r Chris Leal MD Unavailable [phone] Encounter Details Date Type Department Care Team ([facility] st Contact Info) Description 12/26/2024 Refill [facility] [address] [place], [place] [phone] Clayton Lyon MD [address] [place] [address] Fatigue due to excessive exertion, sequela Social [...] Description 04/08/2025 11:30 AM EST Office Visit [facility] [address] [place] [address] Clayton Lyon MD [address] [place] [address] 10/10/2025 9:30 AM EDT Medication Management [facility] [address] [place] [address] Ban Toribio, PharmD [address] [place] [phone] documented as of this encounter Visit Diagnoses Diagnosis Fatigue due to excessive exertion, sequela documented in this encounter Additional Health Concerns Assessment Noted Time PHQ-9 Depression Total Score: 0 09/20/19 25 9:19 AM EDT documented as of this encounter Care Teams Machinery Mover Relationship Specialty Start Date End Date Clayton Lyon MD [address] [place] [phone] PCP - General Internal Medicine 11/12/13 Chris Leal MD [address] [place] [address] Cardiology 07/10/24 [facility] 08/18/21 documented as of this encounter
--- OUTSIDE RECORDS SUMMARY | 2025-01-28 09:54 | XMS_ITS | Encounter Summary ---
Author Organization [facility] Address [address] [facility] [address] [place] [phone] Phone Care Team Providers Care Color Checker Name Role Phone Clayton Chavez MD Primary Care Provide r Encounter Details Date Type Department Care Team (Late st Contact Info) Description 07/29/2024 Procedure Pass [facility] [address] [place] [address] Social History Tobacco Use Types Packs/Day Years [...] on filedocumented in this encounter Care Teams Color Checker Relationship Specialty Start Date End Date Clayton Chavez MD [email or web address] PCP - General Internal Medicine 07/29/24 documented as of this encounter Additional Source Comments The information contained in this document represents components of the legal health record. It is not the complete legal health record.[facility]
--- OUTSIDE RECORDS SUMMARY | 2025-01-28 09:54 | XMS_ITS | Encounter Summary ---
Author Organization [employer] Address [address] [facility] 7t [place] [address] Care Team Providers Care Underwater Roboticist Name Role Phone Clayton Lyon MD Primary Care Provide r Chris Leal MD Unavailable [phone] Reason for Visit * Reason Onset Date Comments Letter Request 01/23/2025 I called the pat ient, regarding his request for a letter for housing. He stated that he is requesting a two bedroom apartment on a first floor, or one with access to an elevator. He stated that he needs a two bedroom, because he has a wheelchair, and a walker, and has no room to store them in his current apartment. Encounter Details Date Type Department Care Team ([facility] st Contact Info) Description 01/23/2025 Telephone [facility] [address] [place] [address] Clayton Lyon MD [address] [place] [address] Letter Request (I called the patient, regarding his request for a letter for housing. He stated that he is requesting a two bedroom apartment on a first floor, or one with access to an elevator. He stated that he needs a two bedroom, because he has a wheelchair, and a walker, and has no room to store them in his current apartment.) Social History Tobacco Use Types Packs/Day Years [...] encounter Miscellaneous Notes * Telephone Encounter - Linda Dunlap [place] - 01/23/2025 9:31 AM EDT I called the patient, regarding his request for a letter for housing. He stated that he is requesting a two bedroom apartment on a first floor, or one with access to an elevator. He stated that he needs two bedrooms, because he has a wheelchair, and a walker, and has no room to store them in his current apartment. documented in this encounter Plan of Treatment Upcoming Encounters Date Type Department Care Team (Late st Contact Info) Description 04/08/2025 11:30 AM EST Office Visit [facility] [address] [place] [address] Clayton Lyon MD [address] [place] [address] 10/10/2025 9:30 AM EDT Medication Management [facility] [address] [place] [address] Ban Toribio PharmD [address] [place] [address] documented as of this encounter Visit Diagnoses Not on filedocumented in this encounter Additional Health Concerns Assessment Noted Time PHQ-9 Depression Total Score: 5 01/23/20 5:46 PM EDT documented as of this encounter Care Teams Underwater Roboticist Relationship Specialty Start Date End Date Clayton Lyon MD [address] [place] [address] PCP - General Internal Medicine 11/12/13 Chris Leal MD [address] [place] [address] Cardiology 07/10/24 [facility] 08/18/21 documented as of this encounter
--- OUTSIDE RECORDS SUMMARY | 2025-01-28 09:54 | XMS_ITS | Encounter Summary ---
Author Organization [employer] Address [address] [place] [address] Care Team Providers Care Line Cleaner Name Role Phone Clayton Lyon MD Primary Care Provide r Chris Leal MD Unavailable [phone] Encounter Details Date Type Department Care Team (Late st Contact Info) Description 03/07/2022 [facility] Health Information Management [address] [place] [address] [phone] Clayton Lyon MD [address] [place] [address] [phone] Social History Tobacco Use Types Packs/Day Years [...] Description 04/08/2025 11:30 AM EST Office Visit [facility] [address] [place] [address] [phone] Clayton Lyon MD [address] [place], [place] [phone] 10/10/2025 9:30 AM EDT Medication Management [facility] [address] [place] [address] [phone] Ban Toribio, PharmD [address] [place] [address] documented as of this encounter Procedures Procedure Name Priority Date/Time Associated Diagnosis Comments PSA, TOTAL Routine 12/05/2022 11:19 AM EDT STREP A NUCLEIC ACID Routine 05/30/2022 11:58 AM EST SARS COV2/INFLUENZA A/B AND RSV RNA QL NAAT Routine 05/30/2022 11:58 AM EST documented in this encounter Results * PSA,Total (12/05/2022 11:19 AM EDT) Prostate Specific Antigen 0.50 <0.05 - 4.0 ng/mL [facility] Comment:PSA methodology: Lolly Hammond i ChemiluminescentMicroparticle Immunoassay (CMIA) 12/05/2022 11:1 9 AM EDT 12/05/2022 11:19 AM EDT [facility] External Provider LAB BLO OD ORDERABLES Final Result [facility] [address] [place] [phone] * SARS-CoV-2 RNA, Influenza A/B, and RSV RNA, Ql NAAT (05/30/2022 11:58 AM EST) Influenza A PCR NEGATIVE Negative [facility] Influenza B PCR NEGATIVE Negative [facility] Resp Syncy Virus RNA Qual PCR NEGATIVE Negative [facility] SARS COV2 PCR NEGATIVE Negative [facility] SARS/Flu/RSV Note See Note [facility] Comment:All test results mus t [...] use by authorized laboratories.Testing performed on the [employer] GeneXpert utilizingreal-time RT-PCR.All SARS CoV2 and positive influenza A/B results arereported to [facility]. 05/30/2022 11:5 8 AM EST 05/30/2022 12:03 PM EST [facility] Exter nal Provider LAB MICROBIOLOGY - GENERAL ORDERABLES Final Result Performing Organization Address [facility] Co de Phone Number [facility] [address] [place] [phone] * Strep A Nucleic Acid (05/30/2022 11:58 AM EST) IDNOW SERIAL# [id number] [facility] Strep A Nucleic Acid Negative Negative [facility] Comment:All test results mus t be correlated with clinical findings.This test has not been evaluated for monitoring treatment ofinfection.Additional follow-up testing using the culture method isrequired if the result is negative and clinical symptomspersist, or in the event of an acute rheumatic feveroutbreak. 05/30/2022 11:5 8 AM EST 05/30/2022 12:03 PM EST [facility] Exter nal Provider LAB MICROBIOLOGY - GENERAL ORDERABLES Final Result Performing Organization Address [facility] Co de Phone Number [facility] [address] [place] [phone] documented in this encounter Visit Diagnoses Not on filedocumented in this encounter Care Teams Line Cleaner Relationship Specialty Start Date End Date Clayton Lyon MD [address] [place] [address] PCP - General Internal Medicine 11/12/13 Chris Leal MD [address] [place] [address] Cardiology 07/10/24 [facility] 08/18/21 documented as of this encounter
--- OUTSIDE RECORDS SUMMARY | 2025-01-28 09:54 | XMS_ITS | Encounter Summary ---
Author Organization [employer] Address [address] [place] [address] 7 [place] [address] Care Team Providers Care Meteorology Professor Name Role Phone Clayton Lyon MD Primary Care Provide r Chris Leal MD Unavailable [phone] Reason for Visit * Reason Onset Date Comments Medication Question 12/26/2024 Encounter Details Date Type Department Care Team ([facility] Contact Info) Description 12/26/2024 Telephone [facility] [address] [place], [place] [phone] Clayton Lyon MD [address] [place], [place] [phone] Medication Question Social History Tobacco Use Types [...] 11:12 AM EDT TC placed to the [facility] pharmacy who confirmed that the pt insurance will pay for a new [employer] Lite Blood Glucose Monitoring Kit. Will pend the mediation and route to PCP for review. * Telephone Encounter - Sonu Pittman - 12/26/2024 4:48 PM EDT Tc from pt requesting a call back regarding scripts for blood glucose monitor. Please contact pt at [phone]. (Indonesian Speaker) documented in this encounter Plan of Treatment Upcoming Encounters Date Type Department Care Team (Late st Contact Info) Description 04/08/2025 11:30 AM EST Office Visit [facility] [address] [place] [address] Clayton Lyon MD [address] [place], [place] [phone] 10/10/2025 9:30 AM EDT Medication Management [facility] [address] [place] [address] Ban Toribio, EunD [address] [place] [address] documented as of this encounter Visit Diagnoses Not on filedocumented in this encounter Additional Health Concerns Assessment Noted Time PHQ-9 Depression Total Score: 0 09/20/19 25 9:19 AM EDT documented as of this encounter Care Teams Meteorology Professor Relationship Specialty Start Date End Date Clayton Lyon MD [address] [place], [place] [phone] PCP - General Internal Medicine 11/12/13 Chris Leal MD [address] [place] [address] Cardiology 07/10/24 [facility] 08/18/21 documented as of this encounter
--- OUTSIDE RECORDS SUMMARY | 2025-01-28 09:54 | XMS_ITS | Encounter Summary ---
Author Organization [employer] Address [address] [facility] 7t [place] [address] Care Team Providers Care Correction Officer Reformatory Name Role Phone Clayton Lyon MD Primary Care Provide r Chris Leal MD Unavailable [phone] Reason for Visit * Reason Onset Date Comments ER Follow-up 08/31/2023 Encounter Details Date Type Department Care Team ([facility] Contact Info) Description 08/31/2023 Telephone [facility] [address] [place], [place] [phone] Clayton Lyon MD [address] [place], [place] [phone] ER Follow-up Social History Tobacco Use Types [...] Description 04/08/2025 11:30 AM EST Office Visit [facility] [address] [place] [phone] Clayton Lyon MD [address] [place] [address] 10/10/2025 9:30 AM EDT Medication Management [facility] [address] [place] [address] Ban Toribio, PharmD [address] [place] [address] documented as of this encounter Visit Diagnoses Not on filedocumented in this encounter Care Teams Correction Officer Reformatory Relationship Specialty Start Date End Date Clayton Lyon MD [address] [place] [phone] PCP - General Internal Medicine 11/12/13 Chris Leal MD [address] [place] [address] Cardiology 07/10/24 [facility] 08/18/21 documented as of this encounter
--- OUTSIDE RECORDS SUMMARY | 2025-01-28 09:54 | XMS_ITS | Patient Health Record ---
Author Organization [facility] Address [address] [place] [address] Care Team Providers Care Zumba Instructor Name Role Phone Dawson Millard MD, Clayton Primary Care Provide Glenn Mary Jr Unavailable [phone] Allergies Allergen (clinical drug ingredient) Drug/Non Drug [...] Duration) Notes Start Date End Date Status Valsartan 40 MG 1 tablet Orally Twice a day Active Non-Aspirin Pain Relief PRN (tylenol) Active metroNIDAZOLE 500 MG 1 tablet Orally Three times a day Active Amitriptyline HCl 10 MG TAKE 1 TABLET BY MOUTH AT BEDTIME Diagnosis Unavailable Oral; Duration: 30 Active Albuterol Active Multivitamin Adults - as directed Orally Active Apixaban 5 MG as directed Orally Active Meclizine HCl 25 MG 1 tablet as needed Orally Once a day; Duration: 30 day(s) Not-Taking Metoprolol Succinate 25 MG 1 capsule Orally Once a day; Duration: 30 day(s) Active Digoxin 125 MCG 1 tablet Orally Active metFORMIN HCl ER 500 MG 1 tablet with evening meal Orally Once a day Active Cefuroxime Axetil 500 MG 1 tablet Orally every 12 hrs Active Pantoprazole Sodium 40 MG 1 tablet Orally Twice daily; Duration: 30 days 11/24/2023 Active Myrbetriq 25 MG 1 tablet Orally Once a day; Duration: 30 day(s) Active Ventolin HFA 108 (90 Base) MCG/ACT 1 puff as needed Inhalation every 4 hrs Active traMADol HCl 50 MG as directed Orally Not-Taking Nitroglycerin 0.4 MG as directed Sublingual Active Immunizations Vaccine Route Administration Date Status Comme nts Influenza Unknown 12/25/2017 Administered Influenza Unknown 12/26/2018 Administered Influenza Unknown 01/15/2020 Administered Influenza Unknown 11/25/2020 Administered Influenza Unknown 01/17/2023 Administered Influenza Unknown 04/13/2022 Refused Influenza Unknown 07/08/2024 Refused Problems Problem Type SNOMED Code ICD Code Onset Dates Problem Status W/U Status Risk Notes Problem Colon cancer screening (863498438) Colon cancer screening (Z12.11) Active confirmed Problem Epigastric pain (75785494) Epigastric pain (R10.13) Active confirmed Problem Gastro-esophageal reflux disease without esophagitis (222493114) Gastro-esophageal reflux disease without esophagitis (K21.9) Active confirmed Problem Long-term current use of anticoagulant (317708199) terminal manager (current) use of anticoagulants (Z79.01) Active confirmed Problem History of polyp of colon (situation) (654943511) Personal history of colonic polyps (Z86.010) Active confirmed Problem Irritable bowel syndrome with diarrhea (102391929) Irritable bowel syndrome with diarrhea (K58.0) Active confirmed Problem Generalized abdominal pain (010261628) Generalized abdominal pain (R10.84) Active confirmed Problem Diverticulitis (11754943) Diverticulitis (K57.92) Active confirmed Problem Gastroesophageal reflux disease without esophagitis (075088497) Gastroesophageal reflux disease without esophagitis (K21.9) Active confirmed Problem History of polyp of colon (situation) (949283885) History of colon polyps (Z86.010) Active confirmed Problem Gastroesophageal reflux disease with esophagitis (disorder) (877137575) Gastroesophageal reflux disease with esophagitis without hemorrhage (K21.00) Active confirmed Vital Signs Temperature 97.5 degrees Fahrenheit 07/08/2024 Blood pressure diastolic 01 mm Hg 07/08/2024 Height 67 in 07/08/2024 Blood pressure systolic 001 mm Hg 07/08/2024 Weight 160 lbs 07/08/2024 BMI 25.06 kg/m2 07/08/2024 Encounters Encounter Location Date Provider Diagnosis [facility] [address] [place] [address] 07/08/2024 Glenn Monroy Jr Diverticulitis K57.92 and [facility] (current) use of anticoagulants Z79.01 [facility] [address] [place] [address] 05/30/2024 Glenncj Monroy Jr [facility] [address] [place] [address] 07/08/2024 Glenn Monroy Jr [facility] [address] [place] [address] 07/08/2024 Glenn Monroy Jr [facility] [address] [place] [address] 08/15/2024 Glenn Monroy Jr Assessments Encounter Date Diagnosis (ICD Code) Assessment Notes Treatment Notes Treatment Clinical Notes Section Notes 07/08/2024 [facility] (current) use of anticoagulants (ICD-10 - Z79.01) [...] Insured Coverage Start Date Coverage End Date [facility] [address] Attn Claims CIPRIANO Julio [id number] ROBB PADRON Self - patient is the [...]
--- OUTSIDE RECORDS SUMMARY | 2025-01-28 09:54 | XMS_ITS | Encounter Summary ---
Author Organization [employer] Address [address] [facility] [address] [facility] [address] [place] [address] Care Team Providers Care Mobile Home Installer Name Role Phone Clayton Lyon MD Primary Care Provide r Chris Leal MD Unavailable [phone] Encounter Details Date Type Department Care Team (Latest Contact Info) Description 01/28/2025 Travel Social History Tobacco Use Types Packs/Day [...] Description 04/08/2025 11:30 AM EST Office Visit [facility] [address] [place] [phone] Clayton Lyon MD [address] [place] [phone] 10/10/2025 9:30 AM EDT Medication Management [facility] [address] [place] [phone] Ban Toribio, PharmD [address] [place] [phone] documented as of this encounter Visit Diagnoses Not on filedocumented in this encounter Additional Health Concerns Assessment Noted Time PHQ-9 Depression Total Score: 5 01/23/20 25 5:46 PM EDT documented as of this encounter Care Teams Mobile Home Installer Relationship Specialty Start Date End Date Clayton Lyon MD [address] [place] [phone] PCP - General Internal Medicine 11/12/13 Chris Leal MD [address] [place] [address] Cardiology 07/10/24 [facility] 08/18/21 documented as of this encounter
--- OUTSIDE RECORDS SUMMARY | 2025-01-28 09:54 | XMS_ITS | Clinical Summary ---
Author Organization [employer] Address [address] [place] [address] [address] [place] [address] Care Team Providers Care Petal Cutter Name Role Phone Clayton Lyon MD Primary Care Provide r Chris Leal MD Unavailable [phone] Allergies Active Allergy Reactions Criticality Noted Date [...] swelling). 30 g 2 09/07/19 25 Active Entresto 24-26 MG tablet [...] DIRECTED 100 each 11 09/20/19 25 Active metoprolol succinate XL (Toprol-XL) 25 [...] 25 Active Blood Glucose Monitoring Suppl (FreeStyle [place] Lite) w/Device kitIndications:Ty pe 2 diabetes mellitus with hyperlipidemia (HCC) Test blood sugar daily 1 kit 01/03/20 25 Active Alcohol Swabs pads Use to clean area prior to checking blood sugar once daily 100 each 11 01/07/20 25 Active cetirizine (ZyrTEC) 10 MG tabletIndications :Seasonal allergies TAKE 1/2 TABLET BY MOUTH ONCE DAILY 15 tablet 3 01/18/20 25 Active albuterol (Ventolin HFA) 108 (90 Base) MCG/ACT inhalerIndication s:Restrictive lung disease Inhale 2 puffs every 4 (four) hours if needed for wheezing. 18 g 1 01/29/20 25 Active albuterol (2.5 MG/3ML) 0.083% nebulizer solutionIndicatio ns:Bronchitis INJECT 1 AMPULE USING A NEBULIZER EVERY 6 HOURS NEEDED FOR WHEEZING 90 mL 1 01/29/20 25 Active Spacer/Aero-Holdi ng Chambers (OptiChamber Vane) misc 1 each every 4 (four) hours if needed (asthma). 1 each 01/29/20 25 Active acetaminophen (Tylenol) 500 MG tablet Take 1 tablet (500 mg) by mouth every 6 (six) hours if needed for moderate pain or fever. 40 tablet 01/29/20 25 Active Blood Glucose Monitoring Suppl (BlueData Software Lite) w/Device kit USE FOR TEST BLOOD SUGAR EVERY DAY 05/28/19 22 2024 Discontinued(R eorder (will not trigger notification to Pharmacy)) albuterol (2.5 MG/3ML) 0.083% nebulizer solutionIndicatio ns:Bronchitis INJECT 1 AMPULE USING A NEBULIZER EVERY 6 HOURS NEEDED FOR WHEEZING 90 mL 1 09/07/19 25 2024 Discontinued(R eorder (will not trigger notification to Pharmacy)) cetirizine (ZyrTEC) 10 MG tabletIndications :Seasonal allergies Take 0.5 tablets (5 mg) by mouth Once per day. 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 EKG and Trop negative on [...] A.Fib with RVR. Under the care of Nuclear Medicine Tech Dr. Leal who has recommended Cardioversion, done 08/18/2024, unfortunately went back to Afib. Seen by Cardiology 09/09/2024 who recommended ablation tat [facility] Pt is now S/p Ablation 10/24/2024 Last seen by Cardiology 12/11/2024 Assessment & Plan (09/19/2024 9:27 AM EDT): Pt here for a follow up, recently hospitalized and diagnosed with A.Fib with RVR. Under the care of Nuclear Medicine Tech Dr. Leal who has recommended Cardioversion, done 08/18/2024, unfortunately went back to Afib. Seen by Cardiology 09/09/2024 who now recommended ablation to be scheduled at [facility] Assessment & Plan (08/13/2024 9:10 AM EDT): Pt recently hospitalized and diagnosed with A.Fib with RVR. Under the care of Nuclear Medicine Tech Dr. Leal who has recommended Cardioversion Diverticulosis [...] (11/01/2022 10:24 AM EDT): Pt seen by [facility] [facility] Dr Garcia He reviewed his laboratory results That included: CRP, RF, ESR and DAVIE were all Normal His assessment was that patient had fibromyalgia Right hand pain 11/01/2022 Assessment & Plan (02/14/2023 10:24 AM EST): Patient with painful right index finger, difficulty bending it. Seen at [facility] received steroid injections with good results 11/24/2022 Assessment & Plan (11/01/2022 10:25 AM EDT): Patient with painful right index finger, difficulty bending it. Seen in the past at [facility] received steroid injections with good results Pt would like to go back Grade II hemorrhoids 11/01/2022 Assessment & Plan (02/14/2023 10:24 AM EST): Evaluated by Dr Carney 10/2022 opted for conservative measures Assessment & Plan (11/01/2022 10:32 AM EDT): Patient with c/o BRBPR Exam indicative of hemorrhoids Plan: Increase fluid, fiber in diet Proctosl H Referral to [facility] care 08/02/2022 Assessment & Plan (12/17/2024 9:44 [...] EST): Pt seen in the ER at [facility] yesterday with cough, diagnosed with bronchitis. Treated with Prednisone, Benzonatate and a z-pack, Chest x-ray was negative Arthralgia 05/12/2022 Assessment & Plan (05/30/2022 12:49 PM EST): Televisit Pt seen by Dr. Enrique at our [facility] with c/o arthralgias, worse [...] shoulder pain. Seen in the past at [facility], last seen 02/27/2019 received a [...] Clinical correlation recommended. Pt was seen by Computer [employer] Analyst 08/2018 who thought this was due to [...] Clinical correlation recommended. Pt was seen by [employer]st 08/2018 who thought this was due to [...] Dr Monroy 5 yr f/u Cerebrovascular accident ([facility]) 07/10/2013 Chronic headache disorder 03/22/2013 Assessment & [...] of his LS spine done showed: 1. Qpjx-kj-phlyjxsl loss of disc height at L4-L5 with a right paracentral disc extrusion resulting in mass effect upon the right L5 nerve root. Mild central canal stenosis. Broad-based left lateral disc protrusion and endplate spurring abutting the exiting left L4 nerve root. Klqh-cj-pdvhbyyr bilateral foraminal narrowing. 2. Mild spondylitic changes [...] organization. Date Type Department Care Team Description 01/28/2025 8:40 AM EST Office Visit [facility] [address] [place] [phone] Acute cough (Primary Dx); Sore throat; Restrictive lung disease; Bronchitis 01/28/2025 Travel 01/23/2025 Telephone [facility] [address] [place] [phone] Clayton Lyon MD Letter Request (I called the patient, regarding his request for a letter for housing. He stated that he is requesting a two bedroom apartment on a first floor, or one with access to an elevator. He stated that he needs a two bedroom, because he has a wheelchair, and a walker, and has no room to store them in his current apartment.) 01/18/2025 Telephone [facility] [address] [place] [phone] Clayton Lyon MD February01/17/[address] [address] Clayton Lyon MD Seasonal allergies 01/06/2025 10:30 AM EDT Clinical Support [facility] [address] [facility] [place] [address] Lisa Cheney RN Laceration of left upper extremity, initial encounter 01/06/2025 Travel 01/03/2025 Refill [facility] [address] [facility] [place] [address] Clayton Lyon MD 01/02/2025 Orders Only [facility] [address] [facility] [place] [address] Clayton Lyon MD 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) (Primary Dx) 12/31/2024 Telephone [facility] [address] [facility] [place] [address] Clayton Lyon MD ER Follow-up 12/26/2024 Telephone [facility] [address] [facility] [place] [address] Clayton Lyon MD Medication Question 12/26/2024 Refill [facility] [place] [address] Clayton Lyon MD Fatigue due to excessive exertion, sequela 12/26/2024 Refill [facility] [address] [place], [place] [phone] Julia Beckwith MD Fatigue due to excessive exertion, sequela 12/24/2024 11:00 AM EDT Office Visit [facility] [address] [place] [phone] Josselyn Enrique MD Primary insomnia (Primary Dx); Anxiety 12/24/2024 Travel 12/24/2024 Telephone [facility] [address] [place] [address] Clayton Lyon MD ER Follow-up 12/23/2024 Orders Only GENERIC EXTERNAL DATA DEPARTMENT Provider, Generic External Data 12/20/2024 Refill [facility] [address] [place] [address] Jennie Zhu DO 12/17/2024 10:00 AM EDT Office Visit [facility] [address] [place] [phone] Clayton Lyon MD 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) ([facility]/HCC) (Primary Dx); Paroxysmal atrial fibrillation ([facility]); Chronic systolic heart failure ([facility]); Essential hypertension; Hypercholesterolemia; Preventative health care; Primary insomnia; Encounter for immunization 12/17/2024 Travel 12/16/2024 Telephone [facility] [address] [place] [address] Clayton Lyon MD chart prep 12/11/2024 Telephone [facility] [address] [place] [address] Clayton Lyon MD Nurse Triage 12/07/2024 Refill [facility] [address] [place] [address] Clayton Lyon MD Restrictive lung disease 11/27/2024 Telephone [facility] [address] [place] [address] Clayton Lyon MD Durable Medical Equipment 11/21/2024 Telephone [facility] [address] [place] [address] Clayton Lyon MD Call Back Request from [...] Mass Index 24.43 01/28/2025 9:06 AM EST Plan of Treatment Upcoming Encounters Date Type Department Care Team (Late st Contact Info) Description 04/08/2025 11:30 AM EST Office Visit [facility] [address] [place] [phone] Clayton Lyon MD [address] [place] [address] 10/10/2025 9:30 AM EDT Medication Management [facility] [address] [place] [address] Ban Toribio, PharmD [address] [place] [address] Health Maintenance Due Date Last Done Comments Eye Exam 01/11/1955 COVID-19 Vaccine ( season) 2024 04/27/2021, 08/29/2020, 08/01/2020 Diabetes: Foot Exam 12/11/2024 12/12/2023, 12/12/2023, 12/12/2023 Diabetes: Urine Protein Screening 12/13/2024 12/14/2023, 04/04/2022, 06/10/2021 Alcohol/Substance Use Screening 03/07/2025 03/07/2024 Diabetes: Hemoglobin A1C 03/18/20252 025, 07/01/2024, 03/07/2024, Additional history exists SDOH Screening 04/16/2025 04/16/2024 Lipid Panel 09/09/2025 09/09/2024, 11/25, 02/14/2023, Additional history exists Depression Screening 01/22/2026 01/22/2025, 01/23/20 25 Tobacco Screening 01/28/2026 01/28/2025 DTaP/Tdap/Td Vaccines (3 - Td or Tdap) [...] 01/28/2025 9:11 AM EST Sore throat POCT COVID-19 AG WARREN ID NOW Routine 01/28/2025 9:10 AM EST Sore throat POCT INFLUENZA A (ID NOW RAPID MOLECULAR) Routine 01/28/2025 9:10 AM EST Acute cough POCT INFLUENZA B (ID NOW RAPID MOLECULAR) Routine 01/28/2025 9:09 AM EST Acute cough SUTURE REMOVAL Routine 01/06/2025 10:17 AM EDT [...] Recently Relevant to Health Maintenance Results * POCT Rapid Strep A WARREN ID NOW (01/28/2025 9:11 AM EST) Pathologist [facility] Rapid Strep A Screen Negative Negative, None Detected QC Media Lot # [id number] Lot# Expiration Date Swab 01/28/2025 9:11 AM EST us Rakesh Butler MD POINT OF CARE TEST ENTER/EDIT OR DERABLES Final Result * POCT Rapid Influenza A WARREN ID NOW (01/28/2025 9:10 AM EST) Influenza A Negative Negative, Indeterminate [facility] QC Media Lot # [id number] [facility] Lot# Expiration Date [facility] Swab 01/28/2025 9:10 AM EST us Rakesh Butler MD POINT OF CARE TEST ENTER/EDIT OR DERABLES Final Result Performing Organization Address City/State/[facility] Co de Phone Number [facility] [address] [place] [phone] * POCT Rapid Covid-19 WARREN ID NOW (01/28/2025 9:10 AM EST) Coronavirus Antigen PCR Negative Negative, Indeterminate, None Detected, Invalid, Specimen unsatisfactory for evaluation, Weakly Positive, 2+ QC Media Lot # [id number] Lot# Expiration Date , Swab 01/28/2025 9:10 AM EST us Rakesh Butler MD POINT OF CARE TEST ENTER/EDIT OR DERABLES Final Result * POCT Rapid Influenza B WARREN ID NOW (01/28/2025 9:09 AM EST) Influenza B Negative Negative, Indeterminate [facility] QC Media Lot # [id number] [facility] Lot# Expiration Date [facility] Swab 01/28/2025 9:09 AM EST us Rakesh Butler MD POINT OF CARE TEST ENTER/EDIT OR DERABLES Final Result [facility] [address] [place] [phone] * Suture Removal (01/06/2025 10:17 AM EDT) Lisa Godoy RN - 01/06/2025 10:17 AM EDT Lisa Cheney RN 01/06/2025 10:32 AM Suture Removal Date/Time: 01/06/2025 10:17 AM Performed by: Lisa Cheney RN Authorized by: Clayton Millard MD Consent: Consent obtained: Verbal Consent given by: Patient Risks, benefits, and alternatives were discussed: yes Risks discussed: Bleeding, wound separation and pain Alternatives discussed: No treatment [place] protocol: Patient identity confirmed: Verbally with patient [...] AM EDT Narrative 12/29/2024 12:31 AM EDT [address] [address] XRay Report Signed Patient: Shelton Davis MR#: [id number] : 1945 Acct:[id number] Age/Sex: 79 / M ADM Date: 12/28/24 Loc: HO.ED Attending Dr: Ordering Physician: Hillary Bailey Date of Service: 12/29/24 Procedure(s): XR forearm LT 2V Accession Number(s): [id number] cc: Clayton Chavez MD; Hillary Bailey Reason [...] signed by Ortega Olivares MD in OV> 12/29/2430 DD/ TD/TT: 12/29/2428 Mica Patcher: Procedure Note Donotuseinterpreter, Image - 12/29/2024 [place] [address] XRay Report Signed Patient: Mariah Davis#: [id number] : 6Acct:[id number] Age/Sex: 79 / MADM Date: 12/28/24 Loc: HO.ED Attending Dr: Ordering Physician: Hillary Bailey Date of Service: 12/29/24 Procedure(s): XR forearm LT 2V Accession Number(s): [id number] cc: Clayton Chavez MD; Hillary Bailey Reason [...] signed by Ortega Olivares MD in OV> 12/29/2430 DD/ TD/TT: 12/29/2428 Mica Patcher: [facility] External Provider IMG XR PROCEDURES Edited Result - Final * (ABNORMAL) Urinalysis, Complete, with Reflex to Culture (12/23/2024 10:53 AM EDT) Color Urine Yellow [facility] Appearance Urine Clear [facility] PH 6.5 5.0 - 9.0 [facility] Glucose Urine UA >=1000(A) Negative mg/dL [facility] Urine Blood Negative Negative [facility] Specific Leigh - Urine 1.015 1.005 - 1.025 [facility] Urine Protein Negative Neg-Trace mg/dL [facility] Urine Ketones Negative Negative mg/dL [facility] Nitrite Urine Negative Negative [facility] Leukocyte Esterase Urine Negative Negative [facility] RBC Urine 0-2 0 - 2 /HPF [facility] Urine WBC 0-5 0 - 5 /HPF [facility] Urine Squamous Epithelial Cell 0-2 0 - 2 /HPF [facility] Urine Bacteria None Seen None Seen [facility] Hyaline Casts, Urine 0-2 0 - 2 /LPF [facility] 12/23/2024 10:5 3 AM EDT 12/23/2024 11:15 AM EDT Narrative [facility] - 12/23/2024 11:24 AM EDT 1052Urine, Clean Catch us Generic External Data Provider LAB URINE ORDERAB LES Final Result [facility] [address] [place] [phone] * CBC auto differential (12/23/2024 9:46 AM EDT) White Blood Count 8.2 4.8 - 10.8 X10*3/uL [facility] Red Blood Count 5.00 4.60 - 5.80 X10*6/uL [facility] Hemoglobin 16.5 14.0 - 18.0 g/dl [facility] Hematocrit 48.6 42.0 - 52.0 % [facility] Mean Corpuscular Volume 97.2 80.0 - 98.0 fL [facility] Mean Corpuscular Hemoglobin 33.0 27.0 - 33.0 pg [facility] Mean Corpuscular HGB Conc 34.0 31.0 - 36.0 g/dl [facility] Red Cell Distribution Width 13.4 11.0 - 16.0 % [facility] Platelet Count 229 160 - 400 X10*3/uL [facility] Mean Platelet Volume 10.1 9.4 - 12.4 fL [facility] Neutrophils Percent Auto 57.7 45 - 73 % [facility] Imm Gran Pct Auto 0.4 0.0 - 0.4 % [facility] Lymphocytes Percent Auto 34.6 20 - 40 % [facility] Monocytes Percent Auto 6.6 2 - 11 % [facility] Eosinophils Percent Auto 0.5 0 - 4 % [facility] Basophils Percent Auto 0.2 0 - 2 % [facility] NRBC Pct Auto 0.0 0.0 - 0.2 /100WBC [facility] Neutrophils Absolute Auto 4.7 2.0 - 8.3 x10*3/uL [facility] Imm Gran Abs Auto 0.03 0.00 - 0.03 X10*3/uL [facility] Lymphocytes Absolute Auto 2.8 1.2 - 4.9 X10*3/uL [facility] Monocytes Absolute Auto 0.5 0.1 - 1.2 X10*3/uL [facility] Eosinophils Absolute Auto 0.0 0.0 - 0.4 X10*3/uL [facility] Basophils Absolute Auto 0.0 0.0 - 0.2 X10*3/uL [facility] NRBC Abs Auto 0.000 0.0 - 0.012 X10*3/uL [facility] 12/23/2024 9:46 AM EDT 12/23/2024 9:49 AM EDT us Generic External Data Provider LAB BLOOD ORDERAB LES Final Result [facility] [address] [place] [phone] * Magnesium (12/23/2024 9:46 AM EDT) Magnesium 2.3 1.6 - 2.6 mg/dL [facility] 12/23/2024 9:46 AM EDT 12/23/2024 9:49 AM EDT us Generic External Data Provider LAB BLOOD ORDERAB LES Final Result [facility] [address] [place] [address] [phone] * (ABNORMAL) Comprehensive Metabolic Panel (12/23/2024 9:46 AM EDT) Sodium 136 135 - 145 mmol/L [facility] Potassium 4.4 3.3 - 5.1 mmol/L [facility] Chloride 104 96 - 108 mmol/L [facility] Carbon Dioxide 25 22 - 29 mmol/L [facility] Anion Gap 11(L) 12 - 20 [facility] Urea Nitrogen (BUN) 18(H) 9 - 16 mg/dL [facility] Creatinine, Serum 1.17 0.5 - 1.4 mg/dL [facility] Creatinine Clr Calc Pharmacy 48.6 [facility] Comment:eGFR (calculated fro m the MDRD study equation) and eCrCl(calculated from the Cockcroft-Gault equation) are based ondifferent parameters and may not yield comparable results.If eCrCl result is absurd, please check patient'sheight/weight. Estimated Glomerular Filt Rate >60 [facility] Comment:Chronic Kidney Disea se: Estimated GFR < 60 mL/min/1.48m4Ectjse Kidney Disease: Estimated GFR < 15 mL/min/1.73m2 Glucose 103 60 - 115 mg/dL [facility] Calcium 9.7 8.4 - 10.2 mg/dL [facility] Bilirubin, Total 0.5 0.0 - 1.0 mg/dL [facility] Aspartate Amino Transferase 40(H) 5 - 37 U/L [facility] Alanine Aminotransferase 27 0 - 40 U/L [facility] Total Protein 7.5 6.5 - 8.0 g/dL [facility] Albumin Level 4.5 3.5 - 5.0 g/dL [facility] Alkaline Phosphatase 85 39 - 117 U/L [facility] 12/23/2024 9:46 AM EDT 12/23/2024 9:49 AM EDT Generic External Data Provider LAB BLOOD ORDERAB LES Final Result [facility] [address] [place] [address] [phone] * POCT glucose manually resulted (12/17/2024 10:02 AM EDT) Glucose Blood, POC 80 60 - 200 mg/dL QC Media Lot # [id number] Lot# Expiration Date 736 Blood Capillary blood specimen / Unknown 12/17/2024 10:02 AM EDT Clayton Millard MD POINT OF CARE TEST EN TER/EDIT ORDERABLES Final Result * (ABNORMAL) POCT glycosylated hemoglobin (Hgb A1c) (12/17/2024 10:00 AM EDT) Hemoglobin A1C 6.3(A) 4.0 - 5.7 % QC Media Lot # [id number] Lot# Expiration Date Blood Capillary blood specimen / Unknown 12/17/2024 10:00 AM EDT Clayton Millard MD POINT OF CARE TEST EN TER/EDIT ORDERABLES Final Result * (ABNORMAL) Lipid Panel, Standard (09/09/2024 9:27 AM EDT) Triglycerides 186(H) <150 mg/dL [facility] Comment:Desirable Triglyceri de: less than 150 mg/dLBorderline High Triglyceride 150-199 mg/dLHigh Triglyceride: 200-499 mg/dLVery High Triglyceride: greater than or equal to 5OO mg/dL Cholesterol 187 <200 mg/dL [facility] Comment:Desirable Cholestero l: less than 200 mg/dLBorderline High Cholesterol: 200-239 mg/dLHigh Cholesterol: greater than 239 mg/dL LDL Cholesterol Calculated 118(H) <100 mg/dL [facility] Comment:Desirable LDL: less than 100 mg/dLNear Optimal/Above Optimal LDL: 110- 129 mg/dLBorderline High LDL: 130-159 mg/dLHigh LDL: 160-189 mg/dLVery High LDL: greater than or equal to 190 mg/dL HDL Cholesterol 32(L) >40 mg/dL [facility] Comment:Desirable HDL: great er than 40 mg/dL Note: This HDL assay may give artificially low results in patients with liver disease. Blood Venous blood specimen / Unknown 09/09/2024 9:27 AM EDT 09/09/2024 11:20 AM EDT Clayton Millard MD LAB BLOOD ORDERABLES Final Result Performing Organization Address City/State/[facility] Co de Phone Number [facility] [address] [place] [phone] * Albumin, Random Urine W/Creatinine (12/14/2023 9:20 AM EDT) Creatinine, Urine 167.95 mg/dL [facility] Microalbumin Urine 8.0 mg/L [facility] Microalbum Creatinine Ratio Ur 4.7 <30 ug/mg cr [facility] Comment:Albumin/Creatinine R atio Reference Ranges: Normal: < 30 ug/mg creatinine Microalbuminuria: 30 - 300 ug/mg creatinineClinical Albuminuria: > 300 ug/mg creatinine Urine (Urine, Random) 12/14/2023 9:20 AM EDT 12/14/2023 11:13 AM EDT Clayton Millard MD LAB URINE ORDERABLES Final Result [facility] [address] [place] [phone] * Hepatitis C Antibody with Reflex to HCV, RNA, Quantitative, Real-Time PCR (04/04/2022 10:44 AM EST) Hepatitis C Antibody NON-REACT FRANCHESCA NON-REACT FRANCHESCA [facility] [place] [facility] Index <0.02 <1.00 [facility] [place] [facility] Comment: HCV antibody was non-reactive. There is no laboratory evidence of HCV infection. In most cases, no further action is required. However, if recent HCV exposure is suspected, a test for HCV RNA (test code 92514) is suggested. For additional information please refer to http://education.[employer]/faq/VUI78c4 (This link is being provided for informational/ educational purposes only.) Blood Venous blood specimen / Unknown 04/04/2022 10:44 AM EST 04/04/2022 10:44 AM EST Narrative [facility] - 04/05/2022 6:45 PM EST FASTING:YES FASTING: YES Clayton Millard MD LAB BLOOD ORDERABLES Final Result Performing Organization Address City/[facility] Co de Phone Number [facility] [address], [place] [address] [facility] [place] [employer] [address] [facility], ([address]) [place] [address] from Last 3 Months or Most Recently Relevant to Health Maintenance Insurance [facility] SKILLED NURSING OPTIONS (HMO D-SNP) * Guarantor: Shelton Davis Account Type Relation to Patient Date of Phone Billing Address Personal/Family Self [address] Care Teams Petal Cutter Relationship Specialty Start Date End Date Clayton Lyon MD [address] [place] [address] PCP - General Internal Medicine 11/12/13 Chris Leal MD [address] [place] [address] Cardiology 07/10/24 [facility] [place][Note 2] 08/18/21
--- OUTSIDE RECORDS SUMMARY | 2025-01-28 09:54 | XMS_ITS | Clinical Summary ---
Author Organization [facility] Address [address] [place] [address] Phone Care Team Providers Care Load Out Person Name Role Phone Clayton Chavez MD [...] file Insurance MEDICARE PART A & B [facility] MEDICARE PART A & B [facility] MEDICARE REPLACEMENT MEDICARE PART A & B [facility] MEDICARE REPLACEMENT MEDICARE PART A & B [facility] MEDICARE REPLACEMENT MEDICARE PART A & B Member Subscriber Plan / Payer (Ef fective 2010-Present) Name:Shelton Gonzalez Member ID:[id number] Relation to Subscriber:Self Name:Shelton Gonzalez Subscriber ID:[id number] Payer ID:[id number] Group ID:Not on file Type:Medicare Address: [employer] [address] [place] [id number] [place] [address] MEDICARE REPLACEMENT MEDICARE PART A & B [facility] MEDICARE REPLACEMENT Care Teams Load Out Person Relationship Specialty Start Date End Date Clayton Chavez MD [email or web address] PCP - General Internal Medicine 07/29/24 Additional Source Comments The information contained in this document represents components of the legal health record. It is not the complete legal health record.[facility]
--- OUTSIDE RECORDS SUMMARY | 2025-01-28 09:55 | XMS_ITS | Clinical Summary ---
Author Organization [facility] ity Address [address] [place] [address] Care Team Providers Care Religious Education Teacher Name Role Phone Clayton Chavez MD Primary [...] age to complete this topic Care Teams Religious Education Teacher Relationship Specialty Start Date End Date Clayton Chavez MD [address] [place] [address] [place] [address] PCP - General Internal Medicine 06/26/14
--- OUTSIDE RECORDS SUMMARY | 2025-01-28 09:55 | XMS_ITS | Encounter Summary ---
Author Organization [facility] Address [address] [place] [address] 7 [place] [address] Care Team Providers Care Furniture Packer Name Role Phone Clayton Lyon MD Primary Care Provide r Chris Leal MD Unavailable [phone] Encounter Details Date Type Department Care Team (Latest Contact Info) Description 10/16/2020 Abstract [facility] CONVERSIONS Dental, Provider, DDS Social History [...] Description 04/08/2025 11:30 AM EST Office Visit [facility] MEDICINE [address] [place] [address] Clayton Lyon MD [address] [place] [address] 10/10/2025 9:30 AM EDT Medication Management [facility] MEDICINE [address] [place] [address] Ban Toribio, PharmD [address] [place] [address] documented as of this encounter Visit Diagnoses Not on filedocumented in this encounter Care Teams Furniture Packer Relationship Specialty Start Date End Date Clayton Lyon MD [address] [place] [address] PCP - General Internal Medicine 11/12/13 Chris Leal MD [address] [place] [address] Cardiology 07/10/24 [facility] 08/18/21 documented as of this encounter
--- OUTSIDE RECORDS SUMMARY | 2025-01-28 09:55 | XMS_ITS | Encounter Summary ---
Author Organization [employer] Address [address] [place] [address] 7 [place] [address] Care Team Providers Care Oracle Manufacturing Consultant Name Role Phone Clayton Lyon MD Primary Care Provide r Chris Leal MD Unavailable [phone] Reason for Visit * Reason Onset Date Comments Hospital Follow-up 06/20/2024 Encounter Details Date Type Department Care Team ([facility] Contact Info) Description 06/20/2024 Telephone [facility] MEDICINE [address] [place], [place] [phone] Clayton Lyon MD [address] [place], [place] [phone] Hospital Follow-up Social History Tobacco Use Types [...] EDT Tc from pt returning phone call. [phone] * Telephone Encounter - Jade Zaidi - 06/20/2024 9:42 AM EDT Tc from pt requesting a HDF appt. Hospital: [facility] Date of admission: 06/15/2024 Discharge date: 06/19/2024 Diagnosed: Cardiomyopathy heart working 20 % severe heart failure Atrial fibrillation with RVR Pneumonia Diverticulitis *Send message to [place] Clinical Care Coordinators documented in this encounter Plan of Treatment Upcoming Encounters Date Type Department Care Team (Late st Contact Info) Description 04/08/2025 11:30 AM EST Office Visit [facility] MEDICINE [address] [place] [address] Clayton Lyon MD [address] [place] [address] 10/10/2025 9:30 AM EDT Medication Management [facility] [address] [place] [address] Ban Toribio, PharmD [address] [place] [address] documented as of this encounter Visit Diagnoses Not on filedocumented in this encounter Additional Health Concerns Assessment Noted Time PHQ-9 Depression Total Score: 0 12/12/19 24 10:28 AM EDT documented as of this encounter Care Teams Oracle Manufacturing Consultant Relationship Specialty Start Date End Date Clayton Lyon MD [address] [place], [place] [phone] PCP - General Internal Medicine 11/12/13 Chris Leal MD [address] [place] [address] Cardiology 07/10/24 [facility] 08/18/21 documented as of this encounter
== END 2025-01-28 09:10 | disposition home or self-care (01) ==
LOC: HO.HHCX 09:09
PROVIDERS: Visit Provider Emergency Medicine
DX: R05.1 Acute cough (principal); R50.9 Fever, unspecified; J18.9 Pneumonia, unspecified organism
CPT/HCPCS: 71046

== ENCOUNTER → 2025-01-28 09:10 | Outpatient (BNV) | payer OTHER, SELFPAY | PROVIDERS: Visit Provider Radiology Diagnostic Radiology | DX: R05.1 Acute cough (principal); Z87.09 Personal history of other diseases of the respiratory system | CPT/HCPCS: 71046 ==

== ENCOUNTER 2025-03-11 08:08 | Outpatient (REF) | payer OTHER, SELFPAY ==
--- OUTSIDE RECORDS SUMMARY | 2023-09-13 04:00 | XMS_ITS ---
Author Organization [facility] Address [address] [place] [address] Care Team Providers Care Flap Maker Name Role Phone Dawson Millard MD, [place] Primary Care Provide Glenn Mary Jr Unavailable Encounters Encounter Location Date Provider Diagnosis [facility] [address] [place] [address] 09/13/2023 Glenn Monroy Jr Plan Of Treatment No Information Progress Notes * ROBB PADRONDOB:1945 ( 80 yo M)Acc No.[id number]:09/13/2023 Progress Notes Patient: ROBB GONZALEZ Provider: Rich Monroy MD :1945 A ge:78 Y S ex:Male Date:09/13/2023 Address:[address], [place] [id number] Pcp:Clayton valdovinos MD * The named appointment provid er may or may not be the originator of this progress note, and it is not deemed complete until electronically signed by the appointment provider. Sign off status: Pending * Provider: Rich Monroy MD Date: 0 09/13/2023 Generated for Santosh dillard/Codie/Manishaitting on: 1 05/12/2024 08:23 AM EST
--- OUTSIDE RECORDS SUMMARY | 2023-09-22 04:20 | XMS_ITS ---
Author Organization [facility] Address [address] [place] [phone] Care Team Providers Care Filler Blender Name Role Phone Dawson Millard MD, Clayton Primary Care Provide r Glenn Thompson Jr Unavailable [phone] REASON FOR VISIT gerd Problems Problem Type SNOMED Code ICD Code Onset Dates Problem Status W/U Status Risk Notes Problem Gastro-esophagea l reflux disease without esophagitis (809530695) Gastro-esophage al reflux disease without esophagitis (K21.9) Active confirmed Encounters Encounter Location Date Provider Diagnosis [facility] [place] [address] [place] [id number] 09/22/2023 Glenn Monroy Jr Gastro-esophageal reflux disease without esophagitis K21.9 Assessments Encounter Date Diagnosis (ICD Code) Assessment Notes Treatment Notes Treatment Clinical Notes Section Notes 09/22/2023 Gastro-esophagea l reflux disease without esophagitis (ICD-10 - K21.9) Plan Of Treatment No Information Progress Notes * ROBB PADRONDOB:1945 ( 80 yo M)Acc No.[id number]:09/22/2023 EGD/MAC Patient: ROBB GONZALEZ Provider: Rich Monroy MD :1945 A ge:78 Y S ex:Male Date:09/22/2023 Address:[address], [id number] Pcp:Clayton valdovinos MD Subjective: * Chief Complaints: * G erd Assessment: * Assessment: 1. G manisha-esophageal reflux disease without esophagitis - K21.9 (Primary) Plan: * Procedure Codes: 4 3239 UPPER GI ENDOSCOPY, BIOPSY Billing Information: * Procedure Codes: 95876 UPPER GI ENDOSCOPY, BIOPSY. * The named appointment provid er may or may not be the originator of this progress note, and it is not deemed complete until electronically signed by the appointment provider. Sign off status: Pending * Provider: Rich Monroy MD Date: 0 09/22/2023 Generated for Santosh dillard/Codie/Manishaitting on: 1 05/12/2024 08:22 AM EST
--- OUTSIDE RECORDS SUMMARY | 2024-09-03 03:20 | XMS_ITS ---
Author Organization [facility] Address [address] [place] [address] Care Team Providers Care Air Purifier Servicer Name Role Phone Dawson Millard MD, Clayton Primary Care Provide r Glenn Thompson Jr Unavailable [phone] REASON FOR VISIT diverticulitis Encounters Encounter Location Date Provider Diagnosis [facility] [place] [address] [place], [place] [phone] 09/03/2024 Glenn Monroy Jr Plan Of Treatment No Information Progress Notes * PADRONROBBDOB:1945 ( 80 yo M)Acc No.[id number]:09/03/2024 COLON WITH MAC Patient: ROBB GONZALEZ Provider: Rich Monroy MD :1945 A ge:79 Y S ex:Male Date:09/03/2024 Address:[address], [place] [facility] Pcp:Clayton valdovinos MD Subjective: * Chief Complaints: * D iverticulitis * The named appointment provid er may or may not be the originator of this progress note, and it is not deemed complete until electronically signed by the appointment provider. Sign off status: Pending * Provider: Rich Monroy MD Date: 0 09/03/2024 Generated for Santosh dillard/Codie/Manishaitting on: 1 05/12/2024 08:22 AM EST
--- OUTSIDE RECORDS SUMMARY | 2025-03-11 08:23 | XMS_ITS | Data Portability ---
Author Organization [facility], [facility] Address [address] [place] [phone] Care Team Providers Care Data Management Consultant Name Role Phone HIM CCA OTHER Assessment [...] been taking tylenol and occasional oxycodone. VSS. 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, [...] Name and Address Organization Details Recorded Time 53486 lisinopri l medicatio n Not available Not available Not available 06/12/2024 06108 RxNorm Not Available [facility] - [facility] 5 13:30:19 15207 gabapenti n medicatio n Not available Not available Not available 06/12/2024 02529 RxNorm Not Available [facility] - [facility] 5 13:30:19 92287 Xanax medicatio n Not available Not available Not available 06/12/202428486 3 RxNorm Harriett Cortez MD [address] [place] [address],[address], [place], [phone], [employer] 5 14:56:19 77330 oxycodone medicatio n Not available Not available Not available 06/12/2024 7804 RxNorm Harriett Cortez MD [address] [place] [address],[address], [place], [phone], [employer] 5 14:56:24 86352 acetamino phen / oxycodone medicatio n Not available Not available Not available 06/12/2024 65578 3 RxNorm Not Available [facility] - production 15:37:05 Medications Name Sig Start [...] Vitals Date Recorded Respiratory rate Oxygen saturation Heart rate Body temperature Systolic And Diastolic Provider Name and Address Organization Details Last Updated DateTime 5 18 /min 96 % 63 /min 98.6 [degF] 145/96 mm[Hg] Not Available [facility] [employer] [facility] 5 14:47:09 Date Recorded Oxygen saturation Respiratory rate Body temperature Heart rate Systolic And Diastolic Provider Name and Address Organization Details Last Updated DateTime 4 99 % 16 /min 98.1 [degF] 67 /min 132/80 mm[Hg] Not Available [facility] [employer] 4 12:49:57 Social History None recorded. Functional Status None recorded. Mental Status None recorded. Family History Nothing Reported. Medical History No medical history recorded. Past Encounters Encounter ID Performer Location Encounter Start Date Encounter Closed Date Diagnosis/Indication Diagnosis SNOMED-CT Code Diagnosis ICD10 Code Diagnosis IMO Codes Diagnosis Note [id number] Destiny Patel MD Main - [facility] [address] [place] [phone] 09/01/2023 12:46:34 11/21/2023 14:15:14 Muscle pain 51430880 M79.10 [id number] [facility] [address] [place] [phone] 06/12/2024 14:44:38 06/12/2024 22:02:59 Hypertensive disorder [id number] I10 Evaluation in the field was performed by my manager quality systems colleague, as noted above, I provided real-time direction and supervisio n for this visit.This is a 79yo M with PMHx HTN seen at [facility] ED 05/25 for headache, dizziness, and [...] Leblanc Member ID Guarantor Name 06/12/2024 1 [facility] - DOS ON OR AFTER 2022 - DUAL ELIGIBLE - PENITENTIARY OPTIONS AND ONE CARE (MEDICARE REPLACEMENT/ADV ANTAGE - HMO) Shelton Davis [id number] Shelton Davis Notes Date Note Type Note Provider Name and Address Organization Details Recorded Time 09/01/2023 text/html HPI: ROSSY is a very pleasant 78 Ethiopian speaking y/o male with a PMH of, [...] no open wounds. ROSSY presented to [facility] on the day of the fall for [...] do so. MBR can be reached at [phone]. .................. .................. .................. .................. .................. .................. .................. ............... CRC Nurse Triage Notes (Rosy Corona): Comments: CRC RN did not require any additional information to process this visit. .................. .................. .................. .................. .................. .................. .................. ............... Patrol Man Note From Hitesh Araiza: Dispatched to the [...] .................. ............... Disposition: Fallon Patel MD [address] [facility], [place], [phone], [employer] 11/20/2023 19:41:13 06/12/2024 text/html [facility] Nurse Triage Notes (Laine Horowitz): Reason For [...] this time. Went to ER at [facility] on 05/25. Currently taking Metoprolol daily. Pitch Flaker instructed patient to increase dose to 2 tablets daily. Denies chest pain. Education provided on the response time and the member was advised to monitor reported s/s and seek emergency treatment if needed. .................. .................. .................. .................. .................. .................. .................. ............... Patrol Man Note From Nadine Bennett: Sent to a call for a pt complaining of hypertension. SC8 arrives on scene, pt is alert and oriented, airway is patent. Pt complains of hypertension along with the following intermittent symptoms since 05/25: headache, feeling off balance, sob, and nausea. Pt denies cp, vomiting, diarrhea, abd pain, fever, or loc. Pt states he was evaluated at [facility] ED on 05/25 and by Pitch Flaker on 06/07. Pt states his Metoprolol dosage was increased from 25mg to 50mg PO. (sitting) BP:145/96, P:63, RR:18, SpO2:96% RA, T:98.6; (standing) BP:147/101, P:63; Head: unremarkable; Lung sounds: clear bilaterally; Abdomen: soft, non-tender, no distention; Back: unremarkable; Extremities: unremarkable; Skin: pink, warm, dry; Pt requests transport to [facility] ED for re-evaluation. [facility] contacted and advised of pt's wishes. 911 called; [facility].. .................. .................. .................. .................. .................. .................. ............... [facility] Consulted: Harriett Cortez .................. .................. .................. .................. .................. .................. .................. ............... Disposition: Fulfilled Harriett Cortez MD [address] [facility], [place], [phone], [employer] 06/12/2024 15:48:07
--- OUTSIDE RECORDS SUMMARY | 2025-03-11 08:23 | XMS_ITS | Encounter Summary ---
Author Organization [facility] Address [address] [facility] [address] [place] [phone] Phone Care Team Providers Care Cargo Checker Name Role Phone Clayton Chavez MD Primary Care Provide r Encounter Details Date Type Department Care Team (Late st Contact Info) Description 07/29/2024 Procedure Pass [facility] [address] [place] [address] Social History Tobacco Use Types Packs/Day Years [...] on filedocumented in this encounter Care Teams Cargo Checker Relationship Specialty Start Date End Date Clayton Chavez MD [email or web address] PCP - General Internal Medicine 07/29/24 documented as of this encounter Additional Source Comments The information contained in this document represents components of the legal health record. It is not the complete legal health record.[facility]
--- OUTSIDE RECORDS SUMMARY | 2025-03-11 08:23 | XMS_ITS | Encounter Summary ---
Author Organization [employer] Address [address] [place] [address] Care Team Providers Care Payroll Master Name Role Phone Clayton Lyon MD Primary Care Provide r Chris Leal MD Unavailable [phone] Encounter Details Date Type Department Care Team (Late st Contact Info) Description 03/07/2022 [facility] Health Information Management [address] [place] [address] [phone] Clayton Lyon MD [address] [place] [address] [phone] Social History Tobacco Use Types Packs/Day Years [...] Description 04/08/2025 11:30 AM EST Office Visit [facility] MEDICINE [address] [place] [address] [phone] Clayton Lyon MD [address] [place], [place] [phone] 10/10/2025 9:30 AM EDT Medication Management [facility] [address] [place] [address] [phone] Ban Toribio, PharmD [address] [place] [address] documented as of this encounter Procedures Procedure Name Priority Date/Time Associated Diagnosis Comments PSA, TOTAL Routine 12/05/2022 11:19 AM EDT STREP A NUCLEIC ACID Routine 05/30/2022 11:58 AM EST SARS COV2/INFLUENZA A/B AND RSV RNA QL NAAT Routine 05/30/2022 11:58 AM EST documented in this encounter Results * PSA,Total (12/05/2022 11:19 AM EDT) Prostate Specific Antigen 0.50 <0.05 - 4.0 ng/mL [facility] Comment:PSA methodology: Lolly Hammond i ChemiluminescentMicroparticle Immunoassay (CMIA) 12/05/2022 11:1 9 AM EDT 12/05/2022 11:19 AM EDT [facility] External Provider LAB BLO OD ORDERABLES Final Result [facility] [address] [place] [phone] * SARS-CoV-2 RNA, Influenza A/B, and RSV RNA, Ql NAAT (05/30/2022 11:58 AM EST) Influenza A PCR NEGATIVE Negative [facility] Influenza B PCR NEGATIVE Negative [facility] Resp Syncy Virus RNA Qual PCR NEGATIVE Negative [facility] SARS COV2 PCR NEGATIVE Negative [facility] SARS/Flu/RSV Note See Note [facility] Comment:All test results mus [...] use by authorized laboratories.Testing performed on the [employer] GeneXpert utilizingreal-time RT-PCR.All SARS CoV2 and positive influenza A/B results arereported to [facility]. 05/30/2022 11:5 8 AM EST 05/30/2022 12:03 PM EST [facility] Exter nal Provider LAB MICROBIOLOGY - GENERAL ORDERABLES Final Result Performing Organization Address [facility] Co de Phone Number [facility] [address] [place] [phone] * Strep A Nucleic Acid (05/30/2022 11:58 AM EST) [employer]NOW SERIAL# [id number] [facility] Strep A Nucleic Acid Negative Negative [facility] Comment:All test results mus t be correlated with clinical findings.This test has not been evaluated for monitoring treatment ofinfection.Additional follow-up testing using the culture method isrequired if the result is negative and clinical symptomspersist, or in the event of an acute rheumatic feveroutbreak. 05/30/2022 11:5 8 AM EST 05/30/2022 12:03 PM EST [facility] Exter nal Provider LAB MICROBIOLOGY - GENERAL ORDERABLES Final Result Performing Organization Address [facility] Co de Phone Number [facility] [address] [place] [phone] documented in this encounter Visit Diagnoses Not on filedocumented in this encounter Care Teams Payroll Master Relationship Specialty Start Date End Date Clayton Lyon MD [address] [place] [phone] PCP - General Internal Medicine 11/12/13 Chris Leal MD [address] [place] [address] Cardiology 07/10/[address] [facility] 08/18/21 documented as of this encounter
--- OUTSIDE RECORDS SUMMARY | 2025-03-11 08:23 | XMS_ITS | Encounter Summary ---
Author Organization [employer] Address [address] [facility] 7t [place] [address] Care Team Providers Care Environmental Services Project Manager Name Role Phone Clayton Lyon MD Primary Care Provide r Chris Leal MD Unavailable Encounter Details Date Type Department Care Team ([facility] st Contact Info) Description 12/26/2024 Refill [facility] [address] [place], [place] [phone] Clayton Lyon MD [address] [place] [address] Fatigue due to excessive exertion, sequela Social [...] Description 04/08/2025 11:30 AM EST Office Visit [facility] [address] [place] [phone] Clayton Lyon MD [address] [place] [address] 10/10/2025 9:30 AM EDT Medication Management [facility] [address] [place] [phone] Ban Toribio, PharmD [address] [place] [phone] documented as of this encounter Visit Diagnoses Diagnosis Fatigue due to excessive exertion, sequela documented in this encounter Additional Health Concerns Assessment Noted Time PHQ-9 Depression Total Score: 0 09/20/19 25 9:19 AM EDT documented as of this encounter Care Teams Environmental Services Project Manager Relationship Specialty Start Date End Date Clayton Lyon MD [address] [place] [address] PCP - General Internal Medicine 11/12/13 Chris Leal MD [address] [place] [address] Cardiology 07/10/24 [facility] 08/18/21 documented as of this encounter
--- OUTSIDE RECORDS SUMMARY | 2025-03-11 08:23 | XMS_ITS | Clinical Summary ---
Author Organization [email or web address] [facility] ity Address [address] [place] [address] Care Team Providers Care Charging Operator Name Role Phone Clayton Chavez MD Primary [...] Depression Screening 03/27/2024 COVID-19 Vaccine (1 - 2024-2 6 season) 2024 Influenza Vaccine (#1) 2024 0, [...] age to complete this topic Care Teams Charging Operator Relationship Specialty Start Date End Date Clayton Chavez MD [address] [place] [address] [facility] [place] [phone] PCP - General Internal Medicine 06/26/14
--- OUTSIDE RECORDS SUMMARY | 2025-03-11 08:23 | XMS_ITS | Encounter Summary ---
Author Organization [employer] Address [address] [place] [address] 7 [place] [address] Care Team Providers Care Patient Advocate Name Role Phone Clayton Lyon MD Primary Care Provide r Chris Leal MD Unavailable Reason for Visit * Reason Onset Date Comments Medication Question 12/26/2024 Encounter Details Date Type Department Care Team ([facility] Contact Info) Description 12/26/2024 Telephone [facility]IC[facility] [address] [place], [place] [phone] Clayton Lyon MD [address] [place], [place] [phone] Medication Question Social History Tobacco Use Types [...] 11:12 AM EDT TC placed to the [facility] pharmacy who confirmed that the pt insurance will pay for a new [employer] Lite Blood Glucose Monitoring Kit. Will pend the mediation and route to PCP for review. * Telephone Encounter - Sonu Pittman - 12/26/2024 4:48 PM EDT Tc from pt requesting a call back regarding scripts for blood glucose monitor. Please contact pt at [phone]. (Algerian Speaker) documented in this encounter Plan of Treatment Upcoming Encounters Date Type Department Care Team (Late st Contact Info) Description 04/08/2025 11:30 AM EST Office Visit [facility] [address] [place] [address] Clayton Lyon MD [address] [place], [place] [phone] 10/10/2025 9:30 AM EDT Medication Management [facility] [address] [place] [address] Ban Toribio, EunD [address] [place] [address] documented as of this encounter Visit Diagnoses Not on filedocumented in this encounter Additional Health Concerns Assessment Noted Time PHQ-9 Depression Total Score: 0 09/20/19 25 9:19 AM EDT documented as of this encounter Care Teams Patient Advocate Relationship Specialty Start Date End Date Clayton Lyon MD [address] [place], [place] [phone] PCP - General Internal Medicine 11/12/13 Chris Leal MD [address] [place] [address] Cardiology 07/10/24 [facility] 08/18/21 documented as of this encounter
--- OUTSIDE RECORDS SUMMARY | 2025-03-11 08:23 | XMS_ITS | Encounter Summary ---
Author Organization [employer] Address [address] [place] [address] 7 [place] [address] Care Team Providers Care Loss Prevention Officer Name Role Phone Clayton Lyon MD Primary Care Provide r Chris Leal MD Unavailable [phone] Reason for Visit * Reason Onset Date Comments Hospital Follow-up 06/20/2024 Encounter Details Date Type Department Care Team ([facility] Contact Info) Description 06/20/2024 Telephone [facility] [address] [place], [place] [phone] Clayton Lyon MD [address], [place] [phone] Hospital Follow-up Social History Tobacco Use Types [...] EDT Tc from pt returning phone call. [phone] * Telephone Encounter - Jade Zaidi - 06/20/2024 9:42 AM EDT Tc from pt requesting a HDF appt. [place] [facility] [place]: 06/15/2024 Discharge date: 06/19/2024 Diagnosed: Cardiomyopathy heart working 20 % severe heart failure Atrial fibrillation with RVR Pneumonia Diverticulitis *Send message to [place] Clinical Care Coordinators documented in this encounter Plan of Treatment Upcoming Encounters Date Type Department Care Team (Late st Contact Info) Description 04/08/2025 11:30 AM EST Office Visit [facility] [address] [place] [address] Clayton Lyon MD [address] [place] [address] 10/10/2025 9:30 AM EDT Medication Management [facility] [address] [place] [address] Ban Toribio, PharmD [address] [place] [address] documented as of this encounter Visit Diagnoses Not on filedocumented in this encounter Additional Health Concerns Assessment Noted Time PHQ-9 Depression Total Score: 0 12/12/19 24 10:28 AM EDT documented as of this encounter Care Teams Loss Prevention Officer Relationship Specialty Start Date End Date Clayton Lyon MD [address], [place] [phone] PCP - General Internal Medicine 11/12/13 Chris Leal MD [address] [place] [address] Cardiology 07/10/24 [facility] 08/18/21 documented as of this encounter
--- OUTSIDE RECORDS SUMMARY | 2025-03-11 08:23 | XMS_ITS | Clinical Summary ---
Author Organization [facility] Address [address] [facility] [address] [place] [address] Phone Care Team Providers Care Synthetic Resin Operator Name Role Phone Clayton Chavez MD [...] file Insurance MEDICARE PART A & [facility] MEDICARE PART A & B [facility] MEDICARE REPLACEMENT MEDICARE PART A & B [facility] MEDICARE REPLACEMENT MEDICARE PART A & B [facility] MEDICARE REPLACEMENT MEDICARE PART A & B Member Subscriber Plan / Payer (Ef fective 2010-Present) Name:Shelton Gonzalez Member ID:[id number] Relation to Subscriber:Self Name:Shelton Gonzalez Subscriber ID:[id number] Payer ID:[id number] Group ID:Not on file Type:Medicare Address: [employer] [address] [place] [id number] [place] [address] MEDICARE REPLACEMENT MEDICARE PART A & B [facility] MEDICARE REPLACEMENT Care Teams Synthetic Resin Operator Relationship Specialty Start Date End Date Clayton Chavez MD [email or web address] PCP - General Internal Medicine 07/29/24 Additional Source Comments The information contained in this document represents components of the legal health record. It is not the complete legal health record.[facility]
--- OUTSIDE RECORDS SUMMARY | 2025-03-11 08:23 | XMS_ITS | Patient Health Record ---
Author Organization [facility] Address [address] [place] [address] Care Team Providers Care Manager Green Name Role Phone Dawson Millard MD, Clayton Primary Care Provide r Unavailable Glenn Monroy Jr Unavailable [phone] Allergies Allergen (clinical drug ingredient) Drug/Non Drug Allergy documented on EMR Reaction Allergy Type Onset Date Status zanac (uncoded) Unknown Allergy Acti ve acetaminophen / oxycodone Percocet Unknown Drug Allergy Active gabapentin Gabapentin Unknown Drug Allergy Activ e lisinopril Lisinopril Unknown Drug Allergy Activ e oxycodone Oxycodone Unknown Drug Allergy Active Reason For Referral No Information Medications Medication SIG (Take, Route, Frequency, Duration) Notes Start Date End Date Status Valsartan 40 MG Tablet 1 tablet Orally Twice a day Active Non-Aspirin Pain Relief PRN (tylenol) Active metroNIDAZOLE 500 MG Tablet 1 tablet Orally Three times a day Active Amitriptyline HCl 10 MG Tablet TAKE 1 TABLET BY MOUTH AT BEDTIME Diagnosis Unavailable Oral; Duration: 30 Active Albuterol Active Multivitamin Adults - Tablet as directed Orally Active Apixaban 5 MG Tablet as directed Orally Active Meclizine HCl 25 MG Tablet Chewable 1 tablet as needed Orally Once a day; Duration: 30 day(s) Not-Taking/P R N Metoprolol Succinate 25 MG Capsule ER 24 Hour Sprinkle 1 capsule Orally Once a day; Duration: 30 day(s) Active Digoxin 125 MCG Tablet 1 tablet Orally Active metFORMIN HCl ER 500 MG Tablet Extended Release 24 Hour 1 tablet with evening meal Orally Once a day Active Cefuroxime Axetil 500 MG Tablet 1 tablet Orally every 12 hrs Active Pantoprazole Sodium 40 MG Tablet Delayed Release 1 tablet Orally Twice daily; Duration: 30 days 11/24/2023 Active Myrbetriq 25 MG Tablet Extended Release 24 Hour 1 tablet Orally Once a day; Duration: 30 day(s) Active Ventolin HFA 108 (90 Base) MCG/ACT Aerosol Solution 1 puff as needed Inhalation every 4 hrs Active traMADol HCl 50 MG Tablet Soluble as directed Orally Not-Robel ing/WA N Nitroglycerin 0.4 MG Tablet Sublingual as directed Sublingual Active Immunizations Vaccine Route Administration Date Status Comme nts Influenza Unknown 12/25/2017 Administered Influenza Unknown 12/26/2018 Administered Influenza Unknown 01/15/2020 Administered Influenza Unknown 11/25/2020 Administered Influenza Unknown 04/13/2022 Refused Influenza Unknown 01/17/2023 Administered Influenza Unknown 07/08/2024 Refused Social History Social History Additional Details Category Social Info Options Details Miscellaneous: Marital status: Occupation: Retired Problems Problem Type SNOMED Code ICD Code Onset Dates Problem Status W/U Status Risk Notes Problem Colon cancer screening (087814785) Colon cancer screening (Z12.11) Active confirmed Problem Epigastric pain (01121023) Epigastric pain (R10.13) Active confirmed Problem Gastro-esophageal reflux disease without esophagitis (364318311) Gastro-esophageal reflux disease without esophagitis (K21.9) Active confirmed Problem Long-term current use of anticoagulant (286282201) 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 (Z79.01) Active confirmed Problem History of polyp of colon (situation) (664245242) Personal history of colonic polyps (Z86.010) Active confirmed Problem Irritable bowel syndrome with diarrhea (668033822) Irritable bowel syndrome with diarrhea (K58.0) Active confirmed Problem Generalized abdominal pain (733080757) Generalized abdominal pain (R10.84) Active confirmed Problem Diverticulitis (32046302) Diverticulitis (K57.92) Active confirmed Problem Gastroesophageal reflux disease without esophagitis (622839531) Gastroesophageal reflux disease without esophagitis (K21.9) Active confirmed Problem History of polyp of colon (situation) (642623918) History of colon polyps (Z86.010) Active confirmed Problem Gastroesophageal reflux disease with esophagitis (disorder) (440242005) Gastroesophageal reflux disease with esophagitis without hemorrhage (K21.00) Active confirmed Vital Signs Temperature 97.5 degrees Fahrenheit 07/08/2024 Blood pressure diastolic 01 mm Hg 07/08/2024 Height 67 in 07/08/2024 Blood pressure systolic 001 mm Hg 07/08/2024 Weight 160 lbs 07/08/2024 BMI 25.06 kg/m2 07/08/2024 Encounters Encounter Location Date Provider Diagnosis [facility] [address] [place] [address] 07/08/2024 Glenn Monroy Jr Diverticulitis K57.92 and 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 Z79.01 [facility] [address] [place] [address] 05/30/2024 Glenn Monroy Jr [facility] [address] [place] [address] 07/08/2024 Glenn Monroy Jr [facility] [address] [place] [address] 07/08/2024 Glenn Monroy Jr [facility] [address] [facility] [place] [address] 08/15/2024 Glenn Monroy Jr Assessments Encounter Date Diagnosis (ICD Code) Assessment Notes Treatment Notes Treatment Clinical Notes Section Notes 07/08/2024 snf (current) use of anticoagulants (ICD-10 - Z79.01) [...] Coverage Start Date Coverage End Date [facility] [address] Attn Claims [place] [id number] ROBB PADRON Self - patient is the insured Medical (General) History Medical History History ICD Code EGD 11/20/20, no Handley's esophagus or H . pylori. 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
--- OUTSIDE RECORDS SUMMARY | 2025-03-11 08:23 | XMS_ITS | Encounter Summary ---
Author Organization [employer] Address [address] [facility] 7t [place] [address] Care Team Providers Care Commercial Airline Pilot Name Role Phone Clayton Lyon MD Primary Care Provide r Chris Leal MD Unavailable [phone] Reason for Visit * Reason Onset Date Comments ER Follow-up 08/31/2023 Encounter Details Date Type Department Care Team ([facility] Contact Info) Description 08/31/2023 Telephone [facility] [address] [place], [place] [phone] Clayton Lyon MD [address] [place], [place] [phone] ER Follow-up Social History Tobacco Use Types [...] visit on : Date: 09/18/23 [place] [facility] [place] Patient advised will forward to team nurse for follow up documented in this encounter Plan of Treatment Upcoming Encounters Date Type Department Care Team (Late st Contact Info) Description 04/08/2025 11:30 AM EST Office Visit [facility] [address] [place] [address] Clayton Lyon MD [address] [place] [address] 10/10/2025 9:30 AM EDT Medication Management [facility] [address] [place] [phone] Ban Toribio, PharmD [address] [place] [address] documented as of this encounter Visit Diagnoses Not on filedocumented in this encounter Care Teams Commercial Airline Pilot Relationship Specialty Start Date End Date Clayton Lyon MD [address] [place] [phone] PCP - General Internal Medicine 11/12/13 Chris Leal MD [address] [place] [address] Cardiology 07/10/24 [facility] 08/18/21 documented as of this encounter
--- OUTSIDE RECORDS SUMMARY | 2025-03-11 08:23 | XMS_ITS | Encounter Summary ---
Author Organization [employer] Address [address] [place] [address] 7[address] [place] [address] Care Team Providers Care Jumpbasting Canvas Baster Name Role Phone Clayton Lyon MD Primary Care Provide r Chris Leal MD Unavailable [phone] Reason for Visit * Reason Onset Date Comments Med Refill 03/06/2025 Encounter Details Date Type Department Care Team ([facility] st Contact Info) Description 03/06/2025 Refill [facility] [address], [place] [phone] Clayton Lyon MD [address] [place], [place] [phone] Primary insomnia Social History Tobacco Use Types Packs/Day Years [...] as of this encounter Miscellaneous Notes * Addendum Note - Luci Ramirez RN - 03/06/2025 2:36 PM ESTAddended by: LUCI RAMIREZ on: 03/06/2025 02:36 PM Modules accepted: Orders * Telephone Encounter - Luci Ramirez RN - 03/06/2025 2:35 PM EST Telephone call placed to pharmacy. Spoke with Zuleyma who reports is able to override but needs new script in order to do so. PCP needs to send refill that states what happened that pt needs early refill. 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 Patient wants override with insurance because he really needs medication ML. documented in this encounter Plan of Treatment Upcoming Encounters Date Type Department Care Team (Late st Contact Info) Description 04/08/2025 11:30 AM EST Office Visit [facility] [address] [place] [phone] Clayton Lyon MD [address] [place] [address] 10/10/2025 9:30 AM EDT Medication Management [facility] [address] [place] [address] Ban Toribio PharmD [address] [place], [place] [phone] documented as of this encounter Goals Goal Patient Goal Type Associated Problems Recent Progress Patient-Stated? Author Help patients manage their type 2 diabetes Care Plan Help patients manage their type 2 diabetes No Destiny Ravi [facility] Weekly blood pressure task Care Plan Weekly blood pressure task [facility] Help patients manage their type 2 diabetes Care Plan Help patients manage their type 2 diabetes No Destiny Ravi [facility] Patient has chronic kidney disease Care Plan Patient has chronic kidney disease Destiny Granda [facility] Weekly blood pressure task Care Plan Weekly blood pressure task Destiny Granda [facility] Patient has chronic kidney disease Care Plan Patient has chronic kidney disease Destiny Granda [facility] Weekly blood pressure task Care Plan Weekly blood pressure task No Ladonna Lomas Weekly blood pressure task Care Plan Weekly blood pressure task No Ladonna Lomas Patient has chronic kidney disease Care Plan Patient has chronic kidney disease No Ladonna Lomas Patient has chronic kidney disease Care Plan Patient has chronic kidney disease No Ladonna Lomas documented as of this encounter Visit Diagnoses Diagnosis Primary insomnia Persistent disorder of initiating or maintaining sleep documented in this encounter Additional Health Concerns Active Problems Noted Date Diagnosed Date Help patients manage their type 2 diabetes 02/13 Weekly blood pressure task 02/13/2025 Help patients manage their type 2 diabetes 02/13 Patient has chronic kidney disease 02/13/2025 Weekly blood pressure task 02/13/2025 Patient has chronic kidney disease 02/13/2025 Weekly blood pressure task 03/06/2025 Weekly blood pressure task 03/06/2025 Patient has chronic kidney disease 03/06/2025 Patient has chronic kidney disease 03/06/2025 Assessment Noted Time PHQ-9 Depression Total Score: 5 01/23/20 25 5:46 PM EDT documented as of this encounter Care Teams Jumpbasting Canvas Baster Relationship Specialty Start Date End Date Clayton Lyon MD [address] [place] [address] PCP - General Internal Medicine 11/12/13 Chris Leal MD [address] [place] [address] Cardiology 07/10/[address] [facility] 08/18/21 documented as of this encounter
--- OUTSIDE RECORDS SUMMARY | 2025-03-11 08:23 | XMS_ITS ---
Assessment & Plan (08/13/2024 9:10 AM EDT): Pt recently hospitalized and diagnosed with A.Fib with RVR. Under the care of Intelligent Systems Engineer Dr. Leal who has recommended Cardioversion Diverticulosis [...] (11/01/2022 10:24 AM EDT): Pt seen by Insulation Board Calender Operator Dr Garcia He reviewed his laboratory results That included: CRP, RF, ESR and DAVIE were all Normal His assessment was that patient had fibromyalgia Right hand pain 11/01/2022 Assessment & Plan (02/14/2023 10:24 AM EST): Patient with painful right index finger, difficulty bending it. Seen at [facility] received steroid injections with good results 11/24/2022 Assessment & Plan (11/01/2022 10:25 AM EDT): Patient with painful right index finger, difficulty bending it. Seen in the past at [facility] received steroid injections with good results Pt would like to go back Grade II hemorrhoids 11/01/2022 Assessment & Plan (02/14/2023 10:24 AM EST): Evaluated by Dr Carney 10/2022 opted for conservative measures Assessment & Plan (11/01/2022 10:32 AM EDT): Patient with c/o BRBPR Exam indicative of hemorrhoids Plan: Increase fluid, fiber in diet Proctosl H Referral to Dr Carney [facility] care 08/02/2022 Assessment & Plan (12/17/2024 [...] EST): Pt seen in the ER at [facility] yesterday with cough, diagnosed with bronchitis. Treated with Prednisone, Benzonatate and a z-pack, Chest x-ray was negative Arthralgia 05/12/2022 Assessment & Plan (05/30/2022 12:49 PM EST): Televisit Pt seen by Dr. Enrique at our [facility] with c/o arthralgias, worse [...] shoulder pain. Seen in the past at [facility], last seen 02/27/2019 received a [...] Clinical correlation recommended. Pt was seen by Hygiene Coordinator 08/2018 who thought this was due [...] Clinical correlation recommended. Pt was seen by Hygiene Coordinator 08/2018 who thought this was due [...] Dr Monroy 5 yr f/u Cerebrovascular accident (CMS/HCC) 07/10/2013 Chronic headache disorder 03/22/2013 Assessment & [...] of his LS spine done showed: 1. Ldum-eh-txuebkga loss of disc height at L4-L5 with a right paracentral disc extrusion resulting in mass effect upon the right L5 nerve root. Mild central canal stenosis. Broad-based left lateral disc protrusion and endplate spurring abutting the exiting left L4 nerve root. Vtha-vz-gsvsfwqk bilateral foraminal narrowing. 2. Mild spondylitic changes [...] organization. Date Type Department Care Team Description 03/06/2025 Refill [facility] [address] [place] [address] Clayton Lyon MD Primary insomnia 01/28/2025 8:40 AM EST Office Visit [facility] [address], [place] [phone] Rakesh Butler MD Acute cough (Primary Dx); Sore throat; Restrictive lung disease; Bronchitis 01/28/2025 Travel 01/23/2025 Telephone [facility] [address] [place] [address] Clayton Lyon MD Letter Request (I called [...] them in his current apartment.) 01/18/2025 Telephone [facility] [place] [address] Clayton Lyon MD Nathanael recall 01/17/2025 Refill [facility] [place] [address] Clayton Lyon MD Seasonal allergies 01/06/2025 10:30 AM EDT Clinical Support [facility] [place] [address] Lisa Cheney RN Laceration of left upper extremity, initial encounter 01/06/2025 Travel 01/03/2025 Refill [facility] [place] [address] Clayton Lyon MD 01/02/2025 Orders Only [facility] [place] [address] Clayton Lyon MD 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) (Primary Dx) 12/31/2024 Telephone [facility] [place] [address] Clayton Lyon MD ER Follow-up 12/26/2024 Telephone [facility] [place] [address] Clayton Lyon MD Medication Question 12/26/2024 Refill [facility] [place] [address] Clayton Lyon MD Fatigue due to excessive exertion, sequela 12/26/2024 Refill [facility] [address] [place], [place] [phone] Julia Beckwith MD Fatigue due to excessive exertion, sequela 12/24/2024 11:00 AM EDT Office Visit [facility] [address] [place] [address] Josselyn Enrique MD Primary insomnia (Primary Dx); Anxiety 12/24/2024 Travel 12/24/2024 Telephone [facility] [address] [place] [address] Clayton Lyon MD ER Follow-up 12/23/2024 Orders Only GENERIC EXTERNAL DATA DEPARTMENT Provider, Generic External Data 12/20/2024 Refill [facility] [address] [place] [address] Jennie Zhu DO 12/17/2024 10:00 AM EDT Office Visit [facility] [address], [place] [phone] Clayton Lyon MD 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) (CMS/HCC) (Primary Dx); Paroxysmal atrial fibrillation (CMS/HCC); Chronic systolic heart failure (CMS/HCC); Essential hypertension; Hypercholesterolemia; Preventative health care; Primary insomnia; Encounter for immunization 12/17/2024 Travel 12/16/2024 Telephone [facility] [address] [place] [address] Clayton Lyon MD chart prep 12/11/2024 Telephone [facility] [address], [place] [phone] Clayton Lyon MD Nurse Triage from Last 3 Months Immunizations Immunization Administration [...] Description 04/08/2025 11:30 AM EST Office Visit [facility] [address] [place] [address] Clayton Lyon MD [address] [place] [address] 10/10/2025 9:30 AM EDT Medication Management [facility] [address] [place] [phone] Ban Toribio, PharmD [address] [place] [address] Health Maintenance Due Date Last Done Comments Eye Exam 01/11/1956 Alcohol/Substance Use Screening 1958 COVID-19 Vaccine ( season) 2024 04/27/2021, 08/29/2020, 08/01/2020 Diabetes: Foot Exam 12/11/2024 12/12/2023, 12/12/2023, 12/12/2023 Diabetes: Urine Protein Screening 12/13/2024 12/14/2023, 04/04/2022, 06/10/2021 Diabetes: Hemoglobin A1C 03/18/2025 025, 07/01/2024, 03/07/2024, [...] on patient's age to complete this topic Goals Goal Patient Goal Type Associated Problems Recent Progress Patient-Stated? Author Help patients manage their type 2 diabetes Care Plan Help patients manage their type 2 diabetes Destiny Granda LMHC Weekly blood pressure task Care Plan Weekly blood pressure task No Destiny Ravi LMHC Help patients manage their type 2 diabetes Care Plan Help patients manage their type 2 diabetes No Destiny Ravi LM[facility] Patient has chronic kidney disease Care Plan Patient has chronic kidney disease No Genia Lehman [facility] Weekly blood pressure task Care Plan Weekly blood pressure task No Genia Lehman [facility] Patient has chronic kidney disease Care Plan Patient has chronic kidney disease No Genia Lehman [facility] Weekly blood pressure task Care Plan Weekly blood pressure task No Ladonna Lomas Weekly blood pressure task Care Plan Weekly blood pressure task No Lomas, Ladonna Patient has chronic kidney disease Care Plan Patient has chronic kidney disease No Ladonna Lomas Patient has chronic kidney disease Care Plan Patient has chronic kidney disease No LomasLadonna Procedures Procedure Name Priority Date/Time Associated Diagnosis Comments XR CHEST 2 VIEWS Routine 01/28/2025 9:20 AM EST Pneumonia of both lungs due to infectious organism, unspecified part of lung POC WARREN ID NOW STREP A Routine [...] Maintenance Results * XR Chest 2 Views (01/28/2025 9:20 AM EST) Anatomical Region Laterality Modality Chest Radiographic Lisset ging 01/28/2025 9:20 AM EST Narrative 01/28/2025 9:31 [place] [address] XRay Report Signed Patient: Shelton Davis MR#: [id number] : 1945 Acct:[id number] Age/Sex: 80 / M ADM Date: 01/28/25 Loc: HO.HHCX Attending Dr: Rakesh Butler MD Ordering Physician: DAVID SCHNEIDER NP Date of Service: 01/28/25 Procedure(s): XR chest 2V Accession Number(s): [id number] cc: DAVID SCHNEIDER NP Reason for Exam: PNA 05/2024, recheck for resolution EXAMINATION: XR CHEST CLINICAL INFORMATION: PNA 05/2024, recheck for resolution COMPARISON: 09/19/2024. 06/15/2024. TECHNIQUE: 2 views of the chest were obtained. FINDINGS: The cardiac, hilar, and mediastinal contours are normal. Aortic mural calcifications. The lungs are clear bilaterally. There is no pneumothorax or pleural effusion. There is no focal osseous or soft tissue abnormality. XR/XR chest 2V IMPRESSION: No active pulmonary disease. No interval change from 09/19/2024. Electronically signed by: Peter Briggs MD 01/28/2025 09:28 AM EST RP Dictated By: Peter Briggs MD Signed By: <Electronically signed by Peter Briggs MD in OV> 01/28/25927 DD/ 9 TD/TT: 01/28/25923 Leather Sponger: Procedure Note Donotuseinterpreter, Image - 01/28/2025 [place] [address] XRay Report Signed Patient: Mariah Davis#: [id number] : 1945cct:[id number] Age/Sex: 80 / MADM Date: 01/28/25 Loc: HO.HHCX Attending Dr: Rakesh Butler MD Ordering Physician: DAVID SCHNEIDER NP Date of Service: 01/28/25 Procedure(s): XR chest 2V Accession Number(s): [id number] cc: DAVID SCHNEIDER NP Reason for Exam: PNA 05/2024, recheck for resolution EXAMINATION: XR CHEST CLINICAL INFORMATION: PNA 05/2024, recheck for resolution COMPARISON: 09/19/2024. 06/15/2024. TECHNIQUE: 2 views of the chest were obtained. FINDINGS: The cardiac, hilar, and mediastinal contours are normal. Aortic mural calcifications. The lungs are clear bilaterally. There is no pneumothorax or pleural effusion. There is no focal osseous or soft tissue abnormality. XR/XR chest 2V IMPRESSION: No active pulmonary disease. No interval change from 09/19/2024. Electronically signed by: Peter Briggs MD 01/28/2025 09:28 AM EST RP Dictated By: Peter Briggs MD Signed By: <Electronically signed by Peter Briggs MD in OV> 01/28/25927 DD/ 9 TD/TT: 01/28/25923 Leather Sponger: David FRY IMG XR PROCEDURES Final Result * POCT Rapid Strep A WARREN ID NOW (01/28/2025 9:11 AM EST) Pathologist [facility] Rapid Strep A Screen Negative Negative, None Detected QC Media Lot # [id number] Lot# Expiration Date Swab 01/28/2025 9:11 AM EST Rakesh Butler MD POINT OF CARE TEST ENTER/EDIT OR DERABLES Final Result * POCT Rapid Influenza A WARREN ID NOW (01/28/2025 9:10 AM EST) Pathologist [facility] Influenza A Negative Negative, Indeterminate [facility] QC Media Lot # [id number] [facility] Lot# Expiration Date [facility] Swab 01/28/2025 9:10 AM EST Rakesh Butler MD POINT OF CARE TEST ENTER/EDIT OR DERABLES Final Result [facility] [address] [place] [phone] * POCT Rapid Covid-19 WARREN ID NOW (01/28/2025 9:10 AM EST) [facility] Coronavirus Antigen PCR Negative Negative, Indeterminate, None Detected, Invalid, Specimen unsatisfactory for evaluation, Weakly Positive, 2+ QC Media Lot # [id number] Lot# Expiration Date , Swab 01/28/2025 9:10 AM EST us Rakesh Butler MD POINT OF CARE TEST ENTER/EDIT OR DERABLES Final Result * POCT Rapid Influenza B WARREN ID NOW (01/28/2025 9:09 AM EST) Influenza B Negative Negative, Indeterminate [facility] QC Media Lot # [id number] [facility] Lot# Expiration Date [id number] [facility] Swab 01/28/2025 9:09 AM EST us Rakesh Butler MD POINT OF CARE TEST ENTER/EDIT OR DERABLES Final Result [facility] [address] [place] [phone] * Suture Removal (01/06/2025 10:17 AM [...] separation and pain Alternatives discussed: No treatment [place] protocol: Patient identity confirmed: Verbally with patient [...] AM EDT Narrative 12/29/2024 12:31 AM EDT [address] [address] XRay Report Signed Patient: Shelton Davis MR#: [id number] : 1945 Acct:[id number] Age/Sex: 79 / M ADM Date: 12/28/24 Loc: HO.ED Attending Dr: Ordering Physician: Hillary Bailey Date of Service: 12/29/24 Procedure(s): XR forearm LT 2V Accession Number(s): [id number] cc: Clayton Chavez MD; Hillary Bailey Reason [...] MD in OV> 12/29/2430 DD/ TD/TT: 12/29/2428 Leather Sponger: Procedure Note Donotuseinterpreter, Image - 12/29/2024 [place] [address] XRay Report Signed Patient: Mariah Davis#: [id number] : 1945cct:[id number] Age/Sex: 79 / MADM Date: 12/28/24 Loc: .ED Attending Dr: Ordering Physician: Hillary Bailey Date of Service: 12/29/24 Procedure(s): XR forearm LT 2V Accession Number(s): [id number] cc: Clayton Chavez MD; Hillary Bailey Reason [...] in OV> 12/29/24 0031 DD/ TD/TT: 12/29/2428 Leather Sponger: [facility] External Provider IMG XR PROCEDURES Edited Result - Final * (ABNORMAL) Urinalysis, Complete, with Reflex to Culture (12/23/2024 10:53 AM EDT) Color Urine Yellow [facility] Appearance Urine Clear [facility] PH 6.5 5.0 - 9.0 [facility] Glucose Urine UA >=1000(A) Negative mg/dL [facility] Urine Blood Negative Negative [facility] Specific [place] - Urine 1.015 1.005 - 1.025 [facility] Urine Protein Negative Neg-Trace mg/dL [facility] Urine Ketones Negative Negative mg/dL [facility] Nitrite Urine Negative Negative [facility] Leukocyte Esterase Urine Negative Negative [facility] RBC Urine 0-2 0 - 2 /HPF [facility] Urine WBC 0-5 0 - 5 /HPF [facility] Urine Squamous Epithelial Cell 0-2 0 - 2 /HPF [facility] Urine Bacteria None Seen None Seen [facility] Hyaline Casts, Urine 0-2 0 - 2 /LPF [facility] 12/23/2024 10:5 3 AM EDT 12/23/2024 11:15 AM EDT Narrative [facility] - 12/23/2024 11:24 AM EDT 1052Urine, Clean Catch Generic External Data Provider LAB URINE ORDERAB LES Final Result [facility] [address] [place] [phone] * CBC auto differential (12/23/2024 9:46 AM EDT) White Blood Count 8.2 4.8 - 10.8 X10*3/uL [facility] Red Blood Count 5.00 4.60 - 5.80 X10*6/uL [facility] Hemoglobin 16.5 14.0 - 18.0 g/dl [facility] Hematocrit 48.6 42.0 - 52.0 % [facility] Mean Corpuscular Volume 97.2 80.0 - 98.0 fL [facility] Mean Corpuscular Hemoglobin 33.0 27.0 - 33.0 pg [facility] Mean Corpuscular HGB Conc 34.0 31.0 - 36.0 g/dl [facility] Red Cell Distribution Width 13.4 11.0 - 16.0 % [facility] Platelet Count 229 160 - 400 X10*3/uL [facility] Mean Platelet Volume 10.1 9.4 - 12.4 fL [facility] Neutrophils Percent Auto 57.7 45 - 73 % [facility] Imm Gran Pct Auto 0.4 0.0 - 0.4 % [facility] Lymphocytes Percent Auto 34.6 20 - 40 % [facility] Monocytes Percent Auto 6.6 2 - 11 % [facility] Eosinophils Percent Auto 0.5 0 - 4 % [facility] Basophils Percent Auto 0.2 0 - 2 % [facility] NRBC Pct Auto 0.0 0.0 - 0.2 /100WBC [facility] Neutrophils Absolute Auto 4.7 2.0 - 8.3 x10*3/uL [facility] Imm Gran Abs Auto 0.03 0.00 - 0.03 X10*3/uL [facility] Lymphocytes Absolute Auto 2.8 1.2 - 4.9 X10*3/uL [facility] Monocytes Absolute Auto 0.5 0.1 - 1.2 X10*3/uL [facility] Eosinophils Absolute Auto 0.0 0.0 - 0.4 X10*3/uL [facility] Basophils Absolute Auto 0.0 0.0 - 0.2 X10*3/uL [facility] NRBC Abs Auto 0.000 0.0 - 0.012 X10*3/uL [facility] 12/23/2024 9:46 AM EDT 12/23/2024 9:49 AM EDT us Generic External Data Provider LAB BLOOD ORDERAB LES Final Result Performing Organization Address City/[facility]/ZIP Co de Phone Number [facility] [address] [place] [phone] * Magnesium (12/23/2024 9:46 AM EDT) Magnesium 2.3 1.6 - 2.6 mg/dL [facility] 12/23/2024 9:46 AM EDT 12/23/2024 9:49 AM EDT us Generic External Data Provider LAB BLOOD ORDERAB LES Final Result Performing Organization Address [facility]/ZIP Co de Phone Number [facility] [address] [place] [phone] * (ABNORMAL) Comprehensive Metabolic Panel (12/23/2024 9:46 AM EDT) Sodium 136 135 - 145 mmol/L [facility] Potassium 4.4 3.3 - 5.1 mmol/L [facility] Chloride 104 96 - 108 mmol/L [facility] Carbon Dioxide 25 22 - 29 mmol/L [facility] Anion Gap 11(L) 12 - 20 [facility] Urea Nitrogen (BUN) 18(H) 9 - 16 mg/dL [facility] Creatinine, Serum 1.17 0.5 - 1.4 mg/dL [facility] Creatinine Clr Calc Pharmacy 48.6 [facility] Comment:eGFR (calculated fro m the MDRD study equation) and eCrCl(calculated from the Cockcroft-Gault equation) are based ondifferent parameters and may not yield comparable results.If eCrCl result is absurd, please check patient'sheight/weight. Estimated Glomerular Filt Rate >60 [facility] Comment:Chronic Kidney Disea se: Estimated GFR < 60 mL/min/1.19h0Aaliyr Kidney Disease: Estimated GFR < 15 mL/min/1.73m2 Glucose 103 60 - 115 mg/dL [facility] Calcium 9.7 8.4 - 10.2 mg/dL [facility] Bilirubin, Total 0.5 0.0 - 1.0 mg/dL [facility] Aspartate Amino Transferase 40(H) 5 - 37 U/L [facility] Alanine Aminotransferase 27 0 - 40 U/L [facility] Total Protein 7.5 6.5 - 8.0 g/dL [facility] Albumin Level 4.5 3.5 - 5.0 g/dL [facility] Alkaline Phosphatase 85 39 - 117 U/L [facility] 12/23/2024 9:46 AM EDT 12/23/2024 9:49 AM EDT us Generic External Data Provider LAB BLOOD ORDERAB LES Final Result Performing Organization Address City/State/[facility] Co de Phone Number [facility] [address] [place] [phone] * POCT glucose manually resulted (12/17/2024 10:02 AM EDT) Pathologist [facility] Glucose Blood, POC 80 60 - 200 mg/dL QC Media Lot # [id number] Lot# Expiration Date ,000,703 Blood Capillary blood specimen / Unknown 12/17/2024 10:02 AM EDT us Clayton Millard MD POINT OF CARE TEST EN TER/EDIT ORDERABLES Final Result * (ABNORMAL) POCT glycosylated hemoglobin (Hgb A1c) (12/17/2024 10:00 AM EDT) Pathologist [facility] Hemoglobin A1C 6.3(A) 4.0 - 5.7 % QC Media Lot # [id number] Lot# Expiration Date ,780,543 Blood Capillary blood specimen / Unknown 12/17/2024 10:00 AM EDT Clayton Millard MD POINT OF CARE TEST EN TER/EDIT ORDERABLES Final Result * (ABNORMAL) Lipid Panel, Standard (09/09/2024 9:27 AM EDT) Triglycerides 186(H) <150 mg/dL [facility] Comment:Desirable Triglyceri de: less than 150 mg/dLBorderline High Triglyceride 150-199 mg/dLHigh Triglyceride: 200-499 mg/dLVery High Triglyceride: greater than or equal to 5OO mg/dL Cholesterol 187 <200 mg/dL [facility] Comment:Desirable Cholestero l: less than 200 mg/dLBorderline High Cholesterol: 200-239 mg/dLHigh Cholesterol: greater than 239 mg/dL LDL Cholesterol Calculated 118(H) <100 mg/dL [facility] Comment:Desirable LDL: less than 100 mg/dLNear Optimal/Above Optimal LDL: 110- 129 mg/dLBorderline High LDL: 130-159 mg/dLHigh LDL: 160-189 mg/dLVery High LDL: greater than or equal to 190 mg/dL HDL Cholesterol 32(L) >40 mg/dL [facility] Comment:Desirable HDL: great er than 40 mg/dL Note: This HDL assay may give artificially low results in patients with liver disease. Blood Venous blood specimen / Unknown 09/09/2024 9:27 AM EDT 09/09/2024 11:20 AM EDT Clayton Millard MD LAB BLOOD ORDERABLES Final Result [facility] [address] [place] [phone] * Albumin, Random Urine W/Creatinine (12/14/2023 9:20 AM EDT) Creatinine, Urine 167.95 mg/dL [facility] Microalbumin Urine 8.0 mg/L [facility] Microalbum Creatinine Ratio Ur 4.7 <30 ug/mg cr [facility] Comment:Albumin/Creatinine R atio Reference Ranges: Normal: < 30 ug/mg creatinine Microalbuminuria: 30 - 300 ug/mg creatinineClinical Albuminuria: > 300 ug/mg creatinine Urine (Urine, Random) 12/14/2023 9:20 AM EDT 12/14/2023 11:13 AM EDT Clayton Millard MD LAB URINE ORDERABLES Final Result [facility] [address] [place] [phone] * Hepatitis C Antibody with Reflex to HCV, RNA, Quantitative, Real-Time PCR (04/04/2022 10:44 AM EST) Hepatitis C Antibody NON-REACT FRANCHESCA NON-REACT FRANCHESCA [employer] Index <0.02 <1.00 [facility] Comment: HCV antibody was non-reactive. There is no laboratory evidence of HCV infection. In most cases, no further action is required. However, if recent HCV exposure is suspected, a test for HCV RNA (test code 00883) is suggested. For additional information please refer to http://education.Veeda/faq/UGG45o3 (This link is being provided for informational/ educational purposes only.) Blood Venous blood specimen / Unknown 04/04/2022 10:44 AM EST 04/04/2022 10:44 AM EST Narrative [facility] - 04/05/2022 6:45 PM EST FASTING:YES FASTING: YES Clayton Millard MD LAB BLOOD ORDERABLES Final Result [facility] [address] [place] [address], [facility], [place] [phone] [facility] [address] [facility], ([address]) [place] [phone] from Last 3 Months or Most Recently Relevant to Health Maintenance Additional Health Concerns Active Problems Noted Date [...] 03/06/2025 Patient has chronic kidney disease 03/06/2025 Insurance [facility] (HMO D-SNP) [place] [id number] Care Teams Meat Loiner Relationship Specialty Start Date End Date Clayton Lyon MD [address] [place] [address] PCP - General Internal Medicine 11/12/13 Chris Leal MD [address] [place] [address] Cardiology 07/10/24 [facility] 08/18/21
--- OUTSIDE RECORDS SUMMARY | 2025-03-11 08:23 | XMS_ITS | Encounter Summary ---
Author Organization [facility] Address [address] [place] [address] [address] [place] [address] Care Team Providers Care Cook Helper Name Role Phone Clayton Lyon MD Primary Care Provide r Chris Leal MD Unavailable [phone] Encounter Details Date Type Department Care Team (Latest Contact Info) Description 10/16/2020 Abstract [facility] CONVERSIONS Dental, Provider, DDS Social History [...] 04/08/2025 11:30 AM EST Office Visit [facility] [address] [place] [phone] Clayton Lyon MD [address] [place] [phone] 10/10/2025 9:30 AM EDT Medication Management [facility] [address] [place] [phone] Ban Toribio, PharmD [address] [place] [address] documented as of this encounter Visit Diagnoses Not on filedocumented in this encounter Care Teams Cook Helper Relationship Specialty Start Date End Date Clayton Lyon MD [address] [place] [address] PCP - General Internal Medicine 11/12/13 Chris Leal MD [address] [place] [address] Cardiology 07/10/24 [facility] 08/18/21 documented as of this encounter
[2025-03-11 09:42] LABS: Prostate Specific Antigen 0.40 ng/mL (<0.05-4.0)
== END 2025-03-11 08:09 | disposition home or self-care (01) ==
LOC: HO.LAB 08:08
PROVIDERS: PCP Internal Medicine; Visit Provider Urology
DX: Z12.5 Encounter for screening for malignant neoplasm of prostate (principal); N52.01 Erectile dysfunction due to arterial insufficiency
CPT/HCPCS: 36415; 84153